=== PATIENT | female | born 1965 | race Caucasian/White ===

== ENCOUNTER → 2019-06-28 | Outpatient (CLI) | payer OTHER ==
--- NOTE | 2019-06-30 08:22 | CT ---
EXAMINATION TYPE: CT chest w con DATE OF EXAM: 06/28/2019 COMPARISON: NONE HISTORY: Cough. Neoplasm of unspecified behavior. CT DLP: 403 mGycm. Automated Exposure Control for Dose Reduction was Utilized. TECHNIQUE: CT scan of the thorax is performed following with IV Contrast, patient injected with 100m l mL of Isovue 300. FINDINGS: LUNGS: There is moderate centrilobular and paraseptal emphysema. There is a spiculated left upper lob e nodule measuring 1.3 x 1.0 cm. This radiates to the pleural surface and is laterally positioned. Th ere is a cavitary lesion within the right lower lobe measuring 1.5 x 2.7 cm. This also has a spiculat ed appearance. There is a probable high density, appearing calcified, granuloma in the right lateral upper lobe measuring 3 mm that is subpleural location on series 4 image 19. Bandlike pleural parenchy mal scarring on image 27 of the medial left upper lobe and mediastinum. MEDIASTINUM: There are no greater than 1 cm hilar or mediastinal lymph nodes. No pericardial effus ion is seen. OTHER: Mild degree hepatic steatosis is seen, limiting evaluation for hepatic masses. Liver is not en tirely visualized on the CT thorax. There is a left adrenal gland mass measuring 2.6 x 1.9 cm that do es not fit criteria for a benign adenoma. Mild multilevel degenerative disc disease of the thoracic s pine. IMPRESSION: 1. Spiculated left upper lobe nodule and cavitary spiculated right lower lobe nodule that should both be considered neoplasm until proven otherwise. PET/CT could assess for staging if not previously per formed. 2. Left adrenal gland mass, suspicious for metastasis. 2.
== END | disposition home or self-care (01) ==
LOC: RADCTMAIN 16:20
PROVIDERS: ATTEND Family Medicine
DX: R91.1 Solitary pulmonary nodule (principal); D49.1 Neoplasm of unspecified behavior of respiratory system
CPT/HCPCS: 71260; Q9967

== ENCOUNTER → 2019-09-16 | Outpatient (CLI) | payer OTHER ==
--- NOTE | 2019-09-17 11:21 | MM ---
Reason for exam: screening (asymptomatic). Last mammogram was performed 13 years and 6 months ago. History: Patient is postmenopausal and history of other cancer. Family history of breast cancer in aunt. Physical Findings: A clinical breast exam by your physician is recommended on an annual basis and results should be correlated with mammographic findings. MG Screening Mammo w CAD Bilateral CC and MLO view(s) were taken. No prior studies available for comparison. There are scattered fibroglandular densities. There is no discrete abnormality. ASSESSMENT: Negative, BI-RAD 1 RECOMMENDATION: Routine screening mammogram of both breasts in 1 year.
== END ==
LOC: RADMAMWWP 13:34
PROVIDERS: ATTEND Family Medicine
DX: Z12.39 Encounter for other screening for malignant neoplasm of breast (principal)
CPT/HCPCS: 77067

== ENCOUNTER 2019-09-18 10:25 | Day surgery (SDC) | payer OTHER ==
[2019-09-17 09:25] VITALS: BMI 26.6
[~2019-09-18 10:25] MED LIST: ALBUTEROL NEB (CONC) 2.5 MG/0.5 ML INHALATION ONE; ATROPINE SULFATE 0.4 MG/ML 1 ML VIAL IM ONE; LIDOCAINE 1% 20 ML VIAL (10MG/ML) FOR IV START INTRADERMA PRN; LIDOCAINE 2% (PF) 20 MG/ML 5 ML VIAL INHALATION ONE; LIDOCAINE VISCOUS 300 MG/15 ML CUP MUCOUS MEM ONE; SODIUM CHLORIDE 0.9% 1,000 ML IV SCH
[2019-09-18] MEDS: LACTATED RINGERS 1,000 ML IV SCH ×2 (11:20→12:44)
--- NOTE | 2019-09-18 11:55 | CT ---
EXAMINATION TYPE: CT Chest abiola Moeller Protocol DATE OF EXAM: 09/18/2019 COMPARISON: Chest CT June 28, 2019 HISTORY: bronchoscopy navigation guidance, abnormal CT. CT DLP: 581 mGycm Automated exposure control for dose reduction was used. FINDINGS: Exam is for microscopy planning and not for diagnostic purposes. There is background chronic emphysem atous change redemonstrated. There is persistent irregular scarlike lesion superior left lower lobe a butting the fissure with areas of lucency and spiculated soft tissue density consistent with cavitary lesion redemonstrated. There is more suspicious spiculated 1.3 x 1.0 cm nodule lateral left upper lo be redemonstrated. No significant change from prior study. IMPRESSION:
[2019-09-18] MEDS ORDERED: GLYCOPYRROLATE 0.2 MG/ML 2 ML VIAL ONE (12:46)
[2019-09-18] MEDS ORDERED: PROPOFOL 10 MG/ML 20 ML VIAL IV ONE (12:46)
[2019-09-18] MEDS ORDERED: MIDAZOLAM 2 MG/2 ML VIAL ONE (12:46)
[2019-09-18] MEDS ORDERED: NEOSTIGMINE 1 MG/ML 10 ML VIAL ONE (12:46)
[2019-09-18] MEDS ORDERED: LIDOCAINE 1% INJ 10MG/ML (20 ML MDV) ONE (12:46)
[2019-09-18] MEDS ORDERED: SUCCINYLCHOLINE CHLORIDE 100 MG/5 ML SYR IV ONE (12:46)
[2019-09-18] MEDS ORDERED: fentaNYL (PF) 50 MCG/ML 2 ML AMP ONE (12:46)
[2019-09-18] MEDS ORDERED: ROCURONIUM BROMIDE 10 MG/ML 10 ML VIAL IV ONE (12:46)
[2019-09-18] MEDS ORDERED: LACTATED RINGERS 1,000 ML IV ONE (13:49)
[2019-09-18 14:17] VITALS: TEMP 97.2
[2019-09-18 14:42] VITALS: RESP 16
--- NOTE | 2019-09-18 14:55 | XR ---
EXAMINATION TYPE: XR chest 1V portable DATE OF EXAM: 09/18/2019 COMPARISON: CT chest dated 09/18/2019 HISTORY: Status post bronchoscopy. Left upper lobe biopsy TECHNIQUE: Single frontal view of the chest is obtained. FINDINGS: No postprocedural pneumothorax is seen. Peripheral left upper lobe opacity relates to the known pulmonary nodule. No focal consolidation, pleural effusion or pneumothorax. Cardia mediastinal silhouette is within normal limits. IMPRESSION: No pneumothorax status post bronchoscopy and left upper lobe biopsy.
[2019-09-18 15:51] VITALS: BP 118/76; PULSE 84
--- NOTE | 2019-09-18 20:26 | PCN ---
PROCEDURE NOTE PROCEDURE: Navigational bronchoscopy. PREOPERATIVE DIAGNOSES: 1. Solitary pulmonary nodule, left upper lobe. 2. Solitary pulmonary nodule, right lower lobe. 3. Rule out cancer. POSTOPERATIVE DIAGNOSES: 1. Solitary pulmonary nodule, left upper lobe. 2. Solitary pulmonary nodule, right lower lobe. 3. Rule out cancer. PROCEDURES: Bronchoscopy, bronchoalveolar lavage, multiple transbronchial needle aspirations, brushes, transbronchial biopsies, all of the left upper lobe. OPERATORS: 1. Dr. Harrison Adams. 2. Dr. Trish Livingston. 3. Hi Gomes. DESCRIPTION OF PROCEDURE: The patient's procedure was done in the operating room. It was done under general anesthesia. The CARD CLEANER and anesthesiologist provided general anesthesia. There was informed consent and universal timeout. The patient's procedure was done in room #2 in the operating room. After the patient was adequately sedated and anesthetized and on the ventilator, the bronchoscope was inserted through the bronchoscope adapter connected to the endotracheal tube. There were two lesions to look at. There was one in the right lower lobe, which we could not get to. The other lesion was in the periphery of the left upper lobe. Under electromagnetic guidance, we did multiple transbronchial biopsies to the left upper lobe lesion. We also did transbronchial needle aspirations to the left upper lobe lesion. We brushed the left upper lobe lesion and we washed the left upper lobe lesion. There were no immediate complications. There was no significant bleeding. The patient tolerated the procedure well and was stable throughout the procedure. A chest x-ray will be done to rule out pneumothorax. The specimens will be sent to the laboratory for analysis. MMODL / IJN: [id number] /
== END 2019-09-18 16:03 | disposition home or self-care (01) ==
LOC: ORWHC2ENDO 10:25
PROVIDERS: ATTEND Internal Medicine Critical Care Medicine
DX: R91.1 Solitary pulmonary nodule (principal); Z88.2 Allergy status to sulfonamides; Z79.899 Other long term (current) drug therapy; Z72.0 Tobacco use; J44.9 Chronic obstructive pulmonary disease, unspecified; K21.9 Gastro-esophageal reflux disease without esophagitis; R06.00 Dyspnea, unspecified; Z87.01 Personal history of pneumonia (recurrent); Z83.3 Family history of diabetes mellitus; Z80.49 Family history of malignant neoplasm of other genital organs; F17.200 Nicotine dependence, unspecified, uncomplicated; N83.209 Unspecified ovarian cyst, unspecified side; Z79.82 Long term (current) use of aspirin
CPT/HCPCS: 88104; 88108; 88305; 88173; 71045; 71250; 31628; 31623; 31624; 31627; J2250; J2710; J2001; J3010; J0330; J2704; 31625; 31633

== ENCOUNTER → 2020-06-19 | Outpatient (CLI) | payer OTHER ==
--- NOTE | 2020-06-19 16:14 | MR ---
EXAMINATION TYPE: MR brain wo/w con DATE OF EXAM: 06/19/2020 1:29 PM COMPARISON: NONE HISTORY: Malignant neoplasm of lower lobe rt lung, dizzziness CONTRAST: Patient received 7.5 mL intravenous Gadavist gadolinium contrast. Multiplanar and multispin-echo imaging of the brain was performed . Pre and post contrast enhanced i mages are obtained. The ventricles, basal cisterns and sulci overlying the cerebral convexities are minimally enlarged. There is evidence of mild periventricular white matter ischemic demyelination. Remote deep white matter insults are also noted. No acute edema is seen on diffusion weighted imaging. There is no evidence for midline shift or mass effect. Acute intracranial hemorrhage or extra-axial collection is not evident. No enhancing lesions are seen. The paranasal sinuses and mastoid air cells are well-aerated. IMPRESSION: Age-related atrophic and chronic small vessel ischemic change. No acute intracranial process at this time. No enhancing lesions are seen.
== END | disposition home or self-care (01) ==
LOC: RADMRIMAIN 12:27
PROVIDERS: ATTEND Internal Medicine Hematology & Oncology
DX: C34.31 Malignant neoplasm of lower lobe, right bronchus or lung (principal); C34.12 Malignant neoplasm of upper lobe, left bronchus or lung; G31.1 Senile degeneration of brain, not elsewhere classified; I67.82 Cerebral ischemia
CPT/HCPCS: 70553; A9585

== ENCOUNTER → 2020-07-13 | Outpatient (CLI) | payer OTHER ==
[2020-07-13 10:15] LABS: African American GFR (CKD) >90 (>60 ml/min/1.73 sqM); Blood Urea Nitrogen 11 mg/dL (7-17); Non-African American GFR(CKD) >90 (>60 ml/min/1.73 sqM)
--- NOTE | 2020-07-13 10:56 | CT ---
EXAMINATION TYPE: CT angio chest DATE OF EXAM: 07/13/2020 COMPARISON: June 28, 2019 HISTORY: SOB, PE, lung CA CT DLP: 285.6 mGycm CONTRAST: CT chest with contrast and 3D reconstruction with MIP imaging is performed with IV Contrast, patient injected with 46 mL of Isovue 370. Contrast-enhanced CT of the chest was performed through the course of the pulmonary arteries with patricia g and mediastinal window settings submitted. 3D reconstruction with MIP imaging was also performed. PULMONARY ARTERIES: The pulmonary arteries and their major tributaries are patent. I do not see kevin dence for sizable filling defect to suggest pulmonary embolic process. LUNGS: There are new irregular areas of soft tissue density within the right upper lobe with internal areas of increased attenuation which may reflect calcification and/or suture material. Measurement i s difficult however the largest area measures 3.5 x 2.5 cm. Focal pleural thickening right lower lobe . Small right-sided pleural effusion. Correlate patient's surgical history. Recurrent neoplasm is not excluded. Infiltrates of other etiology are also not excluded. Similar-appearing but smaller area of density left upper lobe measures 1.3 x 2.7 cm. MEDIASTINUM: Thoracic aorta is of normal caliber,however, evaluation is limited given timing of the contrast bolus. If there is concern for thoracic aortic pathology consider DILIA. Correlate clinicall y . The heart is not enlarged. No evidence for mediastinal mass. No mediastinal lymph nodes greater than 1cm. HILAR STRUCTURES: No evidence for mass. No hilar lymph nodes greater than 1 cm. UPPER ABDOMEN: Left adrenal lesion is unchanged at 2.5 cm. Adenoma versus metastatic disease. Hiatal hernia seen small size. IMPRESSION: 1. There are new irregular areas of soft tissue density within the bilateral upper lobes which may b e postprocedural in nature. Recurrent neoplasm and/or infiltrates difficult to exclude. Correlate cli nically and consider PET/CT correlation. 2. No evidence for pulmonary embolism.
== END | disposition home or self-care (01) ==
LOC: RADCTMAIN 09:31
PROVIDERS: ATTEND Internal Medicine Hematology & Oncology
DX: J98.4 Other disorders of lung (principal); C34.31 Malignant neoplasm of lower lobe, right bronchus or lung
CPT/HCPCS: 82565; 84520; 71275; Q9967

== ENCOUNTER → 2020-07-15 | Outpatient (CLI) | payer OTHER ==
[2020-07-15 18:48] LABS: African American GFR (CKD) 82.3 (60.0-200.0); Albumin 4.5 g/dL (3.80-4.90); Albumin/Globulin Ratio 1.8 (1.60-3.17); Anion Gap 12.3 mmol/L (4.00-12.00); BUN/Creat Ratio 14.44 Ratio (12.00-20.00); Calcium 9.1 mg/dL (8.7-10.3); Carbon Dioxide 24.7 mmol/L (21.6-31.8); Globulin 2.5 g/dL (1.6-3.3); Potassium 4.2 mmol/L (3.5-5.5); Total Bilirubin 0.2 mg/dL (0.3-1.2)
== END | disposition home or self-care (01) ==
LOC: LABWHC1 09:36
PROVIDERS: ATTEND Internal Medicine Interventional Cardiology
DX: R06.02 Shortness of breath (principal)
CPT/HCPCS: 36415; 80053; 83880

== ENCOUNTER → 2021-01-08 | Outpatient (CLI) | payer OTHER ==
--- NOTE | 2021-01-08 15:40 | CT ---
EXAMINATION TYPE: CT chest w con DATE OF EXAM: 01/08/2021 COMPARISON: Prior chest CT July 23, 2020 and older studies. HISTORY: Bilateral lung cancer CT DLP: 411.8 mGycm. Automated Exposure Control for Dose Reduction was Utilized. TECHNIQUE: CT scan of the thorax is performed following with IV Contrast, patient injected with 100 mL of Isovue 300. FINDINGS: LUNGS: Postsurgical change to the left lung apex and upper lobe redemonstrated with linear scarring a nd slightly more thickened tissue and calcification extending towards the left suprahilar region. No significant change from most recent CT. Left apical volume loss with superior hilar retraction redemo nstrated. Also persistent superior medial right lower lobe surgical change with sutures and soft tissue density posterior to the trachea just above the mariano extending inferiorly and laterally. This is grossly u nchanged from recent CT. Scattered additional areas of mild scarring and/or atelectasis. No new or enlarging masses or nodules . MEDIASTINUM: There are no new greater than 1 cm hilar or mediastinal lymph nodes. Stable prominent bu t subcentimeter subcarinal lymph node on image 26 unchanged from June 28, 2019 CT. No cardiomegaly or pericardial effusion is seen. OTHER: Small size hiatal hernia redemonstrated. Persistent left greater than right bilateral adrenal masses unchanged from last few CT studies. IMPRESSION: Overall stable findings consistent with posttreatment change of bilateral lungs. No new o r enlarging mass or adenopathy identified to suggest active neoplastic recurrence.
== END | disposition home or self-care (01) ==
LOC: RADCTMAIN 14:46
PROVIDERS: ATTEND Internal Medicine Hematology & Oncology
DX: C34.31 Malignant neoplasm of lower lobe, right bronchus or lung (principal); C34.12 Malignant neoplasm of upper lobe, left bronchus or lung
CPT/HCPCS: 71260; Q9967

== ENCOUNTER → 2021-07-07 | Outpatient (CLI) | payer OTHER ==
--- NOTE | 2021-07-07 15:01 | CT ---
EXAMINATION TYPE: CT chest w con DATE OF EXAM: 07/07/2021 COMPARISON: 01/08/2021 HISTORY: Lung CA CT DLP: 615 mGycm, Automated exposure control for dose reduction was used. CONTRAST: Performed injected with 100 mL of Isovue 300. TECHNIQUE: Axial images were obtained at 5 mm thick sections. Reconstructed images are reviewed on [employer] computer in the coronal plane. FINDINGS: Portion of the thyroid visualized is normal. There is thickening through the posterior medial right suprahilar region. Some surgical suture extend s towards the pleural margin. This region appears stable. No enlarged mediastinal or hilar adenopathy is evident. The ascending aorta diameter at the level o f the main pulmonary artery is 2.9 cm. The main pulmonary artery diameter at the bifurcation is 2.[address] sections are obtained through the upper abdomen. There is thickening of the left adrenal g land measuring 1.6 cm. This was present previously. Milder thickening appears stable within the right adrenal gland. IMPRESSIONS: 1. Stable appearance to the CT chest. Postsurgical changes increased density remain within the carbonation tester ior medial right upper lobe. 2. Stable appearance of the thickened left adrenal gland
== END | disposition home or self-care (01) ==
LOC: RADCTMAIN 09:32
PROVIDERS: ATTEND Internal Medicine Hematology & Oncology
DX: C34.81 Malignant neoplasm of overlapping sites of right bronchus and lung (principal)
CPT/HCPCS: 71260

== ENCOUNTER → 2022-01-05 | Outpatient (CLI) | payer OTHER ==
--- NOTE | 2022-01-05 14:37 | CT ---
EXAMINATION TYPE: CT chest w con DATE OF EXAM: 01/05/2022 COMPARISON: CT dated 07/07/2021 HISTORY: f/u lung ca CT DLP: 725 mGycm Automated exposure control for dose reduction was used. TECHNIQUE: CT scan of the chest is performed with IV Contrast, patient injected with 100 mL of Isovue 300. FINDINGS: LUNGS: Apparently slightly larger irregular soft tissue lesion at the medial posterior aspect of the right upper lung zone adjacent to the surgical suture measuring 3 cm compared to 2.4 cm previously. M ore soft tissue thickening is also seen inferiorly along the surgical suture with loss of volume. The right posterior lung bases spiculated lesion is slightly more prominent today measuring 2.8 cm yanick red to 2.1 cm previously. The adjacent more medial pleural-based nodule is also more prominent measur ing 5 mm compared to 1.5 mm previously. This is concerning for progressive recurrent/metastatic disea se. Slightly larger minimal right pleural fluid. No left-sided pleural fluid. Stable postsurgical glenroy nges in the left upper lung zone. Patent trachea and main bronchi. MEDIASTINUM: No gross cardiomegaly. The pulmonary trunk measures 3.1 cm which may suggest pulmonary h ypertension. Slightly more prominent subcarinal lymph node measuring 12 mm compared to 10 mm previous ly. Few subcentimeter anterior mediastinal lymph nodes, not well appreciated previously. OTHER: Suspected hepatic steatosis. Stable left adrenal lesion measuring up to 2.5 cm as well as the right adrenal lesion measuring up to 18 mm. No aggressive bone lesion. IMPRESSION: Slightly larger right upper lung zone lesion as well as the spiculated lesion at the posterior aspect of the right lung base and the adjacent pleural-based nodule with more prominent mediastinal lymph n odes as detailed above. This is concerning for recurrent or progressive metastatic disease. Further P ET scan assessment can be considered.
== END | disposition home or self-care (01) ==
LOC: RADCTMAIN 11:59
PROVIDERS: ATTEND Internal Medicine Hematology & Oncology
DX: C34.31 Malignant neoplasm of lower lobe, right bronchus or lung (principal)
CPT/HCPCS: 71260; Q9967

== ENCOUNTER → 2022-01-21 | Outpatient (CLI) | payer OTHER ==
--- NOTE | 2022-01-24 09:57 | PE ---
EXAMINATION TYPE: PET CT fusion skull to thigh DATE OF EXAM: 01/21/2022 COMPARISON: Most recent chest CT January 15, 2022 and older CTs HISTORY: Lung cancer originally diagnosed in 2019 involving both lungs completed chemotherapy Septemb er 2020. The current lung nodules. TECHNIQUE: Following the intravenous administration of 12.55 mCi of F-18 FDG, whole body images are performed from the skull base to the midthigh. Images are reviewed on the computer in the coronal, a xial, and sagittal planes. Reconstructed rotating images are created on independent workstation and reviewed on the computer. A localization and attenuation correction CT is performed in conjunction with the PET scan. Blood glucose level equals 87 SCAN: Subsequent Scan FINDINGS: SKULL BASE AND NECK: No areas of abnormal hypermetabolic uptake. CHEST, MEDIASTINUM, AND HILAR REGION: Posttreatment changes to the left lung apex and right lung base redemonstrated. Persistent mild to moderate parenchymal scarring in the bases right greater than lef t with right basilar volume loss. Areas of slightly more nodular soft tissue fullness or nodularity s how mild hypermetabolic uptake, max SUV is 3.22 corresponding to area of surgical suture and slight s oft tissue thickening axial image 90. ABDOMEN AND PELVIS: No adrenal masses. Normal excretion. Nonspecific prominent bowel uptake right col on near cecum axial image 168 could reflect colonic polyp. The max SUV is 10.6 at this level. Correla tion with colonoscopy is advised if has not been performed recently. OSSEOUS STRUCTURES: No suspicious hypermetabolic uptake. OTHER CT: Normal-appearing appendix. Anteverted uterus. Occasional scattered pelvic phleboliths. Dive rticula in the left and sigmoid colon. IMPRESSION: Posttreatment changes to bilateral lungs most prominent in the right lung base. No convin cing evidence for active local or metastatic malignant recurrence. Organizing scar tissue right lung base favored. Continued CT and/or PET/CT monitoring advised. Possible right colon or cecal large poly p. Correlate clinically.
== END | disposition home or self-care (01) ==
LOC: RADPETMAIN 16:22
PROVIDERS: ATTEND Internal Medicine Hematology & Oncology
DX: C34.31 Malignant neoplasm of lower lobe, right bronchus or lung (principal)
CPT/HCPCS: 78815; A9552

== ENCOUNTER → 2022-08-16 | Outpatient (CLI) | payer OTHER ==
--- NOTE | 2022-08-17 08:46 | CT ---
EXAMINATION TYPE: CT angio chest DATE OF EXAM: 08/17/2022 COMPARISON: 06/21/2022 HISTORY: 57-year-old female I26.99, other pulmonary embolism without acute cor pulmonale. TECHNIQUE: Contiguous axial scanning of the chest performed with IV Contrast, patient injected with 5 3 mL of Isovue 370. Coronal/sagittal MIP reconstructions performed. CT DLP: 461.7 mGycm Automated exposure control for dose reduction was used. FINDINGS: Heart upper limits of normal in size. Trace pericardial fluid Aorta normal caliber conventional arch was a branching anatomy. Satisfactory opacification of the pulmonary system but with mild breathing motion artifact. No defini te pulmonary embolus seen with particular attention to the area in the left lower lobe. No increasing thoracic lymphadenopathy. However, there are scattered areas of increasing pleural based soft tissue thickening, for example, l ateral right upper lung and 1.6 cm versus 7 mm, previously. Anteromedial right lung measuring up to 7 mm. Posterolateral right lower lobe at 1.1 cm versus 7 mm, previously. Posteromedial subpleural thickening measures up to 2.8 x 1.8 cm versus 3.3 x 1.7 cm, previously, not significantly changed. However, new from 01/21/2022. Areas of chronic consolidation and volume loss at the right perihilar region extending to the anterio r right base2 and left midlung remain unchanged from 06/21/2022. Background moderate centrilobular emp hysema. Scattered areas of subpleural reticular opacity, probably scarring. Similar to 06/21/2022. Small hiatal hernia. Visualized upper abdomen suggests underlying hepatic steatosis. Unchanged low density nodularity of both adrenal glands measuring up to 2.9 x 1.5 cm on the left and 2.0 x 1.4 cm on the right. Bones: No osseous destructive process. IMPRESSION: 1. NO EVIDENCE FOR PULMONARY EMBOLUS WITH PARTICULAR ATTENTION TO THE PREVIOUSLY MENTIONED AREA IN TH E LEFT LOWER LOBE. 2. EXTENSIVE BILATERAL POSTTREATMENT CHANGES, RIGHT GREATER THAN LEFT. AREAS OF SUBPLEURAL THICKENING THROUGHOUT THE RIGHT HEMITHORAX ARE EITHER SIMILAR OR INCREASING COMPARED TO 06/21/2022 AND MOST OF T HE CHANGES ARE ENTIRELY NEW FROM 01/21/2022. FINDINGS MAY REFLECT EXTENSIVE SCARRING AND PROGRESSIVE P OSTTREATMENT CHANGE. ONGOING CLOSE SURVEILLANCE RECOMMENDED. IF CLINICAL CONCERN FOR RECURRENT DISEAS E, PET/CT CAN BE CONSIDERED. 3. SMALL HIATAL HERNIA AND BILATERAL LIPID RICH ADRENAL ADENOMAS REDEMONSTRATED.
== END | disposition home or self-care (01) ==
LOC: RADCTMAIN 13:26
PROVIDERS: ATTEND Internal Medicine Critical Care Medicine
DX: I26.99 Other pulmonary embolism without acute cor pulmonale (principal); K44.9 Diaphragmatic hernia without obstruction or gangrene; D35.00 Benign neoplasm of unspecified adrenal gland
CPT/HCPCS: 71275; Q9967

== ENCOUNTER → 2022-09-02 | Outpatient (CLI) | payer OTHER ==
--- NOTE | 2022-09-03 11:51 | PE ---
EXAMINATION TYPE: PET CT fusion skull to thigh DATE OF EXAM: 09/02/2022 CLINICAL INDICATION:Female, 57 years old with history of [id number]; TECHNIQUE: Following the intravenous administration of 9.7 mCi of F-18 FDG, whole body images are performed from the skull base to the midthigh. Images are reviewed on the computer in the coronal, a xial, and sagittal planes. Reconstructed rotating images are created on independent workstation and reviewed on the computer. A non-contrast CT is performed in conjunction with the PET scan. Glucose level 88 mg/dL COMPARISON: CT 06/21/2022. PET/CT 01/21/2022, FINDINGS: Mediastinal SUV mean is 1.3. Hepatic parenchyma SUV mean is 1.9. SKULL BASE AND NECK: No suspicious FDG activity. CHEST, MEDIASTINUM, AND HILAR REGION: Somewhat curvilinear uptake is seen within the right lower lung max SUV 5.2 previously 3.2. Some of the uptake is along the medial pleura No focus of uptake definit ively visualized. There is somewhat loculated pleural effusion present on the right. There is postsur gical change the bilateral lungs. ABDOMEN AND PELVIS: No suspicious FDG activity. OSSEOUS STRUCTURES: No suspicious FDG activity. OTHER CT: Adenomatous hypertrophy changes of the adrenal glands bilaterally left greater than right. Scattered clonic diverticulosis. Appendix is normal. Left posterior lower neck muscle strain with mil d FDG activity. IMPRESSION: No convincing evidence for recurrence, streaky curvilinear uptake within the right lung base with mil dly elevated FDG activity. Findings likely represent atelectasis/infectious/inflammatory process. Att ention on follow-up imaging.
== END | disposition home or self-care (01) ==
LOC: RADPETMAIN 06:55
PROVIDERS: ATTEND Internal Medicine Hematology & Oncology
DX: C34.31 Malignant neoplasm of lower lobe, right bronchus or lung (principal); C34.12 Malignant neoplasm of upper lobe, left bronchus or lung
CPT/HCPCS: 78815; A9552

== ENCOUNTER → 2022-09-12 | Outpatient (CLI) | payer OTHER ==
--- NOTE | 2022-09-12 14:25 | US ---
EXAMINATION TYPE: US venous doppler duplex LE BI DATE OF EXAM: 09/12/2022 2:11 PM COMPARISON: NONE CLINICAL HISTORY: M79.661 pain right leg M79.662 pain left leg. History of lung cancer. SIDE PERFORMED: Bilateral TECHNIQUE: The lower extremity deep venous system is examined utilizing real time linear array sonog piper with graded compression, doppler sonography and color-flow sonography. VESSELS IMAGED: Common Femoral Vein Deep Femoral Vein Greater Saphenous Vein * Femoral Vein Popliteal Vein Small Saphenous Vein * Proximal Calf Veins (* superficial vessels) Right Leg: Negative for DVT Left Leg: Negative for DVT Grayscale, color doppler, spectral doppler imaging performed of the deep veins of the bilateral lower extremities. There is normal flow, compressibility, vascular waveforms. IMPRESSION: No ultrasound evidence for acute DVT in either lower extremity.
== END | disposition home or self-care (01) ==
LOC: RADUSWWP 13:35
PROVIDERS: ATTEND Internal Medicine Critical Care Medicine
DX: M79.661 Pain in right lower leg (principal); M79.662 Pain in left lower leg
CPT/HCPCS: 93970

== ENCOUNTER → 2023-01-25 | Outpatient (CLI) | payer OTHER ==
--- NOTE | 2023-01-25 14:15 | P.PAINPG ---
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 Pt states pain level is at 7/10 in intensity, constant, localized in the R mid back, sharp, stabbing in character w shooting pain towards the R side of chest and R mid back. Pain is provoked by bending. Pain is alleviated slightly by medications ([place], Neurontin), injections in the past, repositioning and rest. PMH: Lung CA (2019) PSH: Tonsillectomy, CHIO [place] Resection, RLL Resection, R Chest Tube SH: Hx of 15 pack/ yr tobacco use, Rare ETOH use, No illicit drug use FH: Fa- CA. Mo- CA, DVT, PE. All: See list Meds: See list REVIEW OF ORGAN SYSTEMS: CONSTITUTIONAL: No fevers or chills. No recent weight loss. NEUROLOGICAL: + numbness and tingling along the distal extremities. No seizure disorders or headaches. MUSCULOSKELETAL: + pain PSYCHIATRIC: Denies current depression or suicidal thoughts. Physical Examinations : Constitutional : Cooperative , not in acute distress . Neurologic : Cranial nerve II to XII intact. No focal neurological deficits. Psychiatric : alert & oriented x 3. Matching mood & appropriate affect. Judgment & insight intact. Musculoskeletal : Cervical Spine Motor strength in the deltoid and biceps: Normal right side. Normal Left side Motor strength biceps and the wrist extensors: Normal right side . Normal left side Motor strength in the triceps muscle: Normal right side. Normal left side Deep tendon reflexes: Normal at the biceps. Normal at Brachioradialis. Normal at triceps Vertebral body tenderness to deep palpation over Cervical facet loading test: positive bilaterally Spurling test: positive bilaterally Neck distraction test: positive bilaterally Stefania sign: positive bilaterally Thoracic spine TTP over T7, T8, T9. Incisional Scar pre sent. Lumbar spine Motor strength lower extremities ,thigh and legs 5/5 Right side , 5/5 Left side Deep tendon reflexes : Normal Knee Jerk. Normal Ankle Jerk Vertebral body tenderness over Lumbar facet Loading Test: positive Right / positive Left Range of motion of the lumbar spine Flexion 30 degrees, extension 10 degrees Straight Leg Raise test: Left/ Right positive at degree German test: positive right / positive left. Severe tenderness over the Sacroiliac joint on the Right / Left sides Gaenslen test: positive bilaterally Seated flexion test: positive bilaterally. Sacral spine : Severe tenderness over the Sacroiliac joint: right side / left side Range of motion: Flexion of the lumbar spine <60 degrees Range of motion: Extension of the lumba r spine <20 degrees Gaenslen's Test positive Marlon's Test positive German test: positive right side / left side Thigh Thrust Test Sacral Thrust Test Imaging: CT scan chest from 01/05/23 reviewed Assessment/ Plan : Intercostal Neuralgia Recommendation of R Intercostal NB T7, T8, T9. May need a series of injectins for optimal pain relief. May need RF for senior living pain relief. Risks, benefits of procedure discussed and patient verbalized understanding. Admits to aspirin or anti- coagulant use or medical history of diabetes. Protocol for discontinuation/ continuation of medications francecsa procedure discussed. All questions answered. I have spent greater than 30 minutes on patient care today. Dr Gamez was available by phone for the evaluation of this patient. The time was used to re view the medical records including relevant urine studies and Prescription history (MAPs), review of the available imaging, evaluation and examination of the patient, coordination of care with the medical staff and if applicable referring physicians, as well as creation of the medical record PQRS Narrative: Smoking Status Current every day smoker Home Medications: Ambulatory Orders Albuterol Inhaler [Ventolin Hfa Inhaler] 1 - 2 puff INHALATION RT-Q6H PRN 09/17/19 Cetirizine HCl [Zyrtec] 10 mg PO DAILY 06/21/22 Gabapentin [Neurontin] 100 mg PO BID 06/21/22 Ibuprofen [Motrin Ib] 600 mg PO Q5H PRN 06/21/22 Omeprazole Magnesium [PriLOSEC OTC] 20 mg PO BID 06/21/22 Apixaban [Eliquis] 5 mg PO BID 30 Days #60 tab 06/24/22 Apixaban [Eliquis] 10 mg PO BID 10 Days #20 tab 06/24/22 Fluticasone/Vilanterol [Breo Ellipta 200-25 Mcg Inhaler] 1 puff INHALATION RT- DAILY 30 Days #1 each 06/24/22 Ipratropium-Albuterol Nebulize [Duoneb 0.5 mg-3 mg/3 ml Soln] 3 ml INHALATION RT-QID 30 Days #300 ml 06/24/22 methylPREDNISolone Dose Pack [Medrol Dose Pack] 4 mg PO DIRECTED #1 packet 06/24/22 Controlled Substance Measures - Controlled Substance Measures Is patient prescribed a controlled substance at discharge?: No
[2023-01-25 15:06] VITALS: BP 136/80; PULSE 120; RESP 18; TEMP 98.4
== END ==
LOC: PNWHC3 10:58
PROVIDERS: ATTEND Specialist
DX: C34.90 Malignant neoplasm of unspecified part of unspecified bronchus or lung (principal); F17.200 Nicotine dependence, unspecified, uncomplicated; G58.0 Intercostal neuropathy; Z88.2 Allergy status to sulfonamides
CPT/HCPCS: 99211

== ENCOUNTER 2023-03-02 07:16 | Day surgery (SDC) | payer OTHER ==
[2023-02-28 14:01] VITALS: BMI 32.1
[~2023-03-02 07:16] MED LIST changes: -ALBUTEROL NEB (CONC) 2.5 MG/0.5 ML INHALATION ONE; -ATROPINE SULFATE 0.4 MG/ML 1 ML VIAL IM ONE; +LACTATED RINGERS 1,000 ML IV SCH; -LIDOCAINE 1% 20 ML VIAL (10MG/ML) FOR IV START INTRADERMA PRN; -LIDOCAINE 2% (PF) 20 MG/ML 5 ML VIAL INHALATION ONE; -LIDOCAINE VISCOUS 300 MG/15 ML CUP MUCOUS MEM ONE; -SODIUM CHLORIDE 0.9% 1,000 ML IV SCH
[2023-03-02 07:56] VITALS: TEMP 98.8
[2023-03-02] MEDS ORDERED: MIDAZOLAM 2 MG/2 ML VIAL ONE (08:06)
[2023-03-02] MEDS ORDERED: ROPIVACAINE 5 MG/ML 20 ML AMPULE ONE (08:06)
[2023-03-02] MEDS ORDERED: methylPREDNISolone ACETATE 40 MG/ML 1 ML VIAL ONE (08:06)
[2023-03-02] MEDS ORDERED: fentaNYL (PF) 50 MCG/ML 2 ML AMP ONE (08:06)
[2023-03-02 08:40] VITALS: RESP 20
[2023-03-02] MEDS ORDERED: IV FLUID CONTINUATION 850 ML IV ONE (08:43)
[2023-03-02 08:55] VITALS: BP 119/72; PULSE 105
--- NOTE | 2023-03-02 08:55 | FL ---
EXAMINATION TYPE: FL guided pain mgmt statistic DATE OF EXAM: 03/02/2023 CLINICAL HISTORY: Mid back pain. TECHNIQUE: Fluoroscopy. COMPARISON: None. FINDINGS: Fluoroscopic guidance was provided during pain relief procedure performed by Dr. Andino. A total of 13 seconds of fluoroscopic time was utilized during the procedure and 1 spot images are a cquired. Single image acquired shows needle localization at several levels in the posterior ribs adj acent to the thoracic spine. IMPRESSION: As Above.
--- NOTE | 2023-03-02 10:48 | P.PCN ---
Date of Procedure: 03/02/23 Description of Procedure: Preop diagnosis, and postop diagnosis : Postthoracotomy pain syndrome, and intercostal neuralgia, history of lung cancer Procedure : Right side T7, T8, and T9 intercostal nerve block under fluoroscopic guidance Surgeon : Edgar Andino Anesthesia : 1% lidocaine, and Versed 2 mg, and fentanyl 50 g Sedation supervision times : 809 - 08 Estimated blood loss: None Complications: None Specimen removed: None Fluoroscopic images : Saved to electronic medical records Indication for procedure: Patient had chronic history of right side T7, T8, and T9 intercostal neuralgia after thoracotomy. She tried conservative therapy. PROCEDURE DESCRIPTION: The patient was seen and identified in the preoperative area. After discussing the risks, benefits, possible complications, and alternatives with the patient, the patient signed informed consent. Peripheral IV line was placed. Vital sings were taken and stable throughout the procedure. PROCEDURE DESCRIPTION: The patient was placed in prone position on the procedure table. Critical pause was taken. Right thoracic area was prepped with ChloraPrep and draped in the usual sterile fashion. The fluoroscopic camera was then placed over the thoracic spine to identify the T7, T8, and T9 rib just s everal centimeters lateral from the corresponding vertebral bodies. The skin overlying the target areas was superficially localized with 0.5 ml-1% lidocaine using 27-gauge 1.5-inch needle. Then a 22-gauge 3-1/2-inch needle was guided by fluoroscopy on to the T 7, T8, and T9 rib. Then the needle was walked off under fluoroscopic guidance just inferior to the corresponding ribs. After negative a spiration for CSF, blood, air, and other bodily contents and with no paresthesias. Then, again after negative aspiration for CSF, blood, air, and other bodily contents and with no paresthesias, the area was infiltrated with 3 mL of a block solution. The block solution contained 8 mL of 0.5% preservative- free ropivacaine mixed with 40 mg of Depo-Medrol. All injections, except for local skin anesthetic, were performed using extension tubing. The needle was removed. Band-Aid was applied. The patient tolerated the procedure well. Disposition : The patient tolerated the procedure very well. The patient was given detailed discharge instructions for infection, bleeding, and increased pain at the injection site, and was advised to seek immediate medical attention should significant side effects develop. Patient was given discharge instructions regarding for pneumothorax.. Patient clearly understood and if noticed any shortness of breath commanded to call 911 or come to the [facility] emergency department immediately. The patient scheduled to follow up with pain clinic in 4 week duration.
== END 2023-03-02 09:00 | disposition home or self-care (01) ==
LOC: ORPAIN 07:16
DX: G89.12 Acute post-thoracotomy pain (principal); M79.2 Neuralgia and neuritis, unspecified; Z88.2 Allergy status to sulfonamides; K21.9 Gastro-esophageal reflux disease without esophagitis; J44.9 Chronic obstructive pulmonary disease, unspecified; Z90.89 Acquired absence of other organs; Z98.890 Other specified postprocedural states; Z79.899 Other long term (current) drug therapy
CPT/HCPCS: 64420; 64421; 99152; J2250; J1030; J3010; J2795

== ENCOUNTER → 2023-03-17 | Outpatient (CLI) | payer OTHER ==
--- NOTE | 2023-03-18 09:30 | PE ---
EXAMINATION TYPE: PET CT fusion skull to thigh DATE OF EXAM: 03/17/2023 CLINICAL INDICATION:Female, 58 years old with history of C34.31; TECHNIQUE: Following the intravenous administration of 12.0 mCi of F-18 FDG, whole body images are performed from the skull base to the midthigh. Images are reviewed on the computer in the coronal, a xial, and sagittal planes. Reconstructed rotating images are created on independent workstation and reviewed on the computer. A non-contrast CT is performed in conjunction with the PET scan. Glucose level 91 mg/dL COMPARISON: CT 08/17/2022, PET/CT most recent 03/17/2023 and prior 01/24/2022. FINDINGS: Mediastinal SUV mean is 1.6. Hepatic parenchyma SUV mean is 2.4. SKULL BASE AND NECK: FDG activity at the level of the larynx somewhat circumferential max SUV 6.0, previously 2.2. CHEST, MEDIASTINUM, AND HILAR REGION: The right lung demonstrates scattered areas of pleural thickening some of which does not demonstrate increased FDG activity including an area near the right apex laterally measuring up to 17 mm in thick ness and max SUV 1.3. Other areas along the pleura are redemonstrated along the medial pleura max SUV 6.9 on today's exam, previously 4.3. And more anteriorly max SUV 4.8, previously 2.9 and more latera lly within an area in calcification max SUV 7.1. Overall the soft tissue thickening along the medial pleura is not significantly changed when comparing to prior. ABDOMEN AND PELVIS: No suspicious FDG activity. OSSEOUS STRUCTURES: No suspicious FDG activity. OTHER CT: Adenomatous hypertrophy changes of the adrenal glands bilaterally left greater than right. Scattered clonic diverticulosis. Appendix is normal. Left posterior lower neck muscle strain with mil d FDG activity. Posterior neck/left shoulder muscle strain IMPRESSION: 1. Interval increase in FDG activity along the right pleura with relatively stable appearance of the volume of nodular thickening. Given the interval increase in FDG activity this raises possibility of recurrent disease with background of post treatment change. No lymphadenopathy identified. 2. FDG activity at the level of vocal cords somewhat diffusely favored to be physiologic. Attention on follow-up imaging and clinical correlation advised.
== END | disposition home or self-care (01) ==
LOC: RADPETMAIN 07:26
PROVIDERS: ATTEND Internal Medicine Hematology & Oncology
DX: C34.31 Malignant neoplasm of lower lobe, right bronchus or lung (principal); R91.1 Solitary pulmonary nodule
CPT/HCPCS: 78815; A9552

== ENCOUNTER → 2023-03-22 | Outpatient (CLI) | payer OTHER ==
[2023-03-22 12:11] VITALS: BP 142/87; PULSE 111; RESP 18
--- NOTE | 2023-03-22 13:48 | P.PAINPG ---
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 Pt states she experienced 80 % pain relief x 3 wks s/p procedure. Pain level is provoked at 8/10 in intensity, constant, localized in the mid thoracic spine, sharp in character w shooting towards the R flank. Pain is provoked by over activity. Pain is alleviated with sitting while veered towards the L, medications, injections, repositioning and rest. Interventional pain procedures completed include R MBB T7-9 x1 Patient is currently on [place], Neurontin, Tyl, Aleve Patient denies any side effects of the medication(s), denies excessive drowsiness or sleepiness, denies suicidal ideation and reports that the current pain medication is helping to control the pain and improve activities of daily living. Patient denies any motor or sensory deficits. Patient denies any fever or night sweats, denies any change in the bowel movements or urination. Physical Examination: -Constitutional: Cooperative. Not in acute distress . - Neurologic: Cranial nerve II to XII intact. No focal neurological deficits. - Psychatric: Alert & oriented x 3. Matching mood & appropriate affect. Judgment and insight intact. - Musculoskeletal: Cervical spine: Muscle bulk/ tone/ strength in the bilateral upper extremities normal Vertebral body tenderness to palpation over Spurling test positive Distraction test positive Facet loading test positive TTP Thoracic spine Muscle bulk / tone/ strength in the bilateral paraspinal muscles normal Vertebral body tender to palpation over Facet loading test positive TTP over R T7-8, T8-9 Lumbar spine: Motor bulk/ tone/ strength lower extremities , thigh and legs : 5/5 Deep tendon reflexes : Normal Knee Jerk. Normal Ankle Jerk . Vertebral body tenderness to palpation over Lumbar Facet Loading Test positive Straight Leg Raise: positive at 30 degrees right side/ left side Gaenslen's Test positive Sacral spine : Severe tenderness over the Sacroiliac joint: right side / left side Range of motion: Flexion of the lumbar spine <60 degrees Range of motion: Extension of the lumbar spine <20 degrees Gaenslen's Test positive right side / left side German test: positive right side / left side Thigh Thrust Test positive right side / left side Sacral Thrust Test positive right side / left side Assessment and plan: Chronic mid back pain secondary to thoracic DDD, spondylosis with facet arthropathy without myelopathy Recommendation of R MBB T7-8, T8-9 #2. May need a series of injections, up until RFA, for optimal pain relief. Risks, benefits of procedure discussed and pt verbalized understanding. Admits to anticoagulant use or medical history of diabetes. Protocol for discontinuation/ continuation of medications francesca procedure discussed. Minimal anesthesia provided, if clinically indicated, consisting of Versed and Fentanyl. All questions answered. I have spent less than 30 minutes on patient care today. Dr Gamez was available by phone for the evaluation of this patient. The time was used to review the medical records including relevant urine studies and Prescription history (MAPs), review of the available imaging, evaluation and examination of the patient, coordination of care with the medical staff and if applicable referring physicians, as well as creation of the medical record PQRS Narrative: Smoking Status Current every day smoker Hx Alcohol Use (MH) No Home Medications: Ambulatory Orders Albuterol Inhaler [Ventolin Hfa Inhaler] 1 - 2 puff INHALATION RT-Q6H PRN 09/17/19 Cetirizine HCl [Zyrtec] 10 mg PO DAILY 06/21/22 Ibuprofen [Motrin Ib] 600 mg PO Q5H PRN 06/21/22 Omeprazole Magnesium [PriLOSEC OTC] 20 mg PO BID 06/21/22 Apixaban [Eliquis] 5 mg PO BID 30 Days #60 tab 06/24/22 Ipratropium-Albuterol Nebulize [Duoneb 0.5 mg-3 mg/3 ml Soln] 3 ml INHALATION RT-QID 30 Days #300 ml 06/24/22 Acetaminophen [Tylenol Extra Strength] 1,000 mg PO Q4H PRN 02/28/23 Budesonide-Formot 160-4.5 Mcg [Symbicort 160-4.5 Mcg Inhaler] 2 puff INHALATION BID 02/28/23 Diclofenac Sodium [Aspercreme Arthritis Pain] 1 applic TOPICAL DAILY 02/28/23 Gabapentin [Neurontin] 300 mg PO TID 02/28/23 HYDROcodone/APAP 5-325MG [[place] 5-325] 1 tab PO Q4HR PRN 02/28/23 Sennosides/Docusate Sodium [Senna Plus 8.6-50 mg Softgel] 1 each PO BID PRN 02/28/23 Controlled Substance Measures - Controlled Substance Measures Is patient prescribed a controlled substance at discharge?: No
== END ==
LOC: PNWHC3 10:58
PROVIDERS: ATTEND Specialist
DX: M51.34 Other intervertebral disc degeneration, thoracic region (principal); M47.814 Spondylosis without myelopathy or radiculopathy, thoracic region; G89.29 Other chronic pain; F17.200 Nicotine dependence, unspecified, uncomplicated; Z88.2 Allergy status to sulfonamides
CPT/HCPCS: 99211

== ENCOUNTER → 2023-06-27 | Outpatient (CLI) | payer OTHER ==
--- NOTE | 2023-06-27 18:46 | CT ---
EXAMINATION TYPE: CT chest w con DATE OF EXAM: 06/27/2023 COMPARISON: 08/16/2022 and PET/CT 03/17/2023 HISTORY: Back pain, lung Ca. CT DLP: 340.8 mGycm Automated exposure control for dose reduction was used. CONTRAST: CT scan of the chest is performed with IV Contrast, patient injected with 100 cc mL of Isovue 300. FINDINGS: LUNGS: Again noted is circumferential pleural thickening throughout the right hemithorax with associa ni volume loss. When compared to the prior study pleural thickening is increased to 13 mm right uppe r lobe medially versus 8 mm previously. Also pleural-based mass measuring 2.1 cm x 1.9 cm versus 2.4 x 1.8 cm previously this below the level of the mariano medially. There is increased parenchymal opaci ty right perihilar region as well as the right lower lobe internal foci of calcification. There is po stoperative changes left apical region with focal density seen in internal increased density. There i s hyperinflation of the left lung. MEDIASTINUM: Subcarinal adenopathy measures 1.6 cm versus 1.1 cm previously. No additional adenopathy greater than 1 cm seen at this time. Thoracic aorta is of normal caliber. The heart is not enlarged. No evidence of pulmonary embolism. UPPER ABDOMEN: Stable left adrenal adenoma. OTHER: No evidence for bony destructive lesion within the [id number]. IMPRESSION: 1. There is increased circumferential pleural thickening throughout the right hemithorax with increa sing pleural-parenchymal infiltrate or opacity right perihilar and right lower lobe regions could ref lect underlying pneumonic infiltrate and/or posttreatment change. Pleural thickening may reflect recu rrent or residual disease as was suggested on recent PET/CT. 2. No evidence for bony lesion significant degenerative change. 3. Posttreatment changes left apical region as well.
== END | disposition home or self-care (01) ==
LOC: RADCTMAIN 17:55
PROVIDERS: ATTEND Internal Medicine Hematology & Oncology
DX: C34.31 Malignant neoplasm of lower lobe, right bronchus or lung (principal)
CPT/HCPCS: 71260; Q9967

== ENCOUNTER → 2023-06-28 | Outpatient (CLI) | payer OTHER ==
--- NOTE | 2023-06-28 10:22 | MR ---
EXAMINATION TYPE: MR thoracic spine wo/w con DATE OF EXAM: 06/28/2023 9:24 AM COMPARISON: CT 829.3, PET/CT 03/27/2023 INDICATION: Patient age:Female; 58 years old; Reason for study: C34.31 LUNG CANCER. Mid back pain TECHNIQUE: Multi planar, multi sequence imaging was performed utilizing: T1-weighted, short-tau inver jake recovery and T2-weighted of the thoracic spine. The patient was not given Gadolinium. IV Contrast: 7.5 cc Gadavist FINDINGS: Alignment: There is mild scoliosis changes with the spinal cord shifted to the right aspect of the sp inal column. Vertebral bodies have preserved heights. Spinal cord: Spinal cord is within normal limits for signal. Discs: Intervertebral disc signal is maintained. No evidence of significant spinal canal or neural fo raminal stenosis. There is no evidence of extradural defects or central spinal canal narrowing at any thoracic vertebral body level Osseous structures: No abnormal bony edema on inversion recovery sequences. Multilevel osteophyte for mation and facet joint arthropathy. Scattered disc space narrowing. There is a high T2 cyst near the medial aspect of the right lung near the base measuring 2.0 x 1.3 cm . This corresponds with prior CT. And likely represents a loculated pleural effusion. There is postco ntrast enhancement around the pleural space on the right. IMPRESSION: 1. No evidence for significant spinal canal or neural foraminal stenosis. Cord signal is maintained. 2. Enhancing pleural space fluid collection as seen on prior CT suggestive of superimposed infection possibly empyema. No evidence for osteolytic myelitis or discitis.
== END | disposition home or self-care (01) ==
LOC: RADMRIMAIN 08:15
PROVIDERS: ATTEND Internal Medicine Hematology & Oncology
DX: C34.31 Malignant neoplasm of lower lobe, right bronchus or lung (principal)
CPT/HCPCS: 72157; A9585

== ENCOUNTER 2023-08-17 06:10 | Day surgery (SDC) | payer OTHER ==
[~2023-08-17 06:10] MED LIST changes: +DEXAMETHASONE SOD PHOSPHATE 4 MG/ML 1 ML VIAL IV ONE; +LIDOCAINE 1% (10MG/ML) FOR IV START INTRADERMA PRN; +ONDANSETRON 4 MG/2 ML VIAL IVP ONE
[2023-08-17] MEDS ORDERED: fentaNYL (PF) 50 MCG/ML 2 ML AMP IV PRN (07:00)
[2023-08-17] MEDS ORDERED: MIDAZOLAM 2 MG/2 ML VIAL IV PRN (07:00)
[2023-08-17] MEDS ORDERED: fentaNYL (PF) 50 MCG/ML 2 ML AMP IVP ONE (07:15)
[2023-08-17] MEDS ORDERED: ROPIVACAINE 5 MG/ML 30 ML VIAL ONE (07:39)
[2023-08-17] MEDS ORDERED: SODIUM CHLORIDE 0.9% (PF) 10 ML VIAL ONE (07:39)
[2023-08-17] MEDS ORDERED: DEXAMETHASONE SOD PHOSPHATE 4 MG/ML 1 ML VIAL ONE (07:39)
[2023-08-17] MEDS ORDERED: GLYCOPYRROLATE 0.2 MG/ML 2 ML VIAL ONE (07:39)
[2023-08-17] MEDS ORDERED: ROCURONIUM 10 MG/ML (5 ML VIAL) IV ONE (07:39)
[2023-08-17] MEDS ORDERED: PHENYLEPHRINE-0.9% NACL SYG 1,000 MCG/10 ML SYRINGE ONE (07:39)
[2023-08-17] MEDS ORDERED: PROPOFOL 10 MG/ML 20 ML VIAL IV ONE (07:39)
[2023-08-17] MEDS ORDERED: MIDAZOLAM 2 MG/2 ML VIAL ONE (07:39)
[2023-08-17] MEDS ORDERED: fentaNYL (PF) 50 MCG/ML 2 ML AMP ONE (07:39)
[2023-08-17] MEDS ORDERED: NEOSTIGMINE 1 MG/ML 10 ML VIAL ONE (07:39)
[2023-08-17] MEDS ORDERED: SUCCINYLCHOLINE CHLORIDE 200 MG/10 ML VIAL IV ONE (07:39)
[2023-08-17] MEDS ORDERED: LIDOCAINE 1% INJ 10MG/ML (20 ML MDV) ONE (07:39)
--- NOTE | 2023-08-17 08:15 | P.ANPRN ---
Procedure Note - Anesthesia - Nerve Block Performed Right Erector Spinae Single Date of Procedure: 08/17/23 Procedure Start Time: 07:14 Procedure Stop Time: :22 Location of Patient: PreOp Indication: Acute Post-Operative Pain, Requested by Surgeon (Dr Asher Em) Sedation Type: Sedate with meaningful contact maintained Preparation: Sterile Prep Position: Prone Catheter: None Needle Types: Pajunk Needle Gauge: 20 Ultrasound used to visualize needle placement: Yes Ultrasound used to observe medication spread: Yes Injectate: 0.5% Ropivacaine (see comment for volume) (20 mL plus Decadron 4 mg)
[2023-08-17] MEDS ORDERED: LACTATED RINGERS 1,000 ML IV ONE (08:34)
[2023-08-17] MEDS ORDERED: BUPIVACAINE (PF) 0.5% 30 ML VIAL SQ ONE ×2 (08:47)
--- NOTE | 2023-08-17 09:31 | P.OP ---
Date of Procedure: 08/17/23 Preoperative Diagnosis: Hx of bilateral adenocarcinoma Postoperative Diagnosis: Same Procedure(s) Performed: 1. Right mini thoracotomy with pleural biopsy 2. Intercostal nerve block - 1 level Surgeon: Asher Em Manager [employer] Systems #1: Cricket Briceño Estimated Blood Loss (ml): 25 Pathology: other (right pleura) Condition: stable Disposition: PACU Indications for Procedure: This patient is a 58 year-old female with a history of bilateral adenocarcinoma resection back in 2019. She had a routine screening PET/CT back in February of this year that revealed right sided pleural thickening with FDG avidity. A repeat CT scan in may confirmed these findings. The patient now requires right sided pleural biopsy to rule out recurrent metastatic disease. Operative Findings: Parietal pleura biopsied. Entry into the chest cavity with visualization with a thorascope revealed no evidence of overt metastatic disease but view was limited. Description of Procedure: The patient underwent erector spinae block in the pre-operative suite. She was brought back to the operating room and placed in the supine position. She was intubated with a single lumen tube and general anesthesia was induced. She was positioned in the left lateral decubitus position and her right chest was prepped and draped in the usual sterile fashion. I made a 2inch incision in the 5th intercostal space anterior axillary line and carried it down using electrocaurtery. The intercostal pleura was entered using a 15 blade and multiple biopsies were taken. I was able to visualize the lung and insert a 10mm thorascope. There was no overt sign of metastatic disease on the lung and visceral pleura appeared normal. Additional biopsies were taken and 1% marcaine was injected into the intercostal space. A 19F wild was placed in the right chest cavity and the incision was closed in layers. The patient was extubated at the end of the procedure.
[2023-08-17] MEDS: HYDROmorphone 0.5 MG/0.5 ML SYRINGE IVP PRN ×2 (09:50→10:02)
[2023-08-17] MEDS ORDERED: METOCLOPRAMIDE 5 MG/ML 2 ML VIAL IVP PRN (10:42)
[2023-08-17] MEDS ORDERED: bisacodyL 10 MG SUPP RECTAL PRN (10:42)
[2023-08-17] MEDS ORDERED: IPRATROPIUM-ALBUTEROL 3 ML NEB IH PRN (10:42)
[2023-08-17] MEDS ORDERED: SENNOSIDES-DOCUSATE SODIUM 1 EACH TAB PO PRN (10:42)
[2023-08-17] MEDS ORDERED: ONDANSETRON 4 MG/2 ML VIAL IVP PRN (10:42)
--- NOTE | 2023-08-17 10:52 | XR ---
EXAMINATION TYPE: XR chest 1V portable DATE OF EXAM: 08/17/2023 10:00 AM CLINICAL INDICATION:Female, 58 years old with history of Status post right pleural biopsy; [facility] COMPARISON: Chest radiographs from the left lung is relatively clear. 06/21/2022 TECHNIQUE: XR chest 1V portable Frontal view of the chest. FINDINGS/IMPRESSION: Interval increase in right pleural effusion with associated atelectasis. Superimposed airspace diseas e not entirely excluded. No evidence of pneumothorax.
[2023-08-17] MEDS: IBUPROFEN 600 MG TAB PO PRN ×2 (11:15→17:24)
[2023-08-17] MEDS: DEXTROSE 5%-0.45% NACL 1,000 ML IV SCH (11:21)
[2023-08-17] MEDS: HYDROcodone/APAP 7.5-325MG 1 EACH TAB PO SCH ×3 (12:38→23:57)
[2023-08-17] MEDS: IPRATROPIUM-ALBUTEROL 3 ML NEB IH SCH ×3 (15:21→21:18)
[2023-08-17] MEDS: GABAPENTIN 300 MG CAP PO SCH ×2 (17:24→21:52)
[2023-08-17] MEDS: HEPARIN SODIUM,PORCINE 5,000 UNIT/ML 1 ML VIAL SQ SCH ×2 (17:25→23:57)
[2023-08-17] MEDS: SYMBICORT 160-4.5 MCG INHALER INHALATION SCH (21:18)
[2023-08-17] MEDS: PANTOPRAZOLE 40 MG TABLET PO SCH (21:59)
[2023-08-17] MEDS: ACETAMINOPHEN TAB 500 MG TAB PO PRN (22:00)
[2023-08-18] MEDS: IBUPROFEN 600 MG TAB PO PRN ×2 (03:39→09:44)
[2023-08-18 03:52] VITALS: TEMP 98.2
[2023-08-18] MEDS: HYDROcodone/APAP 7.5-325MG 1 EACH TAB PO SCH ×2 (06:25→11:29)
[2023-08-18] MEDS: PANTOPRAZOLE 40 MG TABLET PO SCH (06:26)
[2023-08-18] MEDS: ACETAMINOPHEN TAB 500 MG TAB PO PRN (08:43)
[2023-08-18] MEDS: GABAPENTIN 300 MG CAP PO SCH (08:43)
--- NOTE | 2023-08-18 08:46 | XR ---
EXAMINATION TYPE: XR chest 1V DATE OF EXAM: 08/18/2023 HISTORY: Shortness of breath. COMPARISON: 08/17/2023 TECHNIQUE: Single view of the chest is submitted. FINDINGS: Demonstrated are scattered senescent parenchymal change. Stable appearance of the chest with right-sided pleural effusion as well as patchy right perihilar an d right basilar infiltrate and/or atelectasis. Right basilar chest tube noted. The left lung is clear . The heart is stable. Hilar and mediastinal structures are within normal limits. Degenerative changes are seen of the dorsal spine. IMPRESSION: 1. Stable chest
[2023-08-18 08:49] VITALS: BP 108/56; RESP 16
[2023-08-18] MEDS ORDERED: APIXABAN 5 MG TAB PO SCH (09:00)
[2023-08-18] MEDS ORDERED: LORATADINE 10 MG TAB PO SCH (09:00)
[2023-08-18 09:18] LABS: Basophils % (A) 0 %; Eosinophils % (A) 0 %; HCT 40.6 % (34.0-46.0); HGB 12.7 gm/dL (11.4-16.0); Lymphocytes % (A) 22 %; MCH 30.2 pg (25.0-35.0); MCHC 31.2 g/dL (31.0-37.0); MCV 96.6 fL (80.0-100.0); Mean Platelet Volume 8.6; Monocytes # (A) 0.8 k/uL (0-1.0); Monocytes % (A) 6 %; Neutrophils # (A) 9.7 k/uL (1.3-7.7); Neutrophils % (A) 71 %; Platelet Count 291 k/uL (150-450); RBC 4.21 m/uL (3.80-5.40); RDW 13.1 % (11.5-15.5); WBC 13.8 k/uL (3.8-10.6)
[2023-08-18 09:20] LABS: African American GFR (CKD) >90 (>60 ml/min/1.73 sqM); Anion Gap 8 mmol/L; Blood Urea Nitrogen 18 mg/dL (7-17); Calcium 9.1 mg/dL (8.4-10.2); Carbon Dioxide 28 mmol/L (22-30); Chloride 101 mmol/L (98-107); Glucose 163 mg/dL (74-99); Non-African American GFR(CKD) >90 (>60 ml/min/1.73 sqM); Potassium 4.1 mmol/L (3.5-5.1); Sodium 137 mmol/L (137-145)
[2023-08-18] MEDS: IPRATROPIUM-ALBUTEROL 3 ML NEB IH SCH (09:47)
[2023-08-18] MEDS: SYMBICORT 160-4.5 MCG INHALER INHALATION SCH (09:47)
[2023-08-18 10:19] VITALS: PULSE 84
--- NOTE | 2023-08-18 11:16 | P.DS ---
Providers Expected date of discharge: 08/18/23 Attending physician: Asher Em MD Consults: 08/17/23 10:42 Consult Physician Routine Consulting Provider: Harrison Adams Consult Reason/Comments: Pulmonary management Do you want consulting provider notified?: Yes Primary care physician: [facility] Course: FINAL DIAGNOSIS: History of bilateral lung adenocarcinoma History of pulmonary embolus, on Eliquis for anticoagulation on an outpatient basis Chronic pain to her right chest and back Stage III/stage IV COPD Gastroesophageal reflux disease Remote history of tobacco dependence, quit smoking in 2018 PRINCIPAL PROCEDURE: 1. Right mini thoracotomy with pleural biopsy 2. Intercostal nerve block 1 level HISTORY OF PRESENT ILLNESS: This is a 58-year-old female patient who follows on an outpatient basis with Dr. Harrison Adams for her pulmonary care. In July 2019, the patient has had a sinus infection, a chest x-ray was ordered by her primary care physician which revealed a lung nodule. The patient underwent further workup which revealed bilateral lung nodules and she underwent robotic- assisted left upper lobe wedge resection of one nodule in October 2019. She was diagnosed with lung cancer at that time with the lymph nodes showing to be negative. Subsequently she underwent a robotically assisted right-sided wedge resection with lymph node dissection with the lymph nodes being negative at that time in February 2021. She is also status post chemotherapy with cisplatin and alimta, and immunotherapy with Ketruda. Since her lung surgeries the patient has been undergoing surveillance PET/CTs scans, and in February 2023 her PET/computed tomography scan revealed an increased FDG activity especially along the right pleura compared to her PET/CT scan 6 months prior. For further evaluation she underwent a computed tomography scan of her chest with contrast on 06/27/2023 which showed an increased in circumferential pleural thickening throughout the right hemithorax with increasing pleural parenchymal infiltrate or capacity right perihilar and right lower lobe regions which could reflect underlying pneumonic infiltrate and/or posttreatment change, pleural thickening may reflect recurrent residual disease as was suggested on her recent PET/CT, no evidence of bony lesion significant degenerative change, posttreatment changes left apical region. It also demonstrated enlarged station 7 lymph node. The patient has also had complaints of chronic pain related to her right-sided surgery. She states that at first the right chest was numb, but after 3 or 4 months the numbing wore off and she had constant pain in her back and right side. Subsequently, due to the findings on the above-mentioned studies and the patient's symptoms she was referred to Dr. Em from cardiothoracic surgery for further evaluation and treatment recommendations. Dr. Em met with the patient, treatment options were discussed including right pleural biopsy, risks and benefits of the procedure were discussed and knowing and understanding the risks the patient wished to proceed with the surgical option. HOSPITAL COURSE: On 08/17/2023 the patient was brought to the hospital, and after obtaining consent was taken to the preoperative area with the patient was prepared in the usual fashion and subsequently taken to the operating room where Dr. Asher Em performed a right mini thoracotomy with pleural biopsy and intercostal nerve block 1 level. Upon completion of the surgery the patient was extubated and taken to the recovery room for further monitoring. She was eventually admitted to the third floor cardiac stepdown unit for further recovery and hemodynamic monitoring. Her right pleural chest tube was removed on postoperative day #1, her oxygen was titrated off, she was tolerating an oral diet, her pain was well-controlled and she was ready to be discharged home on postoperative day #1. She has received written and verbal instructions reg arding her medications, activity restrictions, signs and symptoms requiring physician notification and her follow-up appointment. Plan - Discharge Summary Discharge Rx Participant: No New Discharge Prescriptions: Continue Albuterol Inhaler [Ventolin Hfa Inhaler] 1 - 2 puff INHALATION Q4H PRN PRN Reason: Shortness Of Breath Omeprazole Magnesium [PriLOSEC OTC] 20 mg PO BID Cetirizine HCl [Zyrtec] 10 mg PO DAILY Ipratropium-Albuterol Nebulize [Duoneb 0.5 mg-3 mg/3 ml Soln] 3 ml INHALATION RT-QID 30 Days #300 ml Apixaban [Eliquis] 5 mg PO BID 30 Days #60 tab Budesonide-Formot 160-4.5 Mcg [Symbicort 160-4.5 Mcg Inhaler] 2 puff INHALATION BID fentaNYL 25MCG/HR PATCH [Duragesic 25MCG/HR] 25 mcg TRANSDERM Q72H Ibuprofen [Motrin Ib] 600 mg PO Q5H PRN PRN Reason: Pain Gabapentin [Neurontin] 300 mg PO TID Sennosides/Docusate Sodium [Senna Plus 8.6-50 mg Softgel] 1 each PO BID PRN PRN Reason: Constipation Acetaminophen [Tylenol Extra Strength] 1,000 mg PO Q4H PRN PRN Reason: Pain Lidocaine 5% Patch [Lidoderm 5% Patch] 1 patch MISCELLANE DAILY PRN PRN Reason: Pain HYDROcodone/APAP 7.5-325MG [[place] 7.5-325] 1 tab PO Q6H Discharge Medication List Albuterol Inhaler [Ventolin Hfa Inhaler] 1 - 2 puff INHALATION Q4H PRN 09/17/19 [History] Cetirizine HCl [Zyrtec] 10 mg PO DAILY 06/21/22 [History] Ibuprofen [Motrin Ib] 600 mg PO Q5H PRN 06/21/22 [History] Omeprazole Magnesium [PriLOSEC OTC] 20 mg PO BID 06/21/22 [History] Apixaban [Eliquis] 5 mg PO BID 30 Days #60 tab 06/24/22 [Rx] Ipratropium-Albuterol Nebulize [Duoneb 0.5 mg-3 mg/3 ml Soln] 3 ml INHALATION RT-QID 30 Days #300 ml 06/24/22 [Rx] Acetaminophen [Tylenol Extra Strength] 1,000 mg PO Q4H PRN 02/28/23 [History] Budesonide-Formot 160-4.5 Mcg [Symbicort 160-4.5 Mcg Inhaler] 2 puff INHALATION BID 02/28/23 [History] Gabapentin [Neurontin] 300 mg PO TID 02/28/23 [History] Sennosides/Docusate Sodium [Senna Plus 8.6-50 mg Softgel] 1 each PO BID PRN 02/28/23 [History] HYDROcodone/APAP 7.5-325MG [[place] 7.5-325] 1 tab PO Q6H 08/15/23 [History] Lidocaine 5% Patch [Lidoderm 5% Patch] 1 patch MISCELLANE DAILY PRN 08/15/23 [History] fentaNYL 25MCG/HR PATCH [Duragesic 25MCG/HR] 25 mcg TRANSDERM Q72H 08/15/23 [History] Follow up Appointment(s)/Referral(s): Rao Foster MD [Primary Care Provider] - As Needed Prince Castillo MD [STAFF PHYSICIAN] - As Needed Asher Em MD [STAFF PHYSICIAN] - 08/23/23 9:15 am Harrison Adams DO [Doctor of Osteopathic Medicine] - 08/23/23 8:30 am Activity/Diet/Wound Care/Special Instructions: DISCHARGE INSTRUCTIONS: 1. No driving for 2 weeks, or until physician gives their ok. 2. No lifting, pushing, or pulling more than 10 pounds for 2 weeks. The physician will advise of any restriction changes. 3. Continue pain control per as needed orders. Alternate acetaminophen (Tylenol) and ibuprofen (Motrin/Advil) for pain. 4. Continue with incentive spirometry and splinting until otherwise directed by the physician. 5. Leave chest tube dressing for 48 hours. After that, remove all dressings and shower daily. 6. Routine incision care. No powders, lotions, ointments on incisions. 7. Please call surgeon/CAFE OPERATOR for temp greater than 101 F or purulent drainage from incisions. 8. Smoking cessation counseling and program information provided. Quitting smoking is the most important step you can take to improve your health. For additional information and assistance to quit smoking, please call the [place] tobacco quit line (9-276-BAYL-NOW/ ) or online: [email or web address] Discharge Disposition: HOME SELF-CARE
[2023-08-18] MEDS: DEXTROSE 5%-0.45% NACL 1,000 ML IV SCH (11:21)
== END 2023-08-18 11:51 | disposition home or self-care (01) ==
LOC: OR 06:10 → EDSTATUS 07:30 → 3SCARD 09:04 → OR 08-18 11:51
PROVIDERS: ATTEND Thoracic Surgery (Cardiothoracic Vascular Surgery)
DX: C34.91 Malignant neoplasm of unspecified part of right bronchus or lung (principal); J90 Pleural effusion, not elsewhere classified; G89.29 Other chronic pain; J44.9 Chronic obstructive pulmonary disease, unspecified; K21.9 Gastro-esophageal reflux disease without esophagitis; Z79.01 Long term (current) use of anticoagulants; Z86.711 Personal history of pulmonary embolism; Z87.891 Personal history of nicotine dependence
CPT/HCPCS: 94640 ×4; 94760; 64999; 88305; 80048; 85025; 88342; 88341; 71045 ×2; 32098; C1729; C1763; J2250; J0330; J1644; J1100; J2710; J2405; J2001; J3010; J2795; J2704; J1170; J2371; J0665

== ENCOUNTER → 2023-09-07 | Outpatient (CLI) | payer OTHER ==
--- NOTE | 2023-09-08 07:41 | PE ---
EXAMINATION TYPE: PET CT fusion skull to thigh DATE OF EXAM: 09/07/2023 CLINICAL INDICATION:Female, 58 years old with history of C34.31 Lung CA; TECHNIQUE: Following the intravenous administration of 11.5 mCi of F-18 FDG, whole body images are performed from the skull base to the midthigh. Images are reviewed on the computer in the coronal, a xial, and sagittal planes. Reconstructed rotating images are created on independent workstation and reviewed on the computer. A non-contrast CT is performed in conjunction with the PET scan. Glucose level 95 mg/dL CT DLP: 442 mGycm, Automated exposure control for dose reduction was used. COMPARISON: CT 06/27/2023, PET/CT 03/17/2027, FINDINGS: Mediastinal SUV mean is 2.5. Hepatic parenchyma SUV mean is 2.9. SKULL BASE AND NECK: FDG activity at the level of the larynx is no longer visualized and felt to be physiologic on prior e xam. CHEST, MEDIASTINUM, AND HILAR REGION: There is progression of disease with increasing scattered foci (greater than 15) of abnormal FDG acti vity along the pleura with thickening, which is confluent and some areas and has increased compared t o prior example includes: * New area near the fissure max SUV 12.1 * The medial right upper lung max SUV 10.1, previously 3.1 anterior right lower lung max SUV 7, prev iously 5.0. * Subcarinal lymph node max SUV 9.9, previously 2.0. Abnormal FDG activity tracts along the subcutaneous tissues extending towards the skin near the left chest wall max SUV 7.6, previously not visualized. Somewhat linear in morphology and may have represe nted prior tract of surgery axis. ABDOMEN AND PELVIS: No suspicious FDG activity. OSSEOUS STRUCTURES: Abnormal FDG uptake within osseous structures. Examples include: * Right rib 10 and max SUV 5.3. * Right rib [address]: Adenomatous hypertrophy changes of the adrenal glands bilaterally left greater than right. Scattered clonic diverticulosis. Appendix is normal. Left posterior lower neck muscle strain with mil d FDG activity. Posterior neck/left shoulder muscle strain IMPRESSION: 1. Progression of disease throughout the pleural space on the right with a few scattered osseous met astatic foci also present. Additionally there is new FDG avid subcarinal lymph node and FDG activity tracking along a linear tract towards the skin surface which could represent surgical access tract. 2. FDG activity at the level of vocal cords has resolved and was physiologic on prior
== END | disposition home or self-care (01) ==
LOC: RADPETMAIN 09:45
PROVIDERS: ATTEND Internal Medicine Hematology & Oncology
DX: C34.31 Malignant neoplasm of lower lobe, right bronchus or lung (principal); C79.51 Secondary malignant neoplasm of bone
CPT/HCPCS: 78815; A9552

== ENCOUNTER 2024-01-05 10:47 | Inpatient (IN) | payer OTHER ==
--- NOTE | 2024-01-05 11:26 | ED ---
General Adult HPI - General Chief complaint: Shortness of Breath Stated complaint: SOB Time Seen by Provider: 01/05/24 11:01 Source: patient, EMS, RN notes reviewed Mode of arrival: EMS Limitations: no limitations - History of Present Illness Initial comments: Patient is a pleasant 58-year-old female presenting to the emergency department with difficulty breathing. Onset of symptoms was around a month ago. Symptoms worsened last night. No fever. Patient does have cough with productive green sputum. Patient does have history of lung cancer. Patient recently finished chemotherapy and had a PET scan done. Patient unclear of the next step with treatment. No calf pain or swelling. - Related Data Home Medications Medication Instructions Recorded Confirmed Albuterol Inhaler [Ventolin Hfa 1 - 2 puff INHALATION Q4H PRN 09/17/19 08/17/23 Inhaler] Cetirizine HCl [Zyrtec] 10 mg PO DAILY 06/21/22 08/17/23 Ibuprofen [Motrin Ib] 600 mg PO Q5H PRN 06/21/22 08/17/23 Omeprazole Magnesium [PriLOSEC OTC] 20 mg PO BID 06/21/22 08/17/23 Acetaminophen [Tylenol Extra 1,000 mg PO Q4H PRN 02/28/23 08/17/23 Strength] Budesonide-Formot 160-4.5 Mcg 2 puff INHALATION BID 02/28/23 08/17/23 [Symbicort 160-4.5 Mcg Inhaler] Gabapentin [Neurontin] 300 mg PO TID 02/28/23 08/17/23 Sennosides/Docusate Sodium [Senna 1 each PO BID PRN 02/28/23 08/17/23 Plus 8.6-50 mg Softgel] HYDROcodone/APAP 7.5-325MG [[place] 1 tab PO Q6H 08/15/23 08/17/23 7.5-325] Lidocaine 5% Patch [Lidoderm 5% 1 patch MISCELLANE DAILY PRN 08/15/23 08/17/23 Patch] fentaNYL 25MCG/HR PATCH [Duragesic 25 mcg TRANSDERM Q72H 08/15/23 08/17/23 25MCG/HR] Previous Rx's Medication Instructions Recorded Apixaban [Eliquis] 5 mg PO BID 30 Days #60 tab 06/24/22 Ipratropium-Albuterol Nebulize 3 ml INHALATION RT-QID 30 Days 06/24/22 [Duoneb 0.5 mg-3 mg/3 ml Soln] #300 ml Allergies Allergy/AdvReac Type Severity Reaction Status Date / Time sulfamethoxazole Allergy Rash/Hives Verified 08/17/23 06:21 [From Bactrim] trimethoprim [From Bactrim] Allergy Rash/Hives Verified 08/17/23 06:21 Review of Systems ROS Statement: Those systems with pertinent positive or pertinent negative responses have been documented in the HPI. ROS Other: All systems not noted in ROS Statement are negative. Constitutional: Denies: fever, chills Eyes: Denies: eye pain ENT: Denies: ear pain Respiratory: Reports: as per HPI, cough Endocrine: Reports: fatigue Past Medical History Past Medical History: Cancer, COPD, GERD/Reflux, Pulmonary Embolus (PE) Additional Past Medical History / Comment(s): ovarian cyst, lung CA 2019 w/redge resect Upper Left lobe; pe 06/21/22 History of Any Multi-Drug Resistant Organisms: None Reported Past Surgical History: Orthopedic Surgery, Tonsillectomy Additional Past Surgical History / Comment(s): RT hand surgery. ectopic SX Past Anesthesia/Blood Transfusion Reactions: Motion Sickness Past Psychological History: No Psychological Hx Reported Smoking Status: Former smoker Past Alcohol Use History: None Reported Past Drug Use History: None Reported - Past Family History Father Family Medical History: Cancer Mother Family Medical History: Cancer, Deep Vein Thrombosis (DVT), Pulmonary Embolus General Exam Limitations: no limitations General appearance: alert, in no apparent distress Head exam: Present: normocephalic Eye exam: Present: normal appearance Neck exam: Present: normal inspection Respiratory exam: Present: wheezes, decreased breath sounds Cardiovascular Exam: Present: regular rate, normal rhythm GI/Abdominal exam: Present: soft. Absent: tenderness Extremities exam: Present: normal inspection. Absent: pedal edema, calf tenderness Neurological exam: Present: alert Psychiatric exam: Present: normal affect, normal mood Skin exam: Present: normal color Course Vital Signs 01/05/24 01/05/24 01/05/24 10:58 11:29 11:38 Temperature 98.2 F Pulse Rate 118 H 110 H 112 H Respiratory 18 Rate Blood Pressure 118/78 O2 Sat by Pulse 92 L Oximetry EKG Findings - EKG Results: EKG: interpreted by ERMD (Right axis.), sinus rhythm, normal QRS, normal ST/T EKG shows: tachycardia Medical Decision Making - Medical Decision Making Was pt. sent in by a medical professional or institution (MARY Cardoza, COLLECTION TEAM LEAD, urgent care, hospital, or jail...) When possible be specific @ -No Did you speak to anyone other than the patient for history (EMS, parent, family, police, friend...)? What history was obtained from this source @ -No Did you review nursing and triage notes (agree or disagree)? Why? @ -I reviewed and agree with nursing and triage notes Were old charts reviewed (outside hosp., previous admission, EMS record, old EKG, old radiological studies, urgent care reports/EKG's, jail records)? Report findings @ -Previous chest x-ray reviewed Differential Diagnosis (chest pain, altered mental status, abdominal pain women, abdominal pain men, vaginal bleeding, weakness, fever, dyspnea, syncope, hea dache, dizziness, GI bleed, back pain, seizure, CVA, palpatations, mental health, musculoskeletal)? @ -Differential Dyspnea: Coronary syndrome, arrhythmia, tamponade, asthma, COPD, pulmonary embolism, pneumonia, pneumothorax, pulmonary effusion, anaphylaxis, diabetic ketoacidosis, flailed chest, pulmonary contusion, diaphragmatic rupture, anemia, neuromuscular, this is not meant to be an all-inclusive list. EKG interpreted by me (3pts min.). @ -As above X-rays interpreted by me (1pt min.). @ -Chest x-ray shows persistent opacity throughout the right lung thickening or pleural effusion. Mild increased patchy density left midlung base CT interpreted by me (1pt min.). @ -None done U/S interpreted by me (1pt. min.). @ -None done What testing was considered but not performed or refused? (CT, X-rays, U/S, labs)? Why? @ -None What meds were considered but not given or refused? Why? @ -None Did you discuss the management of the patient with other professionals (professionals i.e. MARY Cardoza, COLLECTION TEAM LEAD, lab, RT, psych nurse, foster care social worker, director business development, teacher, sustainability officer, counter caser)? Give summary @ -Sound physician, Dr. Mobley who will admit covering Dr. Gonzalez Was smoking cessation discussed for >3mins.? @ -No Was critical care preformed (if so, how long)? @ -31 min Were there social determinants of health that impacted care today? How? (Homelessness, low income, unemployed, alcoholism, drug addiction, transportation, low edu. Level, literacy, decrease access to med. care, group home, rehab)? @ -No Was there de-escalation of care discussed even if they declined (Discuss DNR or withdrawal of care, Hospice)? DNR status @ -No What co-morbidities impacted this encounter? (DM, HTN, Smoking, COPD, CAD, Cancer, CVA, ARF, Chemo, Hep., AIDS, mental health diagnosis, sleep apnea, morb id obesity)? @ -Underlying lung cancer Was patient admitted / discharged? Hospital course, mention meds given and route, prescriptions, significant lab abnormalities, going to OR and other pertinent info. @ -Patient reevaluated. Patient remains hypoxic on nasal cannula 89% as well as tachycardic with a rate of 112. Patient will be admitted. Questionable pneumonia. Blood culture lactic acid and IV antibiotics will all be ordered. There is concern for possible sepsis diagnosed at 12:39 PM. Pulmonary consult will be placed. Admission orders written for Undiagnosed new problem with uncertain prognosis? @ -No Drug Therapy requiring intensive monitoring for toxicity (Heparin, Nitro, Insu richie, Cardizem)? @ -No Were any procedures done? @ -No Diagnosis/symptom? @ -Pneumonia, sepsis Acute, or Chronic, or Acute on Chronic? @ -Acute, acute Uncomplicated (without systemic symptoms) or Complicated (systemic symptoms)? @ -Default Side effects of treatment? @ -No Exacerbation, Progression, or Severe Exacerbation? @ -No Poses a threat to life or bodily function? How? (Chest pain, [place], [place], pneumonia, PE, COPD, DKA, ARF, appy, cholecystitis, CVA, Diverticulitis, Homicidal, Suicidal, threat to staff... and all critical care pts) @ -No - Lab Data Result diagrams: 01/05/24 11:23 01/05/24 11:23 Lab Results 01/05/24 01/05/24 01/05/24 Range/Units 11:23 11:23 11:23 WBC 9.1 (3.8-10.6) k/uL RBC 4.39 (3.80-5.40) m/uL Hgb 13.3 (11.4-16.0) gm/dL Hct 41.9 (34.0-46.0) % MCV 95.4 (80.0-100.0) fL MCH 30.2 (25.0-35.0) pg MCHC 31.6 (31.0-37.0) g/dL RDW 15.1 (11.5-15.5) % Plt Count 250 (150-450) k/uL MPV 8.7 Neutrophils % 75 % Lymphocytes % 13 % Monocytes % 7 % Eosinophils % 2 % Basophils % 1 % Neutrophils # 6.9 (1.3-7.7) k/uL Lymphocytes # 1.2 (1.0-4.8) k/uL Monocytes # 0.7 (0-1.0) k/uL Eosinophils # 0.1 (0-0.7) k/uL Basophils # 0.1 (0-0.2) k/uL Hypochromasia Slight PT 10.9 (10.0-12.5) sec INR 1.0 (<1.2) APTT 28.4 (22.0-30.0) sec Sodium 138 (137-145) mmol/L Potassium 4.1 (3.5-5.1) mmol/L Chloride 105 (98-107) mmol/L Carbon Dioxide 25 (22-30) mmol/L Anion Gap 8 mmol/L BUN 17 (7-17) mg/dL Creatinine 0.62 (0.52-1.04) mg/dL Est GFR (CKD-EPI)AfAm >90 (>60 ml/min/1.73 sqM) Est GFR (CKD-EPI)NonAf >90 (>60 ml/min/1.73 sqM) Glucose 107 H (74-99) mg/dL Plasma Lactic Acid [place] (0.7-2.0) mmol/L Calcium 9.4 (8.4-10.2) mg/dL Magnesium 2.0 (1.6-2.3) mg/dL Total Bilirubin 0.8 (0.2-1.3) mg/dL AST 39 H (14-36) U/L ALT 21 (4-34) U/L Alkaline Phosphatase 172 H (38-126) U/L Total Protein 7.3 (6.3-8.2) g/dL Albumin 4.0 (3.5-5.0) g/dL Influenza Type A (PCR) (Not Detectd) Influenza Type B (PCR) (Not Detectd) RSV (PCR) (Not Detectd) SARS-CoV-2 (PCR) (Not Detectd) 01/05/24 01/05/24 Range/Units 11:23 11:36 WBC (3.8-10.6) k/uL RBC (3.80-5.40) m/uL Hgb (11.4-16.0) gm/dL Hct (34.0-46.0) % MCV (80.0-100.0) fL MCH (25.0-35.0) pg MCHC (31.0-37.0) g/dL RDW (11.5-15.5) % Plt Count (150-450) k/uL MPV Neutrophils % % Lymphocytes % % Monocytes % % Eosinophils % % Basophils % % Neutrophils # (1.3-7.7) k/uL Lymphocytes # (1.0-4.8) k/uL Monocytes # (0-1.0) k/uL Eosinophils # (0-0.7) k/uL Basophils # (0-0.2) k/uL Hypochromasia PT (10.0-12.5) sec INR (<1.2) APTT (22.0-30.0) sec Sodium (137-145) mmol/L Potassium (3.5-5.1) mmol/L Chloride (98-107) mmol/L Carbon Dioxide (22-30) mmol/L Anion Gap mmol/L BUN (7-17) mg/dL Creatinine (0.52-1.04) mg/dL Est GFR (CKD-EPI)AfAm (>60 ml/min/1.73 sqM) Est GFR (CKD-EPI)NonAf (>60 ml/min/1.73 sqM) Glucose (74-99) mg/dL Plasma Lactic Acid [place] 1.3 (0.7-2.0) mmol/L Calcium (8.4-10.2) mg/dL Magnesium (1.6-2.3) mg/dL Total Bilirubin (0.2-1.3) mg/dL AST (14-36) U/L ALT (4-34) U/L Alkaline Phosphatase (38-126) U/L Total Protein (6.3-8.2) g/dL Albumin (3.5-5.0) g/dL Influenza Type A (PCR) Not Detected (Not Detectd) Influenza Type B (PCR) Not Detected (Not Detectd) RSV (PCR) Not Detected (Not Detectd) SARS-CoV-2 (PCR) Not Detected (Not Detectd) Critical Care Time Critical Care Time: Yes Total Critical Care Time: 31 Disposition Clinical Impression: History of lung cancer, Acute exacerbation of chronic obstructive pulmonary disease, Pneumonia, Sepsis Disposition: ADMITTED IP TO THIS HOSP Is patient prescribed a controlled substance at d/c from ED?: No Time of Disposition: 12:41
[2024-01-05] MEDS: IPRATROPIUM-ALBUTEROL 3 ML NEB INHALATION STA (11:29)
[2024-01-05] MEDS: methylPREDNISolone SOD SUCCI 125 MG/2 ML VIAL IV STA (11:30)
[2024-01-05 11:48] LABS: Basophils # (A) 0.1 k/uL (0-0.2); Basophils % (A) 1 %; Eosinophils # (A) 0.1 k/uL (0-0.7); Eosinophils % (A) 2 %; HCT 41.9 % (34.0-46.0); HGB 13.3 gm/dL (11.4-16.0); Hypochromasia Slight; Lymphocytes # (A) 1.2 k/uL (1.0-4.8); Lymphocytes % (A) 13 %; MCH 30.2 pg (25.0-35.0); MCHC 31.6 g/dL (31.0-37.0); MCV 95.4 fL (80.0-100.0); Mean Platelet Volume 8.7; Monocytes # (A) 0.7 k/uL (0-1.0); Monocytes % (A) 7 %; Neutrophils # (A) 6.9 k/uL (1.3-7.7); Neutrophils % (A) 75 %; Platelet Count 250 k/uL (150-450); RBC 4.39 m/uL (3.80-5.40); RDW 15.1 % (11.5-15.5); WBC 9.1 k/uL (3.8-10.6)
[2024-01-05 11:57] LABS: ALT 21 U/L (4-34); AST 39 U/L (14-36); African American GFR (CKD) >90 (>60 ml/min/1.73 sqM); Alkaline Phosphatase 172 U/L (38-126); Anion Gap 8 mmol/L; Blood Urea Nitrogen 17 mg/dL (7-17); Calcium 9.4 mg/dL (8.4-10.2); Carbon Dioxide 25 mmol/L (22-30); Chloride 105 mmol/L (98-107); Glucose 107 mg/dL (74-99); Non-African American GFR(CKD) >90 (>60 ml/min/1.73 sqM); Potassium 4.1 mmol/L (3.5-5.1); Sodium 138 mmol/L (137-145); Total Bilirubin 0.8 mg/dL (0.2-1.3); Total Protein 7.3 g/dL (6.3-8.2)
--- NOTE | 2024-01-05 12:11 | XR ---
EXAMINATION TYPE: XR chest 2V DATE OF EXAM: 01/05/2024 COMPARISON: 08/18/2023 HISTORY: Shortness of breath TECHNIQUE: Frontal and lateral views of the chest are obtained. FINDINGS: Scattered senescent parenchymal changes noted. Hyperinflation compatible with COPD. Persistent pleural-parenchymal opacity throughout the right lung pleural thickening and/or pleural ef fusion. Mild increased patchy density left medial lung base. Heart size is stable. Mediastinal structures are stable and grossly unremarkable. No evidence for hilar prominence. Degenerative changes dorsal spine. IMPRESSION: 1. Persistent pleural-parenchymal opacity throughout the right lung pleural thickening and/or pleural effusion. Mild increased patchy density left medial lung base.
[2024-01-05 12:26] LABS: Partial Thromboplastin Time 28.4 sec (22.0-30.0); Prothrombin Time 10.9 sec (10.0-12.5)
[2024-01-05] MEDS ORDERED: IPRATROPIUM-ALBUTEROL 3 ML NEB INHALATION PRN (12:41)
[2024-01-05] MEDS ORDERED: PNEUMONIA PROTOCOL UTILIZED 1 EACH MISC PO PRN (12:41)
[2024-01-05] MEDS: HYDROcodone/APAP 10-325MG 1 EACH TAB PO PRN ×2 (13:11→19:41)
[2024-01-05] MEDS: AZITHROMYCIN 500 MG in SODIUM CHLORIDE 0.9% 250 ML IVPB STA (13:47)
--- NOTE | 2024-01-05 15:17 | P.CNPUL ---
History of Present Illness Consult date: 01/05/24 Requesting physician: Tonia Tatum Reason for consult: dyspnea Chief complaint: Shortness of breath, cough, congestion History of present illness: This is a very pleasant 58-year-old female patient with a known history of chronic obstructive pulmonary disease with FEV1 value 32% of predicted, 78-goby-pekw smoking history, pulmonary embolism anticoagulated with Eliquis. She also has a known history of lung cancer diagnosed in 2018 with wedge resection of the left upper lobe October 2019. In February 2021 she had a right lung resection as well. 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 She has been undergoing chemotherapy and her third treatment was November 28, 2023 however she was unable to tolerate that dose and it has been on hold since. A recent PET scan from December 28, 2023 revealed positive response to therapy with decreased in metabolic activity throughout the pleura and near the right seventh and 10th rib. She is scheduled to see Dr. Castillo on 01/09/2024 for follow-up. She presented here today with complaints of increasing shortness of breath, cough and congestion. She was having chest tightness. Palpitations. Her O2 saturation was 84% on room air. She has been having some green productive cough as well. Chest x-ray revealed persistent pleural-parenchymal opacity throughout the right lung pleural thickening and/or pleural effusion. Mild increased patchy density in the left medial lung base. White count 9.1. Hemoglobin 13.3. Sodium 138. Potassium 4.1. Bicarb 25. BUN 17. Creatinine 0.62. Glucose 107. Viral screen is negative. Seen today in the emergency department. She is currently sitting up on the stretcher. Awake and alert in no acute distress. She is dyspneic with conversation. Dyspneic with minimal exertion. She is maintaining O2 saturation in the 90s on 2 L/min per nasal cannula. Afebrile. Tachycardic in the 110s. Review of Systems REVIEW OF SYSTEMS: CONSTITUTIONAL: Denies any recent significant weight loss or weight gain. EYES: Denies change in vision. EARS, NOSE, MOUTH, THROAT: Denies headaches, denies sore throat. CARDIOVASCULAR: Positive for palpitations, no syncopal episodes. RESPIRATORY: Positive for shortness of breath, cough, congestion no hemoptysis. GASTROINTESTINAL: Denies change in appetite, denies abdominal pain GENITOURINARY: Denies hematuria, denies infections. MUSKULOSKELETAL: Denies pain, denies swelling. INTEGUMENTARY: Denies rash, denies eczema. NEUROLOGICAL: Denies recent memory loss, no recent seizure activity. PSYCHIATRIC: Denies anxiety, denies depression. HEMATOLOGIC/LYMPHATIC: Denies anemia, denies enlarged lymph nodes. Past Medical History Past Medical History: Cancer, COPD, GERD/Reflux, Pulmonary Embolus (PE) Additional Past Medical History / Comment(s): ovarian cyst, lung CA 2019 w/redge resect Upper Left lobe; pe 06/21/22 History of Any Multi-Drug Resistant Organisms: None Reported Past Surgical History: Orthopedic Surgery, Tonsillectomy Additional Past Surgical History / Comment(s): RT hand surgery. ectopic SX Past Anesthesia/Blood Transfusion Reactions: Motion Sickness Past Psychological History: No Psychological Hx Reported Smoking Status: Former smoker Past Alcohol Use History: None Reported Past Drug Use History: None Reported - Past Family History Father Family Medical History: Cancer Mother Family Medical History: Cancer, Deep Vein Thrombosis (DVT), Pulmonary Embolus Medications and Allergies Home Medications Medication Instructions Recorded Confirmed Type Albuterol Inhaler [Ventolin Hfa 2 puff INHALATION RT-Q6H PRN 09/17/19 01/05/24 History Inhaler] Cetirizine HCl [Zyrtec] 10 mg PO DAILY 06/21/22 01/05/24 History Ibuprofen [Motrin Ib] 600 mg PO Q5H PRN 06/21/22 01/05/24 History Omeprazole Magnesium [PriLOSEC OTC] 20 mg PO DAILY 06/21/22 01/05/24 History Apixaban [Eliquis] 5 mg PO BID 30 Days #60 tab 06/24/22 01/05/24 Rx Ipratropium-Albuterol Nebulize 3 ml INHALATION RT-QID 30 Days 06/24/22 01/05/24 Rx [Duoneb 0.5 mg-3 mg/3 ml Soln] #300 ml Budesonide-Formot 160-4.5 Mcg 2 puff INHALATION RT-BID 02/28/23 01/05/24 History [Symbicort 160-4.5 Mcg Inhaler] Gabapentin [Neurontin] 300 mg PO TID 02/28/23 01/05/24 History Sennosides/Docusate Sodium [Senna 1 cap PO BID PRN 02/28/23 01/05/24 History Plus 8.6-50 mg Softgel] fentaNYL 25MCG/HR PATCH [Duragesic 1 patch TRANSDERM Q72H 08/15/23 01/05/24 History 25MCG/HR] Acetaminophen [Tylenol 8 Hour] 1,300 mg PO Q5H PRN 01/05/24 01/05/24 History Folic Acid 1 mg PO DAILY 01/05/24 01/05/24 History HYDROcodone/APAP 10-325MG [[place] 1 tab PO Q6HR PRN 01/05/24 01/05/24 History 10-325] Lidocaine/Menthol [Asperflex Max 1 patch TRANSDERM DAILY 01/05/24 01/05/24 History 4%-1% Patch] Linaclotide [Linzess] 145 mcg PO DAILY PRN 01/05/24 01/05/24 History Ondansetron Odt [Zofran Odt] 8 mg PO Q6H PRN 01/05/24 01/05/24 History Allergies Allergy/AdvReac Type Severity Reaction Status Date / Time sulfamethoxazole Allergy Rash/Hives Verified 01/05/24 12:54 [From Bactrim] trimethoprim [From Bactrim] Allergy Rash/Hives Verified 01/05/24 12:54 Physical Exam Vitals: Vital Signs Temp Pulse Resp BP Pulse Ox 01/05/24 14:09 94 L 01/05/24 14:08 94 L 01/05/24 14:04 107 H 20 120/79 94 L 01/05/24 11:38 112 H 01/05/24 11:29 110 H 01/05/24 10:58 98.2 F 118 H 18 118/78 92 L Intake and Output 01/04/24 01/05/24 01/05/24 22:59 06:59 14:59 Other: Weight 67.132 kg GENERAL EXAM: Alert, very pleasant 58-year-old female on 2 L nasal cannula, fairly comfortable in no apparent distress. HEAD: Normocephalic. EYES: Normal reaction of pupils, equal size. NOSE: Clear with pink turbinates. THROAT: No erythema or exudates. NECK: No masses, no JVD. CHEST: No chest wall deformity. LUNGS: Equal air entry with bilateral scattered rhonchi more so on the right. CVS: S1 and S2 normal with no audible murmur, regular rhythm. Tachycardic. ABDOMEN: No hepatosplenomegaly, normal bowel sounds, no guarding or rigidity. SPINE: No scoliosis or deformity SKIN: No rashes CENTRAL NERVOUS SYSTEM: No focal deficits, tone is normal in all 4 extremities. EXTREMITIES: There is no peripheral edema. No clubbing, no cyanosis. Peripheral pulses are intact. Results - Laboratory Findings CBC and BMP: 01/05/24 11:23 01/05/24 11:23 PT/INR, D-dimer PT 10.9 sec (10.0-12.5) 01/05/24 11:23 INR 1.0 (<1.2) 01/05/24 11:23 Abnormal lab findings: Abnormal Labs 01/05/24 11:23 Glucose 107 H AST 39 H Alkaline Phosphatase 172 H - Diagnostic Findings Chest x-ray: image reviewed Assessment and Plan Assessment: Acute hypoxemic respiratory failure secondary to suspected postobstructive pneumonia, possible pleural effusion History of recurrent lung cancer, mini right thoracotomy with biopsy in July 2023 revealing invasive poorly differentiated non-small cell carcinoma con sistent with pulmonary adenocarcinoma. Last chemotherapy in October 2023, her third cycle however intolerant, currently on pause Lung cancer initially diagnosed in 2018 with a left upper lobe resection in 2019, right sided wedge resection in 2020 Former smoker, quit in 2019 Chronic obstructive pulmonary disease History of pulmonary embolism, anticoagulated with Eliquis Plan: The patient was seen and evaluated Chest x-ray, labs and medications reviewed Continue ceftriaxone and azithromycin Add DuoNeb inhalations, Symbicort, Solu-Medrol Titrate the FiO2 as tolerated Obtain a ultrasound of the right chest We will continue to follow and make further recommendations based on her clinical status I have personally seen and examined the patient, performed the documentation and the assessment and plan as written. Number of minutes spent on the visit: 20.
[2024-01-05] MEDS: IPRATROPIUM-ALBUTEROL 3 ML NEB INHALATION SCH ×2 (15:46→18:24)
[2024-01-05] MEDS ORDERED: ACETAMINOPHEN TAB 500 MG TAB PO PRN (16:17)
[2024-01-05] MEDS ORDERED: Linaclotide [Linzess] 145 MCG Capsule PO PRN (16:18)
[2024-01-05] MEDS ORDERED: bisacodyL 5 MG TABLET.DR PO PRN (16:18)
[2024-01-05] MEDS ORDERED: MELATONIN 5 MG TABLET PO PRN (16:18)
[2024-01-05] MEDS ORDERED: ACETAMINOPHEN TAB 325 MG TAB PO PRN (16:18)
[2024-01-05] MEDS ORDERED: ALBUTEROL NEBULIZED 2.5 MG/3 ML INHALATION PRN (16:18)
[2024-01-05] MEDS ORDERED: ONDANSETRON 4 MG/2 ML VIAL IVP PRN (16:18)
[2024-01-05] MEDS ORDERED: HYDROmorphone 0.5 MG/0.5 ML SYRINGE IVP PRN (16:19)
--- NOTE | 2024-01-05 16:33 | P.HPIM ---
History of Present Illness H&P Date: 01/05/24 Patient is a 58-year-old female COPD, lung cancer, GERD, pulmonary embolism who presented to the emergency department with complaints of shortness of breath. On arrival to the ER she underwent an extensive evaluation. Vitals were remarkable for tachycardia with a pulse of 118. Laboratory analysis consisted of CBC, coags, CMP all of which were unremarkable. Influenza A/B/RSV/COVID-19 t esting was negative. Chest x-ray was consistent with persistent pulmonary parenchymal opacity throughout the right lung. Patient seen and examined at bedside. She reports that last 5 days that she has had a cough productive of greenish sputum along with shortness of breath. Is slowly been getting worse. She has been compliant with her inhalers and nebulizer regimens. She also reports palpitations and chest tightness. Overnight last night she checked her O2 sat which was 84% on room air. She does not wear oxygen at baseline. She reports that she has been having issues with persistent tachycardia for the last several weeks and was scheduled to see cardiology next week. She reports that her shortness of breath is worse with activity. She typically has to sleep in a recliner at home due to shortness of breath. For her adenocarcinoma of the lung she is following with Dr. Castillo. Her last treatment was at the end of October and she was receiving both immuno and chemotherapy. She had an adverse reaction during her last treatment session resulting in flushing and tachycardia and was treated at [facility]. She states she also had an echocardiogram done recently at [facility] which per patient was normal. Chronic constipation which is unchanged. She denies any fevers at home. No other complaints currently. On record review patient had PET CT scan performed on 12/28/2023 which demonstrated positive response to therapy with decreased metabolic activity t hroughout the pleura near the right seventh and 10th rib. Vital signs reviewed General: nontoxic, no distress, appears at stated age Derm: warm, dry Eyes: EOMI, no lid lag, anicteric sclera, pupils equal round reactive to light ENT: Nose and ears atraumatic Cardiovascular: S1S2 reg, no murmur, no edema Lungs: Lungs bilaterally, 3 word conversational dyspnea, sternal Abdominal: soft, nontender to palpation, no guarding Ext: no gross muscle atrophy, no contractures Neuro: CN II-XII grossly intact, No focal neuro deficits Psych: Alert, oriented, appropriate affect Assessment/Plan: Acute hypoxic respiratory failure Acute exacerbation of COPD Purulent tracheobronchitis, possible postobstructive pneumonia 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 Pulmonary note reviewed patient undergo CT chest to assess for pleural effusion. -Fentanyl 25 mcg patch every 72 hours, gabapentin 300 mg 3 times daily, [place] 10 mg 1 tablet every 6 hours as needed for pain, Dilaudid 1.5 mg every 3 hours as needed for breakthrough pain -Zithromax 500 mg IV day #1, Rocephin 2 g IV piggyback day #1 Telemetry -Telemetry -Obtain recent echocardiogram done at [facility] Imaging: As per HPI Data Review: As per HPI The patient is admitted with an anticipated greater than 2 midnight stay for evaluation Acute exacerbation of COPD. DVT prophylaxis: Eliquis Anticipated discharge date: Pending Clinical Course Anticipated discharge place: Pending Clinical Course This dictation was prepared using [employer] voice recognition software. Though every attempt is made to correct errors during dictation some may still exist. Past Medical History Past Medical History: Cancer, COPD, GERD/Reflux, Pulmonary Embolus (PE) Additional Past Medical History / Comment(s): ovarian cyst, lung CA 2019 w/redge resect Upper Left lobe; pe 06/21/22 History of Any Multi-Drug Resistant Organisms: None Reported Past Surgical History: Orthopedic Surgery, Tonsillectomy Additional Past Surgical History / Comment(s): RT hand surgery. ectopic SX. Lung ressection of Right lower lobe and left upper lobe Past Anesthesia/Blood Transfusion Reactions: Motion Sickness Smoking Status: Former smoker - Past Family History Father Family Medical History: Cancer Mother Family Medical History: Cancer, Deep Vein Thrombosis (DVT), Pulmonary Embolus Medications and Allergies Home Medications Medication Instructions Recorded Confirmed Type Albuterol Inhaler [Ventolin Hfa 2 puff INHALATION RT-Q6H PRN 09/17/19 01/05/24 History Inhaler] Cetirizine HCl [Zyrtec] 10 mg PO DAILY 06/21/22 01/05/24 History Ibuprofen [Motrin Ib] 600 mg PO Q5H PRN 06/21/22 01/05/24 History Omeprazole Magnesium [PriLOSEC OTC] 20 mg PO DAILY 06/21/22 01/05/24 History Apixaban [Eliquis] 5 mg PO BID 30 Days #60 tab 06/24/22 01/05/24 Rx Ipratropium-Albuterol Nebulize 3 ml INHALATION RT-QID 30 Days 06/24/22 01/05/24 Rx [Duoneb 0.5 mg-3 mg/3 ml Soln] #300 ml Budesonide-Formot 160-4.5 Mcg 2 puff INHALATION RT-BID 02/28/23 01/05/24 History [Symbicort 160-4.5 Mcg Inhaler] Gabapentin [Neurontin] 300 mg PO TID 02/28/23 01/05/24 History Sennosides/Docusate Sodium [Senna 1 cap PO BID PRN 02/28/23 01/05/24 History Plus 8.6-50 mg Softgel] fentaNYL 25MCG/HR PATCH [Duragesic 1 patch TRANSDERM Q72H 08/15/23 01/05/24 History 25MCG/HR] Acetaminophen [Tylenol 8 Hour] 1,300 mg PO Q5H PRN 01/05/24 01/05/24 History Folic Acid 1 mg PO DAILY 01/05/24 01/05/24 History HYDROcodone/APAP 10-325MG [[place] 1 tab PO Q6HR PRN 01/05/24 01/05/24 History 10-325] Lidocaine/Menthol [Asperflex Max 1 patch TRANSDERM DAILY 01/05/24 01/05/24 History 4%-1% Patch] Linaclotide [Linzess] 145 mcg PO DAILY PRN 01/05/24 01/05/24 History Ondansetron Odt [Zofran Odt] 8 mg PO Q6H PRN 01/05/24 01/05/24 History Allergies Allergy/AdvReac Type Severity Reaction Status Date / Time sulfamethoxazole Allergy Rash/Hives Verified 01/05/24 12:54 [From Bactrim] trimethoprim [From Bactrim] Allergy Rash/Hives Verified 01/05/24 12:54 Physical Exam Osteopathic Statement: *. No significant issues noted on an osteopathic structural exam other than those noted in the History and Physical/Consult. Vitals: Vital Signs Temp Pulse Pulse Resp BP BP Pulse Ox 01/05/24 15:58 116 H 01/05/24 15:49 96 01/05/24 15:46 113 H 01/05/24 14:09 94 L 01/05/24 14:08 94 L 01/05/24 14:04 107 H 20 120/79 94 L 01/05/24 14:00 97.7 F 115 H 19 137/74 96 01/05/24 11:38 112 H 01/05/24 11:29 110 H 01/05/24 10:58 98.2 F 118 H 18 118/78 92 L Intake and Output 01/05/24 01/05/24 01/05/24 06:59 14:59 22:59 Other: Weight 67.132 kg 67.132 kg Results CBC & Chem 7: 01/05/24 11:23 01/05/24 11:23 Labs: Abnormal Lab Results - Last 24 Hours (Table) 01/05/24 Range/Units 11:23 Glucose 107 H (74-99) mg/dL AST 39 H (14-36) U/L Alkaline Phosphatase 172 H (38-126) U/L
[2024-01-05] MEDS: GABAPENTIN 300 MG CAP PO SCH (16:59)
[2024-01-05] MEDS: IBUPROFEN 600 MG TAB PO PRN (17:06)
--- NOTE | 2024-01-05 17:24 | US ---
EXAMINATION TYPE: US chest DATE OF EXAM: 01/05/2024 COMPARISON: Radiograph same day CLINICAL INDICATION: Female, 58 years old with history of Markings for thoracentesis by pulmonary sta ff; SOB TECHNIQUE: Targeted ultrasound of the posterior lower bilateral hemithoraces EXAM MEASUREMENTS: Right Pleural Effusion pocket size: no significant fluid pocket visualized at this time. Trace fluid noted. Left Pleural Effusion pocket size: no significant fluid pocket visualized at this time Right side NOT marked for possible thoracentesis outside the dept. Left side NOT marked for possible thoracentesis outside the dept. Pulmonologists are able to review the images in the patient?s EMR. IMPRESSIONS: Only trace fluid on the right seen while scanning the posterior lower hemithoraces.
[2024-01-05] MEDS: methylPREDNISolone SOD SUCCI 125 MG/2 ML VIAL IV SCH (17:41)
[2024-01-05] MEDS: SYMBICORT 160-4.5 MCG INHALER INHALATION SCH (18:23)
[2024-01-05] MEDS: guaiFENesin 600 MG TABLET.ER PO SCH (21:01)
[2024-01-05] MEDS: APIXABAN 5 MG TAB PO SCH (21:01)
[2024-01-06] MEDS: FOLIC ACID 1 MG TAB PO SCH (07:30)
[2024-01-06] MEDS: PANTOPRAZOLE 40 MG TABLET PO SCH (07:30)
[2024-01-06] MEDS: LORATADINE 10 MG TAB PO SCH (07:30)
--- NOTE | 2024-01-06 07:39 | XR ---
EXAMINATION TYPE: XR chest 2V DATE OF EXAM: 01/06/2024 COMPARISON: 01/05/2024 HISTORY: 58-year-old female pneumonia TECHNIQUE: Frontal and lateral views FINDINGS: Extensive pleural parenchymal opacities throughout the right hemithorax. Mild hazy density left lower lung also persists. Right heart margin obscured by adjacent pleural parenchymal opacity. Surgical ma terial at the right suprahilar region an right midlung. Surgical material also at the left apex. IMPRESSION: 1. Ongoing extensive pleural-parenchymal opacities within the right hemithorax. 2. Hazy density in the left lower lung is also similar. 3. Postsurgical change right suprahilar region, right midlung, and left apex.
[2024-01-06] MEDS ORDERED: LIDOCAINE TRANSDERM SCH (09:00)
[2024-01-06] MEDS ORDERED: MENTHOL TRANSDERM SCH (09:00)
[2024-01-06 09:39] LABS: HCT 38.7 % (37.2-46.3); HGB 12.3 g/dL (12.0-15.0); MCH 30.4 pg (27.0-32.0); MCHC 31.8 g/dL (32.0-37.0); MCV 95.6 FL (80.0-97.0); Mean Platelet Volume 11.3 FL (9.5-12.2); NRBC Per 100 WBC 0 X 10*3/uL (0.00-0.01); Platelet Count 274 X 10*3/uL (140-440); RBC 4.05 X 10*6/uL (4.10-5.20); RDW 15.3 % (11.5-14.5); WBC 6.18 X 10*3/uL (4.50-10.00)
[2024-01-06 11:49] LABS: BUN/Creat Ratio 32.67 Ratio (12.00-20.00); Blood Urea Nitrogen 19.6 mg/dL (9.0-27.0); Calcium 9.7 mg/dL (8.7-10.3); Carbon Dioxide 22.9 mmol/L (21.6-31.8); Chloride 103 mmol/L (96-109); Glucose 150 mg/dL (70-110); Potassium 4.3 mmol/L (3.5-5.5); Sodium 142 mmol/L (135-145)
[2024-01-06] MEDS: HYDROcodone/APAP 10-325MG 1 EACH TAB PO SCH (11:57)
[2024-01-06] MEDS: AZITHROMYCIN 500 MG TAB PO SCH (11:57)
--- NOTE | 2024-01-06 12:23 | P.PN ---
Subjective Progress Note Date: 01/06/24 This is a very pleasant 58-year-old female patient with a known history of chronic obstructive pulmonary disease with FEV1 value 32% of predicted, 12-venx-evop smoking history, pulmonary embolism anticoagulated with Eliquis. She also has a known history of lung cancer diagnosed in 2018 with wedge resecti on of the left upper lobe October 2019. In February 2021 she had a right lung resection as well. 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 She has been undergoing chemotherapy and her third treatment was November 28, 2023 however she was unable to tolerate that dose and it has been on hold since. A recent PET scan from December 28, 2023 revealed positive response to therapy with decreased in metabolic activity throughout the pleura and near the right seventh and 10th rib. She is scheduled to see Dr. Castillo on 01/09/2024 for follow-up. She presented here today with complaints of increasing shortness of breath, cough and congestion. She was having chest tightness. Palpitations. Her O2 saturation was 84% on room air. She has been having some green productive cough as well. Chest x-ray revealed persistent pleural-parenchymal opacity throughout the right lung pleural thickening and/or pleural effusion. Mild increased patchy density in the left medial lung base. White count 9.1. Hemoglobin 13.3. Sodium 138. Potassium 4.1. Bicarb 25. BUN 17. Creatinine 0.62. Glucose 107. Viral screen is negative. Seen today in the emergency department. She is currently sitting up on the stretcher. Awake and alert in no acute distress. She is dyspneic with conversation. Dyspneic with minimal exertion. She is maintaining O2 saturation in the 90s on 2 L/min per nasal cannula. Afebrile. Tachycardic in the 110s. The patient is seen today January 06, 2024 in follow-up on the regular medical floor. She is resting comfortably in bed. Awake and alert in no acute distress. Maintaining O2 saturations in the mid 90s on 2 L/min per nasal cannula. She has been afebrile. Hemodynamically stable. Ultrasound of the bilateral chest revealed no significant fluid pockets. Follow-up chest x-ray reveals ongoing extensive pleuralparenchymal opacities within the right hemithorax. Hazy density in the left lower lung. Postsurgical changes in the right suprahilar region, right midlung and left apex. White count 6.1. Hemoglobin 12.3. Platelets 274. Sodium 142. Potassium 4.3. Bicarb 23. BUN 20. Creatinine 0.6. Glucose 150. She remains on ceftriaxone and azithromycin. Continued on bronchodilators. Continued on steroids. Anticoagulated with Eliquis. Objective - Vital Signs Vital signs: Vital Signs Temp 98.1 F 01/06/24 07:32 Pulse 105 H 01/06/24 11:54 Resp 16 01/06/24 07:32 BP 117/79 01/06/24 07:32 Pulse Ox 96 01/06/24 08:05 FiO2 Intake & Output 01/05/24 01/06/24 01/06/24 18:59 06:59 18:59 Output Total 200 Balance -200 Weight 67.132 kg Output: Urine 200 Other: Voiding Method Toilet # Voids 1 1 # Bowel Movements 1 - Exam GENERAL EXAM: Alert, 58-year-old female, on 2 L nasal cannula, comfortable in no apparent distress. HEAD: Normocephalic. EYES: Normal reaction of pupils, equal size. NOSE: Clear with pink turbinates. THROAT: No erythema or exudates. NECK: No masses, no JVD. CHEST: No chest wall deformity. LUNGS: Equal air entry with bilateral scattered rhonchi more so on the right. CVS: S1 and S2 normal with no audible murmur, regular rhythm. Tachycardic. ABDOMEN: No hepatosplenomegaly, normal bowel sounds, no guarding or rigidity. SPINE: No scoliosis or deformity SKIN: No rashes CENTRAL NERVOUS SYSTEM: No focal deficits, tone is normal in all 4 extremities. EXTREMITIES: There is no peripheral edema. No clubbing, no cyanosis. Per ipheral pulses are intact. 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 Last chemotherapy in October 2023, her third cycle however intolerant, currently on pause Lung cancer initially diagnosed in 2018 with a left upper lobe resection in 2019, right sided wedge resection in 2020 Former smoker, quit in 2018 Chronic obstructive pulmonary disease History of pulmonary embolism, anticoagulated with Eliquis Plan: The patient was seen and evaluated Labs and medications reviewed Chest x-ray and ultrasound reviewed No significant pleural effusions Continue ceftriaxone and azithromycin Continue DuoNeb inhalations, Symbicort, Solu-Medrol Titrate the FiO2 as tolerated We will continue to follow I have personally seen and examined the patient, performed the documentation and the assessment and plan as written. Number of minutes spent on the visit: 10.
--- NOTE | 2024-01-06 13:51 | P.PN ---
Subjective Progress Note Date: 01/06/24 (delayed charting seen at 0830) Patient is a 58-year-old female COPD, lung cancer, GERD, pulmonary embolism who presented to the emergency department with complaints of shortness of breath. On arrival to the ER she underwent an extensive evaluation. Vitals were remarkable for tachycardia with a pulse of 118. Laboratory analysis consisted of CBC, coags, CMP all of which were unremarkable. Influenza A/B/RSV/COVID-19 testing was negative. Chest x-ray was consistent with persistent pulmonary parenchymal opacity throughout the right lung. Patient was admitted and was started on bronchodilators, steroids, and antibiotics. Pulmonary was consulted. Patient seen and examined at bedside. She is still significantly short of breath. Her chronic pain is out of control as we have not been keeping with her same home pain medication regiment. She denies any nausea, vomiting, diarrhea. She does not feel as though she is ready to go breathing esteban. She continues to struggle with high heart rates. Vital signs reviewed General: Nontoxic, no distress, appears at stated age Cardiovascular: S1S2 reg, no murmur Lungs: Ronchi b/l, no accessory muscle use Abdominal: Soft, nontender to palpation, no guarding Ext: No gross muscle atrophy, no edema b/l lower extremities, no contractures Neuro: CN II-XI grossly intact, no focal neuro deficits Psych: Alert, oriented, appropriate affect Assessment/Plan: Acute hypoxic respiratory failure Acute exacerbation of COPD Purulent tracheobronchitis, possible postobstructive pneumonia Metastatic adenocarcinoma of the lung with mets to the bone Intractable pain of malignancy -Solu-Medrol 60 mg IV 8 hours, DuoNebs 4 times daily and every 4 hours as needed, 160-4.52 inhalations twice daily -Sputum culture if able, legionella urine antigen -Pulmonary recs reviewed: conitnue current care -Fentanyl 25 mcg patch every 72 hours, gabapentin 300 mg 3 times daily, [place] 10 mg 1 tablet every 6 hours as needed for pain, Dilaudid 1.5 mg every 3 hours as needed for breakthrough pain -Zithromax 500 mg IV day #2, Rocephin 2 g IV piggyback day #2 Sinus Tachycardia -Telemetry -Obtain recent echocardiogram done at [facility] - Consult cardio to see if CCB would be of benefit for patient was would avoid BB due to respiratory symptoms. Imaging: Chest ultrasound: Only trace fluid on the right. Data Review: Labs reviewed from today include CBC which is unremarkable and basic metabolic profile. DVT prophylaxis: Eliquis Anticipated discharge date: Pending Clinical Course Anticipated discharge place: Pending Clinical Course This dictation was prepared using [employer] voice recognition software. Though every attempt is made to correct errors during dictation some may still exist. Objective - Vital Signs Vital signs: Vital Signs Temp 98.1 F 01/06/24 07:32 Pulse 103 H 01/06/24 12:11 Resp 16 01/06/24 07:32 BP 117/79 01/06/24 07:32 Pulse Ox 96 01/06/24 08:05 FiO2 Intake & Output 01/05/24 01/06/24 01/06/24 18:59 06:59 18:59 Output Total 200 Balance -200 Weight 67.132 kg Output: Urine 200 Other: Voiding Method Toilet # Voids 1 1 # Bowel Movements 1 - Labs CBC & Chem 7: 01/06/24 05:28 01/06/24 05:28 Labs: Abnormal Lab Results - Last 24 Hours (Table) 01/06/24 01/06/24 Range/Units 05:28 05:28 RBC 4.05 L (4.10-5.20) X 10*6/uL MCHC 31.8 L (32.0-37.0) g/dL RDW 15.3 H (11.5-14.5) % Anion Gap 16.10 H (4.00-12.00) mmol/L BUN/Creatinine Ratio 32.67 H (12.00-20.00) Ratio Glucose 150 H (70-110) mg/dL
--- NOTE | 2024-01-07 12:05 | P.PN ---
Subjective Progress Note Date: 01/07/24 This is a very pleasant 58-year-old female patient with a known history of chronic obstructive pulmonary disease with FEV1 value 32% of predicted, [id number] smoking history, pulmonary embolism anticoagulated with Eliquis. She also has a known history of lung cancer diagnosed in 2018 with wedge resecti on of the left upper lobe October 2019. In February 2021 she had a right lung resection as well. 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 She has been undergoing chemotherapy and her third treatment was November 28, 2023 however she was unable to tolerate that dose and it has been on hold since. A recent PET scan from December 28, 2023 revealed positive response to therapy with decreased in metabolic activity throughout the pleura and near the right seventh and 10th rib. She is scheduled to see Dr. Castillo on 01/09/2024 for follow-up. She presented here today with complaints of increasing shortness of breath, cough and congestion. She was having chest tightness. Palpitations. Her O2 saturation was 84% on room air. She has been having some green productive cough as well. Chest x-ray revealed persistent pleural-parenchymal opacity throughout the right lung pleural thickening and/or pleural effusion. Mild increased patchy density in the left medial lung base. White count 9.1. Hemoglobin 13.3. Sodium 138. Potassium 4.1. Bicarb 25. BUN 17. Creatinine 0.62. Glucose 107. Viral screen is negative. Seen today in the emergency department. She is currently sitting up on the stretcher. Awake and alert in no acute distress. She is dyspneic with conversation. Dyspneic with minimal exertion. She is maintaining O2 saturation in the 90s on 2 L/min per nasal cannula. Afebrile. Tachycardic in the 110s. The patient is seen today January 06, 2024 in follow-up on the regular medical floor. She is resting comfortably in bed. Awake and alert in no acute distress. Maintaining O2 saturations in the mid 90s on 2 L/min per nasal cannula. She has been afebrile. Hemodynamically stable. Ultrasound of the bilateral chest revealed no significant fluid pockets. Follow-up chest x-ray reveals ongoing extensive pleuralparenchymal opacities within the right hemithorax. Hazy density in the left lower lung. Postsurgical changes in the right suprahilar region, right midlung and left apex. White count 6.1. Hemoglobin 12.3. Platelets 274. Sodium 142. Potassium 4.3. Bicarb 23. BUN 20. Creatinine 0.6. Glucose 150. She remains on ceftriaxone and azithromycin. Continued on bronchodilators. Continued on steroids. Anticoagulated with Eliquis. The patient is seen today January 07, 2024 in follow-up on the regular medical floor. She is awake and alert in no acute distress. Resting comfortably in bed. Maintaining O2 saturations in the 90s on 2 L/min per nasal cannula. Breathing is easier today compared to yesterday. She is continued on DuoNeb inhalations, Symbicort, Solu-Medrol. She remains on ceftriaxone. Anticoagulate d with Eliquis. Objective - Vital Signs Vital signs: Vital Signs Temp 97.9 F 01/07/24 07:19 Pulse 103 H 01/07/24 11:24 Resp 16 01/07/24 07:19 BP 114/71 01/07/24 07:19 Pulse Ox 96 01/07/24 11:15 FiO2 Intake & Output 01/06/24 01/07/24 01/07/24 17:59 06:59 18:59 Intake Total Balance Intake: Intake, IV Titration Amount cefTRIAXone 2 gm In Sodium Chloride 0.9% 50 ml @ 100 mls/hr IVPB Q24HR [facility] Rx#:[id number] Other: Voiding Method # Voids - Exam GENERAL EXAM: Alert, 58-year-old female, on 2 L nasal cannula, resting comfortably in bed, in no apparent distress. HEAD: Normocephalic. EYES: Normal reaction of pupils, equal size. NOSE: Clear with pink turbinates. THROAT: No erythema or exudates. NECK: No masses, no JVD. CHEST: No chest wall deformity. LUNGS: Equal air entry with bilateral scattered rhonchi more so on the right. CVS: S1 and S2 normal with no audible murmur, regular rhythm. Tachycardic. ABDOMEN: No hepatosplenomegaly, normal bowel sounds, no guarding or rigidity. SPINE: No scoliosis or deformity SKIN: No rashes CENTRAL NERVOUS SYSTEM: No focal deficits, tone is normal in all 4 extremities. EXTREMITIES: There is no peripheral edema. No clubbing, no cyanosis. Peripheral pulses are intact. - Labs CBC & Chem 7: 01/06/24 05:28 01/06/24 05:28 Labs: Abnormal Lab Results - Last 24 Hours (Table) 01/06/24 Range/Units 05:28 Anion Gap 16.10 H (4.00-12.00) mmol/L BUN/Creatinine Ratio 32.67 H (12.00-20.00) Ratio Glucose 150 H (70-110) mg/dL Microbiology - Last 24 Hours (Table) 01/05/24 11:23 Blood Culture - Preliminary Blood 01/05/24 11:23 Blood Culture - Preliminary Blood Assessment and Plan Assessment: Acute hypoxemic respiratory failure secondary to suspected postobstructive pn eumonia, no significant pleural effusions History of recurrent lung cancer, mini right thoracotomy with biopsy in July 2023 revealing invasive poorly differentiated non-small cell carcinoma consis tent with pulmonary adenocarcinoma. Last chemotherapy in October 2023, her third cycle, however intolerant, currently on pause Lung cancer initially diagnosed in 2018 with a left upper lobe resection in 2019, right sided wedge resection in 2020 Former smoker, quit in 2018 Chronic obstructive pulmonary disease History of pulmonary embolism, anticoagulated with Eliquis Plan: The patient was seen and evaluated Medications reviewed Continue the current medications Titrate the FiO2 as tolerated Home possibly later today or in the a.m. I have personally seen and examined the patient, performed the documentation and the assessment and plan as written. Number of minutes spent on the visit: 10.
--- NOTE | 2024-01-07 13:07 | P.CRDCN ---
History of Present Illness Consult date: 01/07/24 History of present illness: HISTORY OF PRESENTING ILLNESS 58-year-old female with past medical history of COPD, metastatic adenocarcinoma of the lung with mets to bone, intractable pain of malignancy, purulent tracheobronchitis. She got admitted to the hospital because of worsening shortness of breath. On admission she was tachycardic. Her ECG showed sinus tachycardia. Her telemetry was reviewed which showed sinus tachycardia with no concerns of any atrial or ventricular arrhythmias. REVIEW OF SYSTEMS 14 point review of system is negative except what is mentioned above in HPI. PHYSICAL EXAMINATION Vital signs reviewed. Neck: Brisk carotid upstroke, no jugular venous distention. Lungs: Diminished breath sounds, mild rhonchi audible Heart: Regular rate and rhythm, S1-S2, no S3, no murmur or rub. Abdomen: Soft nontender, positive bowel sounds. Extremities: No edema, intact distal pulses. Neuro: Alert, oritented, no focal deficits. Detailed neuro exam was not performed. ASSESSMENT Physiological sinus tachycardia due to below mentioned reasons Metastatic lung adenocarcinoma with bone mets. Bone scan showed increased metabolic activities Bone pain and intractable pain Purulent tracheobronchitis Pneumonia Last echo from October 2023 at [facility] showed EF of 55 to 60%, RVSP 30, normal RV size and LV size. No significant valvular dysfunction. PLAN Patient sinus tachycardia appears to be physiological in setting of patient's purulent tracheobronchitis and pneumonia in setting of malignancy. Would recommend not to blunt this physiological response with AV florence blocking agent. Continue telemetry monitoring for next 24 hours. If no concerns of atrial tachycardias or any other arrhythmias, no need of discharging on beta-blockers. Supportive care. Other comorbidities management as per primary team Hussein Rose MD, FACC, RPVI Thank you for allowing [facility] to participate in this patient's care. Feel free to reach out in case of any followup questions. Past Medical History Past Medical History: Cancer, COPD, GERD/Reflux, Pulmonary Embolus (PE) Additional Past Medical History / Comment(s): ovarian cyst, lung CA dx 2019 w /wedge resection left upper lobe 2019 at [facility] in [place]; PE 06/21/22, right lower lung resection for lung CA done in February of 2020- did 4 rounds of chemo after that and was cancer free until February of 2023. She started immunotherapy and chemotherapy and was in her third treatment and had a reaction at the infusion where she felt like there was a weight on her chest and she couldn't breathe. Then chemo was put on hold. History of Any Multi-Drug Resistant Organisms: None Reported Past Surgical History: Orthopedic Surgery, Tonsillectomy Additional Past Surgical History / Comment(s): right hand surgery, ectopic surgery, Lung resection of Right lower lobe and left upper lobe, 1994 had lymph nodes removed from right armpit Past Anesthesia/Blood Transfusion Reactions: Motion Sickness Additional Past Anesthesia/Blood Transfusion Reaction / Comment(s): motion sickness in the car Past Psychological History: No Psychological Hx Reported Smoking Status: Former smoker Past Alcohol Use History: None Reported Additional Past Alcohol Use History / Comment(s): QUIT 10/16/2019 Past Drug Use History: None Reported - Past Family History Father Family Medical History: Cancer Mother Family Medical History: Cancer, Deep Vein Thrombosis (DVT), Pulmonary Embolus Medications and Allergies Home Medications Medication Instructions Recorded Confirmed Type Albuterol Inhaler [Ventolin Hfa 2 puff INHALATION RT-Q6H PRN 09/17/19 01/05/24 History Inhaler] Cetirizine HCl [Zyrtec] 10 mg PO DAILY 06/21/22 01/05/24 History Ibuprofen [Motrin Ib] 600 mg PO Q5H PRN 06/21/22 01/05/24 History Omeprazole Magnesium [PriLOSEC OTC] 20 mg PO DAILY 06/21/22 01/05/24 History Apixaban [Eliquis] 5 mg PO BID 30 Days #60 tab 06/24/22 01/05/24 Rx Ipratropium-Albuterol Nebulize 3 ml INHALATION RT-QID 30 Days 06/24/22 01/05/24 Rx [Duoneb 0.5 mg-3 mg/3 ml Soln] #300 ml Budesonide-Formot 160-4.5 Mcg 2 puff INHALATION RT-BID 02/28/23 01/05/24 History [Symbicort 160-4.5 Mcg Inhaler] Gabapentin [Neurontin] 300 mg PO TID 02/28/23 01/05/24 History Sennosides/Docusate Sodium [Senna 1 cap PO BID PRN 02/28/23 01/05/24 History Plus 8.6-50 mg Softgel] fentaNYL 25MCG/HR PATCH [Duragesic 1 patch TRANSDERM Q72H 08/15/23 01/05/24 History 25MCG/HR] Acetaminophen [Tylenol 8 Hour] 1,300 mg PO Q5H PRN 01/05/24 01/05/24 History Folic Acid 1 mg PO DAILY 01/05/24 01/05/24 History HYDROcodone/APAP 10-325MG [[place] 1 tab PO Q6HR PRN 01/05/24 01/05/24 History 10-325] Lidocaine/Menthol [Asperflex Max 1 patch TRANSDERM DAILY 01/05/24 01/05/24 History 4%-1% Patch] Linaclotide [Linzess] 145 mcg PO DAILY PRN 01/05/24 01/05/24 History Ondansetron Odt [Zofran Odt] 8 mg PO Q6H PRN 01/05/24 01/05/24 History Allergies Allergy/AdvReac Type Severity Reaction Status Date / Time sulfamethoxazole Allergy Rash/Hives Verified 01/05/24 12:54 [From Bactrim] trimethoprim [From Bactrim] Allergy Rash/Hives Verified 01/05/24 12:54 Physical Exam Vitals: Vital Signs Temp Pulse Pulse Resp BP Pulse Ox 01/07/24 11:24 103 H 01/07/24 11:15 96 01/07/24 11:12 98 01/07/24 07:19 97.9 F 106 H 16 114/71 98 01/07/24 01:47 98.0 F 98 16 114/72 97 01/06/24 19:35 118 H 01/06/24 19:25 120 H 01/06/24 19:04 98.2 F 112 H 18 101/56 97 01/06/24 18:21 113 H 01/06/24 15:57 124 H 01/06/24 15:46 121 H 01/06/24 13:43 98.0 F 112 H 18 103/65 96 01/06/24 12:11 103 H Intake and Output 01/06/24 01/07/24 01/07/24 21:59 06:59 14:59 Intake Total Balance Intake: Intake, IV Titration Amount cefTRIAXone 2 gm In Sodium Chloride 0.9% 50 ml @ 100 mls/hr IVPB Q24HR [facility] Rx#:[id number] Other: Voiding Method # Voids Results 01/06/24 05:28 01/06/24 05:28 Current Medications Generic Name Dose Route Start Last Admin Trade Name Freq PRN Reason Stop Dose Admin Acetaminophen 1,000 mg 01/05/24 16:17 Acetaminophen Tab 500 Mg Tab PO Q6H PRN Pain Acetaminophen 650 mg 01/05/24 16:18 Acetaminophen Tab 325 Mg Tab PO Q6HR PRN Fever and/ or Pain Hydrocodone Bitart/Acetaminophen 1 each 01/06/24 11:30 01/07/24 11:30 Hydrocodone/Apap 10-325mg 1 Each Tab PO 1 each 0530,1130,1730,2330 TIM Administration Albuterol Sulfate 2.5 mg 01/05/24 16:18 Albuterol Nebulized 2.5 Mg/3 Ml INHALATION RT-QID PRN Shortness Of Breath Or Wheezing Albuterol/Ipratropium 3 ml 01/05/24 12:41 Ipratropium-Albuterol 3 Ml Neb INHALATION RT-Q4H PRN shortness of breath Albuterol/Ipratropium 3 ml 01/05/24 20:00 01/07/24 11:12 Ipratropium-Albuterol 3 Ml Neb INHALATION 3 ml RT-QID TIM Administration Apixaban 5 mg 01/05/24 21:00 01/07/24 08:00 Apixaban 5 Mg Tab PO 5 mg BID TIM Administration Protocol Bisacodyl 5 mg 01/05/24 16:18 Bisacodyl 5 Mg Tablet.Dr PO DAILY PRN Constipation Budesonide/Formoterol Fumarate 2 puff 01/05/24 20:00 01/07/24 11:12 Symbicort 160-4.5 Mcg Inhaler INHALATION 2 puff RT-BID TIM Administration Fentanyl 1 patch 01/05/24 17:00 01/05/24 17:00 Fentanyl 25mcg/Hr Patch TRANSDERM 1 patch Q72H TIM Administration Protocol Folic Acid 1 mg 01/06/24 09:00 01/07/24 08:00 Folic Acid 1 Mg Tab PO 1 mg DAILY TIM Administration Gabapentin 300 mg 01/05/24 16:30 01/07/24 06:19 Gabapentin 300 Mg Cap PO 300 mg TID TIM Administration Guaifenesin 600 mg 01/05/24 21:00 01/07/24 08:00 Guaifenesin 600 Mg Tablet.Er PO 600 mg Q12HR TIM Administration Hydromorphone HCl 0.5 mg 01/05/24 16:19 Hydromorphone 0.5 Mg/0.5 Ml Syringe IVP Q3HR PRN Pain Ceftriaxone Sodium 2 gm/ 50 mls @ 100 mls/hr 01/06/24 09:00 01/07/24 08:01 Sodium Chloride IVPB 01/09/24 09:29 100 mls/hr Q24HR TIM Administration Protocol Ibuprofen 600 mg 01/05/24 16:18 01/07/24 03:25 Ibuprofen 600 Mg Tab PO 600 mg Q5H PRN Administration Pain Loratadine 10 mg 01/06/24 09:00 01/07/24 08:00 Loratadine 10 Mg Tab PO 10 mg DAILY TIM Administration Melatonin 5 mg 01/05/24 16:18 Melatonin 5 Mg Tablet PO HS PRN Insomnia Methylprednisolone Sodium Succinate 60 mg 01/05/24 18:00 01/07/24 12:47 Methylprednisolone Sod Succi 125 Mg/2 Ml Vial IV 60 mg Q6HR TIM Administration Miscellaneous Information 1 each 01/05/24 12:41 Pneumonia Protocol Utilized 1 Each Misc PO ONCE PRN Per Protocol Linaclotide [Linzess 145 mcg 01/05/24 16:18 ] 145 Mcg Capsule PO DAILY PRN IBS Ondansetron HCl 4 mg 01/05/24 16:18 Ondansetron 4 Mg/2 Ml Vial IVP Q6H PRN Nausea Pantoprazole Sodium 40 mg 01/06/24 07:30 01/07/24 08:00 Pantoprazole 40 Mg Tablet PO 40 mg DAILY@0730 TIM Administration Intake and Output 01/06/24 01/07/24 01/07/24 21:59 06:59 14:59 Intake Total Balance Intake: Intake, IV Titration Amount cefTRIAXone 2 gm In Sodium Chloride 0.9% 50 ml @ 100 mls/hr IVPB Q24HR [facility] Rx#:[id number] Other: Voiding Method # Voids 01/06/24 05:28 01/06/24 05:28
--- NOTE | 2024-01-07 14:00 | P.PN ---
Subjective Progress Note Date: 01/07/24 (delayed charting seen at 1030) Patient is a 58-year-old female COPD, lung cancer, GERD, pulmonary embolism who presented to the emergency department with complaints of shortness of breath. On arrival to the ER she underwent an extensive evaluation. Vitals were remarkable for tachycardia with a pulse of 118. Laboratory analysis consisted of CBC, coags, CMP all of which were unremarkable. Influenza A/B/RSV/COVID-19 testing was negative. Chest x-ray was consistent with persistent pulmonary parenchymal opacity throughout the right lung. Patient was admitted and was started on bronchodilators, steroids, and antibiotics. Pulmonary was consulted. Patient seen and examined at bedside. She reports that her breathing is better today. She continues to have some tachycardia. She is having a significant amount of pain when up and walking around. She attributes that to being in the bed as she typically sleeps in a recliner at home. Overall feeling better but still not back to her normal self. Patient reports that Dr. Ball stated it would be a good idea for her to stay hospitalized today to see Dr. Adams tomorrow. Vital signs reviewed General: Nontoxic, no distress, appears at stated age Cardiovascular: S1S2 reg, no murmur Lungs: Ronchi b/l, no accessory muscle use Abdominal: Soft, nontender to palpation, no guarding Ext: No gross muscle atrophy, no edema b/l lower extremities, no contractures Neuro: CN II-XI grossly intact, no focal neuro deficits Psych: Alert, oriented, appropriate affect Assessment/Plan: Acute hypoxic respiratory failure Acute exacerbation of COPD Purulent tracheobronchitis, possible postobstructive pneumonia Metastatic adenocarcinoma of the lung with mets to the bone Intractable pain of malignancy -Pulmonary note reviewed from today: Possibly home later today or in the a.m. -Solu-Medrol 60 mg IV 8 hours, DuoNebs 4 times daily and every 4 hours as needed, 160-4.52 inhalations twice daily -Sputum culture if able, legionella urine antigen negative -Fentanyl 25 mcg patch every 72 hours, gabapentin 300 mg 3 times daily, [place] 10 mg 1 tablet every 6 hours as needed for pain, Dilaudid 1.5 mg every 3 hours as needed for breakthrough pain -Zithromax 500 mg IV day #3, Rocephin 2 g IV piggyback day #3 Sinus Tachycardia -Telemetry -Cardiology note reviewed: Sinus tachycardia appears to be physiologic in the setting of the patient's tracheobronchitis and pneumonia with malignancy. No AV florence blocking agents recommended at this time. Imaging: None new Data Review: Labs reviewed from today include CBC which is unremarkable and basic metabolic profile. DVT prophylaxis: Eliquis Anticipated discharge date: in AM Anticipated discharge place: Home This dictation was prepared using [employer] voice recognition software. Though every attempt is made to correct errors during dictation some may still exist. Objective - Vital Signs Vital signs: Vital Signs Temp 97.9 F 01/07/24 07:19 Pulse 103 H 01/07/24 11:24 Resp 16 01/07/24 07:19 BP 114/71 01/07/24 07:19 Pulse Ox 96 01/07/24 11:15 FiO2 Intake & Output 01/06/24 01/07/24 01/07/24 17:59 06:59 18:59 Intake Total Balance Intake: Intake, IV Titration Amount cefTRIAXone 2 gm In Sodium Chloride 0.9% 50 ml @ 100 mls/hr IVPB Q24HR [facility] Rx#:[id number] Other: Voiding Method # Voids - Labs CBC & Chem 7: 01/06/24 05:28 01/06/24 05:28 Labs: Microbiology - Last 24 Hours (Table) 01/05/24 11:23 Blood Culture - Preliminary Blood 01/05/24 11:23 Blood Culture - Preliminary Blood
[2024-01-08 08:49] VITALS: BP 134/81; RESP 16; TEMP 97.6
[2024-01-08] MEDS: predniSONE 20 MG TAB PO SCH (09:53)
[2024-01-08] MEDS: CEFDINIR 300 MG CAP PO SCH (09:53)
--- NOTE | 2024-01-08 11:11 | P.DS ---
Providers Date of admission: 01/05/24 12:42 Expected date of discharge: 01/08/24 Attending physician: Tonia Tatum MD Consults: 01/05/24 12:41 Consult Physician Routine Consulting Provider: Jose Underwood Consult Reason/Comments: dyspnea Do you want consulting provider notified?: Yes 01/06/24 13:46 Consult Physician Routine Consulting Provider: Hussein Rose Consult Reason/Comments: tachycardia Do you want consulting provider notified?: Yes [facility] Course: Discharge Diagnosis: Acute hypoxic respiratory failure Acute exacerbation of COPD Purulent tracheobronchitis, possible postobstructive pneumonia Metastatic adenocarcinoma of the lung with mets to the bone Intractable pain of malignancy Sinus Tachycardia Hospital Course: Patient is a 58-year-old female COPD, lung cancer, GERD, pulmonary embolism who presented to the emergency department with complaints of shortness of breath. On arrival to the ER she underwent an extensive evaluation. Vitals were remarkable for tachycardia with a pulse of 118. Laboratory analysis consisted of CBC, coags, CMP all of which were unremarkable. Influenza A/B/RSV/COVID-19 testing was negative. Chest x-ray was consistent with persistent pulmonary parenchymal opacity throughout the right lung. Patient was admitted and was started on bronchodilators, steroids, and antibiotics. Pulmonary was consulted. On room air at the time of discharge. Sinus tachycardia likely physiologic in the setting of patient's tracheobronchitis and pneumonia with malignancy. Cardiology recommending against AV florence blocking agents. Follow-up outpatient with pulmonology and cardiology. Patient seen and examined at bedside. Vital signs reviewed and stable. General: Nontoxic, no distress, appears at stated age Derm: Warm, dry Head: Atraumatic, normocephalic, symmetric Eyes: EOMI, no lid lag, anicteric sclera Mouth: No lip lesion, mucus membranes moist Cardiovascular: S1S2 reg, no murmur Lungs: CTA bilateral, no rhonchi, no rales, no accessory muscle use Abdominal: Soft, nontender to palpation, no guarding, no appreciable organomegaly Ext: No gross muscle atrophy, no edema, no contractures Neuro: CN II-XI grossly intact, no focal neuro deficits Psych: Alert, oriented, appropriate affect A total of 33 minutes of time were spent preparing this complex discharge summary. Patient was discharged on 01/08/2024 at 1019. Patient Condition at Discharge: Stable Plan - Discharge Summary Discharge Rx Participant: Yes New Discharge Prescriptions: New Cefdinir [Omnicef] 300 mg PO BID #1 cap predniSONE [Deltasone] 40 mg PO DAILY #25 tab guaiFENesin [Mucinex] 600 mg PO Q12HR PRN #30 tab PRN Reason: Cough Continue Albuterol Inhaler [Ventolin Hfa Inhaler] 2 puff INHALATION RT-Q6H PRN PRN Reason: Shortness Of Breath Omeprazole Magnesium [PriLOSEC OTC] 20 mg PO DAILY Cetirizine HCl [Zyrtec] 10 mg PO DAILY Ipratropium-Albuterol Nebulize [Duoneb 0.5 mg-3 mg/3 ml Soln] 3 ml INHALATION RT-QID 30 Days #300 ml Apixaban [Eliquis] 5 mg PO BID 30 Days #60 tab Budesonide-Formot 160-4.5 Mcg [Symbicort 160-4.5 Mcg Inhaler] 2 puff INHALATION RT-BID fentaNYL 25MCG/HR PATCH [Duragesic 25MCG/HR] 1 patch TRANSDERM Q72H Lidocaine/Menthol [Asperflex Max 4%-1% Patch] 1 patch TRANSDERM DAILY HYDROcodone/APAP 10-325MG [[place] 10-325] 1 tab PO Q6HR PRN PRN Reason: Pain Ibuprofen [Motrin Ib] 600 mg PO Q5H PRN PRN Reason: Pain Gabapentin [Neurontin] 300 mg PO TID Sennosides/Docusate Sodium [Senna Plus 8.6-50 mg Softgel] 1 cap PO BID PRN PRN Reason: Constipation Ondansetron Odt [Zofran ODT] 8 mg PO Q6H PRN PRN Reason: Nausea Folic Acid 1 mg PO DAILY Linaclotide [Linzess] 145 mcg PO DAILY PRN PRN Reason: IBS Changed Acetaminophen [Tylenol 8 Hour] 650 mg PO Q6HR PRN #0 PRN Reason: Pain Discharge Medication List Albuterol Inhaler [Ventolin Hfa Inhaler] 2 puff INHALATION RT-Q6H PRN 09/17/19 [History] Cetirizine HCl [Zyrtec] 10 mg PO DAILY 06/21/22 [History] Ibuprofen [Motrin Ib] 600 mg PO Q5H PRN 06/21/22 [History] Omeprazole Magnesium [PriLOSEC OTC] 20 mg PO DAILY 06/21/22 [History] Apixaban [Eliquis] 5 mg PO BID 30 Days #60 tab 06/24/22 [Rx] Ipratropium-Albuterol Nebulize [Duoneb 0.5 mg-3 mg/3 ml Soln] 3 ml INHALATION RT-QID 30 Days #300 ml 06/24/22 [Rx] Budesonide-Formot 160-4.5 Mcg [Symbicort 160-4.5 Mcg Inhaler] 2 puff INHALATION RT-BID 02/28/23 [History] Gabapentin [Neurontin] 300 mg PO TID 02/28/23 [History] Sennosides/Docusate Sodium [Senna Plus 8.6-50 mg Softgel] 1 cap PO BID PRN 02/28/23 [History] fentaNYL 25MCG/HR PATCH [Duragesic 25MCG/HR] 1 patch TRANSDERM Q72H 08/15/23 [History] Folic Acid 1 mg PO DAILY 01/05/24 [History] HYDROcodone/APAP 10-325MG [[place] 10-325] 1 tab PO Q6HR PRN 01/05/24 [History] Lidocaine/Menthol [Asperflex Max 4%-1% Patch] 1 patch TRANSDERM DAILY 01/05/24 [History] Linaclotide [Linzess] 145 mcg PO DAILY PRN 01/05/24 [History] Ondansetron Odt [Zofran ODT] 8 mg PO Q6H PRN 01/05/24 [History] Acetaminophen [Tylenol 8 Hour] 650 mg PO Q6HR PRN #0 01/08/24 [Rx] Cefdinir [Omnicef] 300 mg PO BID #1 cap 01/08/24 [Rx] guaiFENesin [Mucinex] 600 mg PO Q12HR PRN #30 tab 01/08/24 [Rx] predniSONE [Deltasone] 40 mg PO DAILY #25 tab 01/08/24 [Rx] Follow up Appointment(s)/Referral(s): Rao Foster MD [Primary Care Provider] - 01/18/24 9:00 am Harrison Adams DO [Doctor of Osteopathic Medicine] - 01/22/24 9:15 am Patient Instructions/Handouts: Acute Bronchitis (GEN), COPD (Chronic Obstructive Pulmonary Disease) (DC) Activity/Diet/Wound Care/Special Instructions: Please see PCP and pulmonology. Discharge Disposition: HOME SELF-CARE
[2024-01-08 12:20] VITALS: PULSE 101
--- NOTE | 2024-01-08 13:02 | P.PN ---
Subjective Progress Note Date: 01/08/24 This is a very pleasant 58-year-old female patient with a known history of chronic obstructive pulmonary disease with FEV1 value 32% of predicted, [id number] smoking history, pulmonary embolism anticoagulated with Eliquis. She also has a known history of lung cancer diagnosed in 2018 with wedge resecti on of the left upper lobe October 2019. In February 2021 she had a right lung resection as well. 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 She has been undergoing chemotherapy and her third treatment was November 28, 2023 however she was unable to tolerate that dose and it has been on hold since. A recent PET scan from December 28, 2023 revealed positive response to therapy with decreased in metabolic activity throughout the pleura and near the right seventh and 10th rib. She is scheduled to see Dr. Castillo on 01/09/2024 for follow-up. She presented here today with complaints of increasing shortness of breath, cough and congestion. She was having chest tightness. Palpitations. Her O2 saturation was 84% on room air. She has been having some green productive cough as well. Chest x-ray revealed persistent pleural-parenchymal opacity throughout the right lung pleural thickening and/or pleural effusion. Mild increased patchy density in the left medial lung base. White count 9.1. Hemoglobin 13.3. Sodium 138. Potassium 4.1. Bicarb 25. BUN 17. Creatinine 0.62. Glucose 107. Viral screen is negative. Seen today in the emergency department. She is currently sitting up on the stretcher. Awake and alert in no acute distress. She is dyspneic with conversation. Dyspneic with minimal exertion. She is maintaining O2 saturation in the 90s on 2 L/min per nasal cannula. Afebrile. Tachycardic in the 110s. The patient is seen today January 06, 2024 in follow-up on the regular medical floor. She is resting comfortably in bed. Awake and alert in no acute distress. Maintaining O2 saturations in the mid 90s on 2 L/min per nasal cannula. She has been afebrile. Hemodynamically stable. Ultrasound of the bilateral chest revealed no significant fluid pockets. Follow-up chest x-ray reveals ongoing extensive pleuralparenchymal opacities within the right hemithorax. Hazy density in the left lower lung. Postsurgical changes in the right suprahilar region, right midlung and left apex. White count 6.1. Hemoglobin 12.3. Platelets 274. Sodium 142. Potassium 4.3. Bicarb 23. BUN 20. Creatinine 0.6. Glucose 150. She remains on ceftriaxone and azithromycin. Continued on bronchodilators. Continued on steroids. Anticoagulated with Eliquis. The patient is seen today January 07, 2024 in follow-up on the regular medical floor. She is awake and alert in no acute distress. Resting comfortably in bed. Maintaining O2 saturations in the 90s on 2 L/min per nasal cannula. Breathing is easier today compared to yesterday. She is continued on DuoNeb inhalations, Symbicort, Solu-Medrol. She remains on ceftriaxone. Anticoagulate d with Eliquis. The patient is seen today January 08, 2020 for follow-up on the regular medical floor. She is sitting up in bed. Awake and alert in no acute distress. Feeling back to her baseline. No worsening shortness of breath, cough or congestion. No fever or chills. She is maintaining O2 saturations in the mid 90s on 2 L/min per nasal cannula. Remains on Symbicort, Solu-Medrol, DuoNeb v entilations. Anticoagulated with Eliquis. Remains on antibiotics in the form of ceftriaxone. Objective - Vital Signs Vital signs: Vital Signs Temp 97.6 F 01/08/24 07:47 Pulse 101 H 01/08/24 12:00 Resp 16 01/08/24 07:47 BP 134/81 01/08/24 07:47 Pulse Ox 91 L 01/08/24 10:28 FiO2 Intake & Output 01/07/24 01/08/24 01/08/24 18:59 06:59 18:59 Intake Total 600 Balance 600 Intake: Oral 600 Other: Voiding Method Toilet # Voids 2 2 # Bowel Movements 1 - Exam GENERAL EXAM: Alert, pleasant 58-year-old female, on 2 L nasal cannula, in no apparent distress. HEAD: Normocephalic. EYES: Normal reaction of pupils, equal size. NOSE: Clear with pink turbinates. THROAT: No erythema or exudates. NECK: No masses, no JVD. CHEST: No chest wall deformity. LUNGS: Equal air entry with bilateral scattered rhonchi more so on the right. CVS: S1 and S2 normal with no audible murmur, regular rhythm. Tachycardic. ABDOMEN: No hepatosplenomegaly, normal bowel sounds, no guarding or rigidity. SPINE: No scoliosis or deformity SKIN: No rashes CENTRAL NERVOUS SYSTEM: No focal deficits, tone is normal in all 4 extremities. EXTREMITIES: There is no peripheral edema. No clubbing, no cyanosis. Peripheral pulses are intact. - Labs CBC & Chem 7: 01/06/24 05:28 01/06/24 05:28 Labs: Microbiology - Last 24 Hours (Table) 01/05/24 11:23 Blood Culture - Preliminary Blood 01/05/24 11:23 Blood Culture - Preliminary Blood Assessment and Plan Assessment: Acute hypoxemic respiratory failure secondary to suspected postobstructive pneumonia, no significant pleural effusions History of recurrent lung cancer, mini right thoracotomy with biopsy in July 2023 revealing invasive poorly differentiated non-small cell carcinoma consistent with pulmonary adenocarcinoma. Last chemotherapy in October 2023, her third cycle, however intolerant, currently on pause Lung cancer initially diagnosed in 2018 with a left upper lobe resection in 2019, right sided wedge resection in 2020 Former smoker, quit in 2018 Chronic obstructive pulmonary disease History of pulmonary embolism, anticoagulated with Eliquis Plan: The patient was seen and evaluated Medications reviewed Transitioned to oral steroids Transitioned to oral antibiotics Cleared for discharge from the pulmonary standpoint Evaluate for possible home oxygen Follow-up in our office in 1 week I have personally seen and examined the patient, performed the documentation and the assessment and plan as written. Number of minutes spent on the visit: 10.
== END 2024-01-08 14:42 | disposition home or self-care (01) | DRG 193 ==
LOC: EC 10:47 → 5NMEDONC 12:42
PROVIDERS: ADMIT Internal Medicine; ATTEND Internal Medicine
DX: J18.8 Other pneumonia, unspecified organism (principal); J96.01 Acute respiratory failure with hypoxia; C34.90 Malignant neoplasm of unspecified part of unspecified bronchus or lung; C79.51 Secondary malignant neoplasm of bone; J44.0 Chronic obstructive pulmonary disease with (acute) lower respiratory infection; J44.1 Chronic obstructive pulmonary disease with (acute) exacerbation; K21.9 Gastro-esophageal reflux disease without esophagitis; K59.09 Other constipation; J40 Bronchitis, not specified as acute or chronic; Z28.311 Partially vaccinated for COVID-19; Z28.21 Immunization not carried out because of patient refusal; Z88.2 Allergy status to sulfonamides; G89.3 Neoplasm related pain (acute) (chronic); Z92.21 Personal history of antineoplastic chemotherapy; Z11.52 Encounter for screening for COVID-19; Z86.711 Personal history of pulmonary embolism; Z79.01 Long term (current) use of anticoagulants; Z79.51 Long term (current) use of inhaled steroids; Z79.899 Other long term (current) drug therapy; Z90.2 Acquired absence of lung [part of]; Z87.891 Personal history of nicotine dependence
CPT/HCPCS: 36415; 71046; 76604; 80048; 80053; 83605; 83735; 85025; 85027; 85610; 85730; 87040; 87449; 87636; 93005; 94640; 94760; 96365; 96367; 96375; 99291

== ENCOUNTER → 2024-03-29 | Outpatient (CLI) | payer OTHER ==
--- NOTE | 2024-03-29 13:17 | US ---
EXAMINATION TYPE: US chest DATE OF EXAM: 03/29/2024 COMPARISON: XR 03/28/2024 CLINICAL INDICATION: Female, 59 years old with history of J90 PLEURAL EFFUSION, NOT ELSEWHERE CLASSIF IED; Lung Cancer; DANIEL TECHNIQUE: Targeted ultrasound of the posterior lower bilateral hemithoraces EXAM MEASUREMENTS: Right Pleural Effusion pocket size: 0.7 cm Right skin surface to fluid distance: NA cm Left Pleural Effusion pocket size: 0 cm Left skin surface to fluid distance: 0 cm No markings left due to pocket size Pulmonologists are able to review the images in the patient?s EMR. IMPRESSIONS: 1. Minimal right pleural effusion
== END | disposition home or self-care (01) ==
LOC: RADUSWWP 13:00
PROVIDERS: ATTEND Internal Medicine Critical Care Medicine
DX: J90 Pleural effusion, not elsewhere classified (principal); C34.90 Malignant neoplasm of unspecified part of unspecified bronchus or lung
CPT/HCPCS: 76604

== ENCOUNTER → 2024-04-25 | Outpatient (CLI) | payer OTHER ==
--- NOTE | 2024-04-27 12:12 | PE ---
EXAMINATION TYPE: PET CT fusion skull to thigh DATE OF EXAM: 04/25/2024 CLINICAL INDICATION:Female, 59 years old with history of Lung Ca C34.31; TECHNIQUE: Following the intravenous administration of 13.43 mCi of F-18 FDG, whole body images are performed from the skull base to the midthigh. Images are reviewed on the computer in the coronal, axial, and sagittal planes. Reconstructed rotating images are created on independent workstation and reviewed on the computer. A non-contrast CT is performed in conjunction with the PET scan. Glucose level 105 mg/dL CT DLP: 392.92 mGycm, Automated exposure control for dose reduction was used. COMPARISON: CT None, PET/CT 12/28/2023, MRI: None FINDINGS: Mediastinal SUV mean is 1.8. Hepatic parenchyma SUV mean is 2.5. SKULL BASE AND NECK: FDG activity at the level of the larynx is no longer visualized and felt to be physiologic on prior e xam. CHEST, MEDIASTINUM, AND HILAR REGION: There is positive response to therapy with decreasing FDG avid lesions along the pleura with associat ed pleural thickening. Examples include : * Medial right upper lobe max SUV 5.8, 5.8, previously 7.8 * right suprahilar region max SUV 5.9, 8.4, previously 10.5 * Right pulmonary hilum max SUV 7.9 previously 8.3. * Posterior costophrenic angle max SUV 9.2, previously 7.9. * Medial right lower lobe max SUV 4.3 previously 7.4. * Anterior costophrenic angle max SUV 8 point to previously 10.6. Abnormal FDG tracking along the subcutaneous tissues is no longer visualized the right chest wall.. Physiologic lymph nodes bilaterally in the axillas. ABDOMEN AND PELVIS: No suspicious FDG activity. Uptake along the anterior liver felt to be within pos sibly pleural reflection. OSSEOUS STRUCTURES: Abnormal FDG uptake within osseous structures. Examples include: * Right rib 10 and max SUV 2.8, previously 2.2, 5.3. * Right rib 7 Max SUV 4.0, previously 7.1, 10.0. OTHER CT: Adenomatous hypertrophy changes of the adrenal glands bilaterally left greater than right. Scattered clonic diverticulosis. Appendix is normal. Left posterior lower neck muscle strain with mil d FDG activity has resolved. Posterior neck/left shoulder muscle uptake remains present.. IMPRESSION: Mixed response response to therapy with decreasing areas of increasing metabolic activity as above. M ild increase in rib 10 and decrease in rib 7 metabolic activity.
== END | disposition home or self-care (01) ==
LOC: RADPETMAIN 09:08
PROVIDERS: ATTEND Internal Medicine Hematology & Oncology
DX: C34.31 Malignant neoplasm of lower lobe, right bronchus or lung (principal)
CPT/HCPCS: 78815; A9552

== ENCOUNTER → 2024-07-25 | Outpatient (CLI) | payer OTHER ==
--- NOTE | 2024-07-27 00:52 | PE ---
EXAMINATION TYPE: PET CT fusion skull to thigh DATE OF EXAM: 07/25/2024 CLINICAL INDICATION:Female, 59 years old with history of C34.31 Lung Ca; TECHNIQUE: Following the intravenous administration of 13.08 mCi of F-18 FDG, whole body images are performed from the skull base to the midthigh. Images are reviewed on the computer in the coronal, axial, and sagittal planes. Reconstructed rotating images are created on independent workstation and reviewed on the computer. A non-contrast CT is performed in conjunction with the PET scan. Glucose level 92 mg/dL CT DLP: 313.79 mGycm, Automated exposure control for dose reduction was used. COMPARISON: CT 06/27/2023, 08/16/2022, 06/21/2022, PET/CT 04/25/2024, 12/28/2023, 09/07/2023, 03/17/2023, M RI: None FINDINGS: Mediastinal SUV mean is 2.0. Hepatic parenchyma SUV mean is 2.5. SKULL BASE AND NECK: No suspicious radiotracer uptake. Physiologic activity within the vocal cords. CHEST, MEDIASTINUM, AND HILAR REGION: Redemonstration of FDG avid lesions along the pleura with associated pleural thickening. Postsurgical changes identified within the right upper lung with suture material identified. Examples include : * Medial right upper lobe max SUV 6.2, previously 5.8, 5.8, 7.8 . * right suprahilar region max SUV 8.8, previously 5.9, 8.4, 10.5. * Right pulmonary hilum max SUV 9.1, previously 7.9, 8.3. * Posterior costophrenic angle max SUV 8.0, previously 9.2, 7.9. * Medial right lower lobe max SUV 9.2, previously 4.3, 7.4. * Anterior costophrenic angle max SUV 9.2, previously, 8.2, 10.6. ABDOMEN AND PELVIS: No suspicious FDG activity. Radiotracer uptake identified throughout the ascending colon is likely physiologic. Nonspecific new stranding identified within the anterior left upper abdomen with a maximum SUV of 4.1 . OSSEOUS STRUCTURES: Abnormal FDG uptake within osseous structures. Examples include: * Right rib 10 and max SUV 2.2, previously 2.8, 2.2, 5.3. * Right rib 7 Max SUV 6.0, previously 4.0, 7.1, 10.0. * No new focal suspicious osseous radiotracer uptake. * Scattered physiologic uptake identified within the muscles. OTHER CT: Centrilobular emphysematous changes. Right lung volume loss. Slightly increased consolidati ve opacities within the right lower lung. Adenomatous hypertrophy changes of the adrenal glands redem onstrated bilaterally with left greater than right. Scattered clonic diverticulosis. Mildly prominent gallbladder. Moderate colonic stool burden. Pelvic phleboliths. Appendix is normal. Trace free fluid in the pelvis. Mild atherosclerotic calcification of the aorta and its branches. Scoliotic curvature of the visualized spine. IMPRESSION: 1. Overall mixed response to therapy with slightly increased radiotracer activity throughout the rig ht pleura and anterior right seventh rib with mild decrease in radiotracer activity within the right 10th rib and posterior costophrenic pleural region. 2. Development of nonspecific left anterior peritoneal stranding changes with mild FDG uptake. Could represent early peritoneal metastasis versus other etiologies such as an infectious/inflammatory glenroy nges. Consider follow-up CT abdomen and pelvis and 3 months. [facility], , 07/27/2024 12:49 AM
== END | disposition home or self-care (01) ==
LOC: RADPETMAIN 12:19
PROVIDERS: ATTEND Internal Medicine Hematology & Oncology
DX: C34.11 Malignant neoplasm of upper lobe, right bronchus or lung
CPT/HCPCS: 78815

== ENCOUNTER 2024-08-19 12:53 | Day surgery (SDC) | payer OTHER ==
[2024-08-16 10:08] VITALS: BMI 22.1
[~2024-08-19 12:53] MED LIST changes: -DEXAMETHASONE SOD PHOSPHATE 4 MG/ML 1 ML VIAL IV ONE; -LACTATED RINGERS 1,000 ML IV SCH; -LIDOCAINE 1% (10MG/ML) FOR IV START INTRADERMA PRN; +Pre Op ABX Message 1 EACH MISC MISCELLANE ONE
[2024-08-19] MEDS: LACTATED RINGERS 1,000 ML IV SCH (13:41)
[2024-08-19] MEDS: LIDOCAINE 1% (10MG/ML) FOR IV START INTRADERMA PRN (13:42)
[2024-08-19] MEDS: IV FLUID CONTINUATION 1,000 ML IV ONE ×2 (13:43→14:21)
[2024-08-19 13:45] VITALS: TEMP 98.1
[2024-08-19] MEDS: DEXAMETHASONE SOD PHOSPHATE 4 MG/ML 1 ML VIAL IVP STA (13:52)
[2024-08-19] MEDS: FAMOTIDINE 20 MG/2 ML VIAL IV STA (13:53)
[2024-08-19] MEDS ORDERED: MIDAZOLAM 2 MG/2 ML VIAL ONE (14:31)
[2024-08-19] MEDS ORDERED: LIDOCAINE 1% INJ 10MG/ML (20 ML MDV) ONE (14:31)
[2024-08-19] MEDS ORDERED: PROPOFOL 10 MG/ML 20 ML VIAL IV ONE (14:31)
[2024-08-19] MEDS ORDERED: fentaNYL (PF) 50 MCG/ML 2 ML AMP ONE (14:31)
[2024-08-19] MEDS: SODIUM CHLORIDE 0.9% 50 ML with ceFAZolin 2 GM IV ONE (14:39)
[2024-08-19] MEDS: HEPARIN SODIUM,PORCINE 100 UNIT/ML 5 ML VIAL IV ONE (14:52)
[2024-08-19] MEDS: BUPIVACAINE (PF) 0.25% 30 ML VIAL SQ ONE ×2 (14:53→15:28)
--- NOTE | 2024-08-19 15:44 | P.PCN ---
Date of Procedure: 08/19/24 Preoperative Diagnosis: Lung cancer Postoperative Diagnosis: Lung cancer Procedure(s) Performed: Mediport placement Anesthesia: AUGUSTO Surgeon: Chay Phillips Pathology: none sent Condition: stable Disposition: same day Indications for Procedure: 59-year-old female with history of bilateral lung cancer with history of immunotherapy presents today for Mediport placement secondary to reinduction of immunotherapy. Patient is planning on this with her oncologist. Risks, benefits and alternatives were provided to the patient. All questions answered prior to attending the operating suite. Operative Findings: Appropriate flush and withdrawal from Mediport site Description of Procedure: The patient was brought to the operating suite and placed in supine position on the operating table. Sedation was provided by anesthesia and the patient underwent LMA placement. Local anesthetic was administered and subclavian vein was accessed on first attempt. Dark nonpulsatile blood was withdrawn. Guidewire was placed and confirmed under fluoroscopy. Pocket was then created and hemostasis was noted to be maintained. Then under fluoroscopy the dilator sheath was placed over the guidewire and catheter was placed. Catheter was attached to the port and placed in the pocket and noted to fit appropriately. Appropriate flush and withdrawal was noted while using normal saline flush. The port was then secured to the prepectoralis fascia using 2-0 Prolene suture. Heparin lock was administered and appropriate flush and withdrawal was noted. The wound was then closed with 3 oh then 4-0 Monocryl suture. Final image was taken and noted to be in appropriate position without any kinking of the catheter. Patient was brought to the postanesthesia care unit in stable condition with pending chest x-ray.
[2024-08-19] MEDS: HYDROmorphone 0.5 MG/0.5 ML SYRINGE IVP PRN (16:14)
--- NOTE | 2024-08-19 16:42 | XR ---
EXAMINATION TYPE: XR chest 1V portable DATE OF EXAM: 08/19/2024 COMPARISON: 03/28/2024 HISTORY: Mediport catheter placement TECHNIQUE: Single frontal view of the chest is obtained. FINDINGS: There is been interval placement of a Mediport catheter tip of which is in the SVC/RA junc tion. There is marked volume loss in the right lung with shift of the midline structures to the right. The pleura is markedly thickened consistent with pleural mass or loculated pleural effusion. The left lung is clear. The pulmonary vasculature is not congested within the left lung. IMPRESSION: 1. Mediport catheter tip in the SVC/RA junction. 2. Marked cardiopulmonary disease in the right hemithorax as described above. [facility], Workstation: MARIA L, 08/19/2024 4:40 PM
[2024-08-19 17:16] VITALS: RESP 16
[2024-08-19 17:35] VITALS: BP 169/89; PULSE 107
--- NOTE | 2024-08-19 22:21 | FL ---
EXAMINATION TYPE: FL guided central line placement DATE OF EXAM: 08/19/2024 FLUOROSCOPY Mediport insertion for lung cancer. FL time 18.2 seconds. DAP [id number]. [id number] image sent into PACS. Dr Phillips. [facility], , 08/19/2024 10:19 PM
== END 2024-08-19 18:00 | disposition home or self-care (01) ==
LOC: OR 12:53
PROVIDERS: ATTEND Surgery
CPT/HCPCS: 71045; 77001

== ENCOUNTER 2024-10-17 19:19 | Observation (INO) | payer OTHER ==
[2024-10-17 20:22] LABS: Anisocytosis Slight; Basophils % (A) 1 %; Eosinophils # (A) 0.2 k/uL (0-0.7); Eosinophils % (A) 2 %; HCT 31.7 % (34.0-46.0); HGB 10.1 gm/dL (11.4-16.0); Hypochromasia Marked; Lymphocytes # (A) 1.6 k/uL (1.0-4.8); Lymphocytes % (A) 19 %; MCH 28.2 pg (25.0-35.0); MCHC 31.8 g/dL (31.0-37.0); MCV 88.9 fL (80.0-100.0); Mean Platelet Volume 7.5; Monocytes # (A) 0.5 k/uL (0-1.0); Monocytes % (A) 5 %; Neutrophils # (A) 6.1 k/uL (1.3-7.7); Neutrophils % (A) 71 %; Platelet Count 355 k/uL (150-450); RBC 3.56 m/uL (3.80-5.40); RDW 16.4 % (11.5-15.5); WBC 8.5 k/uL (3.8-10.6)
[2024-10-17 20:35] LABS: ALT 12 U/L (4-34); AST 22 U/L (14-36); African American GFR (CKD) >90 (>60 ml/min/1.73 sqM); Albumin 3.3 g/dL (3.5-5.0); Alkaline Phosphatase 96 U/L (38-126); Anion Gap 6 mmol/L; Blood Urea Nitrogen 15 mg/dL (7-17); Calcium 8.8 mg/dL (8.4-10.2); Carbon Dioxide 31 mmol/L (22-30); Chloride 98 mmol/L (98-107); Glucose 96 mg/dL (74-99); Non-African American GFR(CKD) >90 (>60 ml/min/1.73 sqM); Potassium 3.8 mmol/L (3.5-5.1); Sodium 135 mmol/L (137-145); Total Bilirubin 0.3 mg/dL (0.2-1.3); Total Protein 5.9 g/dL (6.3-8.2)
[2024-10-17 20:37] LABS: INR 1.1 (<1.2); Partial Thromboplastin Time 22.4 sec (22.0-30.0); Prothrombin Time 11.7 sec (10.0-12.5)
--- NOTE | 2024-10-17 20:38 | ED ---
General Adult HPI - General Chief complaint: Shortness of Breath Stated complaint: DANIEL Time Seen by Provider: 10/17/24 20:00 Source: patient Mode of arrival: wheelchair Limitations: no limitations - History of Present Illness Initial comments: Pleasant 59-year-old female with a history of metastatic lung cancer who presents the ER today with complaint of worsening shortness of breath. Patient reports she just feels like she cannot catch her breath she has pressure in her chest. Patient denies any fever or productive cough. No known sick contacts. No nausea or vomiting. Patient has supplemental oxygen she can use as needed at home but states that over the past 2 days if she is not wearing her oxygen she feels very short of breath. - Related Data Home Medications Medication Instructions Recorded Confirmed Albuterol Inhaler [Ventolin Hfa 2 puff INHALATION RT-Q6H PRN 09/17/19 08/19/24 Inhaler] Cetirizine HCl [Zyrtec] 10 mg PO DAILY 06/21/22 08/19/24 Omeprazole Magnesium [PriLOSEC OTC] 20 mg PO DAILY 06/21/22 08/19/24 Budesonide-Formot 160-4.5 Mcg 2 puff INHALATION RT-BID 02/28/23 08/19/24 [Symbicort 160-4.5 Mcg Inhaler] Gabapentin [Neurontin] 300 mg PO TID 02/28/23 08/19/24 Sennosides/Docusate Sodium [Senna 1 cap PO BID PRN 02/28/23 08/19/24 Plus 8.6-50 mg Softgel] fentaNYL 25MCG/HR PATCH [Duragesic 1 patch TRANSDERM Q72H 08/15/23 08/19/24 25MCG/HR] Folic Acid 1 mg PO DAILY 01/05/24 08/19/24 HYDROcodone/APAP 10-325MG [[place] 1 tab PO Q6HR PRN 01/05/24 08/19/24 10-325] Lidocaine/Menthol [Asperflex Max 1 patch TRANSDERM DAILY PRN 01/05/24 08/19/24 4%-1% Patch] Linaclotide [Linzess] 145 mcg PO DAILY PRN 01/05/24 08/19/24 Ondansetron Odt [Zofran ODT] 8 mg PO Q6H PRN 01/05/24 08/19/24 Previous Rx's Medication Instructions Recorded Apixaban [Eliquis] 5 mg PO BID 30 Days #60 tab 06/24/22 Ipratropium-Albuterol Nebulize 3 ml INHALATION RT-QID 30 Days 06/24/22 [Duoneb 0.5 mg-3 mg/3 ml Soln] #300 ml guaiFENesin [Mucinex] 600 mg PO Q12HR PRN #30 tab 01/08/24 HYDROcodone/APAP 5-325MG [[place] 1 tab PO Q6HR PRN 3 Days #10 tab 08/19/24 5-325] Allergies Allergy/AdvReac Type Severity Reaction Status Date / Time sulfamethoxazole Allergy Rash/Hives Verified 10/17/24 19:45 [From Bactrim] trimethoprim [From Bactrim] Allergy Rash/Hives Verified 10/17/24 19:45 Review of Systems ROS Statement: Those systems with pertinent positive or pertinent negative responses have been documented in the HPI. ROS Other: All systems not noted in ROS Statement are negative. Past Medical History Past Medical History: Cancer, COPD, GERD/Reflux, Hyperlipidemia, Pulmonary Embolus (PE) Additional Past Medical History / Comment(s): Current back and rib cancer. Ovarian cyst. Hx lung cancer 2018 w/wedge resection left upper lobe Oct 2019, hx PE 06/21/22, right lower lobe resection for lung cancer February 2020, had 4 rounds of chemo after that and was cancer free until February 2023. Started immunotherapy and chemotherapy and was in her third treatment and had a reaction at the infusion where she felt like there was a weight on her chest and she couldn't breathe, then chemo was put on hold. History of Any Multi-Drug Resistant Organisms: None Reported Past Surgical History: Orthopedic Surgery, Tonsillectomy Additional Past Surgical History / Comment(s): Right hand surgery, ectopic surgery, lung resection of left upper lobe and right lower lobe, 1994 had lymph nodes removed from right armpit. Past Anesthesia/Blood Transfusion Reactions: Motion Sickness Additional Past Anesthesia/Blood Transfusion Reaction / Comment(s): motion sickness in the car Past Psychological History: No Psychological Hx Reported Smoking Status: Former smoker - Past Family History Father Family Medical History: Cancer Mother Family Medical History: Cancer, Deep Vein Thrombosis (DVT), Pulmonary Embolus General Exam - General Exam Comments Initial Comments: Physical Exam GENERAL: Chronically ill-appearing HENT: Normocephalic, Atraumatic. EYES: PERRL, EOMI PULMONARY: Clear breath sounds on the left No breath sounds on the right CARDIOVASCULAR: There is a regular rate and rhythm without any murmurs gallops or rubs. ABDOMEN: Soft and nontender with normal bowel sounds. SKIN: Pale, sallow : Deferred NEUROLOGIC: Patient is alert and oriented x3. Moving all extremities spontaneously MUSCULOSKELETAL: 1+ lower extremity edema right slightly worse than left PSYCHIATRIC: Normal psychiatric evaluation. Limitations: no limitations Course Vital Signs 10/17/24 10/18/24 19:40 00:44 Temperature 98.4 F Pulse Rate 114 H 106 H Respiratory 18 18 Rate Blood Pressure 143/83 150/88 O2 Sat by Pulse 93 L 100 Oximetry EKG Findings - EKG Comments: EKG Findings:: EKG interpreted by me, EKG obtained due to complaint of shortness of breath and tachycardia EKG obtained at 1956 rate is 111 rhythm is sinus tach, FL 160 QRS 83 QTc [address] elevations or depressions no evidence of acute ischemia, infarction or pathologic arrhythmia. Medical Decision Making - Medical Decision Making Was pt. sent in by a medical professional or institution (, PA, EXPORT ADMINISTRATOR, urgent care, hospital, or [facility]...) When possible be specific @ -No Did you speak to anyone other than the patient for history (EMS, parent, family, police, friend...)? What history was obtained from this source @ -Yes, family Did you review nursing and triage notes (agree or disagree)? Why? @ -I reviewed and agree with nursing and triage notes Were old charts reviewed (outside hosp., previous admission, EMS record, old EKG, old radiological studies, urgent care reports/EKG's, [facility] records)? Report findings @ -Yes, previous chest x-rays were reviewed Differential Diagnosis (chest pain, altered mental status, abdominal pain women, abdominal pain men, vaginal bleeding, weakness, fever, dyspnea, syncope, headache, dizziness, GI bleed, back pain, seizure, CVA, palpatations, mental health)? @ -Differential Dyspnea: Coronary syndrome, arrhythmia, tamponade, asthma, COPD, pulmonary embolism, pneumonia, pneumothorax, pulmonary effusion, anaphylaxis, diabetic ketoacidosis, flailed chest, pulmonary contusion, diaphragmatic rupture, anemia, neuromuscular, this is not meant to be an all-inclusive list. EKG interpreted by me (3pts min.). @ -As above X-rays interpreted by me (1pt min.). @ -Large mass and effusion on the right, clear lungs on the left CT interpreted by me (1pt min.). @ -None done U/S interpreted by me (1pt. min.). @ -None done What testing was considered but not performed or refused? (CT, X-rays, U/S, labs)? Why? @ -CT was discussed but considering there is no change from previous chest x-ray was not ordered in the ER What meds were considered but not given or refused? Why? @ -None Did you discuss the management of the patient with other professionals (professionals i.e. , PA, EXPORT ADMINISTRATOR, lab, RT, psych nurse, social insurance adviser, road inspector, teacher, fare enforcement officer, case worker)? Give summary @ -No Was smoking cessation discussed for >3mins.? @ -No Was critical care preformed (if so, how long)? @ -No Were there social determinants of health that impacted care today? How? (Homelessness, low income, unemployed, alcoholism, drug addiction, transportation, low edu. Level, literacy, decrease access to med. care, longterm, rehab)? @ -No Was there de-escalation of care discussed even if they declined (Discuss DNR or withdrawal of care, Hospice)? DNR status @ -No What co-morbidities impacted this encounter? (DM, HTN, Smoking, COPD, CAD, Cancer, CVA, ARF, Chemo, Hep., AIDS, mental health diagnosis, sleep apnea, morbid obesity)? @ -Lung cancer Was patient admitted / discharged? Hospital course, mention meds given and route, prescriptions, significant lab abnormalities, going to OR and other pertinent info. @ -Admit The patient was seen and evaluated, patient with known lung cancer presenting with worsening shortness of breath. Patient is on Eliquis. Labs and chest x- ray were obtained, labs at baseline, chest x-ray unchanged from previous. Patient was treated with Dilaudid here in the ER for her chronic chest and back pain from her lung cancer. Patient complaining of worsening shortness of breath would like to be hospitalized for further evaluation possibly meeting with pulmo loclogy. Patient is requiring 3 L of oxygen. Patient care discussed with Dr. Lama who agrees with plan for admission. Undiagnosed new problem with uncertain prognosis? @ -No Drug Therapy requiring intensive monitoring for toxicity (Heparin, Nitro, Insulin, Cardizem)? @ -No Were any procedures done? @ -No Diagnosis/symptom? @ -Cancer pain, dyspnea, metastatic lung cancer Acute, or Chronic, or Acute on Chronic? @ -Default Uncomplicated (without systemic symptoms) or Complicated (systemic symptoms)? @ -Default Side effects of treatment? @ -No Exacerbation, Progression, or Severe Exacerbation? @ -No Poses a threat to life or bodily function? How? (Chest pain, [place], ME, pneumonia, PE, COPD, DKA, ARF, appy, cholecystitis, CVA, Diverticulitis, Homicidal, Suicidal, threat to staff... and all critical care pts) @ -Potentially yes - Lab Data Result diagrams: 10/17/24 20:12 10/17/24 20:12 Lab Results 10/17/24 10/17/24 10/17/24 Range/Units 20:01 20:12 20:12 WBC 8.5 (3.8-10.6) k/uL RBC 3.56 L (3.80-5.40) m/uL Hgb 10.1 L (11.4-16.0) gm/dL Hct 31.7 L (34.0-46.0) % MCV 88.9 (80.0-100.0) fL MCH 28.2 (25.0-35.0) pg MCHC 31.8 (31.0-37.0) g/dL RDW 16.4 H (11.5-15.5) % Plt Count 355 (150-450) k/uL MPV 7.5 Neutrophils % 71 % Lymphocytes % 19 % Monocytes % 5 % Eosinophils % 2 % Basophils % 1 % Neutrophils # 6.1 (1.3-7.7) k/uL Lymphocytes # 1.6 (1.0-4.8) k/uL Monocytes # 0.5 (0-1.0) k/uL Eosinophils # 0.2 (0-0.7) k/uL Basophils # 0.0 (0-0.2) k/uL Hypochromasia Marked Anisocytosis Slight PT 11.7 (10.0-12.5) sec INR 1.1 (<1.2) APTT 22.4 (22.0-30.0) sec Sodium (137-145) mmol/L Potassium (3.5-5.1) mmol/L Chloride (98-107) mmol/L Carbon Dioxide (22-30) mmol/L Anion Gap mmol/L BUN (7-17) mg/dL Creatinine (0.52-1.04) mg/dL Est GFR (CKD-EPI)AfAm (>60 ml/min/1.73 sqM) Est GFR (CKD-EPI)NonAf (>60 ml/min/1.73 sqM) Glucose (74-99) mg/dL Plasma Lactic Acid [place]win (0.7-2.0) mmol/L Calcium (8.4-10.2) mg/dL Total Bilirubin (0.2-1.3) mg/dL AST (14-36) U/L ALT (4-34) U/L Alkaline Phosphatase (38-126) U/L Troponin I (0.000-0.034) ng/mL NT-Pro-B Natriuret Pep pg/mL Total Protein (6.3-8.2) g/dL Albumin (3.5-5.0) g/dL Influenza Type A (PCR) Not Detected (Not Detectd) Influenza Type B (PCR) Not Detected (Not Detectd) RSV (PCR) Not Detected (Not Detectd) SARS-CoV-2 (PCR) Not Detected (Not Detectd) 10/17/24 10/17/24 10/17/24 Range/Units 20:12 20:12 20:12 WBC (3.8-10.6) k/uL RBC (3.80-5.40) m/uL Hgb (11.4-16.0) gm/dL Hct (34.0-46.0) % MCV (80.0-100.0) fL MCH (25.0-35.0) pg MCHC (31.0-37.0) g/dL RDW (11.5-15.5) % Plt Count (150-450) k/uL MPV Neutrophils % % Lymphocytes % % Monocytes % % Eosinophils % % Basophils % % Neutrophils # (1.3-7.7) k/uL Lymphocytes # (1.0-4.8) k/uL Monocytes # (0-1.0) k/uL Eosinophils # (0-0.7) k/uL Basophils # (0-0.2) k/uL Hypochromasia Anisocytosis PT (10.0-12.5) sec INR (<1.2) APTT (22.0-30.0) sec Sodium 135 L (137-145) mmol/L Potassium 3.8 (3.5-5.1) mmol/L Chloride 98 (98-107) mmol/L Carbon Dioxide 31 H (22-30) mmol/L Anion Gap 6 mmol/L BUN 15 (7-17) mg/dL Creatinine 0.71 (0.52-1.04) mg/dL Est GFR (CKD-EPI)AfAm >90 (>60 ml/min/1.73 sqM) Est GFR (CKD-EPI)NonAf >90 (>60 ml/min/1.73 sqM) Glucose 96 (74-99) mg/dL Plasma Lactic Acid [place] 0.8 (0.7-2.0) mmol/L Calcium 8.8 (8.4-10.2) mg/dL Total Bilirubin 0.3 (0.2-1.3) mg/dL AST 22 (14-36) U/L ALT 12 (4-34) U/L Alkaline Phosphatase 96 (38-126) U/L Troponin I <0.012 (0.000-0.034) ng/mL NT-Pro-B Natriuret Pep 157 pg/mL Total Protein 5.9 L (6.3-8.2) g/dL Albumin 3.3 L (3.5-5.0) g/dL Influenza Type A (PCR) (Not Detectd) Influenza Type B (PCR) (Not Detectd) RSV (PCR) (Not Detectd) SARS-CoV-2 (PCR) (Not Detectd) Disposition Clinical Impression: Right lower lobe lung mass, Dyspnea, Pleural effusion Disposition: ADMITTED IP TO [facility] Condition: Stable Is patient prescribed a controlled substance at d/c from ED?: No
[2024-10-17 20:44] LABS: NT-Pro-B-Type Natriuretic Pept 157 pg/mL
--- NOTE | 2024-10-17 22:34 | US ---
EXAMINATION TYPE: US venous doppler duplex LE RT DATE OF EXAM: 10/17/2024 10:17 PM COMPARISON: XR today, BLE ultrasound 09/12/22 CLINICAL INDICATION: Female, 59 years old with history of edema, cancer hx of clots; Patient states h x DVT. On eliquis. Cancer, Pain TECHNIQUE: The lower extremity deep venous system is examined utilizing real time linear array sonog piper with graded compression, color doppler sonography, and spectral doppler. SIDE PERFORMED: Right FINDINGS: VESSELS IMAGED: Common Femoral Vein Deep Femoral Vein Greater Saphenous Vein * Femoral Vein Popliteal Vein Small Saphenous Vein * Proximal Calf Veins (* superficial vessels) Right Leg: Negative for DVT, Color Doppler imaging shows patency of the vessels. Spectral waveforms are within normal limits. IMPRESSION: 1. No evidence of deep vein thrombosis of the right lower extremity. [facility], , 10/17/2024 10:31 PM
--- NOTE | 2024-10-17 23:55 | XR ---
EXAMINATION TYPE: XR chest 2V DATE OF EXAM: 10/17/2024 9:30 PM CLINICAL INDICATION:Female, 59 years old with history of difficulty breathing; H COMPARISON: Chest radiographs from 08/19/2024. TECHNIQUE: XR chest 2V Frontal view of the chest. FINDINGS: Patient is significantly rotated on exam. There is similar notable volume loss involving the right lung with similar midline shift of structure s to the right. The pleura demonstrates is similar thickened appearance with only minimal aeration of the upper right lung zone appreciated. The left lung is essentially clear with surgical suture/scarr ing appreciated in the left upper lobe. The cardiac silhouette is partially obscured. No acute osseou s abnormalities appreciated. Lines/Tubes: [id number] projecting over the right hemithorax with distal tip at the cavoatrial junction. IMPRESSION: Essentially stable appearance of volume loss involving the right lung and midline shift towards the r ight secondary to underlying known disease and postsurgical changes. There is minimal aeration involv ing the right lung. The left lung is overall clear. Right sided Wdralw-l-Fadv catheter is seen in sta ble position. [facility], , 10/17/2024 11:52 PM
[2024-10-18] MEDS: HYDROmorphone 0.5 MG/0.5 ML SYRINGE IVP STA (00:49)
[2024-10-18] MEDS: ONDANSETRON 4 MG/2 ML VIAL IVP STA (00:49)
[2024-10-18] MEDS ORDERED: NALOXONE 0.4 MG/ML 1 ML VIAL IV PRN (00:50)
[2024-10-18] MEDS: HYDROmorphone 0.5 MG/0.5 ML SYRINGE IVP PRN (04:04)
--- NOTE | 2024-10-18 04:33 | P.HPIM ---
History of Present Illness H&P Date: 10/18/24 Chief Complaint: Shortness of breath Patient is a 59-year-old female with past medical history of COPD with occasional use of oxygen at home on 2 L/min, GERD, hyperlipidemia, history of pulmonary embolism, history of lung cancer with metastasis to her back and right ribs currently on immunotherapy Opdivo presented to the emergency room with shortness of breath. Patient reports that shortness of breath started on Monday while the patient was resting. Patient has been compliant with inhaler treatment at home including Symbicort, DuoNeb, albuterol as needed. Patient reports feeling short winded after getting up and walking for a short distance. She currently endorses feeling shortness of breath while resting in hospital bed. Patient also felt a chest tightness sensation earlier last night. However she reports that this does not feel like a typical MS. She does use oxygen at home intermittently with a setting of 2 L/min. Patient denies any recent sick contacts. Patient's last echo was from October 2023 at [facility] which showed ejection fraction of 55 to 60%, normal right ventricle and left ventricle size. Patient currently endorses shortness of breath, nausea, chest tightness sensation, constipation, and right lower extremity swelling. Denies chest pain, vomiting, belly pain, fever, chills, dysuria, numbness or tingling sensation in upper or lower extremities. ED documentation reviewed. In the ED patient was treated with Dilaudid 0.5 mg IV x 1, Zofran 4 mg IV x 1. Vitals on admission temperature 98.4, heart rate 106, blood pressure 150/88, respiratory rate 18, saturating at 100% on nasal cannula 2 L/min EKG independently interpreted as sinus tachycardia with ventricular rate of 111 bpm, QTc interval of 375 ms, possible left atrial enlargement, possible right ventricular conduction delay CXR shows essentially stable appearance of volume loss involving the right lung and midline shift towards the right secondary to underlying known disease and postsurgical changes. There is minimal aeration involving the right lung. The left lung is overall clear. Right-sided infuse a port catheter is seen in stable position. Venous Doppler ultrasound of right lower extremity shows no evidence of DVT Labs on admission show WBC 8.5, hemoglobin 10.1, hematocrit 31.7, platelets 355, PT 11.7, PTT 22.4, INR 1.1, sodium 135, potassium 3.8, chloride 98, carbon dioxide 31, BUN 15, creatinine 0.71, glucose 96, lactic acid 0.8, troponin less than 0.012, BNP 157 Review of systems: Pertinent positives and negatives as discussed in HPI, a complete review of systems was performed and all other systems are negative. PMH: COPD, GERD, hyperlipidemia, history of pulmonary embolism, history of lung cancer with metastasis to her back and right ribs presented to the emergency room with shortness of breath. PSH: Orthopedic surgery, tonsillectomy, right hand surgery, ectopic s urgery, lung resection of left upper lobe and right lower lobe, 1993 had lymph nodes removed from right armpit FMH: Mother has a history of DVT and pulmonary embolus, both mother and father have history of cancer Allergies: Sulfamethoxazole, trimethoprim Social history: Tobacco: Former smoker Alcohol: No alcohol use Recreational drugs: No drug use Travel: No recent travel history Sick contacts: No sick contacts Physical examination: Vital signs reviewed General: nontoxic, no distress, appears at stated age, well-appearing Derm: warm, dry, intact Head: atraumatic, normocephalic, symmetric Eyes: EOMI, anicteric sclera Mouth: no lip lesion, mucus membranes moist Cardiovascular: S1 S2 reg, no murmur, R sided chest chemo-port noted without surrounding abnormalities Lungs: CTA bilateral, no rhonchi, no rales, no accessory muscle use Abdominal: soft, non-tender to palpation Extremities: No cyanosis, clubbing, trace edema noted in the right lower extremity with no erythema, nontender to palpation Neuro: Alert, Oriented to time, person, place, Gross neurological examination did not reveal any focal deficits. Cranial nerves II to XII grossly intact. Bilateral upper and lower extremity muscle strength intact 5 out of 5. Bilateral upper and lower extremity sensation intact. Psych: appropriate affect Assessment/Plan: 59-year-old female with past medical history of COPD, GERD, hyperlipidemia, history of pulmonary embolism, history of lung cancer with metastasis to her back right ribs who presented to the emergency room with shortness of breath. Patient will be admitted to inpatient medicine service. Active: #. Acute hypoxic respiratory failure secondary to COPD exacerbation, in setting of lung malignancy with metastasis Supplemental oxygen DuoNeb qid RTC and prn Solu-Medrol 500 mg IV every 8 hours Cardiac monitoring Fall precautions Obtain D-dimer to rule out PE as patient did have tachycardia and low O2 saturation and chest tightness sensation in the beginning Consult pulmonary medicine and oncology #. Mild hyponatremia Sodium 135 Continue normal saline at 75 cc an hour Morning CMP #. Normocytic anemia Hemoglobin 10.1, MCV 88.9 Monitor morning CBC #. Right lower extremity swelling Obtain D-dimer Venous Doppler ultrasound of right lower extremity Chronic: #. GERD Restart omeprazole 20 mg daily F: No restrictions E: Replete as needed N: Regular diet A: In wheelchair DVT prophylaxis: Lovenox 40 mg subcu daily The patient is admitted with an anticipated more than 2 midnight stay for evaluation of acute COPD exacerbation CODE STATUS: Full code Discussed with: Patient Anticipated discharge place: Home Past Medical History Past Medical History: Cancer, COPD, GERD/Reflux, Hyperlipidemia, Pulmonary Embolus (PE) Additional Past Medical History / Comment(s): Current back and rib cancer. Ovarian cyst. Hx lung cancer 2018 w/wedge resection left upper lobe Oct 2019, hx PE 06/21/22, right lower lobe resection for lung cancer February 2020, had 4 rounds of chemo after that and was cancer free until February 2023. Started immunotherapy and chemotherapy and was in her third treatment and had a reaction at the infusion where she felt like there was a weight on her chest and she couldn't breathe, then chemo was put on hold. History of Any Multi-Drug Resistant Organisms: None Reported Past Surgical History: Orthopedic Surgery, Tonsillectomy Additional Past Surgical History / Comment(s): Right hand surgery, ectopic surgery, lung resection of left upper lobe and right lower lobe, 1994 had lymph nodes removed from right armpit. Past Anesthesia/Blood Transfusion Reactions: Motion Sickness Additional Past Anesthesia/Blood Transfusion Reaction / Comment(s): motion sickness in the car Past Psychological History: No Psychological Hx Reported Smoking Status: Former smoker - Past Family History Father Family Medical History: Cancer Mother Family Medical History: Cancer, Deep Vein Thrombosis (DVT), Pulmonary Embolus Medications and Allergies Home Medications Medication Instructions Recorded Confirmed Type Albuterol Inhaler [Ventolin Hfa 2 puff INHALATION RT-Q6H PRN 09/17/19 08/19/24 History Inhaler] Cetirizine HCl [Zyrtec] 10 mg PO DAILY 06/21/22 08/19/24 History Omeprazole Magnesium [PriLOSEC OTC] 20 mg PO DAILY 06/21/22 08/19/24 History Apixaban [Eliquis] 5 mg PO BID 30 Days #60 tab 06/24/22 08/19/24 Rx Ipratropium-Albuterol Nebulize 3 ml INHALATION RT-QID 30 Days 06/24/22 08/19/24 Rx [Duoneb 0.5 mg-3 mg/3 ml Soln] #300 ml Budesonide-Formot 160-4.5 Mcg 2 puff INHALATION RT-BID 02/28/23 08/19/24 History [Symbicort 160-4.5 Mcg Inhaler] Gabapentin [Neurontin] 300 mg PO TID 02/28/23 08/19/24 History Sennosides/Docusate Sodium [Senna 1 cap PO BID PRN 02/28/23 08/19/24 History Plus 8.6-50 mg Softgel] fentaNYL 25MCG/HR PATCH [Duragesic 1 patch TRANSDERM Q72H 08/15/23 08/19/24 History 25MCG/HR] Folic Acid 1 mg PO DAILY 01/05/24 08/19/24 History HYDROcodone/APAP 10-325MG [[place] 1 tab PO Q6HR PRN 01/05/24 08/19/24 History 10-325] Lidocaine/Menthol [Asperflex Max 1 patch TRANSDERM DAILY PRN 01/05/24 08/19/24 History 4%-1% Patch] Linaclotide [Linzess] 145 mcg PO DAILY PRN 01/05/24 08/19/24 History Ondansetron Odt [Zofran ODT] 8 mg PO Q6H PRN 01/05/24 08/19/24 History guaiFENesin [Mucinex] 600 mg PO Q12HR PRN #30 tab 01/08/24 08/19/24 Rx HYDROcodone/APAP 5-325MG [[place] 1 tab PO Q6HR PRN 3 Days #10 tab 08/19/24 Rx 5-325] Allergies Allergy/AdvReac Type Severity Reaction Status Date / Time sulfamethoxazole Allergy Rash/Hives Verified 10/17/24 19:45 [From Bactrim] trimethoprim [From Bactrim] Allergy Rash/Hives Verified 10/17/24 19:45 Physical Exam Vitals: Vital Signs Temp Pulse Resp BP Pulse Ox 10/18/24 00:44 106 H 18 150/88 100 10/17/24 19:40 98.4 F 114 H 18 143/83 93 L Intake and Output 10/17/24 10/17/24 10/18/24 14:59 22:59 06:59 Other: Weight 51.256 kg Results CBC & Chem 7: 10/17/24 20:12 10/17/24 20:12 Labs: Abnormal Lab Results - Last 24 Hours (Table) 10/17/24 10/17/24 Range/Units 20:12 20:12 RBC 3.56 L (3.80-5.40) m/uL Hgb 10.1 L (11.4-16.0) gm/dL Hct 31.7 L (34.0-46.0) % RDW 16.4 H (11.5-15.5) % Sodium 135 L (137-145) mmol/L Carbon Dioxide 31 H (22-30) mmol/L Total Protein 5.9 L (6.3-8.2) g/dL Albumin 3.3 L (3.5-5.0) g/dL
[2024-10-18] MEDS ORDERED: IPRATROPIUM-ALBUTEROL 3 ML NEB INHALATION PRN (05:03)
[2024-10-18] MEDS: methylPREDNISolone SOD SUCCI 125 MG/2 ML VIAL IV SCH (06:16)
[2024-10-18] MEDS: HYDROcodone/APAP 10-325MG 1 EACH TAB PO PRN (06:16)
[2024-10-18] MEDS: SODIUM CHLORIDE 0.9% 1,000 ML IV SCH (06:17)
--- NOTE | 2024-10-18 06:47 | P.CNPUL ---
History of Present Illness Consult date: 10/18/24 Requesting physician: Samir Hurst Chief complaint: Shortness of breath, pain History of present illness: 58-year-old female patient with a known history of chronic obstructive pulmonary disease with FEV1 value 32% of predicted, [id number] smoking history, pulmonary embolism anticoagulated with Eliquis. She does follow in the pulmonary office with Dr. Adams. She has a known history of lung cancer originally diagnosed with wedge resection of the left upper lobe October 2019, as well as, a right lung resection in February 2021. A follow-up PET scan in February 2023 indicating possible disease recurrence. 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 Her established oncologist is Dr. Castlilo. Previously maintained on chemotherapy with Alimta and cisplatin. Most recent available PET scan taken on 07/25/2024 showing overall mixed response to therapy with slightly increased radiotracer activity throughout the right pleural and anterior right seventh rib with mild decrease in radiotracer activity within the right 10th rib and posterior costophrenic pleural region. Development of nonspecific left anterior peritoneal stranding changes with mild FDG uptake, could represent early peritoneal metastasis versus other etiologies such as infectious/inflammatory nature. Currently on Opdivo tr eatments, she has had 2 infusions so far. Presented to emergency department last night complaining of progressively worsening shortness of breath over the last couple days. Denies sick contacts. Denies any infectious-like symptoms such as fevers, chills, cough, sputum production, hemoptysis, chest pain. 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 She has supplemental oxygen that she occasionally uses as needed, and she has required this over the last 2 days. Also noted some right unilateral right leg swelling. Venous Doppler was negative for DVT. She does have history of pulmonary embolism that is chronically anticoagulated on Eliquis. CBC: WBC count 8.5, hemoglobin 10.1, hematocrit 31.7, platelets 355. CMP: Sodium 135, potassium 3.8, chloride 98, serum bicarb 31, BUN 15, creatinine 0.71, glucose 96. Lactic 0.8. Troponin less than 0.012. NT proBNP 157. Normal saline infusing at 75 mL/h. Chest x-ray: Essentially stable appearance of volume loss involving the right lung and midline shift towards the right secondary to under lying known malignancy. Minimal aeration of the right upper lung. Left lung is overall clear. Negative for influenza, RSV, COVID. Is currently being evaluated the emergency department. She is not in any respiratory distress. Nontachypneic. Her main complaint at this time is pain mostly involving her right lateral chest and lumbar spine. She has known osseous mets. Current vitals: Temperature 98.4 F, heart rate 106 bpm, blood pressure 150/88 mmHg, SpO2 100%, on 2 L/min nasal cannula. Review of Systems Constitutional: Reports fatigue, Reports poor appetite, Reports weight loss, Denies chills, Denies fever, Denies weight gain Ears, nose, mouth and throat: Denies headache, Denies nasal congestion, Denies nasal discharge, Denies post-nasal drip, Denies sinus pain, Denies sinus pressure, Denies sore throat Cardiovascular: Reports leg edema, Denies chest pain, Denies irregular heart beat, Denies orthopnea, Denies palpitations, Denies paroxysmal nocturnal dyspnea, Denies syncope Respiratory: Reports dyspnea, Reports home oxygen, Denies congestion, Denies cough, Denies cough with sputum, Denies hemoptysis, Denies wheezing Gastrointestinal: Reports constipation, Denies abdominal pain, Denies diarrhea, Denies hematemesis, Denies hematochezia, Denies melena, Denies nausea, Denies vomiting Genitourinary: Denies dysuria Musculoskeletal: Denies limitation of motion Integumentary: Denies rash, Denies sores Neurological: Denies seizures, Denies syncope Psychiatric: Denies anxiety, Denies depression Past Medical History Past Medical History: Cancer, COPD, GERD/Reflux, Hyperlipidemia, Pulmonary Embolus (PE) Additional Past Medical History / Comment(s): Current back and rib cancer. Ovarian cyst. Hx lung cancer 2018 w/wedge resection left upper lobe Oct 2019, hx PE 06/21/22, right lower lobe resection for lung cancer February 2020, had 4 rounds of chemo after that and was cancer free until February 2023. Started immunotherapy and chemotherapy and was in her third treatment and had a reaction at the infusion where she felt like there was a weight on her chest and she couldn't breathe, then chemo was put on hold. History of Any Multi-Drug Resistant Organisms: None Reported Past Surgical History: Orthopedic Surgery, Tonsillectomy Additional Past Surgical History / Comment(s): Right hand surgery, ectopic surgery, lung resection of left upper lobe and right lower lobe, 1994 had lymph nodes removed from right armpit. Past Anesthesia/Blood Transfusion Reactions: Motion Sickness Additional Past Anesthesia/Blood Transfusion Reaction / Comment(s): motion sickness in the car Past Psychological History: No Psychological Hx Reported Smoking Status: Former smoker - Past Family History Father Family Medical History: Cancer Mother Family Medical History: Cancer, Deep Vein Thrombosis (DVT), Pulmonary Embolus Medications and Allergies Home Medications Medication Instructions Recorded Confirmed Type Albuterol Inhaler [Ventolin Hfa 2 puff INHALATION RT-Q6H PRN 09/17/19 08/19/24 History Inhaler] Cetirizine HCl [Zyrtec] 10 mg PO DAILY 06/21/22 08/19/24 History Omeprazole Magnesium [PriLOSEC OTC] 20 mg PO DAILY 06/21/22 08/19/24 History Apixaban [Eliquis] 5 mg PO BID 30 Days #60 tab 06/24/22 08/19/24 Rx Ipratropium-Albuterol Nebulize 3 ml INHALATION RT-QID 30 Days 06/24/22 08/19/24 Rx [Duoneb 0.5 mg-3 mg/3 ml Soln] #300 ml Budesonide-Formot 160-4.5 Mcg 2 puff INHALATION RT-BID 02/28/23 08/19/24 History [Symbicort 160-4.5 Mcg Inhaler] Gabapentin [Neurontin] 300 mg PO TID 02/28/23 08/19/24 History Sennosides/Docusate Sodium [Senna 1 cap PO BID PRN 02/28/23 08/19/24 History Plus 8.6-50 mg Softgel] fentaNYL 25MCG/HR PATCH [Duragesic 1 patch TRANSDERM Q72H 08/15/23 08/19/24 History 25MCG/HR] Folic Acid 1 mg PO DAILY 01/05/24 08/19/24 History HYDROcodone/APAP 10-325MG [Anthon 1 tab PO Q6HR PRN 01/05/24 08/19/24 History 10-325] Lidocaine/Menthol [Asperflex Max 1 patch TRANSDERM DAILY PRN 01/05/24 08/19/24 History 4%-1% Patch] Linaclotide [Linzess] 145 mcg PO DAILY PRN 01/05/24 08/19/24 History Ondansetron Odt [Zofran ODT] 8 mg PO Q6H PRN 01/05/24 08/19/24 History guaiFENesin [Mucinex] 600 mg PO Q12HR PRN #30 tab 01/08/24 08/19/24 Rx HYDROcodone/APAP 5-325MG [Anthon 1 tab PO Q6HR PRN 3 Days #10 tab 08/19/24 Rx 5-325] Allergies Allergy/AdvReac Type Severity Reaction Status Date / Time sulfamethoxazole Allergy Rash/Hives Verified 10/17/24 19:45 [From Bactrim] trimethoprim [From Bactrim] Allergy Rash/Hives Verified 10/17/24 19:45 Physical Exam Vitals: Vital Signs Temp Pulse Resp BP Pulse Ox 10/18/24 03:49 101 H 18 158/87 100 10/18/24 00:44 106 H 18 150/88 100 10/17/24 19:40 98.4 F 114 H 18 143/83 93 L Intake and Output 10/17/24 10/17/24 10/18/24 14:59 22:59 06:59 Other: Weight 51.256 kg GENERAL EXAM: Alert, 59-year-old white female, no signs of CO2 narcosis, fairly comfortable in no apparent distress. HEAD: Normocephalic and atraumatic EYES: Normal reaction of pupils, equal size. NOSE: Clear with pink turbinates. THROAT: No erythema or exudates. NECK: No masses, no JVD. CHEST: No chest wall deformity. Right chest Mediport LUNGS: Equal air entry with markedly diminished right lung sounds, right posterior upper lobe has inspiratory crackles. Left lung is clear to auscult ation. On 2 L/min nasal cannula. SpO2 100%. No conversational dyspnea or accessory muscle use.. CVS: S1 and S2 normal with no audible murmur, regular rhythm. No extra heart sounds ABDOMEN: No hepatosplenomegaly, active bowel sounds, no guarding or rigidity. SPINE: No scoliosis or deformity SKIN: No rashes CENTRAL NERVOUS SYSTEM: No focal deficits, tone is normal in all 4 extremities. EXTREMITIES: Bilateral lower extremity edema, right greater than left. No clubbing, or cyanosis. Peripheral pulses are intact. 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 Previously maintained on chemotherapy with Alimta and carboplatin, could not tolerate side effects. PET scan taken on 07/25/2024 showing overall mixed response to therapy with slightly increased radiotracer activity throughout the right pleural and anterior right seventh rib with mild decrease in radiotracer activity within the right 10th rib and posterior costophrenic pleural region. Development of nonspecific left anterior peritoneal stranding changes with mild FDG uptake, could represent early peritoneal metastasis versus other etiologies such as infectious/inflammatory nature. Currently on Opdivo, has received 2 infusions so far. Acute COPD exacerbation, Chest x-ray: Essentially stable appearance of volume loss involving the right lung and midline shift towards the right secondary to underlying known malignancy. Minimal aeration of the right upper lung. Left lung is overall clear. Negative for influenza, RSV, COVID. Acute dyspnea secondary to combination of above Acute on chronic hypoxemic respiratory failure,, currently on 2 L/min nasal cannula Chronic pain secondary to malignancy Severe chronic obstructive pulmonary disease, with an FEV1 31% of predicted Chronic hypoxemic respiratory failure, uses 2 L/min nasal cannula as needed at home Former tobacco smoker History of pulmonary embolism, chronically anticoagulated on Eliquis Normocytic, normochromic anemia, no acute blood loss noted Plan: Patient's medications, labs, imaging reviewed Continue supplemental oxygen to maintain oxygen saturation of 92% or greater Optimize lung function with combination of DuoNebs, Symbicort inhaler, and IV Solu-Medrol Resume analgesics for cancer pain Add stool softener Resume Eliquis GI prophylaxis: Protonix Oncology is consulted We will also continue to follow I have personally seen and examined the patient, performed the documentation and the assessment and plan as written. Number of minutes spent on the visit:20 This is a joint evaluation that was done along with the nurse practitioner. This evaluation was done more than 30 minutes. The patient was hospitalized for an acuity of exacerbation. She has a known history of non-small cell lung cancer/pulm adenocarcinoma involving the right lung and the patient is currently on Opdivo. Most recent PET/CT done on 07/25/2024 showed mixed response with some residual uptake along the right seventh and 10th rib and along the pleural surface. The patient has previous history of pulm embolism. The patient has been maintained on long-term anticoagulation with Eliquis. No significant sputum production. No significant chest pain. She is currently on a combination of Symbicort, DuoNeb updrafts and IV Solu-Medrol. Anticoagulation has been resumed. She is currently on 2 L of oxygen by nasal cannula. She will be admitted to the hospital for COPD exacerbation. She was started on IV Solu- Medrol 60 mg every 6 hours. She is also on IV fluids at normal saline at rate of 75 cc an hour. Home medications to be resumed. Time with Patient: Greater than 30
[2024-10-18] MEDS ORDERED: methylPREDNISolone SOD SUCCIN 500 MG in SODIUM CHLORIDE 0.9% 100 ML IVPB SCH (08:00)
[2024-10-18] MEDS: APIXABAN 5 MG TAB PO SCH (08:02)
[2024-10-18] MEDS: GABAPENTIN 300 MG CAP PO SCH (08:02)
[2024-10-18] MEDS: SENNOSIDES-DOCUSATE SODIUM 1 EACH TAB PO SCH (08:02)
[2024-10-18] MEDS: PANTOPRAZOLE 40 MG TABLET PO SCH (08:03)
[2024-10-18] MEDS: IPRATROPIUM-ALBUTEROL 3 ML NEB INHALATION SCH ×2 (08:59→16:05)
[2024-10-18] MEDS ORDERED: ENOXAPARIN 40 MG/0.4 ML SYRINGE SQ SCH (09:00)
[2024-10-18] MEDS: SYMBICORT 160-4.5 MCG INHALER INHALATION SCH (09:00)
[2024-10-18 10:35] LABS: Basophils # (A) 0.04 X 10*3/uL (0.00-0.10); Basophils % (A) 0.4 %; Eosinophils # (A) 0.19 X 10*3/uL (0.04-0.35); HCT 32.7 % (37.2-46.3); HGB 9.7 g/dL (12.0-15.0); Lymphocytes # (A) 1.91 X 10*3/uL (0.90-5.00); Lymphocytes % (A) 20.1 %; MCHC 29.7 g/dL (32.0-37.0); MCV 91.1 FL (80.0-97.0); Mean Platelet Volume 10.6 FL (9.5-12.2); Monocytes # (A) 0.83 X 10*3/uL (0.20-1.00); Monocytes % (A) 8.8 %; NRBC Per 100 WBC 0 X 10*3/uL (0.00-0.01); Neutrophils # (A) 6.48 X 10*3/uL (1.80-7.70); Neutrophils % (A) 68.4 %; Platelet Count 368 X 10*3/uL (140-440); RBC 3.59 X 10*6/uL (4.10-5.20); RDW 16.5 % (11.5-14.5); WBC 9.48 X 10*3/uL (4.50-10.00)
[2024-10-18 10:46] LABS: ALT 12 U/L (8-44); AST 21 U/L (13-35); Albumin 3.3 g/dL (3.8-4.9); Albumin/Globulin Ratio 1.43 Ratio (1.60-3.17); Alkaline Phosphatase 90 U/L (41-126); BUN/Creat Ratio 19.33 Ratio (12.00-20.00); Blood Urea Nitrogen 11.6 mg/dL (9.0-27.0); Calcium 8.7 mg/dL (8.7-10.3); Carbon Dioxide 30.8 mmol/L (21.6-31.8); Chloride 100 mmol/L (96-109); Globulin 2.3 g/dL (1.6-3.3); Glucose 96 mg/dL (70-110); Potassium 4.3 mmol/L (3.5-5.5); Sodium 140 mmol/L (135-145); Total Bilirubin <0.2 mg/dL (0.3-1.2); Total Protein 5.6 g/dL (6.2-8.2)
[2024-10-18] MEDS: LORazepam 2 MG/ML INJ IV STA (11:11)
[2024-10-18] MEDS ORDERED: ALBUTEROL NEBULIZED 2.5 MG/3 ML INHALATION PRN (14:29)
--- NOTE | 2024-10-18 14:52 | P.PN ---
Subjective Progress Note Date: 10/18/24 Hospital course: Patient is a very pleasant 79-year-old female with a past medical history of COPD and home oxygen dependence on 2 L as needed, history of previous pulmonary emboli, hyperlipidemia, GERD, and lung cancer with metastasis currently on immunotherapy. She presented to the emergency department with a chief complaint of worsening shortness of breath. Upon arrival to our facility, patient underwent evaluation in the emergency department. Vital signs upon arrival show blood pressure 143/83, heart rate 114, respiratory rate 18, temp 98.4 F, and S pO2 of 93% on room air. EKG showing sinus tachycardia at 111 bpm with no significant T wave or ST abnormality showing no signs of acute ischemia upon personal review and interpretation. Chest x-ray completed showing essentially stable appearance of volume loss involving right lung and midline shift towards the second to underlying known disease and postsurgical changes with minimal aeration involving the right lung, left lung is reported to be overall clear. Right lower extremity Doppler completed negative for DVT. Labs completed and reviewed. CBC showing normocytic anemia with hemoglobin of 9.7. BMP unremarkable. Liver profile showing hypoalbuminemia with albumin of 3.3. Influenza A, influenza B, RSV, and COVID PCR negative. D-dimer is elevated at 2.11. Physical exam: Vital signs reviewed and stable. General: Nontoxic, no distress and appears stated age. Chronically ill- appearing. Thin, frail Derm: Skin warm and dry, normal coloration for ethnicity. Head: Atraumatic, normocephalic and symmetric. Eyes: EOM's intact, no lid lag, and anicteric sclera Mouth: no lip lesions, mucus membranes moist Cardiovascular: regular rate and rhythm with normal S1S2, no murmur, positive posterior tibial pulses bilaterally, and cap refill < 2 seconds. MediPort right chest. Lungs: Respirations even, regular, and unlabored on 2 L O2 via nasal cannula r. Lungs significantly diminished throughout entire right lung, left side clear to auscultation with the exception of soft expiratory wheeze in upper lobe.. Abdominal: soft, nontender to palpation, no guarding, no appreciable organomegaly Ext: ROM intact. No gross muscle atrophy, BLE edema, no contractures Neuro: Speech clear, face symmetrical and CN II-XII grossly intact with no noted focal neuro deficits Psych: Alert and oriented to person, place, time, and situation. Appropriate and pleasant affect. Assessment and Plan of Care: Acute on chronic respiratory failure secondary to COPD exacerbation and underlying lung cancer COPD with acute exacerbation Elevated D-dimer Sinus tachycardia Lung cancer History of pulmonary emboli -Pulmonology following, reviewed documentation in chart. -Oxygenation to be administered and titrated as needed to maintain SPO2 equal to or greater than 92% -Telemetry monitoring. -Monitor pulse-oximetry -Duonebs scheduled 4 times daily and as needed for SOB and/or wheezing. Continue Symbicort 160-4.5 mcg inhaler 2 puffs twice daily. -Incentive Spirometry -Steroids: Solu-Medrol 60 mg IVP every 6 hours. -Order placed for CTA chest secondary to elevated D-dimer along with patient's history of previous PE, lung cancer, tachycardia, and hypoxia. -At this time patient to continue Eliquis 5 mg twice daily. Normocytic anemia -Hemoglobin stable at 9.7. No signs of bleeding, will continue to monitor with repeat a.m. labs. Data and imaging reviewed: EKG showing sinus tachycardia at 111 bpm with no significant T wave or ST abnormality showing no signs of acute ischemia upon personal review and interpretation. Chest x-ray completed showing essentially stable appearance of volume loss involving right lung and midline shift towards the second to underlying known disease and postsurgical changes with minimal aeration involving the right lung, left lung is reported to be overall clear. Right lower extremity Doppler completed negative for DVT. Labs completed and reviewed. CBC showing normocytic anemia with hemoglobin of 9.7. BMP unremarkable. Liver profile showing hypoalbuminemia with albumin of 3.3. Influenza A, influenza B, RSV, and COVID PCR negative. D-dimer is elevated at 2.11. Vital signs reviewed. Blood pressure 159/83, heart rate 96, respiratory rate 16, temp 97.9 F, and SpO2 of 99% on 2 L. CODE STATUS: Full code DVT prophylaxis: Eliquis Anticipated discharge date: Pending clinical course Anticipated discharge place: Pending clinical course Patient was seen independently by Nurse Pracitioner. This document was prepared using [employer] dictation software. Please allow for errors in export coordinator, while rare they do occur. Charlie Hylton NP rendered care for this patient independently, reviewed the findings and plan as documented in the note above and agree with plan. I did not physically speak with or examine the patient on this date. Objective - Vital Signs Vital signs: Vital Signs Temp 97.9 F 10/18/24 08:00 Pulse 108 H 10/18/24 09:14 Resp 16 10/18/24 08:00 BP 159/83 10/18/24 08:00 Pulse Ox 99 10/18/24 08:00 FiO2 Intake & Output 10/17/24 10/18/24 10/18/24 18:59 06:59 18:59 Weight 51.256 kg - Labs CBC & Chem 7: 10/18/24 06:44 10/18/24 06:44 Labs: Abnormal Lab Results - Last 24 Hours (Table) 10/17/24 10/17/24 10/18/24 Range/Units 20:12 20:12 06:44 RBC 3.56 L (3.80-5.40) m/uL Hgb 10.1 L (11.4-16.0) gm/dL Hct 31.7 L (34.0-46.0) % RDW 16.4 H (11.5-15.5) % D-Dimer 2.11 H (<0.60) mg/L FEU Sodium 135 L (137-145) mmol/L Carbon Dioxide 31 H (22-30) mmol/L Total Protein 5.9 L (6.3-8.2) g/dL Albumin 3.3 L (3.5-5.0) g/dL
[2024-10-18] MEDS: CALCIUM CARBONATE 500 MG CHEWABLE PO PRN (16:51)
[2024-10-18] MEDS ORDERED: SYMBICORT 160-4.5 MCG INHALER INHALATION SCH (20:00)
--- NOTE | 2024-10-18 23:00 | P.CONS ---
History of Present Illness - Reason for Consult Consult date: 10/18/24 hx lung cancer Requesting physician: Samir Hurst - Chief Complaint SOB, chest tightness - History of Present Illness Cat is a 59 year old female with a significant history of nicotine dependance, COPD, and NSCLC. She follows with Dr. Shanelle Castillo. She initially presented with cough & SOB, CXR on 07/23/20 at [facility] revealed suspicious RLL & CHIO findings confirmed on PET Scan to be suspicious for neoplastic process. The patient was referred to [facility] where she was evaluated by Dr Tapia, had Robotic assisted wedge resection of CHIO lesion in Oct 2019 revealing T1 Adenocarcinoma with negative florence metastasis. She was scheduled for R sided surgery in November but delayed due to COVID infection. She eventually had Wedge resection of RLL on 03/13/20 at [facility] revealing 4.9 cm Adenocarcinoma, all margins negative, all LN negative. A wedge resection of RUL lesion revealed 2 mm Sharla nocarcinoma. She completed 4 cycles of adjuvant Carboplatinum+Alimta Chemotherapy. Has been on multiple treatment regimens due to recurrence/ progression. Currently on Opdivo, completing cycle 2, approx 3 weeks ago. Patient presented to the emergency room with complaints of chest tightness and progressing shortness of breath over the last couple days. Patient also reports small amount of sputum production. Denies fever and chills. Upon admit chest x-ray showing stable appearance of volume loss involving the right lung and midline shift towards the right secondary to underlying known disease and postsurgical changes. Minimal aeration involving the right lung. Left lung is overall clear. Right lower extremity Doppler negative for DVT labs reviewed, WBC 9.4, hemoglobin 9.7, platelets 368,000. Troponin negative. BNP 157, viral panel negative. D-dimer elevated at 2.11. CTA chest has been ordered and is pending. Patient is afebrile. Patient was started on steroids and bronchodil ators. Of note patient is anticoagulated for previous history of PE. Patient reporting she is currently taking Eliquis 2.5 mg twice daily however upon review of hospital and clinic EMR, it appears patient is prescribed Eliquis 5 mg twice daily. Review of Systems 10 point ROS is negative except as stated in the HPI Past Medical History Past Medical History: Cancer, COPD, GERD/Reflux, Hyperlipidemia, Pulmonary Embolus (PE) Additional Past Medical History / Comment(s): Current back and rib cancer. Ov carolyn cyst. Hx lung cancer 2018 w/wedge resection left upper lobe Oct 2019, hx PE 06/21/22, right lower lobe resection for lung cancer February 2020, had 4 rounds of chemo after that and was cancer free until February 2023. Started immunotherapy and chemotherapy and was in her third treatment and had a reaction at the infusion where she felt like there was a weight on her chest and she couldn't breathe, then chemo was put on hold. History of Any Multi-Drug Resistant Organisms: None Reported Past Surgical History: Orthopedic Surgery, Tonsillectomy Additional Past Surgical History / Comment(s): Right hand surgery, ectopic surgery, lung resection of left upper lobe and right lower lobe, 1994 had lymph nodes removed from right armpit. Past Anesthesia/Blood Transfusion Reactions: Motion Sickness Additional Past Anesthesia/Blood Transfusion Reaction / Comm: motion sickness in the car Past Psychological History: No Psychological Hx Reported Smoking Status: Former smoker - Past Family History Father Family Medical History: Cancer Mother Family Medical History: Cancer, Deep Vein Thrombosis (DVT), Pulmonary Embolus Medications and Allergies Home Medications Medication Instructions Recorded Confirmed Type Albuterol Inhaler [Ventolin Hfa 2 puff INHALATION RT-Q6H PRN 09/17/19 10/18/24 History Inhaler] Cetirizine HCl [Zyrtec] 10 mg PO DAILY 06/21/22 10/18/24 History Omeprazole Magnesium [PriLOSEC OTC] 20 mg PO DAILY 06/21/22 10/18/24 History Apixaban [Eliquis] 5 mg PO BID 30 Days #60 tab 06/24/22 10/18/24 Rx Ipratropium-Albuterol Nebulize 3 ml INHALATION RT-QID 30 Days 06/24/22 10/18/24 Rx [Duoneb 0.5 mg-3 mg/3 ml Soln] #300 ml Budesonide-Formot 160-4.5 Mcg 2 puff INHALATION RT-BID 02/28/23 10/18/24 History [Symbicort 160-4.5 Mcg Inhaler] Gabapentin [Neurontin] 300 mg PO TID 02/28/23 10/18/24 History Sennosides/Docusate Sodium [Senna 1 cap PO BID PRN 02/28/23 10/18/24 History Plus 8.6-50 mg Softgel] fentaNYL 25MCG/HR PATCH [Duragesic 1 patch TRANSDERM Q72H 08/15/23 10/18/24 History 25MCG/HR] Folic Acid 1 mg PO DAILY 01/05/24 10/18/24 History HYDROcodone/APAP 10-325MG [[place] 1 tab PO Q6HR PRN 01/05/24 10/18/24 History 10-325] Lidocaine/Menthol [Asperflex Max 1 patch TRANSDERM DAILY PRN 01/05/24 10/18/24 History 4%-1% Patch] Linaclotide [Linzess] 145 mcg PO DAILY PRN 01/05/24 10/18/24 History Ondansetron Odt [Zofran ODT] 8 mg PO Q6H PRN 01/05/24 10/18/24 History guaiFENesin [Mucinex] 600 mg PO Q12HR PRN #30 tab 01/08/24 10/18/24 Rx Allergies Allergy/AdvReac Type Severity Reaction Status Date / Time sulfamethoxazole Allergy Rash/Hives Verified 10/18/24 16:22 [From Bactrim] trimethoprim [From Bactrim] Allergy Rash/Hives Verified 10/18/24 16:22 Physical Exam Vitals: Vital Signs Temp Pulse Resp BP Pulse Ox 10/18/24 16:52 98.1 F 130 H 19 138/86 98 10/18/24 16:19 128 H 10/18/24 16:05 120 H 10/18/24 12:22 112 H 10/18/24 12:10 114 H 10/18/24 12:00 120 H 20 148/90 98 10/18/24 11:00 120 H 20 140/90 96 10/18/24 09:14 108 H 10/18/24 09:01 98 10/18/24 08:00 97.9 F 96 16 159/83 99 10/18/24 06:30 105 H 18 158/56 99 10/18/24 03:49 101 H 18 158/87 100 10/18/24 00:44 106 H 18 150/88 100 10/17/24 19:40 98.4 F 114 H 18 143/83 93 L - Constitutional General appearance: average body habitus, no acute distress - EENT Eyes: anicteric sclerae, EOMI ENT: hearing grossly normal - Respiratory Respiratory: bilateral: diminished - Cardiovascular tachycardic - Gastrointestinal General gastrointestinal: soft, no tenderness - Integumentary Integumentary: no cyanotic, no jaundiced - Psychiatric Psychiatric: A&O x's 3 Results CBC & Chem 7: 10/18/24 06:44 10/18/24 06:44 Labs: Abnormal Lab Results - Last 24 Hours (Table) 10/17/24 10/17/24 10/18/24 Range/Units 20:12 20:12 06:44 RBC 3.56 L (3.80-5.40) m/uL Hgb 10.1 L (11.4-16.0) gm/dL Hct 31.7 L (34.0-46.0) % MCHC (32.0-37.0) g/dL RDW 16.4 H (11.5-15.5) % D-Dimer 2.11 H (<0.60) mg/L FEU Sodium 135 L (137-145) mmol/L Carbon Dioxide 31 H (22-30) mmol/L Total Bilirubin (0.3-1.2) mg/dL Total Protein 5.9 L (6.3-8.2) g/dL Albumin 3.3 L (3.5-5.0) g/dL Albumin/Globulin Ratio (1.60-3.17) Ratio 10/18/24 10/18/24 Range/Units 06:44 06:44 RBC 3.59 L (3.80-5.40) m/uL Hgb 9.7 L (11.4-16.0) gm/dL Hct 32.7 L (34.0-46.0) % MCHC 29.7 L (32.0-37.0) g/dL RDW 16.5 H (11.5-15.5) % D-Dimer (<0.60) mg/L FEU Sodium (137-145) mmol/L Carbon Dioxide (22-30) mmol/L Total Bilirubin <0.2 L (0.3-1.2) mg/dL Total Protein 5.6 L (6.3-8.2) g/dL Albumin 3.3 L (3.5-5.0) g/dL Albumin/Globulin Ratio 1.43 L (1.60-3.17) Ratio Chest x-ray: report reviewed Venous US: report reviewed Assessment and Plan (1) Adenocarcinoma of lung Current Visit: Yes Status: Acute Priority: High Code(s): C34.90 - MALIGNANT NEOPLASM OF UNSP PART OF UNSP BRONCHUS OR LUNG SNOMED Code(s): 479744054 (2) Dyspnea Current Visit: Yes Status: Acute Priority: High Code(s): R06.00 - DYSPNEA, UNSPECIFIED SNOMED Code(s): 321312469 (3) Acute exacerbation of chronic obstructive pulmonary disease Current Visit: Yes Status: Acute Code(s): J44.1 - CHRONIC OBSTRUCTIVE PULMONARY DISEASE W (ACUTE) EXACERBATION SNOMED Code(s): 877236450 Plan: SOB, COPD exacerbation: Presented to the emergency room with complaints of chest tightness and progressing shortness of breath over the last couple days. Patient also reports small amount of sputum production. Denies fever and chills. -Upon admit chest x-ray showing stable appearance of volume loss involving the r ight lung and midline shift towards the right secondary to underlying known disease and postsurgical changes. Minimal aeration involving the right lung. Left lung is overall clear. Right lower extremity Doppler negative for DVT labs reviewed -Troponin negative. BNP 157, viral panel negative. D-dimer elevated at 2.11. -CTA chest has been ordered and is pending. Await CT results to evaluate for infectious/inflammatory process vs disease progression or possible IO induced pneumonitis -Patient has been started on steroids and bronchodilators. Pulmonology following -Of note, patient is anticoagulated for previous history of PE. Patient reporting she is currently taking Eliquis 2.5 mg twice daily, however upon review of hospital and clinic EMR, it appears patient is prescribed Eliquis 5 mg twice daily. Eliquis 5mg BID has been started on admit. If acute PE noted on CTA, will need to further clarify what dose of Eliquis patient has been taking. If she was on 2.5mg BID, then can continue patient on 5mg BID. However, if patient has been taking Eliquis at 5mg BID without recent missed doses, would have to consider this Eliquis failure and would need to consider alternative AC. If acute PE is found on CTA chest, would recommend heparin drip for now so we can further determine appropriate AC treatment Metastatic NSCLC: -Oncology history as dictated in the HPI -Currently on treatment with Opdivo, last treatment 3 weeks ago. Has been tolerating treatment well -Treatment on hold until acute symptoms resolved and IO induced pneumonitis is ruled out -Clinic f/u on 11/13 Doctor attests: I performed a history and physical examination of this patient, developed impression and plan of care. Discussed with dictator. I agree with dictators note, documented as a scribe.
[2024-10-19] MEDS: CALCIUM CARBONATE 500 MG CHEWABLE PO PRN (03:38)
[2024-10-19] MEDS: IBUPROFEN 600 MG TAB PO PRN (12:11)
[2024-10-19 12:48] LABS: HCT 33.3 % (37.2-46.3); MCH 26.7 pg (27.0-32.0); Mean Platelet Volume 10.3 FL (9.5-12.2); NRBC Per 100 WBC 0 X 10*3/uL (0.00-0.01); Platelet Count 429 X 10*3/uL (140-440); RBC 3.74 X 10*6/uL (4.10-5.20); RDW 16.4 % (11.5-14.5); WBC 11.04 X 10*3/uL (4.50-10.00)
[2024-10-19 12:59] LABS: ALT 12 U/L (8-44); AST 17 U/L (13-35); Albumin 3.7 g/dL (3.8-4.9); Albumin/Globulin Ratio 1.42 Ratio (1.60-3.17); Alkaline Phosphatase 89 U/L (41-126); Blood Urea Nitrogen 15.2 mg/dL (9.0-27.0); Calcium 10.1 mg/dL (8.7-10.3); Carbon Dioxide 29.1 mmol/L (21.6-31.8); Chloride 95 mmol/L (96-109); Globulin 2.6 g/dL (1.6-3.3); Glucose 133 mg/dL (70-110); Magnesium 1.8 mg/dL (1.5-2.4); Potassium 4.8 mmol/L (3.5-5.5); Sodium 135 mmol/L (135-145); Total Bilirubin <0.2 mg/dL (0.3-1.2); Total Protein 6.3 g/dL (6.2-8.2)
--- NOTE | 2024-10-19 14:07 | CT ---
EXAMINATION TYPE: CT chest angio for PE DATE OF EXAM: 10/19/2024 1:51 PM COMPARISON: PET 07/25/2024. CLINICAL INDICATION: Female, 59 years old with history of Elevated d-dimer, hypoxia, cancer; Elevate d d-dimer, hypoxia, cancer TECHNIQUE/CONTRAST: CTA scan of the thorax is performed with IV Contrast, patient injected with 100 mL of Isovue 300, MIP images are created and reviewed these are created on a separate workstation.. CT DLP: 272.5 mGycm, Automated exposure control for dose reduction was used. FINDINGS: Lungs/Pleura: Elevated right diaphragm with small pleural effusion and associated atelectasis. Airspa ce opacity seen throughout the right lung. Rightward deviation of the medial sternum. Small left pleu ral effusion. Known right perihilar and right-sided malignancy is obscured by consolidation. Airway: Large airways are patent. Heart: Heart is within normal limits for size. Vasculature: There is no evidence for a filling defect within the pulmonary vasculature to suggest ac [place] pulmonary embolism. The pulmonary artery is of normal size. Mediastinum: No gross evidence of adenopathy. Musculoskeletal: No acute osseous abnormalities Soft Tissues/lymph nodes: Unremarkable. Lower neck: No significant findings. Upper Abdomen: No significant findings. IMPRESSION: 1. No evidence of pulmonary embolism. 2. Rightward shift of the mediastinum with small right pleural effusion and airspace consolidation co rrelate for superimposed infection. 3. Trace left pleural effusion. [facility], , 10/19/2024 2:04 PM
--- NOTE | 2024-10-19 14:42 | P.PN ---
Subjective Progress Note Date: 10/19/24 58-year-old female patient with a known history of chronic obstructive pulmonary disease with FEV1 value 32% of predicted, [id number] smoking history, pulmonary embolism anticoagulated with Eliquis. She does follow in the pulmonary office with Dr. Adams. She has a known history of lung cancer original ly diagnosed with wedge resection of the left upper lobe October 2019, as well as, a right lung resection in February 2021. A follow-up PET scan in February 2023 indicating possible disease recurrence. 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 Her established oncologist is Dr. Castillo. Previously maintained on chemotherapy with Alimta and cisplatin. Most recent available PET scan taken on 07/25/2024 showing overall mixed response to therapy with slightly increased radiotracer activity throughout the right pleural and anterior right seventh rib with mild decrease i n radiotracer activity within the right 10th rib and posterior costophrenic pleural region. Development of nonspecific left anterior peritoneal stranding changes with mild FDG uptake, could represent early peritoneal metastasis versus other etiologies such as infectious/inflammatory nature. Currently on Opdivo treatments, she has had 2 infusions so far. Presented to emergency department last night complaining of progressively worsening shortness of breath over the last couple days. Denies sick contacts. Denies any infectious-like symptoms such as fevers, chills, cough, sputum production, hemoptysis, chest pain. 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 She has supplemental oxygen that she occasionally uses as needed, and she has required this over the last 2 days. Also noted some right unilateral right leg swelling. Venous Doppler was negative for DVT. She does have history of pulmonary embolism that is chronically anticoagulated on Eliquis. CBC: WBC count 8.5, hemoglobin 10.1, hematocrit 31.7, platelets 355. CMP: Sodium 135, potassium 3.8, chloride 98, serum bicarb 31, BUN 15, creatinine 0.71, glucose 96. Lactic 0.8. Troponin less than 0.012. NT proBNP 157. Normal saline infusing at 75 mL/h. Chest x-ray: Essentially stable appearance of volume loss involving the right lung and midline shift towards the right secondary to underlying known malignancy. Minimal aeration of the right upper lung. Left lung is overall clear. Negative for influenza, RSV, COVID. Is currently being evaluated the emergency department. She is not in any respiratory distress. Nontachypneic. Her main complaint at this time is pain mostly involving her right lateral chest and lumbar spine. She has known osseous mets. Current vitals: Temperature 98.4 F, heart rate 106 bpm, blood pressure 150/88 mmHg, SpO2 100%, on 2 L/min nasal cannula. On 10/19/2024, the patient is being seen for a follow-up. Respiratory status stable and somewhat improved compared to yesterday. Less bronchospastic and wheezy compared to yesterday. She has chronic issues with pain. Remains on Symbicort. Remains on IV Solu-Medrol 60 mg every 6 hours. Remains on DuoNeb updrafts. White cell count 11 hemoglobin of 10 platelet count of 429. Kimberley ctrolytes are all within normal limits. Troponin was negative. proBNP level was not elevated. D-dimer was at 2.11 and the patient is on long-term anticoagulation with Eliquis. No other significant events otherwise for now. Objective - Vital Signs Vital signs: Vital Signs Temp 98.2 F 10/19/24 07:21 Pulse 122 H 10/19/24 08:06 Resp 16 10/19/24 07:21 BP 132/80 10/19/24 07:21 Pulse Ox 98 10/19/24 07:21 FiO2 Intake & Output 10/18/24 10/19/24 10/19/24 18:59 06:59 18:59 Intake Total 480 Balance 480 Weight 51.256 kg Intake: Oral 480 Other: # Voids 1 - Exam GENERAL EXAM: Alert, 59-year-old white female, no signs of CO2 narcosis, fairly comfortable in no apparent distress. HEAD: Normocephalic and atraumatic EYES: Normal reaction of pupils, equal size. NOSE: Clear with pink turbinates. THROAT: No erythema or exudates. NECK: No masses, no JVD. CHEST: No chest wall deformity. Right chest Mediport LUNGS: Equal air entry with markedly diminished right lung sounds, right posterior upper lobe has inspiratory crackles. Left lung is clear to auscultation. On 2 L/min nasal cannula. SpO2 100%. No conversational dyspnea or accessory muscle use.. CVS: S1 and S2 normal with no audible murmur, regular rhythm. No extra heart sounds ABDOMEN: No hepatosplenomegaly, active bowel sounds, no guarding or rigidity. SPINE: No scoliosis or deformity SKIN: No rashes CENTRAL NERVOUS SYSTEM: No focal deficits, tone is normal in all 4 extremities. EXTREMITIES: Bilateral lower extremity edema, right greater than left. No clubbing, or cyanosis. Peripheral pulses are intact. - Labs CBC & Chem 7: 10/19/24 08:58 10/19/24 08:58 Assessment and Plan Assessment: Recurrent metastatic non-small cell lung cancer, patient had mini right thoracotomy with biopsy on July, revealing invasive poorly differentiated non-small cell carcinoma consistent with pulmonary adenocarcinoma type. Previously maintained on chemotherapy with Alimta and carboplatin, could not tolerate side effects. PET scan taken on 07/25/2024 showing overall mixed response to therapy with slightly increased radiotracer activity throughout the right pleural and anterior right seventh rib with mild decrease in radiotracer activity within the right 10th rib and posterior costophrenic pleural region. Development of nonspecific left anterior peritoneal stranding changes with mild FDG uptake, could represent early peritoneal metastasis versus other etiologies such as infectious/inflammatory nature. Currently on Opdivo, has received 2 infusions so far. Acute COPD exacerbation, Chest x-ray: Essentially stable appearance of volume loss involving the right lung and midline shift towards the right secondary to underlying known malignancy. Minimal aeration of the right upper lung. Left lung is overall clear. Negative for influenza, RSV, COVID. Acute dyspnea secondary to combination of above Acute on chronic hypoxemic respiratory failure,, currently on 2 L/min nasal cannula Chronic pain secondary to malignancy Severe chronic obstructive pulmonary disease, with an FEV1 31% of predicted Chronic hypoxemic respiratory failure, uses 2 L/min nasal cannula as needed at home Former tobacco smoker History of pulmonary embolism, chronically anticoagulated on Eliquis Normocytic, normochromic anemia, no acute blood loss noted Plan: Stable on 2 L of oxygen by nasal cannula Optimize lung function with combination of DuoNebs Continue Symbicort inhaler Continue IV Solu-Medrol Resume analgesics for cancer pain Continue Eliquis IV fluids to KVO Home medication resumed No clear indication for immunotherapy induced pneumonitis
--- NOTE | 2024-10-19 14:43 | P.PN ---
Subjective Progress Note Date: 10/19/24 Hospital course: Patient is a very pleasant 79-year-old female with a past medical history of COPD and home oxygen dependence on 2 L as needed, history of previous pulmonary emboli, hyperlipidemia, GERD, and lung cancer with metastasis currently on immunotherapy. She presented to the emergency department with a chief complaint of worsening shortness of breath. Upon arrival to our facility, patient underwent evaluation in the emergency department. Vital signs upon arrival show blood pressure 143/83, heart rate 114, respiratory rate 18, temp 98.4 F, and S pO2 of 93% on room air. EKG showing sinus tachycardia at 111 bpm with no significant T wave or ST abnormality showing no signs of acute ischemia upon personal review and interpretation. Chest x-ray completed showing essentially stable appearance of volume loss involving right lung and midline shift towards the second to underlying known disease and postsurgical changes with minimal aeration involving the right lung, left lung is reported to be overall clear. Right lower extremity Doppler completed negative for DVT. Labs completed and reviewed. CBC showing normocytic anemia with hemoglobin of 9.7. BMP unremarkable. Liver profile showing hypoalbuminemia with albumin of 3.3. Influenza A, influenza B, RSV, and COVID PCR negative. D-dimer is elevated at 2.11. Order was placed for CTA chest on 10/18/2024, however upon investigation for unreported reasons this was rescheduled by radiology for today. Physical exam: Patient seen and fully evaluated at bedside, she reports continued shortness of breath worse with any exertion as well as uncontrolled cancer pain. Medication changes were made to current pain medication regimen at this time. Patient was started on Motrin 600 mg every 4 hours in addition to fentanyl 25 mcg every 72 hours, Dilaudid 0.5 mg every 3 hours, and Neurontin 300 mg 3 times daily. Vital signs reviewed and stable. General: Nontoxic, no distress and appears stated age. Chronically ill- appearing. Thin, frail Derm: Skin warm and dry, normal coloration for ethnicity. Head: Atraumatic, normocephalic and symmetric. Eyes: EOM's intact, no lid lag, and anicteric sclera Mouth: no lip lesions, mucus membranes moist Cardiovascular: regular rate and rhythm with normal S1S2, no murmur, positive posterior tibial pulses bilaterally, and cap refill < 2 seconds. MediPort right chest. Lungs: Respirations even, regular, and unlabored on 2 L O2 via nasal cannula. Lungs significantly diminished throughout entire right lung, left side clear to auscultation with the exception of soft expiratory wheeze in upper lobe.. Abdominal: soft, nontender to palpation, no guarding, no appreciable organomegaly Ext: ROM intact. No gross muscle atrophy, BLE edema, no contractures Neuro: Speech clear, face symmetrical and CN II-XII grossly intact with no noted focal neuro deficits Psych: Alert and oriented to person, place, time, and situation. Appropriate and pleasant affect. Assessment and Plan of Care: Acute on chronic respiratory failure secondary to COPD exacerbation and underlying lung cancer COPD with acute exacerbation Elevated D-dimer Sinus tachycardia Lung cancer History of pulmonary emboli -Pulmonology following, reviewed documentation in chart. -Oxygenation to be administered and titrated as needed to maintain SPO2 equal to or greater than 92% -Telemetry monitoring. -Monitor pulse-oximetry -Duonebs scheduled 4 times daily and as needed for SOB and/or wheezing. Continue Symbicort 160-4.5 mcg inhaler 2 puffs twice daily. -Incentive Spirometry -Steroids: Solu-Medrol 60 mg IVP every 6 hours. -Awaiting completion of CTA secondary to elevated D-dimer along with patient's history of previous PE, lung cancer, tachycardia, and hypoxia. -Continue Eliquis 5 mg twice daily, pt previously on 2.5 mg BID which is not therapeutic dosing. Will be discharging pt home on therapeutic dose of 5 mg BID. Uncontrolled Cancer Pain -Medication changes were made to current pain medication regimen at this time. Patient was started on Motrin 600 mg every 4 hours in addition to fentanyl 25 mcg every 72 hours, Dilaudid 0.5 mg every 3 hours, and Neurontin 300 mg 3 times daily. Normocytic anemia -Hemoglobin stable at 9.7. No signs of bleeding, will continue to monitor with repeat a.m. labs. Data and imaging reviewed: Awaiting CTA chest to be completed, was ordered on 10/18/2024 at 10:50 AM however for unreported reasons this was canceled by radiology and reordered for today. Labs completed and reviewed. CBC showing leukocytosis at WBC count of 11.4 and stable hemoglobin of 10.0. BMP showing mild hypochloremia with chloride of 95 otherwise normal findings. Blood glucose 133. Magnesium 1.8. Liver profile showing hypoalbuminemia with albumin of 3.7. Vital signs reviewed. Blood pressure 132/80, heart rate 107, respiratory rate 16, temp 98.2 F, and SpO2 of 98% on 2 L. CODE STATUS: Full code DVT prophylaxis: Reannaquis Anticipated discharge date: Pending clinical course Anticipated discharge place: Pending clinical course Patient was seen independently by Nurse Pracitioner. This document was prepared using [employer] dictation software. Please allow for errors in snow maker, while rare they do occur. Charlie Hylton NP rendered care for this patient independently, reviewed the findings and plan as documented in the note above and agree with plan. I did not physically speak with or examine the patient on this date. . Objective - Vital Signs Vital signs: Vital Signs Temp 98.2 F 10/19/24 07:21 Pulse 122 H 10/19/24 08:06 Resp 16 10/19/24 07:21 BP 132/80 10/19/24 07:21 Pulse Ox 98 10/19/24 07:21 FiO2 Intake & Output 10/18/24 10/19/24 10/19/24 18:59 06:59 18:59 Weight 51.256 kg Other: # Voids 1 - Labs CBC & Chem 7: 10/19/24 08:58 10/19/24 08:58 Labs: Abnormal Lab Results - Last 24 Hours (Table) 10/18/24 10/18/24 Range/Units 06:44 06:44 RBC 3.59 L (4.10-5.20) X 10*6/uL Hgb 9.7 L (12.0-15.0) g/dL Hct 32.7 L (37.2-46.3) % MCHC 29.7 L (32.0-37.0) g/dL RDW 16.5 H (11.5-14.5) % Total Bilirubin <0.2 L (0.3-1.2) mg/dL Total Protein 5.6 L (6.2-8.2) g/dL Albumin 3.3 L (3.8-4.9) g/dL Albumin/Globulin Ratio 1.43 L (1.60-3.17) Ratio
[2024-10-19] MEDS: LORazepam 2 MG/ML INJ IV STA ×2 (14:49)
[2024-10-19] MEDS: HYDROcodone/APAP 10-325MG 1 EACH TAB PO PRN (17:32)
[2024-10-20 08:03] VITALS: RESP 16; TEMP 98.2
[2024-10-20 12:02] VITALS: BP 132/66; PULSE 107
--- NOTE | 2024-10-20 12:59 | P.DS ---
Providers Date of admission: 10/18/24 00:50 Expected date of discharge: 10/20/24 Attending physician: Clinton Lama MD Consults: 10/18/24 05:22 Consult Physician Urgent Consulting Provider: Harrison Adams Consult Reason/Comments: Acute hypoxic respiratory failure secondary to COPD exacerbation Do you want consulting provider notified?: Yes 10/18/24 05:23 Consult Physician Urgent Consulting Provider: Josh Hargrove Consult Reason/Comments: History of lung malignancy with metastasis Do you want consulting provider notified?: Yes [facility] Course: Discharge Diagnosis: Acute on chronic respiratory failure secondary to COPD exacerbation and underlying lung cancer. COPD with acute exacerbation. Elevated D-dimer CTA negative for PE. Sinus tachycardia, secondary to above. Lung cancer. History of pulmonary emboli Uncontrolled Cancer Pain -Medication changes were made to current pain medication regimen during admission. Patient being discharged home on fentanyl patch 50 mcg/h and to continue with Neurontin 300 mg 3 times daily and [place] 10/325 mg every 6 hours as needed for breakthrough pain. Normocytic anemia Hemoglobin stable at 10.0 on discharge.. Hospital course: Patient is a very pleasant 59-year-old female with a past medical history of COPD and home oxygen dependence on 2 L as needed, history of previous pulmonary emboli, hyperlipidemia, GERD, and lung cancer with metastasis currently on immunotherapy. She presented to the emergency department with a chief complaint of worsening shortness of breath. Upon arrival to our facility, patient underwent evaluation in the emergency department. Vital signs upon arrival show blood pressure 143/83, heart rate 114, respiratory rate 18, temp 98.4 F, and SpO2 of 93% on room air. EKG showing sinus tachycardia at 111 bpm with no significant T wave or ST abnormality showing no signs of acute ischemia upon personal review and interpretation. Chest x-ray completed showing essentially stable appearance of volume loss involving right lung and midline shift towards the second to underlying known disease and postsurgical changes with minimal aeration involving the right lung, left lung is reported to be overall clear. Right lower extremity Doppler completed negative for DVT. Labs completed and reviewed. CBC showing normocytic anemia with hemoglobin of 9.7. BMP un remarkable. Liver profile showing hypoalbuminemia with albumin of 3.3. Influenza A, influenza B, RSV, and COVID PCR negative. D-dimer is elevated at 2.11. CTA chest was negative for acute pulmonary emboli showing rightward shift of the mediastinum with small right pleural effusion and airspace consolidation with trace left pleural effusion. Patient was followed closely by our hospitalist team, pulmonology, and oncology. Patient received IV steroids and adjustments to pain medication regimen were completed. Patient's condition improving and she has been cleared by oncology and pulmonary for discharge. Medically, patient is optimized for discharge at this time. Patient was informed that oncology team will send prescription for fentanyl patch tomorrow morning from office and that current patch is good for another 48 hours. Patient to follow-up outpatient with PCP this week, oncology in 1 week, and pulmonology in 2 weeks. Patient discharged home on prednisone taper and as stated above changes made to fentanyl patch. Vital signs stable with blood pressure 150/82, heart rate 91, respiratory rate 16, temp 98.2 F, and SpO2 of 99% on 2 L. Physical exam: Vital signs reviewed and stable. General: Nontoxic, no distress and appears stated age. Chronically ill- appearing. Thin, frail Derm: Skin warm and dry, normal coloration for ethnicity. Head: Atraumatic, normocephalic and symmetric. Eyes: EOM's intact, no lid lag, and anicteric sclera Mouth: no lip lesions, mucus membranes moist Cardiovascular: regular rate and rhythm with normal S1S2, no murmur, positive posterior tibial pulses bilaterally, and cap refill < 2 seconds. MediPort right chest. Lungs: Respirations even, regular, and unlabored on 2 L O2 via nasal cannula. L ungs significantly diminished throughout entire right lung, left side clear to auscultation with the exception of soft expiratory wheeze in upper lobe.. Abdominal: soft, nontender to palpation, no guarding, no appreciable organomegaly Ext: ROM intact. No gross muscle atrophy, BLE edema, no contractures Neuro: Speech clear, face symmetrical and CN II-XII grossly intact with no noted focal neuro deficits Psych: Alert and oriented to person, place, time, and situation. Appropriate and pleasant affect. A total of 36 minutes of time were spent preparing this complex discharge summary. Pt was discharged on 10/20/2024 at 12:55 PM. Patient was seen independently by Nurse Practitioner. This document was prepared using [employer] dictation software. Please allow for errors in reiki practitioner while rare they do occur. Charlie Hylton NP rendered care for this patient independently, reviewed the findings and plan as documented in the note above. I did not physically speak with or examine the patient on this date. Patient Condition at Discharge: Stable Plan - Discharge Summary Discharge Rx Participant: No New Discharge Prescriptions: New predniSONE See Taper PO DIRECTED 12 Days #30 tab fentaNYL 50MCG/HR PATCH [Duragesic 50MCG/HR] 1 patch TRANSDERM Q72H patch Continue Albuterol Inhaler [Ventolin Hfa Inhaler] 2 puff INHALATION RT-Q6H PRN PRN Reason: Shortness Of Breath Omeprazole Magnesium [PriLOSEC OTC] 20 mg PO DAILY Cetirizine HCl [Zyrtec] 10 mg PO DAILY Ipratropium-Albuterol Nebulize [Duoneb 0.5 mg-3 mg/3 ml Soln] 3 ml INHALATION RT-QID 30 Days #300 ml Apixaban [Eliquis] 5 mg PO BID 30 Days #60 tab Budesonide-Formot 160-4.5 Mcg [Symbicort 160-4.5 Mcg Inhaler] 2 puff INHALATION RT-BID Lidocaine/Menthol [Asperflex Max 4%-1% Patch] 1 patch TRANSDERM DAILY PRN PRN Reason: Pain HYDROcodone/APAP 10-325MG [[place] 10-325] 1 tab PO Q6HR PRN PRN Reason: Pain Gabapentin [Neurontin] 300 mg PO TID Sennosides/Docusate Sodium [Senna Plus 8.6-50 mg Softgel] 1 cap PO BID PRN PRN Reason: Constipation Ondansetron Odt [Zofran ODT] 8 mg PO Q6H PRN PRN Reason: Nausea Folic Acid 1 mg PO DAILY Linaclotide [Linzess] 145 mcg PO DAILY PRN PRN Reason: IBS guaiFENesin [Mucinex] 600 mg PO Q12HR PRN #30 tab PRN Reason: Cough Discontinued fentaNYL 25MCG/HR PATCH [Duragesic 25MCG/HR] 1 patch TRANSDERM Q72H Discharge Medication List Albuterol Inhaler [Ventolin Hfa Inhaler] 2 puff INHALATION RT-Q6H PRN 09/17/19 [History] Cetirizine HCl [Zyrtec] 10 mg PO DAILY 06/21/22 [History] Omeprazole Magnesium [PriLOSEC OTC] 20 mg PO DAILY 06/21/22 [History] Apixaban [Eliquis] 5 mg PO BID 30 Days #60 tab 06/24/22 [Rx] Ipratropium-Albuterol Nebulize [Duoneb 0.5 mg-3 mg/3 ml Soln] 3 ml INHALATION RT-QID 30 Days #300 ml 06/24/22 [Rx] Budesonide-Formot 160-4.5 Mcg [Symbicort 160-4.5 Mcg Inhaler] 2 puff INHALATION RT-BID 02/28/23 [History] Gabapentin [Neurontin] 300 mg PO TID 02/28/23 [History] Sennosides/Docusate Sodium [Senna Plus 8.6-50 mg Softgel] 1 cap PO BID PRN 02/28/23 [History] Folic Acid 1 mg PO DAILY 01/05/24 [History] HYDROcodone/APAP 10-325MG [[place] 10-325] 1 tab PO Q6HR PRN 01/05/24 [History] Lidocaine/Menthol [Asperflex Max 4%-1% Patch] 1 patch TRANSDERM DAILY PRN 01/05/24 [History] Linaclotide [Linzess] 145 mcg PO DAILY PRN 01/05/24 [History] Ondansetron Odt [Zofran ODT] 8 mg PO Q6H PRN 01/05/24 [History] guaiFENesin [Mucinex] 600 mg PO Q12HR PRN #30 tab 01/08/24 [Rx] fentaNYL 50MCG/HR PATCH [Duragesic 50MCG/HR] 1 patch TRANSDERM Q72H patch 10/20/24 [Rx] predniSONE See Taper PO DIRECTED 12 Days #30 tab 10/20/24 [Rx] Follow up Appointment(s)/Referral(s): Rao Foster MD [Primary Care Provider] - 1-2 days (Please call and schedule follow-up appointment) Brandee Castillo MD [STAFF PHYSICIAN] - 1 Week (Please call and schedule follow-up appointment) Lesvia Holt MD [STAFF PHYSICIAN] - 2 Weeks (Please call and schedule follow-up appointment) Patient Instructions/Handouts: Lung Cancer (DC), COPD (Chronic Obstructive Pulmonary Disease) (DC) Activity/Diet/Wound Care/Special Instructions: Activity: As tolerated. Take breaks as needed. Diet: Heart healthy and carb consistent diet. Avoid salts, or foods with hidden salts such as canned or boxed foods and frozen dinners. Extra salt makes your heart work harder and traps the fluid in your body for longer. Special Instructions: Take all of your medications as directed and remember to keep all of your doctor's appointments and follow-up as needed. Discussed with oncology team, your increased dose of fentanyl patch will be sent to pharmacy by oncology office tomorrow morning. The patch you are currently wearing is good for an additional 48 hours. Thank you for allowing us to participate in your care, it was truly a pleasure having you for our patient!!! Discharge Disposition: HOME WITH HOME HEALTH SERVICES
--- NOTE | 2024-10-20 13:08 | P.PN ---
Subjective Progress Note Date: 10/20/24 58-year-old female patient with a known history of chronic obstructive pulmonary disease with FEV1 value 32% of predicted, [id number] smoking history, pulmonary embolism anticoagulated with Eliquis. She does follow in the pulmonary office with Dr. Adams. She has a known history of lung cancer original ly diagnosed with wedge resection of the left upper lobe October 2019, as well as, a right lung resection in February 2021. A follow-up PET scan in February 2023 indicating possible disease recurrence. 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 Her established oncologist is Dr. Castillo. Previously maintained on chemotherapy with Alimta and cisplatin. Most recent available PET scan taken on 07/25/2024 showing overall mixed response to therapy with slightly increased radiotracer activity throughout the right pleural and anterior right seventh rib with mild decrease i n radiotracer activity within the right 10th rib and posterior costophrenic pleural region. Development of nonspecific left anterior peritoneal stranding changes with mild FDG uptake, could represent early peritoneal metastasis versus other etiologies such as infectious/inflammatory nature. Currently on Opdivo treatments, she has had 2 infusions so far. Presented to emergency department last night complaining of progressively worsening shortness of breath over the last couple days. Denies sick contacts. Denies any infectious-like symptoms such as fevers, chills, cough, sputum production, hemoptysis, chest pain. 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 She has supplemental oxygen that she occasionally uses as needed, and she has required this over the last 2 days. Also noted some right unilateral right leg swelling. Venous Doppler was negative for DVT. She does have history of pulmonary embolism that is chronically anticoagulated on Eliquis. CBC: WBC count 8.5, hemoglobin 10.1, hematocrit 31.7, platelets 355. CMP: Sodium 135, potassium 3.8, chloride 98, serum bicarb 31, BUN 15, creatinine 0.71, glucose 96. Lactic 0.8. Troponin less than 0.012. NT proBNP 157. Normal saline infusing at 75 mL/h. Chest x-ray: Essentially stable appearance of volume loss involving the right lung and midline shift towards the right secondary to underlying known malignancy. Minimal aeration of the right upper lung. Left lung is overall clear. Negative for influenza, RSV, COVID. Is currently being evaluated the emergency department. She is not in any respiratory distress. Nontachypneic. Her main complaint at this time is pain mostly involving her right lateral chest and lumbar spine. She has known osseous mets. Current vitals: Temperature 98.4 F, heart rate 106 bpm, blood pressure 150/88 mmHg, SpO2 100%, on 2 L/min nasal cannula. On 10/19/2024, the patient is being seen for a follow-up. Respiratory status stable and somewhat improved compared to yesterday. Less bronchospastic and wheezy compared to yesterday. She has chronic issues with pain. Remains on Symbicort. Remains on IV Solu-Medrol 60 mg every 6 hours. Remains on DuoNeb updrafts. White cell count 11 hemoglobin of 10 platelet count of 429. Kimberley ctrolytes are all within normal limits. Troponin was negative. proBNP level was not elevated. D-dimer was at 2.11 and the patient is on long-term anticoagulation with Eliquis. No other significant events otherwise for now. On 10/20/2024, the patient is feeling weak. Pain is under better control. No new complaints. No significant shortness of breath at rest and the patient remains on oxygen 2 L/min nasal cannula with a pulse ox of 99%. No labs from today. Most recent labs are from yesterday. Viral screen was negative. proBNP level is not elevated and the troponins are also negative. The patient has no other new complaints for now. Remains on bronchodilators. She remains on ster oids. Objective - Vital Signs Vital signs: Vital Signs Temp 98.2 F 10/20/24 08:00 Pulse 119 H 10/20/24 08:02 Resp 16 10/20/24 08:00 BP 150/82 10/20/24 08:00 Pulse Ox 99 10/20/24 08:00 FiO2 Intake & Output 10/19/24 10/20/24 10/20/24 18:59 06:59 18:59 Intake Total 2040 825 480 Balance 0 825 480 Intake: Intake, IV Titration 825 Amount Sodium Chloride 0.9% 1, 825 000 ml @ 75 mls/hr IV . [id number] [facility] Rx#:[id number] Oral 2040 480 Other: Voiding Method Bedside Commode # Voids 5 1 # Bowel Movements 1 - Exam GENERAL EXAM: Alert, 59-year-old white female, no signs of CO2 narcosis, fairly comfortable in no apparent distress. HEAD: Normocephalic and atraumatic EYES: Normal reaction of pupils, equal size. NOSE: Clear with pink turbinates. THROAT: No erythema or exudates. NECK: No masses, no JVD. CHEST: No chest wall deformity. Right chest Mediport LUNGS: Equal air entry with markedly diminished right lung sounds, right posterior upper lobe has inspiratory crackles. Left lung is clear to auscultation. On 2 L/min nasal cannula. SpO2 100%. No conversational dyspnea or accessory muscle use.. CVS: S1 and S2 normal with no audible murmur, regular rhythm. No extra heart sounds ABDOMEN: No hepatosplenomegaly, active bowel sounds, no guarding or rigidity. SPINE: No scoliosis or deformity SKIN: No rashes CENTRAL NERVOUS SYSTEM: No focal deficits, tone is normal in all 4 extremities. EXTREMITIES: Bilateral lower extremity edema, right greater than left. No clubbing, or cyanosis. Peripheral pulses are intact. - Labs CBC & Chem 7: 10/19/24 08:58 10/19/24 08:58 Labs: Abnormal Lab Results - Last 24 Hours (Table) 10/19/24 10/19/24 Range/Units 08:58 08:58 WBC 11.04 H (4.50-10.00) X 10*3/uL RBC 3.74 L (4.10-5.20) X 10*6/uL Hgb 10.0 L (12.0-15.0) g/dL Hct 33.3 L (37.2-46.3) % MCH 26.7 L (27.0-32.0) pg MCHC 30.0 L (32.0-37.0) g/dL RDW 16.4 H (11.5-14.5) % Chloride 95 L (96-109) mmol/L Creatinine 0.5 L (0.6-1.5) mg/dL BUN/Creatinine Ratio 30.40 H (12.00-20.00) Ratio Glucose 133 H (70-110) mg/dL Total Bilirubin <0.2 L (0.3-1.2) mg/dL Albumin 3.7 L (3.8-4.9) g/dL Albumin/Globulin Ratio 1.42 L (1.60-3.17) Ratio Assessment and Plan Assessment: Recurrent metastatic non-small cell lung cancer, patient had mini right thoracotomy with biopsy on July, revealing invasive poorly differentiated non-small cell carcinoma consistent with pulmonary adenocarcinoma type. Previously maintained on chemotherapy with Alimta and carboplatin, could not tolerate side effects. PET scan taken on 07/25/2024 showing overall mixed response to therapy with slightly increased radiotracer activity throughout the right pleural and anterior right seventh rib with mild decrease in radiotracer activity within the right 10th rib and posterior costophrenic pleural region. Development of nonspecific left anterior peritoneal stranding changes with mild FDG uptake, could represent early peritoneal metastasis versus other etiologies such as infectious/inflammatory nature. Currently on Opdivo, has received 2 infusions so far. Acute COPD exacerbation, Chest x-ray: Essentially stable appearance of volume loss involving the right lung and midline shift towards the right secondary to underlying known malignancy. Minimal aeration of the right upper lung. Left lung is overall clear. Negative for influenza, RSV, COVID. Acute dyspnea secondary to combination of above Acute on chronic hypoxemic respiratory failure,, currently on 2 L/min nasal cannula Chronic pain secondary to malignancy Severe chronic obstructive pulmonary disease, with an FEV1 31% of predicted Chronic hypoxemic respiratory failure, uses 2 L/min nasal cannula as needed at home Former tobacco smoker History of pulmonary embolism, chronically anticoagulated on Eliquis Normocytic, normochromic anemia, no acute blood loss noted Plan: Clinically stable and the patient has improved Stable on 2 L of oxygen by nasal cannula Continue Continue Symbicort inhaler Continue IV Solu-Medrol and switch the patient to a prednisone burst taper at time of discharge Resume analgesics for cancer pain Continue Eliquis IV fluids to KVO Home medication resumed No clear indication for immunotherapy induced pneumonitis Should be able to go home as long as she is able to get up and walk and perform routine day-to-day activities. This will be evaluated by the medical team.
== END 2024-10-20 14:00 | disposition home health service (06) ==
LOC: EC 19:19 → 5NMEDONC 10-18 00:50
PROVIDERS: ADMIT Internal Medicine; ATTEND Internal Medicine
DX: C34.90 Malignant neoplasm of unspecified part of unspecified bronchus or lung (principal); C79.51 Secondary malignant neoplasm of bone; J96.21 Acute and chronic respiratory failure with hypoxia; J44.1 Chronic obstructive pulmonary disease with (acute) exacerbation; G89.3 Neoplasm related pain (acute) (chronic); E78.5 Hyperlipidemia, unspecified; K21.9 Gastro-esophageal reflux disease without esophagitis; D64.9 Anemia, unspecified; E87.1 Hypo-osmolality and hyponatremia; R22.41 Localized swelling, mass and lump, right lower limb; R00.0 Tachycardia, unspecified; R79.89 Other specified abnormal findings of blood chemistry; E88.09 Other disorders of plasma-protein metabolism, not elsewhere classified; Z86.16 Personal history of COVID-19; Z86.711 Personal history of pulmonary embolism; Z87.891 Personal history of nicotine dependence; Z99.81 Dependence on supplemental oxygen; Z79.51 Long term (current) use of inhaled steroids; Z79.01 Long term (current) use of anticoagulants; Z79.899 Other long term (current) drug therapy; Z88.2 Allergy status to sulfonamides
CPT/HCPCS: 96376 ×4; 96374; 96375; 99285; 36415; 94640 ×4; 93005; 85379; 83880; 80053 ×3; 83605; 83735; 84484; 85025 ×2; 85027; 85610; 85730; 87636; 71046; 93971; 71275; G0378 ×3; J2060; J2405; J1171 ×2; Q9967; J2919 ×3

== ENCOUNTER 2024-11-02 17:22 | Emergency (ER) | payer OTHER ==
--- NOTE | 2024-11-02 17:39 | ED ---
General Adult HPI - General Chief complaint: Shortness of Breath Stated complaint: STG 4 LG Cncr/Coughing blood clots Time Seen by Provider: 11/02/24 17:36 Source: patient, family, RN notes reviewed Mode of arrival: wheelchair Limitations: no limitations - History of Present Illness Initial comments: This is a 59-year-old female with a history of stage IV metastatic lung cancer, COPD, and PE on Eliquis, presenting to the emergency department for hemoptysis. Patient states on Monday this week she had an episode of hemoptysis that was roughly the size of a dime. Approximately 1 hour prior to arrival she had an episode of hemoptysis that was larger in size about the size of a quarter prompting her to report to the emergency department. Patient does have baseline dyspnea however denies worsening symptoms. She denies chest pain, orthopnea, exertional dyspnea, peripheral edema, dizziness, lightheadedness. She denies hematochezia, melena, epistaxis, rhinorrhea, congestion, headaches. Patient has chronic chest and back pain due to cancer diagnosis and takes gabapentin and Crete for pain. Patient is scheduled to see her hand packager, Dr. Adams, on Monday in addition to see being immunotherapy infusion for lung cancer treatment. - Related Data Home Medications Medication Instructions Recorded Confirmed Albuterol Inhaler [Ventolin Hfa 2 puff INHALATION RT-Q6H PRN 09/17/19 10/18/24 Inhaler] Cetirizine HCl [Zyrtec] 10 mg PO DAILY 06/21/22 10/18/24 Omeprazole Magnesium [PriLOSEC OTC] 20 mg PO DAILY 06/21/22 10/18/24 Budesonide-Formot 160-4.5 Mcg 2 puff INHALATION RT-BID 02/28/23 10/18/24 [Symbicort 160-4.5 Mcg Inhaler] Gabapentin [Neurontin] 300 mg PO TID 02/28/23 10/18/24 Sennosides/Docusate Sodium [Senna 1 cap PO BID PRN 02/28/23 10/18/24 Plus 8.6-50 mg Softgel] Folic Acid 1 mg PO DAILY 01/05/24 10/18/24 HYDROcodone/APAP 10-325MG [Crete 1 tab PO Q6HR PRN 01/05/24 10/18/24 10-325] Lidocaine/Menthol [Asperflex Max 1 patch TRANSDERM DAILY PRN 01/05/24 10/18/24 4%-1% Patch] Linaclotide [Linzess] 145 mcg PO DAILY PRN 01/05/24 10/18/24 Ondansetron Odt [Zofran ODT] 8 mg PO Q6H PRN 01/05/24 10/18/24 Previous Rx's Medication Instructions Recorded Apixaban [Eliquis] 5 mg PO BID 30 Days #60 tab 06/24/22 Ipratropium-Albuterol Nebulize 3 ml INHALATION RT-QID 30 Days 06/24/22 [Duoneb 0.5 mg-3 mg/3 ml Soln] #300 ml guaiFENesin [Mucinex] 600 mg PO Q12HR PRN #30 tab 01/08/24 fentaNYL 50MCG/HR PATCH [Duragesic 1 patch TRANSDERM Q72H patch 10/20/24 50MCG/HR] predniSONE See Taper PO DIRECTED 12 Days 10/20/24 #30 tab Allergies Allergy/AdvReac Type Severity Reaction Status Date / Time sulfamethoxazole Allergy Rash/Hives Verified 11/02/24 17:29 [From Bactrim] trimethoprim [From Bactrim] Allergy Rash/Hives Verified 11/02/24 17:29 Review of Systems ROS Statement: Those systems with pertinent positive or pertinent negative responses have been documented in the HPI. ROS Other: All systems not noted in ROS Statement are negative. Past Medical History Past Medical History: Cancer, COPD, GERD/Reflux, Hyperlipidemia, Pulmonary Embolus (PE) Additional Past Medical History / Comment(s): Current back and rib cancer. Ovarian cyst. Hx lung cancer 2018 w/wedge resection left upper lobe Oct 2019, hx PE 06/21/22, right lower lobe resection for lung cancer February 2020, had 4 rounds of chemo after that and was cancer free until February 2023. Started immunotherapy every 4 weeks. Last chemotherapy was April 2024. History of Any Multi-Drug Resistant Organisms: None Reported Past Surgical History: Orthopedic Surgery, Tonsillectomy Additional Past Surgical History / Comment(s): Right hand surgery, ectopic surgery, lung resection of left upper lobe and right lower lobe, 1994 had lymph nodes removed from right armpit. Past Anesthesia/Blood Transfusion Reactions: Motion Sickness Additional Past Anesthesia/Blood Transfusion Reaction / Comment(s): motion sickness in the car Past Psychological History: No Psychological Hx Reported Smoking Status: Former smoker Past Alcohol Use History: None Reported Past Drug Use History: None Reported - Past Family History Father Family Medical History: Cancer Mother Family Medical History: Cancer, Deep Vein Thrombosis (DVT), Pulmonary Embolus General Exam Limitations: no limitations Eye exam: Present: normal appearance, PERRL, EOMI. Absent: scleral icterus, conjunctival injection, periorbital swelling Neck exam: Present: normal inspection. Absent: tenderness, meningismus, lymphadenopathy Respiratory exam: Present: normal lung sounds bilaterally, wheezes, decreased breath sounds (right lower lung field). Absent: respiratory distress, rales, rhonchi, stridor Cardiovascular Exam: Present: normal rhythm, tachycardia, normal heart sounds. Absent: systolic murmur, diastolic murmur, rubs, gallop, clicks GI/Abdominal exam: Present: soft, normal bowel sounds. Absent: distended, tenderness, guarding, rebound, rigid Extremities exam: Present: normal inspection, full ROM, normal capillary refill. Absent: tenderness, pedal edema, joint swelling, calf tenderness Course Vital Signs 11/02/24 11/02/24 11/02/24 17:29 17:38 20:09 Temperature 98.2 F 98 F Pulse Rate 119 H 99 Respiratory 20 20 18 Rate Blood Pressure 132/63 126/75 O2 Sat by Pulse 98 95 Oximetry Medical Decision Making - Medical Decision Making Was pt. sent in by a medical professional or institution (, PA, ALARM INSTALLER, urgent care, hospital, or penitentiary...) When possible be specific @ -No Did you speak to anyone other than the patient for history (EMS, parent, family, police, friend...)? What history was obtained from this source @ -No Did you review nursing and triage notes (agree or disagree)? Why? @ -I reviewed and agree with nursing and triage notes Were old charts reviewed (outside hosp., previous admission, EMS record, old EKG, old radiological studies, urgent care reports/EKG's, penitentiary records)? Report findings @ -CTA of the chest was completed on 10/19/2024 with no evidence of pulmonary embolism with a bright red sift in the mediastinum and small right pleural effusion with trace left pleural effusion Differential Diagnosis (chest pain, altered mental status, abdominal pain women, abdominal pain men, vaginal bleeding, weakness, fever, dyspnea, syncope, headache, dizziness, GI bleed, back pain, seizure, CVA, palpatations, mental health, musculoskeletal)? @ -Differential Dyspnea: Coronary syndrome, arrhythmia, tamponade, asthma, COPD, pulmonary embolism, pneumonia, pneumothorax, pulmonary effusion, anaphylaxis, diabetic ketoacidosis, flailed chest, pulmonary contusion, diaphragmatic rupture, anemia, neuromuscular, this is not meant to be an all-inclusive list. EKG interpreted by me (3pts min.). @ -Completed at 1810 sinus tachycardia with a ventricular rate of 104, SD interval 135, QRS 79, QTc 379. X-rays interpreted by me (1pt min.). @ -Chest x-ray reveals a near complete opacification of the right hemithorax that is overall not significantly changed from study of 10/17/2024. CT interpreted by me (1pt min.). @ -None done U/S interpreted by me (1pt. min.). @ -None done What testing was considered but not performed or refused? (CT, X-rays, U/S, labs)? Why? @ -None What meds were considered but not given or refused? Why? @ -None Did you discuss the management of the patient with other professionals (professionals i.e. , PA, ALARM INSTALLER, lab, RT, psych nurse, home health care social worker, front end architect, teacher, founder chairman and chief creative officer, showcase maker)? Give summary @ -No Was smoking cessation discussed for >3mins.? @ -No Was critical care preformed (if so, how long)? @ -No Were there social determinants of health that impacted care today? How? (Homelessness, low income, unemployed, alcoholism, drug addiction, t ransportation, low edu. Level, literacy, decrease access to med. care, senior care, rehab)? @ -No Was there de-escalation of care discussed even if they declined (Discuss DNR or withdrawal of care, Hospice)? DNR status @ -No What co-morbidities impacted this encounter? (DM, HTN, Smoking, COPD, CAD, Cancer, CVA, ARF, Chemo, Hep., AIDS, mental health diagnosis, sleep apnea, morbid obesity)? @ -None Was patient admitted / discharged? Hospital course, mention meds given and route, prescriptions, significant lab abnormalities, going to OR and other pertinent info. @ -Discharge. 59-year-old female presenting with hemoptysis. Patient noted be tachycardic on arrival with heart rate of 119 over patient states that this is baseline for her as she has baseline tachycardia. Patient denies chest pain, worsening dyspnea,, heart palpitations, dizziness lightheadedness. Patient will undergo cardiac evaluation including chest x-ray, EKG and laboratory studies. EKG is in sinus rhythm. D-dimer is separate this time this patient and is not exhibiting signs of worsening shortness of breath in addition CTA of the chest was completed on 10/19/2024 with no acute findings. Laboratory studies renuka rkable for leukocytosis of 15.6, anemia with hemoglobin 10.1 hematocrit 32.6 that appears baseline. Hyponatremia of 131. Troponin nonelevated. Chest x-ray unremarkable compared to previous studies. Patient's vitals have been stable on duration emergency department visit and patient has not had an episode of mopped assist. Additionally, oxygen saturation stable. Patient is stable for discharg e at this time and recommend that she follows closely outpatient with hand packager and oncologist as scheduled return back to the emergency department for any new or worsening symptoms. Case discussed with Dr. Brink Undiagnosed new problem with uncertain prognosis? @ -No Drug Therapy requiring intensive monitoring for toxicity (Heparin, Nitro, Insulin, Cardizem)? @ -No Were any procedures done? @ -No Diagnosis/symptom? @ -hemoptysis, metastatic lung cancer Acute, or Chronic, or Acute on Chronic? @ -Acute Uncomplicated (without systemic symptoms) or Complicated (systemic symptoms)? @ -Uncomplicated Side effects of treatment? @ -No Exacerbation, Progression, or Severe Exacerbation? @ -No Poses a threat to life or bodily function? How? (Chest pain, USA, OR, pneumonia, PE, COPD, DKA, ARF, appy, cholecystitis, CVA, Diverticulitis, Homicidal, Suicidal, threat to staff... and all critical care pts) @ -No - Lab Data Result diagrams: 11/02/24 18:23 11/02/24 18:23 Lab Results 11/02/24 11/02/24 11/02/24 Range/Units 18:23 18:23 18:23 WBC 15.6 H (3.8-10.6) k/uL RBC 3.67 L (3.80-5.40) m/uL Hgb 10.1 L (11.4-16.0) gm/dL Hct 32.6 L (34.0-46.0) % MCV 89.0 (80.0-100.0) fL MCH 27.4 (25.0-35.0) pg MCHC 30.8 L (31.0-37.0) g/dL RDW 17.6 H (11.5-15.5) % Plt Count 408 (150-450) k/uL MPV 7.2 Neutrophils % 71 % Lymphocytes % 21 % Monocytes % 5 % Eosinophils % 1 % Basophils % 0 % Neutrophils # 11.1 H (1.3-7.7) k/uL Lymphocytes # 3.3 (1.0-4.8) k/uL Monocytes # 0.8 (0-1.0) k/uL Eosinophils # 0.1 (0-0.7) k/uL Basophils # 0.0 (0-0.2) k/uL Hypochromasia Marked Anisocytosis Slight PT 11.6 (10.0-12.5) sec INR 1.1 (<1.2) APTT 20.9 L (22.0-30.0) sec Sodium 131 L (137-145) mmol/L Potassium 4.4 (3.5-5.1) mmol/L Chloride 96 L (98-107) mmol/L Carbon Dioxide 29 (22-30) mmol/L Anion Gap 6 mmol/L BUN 21 H (7-17) mg/dL Creatinine 0.69 (0.52-1.04) mg/dL Est GFR (CKD-EPI)AfAm >90 (>60 ml/min/1.73 sqM) Est GFR (CKD-EPI)NonAf >90 (>60 ml/min/1.73 sqM) Glucose 78 (74-99) mg/dL Calcium 8.8 (8.4-10.2) mg/dL Magnesium 2.1 (1.6-2.3) mg/dL Total Bilirubin 0.7 (0.2-1.3) mg/dL AST 29 (14-36) U/L ALT 15 (4-34) U/L Alkaline Phosphatase 77 (38-126) U/L Troponin I (0.000-0.034) ng/mL Total Protein 5.9 L (6.3-8.2) g/dL Albumin 3.5 (3.5-5.0) g/dL 11/02/24 Range/Units 18:23 WBC (3.8-10.6) k/uL RBC (3.80-5.40) m/uL Hgb (11.4-16.0) gm/dL Hct (34.0-46.0) % MCV (80.0-100.0) fL MCH (25.0-35.0) pg MCHC (31.0-37.0) g/dL RDW (11.5-15.5) % Plt Count (150-450) k/uL MPV Neutrophils % % Lymphocytes % % Monocytes % % Eosinophils % % Basophils % % Neutrophils # (1.3-7.7) k/uL Lymphocytes # (1.0-4.8) k/uL Monocytes # (0-1.0) k/uL Eosinophils # (0-0.7) k/uL Basophils # (0-0.2) k/uL Hypochromasia Anisocytosis PT (10.0-12.5) sec INR (<1.2) APTT (22.0-30.0) sec Sodium (137-145) mmol/L Potassium (3.5-5.1) mmol/L Chloride (98-107) mmol/L Carbon Dioxide (22-30) mmol/L Anion Gap mmol/L BUN (7-17) mg/dL Creatinine (0.52-1.04) mg/dL Est GFR (CKD-EPI)AfAm (>60 ml/min/1.73 sqM) Est GFR (CKD-EPI)NonAf (>60 ml/min/1.73 sqM) Glucose (74-99) mg/dL Calcium (8.4-10.2) mg/dL Magnesium (1.6-2.3) mg/dL Total Bilirubin (0.2-1.3) mg/dL AST (14-36) U/L ALT (4-34) U/L Alkaline Phosphatase (38-126) U/L Troponin I <0.012 (0.000-0.034) ng/mL Total Protein (6.3-8.2) g/dL Albumin (3.5-5.0) g/dL Disposition Clinical Impression: Hemoptysis Disposition: HOME SELF-CARE Condition: Good Instructions (If sedation given, give patient instructions): Coughing Up Blood (Hemoptysis) (ED) Additional Instructions: Please return to the Emergency Department if symptoms worsen or any other concerns. Is patient prescribed a controlled substance at d/c from ED?: No Referrals: Rao Foster MD [Primary Care Provider] - 1-2 days Time of Disposition: 19:55
[2024-11-02 18:51] LABS: Anisocytosis Slight; Basophils % (A) 0 %; Eosinophils # (A) 0.1 k/uL (0-0.7); Eosinophils % (A) 1 %; HCT 32.6 % (34.0-46.0); HGB 10.1 gm/dL (11.4-16.0); Hypochromasia Marked; Lymphocytes # (A) 3.3 k/uL (1.0-4.8); Lymphocytes % (A) 21 %; MCH 27.4 pg (25.0-35.0); MCHC 30.8 g/dL (31.0-37.0); Mean Platelet Volume 7.2; Monocytes # (A) 0.8 k/uL (0-1.0); Monocytes % (A) 5 %; Neutrophils # (A) 11.1 k/uL (1.3-7.7); Neutrophils % (A) 71 %; Platelet Count 408 k/uL (150-450); RBC 3.67 m/uL (3.80-5.40); RDW 17.6 % (11.5-15.5); WBC 15.6 k/uL (3.8-10.6)
--- NOTE | 2024-11-02 18:51 | XR ---
EXAMINATION TYPE: XR chest 2V DATE OF EXAM: 11/02/2024 6:45 PM COMPARISON: Multiple prior chest x-rays, most recently dated 10/17/2004. CLINICAL INDICATION: Female, 59 years old with history of hemoptysis, hx stage IV lung CA; [facility] TECHNIQUE: XR chest 2V Frontal and lateral views of the chest. FINDINGS: Cardiac silhouette partially obscured. Right lung volume loss and rightward mediastinal shift. Near-complete opacification of the right hemithorax, not significantly changed from prior study 10/17. Possible trace left-sided pleural effusion. Right chest wall port catheter with distal catheter tip in stable positioning. IMPRESSION: Near complete opacification of the right hemithorax, overall, not significantly changed from most rec ent prior study 10/17/2024. [facility], , 11/02/2024 6:49 PM
[2024-11-02 19:11] LABS: INR 1.1 (<1.2); Prothrombin Time 11.6 sec (10.0-12.5)
[2024-11-02 19:13] LABS: ALT 15 U/L (4-34); African American GFR (CKD) >90 (>60 ml/min/1.73 sqM); Albumin 3.5 g/dL (3.5-5.0); Anion Gap 6 mmol/L; Blood Urea Nitrogen 21 mg/dL (7-17); Calcium 8.8 mg/dL (8.4-10.2); Carbon Dioxide 29 mmol/L (22-30); Chloride 96 mmol/L (98-107); Glucose 78 mg/dL (74-99); Non-African American GFR(CKD) >90 (>60 ml/min/1.73 sqM); Sodium 131 mmol/L (137-145); Total Bilirubin 0.7 mg/dL (0.2-1.3); Total Protein 5.9 g/dL (6.3-8.2)
[2024-11-02 19:17] LABS: Partial Thromboplastin Time 20.9 sec (22.0-30.0)
[2024-11-02 19:27] LABS: AST 29 U/L (14-36); Alkaline Phosphatase 77 U/L (38-126); Magnesium 2.1 mg/dL (1.6-2.3); Potassium 4.4 mmol/L (3.5-5.1)
[2024-11-02 20:12] VITALS: BP 126/75; PULSE 99; RESP 18; TEMP 98
== END 2024-11-02 20:17 | disposition home or self-care (01) ==
LOC: EC 17:22
DX: R04.2 Hemoptysis (principal); Z87.891 Personal history of nicotine dependence; Z88.1 Allergy status to other antibiotic agents; Z88.2 Allergy status to sulfonamides
CPT/HCPCS: 36415; 71046; 80053; 83735; 84484; 85025; 85610; 85730; 93005; 99285

== ENCOUNTER → 2024-11-07 | Outpatient (CLI) | payer OTHER ==
--- NOTE | 2024-11-07 09:30 | CT ---
EXAMINATION TYPE: CT chest w con DATE OF EXAM: 11/07/2024 COMPARISON: 06/27/2023 and 10/19/2024 HISTORY: 59-year-old female C3 4.31, history of lung cancer . TECHNIQUE: Contiguous axial scanning of the chest after the administration of 100 mL of Isovue 300. Coronal/sagittal reconstructions performed. CT DLP: 205.8mGycm. Automatic exposure control utilized for a dose reduction. FINDINGS: Mild generalized anasarca unchanged. There is similar volume loss right hemithorax. Heart normal size with trace basilar pericardial fluid which is unchanged. Aorta normal caliber with conventional arch vessel branching anatomy. Trace bilateral pleural effusions are present. Chronic diffusion weighted areas of loculation suggest s at the posteromedial right hemithorax measuring 2.2 x 1.5 cm and anteromedial mid lung measuring up to 1.2 cm thick relatively similar. Pleural rind throughout the right hemithorax measuring up to 1.9 cm thick at the apex is similar thou gh increased now at the lower lung measuring up to 2.3 cm. Also increased is additional patchy and confluent opacity throughout the left lower lung. Low right paratracheal soft tissue nodularity at 1.6 cm is unchanged. Moderate emphysematous change with similar strandy scarring and atelectasis on the left. A couple pulmonary nodules measuring 7 mm left lower lobe and 4 mm left upper lobe appear to be new a nd should be reassessed at follow-up. A few additional 3 mm and smaller nodules on the left remain un changed. There is new complex ascites fluid now present throughout the visualized upper abdomen surrounding an d scalloping the left liver lobe and various bowel loops. Right anterior chest wall injection port with catheter tip at the lower SVC. No osseous destructive process seen. IMPRESSION: 1. New complex ascites fluid partially visualized in the upper abdomen scalloping the left liver lobe and surrounding some upper abdominal bowel loops. Recommend further clinical workup as to etiology i ncluding the possibility of disease progression. 2. A couple pulmonary nodules on the left measuring up to 7 mm are new from 2022 but similar from the recent 10/19/2024 exam. Appropriate follow-up to exclude metastatic disease. 3. Ongoing volume loss and extensive pleural-parenchymal opacities throughout the right hemithorax. P leural rind at the lower lung has increased compared to 202. Confluent lower lung opacities have als o increased compared to 202 but show some improvement from the recent 10/19/2024 prior. Ongoing foll ow-up to exclude residual/recurrent disease with possible superimposed improving infiltrates. [facility], , 11/07/2024 9:28 AM
== END | disposition home or self-care (01) ==
LOC: RADCTMAIN 07:57
PROVIDERS: ATTEND Internal Medicine Hematology & Oncology
DX: C34.31 Malignant neoplasm of lower lobe, right bronchus or lung (principal); R18.8 Other ascites; R91.8 Other nonspecific abnormal finding of lung field
CPT/HCPCS: 71260; Q9967

== ENCOUNTER 2024-11-11 16:40 | Inpatient (IN) | payer OTHER ==
--- NOTE | 2024-11-11 17:09 | ED ---
SOB HPI - General Source: patient, RN notes reviewed Mode of arrival: wheelchair Limitations: no limitations <Latanya Pérez - Last Filed: 11/11/24 17:08> <Harrison Brink - Last Filed: 11/11/24 20:04> - General Stated Complaint: Sob, coughing up blood Time Seen by Provider: 11/11/24 17:08 - History of Present Illness Initial Comments: Quick note: 59-year-old female presented to the ER for evaluation of shortness of breath and hemoptysis. Patient is following up with Dr. Castillo for lung cancer. She is not currently on any chemotherapy or radiation but is scheduled for immunotherapy. Patient states in the past 2 weeks she has been experiencing hemoptysis and heartburn. Patient is on blood thinners. Patient underwent chest CT on Monday of last week. Patient also admits to nausea, vomiting and abdominal pain. No known fevers. (Latanya Pérez) - Related Data Home Medications Medication Instructions Recorded Confirmed Albuterol Inhaler [Ventolin Hfa 2 puff INHALATION RT-Q6H PRN 09/17/19 10/18/24 Inhaler] Cetirizine HCl [Zyrtec] 10 mg PO DAILY 06/21/22 10/18/24 Omeprazole Magnesium [PriLOSEC OTC] 20 mg PO DAILY 06/21/22 10/18/24 Budesonide-Formot 160-4.5 Mcg 2 puff INHALATION RT-BID 02/28/23 10/18/24 [Symbicort 160-4.5 Mcg Inhaler] Gabapentin [Neurontin] 300 mg PO TID 02/28/23 10/18/24 Sennosides/Docusate Sodium [Senna 1 cap PO BID PRN 02/28/23 10/18/24 Plus 8.6-50 mg Softgel] Folic Acid 1 mg PO DAILY 01/05/24 10/18/24 HYDROcodone/APAP 10-325MG [[place] 1 tab PO Q6HR PRN 01/05/24 10/18/24 10-325] Lidocaine/Menthol [Asperflex Max 1 patch TRANSDERM DAILY PRN 01/05/24 10/18/24 4%-1% Patch] Linaclotide [Linzess] 145 mcg PO DAILY PRN 01/05/24 10/18/24 Ondansetron Odt [Zofran ODT] 8 mg PO Q6H PRN 01/05/24 10/18/24 Previous Rx's Medication Instructions Recorded Apixaban [Eliquis] 5 mg PO BID 30 Days #60 tab 06/24/22 Ipratropium-Albuterol Nebulize 3 ml INHALATION RT-QID 30 Days 06/24/22 [Duoneb 0.5 mg-3 mg/3 ml Soln] #300 ml guaiFENesin [Mucinex] 600 mg PO Q12HR PRN #30 tab 01/08/24 fentaNYL 50MCG/HR PATCH [Duragesic 1 patch TRANSDERM Q72H patch 10/20/24 50MCG/HR] predniSONE See Taper PO DIRECTED 12 Days 10/20/24 #30 tab Allergies Allergy/AdvReac Type Severity Reaction Status Date / Time sulfamethoxazole Allergy Rash/Hives Verified 11/11/24 17:03 [From Bactrim] trimethoprim [From Bactrim] Allergy Rash/Hives Verified 11/11/24 17:03 Review of Systems ROS Other: All systems not noted in ROS Statement are negative. <Latanya Pérez - Last Filed: 11/11/24 17:08> ROS Other: All systems not noted in ROS Statement are negative. <Harrison Brink - Last Filed: 11/11/24 20:04> ROS Statement: Those systems with pertinent positive or pertinent negative responses have been documented in the HPI. Past Medical History Past Medical History: Cancer, COPD, GERD/Reflux, Hyperlipidemia, Pulmonary Embolus (PE) Additional Past Medical History / Comment(s): Current back and rib cancer. Ovarian cyst. Hx lung cancer 2018 w/wedge resection left upper lobe Oct 2019, hx PE 06/21/22, right lower lobe resection for lung cancer February 2020, had 4 rounds of chemo after that and was cancer free until February 2023. Started immunotherapy every 4 weeks. Last chemotherapy was April 2024. History of Any Multi-Drug Resistant Organisms: None Reported Past Surgical History: Orthopedic Surgery, Tonsillectomy Additional Past Surgical History / Comment(s): Right hand surgery, ectopic surgery, lung resection of left upper lobe and right lower lobe, 1994 had lymph nodes removed from right armpit. Past Anesthesia/Blood Transfusion Reactions: Motion Sickness Additional Past Anesthesia/Blood Transfusion Reaction / Comment(s): motion sickness in the car Past Psychological History: No Psychological Hx Reported Smoking Status: Former smoker Past Alcohol Use History: None Reported Past Drug Use History: None Reported - Past Family History Father Family Medical History: Cancer Mother Family Medical History: Cancer, Deep Vein Thrombosis (DVT), Pulmonary Embolus <Latanya Pérez - Last Filed: 11/11/24 17:08> General Exam Limitations: no limitations <Latanya Pérez - Last Filed: 11/11/24 17:08> General appearance: alert, in no apparent distress Head exam: Present: atraumatic, normocephalic Eye exam: Present: normal appearance, PERRL ENT exam: Present: mucous membranes dry Neck exam: Present: normal inspection. Absent: tenderness Respiratory exam: Present: respiratory distress, decreased breath sounds (On the right) Cardiovascular Exam: Present: normal rhythm, tachycardia GI/Abdominal exam: Present: soft. Absent: distended, tenderness, guarding Neurological exam: Present: alert, oriented X3, CN II-XII intact. Absent: motor sensory deficit Skin exam: Present: warm, dry, intact <Harrison Brink - Last Filed: 11/11/24 20:04> - General Exam Comments Initial Comments: Visual Physical Exam Vital signs reviewed General: Well-appearing, nontoxic, no acute distress. Head: Normocephalic, atraumatic Eyes: PERRLA, EOMI ENT: Airway patent Chest: Nonlabored breathing Skin: No visual rash, normal skin tone Neuro: Alert and oriented 3 Musculoskeletal: No gross abnormalities (Latanya Pérez) Course Vital Signs 11/11/24 11/11/24 17:03 17:45 Temperature 97.9 F Pulse Rate 123 H Respiratory 18 16 Rate Blood Pressure 120/73 O2 Sat by Pulse 96 Oximetry Medical Decision Making <Latanya Pérez - Last Filed: 11/11/24 17:08> - Lab Data Result diagrams: 11/11/24 17:45 11/11/24 17:45 <Harrison Brink - Last Filed: 11/11/24 20:04> - Medical Decision Making I performed the quick note portion of this chart. Electronically signed by Latanya Pérez PA-C (Latanya Pérez) Was pt. sent in by a medical professional or institution ([facility] Cardoza, TELEVISION ANALYZER, urgent ca re, hospital, or custodial...) When possible be specific @ -No Did you speak to anyone other than the patient for history (EMS, parent, family, police, friend...)? What history was obtained from this source @ -No Did you review nursing and triage notes (agree or disagree)? Why? @ -I reviewed and agree with nursing and triage notes Were old charts reviewed (outside hosp., previous admission, EMS record, old EKG, old radiological studies, urgent care reports/EKG's, custodial records)? Report findings @ -No old charts were reviewed Differential Dyspnea: Coronary syndrome, arrhythmia, tamponade, asthma, COPD, pulmonary embolism, pneumonia, pneumothorax, pulmonary effusion, anaphylaxis, diabetic ketoacidosis, flailed chest, pulmonary contusion, diaphragmatic rupture, anemia, neuro muscular, this is not meant to be an all-inclusive list. EKG interpreted by me (3pts min.). @ -Sinus tachycardia rate of 116, RI interval 124, QRS duration 84, QTc [address] segment elevation. X-rays interpreted by me (1pt min.). @Chest x-ray shows large right pleural effusion, KUB showing moderate stool burden CT interpreted by me (1pt min.). @ -None done U/S interpreted by me (1pt. min.). @ -None done What testing was considered but not performed or refused? (CT, X-rays, U/S, labs)? Why? @ -None What meds were considered but not given or refused? Why? @ -None Did you discuss the management of the patient with other professionals (professionals i.e. MARY Cardoza, TELEVISION ANALYZER, lab, RT, psych nurse, social services manager, commercial account manager, teacher, community service officer, home health care case manager)? Give summary @ -[Case discussed with Dr. Tatum who will admit Was smoking cessation discussed for >3mins.? @ -No Was critical care preformed (if so, how long)? @ -No Were there social determinants of health that impacted care today? How? (Homelessness, low income, unemployed, alcoholism, drug addiction, transportation, low edu. Level, literacy, decrease access to med. care, senior living, rehab)? @ -No Was there de-escalation of care discussed even if they declined (Discuss DNR or withdrawal of care, Hospice)? DNR status @ -No What co-morbidities impacted this encounter? (DM, HTN, Smoking, COPD, CAD, Cancer, CVA, ARF, Chemo, Hep., AIDS, mental health diagnosis, sleep apnea, morbid obesity)? @Active lung cancer Was patient admitted / discharged? Hospital course, mention meds given and route, prescriptions, significant lab abnormalities, going to OR and other pertinent info. @ -59-year-old female with lung CA undergoing treatment presenting with dyspnea, hemoptysis which has been an ongoing issue for several weeks. Patient is presenting with dehydration, nausea vomiting, generalized weakness. Chest x- ray does reveal large right pleural effusion. X-ray of the abdomen shows moderate stool burden consistent with constipation. Patient has not been able to eat or drink and is experiencing pain. She will be admitted for symptom control. Consultation with oncology and pulmonology. Undiagnosed new problem with uncertain prognosis? @ -No Drug Therapy requiring intensive monitoring for toxicity (Heparin, Nitro, Insul in, Cardizem)? @ -No Were any procedures done? @ -No Diagnosis/symptom? @ -Lung cancer, nausea vomiting, dehydration Acute, or Chronic, or Acute on Chronic? @ -[Acute on chronic Uncomplicated (without systemic symptoms) or Complicated (systemic symptoms)? @ -Default Side effects of treatment? @ -No Exacerbation, Progression, or Severe Exacerbation? @ -No Poses a threat to life or bodily function? How? (Chest pain, [place], [place], pneumonia, PE, COPD, DKA, ARF, appy, cholecystitis, CVA, Diverticulitis, Homicidal, Suicidal, threat to staff... and all critical care pts) @ -[Yes, progressive lung CA with metastasis (Harrison Brink) - Lab Data Lab Results 11/11/24 11/11/24 11/11/24 Range/Units 17:45 17:45 17:45 WBC 11.6 H (3.8-10.6) k/uL RBC 3.76 L (3.80-5.40) m/uL Hgb 10.1 L (11.4-16.0) gm/dL Hct 33.0 L (34.0-46.0) % MCV 87.8 (80.0-100.0) fL MCH 27.0 (25.0-35.0) pg MCHC 30.7 L (31.0-37.0) g/dL RDW 17.5 H (11.5-15.5) % Plt Count 453 H (150-450) k/uL MPV 8.0 Neutrophils % 80 % Lymphocytes % 12 % Monocytes % 6 % Eosinophils % 0 % Basophils % 0 % Neutrophils # 9.3 H (1.3-7.7) k/uL Lymphocytes # 1.4 (1.0-4.8) k/uL Monocytes # 0.6 (0-1.0) k/uL Eosinophils # 0.0 (0-0.7) k/uL Basophils # 0.0 (0-0.2) k/uL Hypochromasia Marked Anisocytosis Slight PT 11.1 (10.0-12.5) sec INR 1.0 (<1.2) APTT 21.6 L (22.0-30.0) sec Sodium 131 L (137-145) mmol/L Potassium 4.1 (3.5-5.1) mmol/L Chloride 91 L (98-107) mmol/L Carbon Dioxide 27 (22-30) mmol/L Anion Gap 13 mmol/L BUN 22 H (7-17) mg/dL Creatinine 0.80 (0.52-1.04) mg/dL Est GFR (CKD-EPI)AfAm >90 (>60 ml/min/1.73 sqM) Est GFR (CKD-EPI)NonAf 80 (>60 ml/min/1.73 sqM) Glucose 79 (74-99) mg/dL Calcium 9.3 (8.4-10.2) mg/dL Magnesium 1.9 (1.6-2.3) mg/dL Total Bilirubin 0.4 (0.2-1.3) mg/dL AST 30 (14-36) U/L ALT 17 (4-34) U/L Alkaline Phosphatase 107 (38-126) U/L Troponin I (0.000-0.034) ng/mL Total Protein 5.7 L (6.3-8.2) g/dL Albumin 3.3 L (3.5-5.0) g/dL Influenza Type A (PCR) (Not Detectd) Influenza Type B (PCR) (Not Detectd) RSV (PCR) (Not Detectd) SARS-CoV-2 (PCR) (Not Detectd) 11/11/24 11/11/24 Range/Units 17:45 17:45 WBC (3.8-10.6) k/uL RBC (3.80-5.40) m/uL Hgb (11.4-16.0) gm/dL Hct (34.0-46.0) % MCV (80.0-100.0) fL MCH (25.0-35.0) pg MCHC (31.0-37.0) g/dL RDW (11.5-15.5) % Plt Count (150-450) k/uL MPV Neutrophils % % Lymphocytes % % Monocytes % % Eosinophils % % Basophils % % Neutrophils # (1.3-7.7) k/uL Lymphocytes # (1.0-4.8) k/uL Monocytes # (0-1.0) k/uL Eosinophils # (0-0.7) k/uL Basophils # (0-0.2) k/uL Hypochromasia Anisocytosis PT (10.0-12.5) sec INR (<1.2) APTT (22.0-30.0) sec Sodium (137-145) mmol/L Potassium (3.5-5.1) mmol/L Chloride (98-107) mmol/L Carbon Dioxide (22-30) mmol/L Anion Gap mmol/L BUN (7-17) mg/dL Creatinine (0.52-1.04) mg/dL Est GFR (CKD-EPI)AfAm (>60 ml/min/1.73 sqM) Est GFR (CKD-EPI)NonAf (>60 ml/min/1.73 sqM) Glucose (74-99) mg/dL Calcium (8.4-10.2) mg/dL Magnesium (1.6-2.3) mg/dL Total Bilirubin (0.2-1.3) mg/dL AST (14-36) U/L ALT (4-34) U/L Alkaline Phosphatase (38-126) U/L Troponin I 0.019 (0.000-0.034) ng/mL Total Protein (6.3-8.2) g/dL Albumin (3.5-5.0) g/dL Influenza Type A (PCR) Not Detected (Not Detectd) Influenza Type B (PCR) Not Detected (Not Detectd) RSV (PCR) Not Detected (Not Detectd) SARS-CoV-2 (PCR) Not Detected (Not Detectd) Disposition <Latanya Pérez - Last Filed: 11/11/24 17:08> Is patient prescribed a controlled substance at d/c from ED?: No Time of Disposition: 20:04 <Harrison Brink - Last Filed: 11/11/24 20:04> Clinical Impression: Pleural effusion, Adenocarcinoma of lung, Hemoptysis, Dehydration Disposition: ADMITTED IP TO THIS HOSP Condition: Stable Referrals: Rao Foster MD [Primary Care Provider] - 1-2 days
[2024-11-11] MEDS: HYDROmorphone 0.5 MG/0.5 ML SYRINGE IVP STA ×2 (17:36→19:20)
[2024-11-11] MEDS: PANTOPRAZOLE 40 MG/10 ML VIAL IVP STA (17:36)
[2024-11-11] MEDS: SODIUM CHLORIDE 0.9% 1,000 ML IV ONE (17:36)
[2024-11-11] MEDS: ONDANSETRON 4 MG/2 ML VIAL IVP STA ×2 (17:36→23:52)
[2024-11-11 17:58] LABS: Anisocytosis Slight; Basophils % (A) 0 %; Eosinophils % (A) 0 %; HGB 10.1 gm/dL (11.4-16.0); Hypochromasia Marked; Lymphocytes # (A) 1.4 k/uL (1.0-4.8); Lymphocytes % (A) 12 %; MCHC 30.7 g/dL (31.0-37.0); MCV 87.8 fL (80.0-100.0); Monocytes # (A) 0.6 k/uL (0-1.0); Monocytes % (A) 6 %; Neutrophils # (A) 9.3 k/uL (1.3-7.7); Neutrophils % (A) 80 %; Platelet Count 453 k/uL (150-450); RBC 3.76 m/uL (3.80-5.40); RDW 17.5 % (11.5-15.5); WBC 11.6 k/uL (3.8-10.6)
[2024-11-11 18:15] LABS: ALT 17 U/L (4-34); AST 30 U/L (14-36); African American GFR (CKD) >90 (>60 ml/min/1.73 sqM); Albumin 3.3 g/dL (3.5-5.0); Alkaline Phosphatase 107 U/L (38-126); Anion Gap 13 mmol/L; Blood Urea Nitrogen 22 mg/dL (7-17); Calcium 9.3 mg/dL (8.4-10.2); Carbon Dioxide 27 mmol/L (22-30); Chloride 91 mmol/L (98-107); Glucose 79 mg/dL (74-99); Magnesium 1.9 mg/dL (1.6-2.3); Non-African American GFR(CKD) 80 (>60 ml/min/1.73 sqM); Potassium 4.1 mmol/L (3.5-5.1); Sodium 131 mmol/L (137-145); Total Bilirubin 0.4 mg/dL (0.2-1.3); Total Protein 5.7 g/dL (6.3-8.2)
[2024-11-11 18:16] LABS: Prothrombin Time 11.1 sec (10.0-12.5)
[2024-11-11 18:18] LABS: Partial Thromboplastin Time 21.6 sec (22.0-30.0)
--- NOTE | 2024-11-11 18:23 | XR ---
EXAMINATION TYPE: XR KUB DATE OF EXAM: 11/11/2024 6:08 PM COMPARISON: 03/04/2014 CLINICAL INDICATION: Female, 59 years old with history of Abdominal pain; TECHNIQUE: One radiographic view of the abdomen was obtained. FINDINGS: There is a large stool burden, otherwise, the bowel gas pattern is nonspecific without dila ni loops of small or large bowel. . Fecal material and gas are demonstrated throughout the colon and rectum. There is no evidence for organomegaly or pneumoperitoneum. No acute osseous process. No ab normal calcifications are present. IMPRESSION: Large stool burden otherwise, Nonspecific bowel gas pattern without radiographic evidence for acute p rocess. [facility], , 11/11/2024 6:20 PM
--- NOTE | 2024-11-11 18:24 | XR ---
EXAMINATION TYPE: XR chest 2V DATE OF EXAM: 11/11/2024 6:08 PM COMPARISON: Chest radiographs from 11/02/2024. CLINICAL INDICATION: Female, 59 years old with history of difficulty breathing; [facility] TECHNIQUE: XR chest 2V Frontal and lateral views of the chest. FINDINGS: Lungs/Pleura: Near complete opacification of the right lung with similar right pleural effusion assoc iated atelectasis. There is no evidence of left pleural effusion, left focal consolidation, or pneumo thorax. Pulmonary vascularity: Unremarkable. Heart/mediastinum: Cardiomediastinal silhouette is unremarkable. Musculoskeletal: No acute osseous pathology. Other findings: None Lines/Tubes: [id number] projecting over the right hemithorax with distal tip at the cavoatrial junction. IMPRESSION: Similar right pleural effusion with associated atelectasis and hazy appearance of the right upper patricia g which is aerated and similar 11/02/2024 [facility], , 11/11/2024 6:21 PM
[2024-11-11 18:39] LABS: Influenza A Not Detected (Not Detectd); Influenza B Not Detected (Not Detectd); RSV Not Detected (Not Detectd)
[2024-11-11] MEDS: MAG HYDROX/AL HYDROX/SIMETH 30 ML CUP PO STA (19:20)
[2024-11-11] MEDS: SODIUM CHLORIDE 0.9% 1,000 ML IV SCH ×2 (19:20→20:08)
[2024-11-11] MEDS ORDERED: NALOXONE 0.4 MG/ML 1 ML VIAL IV PRN (19:59)
[2024-11-11] MEDS ORDERED: ACETAMINOPHEN TAB 325 MG TAB PO PRN (19:59)
[2024-11-11] MEDS: DOCUSATE 100 MG CAP PO SCH (20:58)
--- NOTE | 2024-11-11 21:28 | P.HPIM ---
History of Present Illness H&P Date: 11/11/24 Patient is a 59-year-old female with PMH of stage IV lung cancer managed by Dr. Camacho, COPD, GERD, hyperlipidemia, pulmonary embolism on Eliquis presents to the ER with a complaint of shortness of breath and hemoptysis that started 2 days ago. Patient describes she has been numerous episodes of hemoptysis for last 2 days associated with passing of small blood clots. Patient is also endorsing diffuse abdominal pain which states is 7 out of 10 but exacerbated with palpitation. Denies any blood in stool. She has also been endorsing nausea which has resulted in a poor appetite and has not been able to tolerate solid food for the last couple of days. Patient states that she is on Eliquis for 3 years after the episodes of pulmonary embolism. Patient denies any similar episodes of hemoptysis in the past. Patient states that she is currently being managed by Dr. Castilol at [facility]. She is due to start immunotherapy. Patient has had recurrent pleural effusions and has lost ~25 pounds over the last 3 months and has been feeling fatigue. Denies any dysphagia. Family history significant for lung cancer cancer in his 60s. At the time of interview, patient states that she is feeling much better and her nausea and vomiting are controlled. ROS: Patient is also complaining of constipation last 2 days. Patient is also endorsing heartburn and epigastric region. Patient denies any chest pain, fever, chills, weakness and numbness in upper and lower extremities. Laboratory data: WBC 11.6, hemoglobin 10.1, hematocrit 32.0, platelet count 453, PT 12.1, INR 1.0, APTT 21.6, sodium 131, potassium 4.1, chloride 91, bicarb 27, BUN 22, creatinine 0.8, magnesium 1.9, calcium 9.3, AST 30, ALT 17, troponin one 0.019, viral serologies negative. Images: Chest x-ray independently interpreted shows small right pleural effusion associated with atelectasis and some hazy appearance in the right upper lung KUB interpreted independently shows large stool burden otherwise there is no evidence for acute process. EKG interpreted independently shows sinus tachycardia. QRS duration is normal 84 ms. OR interval is normal 124 ms. Poor R wave progression noted. Vitals: Tmax 97.9 F, pulse rate 123, respiration 18, blood pressure 120/73, oxygen saturation 96.0 room air. Review of systems: Pertinent positives and negatives as discussed in HPI, a complete review of systems was performed and all other systems are negative. Social history: Tobacco: Quit 19 years ago, previously 1/2 pack x 40 years Alcohol: Occasionally Recreational drugs: None Travel: No recent travel Family History: As edema Physical examination: Vital signs reviewed General: non toxic, no distress, appears at stated age, appears frail Derm: no unusual rashes/lesions, warm Head: atraumatic, normocephalic, symmetric Eyes: EOMI, no lid lag, anicteric sclera, pupils equal round reactive to light ENT: Nose and ears atraumatic Neck: No cervical lymphadenopathy, trachea midline, supple Mouth: no lip lesion, mucus membranes moist Cardiovascular: S1S2 reg, no murmur, positive dorsalis pedis pulse bilateral, no edema Lungs: CTA bilateral, no rhonchi, no rales, no accessory muscle use Abdominal: Diffuse abdominal tenderness to palpation with no guarding, Lazar sign negative, no fluid shift Ext: muscle strength 5 out of 5 in all 4 extremities grossly, no gross muscle atrophy, no contractures Neuro: CN II-XI grossly intact, no gross focal neuro deficits Psych: Alert, oriented, appropriate affect Assessment/Plan: This is a 59-year-old female with PMH of stage IV lung cancer metastatic is currently being hospitalized for intractable nausea and vomiting the last couple of days associated with hemoptysis and overall generalized weakness.. Case was discussed with the Emergency Room provider and decision was made to admit the patient for above-mentioned reasons Active problem: #Intractable nausea and vomiting in the setting of constipation and Stage 4 lung cancer History of stage IV lung cancer KUB shows large stool burden Colace 100 mg p.o. twice daily MiraLAX 30 mg p.o. once stat given in the ER Continue with Zofran 4 mg IVP every 4 hours as needed Obtain CT abd/pelvis Encouraged high-fiber diet #GERD Protonix 40 mg IV daily, clear liquid diet for now; switch Protonix to oral once tolerated #Leukocytosis likely secondary reactive WBC 11.6 Continue to monitor CBC Hemoglobin is at baseline #Normocytic anemia, at baseline Monitor for now #Hypovolemic hyponatremia In the setting of nausea vomiting C/w IVF NS 75 ml/hr Continue monitor BMP tomorrow a.m. #Stage IV lung cancer, follows w/ Dr Castillo Consult hematology oncology DVT prophylaxis: Eliquis GI prophylaxis: Protonix 40 mg IV F: IV normal saline at 75 cc/h E: As needed N: Regular diet A: Patient is ambulatory at baseline at home The patient is admitted with an anticipated more than 2 midnight stay for evaluation of intractable nausea and vomiting and hematemesis CODE STATUS: Full code Discussed with: Patient Anticipated discharge place: Pending clinical course Dictation was produced using [employer] dictation software. Please excuse any grammatical, word or spelling errors. Past Medical History Past Medical History: Cancer, COPD, GERD/Reflux, Hyperlipidemia, Pulmonary Embolus (PE) Additional Past Medical History / Comment(s): Current back and rib cancer. Ovarian cyst. Hx lung cancer 2018 w/wedge resection left upper lobe Oct 2019, hx PE 06/21/22, right lower lobe resection for lung cancer February 2020, had 4 rounds of chemo after that and was cancer free until February 2023. Started immunotherapy every 4 weeks. Last chemotherapy was April 2024. History of Any Multi-Drug Resistant Organisms: None Reported Past Surgical History: Orthopedic Surgery, Tonsillectomy Additional Past Surgical History / Comment(s): Right hand surgery, ectopic surgery, lung resection of left upper lobe and right lower lobe, 1994 had lymph nodes removed from right armpit. Past Anesthesia/Blood Transfusion Reactions: Motion Sickness Additional Past Anesthesia/Blood Transfusion Reaction / Comment(s): motion sickness in the car Past Psychological History: No Psychological Hx Reported Smoking Status: Former smoker Past Alcohol Use History: None Reported Past Drug Use History: None Reported - Past Family History Father Family Medical History: Cancer Mother Family Medical History: Cancer, Deep Vein Thrombosis (DVT), Pulmonary Embolus Medications and Allergies Home Medications Medication Instructions Recorded Confirmed Type Albuterol Inhaler [Ventolin Hfa 2 puff INHALATION RT-Q6H PRN 09/17/19 11/11/24 History Inhaler] Cetirizine HCl [Zyrtec] 10 mg PO DAILY 06/21/22 11/11/24 History Omeprazole Magnesium [PriLOSEC OTC] 20 mg PO BID 06/21/22 11/11/24 History Apixaban [Eliquis] 5 mg PO BID 30 Days #60 tab 06/24/22 11/11/24 Rx Ipratropium-Albuterol Nebulize 3 ml INHALATION RT-QID 30 Days 06/24/22 11/11/24 Rx [Duoneb 0.5 mg-3 mg/3 ml Soln] #300 ml Budesonide-Formot 160-4.5 Mcg 2 puff INHALATION RT-BID 02/28/23 11/11/24 History [Symbicort 160-4.5 Mcg Inhaler] Gabapentin [Neurontin] 300 mg PO TID 02/28/23 11/11/24 History Sennosides/Docusate Sodium [Senna 1 cap PO BID PRN 02/28/23 11/11/24 History Plus 8.6-50 mg Softgel] HYDROcodone/APAP 10-325MG [[place] 1 tab PO Q6HR PRN 01/05/24 11/11/24 History 10-325] Lidocaine/Menthol [Asperflex Max 1 patch TRANSDERM DAILY PRN 01/05/24 11/11/24 History 4%-1% Patch] Linaclotide [Linzess] 145 mcg PO DAILY PRN 01/05/24 11/11/24 History Ondansetron Odt [Zofran ODT] 8 mg PO Q6H PRN 01/05/24 11/11/24 History guaiFENesin [Mucinex] 600 mg PO Q12HR PRN #30 tab 01/08/24 11/11/24 Rx fentaNYL 50MCG/HR PATCH [Duragesic 1 patch TRANSDERM Q72H patch 10/20/24 11/11/24 Rx 50MCG/HR] Allergies Allergy/AdvReac Type Severity Reaction Status Date / Time sulfamethoxazole Allergy Rash/Hives Verified 11/11/24 20:50 [From Bactrim] trimethoprim [From Bactrim] Allergy Rash/Hives Verified 11/11/24 20:50 Physical Exam Vitals: Vital Signs Temp Pulse Resp BP Pulse Ox 11/11/24 20:58 109 H 18 131/81 95 11/11/24 17:45 16 11/11/24 17:03 97.9 F 123 H 18 120/73 96 Intake and Output 11/11/24 11/11/24 11/11/24 06:59 14:59 22:59 Other: Weight 51.256 kg Results CBC & Chem 7: 11/11/24 17:45 11/11/24 17:45 Labs: Abnormal Lab Results - Last 24 Hours (Table) 11/11/24 11/11/24 11/11/24 Range/Units 17:45 17:45 17:45 WBC 11.6 H (3.8-10.6) k/uL RBC 3.76 L (3.80-5.40) m/uL Hgb 10.1 L (11.4-16.0) gm/dL Hct 33.0 L (34.0-46.0) % MCHC 30.7 L (31.0-37.0) g/dL RDW 17.5 H (11.5-15.5) % Plt Count 453 H (150-450) k/uL Neutrophils # 9.3 H (1.3-7.7) k/uL APTT 21.6 L (22.0-30.0) sec Sodium 131 L (137-145) mmol/L Chloride 91 L (98-107) mmol/L BUN 22 H (7-17) mg/dL Total Protein 5.7 L (6.3-8.2) g/dL Albumin 3.3 L (3.5-5.0) g/dL
[2024-11-11] MEDS: traMADol 50 MG TAB PO STA (23:00)
[2024-11-11] MEDS: ONDANSETRON 4 MG/2 ML VIAL IVP PRN (23:00)
[2024-11-11] MEDS: HYDROmorphone 0.5 MG/0.5 ML SYRINGE IVP PRN (23:01)
[2024-11-12] MEDS ORDERED: IPRATROPIUM-ALBUTEROL 3 ML NEB INHALATION PRN (00:19)
[2024-11-12] MEDS: PROCHLORPERAZINE INJ 10 MG/2 ML VIAL IVP STA (00:29)
--- NOTE | 2024-11-12 01:37 | CT ---
EXAM: CT Abdomen and Pelvis With Intravenous Contrast CLINICAL HISTORY: ITS.REASON CT Reason: nausea/vomiting/abd pain TECHNIQUE: Axial computed tomography images of the abdomen and pelvis with intravenous contrast. CTDI is 15.2 mGy and DLP is 724 mGy-cm. This CT exam was performed using one or more of the following dose reduction techniques: automated exposure control, adjustment of the mA and/or kV according to patient size, and/or use of iterative reconstruction technique. COMPARISON: No relevant prior studies available. FINDINGS: Lung bases: Airspace consolidation of the RIGHT lung base, concerning for pneumonia. ABDOMEN: Liver: Unremarkable. No mass. Gallbladder and bile ducts: Unremarkable. No calcified stones. No ductal dilation. Pancreas: Unremarkable. No mass. No ductal dilation. Spleen: Unremarkable. No splenomegaly. Adrenals: Unremarkable. No mass. Kidneys and ureters: Unremarkable. No solid mass. No hydronephrosis. Stomach and bowel: Moderate fecal retention, correlate for constipation. PELVIS: Appendix: No findings to suggest acute appendicitis. Bladder: Unremarkable. No mass. Reproductive: Unremarkable as visualized. ABDOMEN and PELVIS: Intraperitoneal space: Abdominal ascites. Mild wall thickening of small bowel in the pelvis, correlate for enteritis. No free air. Bones/joints: Degenerative changes of the spine. No acute fracture. No dislocation. Soft tissues: Anasarca. Vasculature: Atherosclerotic changes of the aorta. No abdominal aortic aneurysm. Lymph nodes: Unremarkable. No enlarged lymph nodes. IMPRESSION: 1. Airspace consolidation of the RIGHT lung base, concerning for pneumonia. 2. Abdominal ascites. Mild wall thickening of small bowel in the pelvis, correlate for enteritis. 3. Moderate fecal retention, correlate for constipation.
[2024-11-12] MEDS ORDERED: NON FORMULARY DRUG (Linaclotide [Linzess] 145 MCG Capsule) PO PRN (01:54)
[2024-11-12] MEDS ORDERED: ALBUTEROL HFA INHALER INHALATION PRN (01:54)
[2024-11-12] MEDS ORDERED: guaiFENesin 600 MG TABLET.ER PO PRN (01:54)
--- NOTE | 2024-11-12 02:38 | P.CNPUL ---
History of Present Illness Consult date: 11/12/24 Requesting physician: Harrison Brink Reason for consult: other (Hemoptysis, lung cancer) Chief complaint: Hemoptysis History of present illness: Patient is a 59-year-old female with past medical history significant for metastatic non-small cell lung cancer, COPD, and PE anticoagulated on Eliquis. Her primary care provider is Dr. Foster. Her pet groomer is Dr. Adams. Non- small cell lung cancer originally diagnosed back in 2019. she has had bilateral lung wedge resections; of the left upper lobe in October 2019, as well as, right lower lung resection in Feb, 2021. A follow-up PET scan in February 2023 indicating possible disease recurrence. 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 Her established oncologist is Dr. Castillo. Previously maintained on chemotherapy with Alimta and cisplatin. Most recent available PET scan taken on 07/25/2024 showing overall mixed response to therapy with slightly increased radiotracer activity throughout the right pleural and anterior right seventh rib with mild decrease in radiotracer activity within the right 10th rib and posterior costophrenic pleural region. Development of nonspecific left anterior peritoneal stranding changes with mild FDG uptake, could represent early peritoneal metastasis versus other etiologies such as infectious/inflammatory nature. She was then started on Opdivo treatments, which are currently on hold. Believes her last treatment was in September,. Patient presented to emergency department yesterday evening with a chief complaint of hemoptysis. She is being evaluated in the ED, room 23. She has been coughing up small dime size to quarter size clots. She states this is an been ongoing over the weekend. Estimates total amount in 24 hours less than a medicine cup. She takes Eliquis for previous history PE. She has not missed any doses. She denies any chest pain, lightheadedness, syncopal events. Denies any infectious-like symptoms such as fever, chills, apparent sputum production. She is on room air oxygen with an SpO2 of 96% on bedside monitor. No respiratory distress. Chest x-ray is relatively unchanged with near complete opacification of the right lung and volume loss. Recent CT of the chest with contrast done 11/07/2024 demonstrates ongoing volume loss and extensive pleural/parenchymal opacities throughout the right hemithorax. Pleural rind at the lower lung increased compared to 2023. Confluent lower lung opacities have also increased compared to 202, but show improvement from recent 10/19/2024 study. Few subcentimeter pulmonary nodules on the left, concerning for metastatic disease. Complex ascites fluid partially visualized in the upper abdomen scalloping the left liver lobe and surrounding some upper abdominal bowel loops. Concerning for disease progression. She has also been complaining of intractable nausea and vomiting. Reports yellow to brown emesis. Which started approximately 2 days ago. Denies any hematemesis. Denies any hematochezia or melena. Her last normal bowel movement was 3 days ago. She cannot keep any food or water down. Some associated non- localized abdominal pain. She feels constipated, and frequently takes narcotics on an outpatient basis. Abdomen is distended and generally tender to palpation. Pain rated 8 on a 10 point numerical scale. Normal sinus infusing at 75 mL/h. CBC: WBC count 11.6, hemoglobin 10.1, platelets 453. CMP: Sodium 131, potassium 4.1, chloride 91, serum bicarb 27, BUN 22, creatinine 0.8, glucose 79. LFTs unremarkable. Total bilirubin 0.4. Troponin 0.019. EKG: Sinus tachycardia, rate 116 bpm, right axis deviation, no obvious acute ischemic changes. Viral screen negative for influenza, RSV, COVID. Current most recent vitals: afebrile, heart rate 109 bpm, blood pressure 131/81 mmHg, nontachypneic, SpO2 is 95% on room air oxygen. Review of Systems Constitutional: Reports fatigue, Reports poor appetite, Denies chills, Denies fever, Denies weight gain, Denies weight loss Ears, nose, mouth and throat: Denies dysphagia, Denies epistaxis, Denies hoarseness, Denies mouth pain, Denies nasal congestion, Denies nasal discharge, Denies odynophagia, Denies post-nasal drip, Denies sinus pain, Denies sinus pressure, Denies sore throat Cardiovascular: Denies chest pain, Denies dyspnea on exertion, Denies leg edema, Denies lightheadedness, Denies orthopnea, Denies palpitations, Denies paroxysmal nocturnal dyspnea, Denies syncope Respiratory: Reports cough, Reports hemoptysis, Reports home oxygen, Denies congestion, Denies dyspnea, Denies excessive sputum, Denies respiratory infections, Denies wheezing Gastrointestinal: Reports abdominal pain, Reports constipation, Reports heartburn, Reports indigestion, Reports loss of appetite, Reports nausea, Reports vomiting, Denies coffee ground emesis, Denies diarrhea, Denies hematemesis, Denies hematochezia, Denies melena Genitourinary: Denies dysuria Musculoskeletal: Denies limitation of motion Integumentary: Denies rash Neurological: Denies seizures, Denies syncope Psychiatric: Denies anxiety, Denies depression Past Medical History Past Medical History: Cancer, COPD, GERD/Reflux, Hyperlipidemia, Pulmonary Embolus (PE) Additional Past Medical History / Comment(s): Current back and rib cancer. Ovarian cyst. Hx lung cancer 2018 w/wedge resection left upper lobe Oct 2019, hx PE 06/21/22, right lower lobe resection for lung cancer February 2020, had 4 rounds of chemo after that and was cancer free until February 2023. Started immunotherapy every 4 weeks. Last chemotherapy was April 2024. History of Any Multi-Drug Resistant Organisms: None Reported Past Surgical History: Orthopedic Surgery, Tonsillectomy Additional Past Surgical History / Comment(s): Right hand surgery, ectopic surgery, lung resection of left upper lobe and right lower lobe, 1994 had lymph nodes removed from right armpit. Past Anesthesia/Blood Transfusion Reactions: Motion Sickness Additional Past Anesthesia/Blood Transfusion Reaction / Comment(s): motion sickness in the car Past Psychological History: No Psychological Hx Reported Smoking Status: Former smoker Past Alcohol Use History: None Reported Past Drug Use History: None Reported - Past Family History Father Family Medical History: Cancer Mother Family Medical History: Cancer, Deep Vein Thrombosis (DVT), Pulmonary Embolus Medications and Allergies Home Medications Medication Instructions Recorded Confirmed Type Albuterol Inhaler [Ventolin Hfa 2 puff INHALATION RT-Q6H PRN 09/17/19 11/11/24 History Inhaler] Cetirizine HCl [Zyrtec] 10 mg PO DAILY 06/21/22 11/11/24 History Omeprazole Magnesium [PriLOSEC OTC] 20 mg PO BID 06/21/22 11/11/24 History Apixaban [Eliquis] 5 mg PO BID 30 Days #60 tab 06/24/22 11/11/24 Rx Ipratropium-Albuterol Nebulize 3 ml INHALATION RT-QID 30 Days 06/24/22 11/11/24 Rx [Duoneb 0.5 mg-3 mg/3 ml Soln] #300 ml Budesonide-Formot 160-4.5 Mcg 2 puff INHALATION RT-BID 02/28/23 11/11/24 History [Symbicort 160-4.5 Mcg Inhaler] Gabapentin [Neurontin] 300 mg PO TID 02/28/23 11/11/24 History Sennosides/Docusate Sodium [Senna 1 cap PO BID PRN 02/28/23 11/11/24 History Plus 8.6-50 mg Softgel] HYDROcodone/APAP 10-325MG [Garland 1 tab PO Q6HR PRN 01/05/24 11/11/24 History 10-325] Lidocaine/Menthol [Asperflex Max 1 patch TRANSDERM DAILY PRN 01/05/24 11/11/24 History 4%-1% Patch] Linaclotide [Linzess] 145 mcg PO DAILY PRN 01/05/24 11/11/24 History Ondansetron Odt [Zofran ODT] 8 mg PO Q6H PRN 01/05/24 11/11/24 History guaiFENesin [Mucinex] 600 mg PO Q12HR PRN #30 tab 01/08/24 11/11/24 Rx fentaNYL 50MCG/HR PATCH [Duragesic 1 patch TRANSDERM Q72H patch 10/20/24 11/11/24 Rx 50MCG/HR] Allergies Allergy/AdvReac Type Severity Reaction Status Date / Time sulfamethoxazole Allergy Rash/Hives Verified 11/11/24 20:50 [From Bactrim] trimethoprim [From Bactrim] Allergy Rash/Hives Verified 11/11/24 20:50 Physical Exam Vitals: Vital Signs Temp Pulse Resp BP Pulse Ox 11/11/24 20:58 109 H 18 131/81 95 11/11/24 17:45 16 11/11/24 17:03 97.9 F 123 H 18 120/73 96 Intake and Output 11/11/24 11/11/24 11/12/24 14:59 22:59 06:59 Other: Weight 51.256 kg GENERAL EXAM: Alert, 59-year-old female sitting at the edge of the bed, actively vomiting into bedside basin with yellow-brown emesis. HEAD: Normocephalic and atraumatic EYES: Normal reaction of pupils, equal size. NOSE: Clear with pink turbinates. THROAT: No erythema or exudates. NECK: No masses, no JVD. CHEST: No chest wall deformity. Right chest Mediport present. LUNGS: Equal air entry with diminished right lung sounds, left lung without adventitious lung sounds. On room air. SpO2 96%. No conversational dyspnea or accessory muscle use.. CVS: S1 and S2 normal with no audible murmur, regular rhythm. No extra heart sounds ABDOMEN: Abdomen is distended, active bowel sounds, generally tender to palpation, no hepatosplenomegaly. SPINE: No scoliosis or deformity SKIN: No rashes CENTRAL NERVOUS SYSTEM: No focal deficits, tone is normal in all 4 extremities. EXTREMITIES: There is no peripheral edema, clubbing, or cyanosis. Peripheral pulses are intact. Results - Laboratory Findings CBC and BMP: 11/11/24 17:45 11/11/24 17:45 PT/INR, D-dimer PT 11.1 sec (10.0-12.5) 11/11/24 17:45 INR 1.0 (<1.2) 11/11/24 17:45 Abnormal lab findings: Abnormal Labs 11/11/24 11/11/24 11/11/24 17:45 17:45 17:45 WBC 11.6 H RBC 3.76 L Hgb 10.1 L Hct 33.0 L MCHC 30.7 L RDW 17.5 H Plt Count 453 H Neutrophils # 9.3 H APTT 21.6 L Sodium 131 L Chloride 91 L BUN 22 H Total Protein 5.7 L Albumin 3.3 L - Diagnostic Findings Chest x-ray: image reviewed Assessment and Plan Assessment: Small hemoptysis, estimated at less than 30 mL in 24-hour timeframe, continues to have intermittent episodes with clots. Eliquis is on hold. Recurrent metastatic non-small cell lung cancer Severe chronic obstructive pulmonary disease, FEV1 is 31% of predicted, stable Chronic pain, secondary to complications of malignancy Chronic hypoxemic respiratory failure, uses 2 L/min nasal cannula as needed at home Former tobacco smoker History of pulmonary embolism, chronically anticoagulated on Eliquis outpatient basis Chronic anemia, hemoglobin stable at 10.1 g/dL Hypovolemic hyponatremia, secondary nausea, vomiting and reduced oral intake Intractable nausea vomiting and abdominal pain. CT of the abdomen and pelvis shows abdominal ascites, mild wall thickening of small bowel in the pelvis correlate for enteritis, and moderate fecal retention concerning for constipation. Right lower lobe pleural thickening, volume loss, and likely atelectasis. Being addressed by admitting physician. Plan: Consult placed for hemoptysis Patient's medications, labs, chest x-ray reviewed Admission chest x-ray is relatively unchanged with near complete opacification of the right lung and volume loss consistent with patient's known malignancy. Currently on room air oxygen, in no respiratory distress Continue to hold Eliquis Most recent CT of the chest with contrast from 11/07/2024 reviewed, concerning for possible disease progression Patient just recently had IV contrast, will hold off on repeat CT of the chest at this time. If hemoptysis continues or worsens, patient may require bronchoscopy with airway examination. Case will be discussed with Dr. Underwood. Medical oncology also consulted We will continue to follow, additional recommendations to follow I have personally seen and examined the patient, performed the documentation and the assessment and plan as written. Number of minutes spent on the visit:20 = Time with Patient: Greater than 30
[2024-11-12] MEDS: HYDROcodone/APAP 10-325MG 1 EACH TAB PO PRN (03:11)
[2024-11-12] MEDS: bisacodyL 10 MG SUPP RECTAL STA (03:17)
[2024-11-12 07:43] LABS: Anisocytosis Slight; Basophils % (A) 0 %; Eosinophils % (A) 0 %; HCT 30.2 % (34.0-46.0); HGB 9.1 gm/dL (11.4-16.0); Hypochromasia Marked; Lymphocytes # (A) 1.1 k/uL (1.0-4.8); Lymphocytes % (A) 10 %; MCH 26.9 pg (25.0-35.0); MCV 89.6 fL (80.0-100.0); Mean Platelet Volume 7.7; Monocytes # (A) 0.6 k/uL (0-1.0); Monocytes % (A) 6 %; Neutrophils # (A) 8.4 k/uL (1.3-7.7); Neutrophils % (A) 82 %; Platelet Count 439 k/uL (150-450); RBC 3.37 m/uL (3.80-5.40); RDW 17.5 % (11.5-15.5); WBC 10.3 k/uL (3.8-10.6)
[2024-11-12 07:54] LABS: African American GFR (CKD) >90 (>60 ml/min/1.73 sqM); Anion Gap 10 mmol/L; Blood Urea Nitrogen 17 mg/dL (7-17); Calcium 8.8 mg/dL (8.4-10.2); Carbon Dioxide 28 mmol/L (22-30); Chloride 95 mmol/L (98-107); Glucose 70 mg/dL (74-99); Magnesium 1.8 mg/dL (1.6-2.3); Non-African American GFR(CKD) 86 (>60 ml/min/1.73 sqM); Potassium 3.7 mmol/L (3.5-5.1); Sodium 133 mmol/L (137-145)
[2024-11-12] MEDS: SYMBICORT 160-4.5 MCG INHALER INHALATION SCH (07:56)
[2024-11-12] MEDS: IPRATROPIUM-ALBUTEROL 3 ML NEB INHALATION SCH (07:56)
[2024-11-12] MEDS ORDERED: SYMBICORT 160-4.5 MCG INHALER INHALATION SCH (08:00)
[2024-11-12] MEDS ORDERED: IPRATROPIUM-ALBUTEROL 3 ML NEB INHALATION SCH (08:00)
[2024-11-12] MEDS: PANTOPRAZOLE 40 MG/10 ML VIAL IV SCH (08:08)
[2024-11-12] MEDS: AMOXIC-POT CLAV 875-125MG 1 EACH TAB PO SCH (08:10)
[2024-11-12] MEDS: GABAPENTIN 300 MG CAP PO SCH (08:11)
[2024-11-12] MEDS: LORATADINE 10 MG TAB PO SCH (08:11)
[2024-11-12] MEDS: LACTULOSE 20 GM/30 ML CUP PO SCH (08:13)
[2024-11-12] MEDS ORDERED: APIXABAN 5 MG TAB PO SCH (09:00)
[2024-11-12] MEDS: ONDANSETRON 4 MG/2 ML VIAL IVP PRN (09:29)
--- NOTE | 2024-11-12 15:44 | P.PN ---
Subjective Progress Note Date: 11/12/24 Hospital course: Patient is a 59-year-old female with PMH of stage IV lung cancer managed by Dr. Camacho, COPD, GERD, hyperlipidemia, pulmonary embolism on Eliquis presents to the ER with a complaint of shortness of breath and hemoptysis that started 2 days ago. Patient describes she has been numerous episodes of hemoptysis for last 2 days associated with passing of small blood clots. Patient is also endorsing diffuse abdominal pain which states is 7 out of 10 but exacerbated with palpitation. Denies any blood in stool. She has also been endorsing nausea which has resulted in a poor appetite and has not been able to tolerate solid food for the last couple of days. Patient states that she is on Eliquis for 3 years after the episodes of pulmonary embolism. Patient denies any similar episodes of hemoptysis in the past. Patient states that she is currently being managed by Dr. Castillo at [facility]. She is due to start immunotherapy. Patient has had recurrent pleural effusions and has lost ~25 pounds over the last 3 months and has been feeling fatigue. Denies any dysphagia. Family history significant for lung cancer cancer in his 60s. At the time of interview, patient states that she is feeling much better and her nausea and vomiting are controlled. ROS: Patient is also complaining of constipation last 2 days. Patient is also endorsing heartburn and epigastric region. Patient denies any chest pain, fever, chills, weakness and numbness in upper and lower extremities. Laboratory data: WBC 11.6, hemoglobin 10.1, hematocrit 32.0, platelet count 453, PT 12.1, INR 1.0, APTT 21.6, sodium 131, potassium 4.1, chloride 91, bicarb 27, BUN 22, creatinine 0.8, magnesium 1.9, calcium 9.3, AST 30, ALT 17, troponin one 0.019, viral serologies negative. Images: Chest x-ray independently interpreted shows small right pleural effusion associated with atelectasis and some hazy appearance in the right upper lung KUB interpreted independently shows large stool burden otherwise there is no evidence for acute process. EKG interpreted independently shows sinus tachycardia. QRS duration is normal 84 ms. MO interval is normal 124 ms. Poor R wave progression noted. Vitals: Tmax 97.9 F, pulse rate 123, respiration 18, blood pressure 120/73, oxygen saturation 96.0 room air. Subjective: 11/12/2024: Patient seen and evaluated bedside. Patient reports vomiting last night, multiple episodes. She denies any blood in her vomit. Still coughing up blood, clot like quarter size. Has not had a bowel movement this morning. Pertinent positives and negatives as discussed above, a complete review of systems was performed and all other systems are negative. Vitals: Signs Reviewed Physical Exam: General: nontoxic, no distress, appears at stated age Derm: warm, dry, intact Head: atraumatic, normocephalic, symmetric Eyes: EOMI, anicteric sclera Mouth: no lip lesion, mucus membranes moist Cardiovascular: S1 S2 reg, no murmur, rubs, or gallops Lungs: CTA bilateral, no rhonchi, no rales, no accessory muscle use Abdominal: soft, non-tender to palpataion, no appreciable organomegaly Extremities: no gross muscle atrophy, no edema, no contractures Neuro: Alert, Oriented, CNII-XII grossly intact, gait normal Psych: well appearing, appropriate affect Data Received Today: Pertinent Labs: WBC 10.3, Hgb 9.1, MCV 89.6, D-dimer 0.82, sodium 133, lactic acid 0.8, glucose 70 Imaging: Abdominal/pelvis CT with contrast display air space consolidation in the right lung base concerning for pneumonia, abdominal ascites. Mild wall thickening of small bowel and pelvis. Moderate fecal retention. Assessment and Plan: This is a 59-year-old female with PMH of stage IV lung cancer metastatic is currently being hospitalized for intractable nausea and vomiting the last couple of days associated with hemoptysis and overall generalized weakness. Active: #Intractable nausea and vomiting in the setting of constipation and Stage 4 lung cancer History of stage IV lung cancer KUB shows large stool burden Colace 100 mg p.o. twice daily MiraLAX 30 mg p.o. once stat given in the ER Continue with Zofran 4 mg IVP every 4 hours as needed Encouraged high-fiber diet Senokot 8.6 mg p.o. twice daily Placed back on home fentanyl patch #. Hemoptysis #Non-small cell lung cancer #Normocytic anemia, at baseline Hold Eliquis -Hemoglobin stable, continue to monitor Pulmonology following, note read. If hemoptysis continues to worsen, patient may require bronchoscopy with airway examination -Oncology also consulted #. Hypoglycemia Glucose 70 Patient asymptomatic, no history of diabetes Accu-Cheks Hypoglycemic precaution, continue to monitor Follow-up BMP #GERD Protonix 40 mg IV daily, clear liquid diet for now; switch Protonix to oral once tolerated #Leukocytosis likely secondary reactive, resolved #Hypovolemic hyponatremia In the setting of nausea vomiting C/w IVF NS 75 ml/hr Continue monitor BMP tomorrow a.m. #. Sinus tachycardia Likely in the setting of intractable vomiting and hypovolemia Chronic: # COPD, not in exacerbation Continue with home breathing treatment O2 saturation 95% on room air F: Normal saline at 75 cc/HR E: Replete as needed N: NPO DVT ppx: SCDs Code status: Full code Anticipated discharge place: Pending clinical course Anticipated discharge time: Pending clinical Josh Amin MD PGY-1 IM Dictation was produced using [employer] dictation software. please excuse any grammatical, word or spelling errors. I have seen and evaluated the patient today. Discussed with the resident and agree with the residents finding and plan as documented in the resident's note. Changes highlighted in blue font. Objective - Vital Signs Vital signs: Vital Signs Temp 97.9 F 11/11/24 17:03 Pulse 117 H 11/12/24 06:44 Resp 18 11/12/24 06:44 BP 142/85 11/12/24 06:44 Pulse Ox 95 11/12/24 06:44 FiO2 Intake & Output 11/11/24 11/11/24 11/12/24 06:59 18:59 06:59 Weight 51.256 kg - Labs CBC & Chem 7: 11/12/24 07:12 11/12/24 07:12 Labs: Abnormal Lab Results - Last 24 Hours (Table) 11/11/24 11/11/24 11/11/24 Range/Units 17:45 17:45 17:45 WBC 11.6 H (3.8-10.6) k/uL RBC 3.76 L (3.80-5.40) m/uL Hgb 10.1 L (11.4-16.0) gm/dL Hct 33.0 L (34.0-46.0) % MCHC 30.7 L (31.0-37.0) g/dL RDW 17.5 H (11.5-15.5) % Plt Count 453 H (150-450) k/uL Neutrophils # 9.3 H (1.3-7.7) k/uL APTT 21.6 L (22.0-30.0) sec Sodium 131 L (137-145) mmol/L Chloride 91 L (98-107) mmol/L BUN 22 H (7-17) mg/dL Total Protein 5.7 L (6.3-8.2) g/dL Albumin 3.3 L (3.5-5.0) g/dL
[2024-11-12 17:36] LABS: Glucose,Whole Blood 81 mg/dL (70-110)
--- NOTE | 2024-11-12 17:58 | P.CONS ---
History of Present Illness - Reason for Consult Consult date: 11/12/24 NSCLC, metastatic Requesting physician: Harrison Brink - Chief Complaint abd pain, distension - History of Present Illness Ms. Rodriguez is a 59-year-old female patient of Dr. Prince Alonzo with a history of lung adenocarcinoma. She presented June 2020 with complaints of cough, shortness of breath. Chest x-ray showed suspicious right upper lobe and left upper lobe findings. PET confirms suspicious for neoplasm. Referred to [facility], evaluated by Dr. Tapia. Robotic assisted wedge resection of left upper lobe October 2019 revealed a T1 adenocarcinoma with negative florence metastases. She was scheduled for right side surgery in November, delayed due to COVID. Wedge resection of right lower lobe 03/13/2020 revealed a 4.9 cm adenocarcinoma, negative margins all lymph nodes negative. Wedge resection of right upper lobe lesion revealed a 2 mm adenocarcinoma. She was started on adjuvant carboplatin and Alimta x 4 cycles, completed in June 2020 Patient did well and continued on follow-up. December 2021 a RUL mass was increasing in size. This was monitored and in Aug 2023 biopsy proven recurrent adenocarcinoma. She was started on carboplatin/Alimta/Keytruda, she had a reaction to the carboplatin during the third cycle. She continued then on Alimta Keytruda for 3 more cycles. She was started on Opdivo July 2023, last cycle was a few weeks ago. Patient called the office yesterday reporting that she felt "horrible". Reported vomiting, significant heartburn, some hemoptysis. She denied any fevers or chills, she has had occasional nausea and vomiting for few weeks. She reports the hemoptysis started about 2 weeks ago, noting more after updrafts, her abdomen is distended, tender. She does not recall her last bowel movement. No fevers, chills, pain with swallowing, dysuria, no other bleeding, no swelling in the legs. She has generalized weakness, moderate fatigue, appetite is poor. Hemoglobin 9.1, WBCs 10.3. KUB x-ray showing a large stool burden. Chest x-ray showing a small right pleural effusion. CT abdomen and pelvis reporting ascites, some thickening of the small bowel, questioning some enteritis, fecal retention. Patient has been seen by pulmonary, Eliquis has been held. Review of Systems 14 point ROS is neg except as stated in HPI Past Medical History Past Medical History: Cancer, COPD, GERD/Reflux, Hyperlipidemia, Pulmonary Embo shreya (PE) Additional Past Medical History / Comment(s): Current back and rib cancer. Ovarian cyst. Hx lung cancer 2018 w/wedge resection left upper lobe Oct 2019, hx PE 06/21/22, right lower lobe resection for lung cancer February 2020, had 4 rounds of chemo after that and was cancer free until February 2023. Started immunotherapy every 4 weeks. Last chemotherapy was April 2024. History of Any Multi-Drug Resistant Organisms: None Reported Past Surgical History: Orthopedic Surgery, Tonsillectomy Additional Past Surgical History / Comment(s): Right hand surgery, ectopic surgery, lung resection of left upper lobe and right lower lobe, 1994 had lymph nodes removed from right armpit. Past Anesthesia/Blood Transfusion Reactions: Motion Sickness Additional Past Anesthesia/Blood Transfusion Reaction / Comm: motion sickness in the car Past Psychological History: No Psychological Hx Reported Smoking Status: Former smoker Past Alcohol Use History: None Reported Past Drug Use History: None Reported - Past Family History Father Family Medical History: Cancer Mother Family Medical History: Cancer, Deep Vein Thrombosis (DVT), Pulmonary Embolus Medications and Allergies Home Medications Medication Instructions Recorded Confirmed Type Albuterol Inhaler [Ventolin Hfa 2 puff INHALATION RT-Q6H PRN 09/17/19 11/11/24 History Inhaler] Cetirizine HCl [Zyrtec] 10 mg PO DAILY 06/21/22 11/11/24 History Omeprazole Magnesium [PriLOSEC OTC] 20 mg PO BID 06/21/22 11/11/24 History Apixaban [Eliquis] 5 mg PO BID 30 Days #60 tab 06/24/22 11/11/24 Rx Ipratropium-Albuterol Nebulize 3 ml INHALATION RT-QID 30 Days 06/24/22 11/11/24 Rx [Duoneb 0.5 mg-3 mg/3 ml Soln] #300 ml Budesonide-Formot 160-4.5 Mcg 2 puff INHALATION RT-BID 02/28/23 11/11/24 History [Symbicort 160-4.5 Mcg Inhaler] Gabapentin [Neurontin] 300 mg PO TID 02/28/23 11/11/24 History Sennosides/Docusate Sodium [Senna 1 cap PO BID PRN 02/28/23 11/11/24 History Plus 8.6-50 mg Softgel] HYDROcodone/APAP 10-325MG [[place] 1 tab PO Q6HR PRN 01/05/24 11/11/24 History 10-325] Lidocaine/Menthol [Asperflex Max 1 patch TRANSDERM DAILY PRN 01/05/24 11/11/24 History 4%-1% Patch] Linaclotide [Linzess] 145 mcg PO DAILY PRN 01/05/24 11/11/24 History Ondansetron Odt [Zofran ODT] 8 mg PO Q6H PRN 01/05/24 11/11/24 History guaiFENesin [Mucinex] 600 mg PO Q12HR PRN #30 tab 01/08/24 11/11/24 Rx fentaNYL 50MCG/HR PATCH [Duragesic 1 patch TRANSDERM Q72H patch 10/20/24 11/11/24 Rx 50MCG/HR] Allergies Allergy/AdvReac Type Severity Reaction Status Date / Time sulfamethoxazole Allergy Rash/Hives Verified 11/11/24 20:50 [From Bactrim] trimethoprim [From Bactrim] Allergy Rash/Hives Verified 11/11/24 20:50 Physical Exam Vitals: Vital Signs Temp Pulse Pulse Resp BP BP Pulse Ox 11/12/24 08:05 111 H 18 11/12/24 07:58 118 H 18 98 11/12/24 07:39 97.7 F 120 H 17 117/77 97 11/12/24 07:28 114 H 18 138/80 11/12/24 06:44 117 H 18 142/85 95 11/12/24 03:00 117 H 18 142/82 95 11/11/24 20:58 109 H 18 131/81 95 11/11/24 17:45 16 11/11/24 17:03 97.9 F 123 H 18 120/73 96 Intake and Output 11/11/24 11/12/24 11/12/24 22:59 06:59 14:59 Other: Weight 51.256 kg - Constitutional General appearance: cooperative, mild distress, thin - EENT Eyes: anicteric sclerae, EOMI ENT: hearing grossly normal, normal oropharynx - Neck Neck: no lymphadenopathy - Respiratory Respiratory: bilateral: CTA - Cardiovascular Rhythm: regular Heart sounds: normal: S1, S2 Abnormal Heart Sounds: no systolic murmur, no diastolic murmur, no rub, no S3 Gallop, no S4 Gallop, no click, no other leg Peripheral Edema: bilateral: None - Gastrointestinal firm, guarding General gastrointestinal: decreased bowel sounds, distended, tenderness - Integumentary Integumentary: normal - Neurologic Neurologic: CNII-XII intact - Musculoskeletal Musculoskeletal: generalized weakness, strength equal bilaterally - Psychiatric Psychiatric: A&O x's 3, appropriate affect, intact judgment & insight Results CBC & Chem 7: 11/12/24 07:12 11/12/24 07:12 Labs: Abnormal Lab Results - Last 24 Hours (Table) 11/11/24 11/11/24 11/11/24 Range/Units 17:45 17:45 17:45 WBC 11.6 H (3.8-10.6) k/uL RBC 3.76 L (3.80-5.40) m/uL Hgb 10.1 L (11.4-16.0) gm/dL Hct 33.0 L (34.0-46.0) % MCHC 30.7 L (31.0-37.0) g/dL RDW 17.5 H (11.5-15.5) % Plt Count 453 H (150-450) k/uL Neutrophils # 9.3 H (1.3-7.7) k/uL APTT 21.6 L (22.0-30.0) sec D-Dimer (<0.60) mg/L FEU Sodium 131 L (137-145) mmol/L Chloride 91 L (98-107) mmol/L BUN 22 H (7-17) mg/dL Glucose (74-99) mg/dL Total Protein 5.7 L (6.3-8.2) g/dL Albumin 3.3 L (3.5-5.0) g/dL 11/12/24 11/12/24 11/12/24 Range/Units 07:12 07:12 08:02 WBC (3.8-10.6) k/uL RBC 3.37 L (3.80-5.40) m/uL Hgb 9.1 L (11.4-16.0) gm/dL Hct 30.2 L (34.0-46.0) % MCHC 30.0 L (31.0-37.0) g/dL RDW 17.5 H (11.5-15.5) % Plt Count (150-450) k/uL Neutrophils # 8.4 H (1.3-7.7) k/uL APTT (22.0-30.0) sec D-Dimer 0.82 H (<0.60) mg/L FEU Sodium 133 L (137-145) mmol/L Chloride 95 L (98-107) mmol/L BUN (7-17) mg/dL Glucose 70 L (74-99) mg/dL Total Protein (6.3-8.2) g/dL Albumin (3.5-5.0) g/dL Chest x-ray: report reviewed Abdominal x-ray: report reviewed CT scan - abdomen: report reviewed CT scan - pelvis: report reviewed Assessment and Plan (1) Abdominal pain Current Visit: Yes Status: Acute Priority: High Code(s): R10.9 - UNSPECIFIED ABDOMINAL PAIN SNOMED Code(s): 20395855 (2) Hemoptysis Current Visit: Yes Status: Acute Priority: High Code(s): R04.2 - HEMOPTYSIS SNOMED Code(s): 02600173 (3) Adenocarcinoma of lung Current Visit: Yes Status: Acute Priority: High Code(s): C34.90 - MALIGNANT NEOPLASM OF UNSP PART OF UNSP BRONCHUS OR LUNG SNOMED Code(s): 589390096 Plan: Abdominal pain -Patient has been complaining of persistent and progressive abdominal pain for the last several weeks. CT of the abdomen is showing ascites, thickening of the small bowel, questioning enteritis, pretty significant fecal retention. KUB showing a large stool burden. -Patient has received lactulose, this has been ordered twice a day, enema recommended as needed suppository was used. Pending bowel movement to see if this relieves patient's complaints. -May consider US abd, paracentesis if abd distension is persistent Hemoptysis -Hemoptysis started about 2 weeks ago, she notes more after updrafts next. -Pulmonary following. Pending Pulmonary assessment and recommendations. Agree with holding eliquis Metastatic non-small cell lung cancer -Diagnosis and treatment as stated in HPI. -Recent concerns for disease progression. There were orders for scans. -Will go over with primary Oncologist, get recommendations and plan of care. Will keep pt updated on changes and recommendations Doctor attests: I performed a history and physical examination of this patient, developed impression and plan of care. Discussed with dictator. I agree with dictators note, documented as a scribe.
[2024-11-12 20:17] LABS: Glucose,Whole Blood 78 mg/dL (70-110)
[2024-11-12] MEDS: SENNOSIDES 8.6 MG TAB PO SCH (20:34)
[2024-11-13 07:33] LABS: Glucose,Whole Blood 78 mg/dL (70-110)
[2024-11-13 07:47] LABS: Anisocytosis Slight; Basophils % (A) 0 %; Eosinophils % (A) 0 %; HCT 30.8 % (34.0-46.0); HGB 9.1 gm/dL (11.4-16.0); Hypochromasia Marked; Lymphocytes # (A) 1.2 k/uL (1.0-4.8); Lymphocytes % (A) 13 %; MCHC 29.7 g/dL (31.0-37.0); MCV 90.8 fL (80.0-100.0); Mean Platelet Volume 7.6; Monocytes # (A) 0.4 k/uL (0-1.0); Monocytes % (A) 5 %; Neutrophils # (A) 7.1 k/uL (1.3-7.7); Neutrophils % (A) 79 %; Platelet Count 500 k/uL (150-450); RBC 3.39 m/uL (3.80-5.40); RDW 17.9 % (11.5-15.5); WBC 8.9 k/uL (3.8-10.6)
[2024-11-13 08:05] LABS: African American GFR (CKD) >90 (>60 ml/min/1.73 sqM); Anion Gap 12 mmol/L; Blood Urea Nitrogen 15 mg/dL (7-17); Calcium 8.9 mg/dL (8.4-10.2); Carbon Dioxide 24 mmol/L (22-30); Chloride 101 mmol/L (98-107); Glucose 82 mg/dL (74-99); Non-African American GFR(CKD) >90 (>60 ml/min/1.73 sqM); Sodium 137 mmol/L (137-145)
[2024-11-13 08:32] LABS: Potassium 3.8 mmol/L (3.5-5.1)
[2024-11-13 12:16] LABS: Glucose,Whole Blood 108 mg/dL (70-110)
[2024-11-13] MEDS: bisacodyL 10 MG SUPP RECTAL STA (12:16)
--- NOTE | 2024-11-13 12:38 | P.GSCN ---
History of Present Illness Consult date: 11/13/24 History of present illness: CHIEF COMPLAINT: Abdominal pain, shortness of breath and hemoptysis HISTORY OF PRESENT ILLNESS: This is a 59-year-old female with a known history of lung cancer with metastatic disease to the back and ribs. Patient presents the hospital with complaints of abdominal pain with abdominal distention. She also has reported shortness of breath and hemoptysis. They have held her Eliquis. Patient reports she has been constipated with no bowel movement over the last 3 to 4 days. We did give her lactulose and a suppository yesterday and she did have a small bowel movement. However, patient continues to have abdominal pain and abdominal distention. Abdomen is firm. She is also complaining of vomiting. Surgical service consulted in regards to abdominal pain. PAST MEDICAL HISTORY: See below PAST SURGICAL HISTORY: See below MEDICATIONS: See below ALLERGIES: See below SOCIAL HISTORY: No illicit drug use. REVIEW OF SYSTEMS: CONSTITUTIONAL: Denies fever or chills. HEENT: Denies blurred vision, vision changes, or eye pain. Denies hemoptysis CARDIOVASCULAR: Denies chest pain or pressure. RESPIRATORY: No shortness of breath. GASTROINTESTINAL: See HPI for pertinent findings HEMATOLOGIC: Denies bleeding disorders. GENITOURINARY: Denies any blood in urine or increased urinary frequency. SKIN: Denies pruitis. Denies rash. PHYSICAL EXAM: VITAL SIGNS: Reviewed GENERAL: Well-developed in no acute distress. HEENT: No sclera icterus. Extraocular movements grossly intact. Moist buccal mucosa. Head is atraumatic, normocephalic. No nasal drainage. ABDOMEN: Abdomen is distended and firm. Stomach is palpable. No rebound or guarding noted. NEUROLOGIC: Alert and oriented. Cranial nerves II through XII grossly intact. LABORATORY DATA: WBC 8.9 Hgb 9.1 platelets 500 Sodium is 137 potassium 3.8 creatinine 0.64 IMAGING: CT scan abdomen pelvis concerning for pneumonia. Abdominal ascites. Mild wall thickening of the small bowel in the pelvis correlate for enteritis. Moderate fecal retention correlate for constipation ASSESSMENT: 1. Abdominal pain with abdominal distention and evidence of constipation and mild wall thickening of the small bowel in the pelvis noted on CAT scan 2. History of metastatic non-small cell lung cancer PLAN: -NG tube placed for decompression -Downgrade diet to n.p.o. -Once abdomen is decompressed can continue with lactulose down the NG tube -Agree with Dulcolax suppository -Continue to monitor Physician Coremaking Machine Setter note has been reviewed by physician. Signing provider agrees with the documented findings, assessment, and plan of care. Attestation Patient seen and examined at bedside on 11/14/2024. Presented with chief complaint of abdominal pain, shortness of breath. She does have history of metastatic non-small cell lung cancer. CT of the abdomen pelvis performed and was reviewed with finding of moderate fecal retention. Patient was started on a bowel regimen and did have multiple loose bowel movements. She states that lactulose has made her abdominal pain worse with abdominal cramping. She also did have enema placed with some liquid stool output. At this point, nasogastric tube appears removable so we will be able to remove this tube for her. We will continue her on a bowel regimen. No plan for acute surgical intervention. Chay Phillips, Past Medical History Past Medical History: Cancer, COPD, GERD/Reflux, Hyperlipidemia, Pulmonary Embolus (PE) Additional Past Medical History / Comment(s): Current back and rib cancer. Ovarian cyst. Hx lung cancer 2018 w/wedge resection left upper lobe Oct 2019, hx PE 06/21/22, right lower lobe resection for lung cancer February 2020, had 4 rounds of chemo after that and was cancer free until February 2023. Started immunotherapy every 4 weeks. Last chemotherapy was April 2024. History of Any Multi-Drug Resistant Organisms: None Reported Past Surgical History: Orthopedic Surgery, Tonsillectomy Additional Past Surgical History / Comment(s): Right hand surgery, ectopic surgery, lung resection of left upper lobe and right lower lobe, 1994 had lymph nodes removed from right armpit. Past Anesthesia/Blood Transfusion Reactions: Motion Sickness Additional Past Anesthesia/Blood Transfusion Reaction / Comm: motion sickness in the car Past Psychological History: No Psychological Hx Reported Smoking Status: Former smoker Past Alcohol Use History: None Reported Past Drug Use History: None Reported - Past Family History Father Family Medical History: Cancer Mother Family Medical History: Cancer, Deep Vein Thrombosis (DVT), Pulmonary Embolus Medications and Allergies Home Medications Medication Instructions Recorded Confirmed Type Albuterol Inhaler [Ventolin Hfa 2 puff INHALATION RT-Q6H PRN 09/17/19 11/11/24 History Inhaler] Cetirizine HCl [Zyrtec] 10 mg PO DAILY 06/21/22 11/11/24 History Omeprazole Magnesium [PriLOSEC OTC] 20 mg PO BID 06/21/22 11/11/24 History Apixaban [Eliquis] 5 mg PO BID 30 Days #60 tab 06/24/22 11/11/24 Rx Ipratropium-Albuterol Nebulize 3 ml INHALATION RT-QID 30 Days 06/24/22 11/11/24 Rx [Duoneb 0.5 mg-3 mg/3 ml Soln] #300 ml Budesonide-Formot 160-4.5 Mcg 2 puff INHALATION RT-BID 02/28/23 11/11/24 History [Symbicort 160-4.5 Mcg Inhaler] Gabapentin [Neurontin] 300 mg PO TID 02/28/23 11/11/24 History Sennosides/Docusate Sodium [Senna 1 cap PO BID PRN 02/28/23 11/11/24 History Plus 8.6-50 mg Softgel] HYDROcodone/APAP 10-325MG [[place] 1 tab PO Q6HR PRN 01/05/24 11/11/24 History 10-325] Lidocaine/Menthol [Asperflex Max 1 patch TRANSDERM DAILY PRN 01/05/24 11/11/24 History 4%-1% Patch] Linaclotide [Linzess] 145 mcg PO DAILY PRN 01/05/24 11/11/24 History Ondansetron Odt [Zofran ODT] 8 mg PO Q6H PRN 01/05/24 11/11/24 History guaiFENesin [Mucinex] 600 mg PO Q12HR PRN #30 tab 01/08/24 11/11/24 Rx fentaNYL 50MCG/HR PATCH [Duragesic 1 patch TRANSDERM Q72H patch 10/20/24 11/11/24 Rx 50MCG/HR] Allergies Allergy/AdvReac Type Severity Reaction Status Date / Time sulfamethoxazole Allergy Rash/Hives Verified 11/11/24 20:50 [From Bactrim] trimethoprim [From Bactrim] Allergy Rash/Hives Verified 11/11/24 20:50 Surgical - Exam Osteopathic Statement: *. No significant issues noted on an osteopathic structural exam other than those noted in the History and Physical/Consult. Vital Signs Temp Pulse Resp BP Pulse Ox 97.9 F 123 H 18 120/73 96 11/11/24 17:03 11/11/24 17:03 11/11/24 17:03 11/11/24 17:03 11/11/24 17:03 Results - Labs 11/14/24 06:36 11/14/24 06:36 Abnormal Lab Results - Last 24 Hours (Table) 11/13/24 Range/Units 07:31 RBC 3.39 L (3.80-5.40) m/uL Hgb 9.1 L (11.4-16.0) gm/dL Hct 30.8 L (34.0-46.0) % MCHC 29.7 L (31.0-37.0) g/dL RDW 17.9 H (11.5-15.5) % Plt Count 500 H (150-450) k/uL Diabetes panel 11/13/24 Range/Units 07:31 Sodium 137 (137-145) mmol/L Potassium 3.8 (3.5-5.1) mmol/L Chloride 101 (98-107) mmol/L Carbon Dioxide 24 (22-30) mmol/L BUN 15 (7-17) mg/dL Creatinine 0.64 (0.52-1.04) mg/dL Glucose 82 (74-99) mg/dL Calcium 8.9 (8.4-10.2) mg/dL Calcium panel 11/13/24 Range/Units 07:31 Calcium 8.9 (8.4-10.2) mg/dL Pituitary panel 11/13/24 Range/Units 07:31 Sodium 137 (137-145) mmol/L Potassium 3.8 (3.5-5.1) mmol/L Chloride 101 (98-107) mmol/L Carbon Dioxide 24 (22-30) mmol/L BUN 15 (7-17) mg/dL Creatinine 0.64 (0.52-1.04) mg/dL Glucose 82 (74-99) mg/dL Calcium 8.9 (8.4-10.2) mg/dL Adrenal panel 11/13/24 Range/Units 07:31 Sodium 137 (137-145) mmol/L Potassium 3.8 (3.5-5.1) mmol/L Chloride 101 (98-107) mmol/L Carbon Dioxide 24 (22-30) mmol/L BUN 15 (7-17) mg/dL Creatinine 0.64 (0.52-1.04) mg/dL Glucose 82 (74-99) mg/dL Calcium 8.9 (8.4-10.2) mg/dL
[2024-11-13] MEDS ORDERED: PROCHLORPERAZINE INJ 10 MG/2 ML VIAL IVP PRN (13:59)
--- NOTE | 2024-11-13 14:25 | XR ---
EXAMINATION TYPE: XR chest 1V DATE OF EXAM: 11/13/2024 2:15 PM COMPARISON: None. CLINICAL INDICATION: Female, 59 years old with history of check NG tube placement, TECHNIQUE: XR chest 1V view(s) obtained. FINDINGS: The heart size is normal. 11/11/2024 The pulmonary vasculature is normal. There is a moderate right pleural effusion. Minimal left costophrenic angle pleural effusion is prese nt. Port is present on the right with tip in superior vena cava region. Nasogastric tube is in place with tip in left upper quadrant of the abdomen. IMPRESSION: 1. Moderate right pleural effusion. 2. Minimal left costophrenic angle pleural effusion. 3. Nasogastric tube tip within the left upper quadrant of the abdomen. [facility], , 11/13/2024 2:22 PM
--- NOTE | 2024-11-13 14:53 | P.PN ---
Subjective Progress Note Date: 11/13/24 Patient is a 59-year-old female with past medical history significant for metastatic non-small cell lung cancer, COPD, and PE anticoagulated on Eliquis. Her primary care provider is Dr. Foster. Her counter control operator is Dr. Adams. Non- small cell lung cancer originally diagnosed back in 2019. she has had bilateral lung wedge resections; of the left upper lobe in October 2019, as well as, right lower lung resection in Feb, 2021. A follow-up PET scan in February 2023 indicating possible disease recurrence. 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 Her established oncologist is Dr. Castillo. Previously maintained on chemotherapy with Alimta and cisplatin. Most recent available PET scan taken on 07/25/2024 showing overall mixed response to therapy with slightly increased radiotracer activity throughout the right pleural and anterior right seventh rib with mild decrease in radiotracer activity within the right 10th rib and posterior costophrenic pleural region. Development of nonspecific left anterior peritoneal stranding changes with mild FDG uptake, could represent early peritoneal metastasis versus other etiologies such as infectious/inflammatory nature. She was then started on Opdivo treatments, which are currently on hold. Believes her last treatment w as in September,. Patient presented to emergency department yesterday evening with a chief comp laint of hemoptysis. She is being evaluated in the ED, room 23. She has been coughing up small dime size to quarter size clots. She states this is an been ongoing over the weekend. Estimates total amount in 24 hours less than a medicine cup. She takes Eliquis for previous history PE. She has not missed any doses. She denies any chest pain, lightheadedness, syncopal events. Denies any infectious-like symptoms such as fever, chills, apparent sputum production. She is on room air oxygen with an SpO2 of 96% on bedside monitor. No respiratory distress. Chest x-ray is relatively unchanged with near complete opacification of the right lung and volume loss. Recent CT of the chest with contrast done 11/07/2024 demonstrates ongoing volume loss and extensive pleural/parenchymal opacities throughout the right hemithorax. Pleural rind at the lower lung increased compared to 202. Confluent lower lung opacities have also increased compared to 2023, but show improvement from recent 10/19/2024 study. Few subcentimeter pulmonary nodules on the left, concerning for metastatic disease. Complex ascites fluid partially visualized in the upper abdomen scalloping the left liver lobe and surrounding some upper abdominal bowel loops. Concerning for disease progression. She has also been complaining of intractable nausea and vomiting. Reports yellow to brown emesis. Which started approximately 2 days ago. Denies any hematemesis. Denies any hematochezia or melena. Her last normal bowel movement was 3 days ago. She cannot keep any food or water down. Some associated non- localized abdominal pain. She feels constipated, and frequently takes narcotics on an outpatient basis. Abdomen is distended and generally tender to palpation. Pain rated 8 on a 10 point numerical scale. Normal sinus infusing at 75 mL/h. CBC: WBC count 11.6, hemoglobin 10.1, platelets 453. CMP: Sodium 131, potassium 4.1, chloride 91, serum bicarb 27, BUN 22, creatinine 0.8, glucose 79. LFTs unremarkable. Total bilirubin 0.4. Troponin 0.019. EKG: Sinus tachycardia, rate 116 bpm, right axis deviation, no obvious acute ischemic changes. Viral screen negative for influenza, RSV, COVID. Current most recent vitals: afebrile, heart rate 109 bpm, blood pressure 131/81 mmHg, nontachypneic, SpO2 is 95% on room air oxygen. The patient is seen today November 13, 2024 in follow-up on the regular medical floor. She is currently sitting up in bed. Awake and alert in no acute distress. Denies any worsening shortness of breath, cough or congestion. She has just had very scant amount of blood-tinged sputum in the past 24 hours. She is maintaining O2 saturation in the 90s on room air. Her Eliquis remains on hold. Her abdominal discomfort is subsiding. She did receive laxatives with some improvement in bowel function. Chest x-ray shows moderate right pleural effusion. Minimal left costophrenic angle pleural effusion. Unchanged. White count 8.9. Hemoglobin 9.1. Platelets 500,000. Sodium 137. Potassium 3.8. Bicarb 24. BUN 15. Creatinine 0.64. Glucose 82. She is continued on May mentin. Remains on DuoNeb inhalations, Symbicort. Pain control with [place]. She is on Senokot, lactulose, Colace, Dulcolax suppository. 0.9 normal saline at 75 mL/h. Nasogastric tube in place. Nothing by mouth. Objective - Vital Signs Vital signs: Vital Signs Temp 97.8 F 11/13/24 12:17 Pulse 118 H 11/13/24 12:17 Resp 17 11/13/24 12:17 BP 138/64 11/13/24 12:17 Pulse Ox 97 11/13/24 12:17 FiO2 Intake & Output 11/12/24 11/13/24 11/13/24 18:59 06:59 18:59 Intake Total 825 Balance 825 Weight 51.256 kg Intake: Intake, IV Titration 825 Amount Sodium Chloride 0.9% 1, 825 000 ml @ 75 mls/hr IV . [id number] [facility] Rx#:[id number] Other: # Voids 1 1 # Bowel Movements 1 1 1 - Exam GENERAL EXAM: Alert, cachectic 59-year-old female, on room air, fairly comfortable in no apparent distress. HEAD: Normocephalic. EYES: Normal reaction of pupils, equal size. NOSE: Nasogastric tube in place. Clear with pink turbinates. THROAT: No erythema or exudates. NECK: No masses, no JVD. CHEST: No chest wall deformity. LUNGS: Equal air entry with crackles, breath sounds over the right lung. CVS: S1 and S2 normal with no audible murmur, regular rhythm. ABDOMEN: No hepatosplenomegaly, normal bowel sounds, no guarding or rigidity. SPINE: No scoliosis or deformity SKIN: No rashes CENTRAL NERVOUS SYSTEM: No focal deficits, tone is normal in all 4 extremities. EXTREMITIES: There is no peripheral edema. No clubbing, no cyanosis. Peripheral pulses are intact. - Labs CBC & Chem 7: 11/13/24 07:31 11/13/24 07:31 Labs: Abnormal Lab Results - Last 24 Hours (Table) 11/13/24 Range/Units 07:31 RBC 3.39 L (3.80-5.40) m/uL Hgb 9.1 L (11.4-16.0) gm/dL Hct 30.8 L (34.0-46.0) % MCHC 29.7 L (31.0-37.0) g/dL RDW 17.9 H (11.5-15.5) % Plt Count 500 H (150-450) k/uL Assessment and Plan Assessment: Small hemoptysis, estimated at less than 30 mL in 24-hour timeframe, continues to have intermittent episodes with clots. Eliquis is on hold. Intractable nausea vomiting and abdominal pain. CT of the abdomen and pelvis shows abdominal ascites, mild wall thickening of small bowel in the pelvis correlate for enteritis, and moderate fecal retention concerning for const ipation. Right lower lobe pleural thickening, volume loss, and likely atelectasis. Being addressed by surgery, nasogastric tube placed Hypovolemic hyponatremia, secondary nausea, vomiting and reduced oral intake Recurrent metastatic non-small cell lung cancer Severe chronic obstructive pulmonary disease, FEV1 is 31% of predicted, stable Chronic pain, secondary to complications of malignancy Chronic hypoxemic respiratory failure, uses 2 L/min nasal cannula as needed at home Former tobacco smoker History of pulmonary embolism, chronically anticoagulated on Eliquis outpatient basis Chronic anemia, hemoglobin stable at 9.1 g/dL Plan: The patient was seen and evaluated Imaging, labs and medications reviewed No further hemoptysis Stable and on room air Surgery consulted for abdominal pain Nasogastric tube in place Receiving laxatives Continue bronchodilators Continue Augmentin Increase activity as tolerated We will continue to follow I have personally seen and examined the patient, performed the documentation and the assessment and plan as written. Number of minutes spent on the visit: 10 Dictation was produced using [employer] dictation software. Please excuse any grammatical, word or spelling errors.
--- NOTE | 2024-11-13 15:08 | P.PN ---
Subjective Progress Note Date: 11/13/24 Hospital course: Patient is a 59-year-old female with PMH of stage IV lung cancer managed by Dr. Camacho, COPD, GERD, hyperlipidemia, pulmonary embolism on Eliquis presents to the ER with a complaint of shortness of breath and hemoptysis that started 2 days ago. Patient describes she has been numerous episodes of hemoptysis for last 2 days associated with passing of small blood clots. Patient is also endorsing diffuse abdominal pain which states is 7 out of 10 but exacerbated with palpitation. Denies any blood in stool. She has also been endorsing nausea which has resulted in a poor appetite and has not been able to tolerate solid food for the last couple of days. Patient states that she is on Eliquis for 3 years after the episodes of pulmonary embolism. Patient denies any similar episodes of hemoptysis in the past. Patient states that she is currently being managed by Dr. Castillo at [facility]. She is due to start immunotherapy. Patient has had recurrent pleural effusions and has lost ~25 pounds over the last 3 months and has been feeling fatigue. Denies any dysphagia. Family history significant for lung cancer cancer in his 60s. At the time of interview, patient states that she is feeling much better and her nausea and vomiting are controlled. ROS: Patient is also complaining of constipation last 2 days. Patient is also endorsing heartburn and epigastric region. Patient denies any chest pain, fever, chills, weakness and numbness in upper and lower extremities. Laboratory data: WBC 11.6, hemoglobin 10.1, hematocrit 32.0, platelet count 453, PT 12.1, INR 1.0, APTT 21.6, sodium 131, potassium 4.1, chloride 91, bicarb 27, BUN 22, creatinine 0.8, magnesium 1.9, calcium 9.3, AST 30, ALT 17, troponin one 0.019, viral serologies negative. Images: Chest x-ray independently interpreted shows small right pleural effusion associated with atelectasis and some hazy appearance in the right upper lung KUB interpreted independently shows large stool burden otherwise there is no evidence for acute process. EKG interpreted independently shows sinus tachycardia. QRS duration is normal 84 ms. AR interval is normal 124 ms. Poor R wave progression noted. Vitals: Tmax 97.9 F, pulse rate 123, respiration 18, blood pressure 120/73, oxygen saturation 96.0 room air. Pertinent positives and negatives as discussed above, a complete review of systems was performed and all other systems are negative. Subjective: 11/12/2024: Patient seen and evaluated bedside. Patient reports vomiting last night, multiple episodes. She denies any blood in her vomit. Still coughing up blood, clot like quarter size. Has not had a bowel movement this morning. 11/13/2024: Patient seen evaluated bedside. Patient reports stool yesterday a fter suppository, but has not had a stool since. Still complaining of abdominal pain. Reports that hemoptysis has decreased. Patient denies vomiting. Vitals: Signs Reviewed Physical Exam: General: nontoxic, no distress, appears at stated age Derm: warm, dry, intact Head: atraumatic, normocephalic, symmetric Eyes: EOMI, anicteric sclera Mouth: no lip lesion, mucus membranes moist Cardiovascular: S1 S2 reg, no murmur, rubs, or gallops Lungs: CTA bilateral, no rhonchi, no rales, no accessory muscle use Abdominal: soft, non-tender to palpataion, no appreciable organomegaly Extremities: no gross muscle atrophy, no edema, no contractures Neuro: Alert, Oriented, CNII-XII grossly intact, gait normal Psych: well appearing, appropriate affect Data Received Today: Pertinent Labs: WBC 8.9, Hgb 9.1, MCV 90.8, platelet 500, glucose 108 Imaging: CXR independently interpreted displaying right moderate pleural effusion, NG tube tip within LUQ Assessment and Plan: This is a 59-year-old female with PMH of stage IV lung cancer metastatic is currently being hospitalized for intractable nausea and vomiting the last couple of days associated with hemoptysis and overall generalized weakness. Active: #Intractable nausea and vomiting in the setting of constipation and Stage 4 lung cancer History of stage IV lung cancer KUB shows large stool burden Colace 100 mg p.o. twice daily MiraLAX 30 mg p.o. once stat given in the ER Continue with Zofran 4 mg IVP every 4 hours as needed Senokot 8.6 mg p.o. twice daily Continue on home fentanyl patch next Bisacodyl 10 mg suppository General Surgery consulted note read. NG tube placed for decompression, downgraded to NPO, lactulose down NG tube once abdomen is decompressed #Hemoptysis #Possible postobstructive pneumonia #Non-small cell lung cancer #Normocytic anemia, at baseline Hold Eliquis, per pulmonology Chest x-ray displayed moderate right pleural effusion - Hemoglobin stable, continue to monitor Pulmonology following, continue Augmentin 875-125 mg PO q12hr Oncology following #GERD Protonix 40 mg IV daily, clear liquid diet for now; switch Protonix to oral once tolerated #. Sinus tachycardia Likely in the setting of intractable vomiting hypovolemia and pain Chronic: # COPD, not in exacerbation Continue with home breathing treatment O2 saturation 95% on room air Resolved: Leukocytosis Hypovolemic hyponatremia Hypoglycemia F: Normal saline at 75 cc/HR E: Replete as needed N: NPO A: Ambulates independently DVT ppx: SCDs Code status: Full code Anticipated discharge place: Pending clinical course Anticipated discharge time: Pending clinical Josh Amin MD PGY-1 IM Dictation was produced using [employer] dictation software. please excuse any grammatical, word or spelling errors. I have seen and evaluated the patient today. Discussed with the resident and agree with the residents finding and plan as documented in the resident's note. Changes highlighted in blue font. Objective - Vital Signs Vital signs: Vital Signs Temp 97.7 F 11/13/24 07:16 Pulse 110 H 11/13/24 08:02 Resp 18 11/13/24 08:02 BP 136/64 11/13/24 07:16 Pulse Ox 98 11/13/24 08:02 FiO2 Intake & Output 11/12/24 11/13/24 11/13/24 18:59 06:59 18:59 Intake Total 825 Balance 825 Weight 51.256 kg Intake: Intake, IV Titration 825 Amount Sodium Chloride 0.9% 1, 825 000 ml @ 75 mls/hr IV . [id number] [facility] Rx#:[id number] Other: # Voids 1 1 # Bowel Movements 1 1 - Labs CBC & Chem 7: 11/13/24 07:31 11/13/24 07:31 Labs: Abnormal Lab Results - Last 24 Hours (Table) 11/12/24 11/13/24 Range/Units 08:02 07:31 RBC 3.39 L (3.80-5.40) m/uL Hgb 9.1 L (11.4-16.0) gm/dL Hct 30.8 L (34.0-46.0) % MCHC 29.7 L (31.0-37.0) g/dL RDW 17.9 H (11.5-15.5) % Plt Count 500 H (150-450) k/uL D-Dimer 0.82 H (<0.60) mg/L FEU
[2024-11-13] MEDS: BENZOCAINE SPRAY 1 CAN MUCOUS MEM PRN (15:58)
[2024-11-13 17:35] LABS: Glucose,Whole Blood 90 mg/dL (70-110)
--- NOTE | 2024-11-13 19:44 | P.PN ---
Subjective Progress Note Date: 11/13/24 Principal diagnosis: NSCLC, severe constipation In f/u today pt has NG tube in place, she vomited several times during placement, abd is still very tender, she is very uncomfortable, pain is abd and back persists. Denies F or new cough, denies hemoptysis today Objective - Vital Signs Vital signs: Vital Signs Temp 97.8 F 11/13/24 12:17 Pulse 118 H 11/13/24 12:17 Resp 17 11/13/24 12:17 BP 138/64 11/13/24 12:17 Pulse Ox 97 11/13/24 12:17 FiO2 Intake & Output 11/12/24 11/13/24 11/13/24 18:59 06:59 18:59 Intake Total 825 Balance 825 Weight 51.256 kg Intake: Intake, IV Titration 825 Amount Sodium Chloride 0.9% 1, 825 000 ml @ 75 mls/hr IV . [id number] [facility] Rx#:[id number] Other: # Voids 1 1 # Bowel Movements 1 1 1 - Constitutional General appearance: Present: cooperative, mild distress, thin - EENT Eyes: Present: anicteric sclerae, EOMI ENT: Present: hearing grossly normal - Respiratory Respiratory: bilateral: diminished - Cardiovascular Rhythm: regular - Gastrointestinal General gastrointestinal: Present: decreased bowel sounds, distended, tenderness - Neurologic Neurologic: Present: CNII-XII intact - Musculoskeletal Musculoskeletal: Present: generalized weakness - Psychiatric Psychiatric: Present: A&O x's 3, appropriate affect, intact judgment & insight - Labs CBC & Chem 7: 11/13/24 07:31 11/13/24 07:31 Labs: Abnormal Lab Results - Last 24 Hours (Table) 11/13/24 Range/Units 07:31 RBC 3.39 L (3.80-5.40) m/uL Hgb 9.1 L (11.4-16.0) gm/dL Hct 30.8 L (34.0-46.0) % MCHC 29.7 L (31.0-37.0) g/dL RDW 17.9 H (11.5-15.5) % Plt Count 500 H (150-450) k/uL - Imaging and Cardiology Chest x-ray: report reviewed Assessment and Plan (1) Abdominal pain Current Visit: Yes Status: Acute Priority: High Code(s): R10.9 - UNSPECIFIED ABDOMINAL PAIN SNOMED Code(s): 82438539 (2) Hemoptysis Current Visit: Yes Status: Acute Priority: High Code(s): R04.2 - HEMOPTYSIS SNOMED Code(s): 00826543 (3) Adenocarcinoma of lung Current Visit: Yes Status: Acute Priority: High Code(s): C34.90 - MALIGNANT NEOPLASM OF UNSP PART OF UNSP BRONCHUS OR LUNG SNOMED Code(s): 860964918 Plan: Abdominal pain -Patient has been complaining of persistent and progressive abdominal pain for the last several weeks. CT of the abdomen is showing ascites, thickening of the small bowel, questioning enteritis, pretty significant fecal retention. KUB showing a large stool burden. -Patient has received multiple cathartics, those are to continue. Surgery has seen pt. NG tube placed for decompression -No ascites on US abd Hemoptysis -Hemoptysis started about 2 weeks ago, she notes more after updrafts next. -Pulmonary following. Pending Pulmonary assessment and recommendations. Agree with holding eliquis Metastatic non-small cell lung cancer -Diagnosis and treatment as stated in consult. -Recent concerns for disease progression. There were orders for scans. Will wait until acute condition managed. Pain, abd and back -Cont fentanyl. May have to consider dose increase -norco freq adjusted -Numerous meds for constipation ordered
[2024-11-13 20:24] LABS: Glucose,Whole Blood 82 mg/dL (70-110)
[2024-11-13] MEDS: HYDROcodone/APAP 10-325MG 1 EACH TAB PO PRN (21:10)
[2024-11-14 06:50] LABS: Anisocytosis Slight; Basophils % (A) 0 %; Eosinophils % (A) 1 %; HCT 26.6 % (34.0-46.0); HGB 8.2 gm/dL (11.4-16.0); Hypochromasia Marked; Lymphocytes # (A) 1.3 k/uL (1.0-4.8); Lymphocytes % (A) 18 %; MCH 27.4 pg (25.0-35.0); MCHC 30.7 g/dL (31.0-37.0); MCV 89.2 fL (80.0-100.0); Mean Platelet Volume 7.6; Monocytes # (A) 0.4 k/uL (0-1.0); Monocytes % (A) 6 %; Neutrophils # (A) 5.2 k/uL (1.3-7.7); Neutrophils % (A) 74 %; Platelet Count 428 k/uL (150-450); RBC 2.98 m/uL (3.80-5.40); RDW 17.5 % (11.5-15.5); WBC 7.1 k/uL (3.8-10.6)
[2024-11-14 07:02] LABS: African American GFR (CKD) >90 (>60 ml/min/1.73 sqM); Anion Gap 2 mmol/L; Blood Urea Nitrogen 11 mg/dL (7-17); Calcium 8.5 mg/dL (8.4-10.2); Carbon Dioxide 32 mmol/L (22-30); Chloride 104 mmol/L (98-107); Glucose 74 mg/dL (74-99); Magnesium 1.9 mg/dL (1.6-2.3); Non-African American GFR(CKD) >90 (>60 ml/min/1.73 sqM); Potassium 3.3 mmol/L (3.5-5.1); Sodium 138 mmol/L (137-145)
[2024-11-14] MEDS: POTASSIUM CHLORIDE ER 20 MEQ TAB.ER PO STA (08:29)
--- NOTE | 2024-11-14 12:42 | P.PN ---
Subjective Progress Note Date: 11/14/24 Patient is a 59-year-old female with past medical history significant for metastatic non-small cell lung cancer, COPD, and PE anticoagulated on Eliquis. Her primary care provider is Dr. Foster. Her mental health worker is Dr. Adams. Non- small cell lung cancer originally diagnosed back in 2019. she has had bilateral lung wedge resections; of the left upper lobe in October 2019, as well as, right lower lung resection in Feb, 2021. A follow-up PET scan in February 2023 indicating possible disease recurrence. 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 Her established oncologist is Dr. Castillo. Previously maintained on chemotherapy with Alimta and cisplatin. Most recent available PET scan taken on 07/25/2024 showing overall mixed response to therapy with slightly increased radiotracer activity throughout the right pleural and anterior right seventh rib with mild decrease in radiotracer activity within the right 10th rib and posterior costophrenic pleural region. Development of nonspecific left anterior peritoneal stranding changes with mild FDG uptake, could represent early peritoneal metastasis versus other etiologies such as infectious/inflammatory nature. She was then started on Opdivo treatments, which are currently on hold. Believes her last treatment w as in September,. Patient presented to emergency department yesterday evening with a chief comp laint of hemoptysis. She is being evaluated in the ED, room 23. She has been coughing up small dime size to quarter size clots. She states this is an been ongoing over the weekend. Estimates total amount in 24 hours less than a medicine cup. She takes Eliquis for previous history PE. She has not missed any doses. She denies any chest pain, lightheadedness, syncopal events. Denies any infectious-like symptoms such as fever, chills, apparent sputum production. She is on room air oxygen with an SpO2 of 96% on bedside monitor. No respiratory distress. Chest x-ray is relatively unchanged with near complete opacification of the right lung and volume loss. Recent CT of the chest with contrast done 11/07/2024 demonstrates ongoing volume loss and extensive pleural/parenchymal opacities throughout the right hemithorax. Pleural rind at the lower lung increased compared to 202. Confluent lower lung opacities have also increased compared to 2023, but show improvement from recent 10/19/2024 study. Few subcentimeter pulmonary nodules on the left, concerning for metastatic disease. Complex ascites fluid partially visualized in the upper abdomen scalloping the left liver lobe and surrounding some upper abdominal bowel loops. Concerning for disease progression. She has also been complaining of intractable nausea and vomiting. Reports yellow to brown emesis. Which started approximately 2 days ago. Denies any hematemesis. Denies any hematochezia or melena. Her last normal bowel movement was 3 days ago. She cannot keep any food or water down. Some associated non- localized abdominal pain. She feels constipated, and frequently takes narcotics on an outpatient basis. Abdomen is distended and generally tender to palpation. Pain rated 8 on a 10 point numerical scale. Normal sinus infusing at 75 mL/h. CBC: WBC count 11.6, hemoglobin 10.1, platelets 453. CMP: Sodium 131, potassium 4.1, chloride 91, serum bicarb 27, BUN 22, creatinine 0.8, glucose 79. LFTs unremarkable. Total bilirubin 0.4. Troponin 0.019. EKG: Sinus tachycardia, rate 116 bpm, right axis deviation, no obvious acute ischemic changes. Viral screen negative for influenza, RSV, COVID. Current most recent vitals: afebrile, heart rate 109 bpm, blood pressure 131/81 mmHg, nontachypneic, SpO2 is 95% on room air oxygen. The patient is seen today November 13, 2024 in follow-up on the regular medical floor. She is currently sitting up in bed. Awake and alert in no acute distress. Denies any worsening shortness of breath, cough or congestion. She has just had very scant amount of blood-tinged sputum in the past 24 hours. She is maintaining O2 saturation in the 90s on room air. Her Eliquis remains on hold. Her abdominal discomfort is subsiding. She did receive laxatives with some improvement in bowel function. Chest x-ray shows moderate right pleural effusion. Minimal left costophrenic angle pleural effusion. Unchanged. White count 8.9. Hemoglobin 9.1. Platelets 500,000. Sodium 137. Potassium 3.8. Bicarb 24. BUN 15. Creatinine 0.64. Glucose 82. She is continued on May mentin. Remains on DuoNeb inhalations, Symbicort. Pain control with [place]. She is on Senokot, lactulose, Colace, Dulcolax suppository. 0.9 normal saline at 75 mL/h. Nasogastric tube in place. Nothing by mouth. The patient is seen today November 14, 2024 in follow-up on the regular medical floor. She is awake and alert in no acute distress. Maintaining O2 saturations in the mid 90s on room air. Afebrile. Hemodynamically stable. No further episodes of hemoptysis.. Eliquis remains on hold. She was having continued issues with constipation and abdominal distention. A nasogastric tube was placed surgical recommendations. Moderate right pleural effusion. Minimal left costophrenic angle pleural effusion. Nasogastric tube within the left upper quadrant of the abdomen. White count 7.1. Hemoglobin 8.2. Platelets 428. Sodium 138. Potassium 3.3. Bicarb 32. BUN 11. Creatinine 0.54. Glucose 74. Continued on bronchodilators. Receiving laxatives. Having bowel movements. Objective - Vital Signs Vital signs: Vital Signs Temp 97.5 F L 11/14/24 08:40 Pulse 116 H 11/14/24 08:40 Resp 17 11/14/24 08:40 BP 136/80 11/14/24 08:40 Pulse Ox 96 11/14/24 08:40 FiO2 Intake & Output 11/13/24 11/14/24 11/14/24 18:59 06:59 18:59 Intake Total 1800 1190 Output Total 500 500 Balance 1300 690 Intake: Intake, IV Titration 1800 750 Amount Sodium Chloride 0.9% 1, 1800 750 000 ml @ 75 mls/hr IV . [id number] [facility] Rx#:[id number] Oral 440 Output: Gastric Drainage 500 500 Other: # Voids 1 # Bowel Movements 1 2 - Exam GENERAL EXAM: Alert, 59-year-old female, on room air, comfortable in no apparent distress. HEAD: Normocephalic. EYES: Normal reaction of pupils, equal size. NOSE: Nasogastric tube in place. Clear with pink turbinates. THROAT: No erythema or exudates. NECK: No masses, no JVD. CHEST: No chest wall deformity. LUNGS: Equal air entry with crackles, breath sounds over the right lung. CVS: S1 and S2 normal with no audible murmur, regular rhythm. ABDOMEN: No hepatosplenomegaly, normal bowel sounds, no guarding or rigidity. SPINE: No scoliosis or deformity SKIN: No rashes CENTRAL NERVOUS SYSTEM: No focal deficits, tone is normal in all 4 extremities. EXTREMITIES: There is no peripheral edema. No clubbing, no cyanosis. Peripheral pulses are intact. - Labs CBC & Chem 7: 11/14/24 06:36 11/14/24 06:36 Labs: Abnormal Lab Results - Last 24 Hours (Table) 11/14/24 11/14/24 Range/Units 06:36 06:36 RBC 2.98 L (3.80-5.40) m/uL Hgb 8.2 L (11.4-16.0) gm/dL Hct 26.6 L (34.0-46.0) % MCHC 30.7 L (31.0-37.0) g/dL RDW 17.5 H (11.5-15.5) % Potassium 3.3 L (3.5-5.1) mmol/L Carbon Dioxide 32 H (22-30) mmol/L Assessment and Plan Assessment: Small hemoptysis, estimated at less than 30 mL in 24-hour timeframe, continues to have intermittent episodes with clots. No further hemoptysis in the past 24 hours from November 13 through . Eliquis is on hold. Intractable nausea vomiting and abdominal pain. CT of the abdomen and pelvis shows abdominal ascites, mild wall thickening of small bowel in the pelvis correlate for enteritis, and moderate fecal retention concerning for constipation. Right lower lobe pleural thickening, volume loss, and likely atelectasis. Being addressed by surgery, nasogastric tube placed Hypovolemic hyponatremia, secondary nausea, vomiting and reduced oral intake Recurrent metastatic non-small cell lung cancer Severe chronic obstructive pulmonary disease, FEV1 is 31% of predicted, stable Chronic pain, secondary to complications of malignancy Chronic hypoxemic respiratory failure, uses 2 L/min nasal cannula as needed at home Former tobacco smoker History of pulmonary embolism, chronically anticoagulated on Eliquis outpatient basis Chronic anemia, hemoglobin stable at 9.1 g/dL Plan: The patient was seen and evaluated Labs and medications reviewed No further hemoptysis Stable and on room air No plans for bronchoscopy Nasogastric tube in place Increase activity as tolerated We will continue to follow I have personally seen and examined the patient, performed the documentation and the assessment and plan as written. Number of minutes spent on the visit: 10 Dictation was produced using [employer] software. Please excuse any grammatical, word or spelling errors.
--- NOTE | 2024-11-14 13:58 | CDI ---
Documentation Clarification Form Date: 11/14/2024 01:36:17 PM From: Bella Alegria RN CCDS Phone: [phone] Admit Date: 11/11/2024 08:01:00 PM Patient Name: Cat Rodriguez Visit Number: [id number] Discharge Date: ATTENTION: The Clinical Documentation Specialists (CDI) and [facility] Coding Staff appreciate your assistance in clarifying documentation. Please respond to the clarification below the line at the bottom and electronically sign. The CDI & [facility] Coding staff will review the response and follow-up if needed. Please note: Queries are made part of the Legal Health Record. If you have any questions, please contact the author of this message via ITS. Dr: Ruben oSriano There is documentation of constipation is documented in the HP 11/11 and subsequent medicine notes 11/12 and 11/13. Additional clarification is requested. History/Risk Factors: 59 year old female presents to the ED for evaluation of shortness of breath, hemoptysis also nausea and vomiting with abdominal pain. Medical history: HLD, COPD, GERD and Stage IV lung cancer. 11/11, HP. Clinical Indicators: 11/11, KUB: Large stool burden otherwise, 11/12, CT Abd with contrast: 1.Airspace consolidation of the RIGHT lung base, concerning for Pneumonia. 2. Abdominal ascites. Mild wall thickening of small bowel in the pelvis, correlate for enteritis. 3. Moderate fecal retention, correlate for constipation. 11/12 Pulmonary Consult: She feels constipated, and frequently takes narcotics on an outpatient basis. Treatment: 11/11 Miralax 30mg po x 1; 11/11 0.9NS 1L IVFL, 11/11 0.9NS IV 75c/hr; 11/12 Dulcolax 10mg rectal x 1; 11/12 Lactulose 30mg po bid vinay, 11/13 Dulcolax 10mg Rectal x 1; Can you please clarify constipation? [ x ] Constipation due to narcotics [ ] Constipation due to (specify) [ ] Other, please specify [ ] Unable to determine (Template Last Revised: December 2020) MTDD
--- NOTE | 2024-11-14 16:20 | P.PN ---
Subjective Progress Note Date: 11/14/24 SURGICAL PROGRESS NOTE CHIEF COMPLAINT: Abdominal pain, shortness of breath and hemoptysis HISTORY OF PRESENT ILLNESS: Patient had NG tube placed yesterday. NG tube with 500 out yesterday and 500 out this morning. She did report some bowel movements. She is having flatus. She does continue to complain of abdominal pain. Pain is more crampy. Abdomen is softer. She is mildly tachycardic. Afebrile. WBC 7.1 Hgb 8.2 and potassium is 3.3. PHYSICAL EXAM: VITAL SIGNS: Reviewed. GENERAL: Well-developed in no acute distress. ABDOMEN: Distended. Little softer today. Diffuse tenderness with palpation NEUROLOGIC: Alert and oriented. Cranial nerves II through XII grossly intact. ASSESSMENT: 1. Abdominal pain with abdominal distention and evidence of constipation and mild wall thickening of the small bowel in the pelvis noted on CAT scan 2. History of metastatic non-small cell lung cancer PLAN: -Continue NG tube for decompression -Keep patient n.p.o. -At this time we will discontinue the lactulose. This may be contributing to patient's abdominal cramping -Soap celia enema ordered -Continue to monitor Physician Color Blender note has been reviewed by physician. Signing provider agrees with the documented findings, assessment, and plan of care. Attestation Patient seen and examined at bedside on 11/14/2024. Presented with chief complaint of abdominal pain, shortness of breath. She does have history of metastatic non-small cell lung cancer. Patient was started on a bowel regimen and did have multiple loose bowel movements. She states that lactulose has made her abdominal pain worse with abdominal cramping. She also did have enema placed with some liquid stool output. At this point, nasogastric tube appears removable so we will be able to remove this tube for her. We will continue her on a bowel regimen. No plan for acute surgical intervention. Chay Phillips DO Objective - Vital Signs Vital signs: Vital Signs Temp 98.2 F 11/14/24 13:19 Pulse 113 H 11/14/24 13:19 Resp 16 11/14/24 13:19 BP 135/84 11/14/24 13:19 Pulse Ox 95 11/14/24 13:19 FiO2 Intake & Output 11/13/24 11/14/24 11/14/24 18:59 06:59 18:59 Intake Total 1800 1190 Output Total 500 500 Balance 1300 690 Intake: Intake, IV Titration 1800 750 Amount Sodium Chloride 0.9% 1, 1800 750 000 ml @ 75 mls/hr IV . [id number] [facility] Rx#:[id number] Oral 440 Output: Gastric Drainage 500 500 Other: # Voids 1 # Bowel Movements 1 2 - Labs CBC & Chem 7: 11/14/24 06:36 11/14/24 06:36 Labs: Abnormal Lab Results - Last 24 Hours (Table) 11/14/24 11/14/24 Range/Units 06:36 06:36 RBC 2.98 L (3.80-5.40) m/uL Hgb 8.2 L (11.4-16.0) gm/dL Hct 26.6 L (34.0-46.0) % MCHC 30.7 L (31.0-37.0) g/dL RDW 17.5 H (11.5-15.5) % Potassium 3.3 L (3.5-5.1) mmol/L Carbon Dioxide 32 H (22-30) mmol/L
--- NOTE | 2024-11-14 17:39 | P.PN ---
Subjective Progress Note Date: 11/14/24 Principal diagnosis: NSCLC, severe constipation In f/u today pt cont to have NG tube in place, she looks better today, just tired. She has been having a lot of sm liquid stools all day. 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 [id number] [facility] Rx#:[id number] Oral 440 Output: Gastric Drainage 500 500 Other: # Voids 1 # Bowel Movements 1 2 - Constitutional General appearance: Present: cooperative, no acute distress, thin - EENT Eyes: Present: anicteric sclerae, EOMI ENT: Present: hearing grossly normal - Respiratory Respiratory: bilateral: diminished - Cardiovascular Details: Skin warm, well-perfused - Peripheral edema foot Peripheral Edema: bilateral: Trace - Gastrointestinal General gastrointestinal: Present: tenderness - Integumentary Integumentary: Present: pale - Neurologic Neurologic: Present: CNII-XII intact - Musculoskeletal Musculoskeletal: Present: generalized weakness - Psychiatric Psychiatric: Present: A&O x's 3, appropriate affect, intact judgment & insight - Labs CBC & Chem 7: 11/14/24 06:36 11/14/24 06:36 Labs: Abnormal Lab Results - Last 24 Hours (Table) 11/14/24 11/14/24 Range/Units 06:36 06:36 RBC 2.98 L (3.80-5.40) m/uL Hgb 8.2 L (11.4-16.0) gm/dL Hct 26.6 L (34.0-46.0) % MCHC 30.7 L (31.0-37.0) g/dL RDW 17.5 H (11.5-15.5) % Potassium 3.3 L (3.5-5.1) mmol/L Carbon Dioxide 32 H (22-30) mmol/L Assessment and Plan (1) Abdominal pain Current Visit: Yes Status: Acute Priority: High Code(s): R10.9 - UNSPECIFIED ABDOMINAL PAIN SNOMED Code(s): 20998809 (2) Hemoptysis Current Visit: Yes Status: Acute Priority: High Code(s): R04.2 - HEMOPTYSIS SNOMED Code(s): 50680653 (3) Adenocarcinoma of lung Current Visit: Yes Status: Acute Priority: High Code(s): C34.90 - MALIGNANT NEOPLASM OF UNSP PART OF UNSP BRONCHUS OR LUNG SNOMED Code(s): 748433889 Plan: Abdominal pain -Patient has been complaining of persistent and progressive abdominal pain for the last several weeks. CT of the abdomen is showing ascites, thickening of the small bowel, questioning enteritis, pretty significant fecal retention. KUB showing a large stool burden. -Patient has received multiple cathartics, those are to continue. Surgery has seen pt. NG tube placed for decompression -No ascites on US abd Hemoptysis -Hemoptysis started about 2 weeks ago, she notes more after updrafts next. -Pulmonary following. Pending Pulmonary assessment and recommendations. Agree with holding eliquis Metastatic non-small cell lung cancer -Diagnosis and treatment as stated in consult. -Recent concerns for disease progression. There were orders for scans. Will wait until acute condition managed. Pain, abd and back -Cont fentanyl. -norco freq adjusted, pt seems to be doing ok on the same -Numerous meds for constipation ordered
--- NOTE | 2024-11-14 18:35 | P.PN ---
Subjective Progress Note Date: 11/14/24 Hospital course: Patient is a 59-year-old female with PMH of stage IV lung cancer managed by Dr. Camacho, COPD, GERD, hyperlipidemia, pulmonary embolism on Eliquis presents to the ER with a complaint of shortness of breath and hemoptysis that started 2 days ago. Patient describes she has been numerous episodes of hemoptysis for last 2 days associated with passing of small blood clots. Patient is also endorsing diffuse abdominal pain which states is 7 out of 10 but exacerbated with palpitation. Denies any blood in stool. She has also been endorsing nausea which has resulted in a poor appetite and has not been able to tolerate solid food for the last couple of days. Patient states that she is on Eliquis for 3 years after the episodes of pulmonary embolism. Patient denies any similar episodes of hemoptysis in the past. Patient states that she is currently being managed by Dr. Castillo at [facility]. She is due to start immunotherapy. Patient has had recurrent pleural effusions and has lost ~25 pounds over the last 3 months and has been feeling fatigue. Denies any dysphagia. Family history significant for lung cancer cancer in his 60s. At the time of interview, patient states that she is feeling much better and her nausea and vomiting are controlled. ROS: Patient is also complaining of constipation last 2 days. Patient is also endorsing heartburn and epigastric region. Patient denies any chest pain, fever, chills, weakness and numbness in upper and lower extremities. Laboratory data: WBC 11.6, hemoglobin 10.1, hematocrit 32.0, platelet count 453, PT 12.1, INR 1.0, APTT 21.6, sodium 131, potassium 4.1, chloride 91, bicarb 27, BUN 22, creatinine 0.8, magnesium 1.9, calcium 9.3, AST 30, ALT 17, troponin one 0.019, viral serologies negative. Images: Chest x-ray independently interpreted shows small right pleural effusion associated with atelectasis and some hazy appearance in the right upper lung KUB interpreted independently shows large stool burden otherwise there is no evidence for acute process. EKG interpreted independently shows sinus tachycardia. QRS duration is normal 84 ms. FL interval is normal 124 ms. Poor R wave progression noted. Vitals: Tmax 97.9 F, pulse rate 123, respiration 18, blood pressure 120/73, oxygen saturation 96.0 room air. Pertinent positives and negatives as discussed above, a complete review of systems was performed and all other systems are negative. Subjective: 11/12/2024: Patient seen and evaluated bedside. Patient reports vomiting last night, multiple episodes. She denies any blood in her vomit. Still coughing up blood, clot like quarter size. Has not had a bowel movement this morning. 11/13/2024: Patient seen evaluated bedside. Patient reports stool yesterday a fter suppository, but has not had a stool since. Still complaining of abdominal pain. Reports that hemoptysis has decreased. Patient denies vomiting. 11/14/2024: Patient seen evaluated. Reports of multiple loose bowel movements. Complaining of abdominal cramping and shortness of breath. Vitals: Signs Reviewed Physical Exam: General: nontoxic, no distress, appears at stated age Derm: warm, dry, intact Head: atraumatic, normocephalic, symmetric Eyes: EOMI, anicteric sclera Mouth: no lip lesion, mucus membranes moist Cardiovascular: S1 S2 reg, no murmur, rubs, or gallops Lungs: CTA bilateral, no rhonchi, no rales, no accessory muscle use Abdominal: soft, tender to palpataion, no appreciable organomegaly Extremities: no gross muscle atrophy, no edema, no contractures Neuro: Alert, Oriented, CNII-XII grossly intact, gait normal Psych: well appearing, appropriate affect Data Received Today: Pertinent Labs: Hgb 8.2, potassium 3.3, CO2 32 Imaging: CXR independently interpreted displaying right moderate pleural effusion, NG tube tip within LUQ Assessment and Plan: This is a 59-year-old female with PMH of stage IV lung cancer metastatic is currently being hospitalized for intractable nausea and vomiting the last couple of days associated with hemoptysis and overall generalized weakness. Active: #Intractable nausea and vomiting in the setting of constipation and Stage 4 lung cancer History of stage IV lung cancer KUB shows large stool burden Colace 100 mg p.o. twice daily MiraLAX 30 mg p.o. once stat given in the ER Continue with Zofran 4 mg IVP every 4 hours as needed Senokot 8.6 mg p.o. twice daily Continue on home fentanyl patch next General Surgery consulted note read. Continue NG tube for decompression, keep patient NPO, discontinue lactulose #Hemoptysis, resolved #Possible postobstructive pneumonia #Non-small cell lung cancer #Normocytic anemia, at baseline Hold Eliquis, per pulmonology Chest x-ray displayed moderate right pleural effusion - Hemoglobin stable, continue to monitor Pulmonology following, no plans for bronchoscopy Continue Augmentin 875-125 mg PO q12hr per pulmonology Oncology following # Bilateral lower extremity swelling More pronounced on left lower left extremity Bilateral venous Doppler duplex ordered # Hypokalemia Potassium chloride 40 mEq p.o. once #GERD Protonix 40 mg IV daily, clear liquid diet for now; switch Protonix to oral once tolerated #. Sinus tachycardia Likely in the setting of intractable vomiting hypovolemia and pain Chronic: # COPD, not in exacerbation Continue with home breathing treatment O2 saturation 95% on room air Resolved: Leukocytosis Hypovolemic hyponatremia Hypoglycemia F: Normal saline at 75 cc/HR E: Replete as needed N: NPO A: Ambulates independently DVT ppx: SCDs Code status: Full code Anticipated discharge place: Pending clinical course Anticipated discharge time: Pending clinical Josh Amin MD PGY-1 IM Dictation was produced using [employer] dictation software. please excuse any grammatical, word or spelling errors. I saw and evaluated the patient during the jimenez and critical portions of this encounter, and discussed the case in detail with the resident author of this note, I agree with the Assessment and Plan, and my changes, if any, are hi ghlighted in blue. Objective - Vital Signs Vital signs: Vital Signs Temp 97.4 F L 11/14/24 01:17 Pulse 115 H 11/14/24 01:17 Resp 16 11/14/24 01:17 BP 130/76 11/14/24 01:17 Pulse Ox 96 11/14/24 01:17 FiO2 Intake & Output 11/13/24 11/14/24 11/14/24 18:59 06:59 18:59 Intake Total 1800 1190 Output Total 500 500 Balance 1300 690 Intake: Intake, IV Titration 1800 750 Amount Sodium Chloride 0.9% 1, 1800 750 000 ml @ 75 mls/hr IV . [id number] [facility] Rx#:[id number] Oral 440 Output: Gastric Drainage 500 500 Other: # Voids 1 # Bowel Movements 1 2 - Labs CBC & Chem 7: 11/14/24 06:36 11/14/24 06:36 Labs: Abnormal Lab Results - Last 24 Hours (Table) 11/14/24 11/14/24 Range/Units 06:36 06:36 RBC 2.98 L (3.80-5.40) m/uL Hgb 8.2 L (11.4-16.0) gm/dL Hct 26.6 L (34.0-46.0) % MCHC 30.7 L (31.0-37.0) g/dL RDW 17.5 H (11.5-15.5) % Potassium 3.3 L (3.5-5.1) mmol/L Carbon Dioxide 32 H (22-30) mmol/L
[2024-11-14] MEDS: LIDOCAINE 4% PATCH TOPICAL PRN (20:06)
--- NOTE | 2024-11-14 21:08 | US ---
EXAMINATION TYPE: US venous doppler duplex LE BI DATE OF EXAM: 11/14/2024 3:58 PM Exam done portable COMPARISON: US 2021 CLINICAL INDICATION: Female, 59 years old with history of swelling; , Pain TECHNIQUE: The lower extremity deep venous system is examined utilizing real time linear array sonog piper with graded compression, color doppler sonography, and spectral doppler. SIDE PERFORMED: Bilateral FINDINGS: VESSELS IMAGED: Common Femoral Vein Deep Femoral Vein Greater Saphenous Vein * Femoral Vein Popliteal Vein Small Saphenous Vein * Proximal Calf Veins (* superficial vessels) Right Leg: Appears negative for DVT Left Leg: Appears negative for DVT IMPRESSION: 1. Bilateral lower extremity ultrasound negative for deep venous thrombosis. [facility], , 11/14/2024 9:06 PM
[2024-11-15 09:28] LABS: Anisocytosis Slight; Basophils % (A) 0 %; Eosinophils # (A) 0.1 k/uL (0-0.7); Eosinophils % (A) 1 %; HCT 32.5 % (34.0-46.0); HGB 9.1 gm/dL (11.4-16.0); Hypochromasia Marked; Lymphocytes # (A) 1.7 k/uL (1.0-4.8); Lymphocytes % (A) 21 %; MCH 25.8 pg (25.0-35.0); MCHC 28.1 g/dL (31.0-37.0); MCV 91.8 fL (80.0-100.0); Mean Platelet Volume 7.9; Monocytes # (A) 0.4 k/uL (0-1.0); Monocytes % (A) 5 %; Neutrophils % (A) 73 %; Platelet Count 556 k/uL (150-450); RBC 3.53 m/uL (3.80-5.40); RDW 17.5 % (11.5-15.5); WBC 8.3 k/uL (3.8-10.6)
[2024-11-15 09:44] LABS: African American GFR (CKD) >90 (>60 ml/min/1.73 sqM); Anion Gap 11 mmol/L; Blood Urea Nitrogen 8 mg/dL (7-17); Carbon Dioxide 25 mmol/L (22-30); Chloride 103 mmol/L (98-107); Glucose 60 mg/dL (74-99); Magnesium 1.8 mg/dL (1.6-2.3); Non-African American GFR(CKD) >90 (>60 ml/min/1.73 sqM); Potassium 3.1 mmol/L (3.5-5.1); Sodium 139 mmol/L (137-145)
[2024-11-15] MEDS: POTASSIUM CHLORIDE ER 20 MEQ TAB.ER PO STA (10:47)
--- NOTE | 2024-11-15 12:53 | P.PN ---
Subjective Progress Note Date: 11/15/24 Hospital course: Patient is a 59-year-old female with PMH of stage IV lung cancer managed by Dr. Camacho, COPD, GERD, hyperlipidemia, pulmonary embolism on Eliquis presents to the ER with a complaint of shortness of breath and hemoptysis that started 2 days ago. Patient describes she has been numerous episodes of hemoptysis for last 2 days associated with passing of small blood clots. Patient is also endorsing diffuse abdominal pain which states is 7 out of 10 but exacerbated with palpitation. Denies any blood in stool. She has also been endorsing nausea which has resulted in a poor appetite and has not been able to tolerate solid food for the last couple of days. Patient states that she is on Eliquis for 3 years after the episodes of pulmonary embolism. Patient denies any similar episodes of hemoptysis in the past. Patient states that she is currently being managed by Dr. Castillo at [facility]. She is due to start immunotherapy. Patient has had recurrent pleural effusions and has lost ~25 pounds over the last 3 months and has been feeling fatigue. Denies any dysphagia. Family history significant for lung cancer cancer in his 60s. At the time of interview, patient states that she is feeling much better and her nausea and vomiting are controlled. ROS: Patient is also complaining of constipation last 2 days. Patient is also endorsing heartburn and epigastric region. Patient denies any chest pain, fever, chills, weakness and numbness in upper and lower extremities. Laboratory data: WBC 11.6, hemoglobin 10.1, hematocrit 32.0, platelet count 453, PT 12.1, INR 1.0, APTT 21.6, sodium 131, potassium 4.1, chloride 91, bicarb 27, BUN 22, creatinine 0.8, magnesium 1.9, calcium 9.3, AST 30, ALT 17, troponin one 0.019, viral serologies negative. Images: Chest x-ray independently interpreted shows small right pleural effusion associated with atelectasis and some hazy appearance in the right upper lung KUB interpreted independently shows large stool burden otherwise there is no evidence for acute process. EKG interpreted independently shows sinus tachycardia. QRS duration is normal 84 ms. [place] interval is normal 124 ms. Poor R wave progression noted. Vitals: Tmax 97.9 F, pulse rate 123, respiration 18, blood pressure 120/73, oxygen saturation 96.0 room air. Pertinent positives and negatives as discussed above, a complete review of systems was performed and all other systems are negative. Subjective: 11/12/2024: Patient seen and evaluated bedside. Patient reports vomiting last night, multiple episodes. She denies any blood in her vomit. Still coughing up blood, clot like quarter size. Has not had a bowel movement this morning. 11/13/2024: Patient seen evaluated bedside. Patient reports stool yesterday after suppository, but has not had a stool since. Still complaining of abdominal pain. Reports that hemoptysis has decreased. Patient denies vomiting. 11/14/2024: Patient seen evaluated. Reports of multiple loose bowel movements. Complaining of abdominal cramping and shortness of breath. 11/15/2024: Patient seen and evaluated. Report of multiple loose bowel movements this morning. States she feels better after being off the lactulose. Denies hemoptysis. Vitals: Signs Reviewed Physical Exam: General: nontoxic, no distress, appears at stated age Derm: warm, dry, intact Head: atraumatic, normocephalic, symmetric Eyes: EOMI, anicteric sclera Mouth: no lip lesion, mucus membranes moist Cardiovascular: S1 S2 reg, no murmur, rubs, or gallops Lungs: CTA bilateral, no rhonchi, no rales, no accessory muscle use Abdominal: soft, tender to palpataion, no appreciable organomegaly Extremities: no gross muscle atrophy, no edema, no contractures Neuro: Alert, Oriented, CNII-XII grossly intact, gait normal Psych: well appearing, appropriate affect Data Received Today: Pertinent Labs: Hgb 9.1, platelet 556, potassium 3.1, glucose 60 Imaging: N/A Assessment and Plan: This is a 59-year-old female with PMH of stage IV lung cancer metastatic is currently being hospitalized for intractable nausea and vomiting the last couple of days associated with hemoptysis and overall generalized weakness. Active: #Intractable nausea and vomiting in the setting of constipation and Stage 4 lung cancer History of stage IV lung cancer KUB shows large stool burden Constipation and mild wall thickening of small bowel in the pelvis noted on CT scan MiraLAX 30 mg p.o. once stat given in the ER Continue with Zofran 4 mg IVP every 4 hours as needed Senokot 8.6 mg p.o. twice daily changed to once a day Colace 100 mg p.o. discontinued Continue on home fentanyl patch NG tube removed Advance diet to clear liquid and monitor tolerance General Surgery following #Possible postobstructive pneumonia #Non-small cell lung cancer #Normocytic anemia, at baseline Chest x-ray displayed moderate right pleural effusion - Hemoglobin stable, continue to monitor Pulmonology following, no plans for bronchoscopy Continue Augmentin 875-125 mg PO q12hr per pulmonology Patient reports no hemoptysis, can resume Eliquis 5 mg p.o. twice daily Oncology following # Bilateral lower extremity swelling More pronounced on left lower left extremity Bilateral venous Doppler duplex ordered Bilateral lower extremity venous Doppler displaying no signs of Eliquis 5 mg p.o. twice daily resumed # Hypokalemia Potassium 3.1 Potassium chloride 40 mEq p.o. once #GERD Protonix 40 mg IV daily, clear liquid diet for now; switch Protonix to oral once tolerated #. Sinus tachycardia Likely in the setting of intractable vomiting hypovolemia and pain #. Hypoglycemia Glucose 60 Advancing her diet to clear liquid Hypoglycemic precautions Chronic: # COPD, not in exacerbation Continue with home breathing treatment O2 saturation 95% on room air Resolved: Leukocytosis Hypovolemic hyponatremia Hemoptysis F: Normal saline at 75 cc/HR E: Replete as needed N: NPO A: Ambulates independently DVT ppx: SCDs Code status: Full code Anticipated discharge place: Pending clinical course Anticipated discharge time: Pending clinical Josh Amin MD PGY-1 IM I have seen and evaluated the patient today. Discussed with the resident and agree with the residents finding and plan as documented in the resident's note. Changes highlighted in blue font. Objective - Vital Signs Vital signs: Vital Signs Temp 98.0 F 11/15/24 06:55 Pulse 109 H 11/15/24 07:33 Resp 18 11/15/24 06:55 BP 118/64 11/15/24 06:55 Pulse Ox 95 11/15/24 07:33 FiO2 Intake & Output 11/14/24 11/15/24 11/15/24 18:59 06:59 18:59 Intake Total 900 825 Output Total 600 Balance 900 225 Intake: Intake, IV Titration 900 825 Amount Sodium Chloride 0.9% 1, 900 825 000 ml @ 75 mls/hr IV . [id number] Rx#:[id number] Output: Gastric Drainage 600 Other: Voiding Method Bedside Commode # Voids 2 3 # Bowel Movements 5 1 - Labs CBC & Chem 7: 11/15/24 08:50 11/15/24 08:50
--- NOTE | 2024-11-15 13:54 | P.PN ---
Subjective Progress Note Date: 11/15/24 Patient is a 59-year-old female with past medical history significant for metastatic non-small cell lung cancer, COPD, and PE anticoagulated on Eliquis. Her primary care provider is Dr. Foster. Her crop scout is Dr. Adams. Non- small cell lung cancer originally diagnosed back in 2019. she has had bilateral lung wedge resections; of the left upper lobe in October 2019, as well as, right lower lung resection in Feb, 2021. A follow-up PET scan in February 2023 indicating possible disease recurrence. 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 Her established oncologist is Dr. Castillo. Previously maintained on chemotherapy with Alimta and cisplatin. Most recent available PET scan taken on 07/25/2024 showing overall mixed response to therapy with slightly increased radiotracer activity throughout the right pleural and anterior right seventh rib with mild decrease in radiotracer activity within the right 10th rib and posterior costophrenic pleural region. Development of nonspecific left anterior peritoneal stranding changes with mild FDG uptake, could represent early peritoneal metastasis versus other etiologies such as infectious/inflammatory nature. She was then started on Opdivo treatments, which are currently on hold. Believes her last treatment w as in September,. Patient presented to emergency department yesterday evening with a chief comp laint of hemoptysis. She is being evaluated in the ED, room 23. She has been coughing up small dime size to quarter size clots. She states this is an been ongoing over the weekend. Estimates total amount in 24 hours less than a medicine cup. She takes Eliquis for previous history PE. She has not missed any doses. She denies any chest pain, lightheadedness, syncopal events. Denies any infectious-like symptoms such as fever, chills, apparent sputum production. She is on room air oxygen with an SpO2 of 96% on bedside monitor. No respiratory distress. Chest x-ray is relatively unchanged with near complete opacification of the right lung and volume loss. Recent CT of the chest with contrast done 11/07/2024 demonstrates ongoing volume loss and extensive pleural/parenchymal opacities throughout the right hemithorax. Pleural rind at the lower lung increased compared to 202. Confluent lower lung opacities have also increased compared to 2023, but show improvement from recent 10/19/2024 study. Few subcentimeter pulmonary nodules on the left, concerning for metastatic disease. Complex ascites fluid partially visualized in the upper abdomen scalloping the left liver lobe and surrounding some upper abdominal bowel loops. Concerning for disease progression. She has also been complaining of intractable nausea and vomiting. Reports yellow to brown emesis. Which started approximately 2 days ago. Denies any hematemesis. Denies any hematochezia or melena. Her last normal bowel movement was 3 days ago. She cannot keep any food or water down. Some associated non- localized abdominal pain. She feels constipated, and frequently takes narcotics on an outpatient basis. Abdomen is distended and generally tender to palpation. Pain rated 8 on a 10 point numerical scale. Normal sinus infusing at 75 mL/h. CBC: WBC count 11.6, hemoglobin 10.1, platelets 453. CMP: Sodium 131, potassium 4.1, chloride 91, serum bicarb 27, BUN 22, creatinine 0.8, glucose 79. LFTs unremarkable. Total bilirubin 0.4. Troponin 0.019. EKG: Sinus tachycardia, rate 116 bpm, right axis deviation, no obvious acute ischemic changes. Viral screen negative for influenza, RSV, COVID. Current most recent vitals: afebrile, heart rate 109 bpm, blood pressure 131/81 mmHg, nontachypneic, SpO2 is 95% on room air oxygen. The patient is seen today November 13, 2024 in follow-up on the regular medical floor. She is currently sitting up in bed. Awake and alert in no acute distress. Denies any worsening shortness of breath, cough or congestion. She has just had very scant amount of blood-tinged sputum in the past 24 hours. She is maintaining O2 saturation in the 90s on room air. Her Eliquis remains on hold. Her abdominal discomfort is subsiding. She did receive laxatives with some improvement in bowel function. Chest x-ray shows moderate right pleural effusion. Minimal left costophrenic angle pleural effusion. Unchanged. White count 8.9. Hemoglobin 9.1. Platelets 500,000. Sodium 137. Potassium 3.8. Bicarb 24. BUN 15. Creatinine 0.64. Glucose 82. She is continued on May mentin. Remains on DuoNeb inhalations, Symbicort. Pain control with [place]. She is on Senokot, lactulose, Colace, Dulcolax suppository. 0.9 normal saline at 75 mL/h. Nasogastric tube in place. Nothing by mouth. The patient is seen today November 14, 2024 in follow-up on the regular medical floor. She is awake and alert in no acute distress. Maintaining O2 saturations in the mid 90s on room air. Afebrile. Hemodynamically stable. No further episodes of hemoptysis.. Eliquis remains on hold. She was having continued issues with constipation and abdominal distention. A nasogastric tube was placed surgical recommendations. Moderate right pleural effusion. Minimal left costophrenic angle pleural effusion. Nasogastric tube within the left upper quadrant of the abdomen. White count 7.1. Hemoglobin 8.2. Platelets 428. Sodium 138. Potassium 3.3. Bicarb 32. BUN 11. Creatinine 0.54. Glucose 74. Continued on bronchodilators. Receiving laxatives. Having bowel movements. The patient is seen today November 15, 2024 in follow-up on the regular medical floor. She is currently resting fairly comfortably in bed. Awake and alert in no acute distress. Maintaining O2 saturations in the 90s on room air. She is having bowel movements. Her abdominal pain is diminished. Her nasogastric tube has been removed. Dopplers of the lower extremities revealed no evidence of DVT. White count 8.3. Hemoglobin 9.1. Platelets 556. Sodium 139. Potassium 3.1. Bicarb 25. BUN 8. Creatinine 0.52. She remains on DuoNeb inhalations, Symbicort. Antibiotics in the form of Augmentin. Anticoagulated with Eliquis. Pain is adequately controlled. Objective - Vital Signs Vital signs: Vital Signs Temp 98.6 F 11/15/24 12:32 Pulse 123 H 11/15/24 12:32 Resp 22 11/15/24 12:32 BP 128/81 11/15/24 12:32 Pulse Ox 90 L 11/15/24 12:32 FiO2 Intake & Output 11/14/24 11/15/24 11/15/24 18:59 06:59 18:59 Intake Total 900 825 Output Total 600 Balance 900 225 Intake: Intake, IV Titration 900 825 Amount Sodium Chloride 0.9% 1, 900 825 000 ml @ 75 mls/hr IV . [id number] [facility] Rx#:[id number] Output: Gastric Drainage 600 Other: Voiding Method Bedside Commode Bedside Commode # Voids 2 3 # Bowel Movements 5 1 - Exam GENERAL EXAM: Alert, 59-year-old female, on room air, resting comfortably in bed, in no apparent distress. HEAD: Normocephalic. EYES: Normal reaction of pupils, equal size. NOSE: Clear with pink turbinates. THROAT: No erythema or exudates. NECK: No masses, no JVD. CHEST: No chest wall deformity. LUNGS: Equal air entry with crackles, breath sounds over the right lung. CVS: S1 and S2 normal with no audible murmur, regular rhythm. ABDOMEN: No hepatosplenomegaly, normal bowel sounds, no guarding or rigidity. SPINE: No scoliosis or deformity SKIN: No rashes CENTRAL NERVOUS SYSTEM: No focal deficits, tone is normal in all 4 extremities. EXTREMITIES: There is no peripheral edema. No clubbing, no cyanosis. Peripheral pulses are intact. - Labs CBC & Chem 7: 11/15/24 08:50 11/15/24 08:50 Labs: Abnormal Lab Results - Last 24 Hours (Table) 11/15/24 11/15/24 Range/Units 08:50 08:50 RBC 3.53 L (3.80-5.40) m/uL Hgb 9.1 L (11.4-16.0) gm/dL Hct 32.5 L (34.0-46.0) % MCHC 28.1 L (31.0-37.0) g/dL RDW 17.5 H (11.5-15.5) % Plt Count 556 H (150-450) k/uL Potassium 3.1 L (3.5-5.1) mmol/L Glucose 60 L (74-99) mg/dL Assessment and Plan Assessment: Small hemoptysis, estimated at less than 30 mL in 24-hour timeframe, continues to have intermittent episodes with clots. No further hemoptysis in the past 48 hours. Eliquis resumed Intractable nausea vomiting and abdominal pain. CT of the abdomen and pelvis shows abdominal ascites, mild wall thickening of small bowel in the pelvis correlate for enteritis, and moderate fecal retention concerning for constipation. Right lower lobe pleural thickening, volume loss, and likely atelectasis. Being addressed by surgery, nasogastric tube placed. Improved and subsequently removed Hypovolemic hyponatremia, secondary nausea, vomiting and reduced oral intake Recurrent metastatic non-small cell lung cancer Severe chronic obstructive pulmonary disease, FEV1 is 31% of predicted, stable Chronic pain, secondary to complications of malignancy Chronic hypoxemic respiratory failure, uses 2 L/min nasal cannula as needed at home Former tobacco smoker History of pulmonary embolism, chronically anticoagulated on Eliquis outpatient basis Chronic anemia, hemoglobin stable at 9.1 g/dL Plan: The patient was seen and evaluated Labs and medications reviewed No further hemoptysis Stable and on room air Eliquis resumed Nasogastric tube removed Increase activity as tolerated We will continue to follow I have personally seen and examined the patient, performed the documentation and the assessment and plan as written. Number of minutes spent on the visit: 10 Dictation was produced using [employer] dictation software. Please excuse any grammatical, word or spelling errors.
[2024-11-15 14:02] VITALS: BMI 20.6
--- NOTE | 2024-11-15 18:29 | P.PN ---
Subjective Progress Note Date: 11/15/24 At todays visit, pt reporting improvement in pain. Has had multiple BMs. Hemoptysis has resolved. Counts stable Objective - Vital Signs Vital signs: Vital Signs Temp 98.6 F 11/15/24 12:32 Pulse 123 H 11/15/24 12:32 Resp 22 11/15/24 12:32 BP 128/81 11/15/24 12:32 Pulse Ox 90 L 11/15/24 12:32 FiO2 Intake & Output 11/14/24 11/15/24 11/15/24 18:59 06:59 18:59 Intake Total 900 825 Output Total 600 Balance 900 225 Intake: Intake, IV Titration 900 825 Amount Sodium Chloride 0.9% 1, 900 825 000 ml @ 75 mls/hr IV . [id number] [facility] Rx#:[id number] Output: Gastric Drainage 600 Other: Voiding Method Bedside Commode Bedside Commode # Voids 2 3 # Bowel Movements 5 1 - Constitutional General appearance: Present: average body habitus, no acute distress - EENT Eyes: Present: anicteric sclerae, EOMI ENT: Present: hearing grossly normal - Respiratory Details: breathing is even and unlabored - Cardiovascular Details: skin warm and dry - Gastrointestinal General gastrointestinal: Absent: tenderness - Integumentary Integumentary: Absent: cyanotic, jaundiced - Psychiatric Psychiatric: Present: A&O x's 3 - Labs CBC & Chem 7: 11/15/24 08:50 11/15/24 08:50 Labs: Abnormal Lab Results - Last 24 Hours (Table) 11/15/24 11/15/24 Range/Units 08:50 08:50 RBC 3.53 L (3.80-5.40) m/uL Hgb 9.1 L (11.4-16.0) gm/dL Hct 32.5 L (34.0-46.0) % MCHC 28.1 L (31.0-37.0) g/dL RDW 17.5 H (11.5-15.5) % Plt Count 556 H (150-450) k/uL Potassium 3.1 L (3.5-5.1) mmol/L Glucose 60 L (74-99) mg/dL - Imaging and Cardiology CT scan - abdomen: report reviewed CT scan - chest: report reviewed CT scan - pelvis: report reviewed Assessment and Plan (1) Abdominal pain Current Visit: Yes Status: Acute Priority: High Code(s): R10.9 - UNSPECIFIED ABDOMINAL PAIN SNOMED Code(s): 10657107 (2) Adenocarcinoma of lung Current Visit: Yes Status: Acute Priority: High Code(s): C34.90 - MALIGNANT NEOPLASM OF UNSP PART OF UNSP BRONCHUS OR LUNG SNOMED Code(s): 850808678 (3) Hemoptysis Current Visit: Yes Status: Acute Priority: High Code(s): R04.2 - HEMOPTYSIS SNOMED Code(s): 72302489 Plan: Abdominal pain -Patient has been complaining of persistent and progressive abdominal pain for the last several weeks. CT of the abdomen is showing ascites, thickening of the small bowel, questioning enteritis, pretty significant fecal retention. KUB showing a large stool burden. -Patient has received multiple cathartics. Has since had multiple BMs, reporting improvement in abd pain. NG tube removed -Surgery following Hemoptysis -Hemoptysis started about 2 weeks ago, she notes more after updrafts. -Pulmonary following. No plan for bronch at this time. -Hemoptysis has resolved. Eliquis has been restarted Metastatic non-small cell lung cancer -Diagnosis and treatment as stated in consult. -Recent concerns for disease progression. -Clinic f/u upon discharge to further discuss goals of cares and treatment recommendations Pain, abd and back -Cont fentanyl. -norco freq adjusted, pt having good pain control on current regimen -Bowel regimen in place Doctor attests: I performed a history and physical examination of this patient, developed impression and plan of care. Discussed with dictator. I agree with dictators note, documented as a scribe.
--- NOTE | 2024-11-15 18:56 | P.PN ---
Progress Note - Text Progress Note Date: 11/15/24 CHIEF COMPLAINT: Abdominal pain, shortness of breath and hemoptysis HISTORY OF PRESENT ILLNESS: No acute events overnight. Abdominal pain and distention improved. Patient is having bowel movements. PHYSICAL EXAM: VITAL SIGNS: Reviewed. GENERAL: Well-developed in no acute distress. ABDOMEN: Distended. Little softer today. Diffuse tenderness with palpation NEUROLOGIC: Alert and oriented. Cranial nerves II through XII grossly intact. ASSESSMENT: 1. Abdominal pain with abdominal distention and evidence of constipation and mild wall thickening of the small bowel in the pelvis noted on CAT scan 2. History of metastatic non-small cell lung cancer PLAN: -Advance to Regular Diet -AM labs -Continue to monitor bowel function Josue Garcia DO [facility] [phone]
[2024-11-15 20:14] LABS: Glucose,Whole Blood 142 mg/dL (70-110)
[2024-11-15] MEDS: APIXABAN 5 MG TAB PO SCH (21:20)
[2024-11-16 04:11] LABS: Anisocytosis Slight; Basophils % (A) 0 %; Eosinophils # (A) 0.1 k/uL (0-0.7); Eosinophils % (A) 1 %; HCT 29.6 % (34.0-46.0); HGB 8.6 gm/dL (11.4-16.0); Hypochromasia Marked; Lymphocytes # (A) 1.7 k/uL (1.0-4.8); Lymphocytes % (A) 22 %; MCH 26.2 pg (25.0-35.0); MCV 90.4 fL (80.0-100.0); Mean Platelet Volume 7.1; Monocytes # (A) 0.5 k/uL (0-1.0); Monocytes % (A) 6 %; Neutrophils # (A) 5.5 k/uL (1.3-7.7); Neutrophils % (A) 69 %; Platelet Count 476 k/uL (150-450); RBC 3.28 m/uL (3.80-5.40); RDW 17.5 % (11.5-15.5)
[2024-11-16 04:33] LABS: African American GFR (CKD) >90 (>60 ml/min/1.73 sqM); Anion Gap 3 mmol/L; Blood Urea Nitrogen 7 mg/dL (7-17); Calcium 8.4 mg/dL (8.4-10.2); Carbon Dioxide 29 mmol/L (22-30); Chloride 103 mmol/L (98-107); Glucose 85 mg/dL (74-99); Magnesium 1.7 mg/dL (1.6-2.3); Non-African American GFR(CKD) >90 (>60 ml/min/1.73 sqM); Potassium 3.2 mmol/L (3.5-5.1); Sodium 135 mmol/L (137-145)
[2024-11-16] MEDS: SIMETHICONE 80 MG CHEWABLE PO STA ×2 (05:11→12:18)
[2024-11-16] MEDS: SENNOSIDES 8.6 MG TAB PO SCH ×2 (08:56→20:53)
[2024-11-16] MEDS: POTASSIUM CHLORIDE ER 20 MEQ TAB.ER PO STA (08:56)
--- NOTE | 2024-11-16 11:41 | P.PN ---
Subjective Progress Note Date: 11/16/24 Patient is a 59-year-old female with past medical history significant for metastatic non-small cell lung cancer, COPD, and PE anticoagulated on Eliquis. Her primary care provider is Dr. Foster. Her retail special event associate is Dr. Adams. Non- small cell lung cancer originally diagnosed back in 2019. she has had bilateral lung wedge resections; of the left upper lobe in October 2019, as well as, right lower lung resection in Feb, 2021. A follow-up PET scan in February 2023 indicating possible disease recurrence. 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 Her established oncologist is Dr. Castillo. Previously maintained on chemotherapy with Alimta and cisplatin. Most recent available PET scan taken on 07/25/2024 showing overall mixed response to therapy with slightly increased radiotracer activity throughout the right pleural and anterior right seventh rib with mild decrease in radiotracer activity within the right 10th rib and posterior costophrenic pleural region. Development of nonspecific left anterior peritoneal stranding changes with mild FDG uptake, could represent early peritoneal metastasis versus other etiologies such as infectious/inflammatory nature. She was then started on Opdivo treatments, which are currently on hold. Believes her last treatment w as in September,. Patient presented to emergency department yesterday evening with a chief comp laint of hemoptysis. She is being evaluated in the ED, room 23. She has been coughing up small dime size to quarter size clots. She states this is an been ongoing over the weekend. Estimates total amount in 24 hours less than a medicine cup. She takes Eliquis for previous history PE. She has not missed any doses. She denies any chest pain, lightheadedness, syncopal events. Denies any infectious-like symptoms such as fever, chills, apparent sputum production. She is on room air oxygen with an SpO2 of 96% on bedside monitor. No respiratory distress. Chest x-ray is relatively unchanged with near complete opacification of the right lung and volume loss. Recent CT of the chest with contrast done 11/07/2024 demonstrates ongoing volume loss and extensive pleural/parenchymal opacities throughout the right hemithorax. Pleural rind at the lower lung increased compared to 202. Confluent lower lung opacities have also increased compared to 2023, but show improvement from recent 10/19/2024 study. Few subcentimeter pulmonary nodules on the left, concerning for metastatic disease. Complex ascites fluid partially visualized in the upper abdomen scalloping the left liver lobe and surrounding some upper abdominal bowel loops. Concerning for disease progression. She has also been complaining of intractable nausea and vomiting. Reports yellow to brown emesis. Which started approximately 2 days ago. Denies any hematemesis. Denies any hematochezia or melena. Her last normal bowel movement was 3 days ago. She cannot keep any food or water down. Some associated non- localized abdominal pain. She feels constipated, and frequently takes narcotics on an outpatient basis. Abdomen is distended and generally tender to palpation. Pain rated 8 on a 10 point numerical scale. Normal sinus infusing at 75 mL/h. CBC: WBC count 11.6, hemoglobin 10.1, platelets 453. CMP: Sodium 131, potassium 4.1, chloride 91, serum bicarb 27, BUN 22, creatinine 0.8, glucose 79. LFTs unremarkable. Total bilirubin 0.4. Troponin 0.019. EKG: Sinus tachycardia, rate 116 bpm, right axis deviation, no obvious acute ischemic changes. Viral screen negative for influenza, RSV, COVID. Current most recent vitals: afebrile, heart rate 109 bpm, blood pressure 131/81 mmHg, nontachypneic, SpO2 is 95% on room air oxygen. The patient is seen today November 13, 2024 in follow-up on the regular medical floor. She is currently sitting up in bed. Awake and alert in no acute distress. Denies any worsening shortness of breath, cough or congestion. She has just had very scant amount of blood-tinged sputum in the past 24 hours. She is maintaining O2 saturation in the 90s on room air. Her Eliquis remains on hold. Her abdominal discomfort is subsiding. She did receive laxatives with some improvement in bowel function. Chest x-ray shows moderate right pleural effusion. Minimal left costophrenic angle pleural effusion. Unchanged. White count 8.9. Hemoglobin 9.1. Platelets 500,000. Sodium 137. Potassium 3.8. Bicarb 24. BUN 15. Creatinine 0.64. Glucose 82. She is continued on May mentin. Remains on DuoNeb inhalations, Symbicort. Pain control with Freedom. She is on Senokot, lactulose, Colace, Dulcolax suppository. 0.9 normal saline at 75 mL/h. Nasogastric tube in place. Nothing by mouth. The patient is seen today November 14, 2024 in follow-up on the regular medical floor. She is awake and alert in no acute distress. Maintaining O2 saturations in the mid 90s on room air. Afebrile. Hemodynamically stable. No further episodes of hemoptysis.. Eliquis remains on hold. She was having continued issues with constipation and abdominal distention. A nasogastric tube was placed surgical recommendations. Moderate right pleural effusion. Minimal left costophrenic angle pleural effusion. Nasogastric tube within the left upper quadrant of the abdomen. White count 7.1. Hemoglobin 8.2. Platelets 428. Sodium 138. Potassium 3.3. Bicarb 32. BUN 11. Creatinine 0.54. Glucose 74. Continued on bronchodilators. Receiving laxatives. Having bowel movements. The patient is seen today November 15, 2024 in follow-up on the regular medical floor. She is currently resting fairly comfortably in bed. Awake and alert in no acute distress. Maintaining O2 saturations in the 90s on room air. She is having bowel movements. Her abdominal pain is diminished. Her nasogastric tube has been removed. Dopplers of the lower extremities revealed no evidence of DVT. White count 8.3. Hemoglobin 9.1. Platelets 556. Sodium 139. Potassium 3.1. Bicarb 25. BUN 8. Creatinine 0.52. She remains on DuoNeb inhalations, Symbicort. Antibiotics in the form of Augmentin. Anticoagulated with Eliquis. Pain is adequately controlled. The patient is seen today November 16, 2024 in follow-up on the regular medical floor. She is currently resting in bed. Awake and alert in no acute distress. Continues to maintain good O2 saturations in the 90s on room air. She is having some complaints of abdominal and gas pain today. She is having bowel movements. Her NG tube had been removed. She is continued on Augmentin. Continued on DuoNeb and elations, Symbicort, Mucinex. Her pain is being managed with Freedom. Fentanyl patch in place. Lidocaine patch in place. Normal saline at 75 mL/h. Anticoagulated with Eliquis. Objective - Vital Signs Vital signs: Vital Signs Temp 98.2 F 11/16/24 07:30 Pulse 112 H 11/16/24 11:13 Resp 16 11/16/24 07:30 BP 136/82 11/16/24 07:30 Pulse Ox 93 L 11/16/24 07:30 FiO2 Intake & Output 11/15/24 11/16/24 11/16/24 18:59 06:59 18:59 Intake Total 1260 Balance 1260 Weight 51.256 kg Intake: Intake, IV Titration 900 Amount Sodium Chloride 0.9% 1, 900 000 ml @ 75 mls/hr IV . [id number] [facility] Rx#:[id number] Oral 360 Other: Voiding Method Bedside Commode Bedside Commode Bedside Commode # Voids 4 1 - Exam GENERAL EXAM: Alert, 59-year-old female, on room air, in no apparent distress. HEAD: Normocephalic. EYES: Normal reaction of pupils, equal size. NOSE: Clear with pink turbinates. THROAT: No erythema or exudates. NECK: No masses, no JVD. CHEST: No chest wall deformity. LUNGS: Equal air entry with crackles, breath sounds over the right lung. CVS: S1 and S2 normal with no audible murmur, regular rhythm. ABDOMEN: No hepatosplenomegaly, normal bowel sounds, no guarding or rigidity. SPINE: No scoliosis or deformity SKIN: No rashes CENTRAL NERVOUS SYSTEM: No focal deficits, tone is normal in all 4 extremities. EXTREMITIES: There is no peripheral edema. No clubbing, no cyanosis. Peripheral pulses are intact. - Labs CBC & Chem 7: 11/16/24 03:59 11/16/24 03:59 Labs: Abnormal Lab Results - Last 24 Hours (Table) 11/15/24 11/16/24 11/16/24 Range/Units 20:12 03:59 03:59 RBC 3.28 L (3.80-5.40) m/uL Hgb 8.6 L (11.4-16.0) gm/dL Hct 29.6 L (34.0-46.0) % MCHC 29.0 L (31.0-37.0) g/dL RDW 17.5 H (11.5-15.5) % Plt Count 476 H (150-450) k/uL Sodium 135 L (137-145) mmol/L Potassium 3.2 L (3.5-5.1) mmol/L Creatinine 0.48 L (0.52-1.04) mg/dL POC Glucose (mg/dL) 142 H (70-110) mg/dL Assessment and Plan Assessment: Small hemoptysis, estimated at less than 30 mL in 24-hour timeframe, continues to have intermittent episodes with clots. No further hemoptysis in the past 48 hours. Eliquis resumed Intractable nausea vomiting and abdominal pain. CT of the abdomen and pelvis shows abdominal ascites, mild wall thickening of small bowel in the pelvis correlate for enteritis, and moderate fecal retention concerning for constipation. Right lower lobe pleural thickening, volume loss, and likely atelectasis. Being addressed by surgery, nasogastric tube placed. Improved and subsequently removed Hypovolemic hyponatremia, secondary nausea, vomiting and reduced oral intake Recurrent metastatic non-small cell lung cancer Severe chronic obstructive pulmonary disease, FEV1 is 31% of predicted, stable Chronic pain, secondary to complications of malignancy Chronic hypoxemic respiratory failure, uses 2 L/min nasal cannula as needed at home Former tobacco smoker History of pulmonary embolism, chronically anticoagulated on Eliquis outpatient basis Chronic anemia, hemoglobin stable at 9.1 g/dL Plan: The patient was seen and evaluated Labs and medications reviewed No further hemoptysis Stable and on room air Eliquis resumed Increase activity as tolerated We will continue to follow I have personally seen and examined the patient, performed the documentation and the assessment and plan as written. Number of minutes spent on the visit: 10 Dictation was produced using [employer] dictation software. Please excuse any gra mmatical, word or spelling errors.
--- NOTE | 2024-11-16 12:25 | P.PN ---
Subjective Progress Note Date: 11/16/24 Hospital course: Patient is a 59-year-old female with PMH of stage IV lung cancer managed by Dr. Camacho, COPD, GERD, hyperlipidemia, pulmonary embolism on Eliquis presents to the ER with a complaint of shortness of breath and hemoptysis that started 2 days ago. Patient describes she has been numerous episodes of hemoptysis for last 2 days associated with passing of small blood clots. Patient is also endorsing diffuse abdominal pain which states is 7 out of 10 but exacerbated with palpitation. Denies any blood in stool. She has also been endorsing nausea which has resulted in a poor appetite and has not been able to tolerate solid food for the last couple of days. Patient states that she is on Eliquis for 3 years after the episodes of pulmonary embolism. Patient denies any similar episodes of hemoptysis in the past. Patient states that she is currently being managed by Dr. Castillo at [facility]. She is due to start immunotherapy. Patient has had recurrent pleural effusions and has lost ~25 pounds over the last 3 months and has been feeling fatigue. Denies any dysphagia. Family history significant for lung cancer cancer in his 60s. At the time of interview, patient states that she is feeling much better and her nausea and vomiting are controlled. ROS: Patient is also complaining of constipation last 2 days. Patient is also endorsing heartburn and epigastric region. Patient denies any chest pain, fever, chills, weakness and numbness in upper and lower extremities. Laboratory data: WBC 11.6, hemoglobin 10.1, hematocrit 32.0, platelet count 453, PT 12.1, INR 1.0, APTT 21.6, sodium 131, potassium 4.1, chloride 91, bicarb 27, BUN 22, creatinine 0.8, magnesium 1.9, calcium 9.3, AST 30, ALT 17, troponin one 0.019, viral serologies negative. Images: Chest x-ray independently interpreted shows small right pleural effusion associated with atelectasis and some hazy appearance in the right upper lung KUB interpreted independently shows large stool burden otherwise there is no evidence for acute process. EKG interpreted independently shows sinus tachycardia. QRS duration is normal 84 ms. SD interval is normal 124 ms. Poor R wave progression noted. Vitals: Tmax 97.9 F, pulse rate 123, respiration 18, blood pressure 120/73, oxygen saturation 96.0 room air. Pertinent positives and negatives as discussed above, a complete review of systems was performed and all other systems are negative. Subjective: 11/12/2024: Patient seen and evaluated bedside. Patient reports vomiting last night, multiple episodes. She denies any blood in her vomit. Still coughing up blood, clot like quarter size. Has not had a bowel movement this morning. 11/13/2024: Patient seen evaluated bedside. Patient reports stool yesterday after suppository, but has not had a stool since. Still complaining of abdominal pain. Reports that hemoptysis has decreased. Patient denies vomiting. 11/14/2024: Patient seen evaluated. Reports of multiple loose bowel movements. Complaining of abdominal cramping and shortness of breath. 11/15/2024: Patient seen and evaluated. Report of multiple loose bowel movements this morning. States she feels better after being off the lactulose. Denies hemoptysis. 11/16/2024: Patient seen and evaluated bedside. She is currently on a regular diet and states pain and not being able to have a bowel movement after having dinner breakfast. Denies any vomiting, hemoptysis. Vitals: Signs Reviewed Physical Exam: General: nontoxic, no distress, appears at stated age Derm: warm, dry, intact Head: atraumatic, normocephalic, symmetric Eyes: EOMI, anicteric sclera Mouth: no lip lesion, mucus membranes moist Cardiovascular: S1 S2 reg, no murmur, rubs, or gallops Lungs: CTA bilateral, no rhonchi, no rales, no accessory muscle use Abdominal: soft, tender to palpataion, no appreciable organomegaly Extremities: no gross muscle atrophy, no edema, no contractures Neuro: Alert, Oriented, CNII-XII grossly intact, gait normal Psych: well appearing, appropriate affect Data Received Today: Pertinent Labs: Hgb 8.6, sodium 135, potassium 3.2, glucose 85 Imaging: N/A Assessment and Plan: This is a 59-year-old female with PMH of stage IV lung cancer metastatic is currently being hospitalized for intractable nausea and vomiting the last couple of days associated with hemoptysis and overall generalized weakness. Active: #Intractable nausea and vomiting in the setting of constipation and Stage 4 lung cancer History of stage IV lung cancer KUB shows large stool burden Constipation and mild wall thickening of small bowel in the pelvis noted on CT scan MiraLAX 30 mg p.o. once stat given in the ER Continue with Zofran 4 mg IVP every 4 hours as needed Simethicone to 120 mg PO once today Continue on home fentanyl patch NG tube removed Diet advanced to regular diet by surgery General Surgery following Senna increased to twice daily #Possible postobstructive pneumonia #Non-small cell lung cancer #Normocytic anemia, at baseline Chest x-ray displayed moderate right pleural effusion - Hemoglobin stable, continue to monitor Pulmonology following, no plans for bronchoscopy Continue Augmentin 875-125 mg PO q12hr per pulmonology hemoptysis resolved, can resume Eliquis 5 mg p.o. twice daily Oncology following # Bilateral lower extremity swelling More pronounced on left lower left extremity Bilateral venous Doppler duplex ordered Bilateral lower extremity venous Doppler displaying no signs of Continue Eliquis 5 mg PO twice daily #. Mild hyponatremia Sodium 135 Patient asymptomatic Continue with fluid management # Hypokalemia Potassium 3.2 Potassium chloride 40 mEq p.o. once #GERD switching IV Protonix to oral Protonix 40 mg PO daily #. Sinus tachycardia Likely in the setting of intractable vomiting hypovolemia and pain Chronic: # COPD, not in exacerbation Continue with home breathing treatment O2 saturation 95% on room air Resolved: Leukocytosis Hypovolemic hyponatremia Hemoptysis Hypoglycemia: Maintain hypoglycemic precaution, encourage oral feeding F: Normal saline at 75 cc/HR E: Replete as needed N: Regular diet A: Ambulates independently DVT ppx: Eliquis 5 mg PO twice daily Code status: Full code Anticipated discharge place: Pending clinical course Anticipated discharge time: Pending clinical Josh Amin MD PGY-1 IM I have seen and evaluated the patient today. Discussed with the resident and agree with the residents finding and plan as documented in the resident's note. Changes highlighted in blue font. Objective - Vital Signs Vital signs: Vital Signs Temp 98.2 F 11/16/24 00:47 Pulse 107 H 11/16/24 00:47 Resp 16 11/16/24 00:47 BP 139/86 11/16/24 00:47 Pulse Ox 94 L 11/16/24 00:47 FiO2 Intake & Output 11/15/24 11/16/24 11/16/24 18:59 06:59 18:59 Intake Total 1260 Balance 1260 Weight 51.256 kg Intake: Intake, IV Titration 900 Amount Sodium Chloride 0.9% 1, 900 000 ml @ 75 mls/hr IV . [id number] [facility] Rx#:[id number] Oral 360 Other: Voiding Method Bedside Commode Bedside Commode # Voids 4 1 - Labs CBC & Chem 7: 11/16/24 03:59 11/16/24 03:59 Labs: Abnormal Lab Results - Last 24 Hours (Table) 11/15/24 11/15/24 11/15/24 Range/Units 08:50 08:50 20:12 RBC 3.53 L (3.80-5.40) m/uL Hgb 9.1 L (11.4-16.0) gm/dL Hct 32.5 L (34.0-46.0) % MCHC 28.1 L (31.0-37.0) g/dL RDW 17.5 H (11.5-15.5) % Plt Count 556 H (150-450) k/uL Sodium (137-145) mmol/L Potassium 3.1 L (3.5-5.1) mmol/L Creatinine (0.52-1.04) mg/dL Glucose 60 L (74-99) mg/dL POC Glucose (mg/dL) 142 H (70-110) mg/dL 11/16/24 11/16/24 Range/Units 03:59 03:59 RBC 3.28 L (3.80-5.40) m/uL Hgb 8.6 L (11.4-16.0) gm/dL Hct 29.6 L (34.0-46.0) % MCHC 29.0 L (31.0-37.0) g/dL RDW 17.5 H (11.5-15.5) % Plt Count 476 H (150-450) k/uL Sodium 135 L (137-145) mmol/L Potassium 3.2 L (3.5-5.1) mmol/L Creatinine 0.48 L (0.52-1.04) mg/dL Glucose (74-99) mg/dL POC Glucose (mg/dL) (70-110) mg/dL
--- NOTE | 2024-11-16 13:43 | P.PN ---
Progress Note - Text Progress Note Date: 11/16/24 CHIEF COMPLAINT: Abdominal pain, shortness of breath and hemoptysis HISTORY OF PRESENT ILLNESS: No acute events overnight. Patient having some abdominal pain and cramping. Having bowel movements. PHYSICAL EXAM: VITAL SIGNS: Reviewed. GENERAL: Well-developed in no acute distress. ABDOMEN: Distended. Little softer today. Diffuse tenderness with palpation NEUROLOGIC: Alert and oriented. Cranial nerves II through XII grossly intact. ASSESSMENT: 1. Abdominal pain with abdominal distention and evidence of constipation and mild wall thickening of the small bowel in the pelvis noted on CAT scan 2. History of metastatic non-small cell lung cancer PLAN: -Regular Diet -AM labs -Continue to monitor bowel function Josue Garcia DO [facility] [phone]
[2024-11-16] MEDS: PANTOPRAZOLE 40 MG TABLET PO SCH (17:54)
[2024-11-16] MEDS: SIMETHICONE 80 MG CHEWABLE PO PRN (20:48)
--- NOTE | 2024-11-16 23:04 | XR ---
EXAM: XR Chest, 1 View CLINICAL HISTORY: SOB TECHNIQUE: Frontal view of the chest. COMPARISON: 11/13/2024. FINDINGS: Patient is rotated to the right. NG tube has been removed. Right central line tip is in the SVC. Heart is enlarged. Unchanged right pleural effusion and atelectasis versus infiltrate throughout the right lung. Increased left basilar atelectasis versus infiltrate. No pneumothorax. Bones are unchanged. IMPRESSION: Increased left basilar atelectasis versus infiltrate. Status post removal of NG tube. Otherwise no change.
[2024-11-17] MEDS: FUROSEMIDE 10 MG/ML 10 ML VIAL IV STA (02:23)
[2024-11-17 03:38] LABS: African American GFR (CKD) >90 (>60 ml/min/1.73 sqM); Anion Gap 5 mmol/L; Blood Urea Nitrogen 7 mg/dL (7-17); Calcium 8.4 mg/dL (8.4-10.2); Carbon Dioxide 30 mmol/L (22-30); Chloride 99 mmol/L (98-107); Glucose 105 mg/dL (74-99); Magnesium 1.7 mg/dL (1.6-2.3); Non-African American GFR(CKD) >90 (>60 ml/min/1.73 sqM); Potassium 3.4 mmol/L (3.5-5.1); Sodium 134 mmol/L (137-145)
[2024-11-17 03:49] LABS: Anisocytosis Slight; Basophils % (A) 0 %; Eosinophils % (A) 0 %; HCT 31.9 % (34.0-46.0); HGB 9.1 gm/dL (11.4-16.0); Hypochromasia Marked; Lymphocytes # (A) 1.5 k/uL (1.0-4.8); Lymphocytes % (A) 14 %; MCH 25.5 pg (25.0-35.0); MCHC 28.5 g/dL (31.0-37.0); MCV 89.7 fL (80.0-100.0); Mean Platelet Volume 7.4; Monocytes # (A) 0.6 k/uL (0-1.0); Monocytes % (A) 5 %; Neutrophils # (A) 8.3 k/uL (1.3-7.7); Neutrophils % (A) 79 %; Platelet Count 510 k/uL (150-450); RBC 3.55 m/uL (3.80-5.40); RDW 17.4 % (11.5-15.5); WBC 10.6 k/uL (3.8-10.6)
[2024-11-17 07:57] VITALS: BP 132/85; RESP 16; TEMP 97.7
[2024-11-17] MEDS: POTASSIUM CHLORIDE ER 20 MEQ TAB.ER PO STA (09:15)
--- NOTE | 2024-11-17 10:50 | P.DS ---
Providers Date of admission: 11/11/24 20:01 Expected date of discharge: 11/17/24 Attending physician: Tonia Tatum MD Consults: 11/11/24 19:59 Consult Physician Routine Consulting Provider: Prince Castillo Consult Reason/Comments: Lung CA Do you want consulting provider notified?: Yes Consult Physician Routine Consulting Provider: Harrison Adams Consult Reason/Comments: lung CA, hemoptysis Do you want consulting provider notified?: Yes 11/13/24 08:35 Consult Physician Routine Consulting Provider: Chay Phillips Consult Reason/Comments: Abdominal pain Do you want consulting provider notified?: Yes Primary care physician: [facility] Course: Discharge Diagnosis: Severe opioid induced constipation Non-small cell lung cancer Intractable nausea vomiting Severe abdominal pain Normocytic anemia Mild hyponatremia Hypokalemia GERD COPD, not in exacerbation Chronic hypoxic respiratory failure Leukocytosis Hemoptysis Hospital Course: 59-year-old female with PMH of stage IV lung cancer managed by Dr. Camacho, COPD, GERD, hyperlipidemia, pulmonary embolism on Eliquis presents to the ER with a complaint of shortness of breath and hemoptysis that started 2 days ago. Patient describes she has been numerous episodes of hemoptysis for last 2 days associated with passing of small blood clots. Patient is also endorsing diffuse abdominal pain which states is 7 out of 10 but exacerbated with palpitation. WBC 11.6, hemoglobin 10.1, hematocrit 32.0, platelet count 453, PT 12.1, INR 1.0, APTT 21.6, sodium 131, potassium 4.1, chloride 91, bicarb 27, BUN 22, creatinine 0.8, magnesium 1.9, calcium 9.3, AST 30, ALT 17, troponin one 0.019, viral serologies negative. Chest x-ray shows small right pleural effusion associated with atelectasis and some hazy appearance in the right upper lung. KUB shows large stool burden otherwise there is no evidence for acute process. EKG shows sinus tachycardia. QRS duration is normal 84 ms. PA interval is normal 124 ms. Poor R wave progression noted. Vitals on arrival: Tmax 97.9 F, pulse rate 123, respiration 18, blood pressure 120/73, oxygen saturation 96.[address] abdomen pelvis showed constipation and mild bowel wall thickening at the small bowel level. Pulmonology, oncology, general surgery consulted. Hemoptysis resolved, Eliquis was resumed. No active bleeding. Patient started on bowel regimen, now having bowel movements. Follow-up outpatient with PCP, oncology, pulmonology and general surgery. Patient seen and examined at bedside. Vital signs reviewed and stable. General: Nontoxic, no distress, appears at stated age, chronically ill-appearing Derm: Warm, dry Head: Atraumatic, normocephalic, symmetric Eyes: EOMI, no lid lag, anicteric sclera Mouth: No lip lesion, mucus membranes moist Cardiovascular: S1S2 reg, no murmur Lungs: CTA bilateral, no rhonchi, no rales, no accessory muscle use, supplemental oxygen Abdominal: Soft, nontender to palpation, no guarding, no appreciable organomegaly Ext: No gross muscle atrophy, no edema, no contractures Neuro: CN II-XI grossly intact, no focal neuro deficits Psych: Alert, oriented, appropriate affect A total of 38 minutes of time were spent preparing this complex discharge summary. Patient was discharged on 11/17/2024 at 958. Patient Condition at Discharge: Stable Plan - Discharge Summary Discharge Rx Participant: Yes New Discharge Prescriptions: New Simethicone Chew [Mylicon Chew] 80 mg PO QID PRN #90 tab PRN Reason: Gi Upset Sennosides [Senokot] 8.6 mg PO BID #90 tab Continue Albuterol Inhaler [Ventolin Hfa Inhaler] 2 puff INHALATION RT-Q6H PRN PRN Reason: Shortness Of Breath Omeprazole Magnesium [PriLOSEC OTC] 20 mg PO BID Cetirizine HCl [Zyrtec] 10 mg PO DAILY Ipratropium-Albuterol Nebulize [Duoneb 0.5 mg-3 mg/3 ml Soln] 3 ml INHALATION RT-QID 30 Days #300 ml Apixaban [Eliquis] 5 mg PO BID 30 Days #60 tab Budesonide-Formot 160-4.5 Mcg [Symbicort 160-4.5 Mcg Inhaler] 2 puff INHALATION RT-BID Lidocaine/Menthol [Asperflex Max 4%-1% Patch] 1 patch TRANSDERM DAILY PRN PRN Reason: Pain HYDROcodone/APAP 10-325MG [[place] 10-325] 1 tab PO Q6HR PRN PRN Reason: Pain Gabapentin [Neurontin] 300 mg PO TID Ondansetron Odt [Zofran ODT] 8 mg PO Q6H PRN PRN Reason: Nausea Linaclotide [Linzess] 145 mcg PO DAILY PRN PRN Reason: IBS guaiFENesin [Mucinex] 600 mg PO Q12HR PRN #30 tab PRN Reason: Cough fentaNYL 50MCG/HR PATCH [Duragesic 50MCG/HR] 1 patch TRANSDERM Q72H patch Discontinued Sennosides/Docusate Sodium [Senna Plus 8.6-50 mg Softgel] 1 cap PO BID PRN PRN Reason: Constipation Discharge Medication List Albuterol Inhaler [Ventolin Hfa Inhaler] 2 puff INHALATION RT-Q6H PRN 09/17/19 [History] Cetirizine HCl [Zyrtec] 10 mg PO DAILY 06/21/22 [History] Omeprazole Magnesium [PriLOSEC OTC] 20 mg PO BID 06/21/22 [History] Apixaban [Eliquis] 5 mg PO BID 30 Days #60 tab 06/24/22 [Rx] Ipratropium-Albuterol Nebulize [Duoneb 0.5 mg-3 mg/3 ml Soln] 3 ml INHALATION RT-QID 30 Days #300 ml 06/24/22 [Rx] Budesonide-Formot 160-4.5 Mcg [Symbicort 160-4.5 Mcg Inhaler] 2 puff INHALATION RT-BID 02/28/23 [History] Gabapentin [Neurontin] 300 mg PO TID 02/28/23 [History] HYDROcodone/APAP 10-325MG [[place] 10-325] 1 tab PO Q6HR PRN 01/05/24 [History] Lidocaine/Menthol [Asperflex Max 4%-1% Patch] 1 patch TRANSDERM DAILY PRN 01/05/24 [History] Linaclotide [Linzess] 145 mcg PO DAILY PRN 01/05/24 [History] Ondansetron Odt [Zofran ODT] 8 mg PO Q6H PRN 01/05/24 [History] guaiFENesin [Mucinex] 600 mg PO Q12HR PRN #30 tab 01/08/24 [Rx] fentaNYL 50MCG/HR PATCH [Duragesic 50MCG/HR] 1 patch TRANSDERM Q72H patch 10/20/24 [Rx] Sennosides [Senokot] 8.6 mg PO BID #90 tab 11/17/24 [Rx] Simethicone Chew [Mylicon Chew] 80 mg PO QID PRN #90 tab 11/17/24 [Rx] Follow up Appointment(s)/Referral(s): Josh Hargrove [STAFF PHYSICIAN] - 1 Week Rao Foster MD [Primary Care Provider] - 1-2 days Harrison Adams DO [Doctor of Osteopathic Medicine] - 1 Week Josue Garcia DO [Medical Doctor] - 1 Week Patient Instructions/Handouts: Constipation (DC) Activity/Diet/Wound Care/Special Instructions: Please see your oncologist, sales program coordinator, surgery and PCP. Discharge Disposition: HOME SELF-CARE
[2024-11-17 11:22] VITALS: PULSE 100
--- NOTE | 2024-11-17 11:56 | P.PN ---
Subjective Progress Note Date: 11/17/24 Patient is a 59-year-old female with past medical history significant for metastatic non-small cell lung cancer, COPD, and PE anticoagulated on Eliquis. Her primary care provider is Dr. Foster. Her affiliate marketing manager is Dr. Adams. Non- small cell lung cancer originally diagnosed back in 2019. she has had bilateral lung wedge resections; of the left upper lobe in October 2019, as well as, right lower lung resection in Feb, 2021. A follow-up PET scan in February 2023 indicating possible disease recurrence. 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 Her established oncologist is Dr. Castillo. Previously maintained on chemotherapy with Alimta and cisplatin. Most recent available PET scan taken on 07/25/2024 showing overall mixed response to therapy with slightly increased radiotracer activity throughout the right pleural and anterior right seventh rib with mild decrease in radiotracer activity within the right 10th rib and posterior costophrenic pleural region. Development of nonspecific left anterior peritoneal stranding changes with mild FDG uptake, could represent early peritoneal metastasis versus other etiologies such as infectious/inflammatory nature. She was then started on Opdivo treatments, which are currently on hold. Believes her last treatment w as in September,. Patient presented to emergency department yesterday evening with a chief comp laint of hemoptysis. She is being evaluated in the ED, room 23. She has been coughing up small dime size to quarter size clots. She states this is an been ongoing over the weekend. Estimates total amount in 24 hours less than a medicine cup. She takes Eliquis for previous history PE. She has not missed any doses. She denies any chest pain, lightheadedness, syncopal events. Denies any infectious-like symptoms such as fever, chills, apparent sputum production. She is on room air oxygen with an SpO2 of 96% on bedside monitor. No respiratory distress. Chest x-ray is relatively unchanged with near complete opacification of the right lung and volume loss. Recent CT of the chest with contrast done 11/07/2024 demonstrates ongoing volume loss and extensive pleural/parenchymal opacities throughout the right hemithorax. Pleural rind at the lower lung increased compared to 202. Confluent lower lung opacities have also increased compared to 2023, but show improvement from recent 10/19/2024 study. Few subcentimeter pulmonary nodules on the left, concerning for metastatic disease. Complex ascites fluid partially visualized in the upper abdomen scalloping the left liver lobe and surrounding some upper abdominal bowel loops. Concerning for disease progression. She has also been complaining of intractable nausea and vomiting. Reports yellow to brown emesis. Which started approximately 2 days ago. Denies any hematemesis. Denies any hematochezia or melena. Her last normal bowel movement was 3 days ago. She cannot keep any food or water down. Some associated non- localized abdominal pain. She feels constipated, and frequently takes narcotics on an outpatient basis. Abdomen is distended and generally tender to palpation. Pain rated 8 on a 10 point numerical scale. Normal sinus infusing at 75 mL/h. CBC: WBC count 11.6, hemoglobin 10.1, platelets 453. CMP: Sodium 131, potassium 4.1, chloride 91, serum bicarb 27, BUN 22, creatinine 0.8, glucose 79. LFTs unremarkable. Total bilirubin 0.4. Troponin 0.019. EKG: Sinus tachycardia, rate 116 bpm, right axis deviation, no obvious acute ischemic changes. Viral screen negative for influenza, RSV, COVID. Current most recent vitals: afebrile, heart rate 109 bpm, blood pressure 131/81 mmHg, nontachypneic, SpO2 is 95% on room air oxygen. The patient is seen today November 13, 2024 in follow-up on the regular medical floor. She is currently sitting up in bed. Awake and alert in no acute distress. Denies any worsening shortness of breath, cough or congestion. She has just had very scant amount of blood-tinged sputum in the past 24 hours. She is maintaining O2 saturation in the 90s on room air. Her Eliquis remains on hold. Her abdominal discomfort is subsiding. She did receive laxatives with some improvement in bowel function. Chest x-ray shows moderate right pleural effusion. Minimal left costophrenic angle pleural effusion. Unchanged. White count 8.9. Hemoglobin 9.1. Platelets 500,000. Sodium 137. Potassium 3.8. Bicarb 24. BUN 15. Creatinine 0.64. Glucose 82. She is continued on May mentin. Remains on DuoNeb inhalations, Symbicort. Pain control with [place]. She is on Senokot, lactulose, Colace, Dulcolax suppository. 0.9 normal saline at 75 mL/h. Nasogastric tube in place. Nothing by mouth. The patient is seen today November 14, 2024 in follow-up on the regular medical floor. She is awake and alert in no acute distress. Maintaining O2 saturations in the mid 90s on room air. Afebrile. Hemodynamically stable. No further episodes of hemoptysis.. Eliquis remains on hold. She was having continued issues with constipation and abdominal distention. A nasogastric tube was placed surgical recommendations. Moderate right pleural effusion. Minimal left costophrenic angle pleural effusion. Nasogastric tube within the left upper quadrant of the abdomen. White count 7.1. Hemoglobin 8.2. Platelets 428. Sodium 138. Potassium 3.3. Bicarb 32. BUN 11. Creatinine 0.54. Glucose 74. Continued on bronchodilators. Receiving laxatives. Having bowel movements. The patient is seen today November 15, 2024 in follow-up on the regular medical floor. She is currently resting fairly comfortably in bed. Awake and alert in no acute distress. Maintaining O2 saturations in the 90s on room air. She is having bowel movements. Her abdominal pain is diminished. Her nasogastric tube has been removed. Dopplers of the lower extremities revealed no evidence of DVT. White count 8.3. Hemoglobin 9.1. Platelets 556. Sodium 139. Potassium 3.1. Bicarb 25. BUN 8. Creatinine 0.52. She remains on DuoNeb inhalations, Symbicort. Antibiotics in the form of Augmentin. Anticoagulated with Eliquis. Pain is adequately controlled. The patient is seen today November 16, 2024 in follow-up on the regular medical floor. She is currently resting in bed. Awake and alert in no acute distress. Continues to maintain good O2 saturations in the 90s on room air. She is having some complaints of abdominal and gas pain today. She is having bowel movements. Her NG tube had been removed. She is continued on Augmentin. Continued on DuoNeb and elations, Symbicort, Mucinex. Her pain is being managed with [place]. Fentanyl patch in place. Lidocaine patch in place. Normal saline at 75 mL/h. Anticoagulated with Eliquis. The patient is seen today November 17, 2024 in follow-up on the regular medical floor. She is awake and alert in no acute distress. No shortness of breath, cough or congestion. She is having bowel movements. Abdomen is less distended. Less uncomfortable. He is maintaining O2 saturations up to 99% on 2 L/min per nasal cannula. She has been afebrile. Hemodynamically stable. Chest x-ray reveals chronic changes on the right lung. Count 10.6. Hemoglobin 9.1. Platelets 510. Sodium 134. Potassium 3.4. Bicarb 30. BUN 7. Creatinine 0.61. Glucose 105. Procalcitonin negative at 0.11. Júnior on DuoNeb and elations, Symbicort. Anticoagulated with Eliquis. No further hemoptysis this admission. Objective - Vital Signs Vital signs: Vital Signs Temp 97.7 F 11/17/24 07:26 Pulse 100 11/17/24 11:28 Resp 16 11/17/24 07:26 BP 132/85 11/17/24 07:26 Pulse Ox 99 11/17/24 07:26 FiO2 Intake & Output 11/16/24 11/17/24 11/17/24 18:59 06:59 18:59 Intake Total 1140 240 Balance 1140 240 Intake: Intake, IV Titration 900 Amount Sodium Chloride 0.9% 1, 900 000 ml @ 20 mls/hr IV . Q24H [facility] Rx#:[id number] Oral 240 240 Other: Voiding Method Bedside Commode Bedside Commode Bedside Commode # Voids 3 3 1 # Bowel Movements 1 - Exam GENERAL EXAM: Alert, 59-year-old female, resting comfortably in bed, on room air, in no apparent distress. HEAD: Normocephalic. EYES: Normal reaction of pupils, equal size. NOSE: Clear with pink turbinates. THROAT: No erythema or exudates. NECK: No masses, no JVD. CHEST: No chest wall deformity. LUNGS: Equal air entry with crackles, breath sounds over the right lung. CVS: S1 and S2 normal with no audible murmur, regular rhythm. ABDOMEN: No hepatosplenomegaly, normal bowel sounds, no guarding or rigidity. SPINE: No scoliosis or deformity SKIN: No rashes CENTRAL NERVOUS SYSTEM: No focal deficits, tone is normal in all 4 extremities. EXTREMITIES: There is no peripheral edema. No clubbing, no cyanosis. Peripheral pulses are intact. - Labs CBC & Chem 7: 11/17/24 02:41 11/17/24 02:41 Labs: Abnormal Lab Results - Last 24 Hours (Table) 11/17/24 11/17/24 Range/Units 02:41 02:41 RBC 3.55 L (3.80-5.40) m/uL Hgb 9.1 L (11.4-16.0) gm/dL Hct 31.9 L (34.0-46.0) % MCHC 28.5 L (31.0-37.0) g/dL RDW 17.4 H (11.5-15.5) % Plt Count 510 H (150-450) k/uL Neutrophils # 8.3 H (1.3-7.7) k/uL Sodium 134 L (137-145) mmol/L Potassium 3.4 L (3.5-5.1) mmol/L Glucose 105 H (74-99) mg/dL Assessment and Plan Assessment: Small hemoptysis, estimated at less than 30 mL in 24-hour timeframe, continues to have intermittent episodes with clots. No further hemoptysis in the past 48 hours. Eliquis resumed Intractable nausea vomiting and abdominal pain. CT of the abdomen and pelvis shows abdominal ascites, mild wall thickening of small bowel in the pelvis correlate for enteritis, and moderate fecal retention concerning for consti pation. Right lower lobe pleural thickening, volume loss, and likely atelectasis. Being addressed by surgery, nasogastric tube placed. Improved and subsequently removed Hypovolemic hyponatremia, secondary nausea, vomiting and reduced oral intake Recurrent metastatic non-small cell lung cancer Severe chronic obstructive pulmonary disease, FEV1 is 31% of predicted, stable Chronic pain, secondary to complications of malignancy Chronic hypoxemic respiratory failure, uses 2 L/min nasal cannula as needed at home Former tobacco smoker History of pulmonary embolism, chronically anticoagulated on Eliquis outpatient basis Chronic anemia, hemoglobin stable at 9.1 g/dL Plan: The patient was seen and evaluated Labs and medications reviewed No further hemoptysis Stable and on room air Eliquis resumed Stable for discharge from the pulmonary standpoint I have personally seen and examined the patient, performed the documentation and the assessment and plan as written. Number of minutes spent on the visit: 10 Dictation was produced using [email or web address] software. Please excuse any g rammatical, word or spelling errors.
== END 2024-11-17 12:03 | disposition home or self-care (01) | DRG 391 ==
LOC: EC 16:40 → 5NMEDONC 20:01
PROVIDERS: ADMIT Internal Medicine; ATTEND Internal Medicine
PROC: 0D9670Z Drainage of Stomach with Drainage Device, Via Natural or Artificial Opening (ICD-10-PCS; principal; 2024-11-13)
DX: K59.03 Drug induced constipation (principal); J18.8 Other pneumonia, unspecified organism; C34.90 Malignant neoplasm of unspecified part of unspecified bronchus or lung; E87.1 Hypo-osmolality and hyponatremia; J96.11 Chronic respiratory failure with hypoxia; R04.2 Hemoptysis; J90 Pleural effusion, not elsewhere classified; R18.8 Other ascites; J98.11 Atelectasis; J44.0 Chronic obstructive pulmonary disease with (acute) lower respiratory infection; T40.2X5A Adverse effect of other opioids, initial encounter; R11.2 Nausea with vomiting, unspecified; E87.6 Hypokalemia; K21.9 Gastro-esophageal reflux disease without esophagitis; D72.829 Elevated white blood cell count, unspecified; E78.5 Hyperlipidemia, unspecified; E86.0 Dehydration; G89.29 Other chronic pain; E16.2 Hypoglycemia, unspecified; E86.1 Hypovolemia; D63.0 Anemia in neoplastic disease; R00.0 Tachycardia, unspecified; M79.89 Other specified soft tissue disorders; Z86.711 Personal history of pulmonary embolism; Z79.899 Other long term (current) drug therapy; Z88.2 Allergy status to sulfonamides; Z88.8 Allergy status to other drugs, medicaments and biological substances; Z87.891 Personal history of nicotine dependence; Z79.01 Long term (current) use of anticoagulants; Z79.51 Long term (current) use of inhaled steroids
CPT/HCPCS: 36415; 71045; 71046; 74018; 74177; 80048; 80053; 83605; 83735; 84145; 84484; 85025; 85379; 85610; 85730; 87636; 93005; 93970; 94640; 94760; 96361; 96374; 96375; 96376; 99285

== ENCOUNTER 2024-11-22 15:04 | Inpatient (IN) | payer OTHER ==
[2024-11-22] MEDS: ONDANSETRON 4 MG/2 ML VIAL IVP STA (16:27)
[2024-11-22] MEDS: HYDROmorphone 1 MG/ML 1 ML SYRINGE IVP STA (16:27)
[2024-11-22] MEDS: PROCHLORPERAZINE INJ 10 MG/2 ML VIAL IVP STA (16:42)
[2024-11-22 16:44] LABS: ALT 23 U/L (4-34); AST 32 U/L (14-36); African American GFR (CKD) >90 (>60 ml/min/1.73 sqM); Albumin 3.3 g/dL (3.5-5.0); Alkaline Phosphatase 129 U/L (38-126); Anion Gap 14 mmol/L; Blood Urea Nitrogen 14 mg/dL (7-17); Carbon Dioxide 26 mmol/L (22-30); Chloride 91 mmol/L (98-107); Glucose 68 mg/dL (74-99); Magnesium 1.7 mg/dL (1.6-2.3); Non-African American GFR(CKD) >90 (>60 ml/min/1.73 sqM); Potassium 3.9 mmol/L (3.5-5.1); Sodium 131 mmol/L (137-145); Total Bilirubin 0.7 mg/dL (0.2-1.3); Total Protein 5.7 g/dL (6.3-8.2)
[2024-11-22 16:48] LABS: Anisocytosis Slight; Basophils % (A) 0 %; Eosinophils % (A) 0 %; HCT 33.9 % (34.0-46.0); HGB 10.2 gm/dL (11.4-16.0); Hypochromasia Marked; Lymphocytes # (A) 1.5 k/uL (1.0-4.8); Lymphocytes % (A) 12 %; MCH 25.8 pg (25.0-35.0); MCHC 30.2 g/dL (31.0-37.0); MCV 85.5 fL (80.0-100.0); Mean Platelet Volume 8.1; Monocytes # (A) 0.9 k/uL (0-1.0); Monocytes % (A) 7 %; Neutrophils # (A) 9.9 k/uL (1.3-7.7); Neutrophils % (A) 79 %; Platelet Count 650 k/uL (150-450); RBC 3.97 m/uL (3.80-5.40); RDW 17.3 % (11.5-15.5); WBC 12.4 k/uL (3.8-10.6)
--- NOTE | 2024-11-22 16:52 | ED ---
Weakness HPI - General Chief complaint: Weakness Stated complaint: vomiting,pain,leg swelling Time Seen by Provider: 11/22/24 15:57 Source: patient, family, RN notes reviewed Mode of arrival: wheelchair Limitations: no limitations - History of Present Illness Initial comments: This is a 59-year-old female who presents to the emergency department for gene ralized weakness. Patient was discharged from the hospital 5 days ago after being admitted for multiple problems including severe abdominal pain related to opioid-induced constipation, nausea and vomiting, and shortness of breath. She has non-small cell lung cancer but is not currently undergoing any treatment at this time. Since being discharged she has not felt any better and states that she feels like she is starting to get worse. She has absolutely no energy and is having increasing abdominal pain. She is having bowel movements, but states that they are not very large. She also continues to have nausea and vomiting despite taking the Zofran. Additionally, she is concerned about the swelling in her legs and is unsure what is causing it. Denies a known history of CHF. She was put on Lasix but states that this has not been helping. MD Complaint: generalized weakness - Related Data Home Medications Medication Instructions Recorded Confirmed Albuterol Inhaler [Ventolin Hfa 2 puff INHALATION RT-Q6H PRN 09/17/19 11/22/24 Inhaler] Cetirizine HCl [Zyrtec] 10 mg PO DAILY 06/21/22 11/22/24 Omeprazole Magnesium [PriLOSEC OTC] 20 mg PO BID 06/21/22 11/22/24 Budesonide-Formot 160-4.5 Mcg 2 puff INHALATION RT-BID 02/28/23 11/22/24 [Symbicort 160-4.5 Mcg Inhaler] HYDROcodone/APAP 10-325MG [[place] 1 tab PO Q6HR PRN 01/05/24 11/22/24 10-325] Lidocaine/Menthol [Asperflex Max 1 patch TRANSDERM DAILY PRN 01/05/24 11/22/24 4%-1% Patch] Linaclotide [Linzess] 145 mcg PO DAILY PRN 01/05/24 11/22/24 Ondansetron Odt [Zofran ODT] 8 mg PO Q6H PRN 03/08/24 01/24/25 Previous Rx's Medication Instructions Recorded Apixaban [Eliquis] 5 mg PO BID 30 Days #60 tab 06/24/22 Ipratropium-Albuterol Nebulize 3 ml INHALATION RT-QID 30 Days 06/24/22 [Duoneb 0.5 mg-3 mg/3 ml Soln] #300 ml guaiFENesin [Mucinex] 600 mg PO Q12HR PRN #30 tab 01/08/24 fentaNYL 50MCG/HR PATCH [Duragesic 1 patch TRANSDERM Q72H patch 10/20/24 50MCG/HR] Gabapentin [Neurontin] 300 mg PO TID #90 cap 11/17/24 Sennosides [Senokot] 8.6 mg PO BID #90 tab 11/17/24 Simethicone Chew [Mylicon Chew] 80 mg PO QID PRN #90 tab 11/17/24 Allergies Allergy/AdvReac Type Severity Reaction Status Date / Time sulfamethoxazole Allergy Rash/Hives Verified 11/22/24 19:23 [From Bactrim] trimethoprim [From Bactrim] Allergy Rash/Hives Verified 11/22/24 19:23 Review of Systems ROS Statement: Those systems with pertinent positive or pertinent negative responses have been documented in the HPI. ROS Other: All systems not noted in ROS Statement are negative. Past Medical History Past Medical History: Cancer, COPD, GERD/Reflux, Hyperlipidemia, Pulmonary Embolus (PE) Additional Past Medical History / Comment(s): Current back and rib cancer. Ovarian cyst. Hx lung cancer 2018 w/wedge resection left upper lobe Oct 2019, hx PE 06/21/22, right lower lobe resection for lung cancer February 2020, had 4 rounds of chemo after that and was cancer free until February 2023. Started immunotherapy every 4 weeks. Last chemotherapy was April 2024. History of Any Multi-Drug Resistant Organisms: None Reported Past Surgical History: Orthopedic Surgery, Tonsillectomy Additional Past Surgical History / Comment(s): Right hand surgery, ectopic surgery, lung resection of left upper lobe and right lower lobe, 1994 had lymph nodes removed from right armpit. Past Anesthesia/Blood Transfusion Reactions: Motion Sickness Additional Past Anesthesia/Blood Transfusion Reaction / Comment(s): motion sickness in the car Past Psychological History: No Psychological Hx Reported Smoking Status: Former smoker Past Alcohol Use History: None Reported Past Drug Use History: None Reported - Past Family History Father Family Medical History: Cancer Mother Family Medical History: Cancer, Deep Vein Thrombosis (DVT), Pulmonary Embolus General Exam Limitations: no limitations General appearance: alert, in no apparent distress Head exam: Present: atraumatic, normocephalic, normal inspection Respiratory exam: Present: decreased breath sounds, prolonged expiratory Cardiovascular Exam: Present: normal rhythm, tachycardia GI/Abdominal exam: Present: distended, tenderness (diffuse) Extremities exam: Present: pedal edema Neurological exam: Present: alert, oriented X3, CN II-XII intact Psychiatric exam: Present: normal affect, normal mood Skin exam: Present: warm, dry, intact, normal color. Absent: rash Course Vital Signs 11/22/24 11/22/24 11/22/24 15:32 17:07 21:00 Temperature 98.1 F Pulse Rate 130 H 129 H 120 H Respiratory 20 18 18 Rate Blood Pressure 118/74 131/80 108/74 O2 Sat by Pulse 96 98 Oximetry Medical Decision Making - Medical Decision Making This is a 59-year-old female who presents to the emergency department for weakne ss, shortness of breath, and abdominal pain. Was pt. sent in by a medical professional or institution? @ -No Did you speak to anyone other than the patient for history? @ -No Did you review nursing and triage notes? @ -Yes, and I agree, it is accurate with regards to the patient's symptoms. Were old charts reviewed? @ -No Differential Diagnosis? @ -Differential Weakness: Hypoglycemia, shock, sepsis, hyponatremia, anemia, infection, VT, ETOH, adverse medicine reaction, overdose, stroke, this is not meant to be an all-inclusive list. EKG interpreted by me (3pts min.)? @ -EKG interpreted by me demonstrating the following: Sinus tachycardia. Ventricular rate 123 bpm, MD interval 154 ms, QRS duration 85 ms, QTc 382 ms. X-rays interpreted by me (1pt min.)? @ -Chest x-ray obtained. My interpretation identifies bilateral pleural effusions. CT interpreted by me (1pt min.)? @ -CTA of the chest obtained. My interpretation identifies no evidence of a pulmonary embolus. CT scan of the abdomen and pelvis obtained. My interpretation identifies proximal dilated small bowel loops. U/S interpreted by me (1pt. min.)? @ -Not obtained What testing was considered but not performed? (CT, X-rays, U/S, labs)? Why? @ -None What meds were considered but not given? Why? @ -None Did you discuss the management of the patient with other professionals? @ -Yes, Dr. Rojas, who accepts the patient for admission. Did you reconcile home meds? @ -Yes Was smoking cessation discussed for >3mins.? @ -No Was critical care preformed (if so, how long)? @ -No Were there social determinants of health that impacted care today? How? (Homelessness, low income, unemployed, alcoholism, drug addiction, tra nsportation, low edu. Level, literacy, decrease access to med. care, intermediate, rehab)? @ -No Was there de-escalation of care discussed even if they declined? (Discuss DNR or withdrawal of care, Hospice)? @ -No What co-morbidities impacted this encounter? (DM, HTN, Smoking, COPD, CAD, Cancer, CVA, Hep., AIDS, mental health diagnosis, sleep apnea, morbid obesity)? @ -Lung cancer, COPD Was patient admitted / discharged? @ -Admitted. Lab work demonstrates leukocytosis with a white blood cell count of 12.4. D-dimer elevated at 1.64, which is expected given her cancer history. Urinalysis negative for signs of infection. COVID, influenza, and RSV testing negative. Chest x-ray reveals moderate right and minimal posterior left pleural effusions. CTA of the chest reveals no evidence of a pulmonary embolus. She has a stable appearance of the right lung cancer as well as a new left pleural effusion. CT scan of the abdomen and pelvis obtained as well and she has what appears to be an obstruction at the third portion of the duodenum with significant dilation of the duodenum. She also has a large fluid-filled loculated collection within the anterior abdomen. Patient's vomiting also appeared to be feculent. Orders placed for NG tube. She was also started on Zosyn for any potential infectious component. Patient admitted to medicine for the small bowel obstruction and bilateral pleural effusions. Consult placed for general surgery and pulmonology. Will keep patient n.p.o. pending surgical christelle luation. Case discussed with ED attending Dr. Brink. Undiagnosed new problem with uncertain prognosis? @ -None Drug Therapy requiring intensive monitoring for toxicity (Heparin, Nitro, Insulin, Cardizem)? @ -None Were any procedures done? @ -None Diagnosis/symptom? @ -Small bowel obstruction, bilateral pleural effusions Acute, or Chronic, or Acute on Chronic? @ -Acute Uncomplicated (without systemic symptoms) or Complicated (systemic symptoms)? @ -Complicated Side effects of treatment? @ -None Exacerbation, Progression, or Severe Exacerbation] @ -Not applicable Poses a threat to life or bodily function? @ -Yes, can lead to bowel perforation and . - Lab Data Result diagrams: 11/22/24 16:17 11/22/24 16:17 Lab Results 11/22/24 11/22/24 11/22/24 Range/Units 16:17 16:17 16:17 WBC 12.4 H (3.8-10.6) k/uL RBC 3.97 (3.80-5.40) m/uL Hgb 10.2 L (11.4-16.0) gm/dL Hct 33.9 L (34.0-46.0) % MCV 85.5 (80.0-100.0) fL MCH 25.8 (25.0-35.0) pg MCHC 30.2 L (31.0-37.0) g/dL RDW 17.3 H (11.5-15.5) % Plt Count 650 H (150-450) k/uL MPV 8.1 Neutrophils % 79 % Lymphocytes % 12 % Monocytes % 7 % Eosinophils % 0 % Basophils % 0 % Neutrophils # 9.9 H (1.3-7.7) k/uL Lymphocytes # 1.5 (1.0-4.8) k/uL Monocytes # 0.9 (0-1.0) k/uL Eosinophils # 0.0 (0-0.7) k/uL Basophils # 0.0 (0-0.2) k/uL Hypochromasia Marked Anisocytosis Slight PT 12.4 (10.0-12.5) sec INR 1.2 H (<1.2) APTT 22.0 (22.0-30.0) sec D-Dimer 1.64 H (<0.60) mg/L FEU Sodium (137-145) mmol/L Potassium (3.5-5.1) mmol/L Chloride (98-107) mmol/L Carbon Dioxide (22-30) mmol/L Anion Gap mmol/L BUN (7-17) mg/dL Creatinine (0.52-1.04) mg/dL Est GFR (CKD-EPI)AfAm (>60 ml/min/1.73 sqM) Est GFR (CKD-EPI)NonAf (>60 ml/min/1.73 sqM) Glucose (74-99) mg/dL Plasma Lactic Acid Erwin (0.7-2.0) mmol/L Calcium (8.4-10.2) mg/dL Magnesium (1.6-2.3) mg/dL Total Bilirubin (0.2-1.3) mg/dL AST (14-36) U/L ALT (4-34) U/L Alkaline Phosphatase (38-126) U/L Troponin I (0.000-0.034) ng/mL NT-Pro-B Natriuret Pep pg/mL Total Protein (6.3-8.2) g/dL Albumin (3.5-5.0) g/dL Urine Color Yellow Urine Appearance Clear (Clear) Urine pH 6.0 (5.0-8.0) Ur Specific [place] 1.026 (1.001-1.035) Urine Protein 1+ H (Negative) Urine Glucose (UA) Negative (Negative) Urine Ketones 4+ H (Negative) Urine Blood Negative (Negative) Urine Nitrite Negative (Negative) Urine Bilirubin 1+ H (Negative) Urine Urobilinogen 3.0 (<2.0) mg/dL Ur Leukocyte Esterase Negative (Negative) Urine RBC <1 (0-5) /hpf Urine WBC 3 (0-5) /hpf Ur Squamous Epith Cells 4 (0-4) /hpf Urine Mucus Rare H (None) /hpf Influenza Type A (PCR) (Not Detectd) Influenza Type B (PCR) (Not Detectd) RSV (PCR) (Not Detectd) SARS-CoV-2 (PCR) (Not Detectd) 11/22/24 11/22/24 11/22/24 Range/Units 16:17 16:17 16:17 WBC (3.8-10.6) k/uL RBC (3.80-5.40) m/uL Hgb (11.4-16.0) gm/dL Hct (34.0-46.0) % MCV (80.0-100.0) fL MCH (25.0-35.0) pg MCHC (31.0-37.0) g/dL RDW (11.5-15.5) % Plt Count (150-450) k/uL MPV Neutrophils % % Lymphocytes % % Monocytes % % Eosinophils % % Basophils % % Neutrophils # (1.3-7.7) k/uL Lymphocytes # (1.0-4.8) k/uL Monocytes # (0-1.0) k/uL Eosinophils # (0-0.7) k/uL Basophils # (0-0.2) k/uL Hypochromasia Anisocytosis PT (10.0-12.5) sec INR (<1.2) APTT (22.0-30.0) sec D-Dimer (<0.60) mg/L FEU Sodium 131 L (137-145) mmol/L Potassium 3.9 (3.5-5.1) mmol/L Chloride 91 L (98-107) mmol/L Carbon Dioxide 26 (22-30) mmol/L Anion Gap 14 mmol/L BUN 14 (7-17) mg/dL Creatinine 0.59 (0.52-1.04) mg/dL Est GFR (CKD-EPI)AfAm >90 (>60 ml/min/1.73 sqM) Est GFR (CKD-EPI)NonAf >90 (>60 ml/min/1.73 sqM) Glucose 68 L (74-99) mg/dL Plasma Lactic Acid Erwin 1.1 (0.7-2.0) mmol/L Calcium 9.0 (8.4-10.2) mg/dL Magnesium 1.7 (1.6-2.3) mg/dL Total Bilirubin 0.7 (0.2-1.3) mg/dL AST 32 (14-36) U/L ALT 23 (4-34) U/L Alkaline Phosphatase 129 H (38-126) U/L Troponin I <0.012 (0.000-0.034) ng/mL NT-Pro-B Natriuret Pep 215 pg/mL Total Protein 5.7 L (6.3-8.2) g/dL Albumin 3.3 L (3.5-5.0) g/dL Urine Color Urine Appearance (Clear) Urine pH (5.0-8.0) Ur Specific [place] (1.001-1.035) Urine Protein (Negative) Urine Glucose (UA) (Negative) Urine Ketones (Negative) Urine Blood (Negative) Urine Nitrite (Negative) Urine Bilirubin (Negative) Urine Urobilinogen (<2.0) mg/dL Ur Leukocyte Esterase (Negative) Urine RBC (0-5) /hpf Urine WBC (0-5) /hpf Ur Squamous Epith Cells (0-4) /hpf Urine Mucus (None) /hpf Influenza Type A (PCR) (Not Detectd) Influenza Type B (PCR) (Not Detectd) RSV (PCR) (Not Detectd) SARS-CoV-2 (PCR) (Not Detectd) 11/22/24 Range/Units 16:21 WBC (3.8-10.6) k/uL RBC (3.80-5.40) m/uL Hgb (11.4-16.0) gm/dL Hct (34.0-46.0) % MCV (80.0-100.0) fL MCH (25.0-35.0) pg MCHC (31.0-37.0) g/dL RDW (11.5-15.5) % Plt Count (150-450) k/uL MPV Neutrophils % % Lymphocytes % % Monocytes % % Eosinophils % % Basophils % % Neutrophils # (1.3-7.7) k/uL Lymphocytes # (1.0-4.8) k/uL Monocytes # (0-1.0) k/uL Eosinophils # (0-0.7) k/uL Basophils # (0-0.2) k/uL Hypochromasia Anisocytosis PT (10.0-12.5) sec INR (<1.2) APTT (22.0-30.0) sec D-Dimer (<0.60) mg/L FEU Sodium (137-145) mmol/L Potassium (3.5-5.1) mmol/L Chloride (98-107) mmol/L Carbon Dioxide (22-30) mmol/L Anion Gap mmol/L BUN (7-17) mg/dL Creatinine (0.52-1.04) mg/dL Est GFR (CKD-EPI)AfAm (>60 ml/min/1.73 sqM) Est GFR (CKD-EPI)NonAf (>60 ml/min/1.73 sqM) Glucose (74-99) mg/dL Plasma Lactic Acid Erwin (0.7-2.0) mmol/L Calcium (8.4-10.2) mg/dL Magnesium (1.6-2.3) mg/dL Total Bilirubin (0.2-1.3) mg/dL AST (14-36) U/L ALT (4-34) U/L Alkaline Phosphatase (38-126) U/L Troponin I (0.000-0.034) ng/mL NT-Pro-B Natriuret Pep pg/mL Total Protein (6.3-8.2) g/dL Albumin (3.5-5.0) g/dL Urine Color Urine Appearance (Clear) Urine pH (5.0-8.0) Ur Specific [place] (1.001-1.035) Urine Protein (Negative) Urine Glucose (UA) (Negative) Urine Ketones (Negative) Urine Blood (Negative) Urine Nitrite (Negative) Urine Bilirubin (Negative) Urine Urobilinogen (<2.0) mg/dL Ur Leukocyte Esterase (Negative) Urine RBC (0-5) /hpf Urine WBC (0-5) /hpf Ur Squamous Epith Cells (0-4) /hpf Urine Mucus (None) /hpf Influenza Type A (PCR) Not Detected (Not Detectd) Influenza Type B (PCR) Not Detected (Not Detectd) RSV (PCR) Not Detected (Not Detectd) SARS-CoV-2 (PCR) Not Detected (Not Detectd) - Radiology Data Radiology results: report reviewed, image reviewed Disposition Clinical Impression: Small bowel obstruction, Bilateral pleural effusion Disposition: ADMITTED IP TO THIS HOSP
[2024-11-22 16:53] LABS: NT-Pro-B-Type Natriuretic Pept 215 pg/mL
[2024-11-22 16:56] LABS: INR 1.2 (<1.2); Prothrombin Time 12.4 sec (10.0-12.5)
[2024-11-22 17:03] LABS: Appearance,Urine Clear (Clear); Bilirubin,Urine 1+ (Negative); Blood,Urine Negative (Negative); Color,Urine Yellow; Glucose,Urine (UA) Negative (Negative); Ketones,Urine 4+ (Negative); Leukocyte Esterase,Urine Negative (Negative); Mucus,Urine Rare /hpf; Nitrite,Urine Negative (Negative); Protein,Urine 1+ (Negative); RBC,Urine <1 /hpf (0-5); Specific Gravity,Urine 1.026 (1.001-1.035); Squamous Epithelial Cell,Urine 4 /hpf (0-4); WBC,Urine 3 /hpf (0-5)
[2024-11-22 17:05] LABS: Influenza A Not Detected (Not Detectd); Influenza B Not Detected (Not Detectd); RSV Not Detected (Not Detectd)
[2024-11-22] MEDS: DEXTROSE 50% SYRINGE 50 ML IVP STA (17:56)
[2024-11-22] MEDS: SODIUM CHLORIDE 0.9% 500 ML 500 ML IV STA (18:03)
[2024-11-22] MEDS: SODIUM CHLORIDE 0.9% 1,000 ML IV STA (18:03)
--- NOTE | 2024-11-22 18:54 | CT ---
EXAMINATION TYPE: CT abdomen pelvis w con DATE OF EXAM: 11/22/2024 5:57 PM COMPARISON: None. CLINICAL INDICATION: Female, 59 years old with history of Abdominal pain, distention, nausea/vomiting , met. Ca. TECHNIQUE: Axial images were obtained from above the diaphragm to the pubic rami in the axial plane a t 5 mm thick sections. Reconstructed images are reviewed on the computer in the coronal plane. CONTRAST: 100 mL of Isovue 370. Study performed without Oral Contrast DLP: 845.4 mGycm, Automated exposure control for dose reduction was used. FINDINGS: Limited CT sections are obtained the lung bases. Small left pleural effusion is present.. CT ABDOMEN: Liver: Normal Spleen: Normal Pancreas: Normal Adrenal glands: Left adrenal gland is thickened at 1.9 cm. Right adrenal gland and minimal thickening . Gallbladder: Normal Kidneys: No masses are evident. No hydronephrosis is present. No cysts are present. Aorta: Vascular calcification is within the aorta. Inferior vena cava: Normal. CT PELVIS: Proximal bowel loops which are dilated. There is also large loculated fluid collections displacing no rmal-appearing small bowel loops and colon. Zone of transition appears to be within the proximal jeju num. This study is without oral contrast limiting bowel evaluation. Separation of loculated abdominal fluid from dilated small bowel loops is difficult limiting identification of the zone of transition. However this appears to be at the third portion of the duodenum just anterior to the aorta. Example series 601 image 26. Appendix: Not identified. No dilated tubular structures evident. Urinary bladder: Decompressed and cannot be evaluated . Genitourinary structures: What appears to be the uterus is normal. Adnexal regions are nonspecific. T he loculated very large fluid collection along the anterior abdomen appears to arise within the pelvi s extending superiorly from the adnexal regions. Osseous structures: No suspicious lytic or sclerotic lesions. IMPRESSION: 1. Appears to be obstruction likely at the third portion of the duodenum with significant dilatation of the duodenum. 2. Large fluid-filled loculated collection within the anterior abdomen. 3. Small left pleural effusion. 4. Thickened left adrenal gland [facility], Workstation: [facility], 11/22/2024 6:52 PM
--- NOTE | 2024-11-22 18:57 | XR ---
EXAMINATION TYPE: XR chest 2V DATE OF EXAM: 11/22/2024 5:44 PM COMPARISON: 11/16/2024 CLINICAL INDICATION: Female, 59 years old with history of Weakness, TECHNIQUE: XR chest 2V view(s) obtained. Patient is rotated to the right FINDINGS: The heart size is normal. The pulmonary vasculature is normal. There may be a small left pleural effusion in the lateral projection. There is a moderate right pleu ral effusion. This tracks along the lateral right chest to the apex. Right sided port is present with the tip in the superior vena cava region.. Findings are similar to comparison IMPRESSION: 1. Moderate right and minimal posterior left pleural effusions [facility], Workstation: [facility], 11/22/2024 6:55 PM
[2024-11-22] MEDS: HYDROmorphone 0.5 MG/0.5 ML SYRINGE IVP STA (19:02)
--- NOTE | 2024-11-22 19:06 | CT ---
EXAMINATION TYPE: CT chest angio for PE DATE OF EXAM: 11/22/2024 5:57 PM COMPARISON: 11/07/2024 CLINICAL INDICATION: Female, 59 years old with history of DANIEL, tachycardia, DANIEL, tachycardia. Positiv e dimer. TECHNIQUE: CT of the chest is performed on a spiral scan at 2 mm thick sections. Study is performed with intravenous contrast timed for evaluation for pulmonary embolism. This will limit additional po rtions of the evaluation. 3-D MIP images reconstructed by the technologist are reviewed on the compu ter in the coronal and sagittal planes. Contrast used:100 mL of Isovue 370 with IV Contrast, (none if empty) Oral contrast used: (none if empty) CT DLP: 845.4 mGycm, Automated exposure control for dose reduction was used. FINDINGS: Portions of the thyroid visualized is unremarkable. There may be a large subcarinal lymph node. Hilar adenopathy would be difficult to exclude. There is a thick pleural thickening through the right lung to the right apex. Some consolidation is a t the right lung base. Loculated low density collection along the medial posterior right paraspinal border remains present. The ascending aorta diameter at the level of the main pulmonary artery is 3.1 cm. The main pulmonary artery diameter at the bifurcation is 3.[address] sections were through the upper abdomen. Upper abdomen appears unremarkable. IMPRESSION: 1. Stable appearance of the patient's right lung cancer. 2. New left pleural effusion. 3. Subcarinal lymph node [facility], Workstation: [facility], 11/22/2024 7:04 PM
[2024-11-22] MEDS ORDERED: NALOXONE 0.4 MG/ML 1 ML VIAL IV PRN (19:29)
[2024-11-22] MEDS: HYDROcodone/APAP 10-325MG 1 EACH TAB PO ONE (19:40)
[2024-11-22] MEDS: HYDROmorphone 1 MG/ML 1 ML SYRINGE IVP PRN (20:58)
[2024-11-22] MEDS: PIPERACILLIN-TAZOBACTAM 3.375 GM in SODIUM CHLORIDE 0.9% 100 ML IVPB SCH (20:58)
[2024-11-22] MEDS: METOCLOPRAMIDE 5 MG/ML 2 ML VIAL IVP STA (20:59)
[2024-11-22] MEDS: HYDROmorphone 0.5 MG/0.5 ML SYRINGE IVP PRN (23:24)
[2024-11-23] MEDS ORDERED: NON FORMULARY DRUG (Linaclotide [Linzess] 145 MCG Capsule) PO PRN (00:24)
[2024-11-23] MEDS ORDERED: ONDANSETRON ODT 4 MG TAB PO PRN (00:24)
[2024-11-23] MEDS ORDERED: LIDOCAINE 4% PATCH TOPICAL PRN (00:24)
--- NOTE | 2024-11-23 00:57 | P.HPIM ---
History of Present Illness H&P Date: 11/22/24 Chief Complaint: Nausea, vomiting, abdominal pain Patient is a 59-year-old female with PMH of stage IV lung cancer managed by Dr. Janice carrasco, COPD(not requiring home oxygen), GERD, hyperlipidemia, history of pulmonary embolism on Eliquis presents to the ER with nausea, vomiting and abdominal pain. Patient describes the abdominal pain as bandlike and states it was a 9 out of 10 prior to coming to the ER, currently a 6 out of 10. Patient reports having bowel movements but has difficulty passing gas. Patient also reports being weak and states she has had lower extremity swelling which started after she was discharged and has been getting worse. She states the lower extremity edema has impeded her from her ADLs. Patient denies any calf tenderness or recent travel. She denies fevers, chills, chest pain, shortness of breath. It is of note that patient had recent admission for shortness of breath and hemoptysis. CTA was negative for PE. CT abdomen pelvis showed constipation and mild bowel wall thickening. Pulmonology, oncology, and general surgery follow-up with the patient. Hemoptysis resolved, Eliquis was resumed. Patient was started on bowel regimen and began having bowel movements. Patient was instructed to follow-up outpatient with PCP, oncology, pulmonology, and general surgery. Labs on admission show WBCs 12.4 with left shift, hemoglobin 10.2, MCV 85.5, platelets 650. PT 12.4, INR 1.2, PT 22, D-dimer 1.64. Sodium 131, potassium 3.9, chloride 91, bicarb 26, BUN 14, creatinine 0.59, glucose 68. Urinalysis 4+ for ketones. Cepheid was negative. Review of systems: Pertinent positives and negatives as discussed in HPI, a complete review of systems was performed and all other systems are negative. Allergies: Bactrim PCP: Dr. Foster Social history: Tobacco: Former smoker of 1 and half packs a day for more than 20 years quit in August 2019 Alcohol: None Recreational drugs: None Travel: None Sick contacts: None Physical examination: Vitals on admission temperature 97.9, heart rate 123 bpm, respiratory rate 18, blood pressure 120/73, O2 saturation 96% on room air General: nontoxic, mild distress, appears at stated age, appears frail Derm: warm, dry, intact Head: atraumatic, normocephalic, symmetric Eyes: anicteric sclera Mouth: no lip lesion, mucus membranes moist Cardiovascular: S1 S2 reg, no murmur Lungs: Diminished breath sounds bilaterally, no wheezing, rales, rhonchi Abdominal: mild distended, diffuse abdominal tenderness to palpation, no guarding, no fluid wave Extremities: 2+ pitting edema bilateral lower extremities up to the knee, no warmth or erythema noted Neuro: Alert, Oriented to person, time and place, Gross neurological examination did not reveal any focal deficits. Cranial nerves II to XII grossly intact. Bilateral upper and lower extremity muscle strength intact and sensation intact. Psych: well appearing, appropriate affect Assessment/Plan: Patient is a 59-year-old female with stage IV lung cancer, COPD, chronic constipation secondary to opioid use who presented to the ED with chief complaint of nausea, vomiting, abdominal pain. Case was discussed with ER doctor and patient will be admitted to internal medicine service for further management of small bowel obstruction. CTA shows stable appearance of patient's right lung, new left pleural effusion, subcarinal lymph node, no PE noted Labs on admission show WBCs 12.4 with left shift, hemoglobin 10.2, MCV 85.5, platelets 650. PT 12.4, INR 1.2, PT 22, D-dimer 1.64. Sodium 131, potassium 3.9, chloride 91, bicarb 26, BUN 14, creatinine 0.59, glucose 68. Urinalysis 4+ for ketones. Cepheid was negative. Active: Intractable nausea and vomiting in the setting of constipation and stage IV lung cancer Small bowel obstruction with suspected intra-abdominal abscess CT abdomen pelvis showed obstruction likely at third portion of duodenum with significant dilatation of duodenum, large fluid-filled loculated collection within the anterior abdomen NG tube to low intermittent suction Patient will remain NPO LR bolus total 1.5 L , then continue 100 cc per hour Continue Zofran 4 mg every 8 hours as needed Continue Dilaudid every 3 hours as needed Continue Zosyn 3.375 g IV every 8 hours General Surgery consult patient refused NG tube, Protonix 80 mg IVP once , continue with Protonix 40 mg ivp BID Recurrent bilateral pleural effusions CXR shows moderate right and minimal posterior left pleural effusions Consult pulmonology Elevated D-dimer at 1.64, history of PE Patient does not report chest pain or shortness of breath CTA shows stable appearance of patient's right lung, new left pleural effusion, subcarinal lymph node, no PE noted Hypovolemic hyponatremia, likely secondary to vomiting Continue with IV fluids 100 mL/h Continue to monitor with BMP Leukocytosis, thrombocytosis likely reactive WBCs 12.4 with left shift, platelets 650 Continue to monitor CBC Normocytic anemia, at baseline Hemoglobin 10.2, MCV 85.5 Continue to monitor suspected GI bleed monitor CBC q 6hr Sinus tachycardia, likely due to intractable vomiting, hypovolemia, and pain EKG independently interpreted as sinus tachycardia with ventricular rate of 123 bpm and QTc of 382 ms, poor R wave progression, with no acute ST-T wave changes suggestive of ischemia Cardiac monitoring Chronic: GERD Continue Protonix 40 mg IV BID Stage IV lung cancer Consult heme-onc F: LR at 100 mL/h E: Replete as needed N: NPO A: As tolerated DVT prophylaxis: SCD due to suspected GI bleed The patient is admitted with an anticipated more than 2 midnight stay for evaluation of small bowel obstruction CODE STATUS: Full code Discussed with: Patient Anticipated discharge place: Pending clinical course I have seen and evaluated the patient today. I Discussed the case with the resident and agree with the resident's findings I edited the assessment and plan as necessary as documented in the resident's note. Past Medical History Past Medical History: Cancer, COPD, GERD/Reflux, Hyperlipidemia, Pulmonary Embolus (PE) History of Any Multi-Drug Resistant Organisms: None Reported Past Surgical History: Orthopedic Surgery, Tonsillectomy Additional Past Surgical History / Comment(s): Right hand surgery, ectopic surgery, lung resection of left upper lobe and right lower lobe, 1994 had lymph nodes removed from right armpit. Past Anesthesia/Blood Transfusion Reactions: Motion Sickness Additional Past Anesthesia/Blood Transfusion Reaction / Comment(s): motion s ickness in the car Past Psychological History: No Psychological Hx Reported Smoking Status: Former smoker Past Alcohol Use History: None Reported Past Drug Use History: None Reported - Past Family History Father Family Medical History: Cancer Mother Family Medical History: Cancer, Deep Vein Thrombosis (DVT), Pulmonary Embolus Medications and Allergies Home Medications Medication Instructions Recorded Confirmed Type Albuterol Inhaler [Ventolin Hfa 2 puff INHALATION RT-Q6H PRN 09/17/19 11/22/24 History Inhaler] Cetirizine HCl [Zyrtec] 10 mg PO DAILY 06/21/22 11/22/24 History Omeprazole Magnesium [PriLOSEC OTC] 20 mg PO BID 06/21/22 11/22/24 History Apixaban [Eliquis] 5 mg PO BID 30 Days #60 tab 06/24/22 11/22/24 Rx Ipratropium-Albuterol Nebulize 3 ml INHALATION RT-QID 30 Days 06/24/22 11/22/24 Rx [Duoneb 0.5 mg-3 mg/3 ml Soln] #300 ml Budesonide-Formot 160-4.5 Mcg 2 puff INHALATION RT-BID 02/28/23 11/22/24 History [Symbicort 160-4.5 Mcg Inhaler] HYDROcodone/APAP 10-325MG [Odin 1 tab PO Q6HR PRN 01/05/24 11/22/24 History 10-325] Lidocaine/Menthol [Asperflex Max 1 patch TRANSDERM DAILY PRN 01/05/24 11/22/24 History 4%-1% Patch] Linaclotide [Linzess] 145 mcg PO DAILY PRN 01/05/24 11/22/24 History Ondansetron Odt [Zofran ODT] 8 mg PO Q6H PRN 01/05/24 11/22/24 History guaiFENesin [Mucinex] 600 mg PO Q12HR PRN #30 tab 01/08/24 11/22/24 Rx fentaNYL 50MCG/HR PATCH [Duragesic 1 patch TRANSDERM Q72H patch 10/20/24 11/22/24 Rx 50MCG/HR] Gabapentin [Neurontin] 300 mg PO TID #90 cap 11/17/24 11/22/24 Rx Sennosides [Senokot] 8.6 mg PO BID #90 tab 11/17/24 11/22/24 Rx Simethicone Chew [Mylicon Chew] 80 mg PO QID PRN #90 tab 11/17/24 11/22/24 Rx Allergies Allergy/AdvReac Type Severity Reaction Status Date / Time sulfamethoxazole Allergy Rash/Hives Verified 11/22/24 19:23 [From Bactrim] trimethoprim [From Bactrim] Allergy Rash/Hives Verified 11/22/24 19:23 Physical Exam Vitals: Vital Signs Temp Pulse Resp BP Pulse Ox 11/22/24 17:07 129 H 18 131/80 98 11/22/24 15:32 98.1 F 130 H 20 118/74 96 Intake and Output 11/22/24 11/22/24 11/22/24 06:59 14:59 22:59 Other: Weight 49.895 kg Results CBC & Chem 7: 11/22/24 16:17 11/22/24 16:17 Labs: Abnormal Lab Results - Last 24 Hours (Table) 11/22/24 11/22/24 11/22/24 Range/Units 16:17 16:17 16:17 WBC 12.4 H (3.8-10.6) k/uL Hgb 10.2 L (11.4-16.0) gm/dL Hct 33.9 L (34.0-46.0) % MCHC 30.2 L (31.0-37.0) g/dL RDW 17.3 H (11.5-15.5) % Plt Count 650 H (150-450) k/uL Neutrophils # 9.9 H (1.3-7.7) k/uL INR 1.2 H (<1.2) D-Dimer 1.64 H (<0.60) mg/L FEU Sodium (137-145) mmol/L Chloride (98-107) mmol/L Glucose (74-99) mg/dL Alkaline Phosphatase (38-126) U/L Total Protein (6.3-8.2) g/dL Albumin (3.5-5.0) g/dL Urine Protein 1+ H (Negative) Urine Ketones 4+ H (Negative) Urine Bilirubin 1+ H (Negative) Urine Mucus Rare H (None) /hpf 11/22/24 Range/Units 16:17 WBC (3.8-10.6) k/uL Hgb (11.4-16.0) gm/dL Hct (34.0-46.0) % MCHC (31.0-37.0) g/dL RDW (11.5-15.5) % Plt Count (150-450) k/uL Neutrophils # (1.3-7.7) k/uL INR (<1.2) D-Dimer (<0.60) mg/L FEU Sodium 131 L (137-145) mmol/L Chloride 91 L (98-107) mmol/L Glucose 68 L (74-99) mg/dL Alkaline Phosphatase 129 H (38-126) U/L Total Protein 5.7 L (6.3-8.2) g/dL Albumin 3.3 L (3.5-5.0) g/dL Urine Protein (Negative) Urine Ketones (Negative) Urine Bilirubin (Negative) Urine Mucus (None) /hpf
[2024-11-23] MEDS: PANTOPRAZOLE 40 MG/10 ML VIAL IVP ONE (01:08)
[2024-11-23] MEDS: LACTATED RINGERS 500 ML IV ONE (01:20)
[2024-11-23] MEDS: LACTATED RINGERS 1,000 ML IV SCH (01:20)
[2024-11-23 03:17] LABS: Anisocytosis Slight; Basophils % (A) 0 %; Eosinophils % (A) 0 %; HCT 30.5 % (34.0-46.0); HGB 9.1 gm/dL (11.4-16.0); Hypochromasia Marked; Lymphocytes # (A) 1.6 k/uL (1.0-4.8); Lymphocytes % (A) 10 %; MCH 25.8 pg (25.0-35.0); MCHC 29.7 g/dL (31.0-37.0); MCV 87.1 fL (80.0-100.0); Mean Platelet Volume 8.3; Monocytes # (A) 1.3 k/uL (0-1.0); Monocytes % (A) 9 %; Neutrophils # (A) 12.4 k/uL (1.3-7.7); Neutrophils % (A) 80 %; Platelet Count 608 k/uL (150-450); Poikilocytosis Slight; RBC 3.51 m/uL (3.80-5.40); RDW 17.4 % (11.5-15.5); WBC 15.6 k/uL (3.8-10.6)
[2024-11-23] MEDS: PANTOPRAZOLE 40 MG/10 ML VIAL IVP SCH (04:19)
[2024-11-23] MEDS ORDERED: PANTOPRAZOLE 40 MG TABLET PO SCH ×2 (07:30)
[2024-11-23] MEDS: SYMBICORT 160-4.5 MCG INHALER INHALATION SCH (08:16)
[2024-11-23] MEDS: IPRATROPIUM-ALBUTEROL 3 ML NEB INHALATION SCH (08:16)
[2024-11-23] MEDS ORDERED: PANTOPRAZOLE 40 MG/10 ML VIAL IV SCH (09:00)
--- NOTE | 2024-11-23 09:06 | P.CON ---
Consult Note - . Consult date: 11/23/24 Assessment/Plan:: This is a 59-year-old female who presents to the emergency department for generalized weakness. Patient was discharged from the hospital 5 days ago after being admitted for multiple problems including severe abdominal pain related to opioid-induced constipation, nausea and vomiting, and shortness of breath. She has non-small cell lung cancer but is not currently undergoing any treatment at this time. Since being discharged she has not felt any better and states that she feels like she is starting to get worse. She has absolutely no energy and is having increasing abdominal pain. She is having bowel movements. She is not passing any gas. She had a CT-AP which showed a bowel obstruction in the area of the duodenum and a complex fluid collection in her anterior abdomen. Review of Systems ROS Statement: Those systems with pertinent positive or pertinent negative responses have been documented in the HPI. ROS Other: All systems not noted in ROS Statement are negative. Past Medical History Past Medical History: Cancer, COPD, GERD/Reflux, Hyperlipidemia, Pulmonary Embolus (PE) Additional Past Medical History / Comment(s): Current back and rib cancer. Ovarian cyst. Hx lung cancer 2018 w/wedge resection left upper lobe Oct 2019, hx PE 06/21/22, right lower lobe resection for lung cancer February 2020, had 4 rounds of chemo after that and was cancer free until February 2023. Started immunotherapy every 4 weeks. Last chemotherapy was April 2024. History of Any Multi-Drug Resistant Organisms: None Reported Past Surgical History: Orthopedic Surgery, Tonsillectomy Additional Past Surgical History / Comment(s): Right hand surgery, ectopic surgery, lung resection of left upper lobe and right lower lobe, 1994 had lymph nodes removed from right armpit. Past Anesthesia/Blood Transfusion Reactions: Motion Sickness Additional Past Anesthesia/Blood Transfusion Reaction / Comment(s): motion sickness in the car Past Psychological History: No Psychological Hx Reported Smoking Status: Former smoker Past Alcohol Use History: None Reported Past Drug Use History: None Reported - Past Family History Father Family Medical History: Cancer Mother Family Medical History: Cancer, Deep Vein Thrombosis (DVT), Pulmonary Embolus General Exam Limitations: no limitations General appearance: alert, in no apparent distress Head exam: Present: atraumatic, normocephalic, normal inspection Respiratory exam: Present: decreased breath sounds, prolonged expiratory Cardiovascular Exam: Present: normal rhythm, tachycardia GI/Abdominal exam: Present: distended, tenderness (diffuse) Extremities exam: Present: pedal edema Neurological exam: Present: alert, oriented X3, CN II-XII intact Psychiatric exam: Present: normal affect, normal mood Skin exam: Present: warm, dry, intact, normal color. Absent: rash 59 year old female with Stage IV Lung Cancer presents with Small Bowel Obstruction and Complex Fluid Collection in the Anterior Abdomen -NPO -Patient refused Nasogastric Tube. However, after some discussion patient has now agreed to Nasogastric Tube -IV fluids -Zosyn -IR consult for drainage of abdominal fluid collection -If patients symptoms do not improve in the next 24-48 hours, will obtain a Small Bowel [phone]
[2024-11-23 09:40] LABS: Basophils # (A) 0.04 X 10*3/uL (0.00-0.10); Basophils % (A) 0.3 %; Eosinophils # (A) 0 X 10*3/uL (0.04-0.35); Eosinophils % (A) 0 %; HCT 30.5 % (37.2-46.3); HGB 8.9 g/dL (12.0-15.0); Lymphocytes # (A) 1.41 X 10*3/uL (0.90-5.00); MCHC 29.2 g/dL (32.0-37.0); MCV 85.7 FL (80.0-97.0); Monocytes # (A) 1.42 X 10*3/uL (0.20-1.00); Monocytes % (A) 10.1 %; NRBC Per 100 WBC 0 X 10*3/uL (0.00-0.01); Neutrophils % (A) 78.9 %; Platelet Count 600 X 10*3/uL (140-440); RBC 3.56 X 10*6/uL (4.10-5.20); RDW 18.1 % (11.5-14.5); WBC 14.07 X 10*3/uL (4.50-10.00)
[2024-11-23 09:49] LABS: Anisocytosis Slight; Basophils % (A) 0 %; Eosinophils % (A) 0 %; HCT 32.8 % (34.0-46.0); HGB 9.6 gm/dL (11.4-16.0); Hypochromasia Marked; Lymphocytes # (A) 1.3 k/uL (1.0-4.8); Lymphocytes % (A) 10 %; MCH 25.6 pg (25.0-35.0); MCHC 29.2 g/dL (31.0-37.0); MCV 87.6 fL (80.0-100.0); Mean Platelet Volume 7.1; Monocytes # (A) 0.9 k/uL (0-1.0); Monocytes % (A) 6 %; Neutrophils # (A) 11.4 k/uL (1.3-7.7); Neutrophils % (A) 83 %; Platelet Count 547 k/uL (150-450); RBC 3.74 m/uL (3.80-5.40); RDW 17.4 % (11.5-15.5); WBC 13.8 k/uL (3.8-10.6)
[2024-11-23 10:08] LABS: African American GFR (CKD) >90 (>60 ml/min/1.73 sqM); Anion Gap 12 mmol/L; Blood Urea Nitrogen 13 mg/dL (7-17); Calcium 8.7 mg/dL (8.4-10.2); Carbon Dioxide 25 mmol/L (22-30); Chloride 95 mmol/L (98-107); Glucose 92 mg/dL (74-99); Non-African American GFR(CKD) >90 (>60 ml/min/1.73 sqM); Potassium 3.8 mmol/L (3.5-5.1); Sodium 132 mmol/L (137-145)
--- NOTE | 2024-11-23 10:15 | XR ---
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 Findings: There is an NG tube within the stomach. There is a right lower lobe infiltrate and small effusion. The left lung base is clear. The bowel gas pattern is nonspecific. IMPRESSION: 1. NG tube within the stomach. 2. Infiltrate and effusion in the right lung base. [facility], Workstation: MARIA L, 11/23/2024 10:13 AM
[2024-11-23 10:25] LABS: Blood Urea Nitrogen 11.4 mg/dL (9.0-27.0); Calcium 8.6 mg/dL (8.7-10.3); Carbon Dioxide 26.3 mmol/L (21.6-31.8); Chloride 98 mmol/L (96-109); Glucose 84 mg/dL (70-110); Potassium 4.8 mmol/L (3.5-5.5); Sodium 138 mmol/L (135-145)
[2024-11-23] MEDS: GABAPENTIN 300 MG CAP PO SCH (11:05)
[2024-11-23] MEDS: SENNOSIDES 8.6 MG TAB PO SCH (11:23)
[2024-11-23] MEDS: LORATADINE 10 MG TAB PO SCH (11:23)
--- NOTE | 2024-11-23 11:46 | P.CNPUL ---
History of Present Illness Consult date: 11/23/24 Requesting physician: Meredith Rojas Reason for consult: other Chief complaint: Abdominal pain. History of present illness: Pulmonary consult dated November 23, 2024. 59-year-old female well-known to me. She presents to the emergency department, on November 22, at about 3 PM, complaining of generalized weakness, and abdominal pain. She apparently was in the hospital recently, for multiple problems including severe abdominal pain, related to opioid induced constipation, nausea, and vomiting. The patient also has a history of COPD, and has a history of non- small cell lung cancer, involving both lungs, with previous resections, done at [facility]. She unfortunately has recurrent lung cancer. She is not undergoing any treatment at this time. The patient is seen today in room 367. Her chest x-ray shows a right-sided pleural effusion, and a small left-sided pleural effusion. Her CT of the chest, shows no progression of her lung cancer. She is currently on 2 L. She is thought to have a possible bowel obstruction, and an NG tube will be placed. She is getting lactated Ringer's at 100 cc an hour. She is getting nasal O2 at 2 L. Current labs include white count 13.8, hemoglobin 9.6, hematocrit 32.8, and a platelet count of 547,000. Sodium 132, potassium 3.8, chloride 95, CO2 25, BUN 13, creatinine 0.55. Glucose was 92. Calcium is 8.7. Procalcitonin level was normal at 0.19. Viral screen was negative. CT scan of the abdomen and pelvis appears to show an obstruction, at the third portion of the duodenum, and significant dilatation of the duodenum, with a large fluid-filled loculated collection within the anterior abdomen. There is a small left pleural effusion. Review of Systems REVIEW OF SYSTEMS: CONSTITUTIONAL: Weakness. NEUROLOGIC: [ Negative.] HEENT: [ Negative.] CARDIAC: [Negative.] PULMONARY: Chronic dyspnea. GI: Abdominal pain. : [Negative.] RHEUMATOLOGIC: [ Negative.] IMMUNOLOGIC: [ Negative.] ENDOCRINE: [Negative. ] DERMATOLOGIC: [Negative.] Past Medical History Past Medical History: Cancer, COPD, GERD/Reflux, Hyperlipidemia, Pulmonary Embolus (PE) Additional Past Medical History / Comment(s): Current back and rib cancer. Ovari an cyst. Hx lung cancer 2019 w/wedge resection left upper lobe Oct 2019, hx PE 06/21/22, right lower lobe resection for lung cancer February 2020, had 4 rounds of chemo after that and was cancer free until February 2023. Started immunotherapy every 4 weeks. Last chemotherapy was April 2024. History of Any Multi-Drug Resistant Organisms: None Reported Past Surgical History: Orthopedic Surgery, Tonsillectomy Additional Past Surgical History / Comment(s): Right hand surgery, ectopic surgery, lung resection of left upper lobe and right lower lobe, 1994 had lymph nodes removed from right armpit. Past Anesthesia/Blood Transfusion Reactions: Motion Sickness Additional Past Anesthesia/Blood Transfusion Reaction / Comment(s): motion sickness in the car Past Psychological History: No Psychological Hx Reported Smoking Status: Former smoker Past Alcohol Use History: None Reported Past Drug Use History: None Reported - Past Family History Father Family Medical History: Cancer Mother Family Medical History: Cancer, Deep Vein Thrombosis (DVT), Pulmonary Embolus Medications and Allergies Home Medications Medication Instructions Recorded Confirmed Type Albuterol Inhaler [Ventolin Hfa 2 puff INHALATION RT-Q6H PRN 09/17/19 11/22/24 History Inhaler] Cetirizine HCl [Zyrtec] 10 mg PO DAILY 06/21/22 11/22/24 History Omeprazole Magnesium [PriLOSEC OTC] 20 mg PO BID 06/21/22 11/22/24 History Apixaban [Eliquis] 5 mg PO BID 30 Days #60 tab 06/24/22 11/22/24 Rx Ipratropium-Albuterol Nebulize 3 ml INHALATION RT-QID 30 Days 06/24/22 11/22/24 Rx [Duoneb 0.5 mg-3 mg/3 ml Soln] #300 ml Budesonide-Formot 160-4.5 Mcg 2 puff INHALATION RT-BID 02/28/23 11/22/24 History [Symbicort 160-4.5 Mcg Inhaler] HYDROcodone/APAP 10-325MG [Redkey 1 tab PO Q6HR PRN 01/05/24 11/22/24 History 10-325] Lidocaine/Menthol [Asperflex Max 1 patch TRANSDERM DAILY PRN 01/05/24 11/22/24 History 4%-1% Patch] Linaclotide [Linzess] 145 mcg PO DAILY PRN 01/05/24 11/22/24 History Ondansetron Odt [Zofran ODT] 8 mg PO Q6H PRN 01/05/24 11/22/24 History guaiFENesin [Mucinex] 600 mg PO Q12HR PRN #30 tab 01/08/24 11/22/24 Rx fentaNYL 50MCG/HR PATCH [Duragesic 1 patch TRANSDERM Q72H patch 10/20/24 11/22/24 Rx 50MCG/HR] Gabapentin [Neurontin] 300 mg PO TID #90 cap 11/17/24 11/22/24 Rx Sennosides [Senokot] 8.6 mg PO BID #90 tab 11/17/24 11/22/24 Rx Simethicone Chew [Mylicon Chew] 80 mg PO QID PRN #90 tab 11/17/24 11/22/24 Rx Allergies Allergy/AdvReac Type Severity Reaction Status Date / Time sulfamethoxazole Allergy Rash/Hives Verified 11/22/24 19:23 [From Bactrim] trimethoprim [From Bactrim] Allergy Rash/Hives Verified 11/22/24 19:23 Physical Exam Osteopathic Statement: *. No significant issues noted on an osteopathic st ructural exam other than those noted in the History and Physical/Consult. Vitals: Vital Signs Temp Pulse Pulse Resp BP BP Pulse Ox 11/23/24 11:24 118 H 11/23/24 09:17 97.6 F 121 H 16 130/88 100 11/23/24 06:58 122 H 18 121/80 99 11/23/24 06:29 115 H 18 134/96 100 11/23/24 03:20 131 H 18 125/89 93 L 11/23/24 00:36 129 H 18 124/88 94 L 11/22/24 21:00 120 H 18 108/74 11/22/24 17:07 129 H 18 131/80 98 11/22/24 15:32 98.1 F 130 H 20 118/74 96 Intake and Output 11/22/24 11/23/24 11/23/24 22:59 06:59 14:59 Other: Weight 49.895 kg No acute distress, oriented 3. Currently on 2 L. HEENT examination is grossly unremarkable. Mucous membranes are moist. No oral lesions. Neck supple. Full range of motion. No adenopathy thyromegaly or neck vein distention. Cardiovascular examination reveals regular rhythm rate. S1-S2 normal. No S3 or S4. No discernible murmur noted. Lungs reveal diminished breath sounds on the right with rhonchi. The left lung is essentially clear. Abdomen mildly distended, without bowel sounds. Tender on palpation. Extremities are intact. No cyanosis clubbing or edema. Skin is without rash or lesion. Neurologic examination is brief but nonfocal. Results - Laboratory Findings CBC and BMP: 11/23/24 09:35 11/23/24 09:35 PT/INR, D-dimer PT 12.4 sec (10.0-12.5) 11/22/24 16:17 INR 1.2 (<1.2) H 11/22/24 16:17 D-Dimer 1.64 mg/L FEU (<0.60) H 11/22/24 16:17 Abnormal lab findings: Abnormal Labs 11/22/24 11/22/24 11/22/24 16:17 16:17 16:17 WBC 12.4 H RBC Hgb 10.2 L Hct 33.9 L MCH MCHC 30.2 L RDW 17.3 H Plt Count 650 H Immature Gran # Neutrophils # 9.9 H Monocytes # Eosinophils # INR 1.2 H D-Dimer 1.64 H Sodium Chloride Anion Gap Glucose Calcium Alkaline Phosphatase Total Protein Albumin Urine Protein 1+ H Urine Ketones 4+ H Urine Bilirubin 1+ H Urine Mucus Rare H 11/22/24 11/23/24 11/23/24 16:17 02:36 02:36 WBC 15.6 H RBC 3.51 L Hgb 9.1 L Hct 30.5 L MCH MCHC 29.7 L RDW 17.4 H Plt Count 608 H Immature Gran # Neutrophils # 12.4 H Monocytes # 1.3 H Eosinophils # INR D-Dimer Sodium 131 L Chloride 91 L Anion Gap 13.70 H Glucose 68 L Calcium 8.6 L Alkaline Phosphatase 129 H Total Protein 5.7 L Albumin 3.3 L Urine Protein Urine Ketones Urine Bilirubin Urine Mucus 11/23/24 11/23/24 11/23/24 06:11 09:35 09:35 WBC 14.07 H 13.8 H RBC 3.56 L 3.74 L Hgb 8.9 L 9.6 L Hct 30.5 L 32.8 L MCH 25.0 L MCHC 29.2 L 29.2 L RDW 18.1 H 17.4 H Plt Count 600 H 547 H Immature Gran # 0.10 H Neutrophils # 11.10 H 11.4 H Monocytes # 1.42 H Eosinophils # 0 L INR D-Dimer Sodium 132 L Chloride 95 L Anion Gap Glucose Calcium Alkaline Phosphatase Total Protein Albumin Urine Protein Urine Ketones Urine Bilirubin Urine Mucus - Diagnostic Findings Chest x-ray: image reviewed CT scan - chest: image reviewed Assessment and Plan Assessment: Abdominal pain, rule out bowel obstruction. Recent hospitalization, secondary to opioid-induced constipation. History of COPD. History of lung cancer, with wedge resection left upper lobe 2018, wedge resection, right lower lobe, 2019. History of recurrent lung cancer with right-sided pleural effusion. History of pulmonary embolism. History of hyperlipidemia. History of gastroesophageal reflux disease. History of tobacco use. Plan: Plan dated November 23, 2024. The patient is stable from the pulmonary standpoint. She is on 2 L of oxygen. She is not having any respiratory difficulty or distress. She has a chronic right-sided pleural effusion. No need for thoracentesis. The patient has not had previous ultrasound of the right chest in the past, showing minimal fluid. We will continue to follow. Overall prognosis remains poor. The patient does have a history of recurrent non-small cell lung cancer. Currently, admitted with abdominal pain, and possible bowel obstruction. Time with Patient: Greater than 30
[2024-11-23] MEDS: BENZOCAINE SPRAY 1 CAN MUCOUS MEM PRN (13:28)
--- NOTE | 2024-11-23 13:37 | P.PN ---
Subjective Progress Note Date: 11/23/24 Hospital Course: A 59-year-old female with past medical history of stage IV lung cancer, COPD not on oxygen, GERD, hyperlipidemia, history of pulmonary embolism recently finished Eliquis, who presented to the ER with nausea, vomiting, abdominal pain. Patient has been having bowel movements but did report difficulties passing gas. She noted significant lower extremity edema started after she was discharged, affecting her ADLs. No fevers, chills, chest pain, shortness of breath. patient had recent admission for shortness of breath and hemoptysis. CTA was negative for PE. CT abdomen pelvis showed constipation and mild bowel wall thickening. Pulmonology, oncology, and general surgery follow-up with the patient. Hemoptysis resolved, Eliquis was resumed. Patient was started on bowel regimen and began having bowel movements. Patient was instructed to follow-up outpatient with PCP, oncology, pulmonology, and general surgery. Labs on admission show WBCs 12.4 with left shift, hemoglobin 10.2, MCV 85.5, platelets 650. PT 12.4, INR 1.2, PT 22, D-dimer 1.64. Sodium 131, potassium 3 .9, chloride 91, bicarb 26, BUN 14, creatinine 0.59, glucose 68. Urinalysis 4+ for ketones. Cepheid was negative. CT abdominal pelvis showed obstruction likely at the third portion of the duodenum with significant dilation of the duodenum, large fluid-filled loculated collection within the anterior abdomen, small left pleural effusion, thickened left adrenal gland. CTA chest showed stable appearance of the patient's right lung cancer, new left pleural effusion, subcarinal lymph node. Pulmonology consulted, no additional recommendations. Patient does have known history of right-sided pleural effusion, no plans for thoracentesis. Surgery consulted, patient is n.p.o., initially refused invasive gastric tube however later agreed, continue IV fluids, continue Zosyn, IR consult for drainage of abdominal fluid collection. Subjective: Patient was seen and examined at bedside, complains of fatigue, lower extremity edema, abdominal pain, difficulties passing gas Pertinent positives and negatives as discussed above, a complete review of systems was performed and all other systems are negative. Vitals Signs Reviewed. General: [nontoxic], [no distress], [appears at stated age], chronically ill- appearing Derm: [warm], [dry] Head: [atraumatic], [normocephalic], [symmetric] Eyes: [EOMI], [no lid lag], [anicteric sclera] Mouth: [no lip lesion], [mucus membranes moist] Cardiovascular: [S1S2 reg], [no murmur] Lungs: [CTA bilateral], [no rhonchi, no rales] , [no accessory muscle use] Abdominal: Generalized tenderness, no guarding, bowel sounds present Ext: [no gross muscle atrophy], [bilateral lower extremity edema], [no contractures] Neuro: [ CN II-XI grossly intact], [no focal neuro deficits] Psych: [Alert], [oriented], [appropriate affect] Data Reviewed Today: Pertinent Labs: Leukocytosis stable 13.8, hemoglobin stable 9.6, platelet count elevated 547, sodium 132, creatinine stable Assessment and Plan: Intractable nausea, vomiting obstruction likely at the third portion of the duodenum with significant dilation of the duodenum large fluid-filled loculated collection within the anterior abdomen -General Surgery following, appreciate recommendations -Continue IV Zosyn, continue IV fluids -Continue NG tube -Continue PPIs -N.p.o. -IR consulted for drainage Recurrent pleural effusions Chronic small right pleural effusion -Pulmonology consulted, no plans for thoracentesis Elevated D-dimer at 1.64, history of PE Patient does not report chest pain or shortness of breath CTA shows stable appearance of patient's right lung, new left pleural effusion, subcarinal lymph node, no PE noted Hypovolemic hyponatremia, likely secondary to vomiting Continue with IV fluids 100 mL/h Continue to monitor with BMP Leukocytosis, thrombocytosis likely reactive WBCs 12.4 with left shift, platelets 650 Continue to monitor CBC Normocytic anemia, at baseline Thrombocytosis Continue to monitor Sinus tachycardia, likely due to intractable vomiting, hypovolemia, and pain EKG independently interpreted as sinus tachycardia with ventricular rate of 123 bpm and QTc of 382 ms, poor R wave progression, with no acute ST-T wave changes suggestive of ischemia Cardiac monitoring Chronic: GERD Continue Protonix 40 mg IV BID Stage IV lung cancer Consult heme-onc DVT ppx: SCD Code status: Full code, patient wants to think about her CODE STATUS Anticipated discharge place: [facility] Anticipated discharge time: Pending clinical course Objective - Vital Signs Vital signs: Vital Signs Temp 97.6 F 11/23/24 12:07 Pulse 128 H 11/23/24 12:07 Resp 14 11/23/24 12:07 BP 119/81 11/23/24 12:07 Pulse Ox 94 L 11/23/24 12:07 FiO2 Intake & Output 11/22/24 11/23/24 11/23/24 18:59 06:59 18:59 Weight 49.895 kg Other: Voiding Method Bedside Commode - Labs CBC & Chem 7: 11/23/24 09:35 11/23/24 09:35 Labs: Abnormal Lab Results - Last 24 Hours (Table) 11/22/24 11/22/24 11/22/24 Range/Units 16:17 16:17 16:17 WBC 12.4 H (3.8-10.6) k/uL RBC (3.80-5.40) m/uL Hgb 10.2 L (11.4-16.0) gm/dL Hct 33.9 L (34.0-46.0) % MCH (27.0-32.0) pg MCHC 30.2 L (31.0-37.0) g/dL RDW 17.3 H (11.5-15.5) % Plt Count 650 H (150-450) k/uL Immature Gran # (0.00-0.04) X 10*3/uL Neutrophils # 9.9 H (1.3-7.7) k/uL Monocytes # (0-1.0) k/uL Eosinophils # (0.04-0.35) X 10*3/uL INR 1.2 H (<1.2) D-Dimer 1.64 H (<0.60) mg/L FEU Sodium (137-145) mmol/L Chloride (98-107) mmol/L Anion Gap (4.00-12.00) mmol/L Glucose (74-99) mg/dL Calcium (8.7-10.3) mg/dL Alkaline Phosphatase (38-126) U/L Total Protein (6.3-8.2) g/dL Albumin (3.5-5.0) g/dL Urine Protein 1+ H (Negative) Urine Ketones 4+ H (Negative) Urine Bilirubin 1+ H (Negative) Urine Mucus Rare H (None) /hpf 0111/23/24 11/23/24 Range/Units 16:17 02:36 02:36 WBC 15.6 H (3.8-10.6) k/uL RBC 3.51 L (3.80-5.40) m/uL Hgb 9.1 L (11.4-16.0) gm/dL Hct 30.5 L (34.0-46.0) % MCH (27.0-32.0) pg MCHC 29.7 L (31.0-37.0) g/dL RDW 17.4 H (11.5-15.5) % Plt Count 608 H (150-450) k/uL Immature Gran # (0.00-0.04) X 10*3/uL Neutrophils # 12.4 H (1.3-7.7) k/uL Monocytes # 1.3 H (0-1.0) k/uL Eosinophils # (0.04-0.35) X 10*3/uL INR (<1.2) D-Dimer (<0.60) mg/L FEU Sodium 131 L (137-145) mmol/L Chloride 91 L (98-107) mmol/L Anion Gap 13.70 H (4.00-12.00) mmol/L Glucose 68 L (74-99) mg/dL Calcium 8.6 L (8.7-10.3) mg/dL Alkaline Phosphatase 129 H (38-126) U/L Total Protein 5.7 L (6.3-8.2) g/dL Albumin 3.3 L (3.5-5.0) g/dL Urine Protein (Negative) Urine Ketones (Negative) Urine Bilirubin (Negative) Urine Mucus (None) /hpf 11/23/24 11/23/24 11/23/24 Range/Units 06:11 09:35 09:35 WBC 14.07 H 13.8 H (3.8-10.6) k/uL RBC 3.56 L 3.74 L (3.80-5.40) m/uL Hgb 8.9 L 9.6 L (11.4-16.0) gm/dL Hct 30.5 L 32.8 L (34.0-46.0) % MCH 25.0 L (27.0-32.0) pg MCHC 29.2 L 29.2 L (31.0-37.0) g/dL RDW 18.1 H 17.4 H (11.5-15.5) % Plt Count 600 H 547 H (150-450) k/uL Immature Gran # 0.10 H (0.00-0.04) X 10*3/uL Neutrophils # 11.10 H 11.4 H (1.3-7.7) k/uL Monocytes # 1.42 H (0-1.0) k/uL Eosinophils # 0 L (0.04-0.35) X 10*3/uL INR (<1.2) D-Dimer (<0.60) mg/L FEU Sodium 132 L (137-145) mmol/L Chloride 95 L (98-107) mmol/L Anion Gap (4.00-12.00) mmol/L Glucose (74-99) mg/dL Calcium (8.7-10.3) mg/dL Alkaline Phosphatase (38-126) U/L Total Protein (6.3-8.2) g/dL Albumin (3.5-5.0) g/dL Urine Protein (Negative) Urine Ketones (Negative) Urine Bilirubin (Negative) Urine Mucus (None) /hpf
[2024-11-23] MEDS: HYDROcodone/APAP 10-325MG 1 EACH TAB PO PRN (20:17)
[2024-11-24 07:35] LABS: Anisocytosis Slight; Basophils % (A) 0 %; Eosinophils % (A) 0 %; HCT 29.8 % (34.0-46.0); HGB 8.9 gm/dL (11.4-16.0); Hypochromasia Marked; Lymphocytes # (A) 1.2 k/uL (1.0-4.8); Lymphocytes % (A) 11 %; MCH 25.9 pg (25.0-35.0); MCHC 29.7 g/dL (31.0-37.0); Mean Platelet Volume 7.9; Monocytes # (A) 0.7 k/uL (0-1.0); Monocytes % (A) 7 %; Neutrophils # (A) 8.9 k/uL (1.3-7.7); Neutrophils % (A) 81 %; Platelet Count 534 k/uL (150-450); RBC 3.43 m/uL (3.80-5.40); RDW 17.4 % (11.5-15.5)
[2024-11-24 08:01] LABS: African American GFR (CKD) >90 (>60 ml/min/1.73 sqM); Anion Gap 10 mmol/L; Blood Urea Nitrogen 13 mg/dL (7-17); Calcium 8.8 mg/dL (8.4-10.2); Carbon Dioxide 29 mmol/L (22-30); Chloride 94 mmol/L (98-107); Glucose 78 mg/dL (74-99); Non-African American GFR(CKD) >90 (>60 ml/min/1.73 sqM); Potassium 3.8 mmol/L (3.5-5.1); Sodium 133 mmol/L (137-145)
[2024-11-24] MEDS: SIMETHICONE 80 MG CHEWABLE PO PRN (08:53)
--- NOTE | 2024-11-24 10:21 | P.PN ---
Progress Note - Text Progress Note Date: 11/24/24 No acute events overnight. Patient said she passed a small amount of gas. General appearance: alert, in no apparent distress Head exam: Present: atraumatic, normocephalic, normal inspection Respiratory exam: Present: decreased breath sounds, prolonged expiratory Cardiovascular Exam: Present: normal rhythm, tachycardia GI/Abdominal exam: Present: distended, tenderness (diffuse) Extremities exam: Present: pedal edema Neurological exam: Present: alert, oriented X3, CN II-XII intact Psychiatric exam: Present: normal affect, normal mood Skin exam: Present: warm, dry, intact, normal color. Absent: rash 59 year old female with Stage IV Lung Cancer presents with Small Bowel Obstruction and Complex Fluid Collection in the Anterior Abdomen -NPO -NGT-LIS -IV fluids -Zosyn -IR consult for drainage of abdominal fluid collection -If patients symptoms do not improve in the next 24-48 hours, will obtain a Small Bowel Follow Through Josue Garcia DO [facility] [phone]
--- NOTE | 2024-11-24 12:20 | P.PN ---
Subjective Progress Note Date: 11/24/24 Principal diagnosis: Abdominal pain. Pulmonary consult dated November 23, 2024. 59-year-old female well-known to me. She presents to the emergency department, on November 22, at about 3 PM, complaining of generalized weakness, and abdominal pain. She apparently was in the hospital recently, for multiple problems including severe abdominal pain, related to opioid induced constipation, nausea, and vomiting. The patient also has a history of COPD, and has a history of non-small cell lung cancer, involving both lungs, with previous resections, done at [facility]. She unfortunately has recurrent lung cancer. She is not undergoing any treatment at this time. The patient is seen today in room 367. Her chest x-ray shows a right-sided pleural effusion, and a small left- sided pleural effusion. Her CT of the chest, shows no progression of her lung cancer. She is currently on 2 L. She is thought to have a possible bowel obstruction, and an NG tube will be placed. She is getting lactated Ringer's at 100 cc an hour. She is getting nasal O2 at 2 L. Current labs include white count 13.8, hemoglobin 9.6, hematocrit 32.8, and a platelet count of 547,000. Sodium 132, potassium 3.8, chloride 95, CO2 25, BUN 13, creatinine 0.55. Glucose was 92. Calcium is 8.7. Procalcitonin level was normal at 0.19. Viral screen was negative. CT scan of the abdomen and pelvis appears to show an obstruction, at the third portion of the duodenum, and significant dilatation of the duodenum, with a large fluid-filled loculated collection within the anterior abdomen. There is a small left pleural effusion. Progress note dated November 24, 2024. 59-year-old female seen today in room 367. She was admitted with abdominal discomfort. She is currently resting comfortably in bed. No acute distress. She is getting adequate pain control. She is currently on room air. An NG tube was noted. She is getting saline at 10 cc an hour, and lactated Ringer's at 75 cc an hour. Procalcitonin level is 0.19. She continues on Zosyn. Current labs include a white count of 11, hemoglobin 8.9, hematocrit 29.8, platelet count of 534,000. Sodium 133, potassium 3.8, chlorides 94, CO2 29, BUN 13, creatinine 0.63. Blood cultures are negative. Chest x-ray is essentially unchanged. Objective - Vital Signs Vital signs: Vital Signs Temp 97.6 F 11/24/24 11:44 Pulse 123 H 11/24/24 11:44 Resp 14 11/24/24 11:44 BP 133/70 11/24/24 11:44 Pulse Ox 96 11/24/24 11:44 FiO2 Intake & Output 11/23/24 11/24/24 11/24/24 18:59 06:59 18:59 Intake Total 240 Output Total 500 400 Balance -500 240 -400 Weight 49.895 kg Intake: Oral 240 Output: Gastric Drainage 500 400 Other: Voiding Method Bedside Commode Bedside Commode Bedside Commode # Voids 2 - Exam No acute distress, oriented 3. Currently on room air. HEENT examination is grossly unremarkable. Mucous membranes are moist. No oral lesions. NG tube is noted. Neck supple. Full range of motion. No adenopathy thyromegaly or neck vein distention. Cardiovascular examination reveals regular rhythm rate. S1-S2 normal. No S3 or S4. No discernible murmur noted. Lungs reveal diminished breath sounds on the right with rhonchi. The left lung is essentially clear. Abdomen mildly distended, without bowel sounds. Tender on palpation. Extremities are intact. No cyanosis clubbing or edema. Skin is without rash or lesion. Neurologic examination is brief but nonfocal. - Labs CBC & Chem 7: 11/24/24 07:22 11/24/24 07:22 Labs: Abnormal Lab Results - Last 24 Hours (Table) 11/24/24 11/24/24 Range/Units 07:22 07:22 WBC 11.0 H (3.8-10.6) k/uL RBC 3.43 L (3.80-5.40) m/uL Hgb 8.9 L (11.4-16.0) gm/dL Hct 29.8 L (34.0-46.0) % MCHC 29.7 L (31.0-37.0) g/dL RDW 17.4 H (11.5-15.5) % Plt Count 534 H (150-450) k/uL Neutrophils # 8.9 H (1.3-7.7) k/uL Sodium 133 L (137-145) mmol/L Chloride 94 L (98-107) mmol/L Microbiology - Last 24 Hours (Table) 11/22/24 19:08 Blood Culture - Preliminary Blood Assessment and Plan Assessment: Abdominal pain, rule out bowel obstruction. Recent hospitalization, secondary to opioid-induced constipation. History of COPD. History of lung cancer, with wedge resection left upper lobe 2018, wedge resection, right lower lobe, 2019. History of recurrent lung cancer with right-sided pleural effusion. History of pulmonary embolism. History of hyperlipidemia. History of gastroesophageal reflux disease. History of tobacco use. Plan: Plan dated November 23, 2024. The patient is stable from the pulmonary standpoint. She is on 2 L of oxygen. She is not having any respiratory difficulty or distress. She has a chronic right-sided pleural effusion. No need for thoracentesis. The patient has not had previous ultrasound of the right chest in the past, showing minimal fluid. We will continue to follow. Overall prognosis remains poor. The patient does have a history of recurrent non-small cell lung cancer. Currently, admitted with abdominal pain, and possible bowel obstruction. Plan dated November 24, 2024. The patient is seen today in room 367. The patient is stable from the pulmonary standpoint. She is on room air. The patient is resting comfortably in bed. An NG tube has been placed. She is getting lactated Ringer's at 75 cc an hour, saline at 10 cc an hour. Labs, x-rays, medications are reviewed. The patient does have a history of recurrent lung cancer. Prognosis is guarded. We will continue to follow. Time with Patient: Less than 30
[2024-11-24] MEDS ORDERED: DEXTROSE 50% SYRINGE 50 ML IVP PRN (12:22)
--- NOTE | 2024-11-24 12:24 | P.PN ---
Subjective Progress Note Date: 11/24/24 Hospital Course: A 59-year-old female with past medical history of stage IV lung cancer, COPD not on oxygen, GERD, hyperlipidemia, history of pulmonary embolism recently finished Eliquis, who presented to the ER with nausea, vomiting, abdominal pain. Patient has been having bowel movements but did report difficulties passing gas. She noted significant lower extremity edema started after she was discharged, affecting her ADLs. No fevers, chills, chest pain, shortness of breath. patient had recent admission for shortness of breath and hemoptysis. CTA was negative for PE. CT abdomen pelvis showed constipation and mild bowel wall thickening. Pulmonology, oncology, and general surgery follow-up with the patient. Hemoptysis resolved, Eliquis was resumed. Patient was started on bowel regimen and began having bowel movements. Patient was instructed to follow-up outpatient with PCP, oncology, pulmonology, and general surgery. Labs on admission show WBCs 12.4 with left shift, hemoglobin 10.2, MCV 85.5, platelets 650. PT 12.4, INR 1.2, PT 22, D-dimer 1.64. Sodium 131, potassium 3 .9, chloride 91, bicarb 26, BUN 14, creatinine 0.59, glucose 68. Urinalysis 4+ for ketones. Cepheid was negative. CT abdominal pelvis showed obstruction likely at the third portion of the duodenum with significant dilation of the duodenum, large fluid-filled loculated collection within the anterior abdomen, small left pleural effusion, thickened left adrenal gland. CTA chest showed stable appearance of the patient's right lung cancer, new left pleural effusion, subcarinal lymph node. Pulmonology consulted, no additional recommendations. Patient does have known history of right-sided pleural effusion, no plans for thoracentesis. Surgery consulted, patient is n.p.o., initially refused invasive gastric tube however later agreed, continue IV fluids, continue Zosyn, IR consult for drainage of abdominal fluid collection. 11/24, started passing gas, nausea and vomiting improved. Continue IV fluids, antibiotics, plan for IR Pertinent Imaging: Imaging Subjective: Seen and examined at bedside, NG tube in place, complains of discomfort from NG tube, started passing gas, nausea and vomiting improved Pertinent positives and negatives as discussed above, a complete review of systems was performed and all other systems are negative. Vitals Signs Reviewed. General: [nontoxic], [no distress], [appears at stated age], chronically ill- appearing Derm: [warm], [dry] Head: [atraumatic], [normocephalic], [symmetric] Eyes: [EOMI], [no lid lag], [anicteric sclera] Mouth: [no lip lesion], [mucus membranes moist], NG in place Cardiovascular: [S1S2 reg], [no murmur] Lungs: [CTA bilateral], [no rhonchi, no rales] , [no accessory muscle use] Abdominal: Generalized tenderness, no guarding, bowel sounds present Ext: [no gross muscle atrophy], [bilateral lower extremity edema], [no con tractures] Neuro: [ CN II-XI grossly intact], [no focal neuro deficits] Psych: [Alert], [oriented], [appropriate affect] Data Reviewed Today: Pertinent Labs: Leukocytosis improving 11.0 today, hemoglobin stable 8.9, platelet count elevated 534, sodium improving 133, normal potassium, normal kidn ey function. Assessment and Plan:Intractable nausea, vomiting obstruction likely at the third portion of the duodenum with significant dilation of the duodenum large fluid-filled loculated collection within the anterior abdomen -General Surgery following, appreciate recommendations -Continue IV Zosyn, continue IV fluids -Continue NG tube -Continue PPIs -N.p.o. -IR consulted for drainage Urinary frequency -Bladder scan shows more than 1000, likely due to abdominal wall edema, straight cath with small amounts of urine Recurrent pleural effusions Chronic small right pleural effusion -Pulmonology consulted, no plans for thoracentesis Elevated D-dimer at 1.64, history of PE Patient does not report chest pain or shortness of breath CTA shows stable appearance of patient's right lung, new left pleural effusion, subcarinal lymph node, no PE noted Hypovolemic hyponatremia, likely secondary to vomiting Continue with IV fluids 100 mL/h Continue to monitor with BMP Leukocytosis, thrombocytosis likely reactive WBCs 12.4 with left shift, platelets 650 Continue to monitor CBC Normocytic anemia, at baseline Thrombocytosis Continue to monitor Sinus tachycardia, likely due to intractable vomiting, hypovolemia, and pain EKG independently interpreted as sinus tachycardia with ventricular rate of 123 bpm and QTc of 382 ms, poor R wave progression, with no acute ST-T wave changes suggestive of ischemia Cardiac monitoring Chronic: GERD Continue Protonix 40 mg IV BID Stage IV lung cancer Consult heme-onc DVT ppx: SCD Code status: Full code, patient wants to think about her CODE STATUS Anticipated discharge place: TBD Anticipated discharge time: Pending clinical course Objective - Vital Signs Vital signs: Vital Signs Temp 97.6 F 11/24/24 11:44 Pulse 123 H 11/24/24 11:44 Resp 14 11/24/24 11:44 BP 133/70 11/24/24 11:44 Pulse Ox 96 11/24/24 11:44 FiO2 Intake & Output 11/23/24 11/24/24 11/24/24 18:59 06:59 18:59 Intake Total 240 Output Total 500 400 Balance -500 240 -400 Weight 49.895 kg Intake: Oral 240 Output: Gastric Drainage 500 400 Other: Voiding Method Bedside Commode Bedside Commode Bedside Commode # Voids 2 - Labs CBC & Chem 7: 11/24/24 07:22 11/24/24 07:22 Labs: Abnormal Lab Results - Last 24 Hours (Table) 11/24/24 11/24/24 Range/Units 07:22 07:22 WBC 11.0 H (3.8-10.6) k/uL RBC 3.43 L (3.80-5.40) m/uL Hgb 8.9 L (11.4-16.0) gm/dL Hct 29.8 L (34.0-46.0) % MCHC 29.7 L (31.0-37.0) g/dL RDW 17.4 H (11.5-15.5) % Plt Count 534 H (150-450) k/uL Neutrophils # 8.9 H (1.3-7.7) k/uL Sodium 133 L (137-145) mmol/L Chloride 94 L (98-107) mmol/L Microbiology - Last 24 Hours (Table) 11/22/24 19:08 Blood Culture - Preliminary Blood
[2024-11-24 20:17] LABS: Glucose,Whole Blood 72 mg/dL (70-110)
[2024-11-24] MEDS ORDERED: NALOXONE 0.4 MG/ML 1 ML VIAL IV PRN (21:23)
[2024-11-24] MEDS: HYDROmorphone PCA 10 MG/50 ML BAG IV PRN (22:56)
[2024-11-24 23:50] LABS: Glucose,Whole Blood 73 mg/dL (70-110)
[2024-11-25 06:00] LABS: Glucose,Whole Blood 62 mg/dL (70-110)
[2024-11-25] MEDS: DEXTROSE 50% SYRINGE 50 ML IVP PRN (06:09)
[2024-11-25 06:28] LABS: Glucose,Whole Blood 128 mg/dL (70-110)
[2024-11-25 06:31] LABS: Anisocytosis Slight; Basophils % (A) 0 %; Eosinophils % (A) 0 %; HCT 28.9 % (34.0-46.0); HGB 8.5 gm/dL (11.4-16.0); Hypochromasia Marked; Lymphocytes # (A) 1.4 k/uL (1.0-4.8); Lymphocytes % (A) 13 %; MCH 25.7 pg (25.0-35.0); MCHC 29.5 g/dL (31.0-37.0); Monocytes # (A) 0.6 k/uL (0-1.0); Monocytes % (A) 6 %; Neutrophils # (A) 8.6 k/uL (1.3-7.7); Neutrophils % (A) 80 %; Platelet Count 562 k/uL (150-450); Poikilocytosis Slight; RBC 3.32 m/uL (3.80-5.40); RDW 17.5 % (11.5-15.5); WBC 10.8 k/uL (3.8-10.6)
[2024-11-25 06:34] LABS: African American GFR (CKD) >90 (>60 ml/min/1.73 sqM); Anion Gap 8 mmol/L; Blood Urea Nitrogen 12 mg/dL (7-17); Carbon Dioxide 31 mmol/L (22-30); Chloride 95 mmol/L (98-107); Glucose 62 mg/dL (74-99); Non-African American GFR(CKD) >90 (>60 ml/min/1.73 sqM); Potassium 3.8 mmol/L (3.5-5.1); Sodium 134 mmol/L (137-145)
[2024-11-25] MEDS: DEXTROSE 5%-0.9% NACL 1,000 ML IV SCH (10:32)
--- NOTE | 2024-11-25 11:43 | P.PN ---
Subjective Progress Note Date: 11/25/24 Hospital Course: A 59-year-old female with past medical history of stage IV lung cancer, COPD not on oxygen, GERD, hyperlipidemia, history of pulmonary embolism recently finished Eliquis, who presented to the ER with nausea, vomiting, abdominal pain. Patient has been having bowel movements but did report difficulties passing gas. She noted significant lower extremity edema started after she was discharged, affecting her ADLs. No fevers, chills, chest pain, shortness of breath. patient had recent admission for shortness of breath and hemoptysis. CTA was negative for PE. CT abdomen pelvis showed constipation and mild bowel wall thickening. Pulmonology, oncology, and general surgery follow-up with the patient. Hemoptysis resolved, Eliquis was resumed. Patient was started on bowel regimen and began having bowel movements. Patient was instructed to follow-up outpatient with PCP, oncology, pulmonology, and general surgery. Labs on admission show WBCs 12.4 with left shift, hemoglobin 10.2, MCV 85.5, platelets 650. PT 12.4, INR 1.2, PT 22, D-dimer 1.64. Sodium 131, potassium 3 .9, chloride 91, bicarb 26, BUN 14, creatinine 0.59, glucose 68. Urinalysis 4+ for ketones. Cepheid was negative. CT abdominal pelvis showed obstruction likely at the third portion of the duodenum with significant dilation of the duodenum, large fluid-filled loculated collection within the anterior abdomen, small left pleural effusion, thickened left adrenal gland. CTA chest showed stable appearance of the patient's right lung cancer, new left pleural effusion, subcarinal lymph node. Pulmonology consulted, no additional recommendations. Patient does have known history of right-sided pleural effusion, no plans for thoracentesis. Surgery consulted, patient is n.p.o., initially refused invasive gastric tube however later agreed, continue IV fluids, continue Zosyn, IR consult for drainage of abdominal fluid collection. 11/24, started passing gas, nausea and vomiting improved. Continue IV fluids, antibiotics, plan for IR 11/25 afternoon. Patient does have significant lower extremity edema, explained that she will be diuresed once her obstruction is resolved and she is back on diet. Pertinent Imaging: No new imaging Subjective: Patient does not feel any improvement, no bowel movements, has not passed gas 11/25, denies nausea or vomiting, shared that she is very tired from being sick all the time Pertinent positives and negatives as discussed above, a complete review of sys tems was performed and all other systems are negative. Vitals Signs Reviewed. General: [nontoxic], [no distress], [appears at stated age], chronically ill- appearing Derm: [warm], [dry] Head: [atraumatic], [normocephalic], [symmetric] Eyes: [EOMI], [no lid lag], [anicteric sclera] Mouth: [no lip lesion], [mucus membranes moist], NG in place, suctioning dark brown/greenish Cardiovascular: [S1S2 reg], [no murmur] Lungs: [CTA bilateral], [no rhonchi, no rales] , [no accessory muscle use], decreased breath sounds bilaterally Abdominal: Generalized tenderness, no guarding, bowel sounds present, significantly diminished Ext: [no gross muscle atrophy], [bilateral lower extremity edema up to thighs], [no contractures] Neuro: [ CN II-XI grossly intact], [no focal neuro deficits] Psych: [Alert], [oriented], [appropriate affect] Data Reviewed Today: Pertinent Labs: Lab work WBC 10.8, hemoglobin 8.5, platelet count 562, sodium to 134, potassium normal, BUN and creatinine normal, glucose was 60 2 in the morning Assessment and Plan: Intractable nausea, vomiting obstruction likely at the third portion of the duodenum with significant dilation of the duodenum large fluid-filled loculated collection within the anterior abdomen -General Surgery following, appreciate recommendations -Continue IV Zosyn, continue IV fluids -Continue NG tube -Continue PPIs -N.p.o. -IR consulted for drainage Urinary frequency -Bladder scan shows more than 1000, likely due to abdominal wall edema, straight cath with small amounts of urine Recurrent pleural effusions Chronic small right pleural effusion -Pulmonology consulted, no plans for thoracentesis Elevated D-dimer at 1.64, history of PE Patient does not report chest pain or shortness of breath CTA shows stable appearance of patient's right lung, new left pleural effusion, subcarinal lymph node, no PE noted Hypovolemic hyponatremia, likely secondary to vomiting Hypoglycemia in the settings of n.p.o. Switch fluid to D5 normal saline due to hypoglycemia, continue Accu-Cheks, hypoglycemia protocol Continue to monitor with BMP Leukocytosis, thrombocytosis likely reactive Improving Continue to monitor CBC Normocytic anemia, at baseline Thrombocytosis Continue to monitor Sinus tachycardia, likely due to intractable vomiting, hypovolemia, and pain EKG independently interpreted as sinus tachycardia with ventricular rate of 123 bpm and QTc of 382 ms, poor R wave progression, with no acute ST-T wave changes suggestive of ischemia Cardiac monitoring Chronic: GERD Continue Protonix 40 mg IV BID Stage IV lung cancer Consult heme-onc DVT ppx: SCD Code status: Full code, patient wants to think about her CODE STATUS Anticipated discharge place: TBD Anticipated discharge time: Pending clinical course Objective - Vital Signs Vital signs: Vital Signs Temp 97.7 F 11/25/24 08:12 Pulse 112 H 11/25/24 08:49 Resp 14 11/25/24 08:12 BP 125/78 11/25/24 08:12 Pulse Ox 94 L 11/25/24 08:12 FiO2 Intake & Output 11/24/24 11/25/24 11/25/24 18:59 06:59 18:59 Output Total 400 450 400 Balance -400 -450 -400 Output: Gastric Drainage 400 450 400 Other: Voiding Method Bedside Commode Diaper # Voids 1 - Labs CBC & Chem 7: 11/25/24 05:29 11/25/24 05:29 Labs: Abnormal Lab Results - Last 24 Hours (Table) 11/25/24 11/25/24 11/25/24 Range/Units 05:29 05:29 05:58 WBC 10.8 H (3.8-10.6) k/uL RBC 3.32 L (3.80-5.40) m/uL Hgb 8.5 L (11.4-16.0) gm/dL Hct 28.9 L (34.0-46.0) % MCHC 29.5 L (31.0-37.0) g/dL RDW 17.5 H (11.5-15.5) % Plt Count 562 H (150-450) k/uL Neutrophils # 8.6 H (1.3-7.7) k/uL Sodium 134 L (137-145) mmol/L Chloride 95 L (98-107) mmol/L Carbon Dioxide 31 H (22-30) mmol/L Glucose 62 L (74-99) mg/dL POC Glucose (mg/dL) 62 L (70-110) mg/dL 11/25/24 Range/Units 06:27 WBC (3.8-10.6) k/uL RBC (3.80-5.40) m/uL Hgb (11.4-16.0) gm/dL Hct (34.0-46.0) % MCHC (31.0-37.0) g/dL RDW (11.5-15.5) % Plt Count (150-450) k/uL Neutrophils # (1.3-7.7) k/uL Sodium (137-145) mmol/L Chloride (98-107) mmol/L Carbon Dioxide (22-30) mmol/L Glucose (74-99) mg/dL POC Glucose (mg/dL) 128 H (70-110) mg/dL Microbiology - Last 24 Hours (Table) 11/22/24 19:08 Blood Culture - Preliminary Blood
--- NOTE | 2024-11-25 12:39 | US ---
EXAMINATION TYPE: US viseral fluid drainage DATE OF EXAM: 11/25/2024 12:22 PM CLINICAL INDICATION:Female, 59 years old with history of abdominal fluid collection. COMPARISON: 11/22/2024 TECHNIQUE: Ultrasound-guided abdominal tube insertion. PROCEDURE: Informed consent was obtained. Safe access in the abdomen was identified via ultrasound. The safest a llowable access to the to the fluid collection was noted in the right lower abdomen. The patient was then prepped and draped in the usual sterile fashion. Local anesthesia was provided. Trocar technique was used with a 8-Guamanian pigtail catheter placed into abdominal fluid collection.. Placement was co nfirmed with ultrasound guidance. Approximately 100 mL was drained and sent to the lab for analysis. A water sealed container was then hooked up. The tubing was affixed to the skin. There was no blood loss and post-procedure hemostasi s was achieved. The patient tolerated the procedure well without complication. Patient was transfer red to the general medical floor in stable condition. IMPRESSION: Successful 8 Guamanian tube placement within the pleural space which was left in place. [facility], , 11/25/2024 12:37 PM
--- NOTE | 2024-11-25 14:15 | P.PN ---
Subjective Progress Note Date: 11/25/24 SURGICAL PROGRESS NOTE CHIEF COMPLAINT: Abdominal pain HISTORY OF PRESENT ILLNESS: Patient sitting at bedside chair. She was having flatus yesterday. NG tube with 400 mL bilious output and 200 mL output this morning. She has fluid collection in the abdomen IR did place a drain in abdomen today with 2.6 L of dark red tea like colored fluid removed. Fluid was sent for cytology. PHYSICAL EXAM: VITAL SIGNS: Reviewed. GENERAL: Well-developed in no acute distress. ABDOMEN: Is less firm. Mildly distended. Diffuse tenderness. NEUROLOGIC: Alert and oriented. Cranial nerves II through XII grossly intact. ASSESSMENT: 1. Small bowel obstruction and complex fluid collection in the anterior abdomen 2. Stage IV lung cancer PLAN: -Status post drain placement by IR service -Fluid sent for cytology -Continue NG tube to low intermittent suction -Keep patient n.p.o. except for ice chips -Continue IV fluids -Continue Zosyn Physician Quality Improvement Consultant note has been reviewed by physician. Signing provider agrees with the documented findings, assessment, and plan of care. Attestation Patient seen and examined at bedside. IR drainage of fluid collection in the abdomen performed today. Drain left in place. Patient denies having bowel function today but did have flatus yesterday. NG tube with decreasing output. Patient can have ice chips. Patient nervous about removing NG tube until more bowel function as she does not want this replaced. Chay Phillips, DO Objective - Vital Signs Vital signs: Vital Signs Temp 97.3 F L 11/25/24 13:42 Pulse 125 H 11/25/24 13:42 Resp 14 11/25/24 13:42 BP 139/85 11/25/24 13:42 Pulse Ox 100 11/25/24 13:42 FiO2 Intake & Output 11/24/24 11/25/24 11/25/24 18:59 06:59 18:59 Output Total 400 450 520 Balance -400 -450 -520 Output: Gastric Drainage 400 450 400 Drainage 120 Abdomen 120 Other: Voiding Method Bedside Commode Diaper # Voids 1 - Labs CBC & Chem 7: 11/25/24 05:29 11/25/24 05:29 Labs: Abnormal Lab Results - Last 24 Hours (Table) 11/25/24 11/25/24 11/25/24 Range/Units 05:29 05:29 05:58 WBC 10.8 H (3.8-10.6) k/uL RBC 3.32 L (3.80-5.40) m/uL Hgb 8.5 L (11.4-16.0) gm/dL Hct 28.9 L (34.0-46.0) % MCHC 29.5 L (31.0-37.0) g/dL RDW 17.5 H (11.5-15.5) % Plt Count 562 H (150-450) k/uL Neutrophils # 8.6 H (1.3-7.7) k/uL Sodium 134 L (137-145) mmol/L Chloride 95 L (98-107) mmol/L Carbon Dioxide 31 H (22-30) mmol/L Glucose 62 L (74-99) mg/dL POC Glucose (mg/dL) 62 L (70-110) mg/dL 11/25/24 Range/Units 06:27 WBC (3.8-10.6) k/uL RBC (3.80-5.40) m/uL Hgb (11.4-16.0) gm/dL Hct (34.0-46.0) % MCHC (31.0-37.0) g/dL RDW (11.5-15.5) % Plt Count (150-450) k/uL Neutrophils # (1.3-7.7) k/uL Sodium (137-145) mmol/L Chloride (98-107) mmol/L Carbon Dioxide (22-30) mmol/L Glucose (74-99) mg/dL POC Glucose (mg/dL) 128 H (70-110) mg/dL Microbiology - Last 24 Hours (Table) 11/22/24 19:08 Blood Culture - Preliminary Blood
--- NOTE | 2024-11-25 14:38 | P.PN ---
Subjective Progress Note Date: 11/25/24 59-year-old female well-known to me. She presents to the emergency department, on November 22, at about 3 PM, complaining of generalized weakness, and abdominal pain. She apparently was in the hospital recently, for multiple problems including severe abdominal pain, related to opioid induced constipation, nausea, and vomiting. The patient also has a history of COPD, and has a history of non- small cell lung cancer, involving both lungs, with previous resections, done at [facility]. She unfortunately has recurrent lung cancer. She is not undergoing any treatment at this time. The patient is seen today in room 367. Her chest x-ray shows a right-sided pleural effusion, and a small left-sided pleural effusion. Her CT of the chest, shows no progression of her lung cancer. She is currently on 2 L. She is thought to have a possible bowel obstruction, and an NG tube will be placed. She is getting lactated Ringer's at 100 cc an hour. She is getting nasal O2 at 2 L. Current labs include white count 13.8, hemoglobin 9.6, hematocrit 32.8, and a platelet count of 547,000. Sodium 132, potassium 3.8, chloride 95, CO2 25, BUN 13, creatinine 0.55. Glucose was 92. Calcium is 8.7. Procalcitonin level was normal at 0.19. Viral screen was negative. CT scan of the abdomen and pelvis appears to show an obstruction, at the third portion of the duodenum, and significant dilatation of the duodenum, with a large fluid-filled loculated collection within the anterior abdomen. There is a small left pleural effusion. Progress note dated November 24, 2024. 59-year-old female seen today in room 367. She was admitted with abdominal discomfort. She is currently resting comfortably in bed. No acute distress. She is getting adequate pain control. She is currently on room air. An NG tube was noted. She is getting saline at 10 cc an hour, and lactated Ringer's at 75 cc an hour. Procalcitonin level is 0.19. She continues on Zosyn. Current labs include a white count of 11, hemoglobin 8.9, hematocrit 29.8, platelet count of 534,000. Sodium 133, potassium 3.8, chlorides 94, CO2 29, BUN 13, creatinine 0.63. Blood cultures are negative. Chest x-ray is essentially unchanged. On 11/25/2024, the patient is being seen for a follow-up. The patient has an NG tube in place for small bowel obstruction the patient has also a complex fluid collection in the anterior abdomen as revealed on the CAT scan of the abdomen pelvis was obtained on 11/22/2024. Specifically, the patient has obstruction likely at the level of the third portion of the duodenum with significant dilata tion of the duodenum. Large fluid filled loculated collection is also present in the anterior abdomen with a small left-sided pleural effusion. The proximal bowel loops are dilated and there is a large loculated fluid collection displacing normal-appearing small bowel loops and colon. The transition point is possibly the proximal jejunum. CT of the chest was also done on 11/22/2024 revealing a small left-sided pleural effusion. No evidence of any pulmonary embolism. There was a subcarinal lymph node in addition to some consolidation involving the right lung base. The patient has an NG tube in place and total amount of output has been 400 cc for yesterday and 200 cc this morning. [facility] of a drain in the abdomen with a total of 2.6 L of dark red tea colored fluid being removed and the fluid was sent for cytology. The patient remains on IV Zosyn. The patient remains on IV fluids. NG tube attached to low intermittent suction.Labs from today showed a white cell count of 10.8 with a hemoglobin 8.5 and a platelet count of 562. The sodium is at 134, potassium is at 3.8, BUN is 12 with a creatinine of 0.6. Objective - Vital Signs Vital signs: Vital Signs Temp 97.7 F 11/25/24 08:12 Pulse 112 H 11/25/24 08:49 Resp 14 11/25/24 08:12 BP 125/78 11/25/24 08:12 Pulse Ox 94 L 11/25/24 08:12 FiO2 Intake & Output 11/24/24 11/25/24 11/25/24 18:59 06:59 18:59 Output Total 400 450 400 Balance -400 -450 -400 Output: Gastric Drainage 400 450 400 Other: Voiding Method Bedside Commode Diaper # Voids 1 - Exam No acute distress, oriented 3. Currently on room air. HEENT examination is grossly unremarkable. Mucous membranes are moist. No oral lesions. NG tube is noted. Neck supple. Full range of motion. No adenopathy thyromegaly or neck vein distention. Cardiovascular examination reveals regular rhythm rate. S1-S2 normal. No S3 or S4. No discernible murmur noted. Lungs reveal diminished breath sounds on the right with rhonchi. The left lung is essentially clear. Abdomen mildly distended, without bowel sounds. Tender on palpation. Extremities are intact. No cyanosis clubbing or edema. Skin is without rash or lesion. Neurologic examination is brief but nonfocal. - Labs CBC & Chem 7: 11/25/24 05:29 11/25/24 05:29 Labs: Abnormal Lab Results - Last 24 Hours (Table) 11/25/24 11/25/24 11/25/24 Range/Units 05:29 05:29 05:58 WBC 10.8 H (3.8-10.6) k/uL RBC 3.32 L (3.80-5.40) m/uL Hgb 8.5 L (11.4-16.0) gm/dL Hct 28.9 L (34.0-46.0) % MCHC 29.5 L (31.0-37.0) g/dL RDW 17.5 H (11.5-15.5) % Plt Count 562 H (150-450) k/uL Neutrophils # 8.6 H (1.3-7.7) k/uL Sodium 134 L (137-145) mmol/L Chloride 95 L (98-107) mmol/L Carbon Dioxide 31 H (22-30) mmol/L Glucose 62 L (74-99) mg/dL POC Glucose (mg/dL) 62 L (70-110) mg/dL 11/25/24 Range/Units 06:27 WBC (3.8-10.6) k/uL RBC (3.80-5.40) m/uL Hgb (11.4-16.0) gm/dL Hct (34.0-46.0) % MCHC (31.0-37.0) g/dL RDW (11.5-15.5) % Plt Count (150-450) k/uL Neutrophils # (1.3-7.7) k/uL Sodium (137-145) mmol/L Chloride (98-107) mmol/L Carbon Dioxide (22-30) mmol/L Glucose (74-99) mg/dL POC Glucose (mg/dL) 128 H (70-110) mg/dL Microbiology - Last 24 Hours (Table) 11/22/24 19:08 Blood Culture - Preliminary Blood Assessment and Plan Plan: Abdominal pain with small bowel obstruction and a large loculated fluid collection displacing the normal appearing small bowel loops and colon with a transition zone appearing to be within the proximal jejunum. Patient has an NG tube for decompression. At the same time, the patient underwent an IR guided placement of a drainage catheter in regards to the abdominal fluid collection. A total of 2.4 L of fluid was immediately drained. Abdominal pain, secondary to small bowel obstruction Stage IV lung cancer. 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 Previously maintained on chemotherapy with Alimta and carboplatin, could not tolerate side effects. PET scan taken on 07/25/2024 showing overall mixed response to therapy with slightly increased radiotracer activity throughout the right pleural and anterior right seventh rib with mild decrease in radiotracer activity within the right 10th rib and posterior costophrenic pleural region. Development of nonspecific left anterior peritoneal stranding changes with mild FDG uptake, could represent early perit leon metastasis versus other etiologies such as infectious/inflammatory nature. Currently on Opdivo, has received 2 infusions so far. She has a known history of lung cancer originally diagnosed with wedge resection of the left upper lobe October 2019, as well as, a right lung resection in February 2021. A follow-up PET scan in February 2023 indicating possible disease recurrence. 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 Her established oncologist is Dr. Castillo. Previous hospitalization, secondary to opioid-induced constipation. Advanced COPD with an FEV1 of 31% of predicted The patient has ongoing volume loss and extensive pleural-parenchymal opacities throughout the right hemithorax and the patient has a pleural rind in the lower lung there is a progressively increasing since 2022. There is also confluent lower lobe opacities that have increased since 2022 and this is consistent with progression of her underlying non-small cell lung cancer Chronic hypoxic respiratory failure maintained on oxygen 2 L/min nasal cannula History of pulmonary embolism, maintained on anticoagulation with Eliquis History of hyperlipidemia. History of gastroesophageal reflux disease. History of tobacco use. Plan: Keep the patient oxygen 2 L/min nasal cannula Keep the NG tube in place for small bowel decompression IR guided drainage catheter was inserted with total of 2.4 L of fluid being evacuated Passing flatus Keep the patient n.p.o. except for ice chips IV fluids IV Zosyn Send the abdominal fluid for cytology and cultures General surgery is on the case Overall prognosis remains poor and will continue to follow
[2024-11-25 16:33] LABS: Glucose,Whole Blood 69 mg/dL (70-110)
[2024-11-25 17:18] LABS: Glucose,Whole Blood 114 mg/dL (70-110)
[2024-11-25 19:38] LABS: Glucose, Body Fluid 21 mg/dL; Total Protein, Body Fluid >3600 mg/dL
[2024-11-25 19:39] LABS: Amylase,Body Fluid 707 U/L
[2024-11-25 20:00] LABS: Glucose,Whole Blood 101 mg/dL (70-110)
[2024-11-25 20:38] LABS: Appearance,BF Bloody (Clear)
[2024-11-25 23:52] LABS: Glucose,Whole Blood 77 mg/dL (70-110)
[2024-11-26 05:57] LABS: Glucose,Whole Blood 77 mg/dL (70-110)
[2024-11-26 08:28] LABS: Anisocytosis Slight; Basophils # (A) 0.1 k/uL (0-0.2); Basophils % (A) 1 %; Eosinophils % (A) 0 %; HCT 29.2 % (34.0-46.0); HGB 8.3 gm/dL (11.4-16.0); Hypochromasia Marked; Lymphocytes # (A) 1.2 k/uL (1.0-4.8); Lymphocytes % (A) 11 %; MCH 24.8 pg (25.0-35.0); MCHC 28.2 g/dL (31.0-37.0); MCV 87.9 fL (80.0-100.0); Monocytes # (A) 0.9 k/uL (0-1.0); Monocytes % (A) 8 %; Neutrophils # (A) 8.8 k/uL (1.3-7.7); Neutrophils % (A) 79 %; Platelet Count 451 k/uL (150-450); RBC 3.33 m/uL (3.80-5.40); RDW 17.3 % (11.5-15.5); WBC 11.1 k/uL (3.8-10.6)
[2024-11-26 08:39] LABS: African American GFR (CKD) >90 (>60 ml/min/1.73 sqM); Anion Gap 3 mmol/L; Blood Urea Nitrogen 8 mg/dL (7-17); Calcium 7.9 mg/dL (8.4-10.2); Carbon Dioxide 34 mmol/L (22-30); Chloride 96 mmol/L (98-107); Glucose 93 mg/dL (74-99); Non-African American GFR(CKD) >90 (>60 ml/min/1.73 sqM); Sodium 133 mmol/L (137-145)
--- NOTE | 2024-11-26 09:34 | P.PN ---
Subjective Progress Note Date: 11/26/24 Principal diagnosis: Hospital Course: A 59-year-old female with past medical history of stage IV lung cancer, COPD not on oxygen, GERD, hyperlipidemia, history of pulmonary embolism recently finished Eliquis, who presented to the ER with nausea, vomiting, abdominal pain. Patient has been having bowel movements but did report difficulties passing gas. She noted significant lower extremity edema started after she was discharged, affecting her ADLs. No fevers, chills, chest pain, shortness of breath. patient had recent admission for shortness of breath and hemoptysis. CTA was negative for PE. CT abdomen pelvis showed constipation and mild bowel wall thickening. Pulmonology, oncology, and general surgery follow-up with the patient. Hemoptysis resolved, Eliquis was resumed. Patient was started on bowel regimen and began having bowel movements. Patient was instructed to follow-up outpatient with PCP, oncology, pulmonology, and general surgery. Labs on admission show WBCs 12.4 with left shift, hemoglobin 10.2, MCV 85.5, platelets 650. PT 12.4, INR 1.2, PT 22, D-dimer 1.64. Sodium 131, potassium 3.9, chloride 91, bicarb 26, BUN 14, creatinine 0.59, glucose 68. Urinalysis 4+ for ketones. Cepheid was negative. CT abdominal pelvis showed obstruction likely at the third portion of the duodenum with significant dilation of the duodenum, large fluid-filled loculated collection within the anterior abdomen, small left pleural effusion, thickened left adrenal gland. CTA chest showed stable appearance of the patient's right lung cancer, new left pleural effusion, subcarinal lymph node. Pulmonology consulted, no additional recommendations. Patient does have known history of right-sided pleural effusion, no plans for thoracentesis. Surgery consulted, patient is n.p.o., initially refused invasive gastric tube however later agreed, continue IV fluids, continue Zosyn, IR consult for drainage of abdominal fluid collection. 11/24, started passing gas, nausea and vomiting improved. S/p IR drainage on 11/25 with drain left in place. Patient seen and examined. Had IR drainage yesterday. She is currently sitting in the chair denies any complaints NG tube is attached to low intermittent suction. Reports that her lower extremity swelling has improved Objective - Vital Signs Vital signs: Vital Signs Temp 97.5 F L 11/26/24 03:16 Pulse 112 H 11/26/24 08:37 Resp 18 11/26/24 08:30 BP 130/83 11/26/24 08:30 Pulse Ox 100 11/26/24 08:30 FiO2 Intake & Output 11/25/24 11/26/24 11/26/24 18:59 06:59 18:59 Output Total 520 350 Balance -520 -350 Weight 58.3 kg Output: Gastric Drainage 400 Drainage 120 Abdomen 120 Urine 350 Other: Voiding Method Diaper Bedside Commode Diaper # Voids 1 1 - Exam General: [nontoxic], [no distress], [appears at stated age], chronically ill- appearing, female Derm: [warm], [dry] Head: [atraumatic], [normocephalic], [symmetric] Eyes: [EOMI], [no lid lag], [anicteric sclera] Mouth: [no lip lesion], [mucus membranes moist], NG in place, suctioning dark brown/greenish Cardiovascular: [S1S2 reg], [no murmur] Lungs: [CTA bilateral], [no rhonchi, no rales] , [no accessory muscle use], decreased breath sounds bilaterally Abdominal: Generalized tenderness, there is a drain on the right side of her abdomen. Ext: [no gross muscle atrophy], 1+ pitting lower extremity edema Neuro: moving extremity spontaneously Psych: [Alert], [oriented], [appropriate affect] - Labs CBC & Chem 7: 11/26/24 07:49 11/26/24 07:49 Labs: Abnormal Lab Results - Last 24 Hours (Table) 11/25/24 11/25/24 11/25/24 Range/Units 12:30 16:31 17:06 WBC (3.8-10.6) k/uL RBC (3.80-5.40) m/uL Hgb (11.4-16.0) gm/dL Hct (34.0-46.0) % MCH (25.0-35.0) pg MCHC (31.0-37.0) g/dL RDW (11.5-15.5) % Plt Count (150-450) k/uL Neutrophils # (1.3-7.7) k/uL Sodium (137-145) mmol/L Potassium (3.5-5.1) mmol/L Chloride (98-107) mmol/L Carbon Dioxide (22-30) mmol/L POC Glucose (mg/dL) 69 L 114 H (70-110) mg/dL Calcium (8.4-10.2) mg/dL Fluid Appearance Bloody A (Clear) 11/26/24 11/26/24 Range/Units 07:49 07:49 WBC 11.1 H (3.8-10.6) k/uL RBC 3.33 L (3.80-5.40) m/uL Hgb 8.3 L (11.4-16.0) gm/dL Hct 29.2 L (34.0-46.0) % MCH 24.8 L (25.0-35.0) pg MCHC 28.2 L (31.0-37.0) g/dL RDW 17.3 H (11.5-15.5) % Plt Count 451 H (150-450) k/uL Neutrophils # 8.8 H (1.3-7.7) k/uL Sodium 133 L (137-145) mmol/L Potassium 3.0 L (3.5-5.1) mmol/L Chloride 96 L (98-107) mmol/L Carbon Dioxide 34 H (22-30) mmol/L POC Glucose (mg/dL) (70-110) mg/dL Calcium 7.9 L (8.4-10.2) mg/dL Fluid Appearance (Clear) Microbiology - Last 24 Hours (Table) 11/25/24 12:30 Gram Stain - Preliminary Peritoneal Fluid Body Fluid Culture - Preliminary 11/22/24 19:08 Blood Culture - Preliminary Blood Assessment and Plan Assessment: #) Partial small bowel obstruction with complex fluid collection in anterior abdomne. COntinue NG to LIS. Serial abdominal exams. Normal fluid results reveal 444 white blood cells with 37,000 RBCs. Glucose is noted to be 21 with protein greater than 3600 LDH is also noted to be 995. We will follow-up on cytology. Continue prn iv antiemetics. Strict NPO. Continue IV zosyn #) Recurrent pleural effusions with chronic small right pleural effusion. continue to monitor #) Hyponatremia stable. monitor for worsening givnen d5w usage #) Leukocytosis likely reactive #) Stage 4 Lung cancer with hx of wdege resction left upper lobe 2018 and wedge resection right lower lobe 2019 #) Hx of tobacco use #) Hx of tobacco use #) Opioid induced constipation Anticipate d/c date: Pending clinical status improvement. Time with Patient: Greater than 30
[2024-11-26] MEDS: POTASSIUM CHLORIDE 10 MEQ in WATER FOR INJECTION 1 100ML.BAG IVPB SCH (10:24)
[2024-11-26] MEDS: HEPARIN SODIUM,PORCINE 5,000 UNIT/ML 1 ML VIAL SQ SCH (10:27)
--- NOTE | 2024-11-26 14:14 | P.PN ---
Subjective Progress Note Date: 11/26/24 59-year-old female well-known to me. She presents to the emergency department, on November 22, at about 3 PM, complaining of generalized weakness, and abdominal pain. She apparently was in the hospital recently, for multiple problems including severe abdominal pain, related to opioid induced constipation, nausea, and vomiting. The patient also has a history of COPD, and has a history of non- small cell lung cancer, involving both lungs, with previous resections, done at [facility]. She unfortunately has recurrent lung cancer. She is not undergoing any treatment at this time. The patient is seen today in room 367. Her chest x-ray shows a right-sided pleural effusion, and a small left-sided pleural effusion. Her CT of the chest, shows no progression of her lung cancer. She is currently on 2 L. She is thought to have a possible bowel obstruction, and an NG tube will be placed. She is getting lactated Ringer's at 100 cc an hour. She is getting nasal O2 at 2 L. Current labs include white count 13.8, hemoglobin 9.6, hematocrit 32.8, and a platelet count of 547,000. Sodium 132, potassium 3.8, chloride 95, CO2 25, BUN 13, creatinine 0.55. Glucose was 92. Calcium is 8.7. Procalcitonin level was normal at 0.19. Viral screen was negative. CT scan of the abdomen and pelvis appears to show an obstruction, at the third portion of the duodenum, and significant dilatation of the duodenum, with a large fluid-filled loculated collection within the anterior abdomen. There is a small left pleural effusion. Progress note dated November 24, 2024. 59-year-old female seen today in room 367. She was admitted with abdominal discomfort. She is currently resting comfortably in bed. No acute distress. She is getting adequate pain control. She is currently on room air. An NG tube was noted. She is getting saline at 10 cc an hour, and lactated Ringer's at 75 cc an hour. Procalcitonin level is 0.19. She continues on Zosyn. Current labs include a white count of 11, hemoglobin 8.9, hematocrit 29.8, platelet count of 534,000. Sodium 133, potassium 3.8, chlorides 94, CO2 29, BUN 13, creatinine 0.63. Blood cultures are negative. Chest x-ray is essentially unchanged. On 11/25/2024, the patient is being seen for a follow-up. The patient has an NG tube in place for small bowel obstruction the patient has also a complex fluid collection in the anterior abdomen as revealed on the CAT scan of the abdomen pelvis was obtained on 11/22/2024. Specifically, the patient has obstruction likely at the level of the third portion of the duodenum with significant dilata tion of the duodenum. Large fluid filled loculated collection is also present in the anterior abdomen with a small left-sided pleural effusion. The proximal bowel loops are dilated and there is a large loculated fluid collection displacing normal-appearing small bowel loops and colon. The transition point is possibly the proximal jejunum. CT of the chest was also done on 11/22/2024 revealing a small left-sided pleural effusion. No evidence of any pulmonary embolism. There was a subcarinal lymph node in addition to some consolidation involving the right lung base. The patient has an NG tube in place and total amount of output has been 400 cc for yesterday and 200 cc this morning. [facility] guided placement of a drain in the abdomen with a total of 2.6 L of dark red tea colored fluid being removed and the fluid was sent for cytology. The patient remains on IV Zosyn. The patient remains on IV fluids. NG tube attached to low intermittent suction.Labs from today showed a white cell count of 10.8 with a hemoglobin 8.5 and a platelet count of 562. The sodium is at 134, potassium is at 3.8, BUN is 12 with a creatinine of 0.6. On 11/26/2024, the patient is being seen for a follow-up. The patient underwent a IR guided drainage of the abdominal fluid and immediately a total of 2.4 L of fluid was aspirated. The drainage is less on today's evaluation. NG tube remains in place for now and the patient has produced approximately 400 cc over the past 8 hours from the NG tube and a total of 120 cc from the abdominal drain. Bowel sounds are hypoactive. She is passing flatus. She remains NPO. No bowel movement activity for now. Respiratory status remains stable and the patient remains on oxygen at 3 L with a pulse ox of 99 to 100%. The patient remains on DuoNeb the regiment [id number] and Symbicort as maintenance regarding COPD. The patient remains on IV Zosyn as an empiric antibiotic coverage. Rest of the medications remain unchanged. General surgery is on the case. The patient remains NPO. The patient may need a small bowel follow- through if there is no improvement over the next 24 to 48 hours. Objective - Vital Signs Vital signs: Vital Signs Temp 97.5 F L 11/26/24 03:16 Pulse 112 H 11/26/24 08:37 Resp 18 11/26/24 08:30 BP 130/83 11/26/24 08:30 Pulse Ox 100 11/26/24 08:30 FiO2 Intake & Output 11/25/24 11/26/24 11/26/24 18:59 06:59 18:59 Output Total 520 350 Balance -520 -350 Weight 58.3 kg Output: Gastric Drainage 400 Drainage 120 Abdomen 120 Urine 350 Other: Voiding Method Diaper Bedside Commode Diaper # Voids 1 1 - Exam No acute distress, oriented 3. Currently on 3 days of oxygen by nasal cannula. Calm and comfortable. NG tube is in place. HEENT examination is grossly unremarkable. Mucous membranes are moist. No oral lesions. NG tube is noted. Neck supple. Full range of motion. No adenopathy thyromegaly or neck vein distention. Cardiovascular examination reveals regular rhythm rate. S1-S2 normal. No S3 or S4. No discernible murmur noted. Lungs reveal diminished breath sounds on the right with rhonchi. The left lung is essentially clear. Abdomen mildly distended, without bowel sounds. Tender on palpation. The patient has an abdominal drain and output has been noted. Extremities are intact. No cyanosis clubbing or edema. Skin is without rash or lesion. Neurologic examination is brief but nonfocal. Profound weakness in all 4 extremities. - Labs CBC & Chem 7: 11/26/24 07:49 11/26/24 07:49 Labs: Abnormal Lab Results - Last 24 Hours (Table) 11/25/24 11/25/24 11/25/24 Range/Units 12:30 16:31 17:06 WBC (3.8-10.6) k/uL RBC (3.80-5.40) m/uL Hgb (11.4-16.0) gm/dL Hct (34.0-46.0) % MCH (25.0-35.0) pg MCHC (31.0-37.0) g/dL RDW (11.5-15.5) % Plt Count (150-450) k/uL Neutrophils # (1.3-7.7) k/uL Sodium (137-145) mmol/L Potassium (3.5-5.1) mmol/L Chloride (98-107) mmol/L Carbon Dioxide (22-30) mmol/L POC Glucose (mg/dL) 69 L 114 H (70-110) mg/dL Calcium (8.4-10.2) mg/dL Fluid Appearance Bloody A (Clear) 11/26/24 11/26/24 Range/Units 07:49 07:49 WBC 11.1 H (3.8-10.6) k/uL RBC 3.33 L (3.80-5.40) m/uL Hgb 8.3 L (11.4-16.0) gm/dL Hct 29.2 L (34.0-46.0) % MCH 24.8 L (25.0-35.0) pg MCHC 28.2 L (31.0-37.0) g/dL RDW 17.3 H (11.5-15.5) % Plt Count 451 H (150-450) k/uL Neutrophils # 8.8 H (1.3-7.7) k/uL Sodium 133 L (137-145) mmol/L Potassium 3.0 L (3.5-5.1) mmol/L Chloride 96 L (98-107) mmol/L Carbon Dioxide 34 H (22-30) mmol/L POC Glucose (mg/dL) (70-110) mg/dL Calcium 7.9 L (8.4-10.2) mg/dL Fluid Appearance (Clear) Microbiology - Last 24 Hours (Table) 11/25/24 12:30 Gram Stain - Preliminary Peritoneal Fluid Body Fluid Culture - Preliminary 11/22/24 19:08 Blood Culture - Preliminary Blood Assessment and Plan Plan: Abdominal pain with small bowel obstruction and a large loculated fluid collection displacing the normal appearing small bowel loops and colon with a transition zone appearing to be within the proximal jejunum. Patient has an NG tube for decompression. At the same time, the patient underwent an IR guided placement of a drainage catheter in regards to the abdominal fluid collection. A total of 2.4 L of fluid was immediately drained. The output has dropped since yesterday from the abdominal drain. NG tube is still in place. General surgery is on the case. The patient remains NPO. Abdominal pain, secondary to small bowel obstruction Stage IV lung cancer. 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 Previously maintained on chemotherapy with Alimta and carboplatin, could not tolerate side effects. PET scan taken on 07/25/2024 showing overall mixed response to therapy with slightly increased radiotracer activity throughout the right pleural and anterior right seventh rib with mild decrease in radiotracer activity within the right 10th rib and posterior costophrenic pleural region. Development of nonspecific left anterior peritoneal stranding changes with mild FDG uptake, could represent early peritoneal metastasis versus other etiologies such as infectious/inflammatory nature. Currently on Opdivo, has received 2 infusions so far. She has a known history of lung cancer originally diagnosed with wedge resection of the left upper lobe October 2019, as well as, a right lung resection in February 2021. A follow-up PET scan in February 2023 indicating possible disease recurrence. 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 Her established oncologist is Dr. Castillo. Previous hospitalization, secondary to opioid-induced constipation. Advanced COPD with an FEV1 of 31% of predicted The patient has ongoing volume loss and extensive pleural-parenchymal opacities throughout the right hemithorax and the patient has a pleural rind in the lower lung there is a progressively increasing since 2022. There is also confluent lower lobe opacities that have increased since 2022 and this is consistent with progression of her underlying non-small cell lung cancer Chronic hypoxic respiratory failure maintained on oxygen 2 L/min nasal cannula History of pulmonary embolism, maintained on anticoagulation with Eliquis History of hyperlipidemia. History of gastroesophageal reflux disease. History of tobacco use. Plan: Keep the patient oxygen 3 L/min nasal cannula Keep the NG tube in place for small bowel decompression IR guided drainage catheter was inserted with total of 2.4 L of fluid being evacuated yesterday and another 120 cc over the past 8 hours Passing flatus, no bowel movement activity yet Keep the patient n.p.o. except for ice chips May need a small bowel follow-through if there is no improvement over the next 24 to 48 hours IV fluids IV Zosyn Send the abdominal fluid for cytology and cultures, results are still pending for now General surgery is on the case Overall prognosis remains poor and will continue to follow
--- NOTE | 2024-11-26 15:04 | P.PN ---
Subjective Progress Note Date: 11/26/24 SURGICAL PROGRESS NOTE CHIEF COMPLAINT: Abdominal pain HISTORY OF PRESENT ILLNESS: Patient sitting at bedside chair. Patient status post drain placement by IR service yesterday. She does report some improvement in her abdominal pain. She has had a small amount of flatus. She denies any bowel movements. Denies any nausea. NG tube with 275 mL output. Afebrile. WBC 11.1 Hgb 8.3 platelets 451 potassium 3.0 PHYSICAL EXAM: VITAL SIGNS: Reviewed. GENERAL: Well-developed in no acute distress. ABDOMEN: Is less firm. Mildly distended. Diffuse tenderness. NEUROLOGIC: Alert and oriented. Cranial nerves II through XII grossly intact. ASSESSMENT: 1. Small bowel obstruction and complex fluid collection in the anterior abdomen status post drain placement 2. Stage IV lung cancer 3. Hypokalemia PLAN: -Small bowel follow-through with Gastrografin ordered for evaluation of small bowel obstruction -Follow-up on fluid results sent for cytology -Continue NG tube to low intermittent suction -Keep patient n.p.o. except for ice chips -Continue IV fluids -Continue Zosyn -Potassium being replaced Physician [place] Supervisor note has been reviewed by physician. Signing provider agrees with the documented findings, assessment, and plan of care. Attestation Patient seen and examined at bedside. Minimal output from nasogastric tube. States she is having a small amount of flatus. Improved abdominal pain. At this point, with concern for bowel obstruction we will obtain a small bowel follow-through. Patient with stage IV lung cancer with recent drainage of ascites. Chay Phillips DO Objective - Vital Signs Vital signs: Vital Signs Temp 97.5 F L 11/26/24 03:16 Pulse 116 H 11/26/24 12:26 Resp 16 11/26/24 11:42 BP 145/82 11/26/24 11:42 Pulse Ox 100 11/26/24 11:42 FiO2 Intake & Output 11/25/24 11/26/24 11/26/24 18:59 06:59 18:59 Output Total 520 350 275 Balance -520 -350 -275 Weight 58.3 kg Output: Gastric Drainage 400 Drainage 120 275 Abdomen 120 275 Urine 350 Other: Voiding Method Diaper Bedside Commode Bedside Commode Diaper Diaper # Voids 1 1 2 - Labs CBC & Chem 7: 11/26/24 07:49 11/26/24 07:49 Labs: Abnormal Lab Results - Last 24 Hours (Table) 11/25/24 11/25/24 11/25/24 Range/Units 12:30 16:31 17:06 WBC (3.8-10.6) k/uL RBC (3.80-5.40) m/uL Hgb (11.4-16.0) gm/dL Hct (34.0-46.0) % MCH (25.0-35.0) pg MCHC (31.0-37.0) g/dL RDW (11.5-15.5) % Plt Count (150-450) k/uL Neutrophils # (1.3-7.7) k/uL Sodium (137-145) mmol/L Potassium (3.5-5.1) mmol/L Chloride (98-107) mmol/L Carbon Dioxide (22-30) mmol/L POC Glucose (mg/dL) 69 L 114 H (70-110) mg/dL Calcium (8.4-10.2) mg/dL Fluid Appearance Bloody A (Clear) 11/26/24 11/26/24 Range/Units 07:49 07:49 WBC 11.1 H (3.8-10.6) k/uL RBC 3.33 L (3.80-5.40) m/uL Hgb 8.3 L (11.4-16.0) gm/dL Hct 29.2 L (34.0-46.0) % MCH 24.8 L (25.0-35.0) pg MCHC 28.2 L (31.0-37.0) g/dL RDW 17.3 H (11.5-15.5) % Plt Count 451 H (150-450) k/uL Neutrophils # 8.8 H (1.3-7.7) k/uL Sodium 133 L (137-145) mmol/L Potassium 3.0 L (3.5-5.1) mmol/L Chloride 96 L (98-107) mmol/L Carbon Dioxide 34 H (22-30) mmol/L POC Glucose (mg/dL) (70-110) mg/dL Calcium 7.9 L (8.4-10.2) mg/dL Fluid Appearance (Clear) Microbiology - Last 24 Hours (Table) 11/25/24 12:30 Gram Stain - Preliminary Peritoneal Fluid Body Fluid Culture - Preliminary 11/22/24 19:08 Blood Culture - Preliminary Blood
[2024-11-26] MEDS: ONDANSETRON 4 MG/2 ML VIAL IVP PRN (16:50)
--- NOTE | 2024-11-26 19:03 | FL ---
EXAMINATION TYPE: FL small bowel follow through DATE OF EXAM: 11/26/2024 6:06 PM COMPARISON: 11/11/2024, CT 11/22/2024 CLINICAL INDICATION: Female, 59 years old with history of abdominal pain, follow up on SBO, pain TECHNIQUE: Frontal and oblique views over the abdomen following contrast administration view(s) obtai mayra. FINDINGS: Hris Analyst view: There is a right side catheter. Right-sided port is present. Nasogastric tube transverses the thorax. Small right pleural effusion may be present. Reflux into the esophagus to the level the clavicles evident during the examination. The first second and third portions of the duodenum prominent. Oblique views were obtained. Narrowing at the distal third portion duodenum is suspected. Proximal jejunum and ileum within the field of vi ew appears normal caliber. Patient vomited and did not was unable to continue the examination. The procedure was terminated. Oral contrast extends to the distal small bowel. Ileal caliber appears normal. Jejunal caliber appear s at the upper limits of normal. Partial obstruction is suspected in the region of the duodenum. IMPRESSION: 1. Findings suggestive of partial obstruction within the region of the third portion of the duodenum . 2. Gastroesophageal reflux and small hiatal hernia. [facility], Workstation: [email or web address], 11/26/2024 7:01 PM
[2024-11-26 20:39] LABS: Glucose,Whole Blood 100 mg/dL (70-110)
[2024-11-27 01:18] LABS: Glucose,Whole Blood 100 mg/dL (70-110)
[2024-11-27 06:26] LABS: Glucose,Whole Blood 70 mg/dL (70-110)
[2024-11-27 07:14] LABS: Glucose,Whole Blood 108 mg/dL (70-110)
[2024-11-27 09:05] LABS: ALT 15 U/L (4-34); AST 25 U/L (14-36); African American GFR (CKD) >90 (>60 ml/min/1.73 sqM); Albumin 2.1 g/dL (3.5-5.0); Alkaline Phosphatase 83 U/L (38-126); Anion Gap 0 mmol/L; Blood Urea Nitrogen 6 mg/dL (7-17); Calcium 8.1 mg/dL (8.4-10.2); Carbon Dioxide 36 mmol/L (22-30); Chloride 99 mmol/L (98-107); Glucose 91 mg/dL (74-99); Non-African American GFR(CKD) >90 (>60 ml/min/1.73 sqM); Potassium 3.6 mmol/L (3.5-5.1); Sodium 135 mmol/L (137-145); Total Bilirubin 0.4 mg/dL (0.2-1.3); Total Protein 4.2 g/dL (6.3-8.2)
[2024-11-27 10:31] LABS: HCT 31.4 % (34.0-46.0); MCH 25.4 pg (25.0-35.0); MCHC 28.8 g/dL (31.0-37.0); MCV 88.2 fL (80.0-100.0); RBC 3.56 m/uL (3.80-5.40); RDW 17.2 % (11.5-15.5)
[2024-11-27 10:32] LABS: Anisocytosis Slight; Basophils % (A) 0 %; Eosinophils # (A) 0.1 k/uL (0-0.7); Eosinophils % (A) 1 %; Hypochromasia Marked; Lymphocytes # (A) 1.3 k/uL (1.0-4.8); Lymphocytes % (A) 10 %; Mean Platelet Volume 7.2; Monocytes # (A) 0.6 k/uL (0-1.0); Monocytes % (A) 5 %; Neutrophils # (A) 9.9 k/uL (1.3-7.7); Neutrophils % (A) 83 %; Platelet Count 428 k/uL (150-450)
--- NOTE | 2024-11-27 11:17 | P.PN ---
Subjective Progress Note Date: 11/27/24 Principal diagnosis: Hospital Course: A 59-year-old female with past medical history of stage IV lung cancer, COPD not on oxygen, GERD, hyperlipidemia, history of pulmonary embolism recently finished Eliquis, who presented to the ER with nausea, vomiting, abdominal pain. Patient has been having bowel movements but did report difficulties passing gas. She noted significant lower extremity edema started after she was discharged, affecting her ADLs. No fevers, chills, chest pain, shortness of breath. patient had recent admission for shortness of breath and hemoptysis. CTA was negative for PE. CT abdomen pelvis showed constipation and mild bowel wall thickening. Pulmonology, oncology, and general surgery follow-up with the patient. Hemoptysis resolved, Eliquis was resumed. Patient was started on bowel regimen and began having bowel movements. Patient was instructed to follow-up outpatient with PCP, oncology, pulmonology, and general surgery. Labs on admission show WBCs 12.4 with left shift, hemoglobin 10.2, MCV 85.5, platelets 650. PT 12.4, INR 1.2, PT 22, D-dimer 1.64. Sodium 131, potassium 3.9, chloride 91, bicarb 26, BUN 14, creatinine 0.59, glucose 68. Urinalysis 4+ for ketones. Cepheid was negative. CT abdominal pelvis showed obstruction likely at the third portion of the duodenum with significant dilation of the duodenum, large fluid-filled loculated collection within the anterior abdomen, small left pleural effusion, thickened left adrenal gland. CTA chest showed stable appearance of the patient's right lung cancer, new left pleural effusion, subcarinal lymph node. Pulmonology consulted, no additional recommendations. Patient does have known history of right-sided pleural effusion, no plans for thoracentesis. Surgery consulted, patient is n.p.o., initially refused invasive gastric tube however later agreed, continue IV fluids, continue Zosyn, IR consult for drainage of abdominal fluid collection. 11/24, started passing gas, nausea and vomiting improved. S/p IR drainage on 11/25 with drain left in place. She had a small bowel follow-through on 11/26 which revealed findings suggestive proximal obstruction within the region of the third portion of the duodenum. Objective - Vital Signs Vital signs: Vital Signs Temp 97.4 F L 11/27/24 07:15 Pulse 108 H 11/27/24 07:15 Resp 16 11/27/24 07:15 BP 132/85 11/27/24 07:15 Pulse Ox 100 11/27/24 07:15 FiO2 Intake & Output 11/26/24 11/27/24 11/27/24 18:59 06:59 18:59 Intake Total 100 Output Total 1275 2150 Balance -1175 -2150 Weight 56.7 kg Intake: Intake, IV Titration 100 Amount Piperacillin-Tazobactam 3 100 .375 gm In Sodium Chloride 0.9% 100 ml @ 25 mls/hr IVPB Q8H [facility] Rx#: [id number] Oral 0 Output: Gastric Drainage 1750 Drainage 1075 250 Abdomen 1075 250 Emesis 200 150 Other: Voiding Method Bedside Commode Bedside Commode Bedside Commode Diaper Diaper Diaper # Voids 2 1 # Bowel Movements 0 - Exam General: [nontoxic], [no distress], [appears at stated age], chronically ill- appearing, female Derm: [warm], [dry] Head: [atraumatic], [normocephalic], [symmetric] Eyes: [EOMI], [no lid lag], [anicteric sclera] Mouth: [no lip lesion], [mucus membranes moist], NG in place, suctioning dark brown/greenish Cardiovascular: [S1S2 reg], [no murmur] Lungs: [CTA bilateral], [no rhonchi, no rales] , [no accessory muscle use], decreased breath sounds bilaterally Abdominal: Generalized tenderness, there is a drain on the right side of her abdomen. Ext: [no gross muscle atrophy], 1+ pitting lower extremity edema Neuro: moving extremity spontaneously Psych: [Alert], [oriented], [appropriate affect] - Labs CBC & Chem 7: 11/27/24 10:21 11/27/24 08:34 Labs: Abnormal Lab Results - Last 24 Hours (Table) 11/27/24 11/27/24 Range/Units 08:34 10:21 WBC 12.0 H (3.8-10.6) k/uL RBC 3.56 L (3.80-5.40) m/uL Hgb 9.0 L (11.4-16.0) gm/dL Hct 31.4 L (34.0-46.0) % MCHC 28.8 L (31.0-37.0) g/dL RDW 17.2 H (11.5-15.5) % Neutrophils # 9.9 H (1.3-7.7) k/uL Sodium 135 L (137-145) mmol/L Carbon Dioxide 36 H (22-30) mmol/L BUN 6 L (7-17) mg/dL Creatinine 0.51 L (0.52-1.04) mg/dL Calcium 8.1 L (8.4-10.2) mg/dL Total Protein 4.2 L (6.3-8.2) g/dL Albumin 2.1 L (3.5-5.0) g/dL Microbiology - Last 24 Hours (Table) 11/25/24 12:30 Gram Stain - Preliminary Peritoneal Fluid Body Fluid Culture - Preliminary 11/25/24 12:30 Acid Fast Bacilli Smear - Preliminary Abdominal Fluid Assessment and Plan Assessment: #) Partial small bowel obstruction with complex fluid collection in anterior abdomne. COntinue NG to LIS. Serial abdominal exams. pertioneal fluid results reveal 444 white blood cells with 37,000 RBCs. Glucose is noted to be 21 with protein greater than 3600 LDH is also noted to be 995. We will follow-up on cytology. Continue prn iv antiemetics. Strict NPO. Continue IV zosyn. Small bowel follow-through still revealing partial small bowel obstruction. Appreciate general surgery recommendations. #) Recurrent pleural effusions with chronic small right pleural effusion. continue to monitor #) Hyponatremia stable. monitor for worsening givnen d5w usage #) Leukocytosis likely reactive #) Stage 4 Lung cancer with hx of wdege resction left upper lobe 2018 and wedge resection right lower lobe 2019 #) Hx of tobacco use #) Hx of tobacco use #) Opioid induced constipation Anticipate d/c date: Pending clinical status improvement.
[2024-11-27 12:09] LABS: Glucose,Whole Blood 78 mg/dL (70-110)
--- NOTE | 2024-11-27 14:02 | P.PN ---
Subjective Progress Note Date: 11/27/24 SURGICAL PROGRESS NOTE CHIEF COMPLAINT: Abdominal pain HISTORY OF PRESENT ILLNESS: Patient sitting at bedside chair. She does report nausea and vomiting The small bowel follow-through test yesterday. She denies any flatus or bowel movement. Still complains of abdominal pain and mostly back pain. Small bowel follow-through completed results reporting findings suggestive of partial obstruction within the region of the third portion of the duodenum. GERD and small internal hernia. NG tube output 1100ml through the night 600ml today. Drain with 150 mL output. Afebrile. WBC 12 Hgb 9 PHYSICAL EXAM: VITAL SIGNS: Reviewed. GENERAL: Well-developed in no acute distress. ABDOMEN: soft, nondistended. Diffuse tenderness. NEUROLOGIC: Alert and oriented. Cranial nerves II through XII grossly intact. ASSESSMENT: 1. Partial small bowel obstruction within the third portion of the duodenum 2. Complex fluid collection in the anterior abdomen status post drain placement. 2. Stage IV lung cancer PLAN: -Patient scheduled for EGD tomorrow with Dr. Phillips -Continue NG tube for decompression -Keep patient n.p.o. -Follow-up on cytology results -Continue antibiotics Physician Blueprint Engineer note has been reviewed by physician. Signing provider agrees with the documented findings, assessment, and plan of care. Attestation Patient seen and examined at bedside. She presented with chief complaint of abdominal pain. Noted to have stage IV lung cancer. Abdominal fluid has been drained. Awaiting cytology results for this. Continue nasogastric tube at this time. Small bowel follow-through was performed with finding of partial small bowel obstruction with possibility of obstructing area within the third portion of the duodenum. Plan is for EGD for further evaluation. Further recommen dations after EGD is performed. Chay Phillips DO Objective - Vital Signs Vital signs: Vital Signs Temp 97.7 F 11/27/24 13:18 Pulse 113 H 11/27/24 13:18 Resp 16 11/27/24 13:18 BP 124/76 11/27/24 13:18 Pulse Ox 100 11/27/24 13:18 FiO2 Intake & Output 11/26/24 11/27/24 11/27/24 18:59 06:59 18:59 Intake Total 100 Output Total 1275 2150 750 Balance -1175 -2150 -750 Weight 56.7 kg Intake: Intake, IV Titration 100 Amount Piperacillin-Tazobactam 3 100 .375 gm In Sodium Chloride 0.9% 100 ml @ 25 mls/hr IVPB Q8H [facility] Rx#: [id number] Oral 0 Output: Gastric Drainage 1750 600 Drainage 1075 250 150 Abdomen 1075 250 150 Emesis 200 150 Other: Voiding Method Bedside Commode Bedside Commode Bedside Commode Diaper Diaper Diaper # Voids 2 1 1 # Bowel Movements 0 0 - Labs CBC & Chem 7: 11/27/24 10:21 11/27/24 08:34 Labs: Abnormal Lab Results - Last 24 Hours (Table) 11/27/24 11/27/24 Range/Units 08:34 10:21 WBC 12.0 H (3.8-10.6) k/uL RBC 3.56 L (3.80-5.40) m/uL Hgb 9.0 L (11.4-16.0) gm/dL Hct 31.4 L (34.0-46.0) % MCHC 28.8 L (31.0-37.0) g/dL RDW 17.2 H (11.5-15.5) % Neutrophils # 9.9 H (1.3-7.7) k/uL Sodium 135 L (137-145) mmol/L Carbon Dioxide 36 H (22-30) mmol/L BUN 6 L (7-17) mg/dL Creatinine 0.51 L (0.52-1.04) mg/dL Calcium 8.1 L (8.4-10.2) mg/dL Total Protein 4.2 L (6.3-8.2) g/dL Albumin 2.1 L (3.5-5.0) g/dL Microbiology - Last 24 Hours (Table) 11/25/24 12:30 Anaerobic Culture - Preliminary Abdominal Fluid 11/25/24 12:30 Gram Stain - Preliminary Peritoneal Fluid Body Fluid Culture - Preliminary 11/25/24 12:30 Acid Fast Bacilli Smear - Preliminary Abdominal Fluid
[2024-11-27 17:50] LABS: Glucose,Whole Blood 75 mg/dL (70-110)
--- NOTE | 2024-11-27 18:25 | P.PN ---
Subjective Progress Note Date: 11/27/24 59-year-old female well-known to me. She presents to the emergency department, on November 22, at about 3 PM, complaining of generalized weakness, and abdominal pain. She apparently was in the hospital recently, for multiple problems including severe abdominal pain, related to opioid induced constipation, nausea, and vomiting. The patient also has a history of COPD, and has a history of non- small cell lung cancer, involving both lungs, with previous resections, done at [facility]. She unfortunately has recurrent lung cancer. She is not undergoing any treatment at this time. The patient is seen today in room 367. Her chest x-ray shows a right-sided pleural effusion, and a small left-sided pleural effusion. Her CT of the chest, shows no progression of her lung cancer. She is currently on 2 L. She is thought to have a possible bowel obstruction, and an NG tube will be placed. She is getting lactated Ringer's at 100 cc an hour. She is getting nasal O2 at 2 L. Current labs include white count 13.8, hemoglobin 9.6, hematocrit 32.8, and a platelet count of 547,000. Sodium 132, potassium 3.8, chloride 95, CO2 25, BUN 13, creatinine 0.55. Glucose was 92. Calcium is 8.7. Procalcitonin level was normal at 0.19. Viral screen was negative. CT scan of the abdomen and pelvis appears to show an obstruction, at the third portion of the duodenum, and significant dilatation of the duodenum, with a large fluid-filled loculated collection within the anterior abdomen. There is a small left pleural effusion. Progress note dated November 24, 2024. 59-year-old female seen today in room 367. She was admitted with abdominal discomfort. She is currently resting comfortably in bed. No acute distress. She is getting adequate pain control. She is currently on room air. An NG tube was noted. She is getting saline at 10 cc an hour, and lactated Ringer's at 75 cc an hour. Procalcitonin level is 0.19. She continues on Zosyn. Current labs include a white count of 11, hemoglobin 8.9, hematocrit 29.8, platelet count of 534,000. Sodium 133, potassium 3.8, chlorides 94, CO2 29, BUN 13, creatinine 0.63. Blood cultures are negative. Chest x-ray is essentially unchanged. On 11/25/2024, the patient is being seen for a follow-up. The patient has an NG tube in place for small bowel obstruction the patient has also a complex fluid collection in the anterior abdomen as revealed on the CAT scan of the abdomen pelvis was obtained on 11/22/2024. Specifically, the patient has obstruction likely at the level of the third portion of the duodenum with significant dilata tion of the duodenum. Large fluid filled loculated collection is also present in the anterior abdomen with a small left-sided pleural effusion. The proximal bowel loops are dilated and there is a large loculated fluid collection displacing normal-appearing small bowel loops and colon. The transition point is possibly the proximal jejunum. CT of the chest was also done on 11/22/2024 revealing a small left-sided pleural effusion. No evidence of any pulmonary embolism. There was a subcarinal lymph node in addition to some consolidation involving the right lung base. The patient has an NG tube in place and total amount of output has been 400 cc for yesterday and 200 cc this morning. [facility] of a drain in the abdomen with a total of 2.6 L of dark red tea colored fluid being removed and the fluid was sent for cytology. The patient remains on IV Zosyn. The patient remains on IV fluids. NG tube attached to low intermittent suction.Labs from today showed a white cell count of 10.8 with a hemoglobin 8.5 and a platelet count of 562. The sodium is at 134, potassium is at 3.8, BUN is 12 with a creatinine of 0.6. On 11/26/2024, the patient is being seen for a follow-up. The patient underwent a IR guided drainage of the abdominal fluid and immediately a total of 2.4 L of fluid was aspirated. The drainage is less on today's evaluation. NG tube remains in place for now and the patient has produced approximately 400 cc over the past 8 hours from the NG tube and a total of 120 cc from the abdominal drain. Bowel sounds are hypoactive. She is passing flatus. She remains NPO. No bowel movement activity for now. Respiratory status remains stable and the patient remains on oxygen at 3 L with a pulse ox of 99 to 100%. The patient remains on DuoNeb the regiment [id number] and Symbicort as maintenance regarding COPD. The patient remains on IV Zosyn as an empiric antibiotic coverage. Rest of the medications remain unchanged. General surgery is on the case. The patient remains NPO. The patient may need a small bowel follow- through if there is no improvement over the next 24 to 48 hours. On 11/27/2024, condition essentially unchanged. The patient remains NPO. NG tube is in place and total amount of output from the NG tube has been 600 cc overnight. The same time, the patient had another 150 cc drainage from the abdominal drain. Abdomen is not distended. Bowel sounds are absent. No bowel movement activity yet. The patient is scheduled to undergo an EGD tomorrow. Awaiting ascitic fluid cytology. White cell count is at 12 with a hemoglobin 9 and a platelet count of 428. BUN is 6 with a creatinine of 0.5 and a sodium levels at 135. Overall respiratory status is stable. No dyspnea at rest and she remains on 3 days of oxygen by nasal cannula with a pulse ox of 99 to 100%. No other significant events overnight. The patient needs to be considered for TPN. Objective - Vital Signs Vital signs: Vital Signs Temp 97.7 F 11/27/24 13:18 Pulse 113 H 11/27/24 13:18 Resp 16 11/27/24 13:18 BP 124/76 11/27/24 13:18 Pulse Ox 100 11/27/24 13:18 FiO2 Intake & Output 11/26/24 11/27/24 11/27/24 18:59 06:59 18:59 Intake Total 100 480 Output Total 1275 2150 900 Balance -1175 -2150 -420 Weight 56.7 kg Intake: Intake, IV Titration 100 Amount Piperacillin-Tazobactam 3 100 .375 gm In Sodium Chloride 0.9% 100 ml @ 25 mls/hr IVPB Q8H [facility] Rx#: [id number] Oral 0 480 Output: Gastric Drainage 1750 650 Drainage 1075 250 250 Abdomen 1075 250 250 Emesis 200 150 Other: Voiding Method Bedside Commode Bedside Commode Bedside Commode Diaper Diaper Diaper # Voids 2 1 2 # Bowel Movements 0 0 - Exam No acute distress, oriented 3. Currently on 3 days of oxygen by nasal cannula. Calm and comfortable. NG tube is in place. HEENT examination is grossly unremarkable. Mucous membranes are moist. No oral lesions. NG tube is noted. Neck supple. Full range of motion. No adenopathy thyromegaly or neck vein distention. Cardiovascular examination reveals regular rhythm rate. S1-S2 normal. No S3 or S4. No discernible murmur noted. Lungs reveal diminished breath sounds on the right with rhonchi. The left lung is essentially clear. Abdomen mildly distended, without bowel sounds. Tender on palpation. The patient has an abdominal drain and output has been noted. Extremities are intact. No cyanosis clubbing or edema. Skin is without rash or lesion. Neurologic examination is brief but nonfocal. Profound weakness in all 4 extremities. - Labs CBC & Chem 7: 11/27/24 10:21 11/27/24 08:34 Labs: Abnormal Lab Results - Last 24 Hours (Table) 11/27/24 11/27/24 Range/Units 08:34 10:21 WBC 12.0 H (3.8-10.6) k/uL RBC 3.56 L (3.80-5.40) m/uL Hgb 9.0 L (11.4-16.0) gm/dL Hct 31.4 L (34.0-46.0) % MCHC 28.8 L (31.0-37.0) g/dL RDW 17.2 H (11.5-15.5) % Neutrophils # 9.9 H (1.3-7.7) k/uL Sodium 135 L (137-145) mmol/L Carbon Dioxide 36 H (22-30) mmol/L BUN 6 L (7-17) mg/dL Creatinine 0.51 L (0.52-1.04) mg/dL Calcium 8.1 L (8.4-10.2) mg/dL Total Protein 4.2 L (6.3-8.2) g/dL Albumin 2.1 L (3.5-5.0) g/dL Microbiology - Last 24 Hours (Table) 11/25/24 12:30 Anaerobic Culture - Preliminary Abdominal Fluid 11/25/24 12:30 Gram Stain - Preliminary Peritoneal Fluid Body Fluid Culture - Preliminary 11/25/24 12:30 Acid Fast Bacilli Smear - Preliminary Abdominal Fluid Assessment and Plan Plan: Abdominal pain with small bowel obstruction and a large loculated fluid collection displacing the normal appearing small bowel loops and colon with a transition zone appearing to be within the proximal jejunum. Patient has an NG tube for decompression. At the same time, the patient underwent an IR guided placement of a drainage catheter in regards to the abdominal fluid collection. Output from the NG tube remains considerably high. The abdominal drain is still in place. The patient continues to have bowel obstruction. She remains NPO. Abdominal pain, secondary to small bowel obstruction Stage IV lung cancer. 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 Previously maintained on chemotherapy with Alimta and carboplatin, could not tolerate side effects. PET scan taken on 07/25/2024 showing overall mixed response to therapy with slightly increased radiotracer activity throughout the right pleural and anterior right seventh rib with mild decrease in radiotracer activity within the right 10th rib and posteri or costophrenic pleural region. Development of nonspecific left anterior peritoneal stranding changes with mild FDG uptake, could represent early peritoneal metastasis versus other etiologies such as infectious/inflammatory nature. Currently on Opdivo, has received 2 infusions so far. She has a known history of lung cancer originally diagnosed with wedge resection of the left upper lobe October 2019, as well as, a right lung resection in February 2021. A follow-up PET scan in February 2023 indicating possible disease recurrence. 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 Her established oncologist is Dr. Castillo. Previous hospitalization, secondary to opioid-induced constipation. Advanced COPD with an FEV1 of 31% of predicted The patient has ongoing volume loss and extensive pleural-parenchymal opacities throughout the right hemithorax and the patient has a pleural rind in the lower lung there is a progressively increasing since 2022. There is also confluent lower lobe opacities that have increased since 2022 and this is consistent with progression of her underlying non-small cell lung cancer Chronic hypoxic respiratory failure maintained on oxygen 2 L/min nasal cannula History of pulmonary embolism, maintained on anticoagulation with Eliquis History of hyperlipidemia. History of gastroesophageal reflux disease. History of tobacco use. Plan: Keep the patient n.p.o. Will discuss the possibility and the need for TPN by general surgery Keep the patient oxygen 3 L/min nasal cannula Keep the NG tube in place for small bowel decompression The patient is scheduled to undergo another EGD in a.m. no bowel movement activity yet Keep the patient n.p.o. except for ice chips May need a small bowel follow-through if there is no improvement over the next 24 to 48 hours IV fluids IV Zosyn Send the abdominal fluid for cytology and cultures, results are still pending for now General surgery is on the case Overall prognosis remains poor and will continue to follow
[2024-11-27 20:29] LABS: Glucose,Whole Blood 67 mg/dL (70-110)
[2024-11-27 23:18] LABS: Glucose,Whole Blood 96 mg/dL (70-110)
[2024-11-28] MEDS: ACETAMINOPHEN TAB 325 MG TAB PO PRN (00:08)
[2024-11-28] MEDS: ALBUTEROL NEBULIZED 2.5 MG/3 ML INHALATION PRN (02:12)
[2024-11-28 06:59] LABS: Glucose,Whole Blood 77 mg/dL (70-110)
[2024-11-28] MEDS ORDERED: PROPOFOL 10 MG/ML 20 ML VIAL IV ONE (09:26)
[2024-11-28] MEDS ORDERED: PHENYLEPHRINE 10 MG/ML VIAL ONE (09:26)
[2024-11-28] MEDS: SODIUM CHLORIDE 0.9% 500 ML 500 ML IV ONE ×2 (09:29→09:52)
[2024-11-28 09:53] LABS: ALT 15 U/L (4-34); AST 26 U/L (14-36); African American GFR (CKD) >90 (>60 ml/min/1.73 sqM); Albumin 2.1 g/dL (3.5-5.0); Alkaline Phosphatase 66 U/L (38-126); Anion Gap 0 mmol/L; Blood Urea Nitrogen 7 mg/dL (7-17); Carbon Dioxide 36 mmol/L (22-30); Chloride 98 mmol/L (98-107); Globulin 2.1 g/dL; Glucose 77 mg/dL (74-99); Non-African American GFR(CKD) >90 (>60 ml/min/1.73 sqM); Potassium 3.3 mmol/L (3.5-5.1); Sodium 134 mmol/L (137-145); Total Bilirubin 0.4 mg/dL (0.2-1.3); Total Protein 4.2 g/dL (6.3-8.2)
--- NOTE | 2024-11-28 10:02 | P.PCN ---
Date of Procedure: 11/28/24 Preoperative Diagnosis: Concern for obstruction in the duodenum Postoperative Diagnosis: Gastritis Procedure(s) Performed: EGD with biopsy Anesthesia: MEGHAN Surgeon: Chay Phillips Pathology: other (Biopsy of gastric body) Condition: stable Disposition: floor Indications for Procedure: 59-year-old female with diagnosis of stage IV lung cancer with concern for partial small bowel obstruction. Recent small bowel follow-through with finding of possibility of partial obstruction in the third portion of the duodenum. This also was confirmed on CT. Plan for scope for further evaluation. Risks, benefits and alternatives were provided to the patient. All questions answered. Operative Findings: No obstructive mass noted Gastritis versus early ulceration noted in the gastric body Description of Procedure: The patient was brought into the endoscopy suite and placed in left lateral decubitus position. Adequate sedation was achieved using conscious sedation. A bite-block was placed and an endoscope was placed in the oropharynx and advanced under endoscopic visualization. The endoscope was advanced through the esophagus into the stomach, through the gastric antrum and in through the pylorus. Most of the third portion of duodenum was visualized with no obvious obstructing mass. Advancement of the scope was tried further without any significant success. There was mild inflammatory changes in the first portion of the duodenum. Biopsies were taken. The antrum was noted to have no significant inflammatory changes. The gastric body distended normally and the gastric folds appeared normal and flattened with insufflation. There is a portion of the gastric body just distal to the GE junction with finding of focal gastritis versus early ulceration. Biopsies were taken. A retroflexed view of the fundus and GE junction revealed mild hiatal hernia. GE junction appeared normal. The esophagus appeared endoscopically normal. Excess air was removed and the scope was withdrawn and the procedure was completed. The patient was sent to PACU in stable condition.
[2024-11-28 10:48] LABS: Basophils # (A) 0.12 X 10*3/uL (0.00-0.10); Basophils % (A) 1.1 %; Eosinophils # (A) 0.06 X 10*3/uL (0.04-0.35); Eosinophils % (A) 0.6 %; HCT 31.9 % (37.2-46.3); HGB 8.9 g/dL (12.0-15.0); Lymphocytes % (A) 14.1 %; MCH 24.6 pg (27.0-32.0); MCHC 27.9 g/dL (32.0-37.0); MCV 88.1 FL (80.0-97.0); Mean Platelet Volume 9.7 FL (9.5-12.2); Monocytes # (A) 0.84 X 10*3/uL (0.20-1.00); Monocytes % (A) 7.9 %; NRBC Per 100 WBC 0 X 10*3/uL (0.00-0.01); Neutrophils # (A) 8.06 X 10*3/uL (1.80-7.70); Neutrophils % (A) 75.8 %; Platelet Count 438 X 10*3/uL (140-440); RBC 3.62 X 10*6/uL (4.10-5.20); RDW 18.1 % (11.5-14.5); WBC 10.63 X 10*3/uL (4.50-10.00)
[2024-11-28 12:20] LABS: Glucose,Whole Blood 81 mg/dL (70-110)
[2024-11-28 14:33] VITALS: BMI 22.8
--- NOTE | 2024-11-28 16:05 | P.PN ---
Subjective Progress Note Date: 11/28/24 Hospital course: Patient is a very pleasant 59-year-old female with a past medical history of COPD with chronic hypoxic respiratory failure home oxygen dependence on 2 L, stage IV lung cancer on Opdivo and has received 2 infusions so far follows outpatient with Dr. Castillo, history of previous pulmonary emboli, hyperlipidemia, opioid-induced constipation, and GERD. Patient presented to the hospital on 11/22/24 with a chief complaint of complaint of generalized weakness, abdominal pain, nausea, and vomiting. Upon arrival to our facility, patient underwent evaluation in the emergency department. Vital signs upon arrival show blood pressure 118/74, heart rate 130, respiratory rate 20, temp 98.1 F, and SpO2 of 96% on room air. EKG completed showing sinus tachycardia at 123 bpm. Labs completed and reviewed. CBC showing leukocytosis with WBC count of 12.4, normocytic anemia with hemoglobin of 10.2, and thrombocytosis with platelet count of 650. Coagulation profile showing elevated INR of 1.2 and elevated D- dimer of 1.64. BMP showing hypochloremic hyponatremia with sodium of 131 and chloride of 91. Blood glucose was low at 68. Lactic acid was normal findings at 1.1. Magnesium 1.7. Liver profile showing elevated alkaline phosphatase of 129 otherwise normal findings. Troponin was negative at less than 0.012. proBNP 215. Albumin slightly low at 3.3. Procalcitonin negative at 0.19. Urinalysis negative for infection. Influenza A, influenza B, RSV, and COVID PCR negative. CT abdomen and pelvis was completed showing possible small bowel obstruction at the third position of the duodenum with significant dilation of the duodenum, large fluid-filled loculated collection within the anterior abdomen, small pleural effusion, and thickened left adrenal gland. Chest x-ray completed showing moderate right and minimal posterior left pleural effusions. CTA chest reporting stable appearance of patient's right lung cancer, new left pleural effusion, and subcarinal lymph node. Patient admitted under our services with consultation to general surgery for small bowel obstruction and mobility architect for bilateral pleural effusions. On 11/25/2026 patient underwent insertion of ultrasound guided abdominal drain placement for visceral fluid drainage. On 11/26/2024 patient underwent small bowel follow-through which revealed findings suggestive of proximal obstruction within the region of the third portion of the duodenum. Patient taken for EGD this morning with Dr. Phillips. Physical exam: Patient seen and fully evaluated in room 520 after returning from EGD. NG tube remains in place to low intermittent suction. Patient reports continued abdominal distention/pain. She denies passing flatus or having any bowel movements. Vital signs reviewed and stable. General: Nontoxic, no distress and appears stated age. Thin and frail, chronically ill-appearing. Derm: Skin warm and dry, normal coloration for ethnicity. Head: Atraumatic, normocephalic and symmetric. Eyes: EOM's intact, no lid lag, and anicteric sclera Mouth: no lip lesions, mucus membranes moist Cardiovascular: regular rate and rhythm with normal S1S2, no murmur, positive posterior tibial pulses bilaterally, and cap refill < 2 seconds. Lungs: Respirations even, regular, and unlabored on room air. Lungs diminished worse on right, no rhonchi, no rales, no wheezing, and no accessory muscle usage. Abdominal: soft distended, diffuse tenderness upon palpation, no guarding, no appreciable organomegaly. Abdominal drain in place. NG tube in place. Ext: ROM intact. No gross muscle atrophy, bilateral lower extremity pedal edema, no contractures Neuro: Speech clear, face symmetrical and CN II-XII grossly intact with no noted focal neuro deficits Psych: Alert and oriented to person, place, time, and situation. Appropriate and pleasant affect. Assessment and Plan of Care: Partial small bowel obstruction with complex fluid collection in anterior abdomen Hypochloremic hyponatremia Opioid-induced constipation -General Surgery following, discussed plan of care with Dr. Phillips. -Patient underwent EGD this morning. -Will start patient on scheduled Reglan and attempts to promote gastric motility. -Continue Linzess 145 mcg daily and Senokot 8.6 mg twice daily. -GI prophylaxis with Protonix. 40 mg IVP twice daily. -Continue NG tube to low intermittent suction. -Close monitoring of I's and O's -Continue D5.9 at 75 cc/h, pending EGD and further recommendations from general surgery patient may need to be started on TPN. Recurrent pleural effusions with chronic small right pleural effusion, recurrent metastatic infusions Stage IV non-small cell lung cancer with history of wedge resection of left upper lobe and wedge resection of right lower lobe COPD with chronic hypoxic respiratory failure -Pulmonology following, reviewed documentation in chart. -Continue supplemental oxygen titrate as needed to maintain SpO2 equal to or greater than 92%. -Continue DuoNebs scheduled 4 times daily and as needed for shortness of breath and/or wheezing. -Continue Symbicort 160-4.5 mcg inhaler 2 puffs twice daily -Encourage incentive spirometry. -Currently on Opdivo, has received 2 infusions so far and follows outpatient with Dr. Castillo. Leukocytosis, likely reactive Thrombocytosis, likely reactive -Procalcitonin negative. Blood culture showing no growth to date. -Follow-up on visceral/peritoneal fluid culture results once available. -Leukocytosis likely reactive. -Continue IV antibiotics with Zosyn 3.375 g every 8 hours pending final culture and sensitivity reports. Data and imaging reviewed: Vital signs reviewed. Blood pressure 137/83, heart rate 108, respiratory 16, temp 98, SpO2 100% on 2 L. Morning labs reviewed. CBC showing leukocytosis with WBC count of 13.8, normocytic anemia with hemoglobin of 9.6, and thrombocytosis with platelet count of 547. BMP showing hypochloremic hyponatremia with sodium of 132 and chloride of 95. CODE STATUS: Full code DVT prophylaxis: Heparin Anticipated discharge date: Pending clinical course Anticipated discharge place: Pending clinical course Patient was seen independently by Nurse Pracitioner. This document was prepared using [employer] dictation software. Please allow for errors in integrated logistics support manager, while rare they do occur. Charlie Hylton NP rendered care for this patient independently, reviewed the findings and plan as documented in the note above and agree with plan. I did not physically speak with or examine the patient on this date. Objective - Vital Signs Vital signs: Vital Signs Temp 97.6 F 11/28/24 08:14 Pulse 90 11/28/24 08:48 Resp 16 11/28/24 08:14 BP 138/83 11/28/24 08:14 Pulse Ox 98 11/28/24 08:37 FiO2 Intake & Output 11/27/24 11/28/24 11/28/24 18:59 06:59 18:59 Intake Total 480 100 Output Total 900 425 200 Balance -420 -325 -200 Intake: Intake, IV Titration 100 Amount Piperacillin-Tazobactam 3 100 .375 gm In Sodium Chloride 0.9% 100 ml @ 25 mls/hr IVPB Q8H [facility] Rx#: [id number] Oral 480 Output: Gastric Drainage 650 100 Drainage 250 325 200 Abdomen 250 325 200 Other: Voiding Method Bedside Commode Bedside Commode Diaper Diaper # Voids 2 3 1 # Bowel Movements 0 - Labs CBC & Chem 7: 11/28/24 08:12 11/28/24 08:12 Labs: Abnormal Lab Results - Last 24 Hours (Table) 11/27/24 11/27/24 Range/Units 10:21 20:27 WBC 12.0 H (3.8-10.6) k/uL RBC 3.56 L (3.80-5.40) m/uL Hgb 9.0 L (11.4-16.0) gm/dL Hct 31.4 L (34.0-46.0) % MCHC 28.8 L (31.0-37.0) g/dL RDW 17.2 H (11.5-15.5) % Neutrophils # 9.9 H (1.3-7.7) k/uL POC Glucose (mg/dL) 67 L (70-110) mg/dL Microbiology - Last 24 Hours (Table) 11/25/24 12:30 Gram Stain - Preliminary Peritoneal Fluid Body Fluid Culture - Preliminary 11/22/24 19:08 Blood Culture - Final Blood 11/25/24 12:30 Anaerobic Culture - Preliminary Abdominal Fluid
[2024-11-28 17:11] LABS: Glucose,Whole Blood 137 mg/dL (70-110)
[2024-11-28] MEDS: METOCLOPRAMIDE 5 MG/ML 2 ML VIAL IVP SCH (17:37)
--- NOTE | 2024-11-28 20:39 | P.PN ---
Subjective Progress Note Date: 11/28/24 59-year-old female well-known to me. She presents to the emergency department, on November 22, at about 3 PM, complaining of generalized weakness, and abdominal pain. She apparently was in the hospital recently, for multiple problems including severe abdominal pain, related to opioid induced constipation, nausea, and vomiting. The patient also has a history of COPD, and has a history of non- small cell lung cancer, involving both lungs, with previous resections, done at [facility]. She unfortunately has recurrent lung cancer. She is not undergoing any treatment at this time. The patient is seen today in room 367. Her chest x-ray shows a right-sided pleural effusion, and a small left-sided pleural effusion. Her CT of the chest, shows no progression of her lung cancer. She is currently on 2 L. She is thought to have a possible bowel obstruction, and an NG tube will be placed. She is getting lactated Ringer's at 100 cc an hour. She is getting nasal O2 at 2 L. Current labs include white count 13.8, hemoglobin 9.6, hematocrit 32.8, and a platelet count of 547,000. Sodium 132, potassium 3.8, chloride 95, CO2 25, BUN 13, creatinine 0.55. Glucose was 92. Calcium is 8.7. Procalcitonin level was normal at 0.19. Viral screen was negative. CT scan of the abdomen and pelvis appears to show an obstruction, at the third portion of the duodenum, and significant dilatation of the duodenum, with a large fluid-filled loculated collection within the anterior abdomen. There is a small left pleural effusion. Progress note dated November 24, 2024. 59-year-old female seen today in room 367. She was admitted with abdominal discomfort. She is currently resting comfortably in bed. No acute distress. She is getting adequate pain control. She is currently on room air. An NG tube was noted. She is getting saline at 10 cc an hour, and lactated Ringer's at 75 cc an hour. Procalcitonin level is 0.19. She continues on Zosyn. Current labs include a white count of 11, hemoglobin 8.9, hematocrit 29.8, platelet count of 534,000. Sodium 133, potassium 3.8, chlorides 94, CO2 29, BUN 13, creatinine 0.63. Blood cultures are negative. Chest x-ray is essentially unchanged. On 11/25/2024, the patient is being seen for a follow-up. The patient has an NG tube in place for small bowel obstruction the patient has also a complex fluid collection in the anterior abdomen as revealed on the CAT scan of the abdomen pelvis was obtained on 11/22/2024. Specifically, the patient has obstruction likely at the level of the third portion of the duodenum with significant dilata tion of the duodenum. Large fluid filled loculated collection is also present in the anterior abdomen with a small left-sided pleural effusion. The proximal bowel loops are dilated and there is a large loculated fluid collection displacing normal-appearing small bowel loops and colon. The transition point is possibly the proximal jejunum. CT of the chest was also done on 11/22/2024 revealing a small left-sided pleural effusion. No evidence of any pulmonary embolism. There was a subcarinal lymph node in addition to some consolidation involving the right lung base. The patient has an NG tube in place and total amount of output has been 400 cc for yesterday and 200 cc this morning. [facility] guided placement of a drain in the abdomen with a total of 2.6 L of dark red tea colored fluid being removed and the fluid was sent for cytology. The patient remains on IV Zosyn. The patient remains on IV fluids. NG tube attached to low intermittent suction.Labs from today showed a white cell count of 10.8 with a hemoglobin 8.5 and a platelet count of 562. The sodium is at 134, potassium is at 3.8, BUN is 12 with a creatinine of 0.6. On 11/26/2024, the patient is being seen for a follow-up. The patient underwent a IR guided drainage of the abdominal fluid and immediately a total of 2.4 L of fluid was aspirated. The drainage is less on today's evaluation. NG tube remains in place for now and the patient has produced approximately 400 cc over the past 8 hours from the NG tube and a total of 120 cc from the abdominal drain. Bowel sounds are hypoactive. She is passing flatus. She remains NPO. No bowel movement activity for now. Respiratory status remains stable and the patient remains on oxygen at 3 L with a pulse ox of 99 to 100%. The patient remains on DuoNeb the regiment [id number] and Symbicort as maintenance regarding COPD. The patient remains on IV Zosyn as an empiric antibiotic coverage. Rest of the medications remain unchanged. General surgery is on the case. The patient remains NPO. The patient may need a small bowel follow- through if there is no improvement over the next 24 to 48 hours. On 11/27/2024, condition essentially unchanged. The patient remains NPO. NG tube is in place and total amount of output from the NG tube has been 600 cc overnight. The same time, the patient had another 150 cc drainage from the abdominal drain. Abdomen is not distended. Bowel sounds are absent. No bowel movement activity yet. The patient is scheduled to undergo an EGD tomorrow. Awaiting ascitic fluid cytology. White cell count is at 12 with a hemoglobin 9 and a platelet count of 428. BUN is 6 with a creatinine of 0.5 and a sodium levels at 135. Overall respiratory status is stable. No dyspnea at rest and she remains on 3 days of oxygen by nasal cannula with a pulse ox of 99 to 100%. No other significant events overnight. The patient needs to be considered for TPN. 1. 11/28/2024, the patient underwent EGD this morning and the patient was found to have no evidence of any duodenal obstruction. NG tube is still in place attached to low intermittent suction. Patient is on D5 normal saline at rate of 75 cc an hour. The patient may need to be started on TPN for nutritional support. Remains on IV Zosyn. Overall respiratory status is unchanged and the patient remains on 2 L of oxygen nasal cannula with a pulse ox of 99%. White cell count is at 10 with a hemoglobin 8.9 and a platelet count of 438. BUN is at 7 with a creatinine of 0.5 and a sodium level is at 134 and a potassium level is at 3.3. The ascitic fluid that was aspirated earlier was malignant and consistent with pulmonary non-small cell lung cancer. The output from the NG tube has been 750 cc over the past 8 hours. The abdominal drain has produced another 500 cc of output. Objective - Vital Signs Vital signs: Vital Signs Temp 97.9 F 11/28/24 19:00 Pulse 117 H 11/28/24 19:00 Resp 16 11/28/24 19:00 BP 125/75 11/28/24 19:00 Pulse Ox 100 11/28/24 19:00 FiO2 Intake & Output 11/28/24 11/28/24 11/29/24 06:59 18:59 06:59 Intake Total 100 860 Output Total 425 1220 Balance -325 -360 Weight 56.7 kg Intake: IV 300 Intake, IV Titration 100 Amount Piperacillin-Tazobactam 3 100 .375 gm In Sodium Chloride 0.9% 100 ml @ 25 mls/hr IVPB Q8H [facility] Rx#: [id number] Oral 560 Output: Gastric Drainage 100 220 Drainage 325 850 Abdomen 325 850 Urine 150 Other: Voiding Method Bedside Commode Bedside Commode Bedside Commode Diaper Diaper Diaper External Catheter # Voids 3 1 - Exam No acute distress, oriented 3. Currently on 3 days of oxygen by nasal cannula. Calm and comfortable. NG tube is in place. HEENT examination is grossly unremarkable. Mucous membranes are moist. No oral lesions. NG tube is noted. Neck supple. Full range of motion. No adenopathy thyromegaly or neck vein distention. Cardiovascular examination reveals regular rhythm rate. S1-S2 normal. No S3 or S4. No discernible murmur noted. Lungs reveal diminished breath sounds on the right with rhonchi. The left lung is essentially clear. Abdomen mildly distended, without bowel sounds. Tender on palpation. The patient has an abdominal drain and output has been noted. Extremities are intact. No cyanosis clubbing or edema. Skin is without rash or lesion. Neurologic examination is brief but nonfocal. Profound weakness in all 4 extremities. - Labs CBC & Chem 7: 11/28/24 08:12 11/28/24 08:12 Labs: Abnormal Lab Results - Last 24 Hours (Table) 11/28/24 11/28/24 11/28/24 Range/Units 08:12 08:12 17:10 WBC 10.63 H (4.50-10.00) X 10*3/uL RBC 3.62 L (4.10-5.20) X 10*6/uL Hgb 8.9 L (12.0-15.0) g/dL Hct 31.9 L (37.2-46.3) % MCH 24.6 L (27.0-32.0) pg MCHC 27.9 L (32.0-37.0) g/dL RDW 18.1 H (11.5-14.5) % Immature Gran # 0.05 H (0.00-0.04) X 10*3/uL Neutrophils # 8.06 H (1.80-7.70) X 10*3/uL Basophils # 0.12 H (0.00-0.10) X 10*3/uL Sodium 134 L (137-145) mmol/L Potassium 3.3 L (3.5-5.1) mmol/L Carbon Dioxide 36 H (22-30) mmol/L Creatinine 0.50 L (0.52-1.04) mg/dL POC Glucose (mg/dL) 137 H (70-110) mg/dL Calcium 8.0 L (8.4-10.2) mg/dL Total Protein 4.2 L (6.3-8.2) g/dL Albumin 2.1 L (3.5-5.0) g/dL Microbiology - Last 24 Hours (Table) 11/25/24 12:30 Gram Stain - Preliminary Peritoneal Fluid Body Fluid Culture - Preliminary 11/22/24 19:08 Blood Culture - Final Blood Assessment and Plan Plan: Abdominal pain with small bowel obstruction and a large loculated fluid collection displacing the normal appearing small bowel loops and colon with a transition zone appearing to be within the proximal jejunum. Patient has an NG tube for decompression. At the same time, the patient underwent an IR guided placement of a drainage catheter in regards to the abdominal fluid collection. Output from the NG tube remains considerably high. The abdominal drain is still in place. The patient continues to have bowel obstruction. She remains NPO. The ascitic fluid aspirated was positive for malignancy consistent with non- small cell lung cancer. Repeat EGD was done on 11/18/2024 showed gastritis without evidence of any duodenal obstruction. Abdominal pain, secondary to small bowel obstruction Stage IV lung cancer. 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 Previously maintained on chemotherapy with Alimta and carboplatin, could not tolerate side effects. PET scan taken on 07/25/2024 showing overall mixed response to therapy with slightly increased radiotracer activity throughout the right pleural and anterior right seventh rib with mild decrease in radiotracer activity within the right 10th rib and posterior costophrenic pleural region. Development of nonspecific left anterior peritoneal stranding changes with mild FDG uptake, could represent early peritoneal metastasis versus other etiologies such as infectious/inflammatory nature. Currently on Opdivo, has received 2 infusions so far. She has a known history of lung cancer originally diagnosed with wedge resection of the left upper lobe October 2019, as well as, a right lung resection in February 2021. A follow-up PET scan in February 2023 indicating possible disease recurrence. In July, she had undergone a right pleural biopsy which was positive for invasive poorly differentiated non-small cell carcinoma consistent with pulm onary adenocarcinoma. Her established oncologist is Dr. Castillo. Previous hospitalization, secondary to opioid-induced constipation. Advanced COPD with an FEV1 of 31% of predicted The patient has ongoing volume loss and extensive pleural-parenchymal opacities throughout the right hemithorax and the patient has a pleural rind in the lower lung there is a progressively increasing since 2022. There is also confluent lower lobe opacities that have increased since 2022 and this is consistent with progression of her underlying non-small cell lung cancer Chronic hypoxic respiratory failure maintained on oxygen 2 L/min nasal cannula History of pulmonary embolism, maintained on anticoagulation with Eliquis History of hyperlipidemia. History of gastroesophageal reflux disease. History of tobacco use. Plan: Keep the patient n.p.o. Will discuss the possibility and the need for TPN by general surgery Keep the patient oxygen 3 L/min nasal cannula Keep the NG tube in place for small bowel decompression The patient had a follow-up EGD stated it showed no evidence of any duodenal obstruction Gastric fluid is malignant IV fluids IV Zosyn General surgery is on the case Overall prognosis remains poor and will continue to follow
[2024-11-29 00:25] LABS: Glucose,Whole Blood 139 mg/dL (70-110)
[2024-11-29 06:05] LABS: Glucose,Whole Blood 111 mg/dL (70-110)
[2024-11-29 08:29] LABS: HCT 31.3 % (37.2-46.3); HGB 8.9 g/dL (12.0-15.0); MCH 25.4 pg (27.0-32.0); MCHC 28.4 g/dL (32.0-37.0); MCV 89.4 FL (80.0-97.0); Mean Platelet Volume 10.3 FL (9.5-12.2); NRBC Per 100 WBC 0 X 10*3/uL (0.00-0.01); Platelet Count 462 X 10*3/uL (140-440); RDW 17.9 % (11.5-14.5); WBC 12.47 X 10*3/uL (4.50-10.00)
[2024-11-29 11:05] LABS: ALT 15 U/L (8-44); AST 16 U/L (13-35); Albumin 2.2 g/dL (3.8-4.9); Albumin/Globulin Ratio 1.38 Ratio (1.60-3.17); Alkaline Phosphatase 70 U/L (41-126); Blood Urea Nitrogen 5.5 mg/dL (9.0-27.0); Calcium 7.6 mg/dL (8.7-10.3); Chloride 102 mmol/L (96-109); Globulin 1.6 g/dL (1.6-3.3); Glucose 109 mg/dL (70-110); Magnesium 1.3 mg/dL (1.5-2.4); Potassium 3.2 mmol/L (3.5-5.5); Sodium 142 mmol/L (135-145); Total Bilirubin <0.2 mg/dL (0.3-1.2); Total Protein 3.8 g/dL (6.2-8.2)
[2024-11-29 12:23] LABS: Glucose,Whole Blood 119 mg/dL (70-110)
--- NOTE | 2024-11-29 14:21 | P.PN ---
Progress Note - Text Progress Note Date: 11/29/24 CHIEF COMPLAINT: Abdominal pain HISTORY OF PRESENT ILLNESS: Patients IR drain noted to be dislodged. She is tolerating CLD. Abdominal pain is controlled. PHYSICAL EXAM: VITAL SIGNS: Reviewed. GENERAL: Well-developed in no acute distress. ABDOMEN: soft, nondistended. Diffuse tenderness. NEUROLOGIC: Alert and oriented. Cranial nerves II through XII grossly intact. ASSESSMENT: 1. Partial small bowel obstruction within the third portion of the duodenum 2. Complex fluid collection in the anterior abdomen status post drain placement. 3. IR drain Dislodged 4. Stage IV lung cancer PLAN: -EGD performed 11/28 showed gastritis with no obstruction -Advanced to Full Liquid Diet -IR reconsulted for new IR drain -Follow-up on cytology results -Continue antibiotics Josue Garcia DO [facility] [phone]
[2024-11-29] MEDS: POTASSIUM CHLORIDE ER 20 MEQ TAB.ER PO STA (15:04)
[2024-11-29] MEDS: IOPAMIDOL CONTRAST (ORAL USE) VIAL PO PRN (16:05)
--- NOTE | 2024-11-29 16:43 | P.PN ---
Subjective Progress Note Date: 11/29/24 Hospital course: Patient is a very pleasant 59-year-old female with a past medical history of COPD with chronic hypoxic respiratory failure home oxygen dependence on 2 L, stage IV lung cancer on Opdivo and has received 2 infusions so far follows outpatient with Dr. Castillo, history of previous pulmonary emboli, hyperlipidemia, opioid-induced constipation, and GERD. Patient presented to the hospital on 11/22/24 with a chief complaint of complaint of generalized weakness, abdominal pain, nausea, and vomiting. Upon arrival to our facility, patient underwent evaluation in the emergency department. Vital signs upon arrival show blood pressure 118/74, heart rate 130, respiratory rate 20, temp 98.1 F, and SpO2 of 96% on room air. EKG completed showing sinus tachycardia at 123 bpm. Labs completed and reviewed. CBC showing leukocytosis with WBC count of 12.4, normocytic anemia with hemoglobin of 10.2, and thrombocytosis with platelet count of 650. Coagulation profile showing elevated INR of 1.2 and elevated D- dimer of 1.64. BMP showing hypochloremic hyponatremia with sodium of 131 and chloride of 91. Blood glucose was low at 68. Lactic acid was normal findings at 1.1. Magnesium 1.7. Liver profile showing elevated alkaline phosphatase of 129 otherwise normal findings. Troponin was negative at less than 0.012. proBNP 215. Albumin slightly low at 3.3. Procalcitonin negative at 0.19. Urinalysis negative for infection. Influenza A, influenza B, RSV, and COVID PCR negative. CT abdomen and pelvis was completed showing possible small bowel obstruction at the third position of the duodenum with significant dilation of the duodenum, large fluid-filled loculated collection within the anterior abdomen, small pleural effusion, and thickened left adrenal gland. Chest x-ray completed showing moderate right and minimal posterior left pleural effusions. CTA chest reporting stable appearance of patient's right lung cancer, new left pleural effusion, and subcarinal lymph node. Patient admitted under our services with consultation to general surgery for small bowel obstruction and manager qa for bilateral pleural effusions. On 11/25/2026 patient underwent insertion of ultrasound guided abdominal drain placement for visceral fluid drainage. On 11/26/2024 patient underwent small bowel follow-through which revealed findings suggestive of proximal obstruction within the region of the third portion of the duodenum. Patient taken for EGD by Dr. Phillips on 11/28/2024. EGD reporting mild inflammatory changes in the first portion of the duodenum, biopsies were obtained and a portion of the gastric body just distal to the GE junction with findings of focal gastritis versus early ulceration and biopsies were obtained from this location as well. Physical exam: Patient seen and fully evaluated at bedside this morning. She is currently tolerating clear liquid diet and denies any episodes of nausea or vomiting. Patient continues to deny passing flatus but does report having a bowel movement last night. Vital signs reviewed and stable. General: Nontoxic, no distress and appears stated age. Thin and frail, chronica lly ill-appearing. Derm: Skin warm and dry, normal coloration for ethnicity. Head: Atraumatic, normocephalic and symmetric. Eyes: EOM's intact, no lid lag, and anicteric sclera Mouth: no lip lesions, mucus membranes moist Cardiovascular: regular rate and rhythm with normal S1S2, no murmur, positive posterior tibial pulses bilaterally, and cap refill < 2 seconds. Lungs: Respirations even, regular, and unlabored on room air. Lungs diminished worse on right, no rhonchi, no rales, no wheezing, and no accessory muscle usage. Abdominal: soft distended, diffuse tenderness upon palpation, no guarding, no appreciable organomegaly. Abdominal drain in place. Ext: ROM intact. No gross muscle atrophy, bilateral lower extremity pedal edema, no contractures Neuro: Speech clear, face symmetrical and CN II-XII grossly intact with no noted focal neuro deficits Psych: Alert and oriented to person, place, time, and situation. Appropriate and pleasant affect. Assessment and Plan of Care: Partial small bowel obstruction with complex fluid collection in anterior abdomen Hypochloremic hyponatremia Opioid-induced constipation -General Surgery following, discussed plan of care with Dr. Phillips. -Patient underwent EGDby Dr. Phillips on 11/28/2024. EGD reporting mild inflammatory changes in the first portion of the duodenum, biopsies were obtained and a portion of the gastric body just distal to the GE junction with findings of focal gastritis versus early ulceration and biopsies were obtained from this location as well. -Continue Reglan milligrams every 6 hours scheduled for continued promotion of gastric motility. -Continue Linzess 145 mcg daily and Senokot 8.6 mg twice daily. -GI prophylaxis with Protonix 40 mg IVP twice daily. -NG tube discontinued on 11/28/2024. -Close monitoring of I's and O's Recurrent pleural effusions with chronic small right pleural effusion, recurrent metastatic infusions Stage IV non-small cell lung cancer with history of wedge resection of left upper lobe and wedge resection of right lower lobe COPD with chronic hypoxic respiratory failure -Pulmonology following, reviewed documentation in chart. -Continue supplemental oxygen titrate as needed to maintain SpO2 equal to or greater than 92%. -Continue DuoNebs scheduled 4 times daily and as needed for shortness of breath and/or wheezing. -Continue Symbicort 160-4.5 mcg inhaler 2 puffs twice daily -Encourage incentive spirometry. -Currently on Opdivo, has received 2 infusions so far and follows outpatient with Dr. Castillo. Hypomagnesemia Magnesium 1.3. Orders placed for mag sulfate 4 g IVPB x 1 dose and we will continue to monitor for resolution of hypomagnesemia with repeat a.m. labs. Hypokalemia Potassium 3.2. Orders placed for K-Dur 40 mill equivalents p.o. x 1 dose and we will continue to monitor for resolution of hypokalemia with repeat a.m. labs Leukocytosis, likely reactive Thrombocytosis, likely reactive -Procalcitonin negative. Blood culture showing no growth to date. Visceral/peritoneal fluid culture negative. -Patient completed 7-day course of IV antibiotics with Zosyn 3.375 g every 8 hours. Will hold off on further antibiotics at this time. Data and imaging reviewed: Vital signs reviewed. Blood pressure 133/84, heart rate 113, respiratory rate 16, temp 97.8 F, and SpO2 100% on 2 L. Morning labs reviewed. CBC showing leukocytosis with WBC count of 12.47, hemoglobin 8.9, and thrombocytosis with platelet count of 462. BMP showing hypokalemia with potassium of 3.2 and hypercarbia with bicarb of 33.0. Blood glucose 109. Calcium 7.6 with corrected calcium of 9.0. Magnesium 1.3 liver profile unremarkable with exception of hypoalbuminemia with albumin of 2.2. CODE STATUS: Full code DVT prophylaxis: Heparin Anticipated discharge date: Pending clinical course Anticipated discharge place: Pending clinical course Patient was seen independently by Nurse Pracitioner. This document was prepared using [employer] dictation software. Please allow for errors in export freight clerk, while rare they do occur. Charlie Hylton NP rendered care for this patient independently, reviewed the findings and plan as documented in the note above and agree with plan. I did not physically speak with or examine the patient on this date. Objective - Vital Signs Vital signs: Vital Signs Temp 97.8 F 11/29/24 08:13 Pulse 113 H 11/29/24 08:13 Resp 16 11/29/24 08:13 BP 133/84 11/29/24 08:13 Pulse Ox 100 11/29/24 08:13 FiO2 Intake & Output 11/28/24 11/29/24 11/29/24 18:59 06:59 18:59 Intake Total 860 237 237 Output Total 1220 Balance -360 237 237 Weight 56.7 kg Intake: IV 300 Oral 560 237 237 Output: Gastric Drainage 220 Drainage 850 Abdomen 850 Urine 150 Other: Voiding Method Bedside Commode Bedside Commode Diaper Diaper External Catheter # Voids 1 2 # Bowel Movements 1 - Labs CBC & Chem 7: 11/29/24 06:31 11/29/24 06:31 Labs: Abnormal Lab Results - Last 24 Hours (Table) 11/28/24 11/28/24 11/28/24 Range/Units 08:12 08:12 17:10 WBC 10.63 H (4.50-10.00) X 10*3/uL RBC 3.62 L (4.10-5.20) X 10*6/uL Hgb 8.9 L (12.0-15.0) g/dL Hct 31.9 L (37.2-46.3) % MCH 24.6 L (27.0-32.0) pg MCHC 27.9 L (32.0-37.0) g/dL RDW 18.1 H (11.5-14.5) % Plt Count (140-440) X 10*3/uL Immature Gran # 0.05 H (0.00-0.04) X 10*3/uL Neutrophils # 8.06 H (1.80-7.70) X 10*3/uL Basophils # 0.12 H (0.00-0.10) X 10*3/uL Sodium 134 L (137-145) mmol/L Potassium 3.3 L (3.5-5.1) mmol/L Carbon Dioxide 36 H (22-30) mmol/L Creatinine 0.50 L (0.52-1.04) mg/dL POC Glucose (mg/dL) 137 H (70-110) mg/dL Calcium 8.0 L (8.4-10.2) mg/dL Total Protein 4.2 L (6.3-8.2) g/dL Albumin 2.1 L (3.5-5.0) g/dL 11/29/24 11/29/24 11/29/24 Range/Units 00:23 06:04 06:31 WBC 12.47 H (4.50-10.00) X 10*3/uL RBC 3.50 L (4.10-5.20) X 10*6/uL Hgb 8.9 L (12.0-15.0) g/dL Hct 31.3 L (37.2-46.3) % MCH 25.4 L (27.0-32.0) pg MCHC 28.4 L (32.0-37.0) g/dL RDW 17.9 H (11.5-14.5) % Plt Count 462 H (140-440) X 10*3/uL Immature Gran # (0.00-0.04) X 10*3/uL Neutrophils # (1.80-7.70) X 10*3/uL Basophils # (0.00-0.10) X 10*3/uL Sodium (137-145) mmol/L Potassium (3.5-5.1) mmol/L Carbon Dioxide (22-30) mmol/L Creatinine (0.52-1.04) mg/dL POC Glucose (mg/dL) 139 H 111 H (70-110) mg/dL Calcium (8.4-10.2) mg/dL Total Protein (6.3-8.2) g/dL Albumin (3.5-5.0) g/dL Microbiology - Last 24 Hours (Table) 11/25/24 12:30 Gram Stain - Preliminary Peritoneal Fluid Body Fluid Culture - Preliminary 11/22/24 19:08 Blood Culture - Final Blood
[2024-11-29 17:08] LABS: Glucose,Whole Blood 136 mg/dL (70-110)
[2024-11-29] MEDS: LORazepam 2 MG/ML INJ IV STA ×2 (17:36→20:54)
--- NOTE | 2024-11-29 19:03 | CT ---
EXAMINATION TYPE: CT abdomen pelvis w con DATE OF EXAM: 11/29/2024 6:56 PM COMPARISON: 11/22/2024 CLINICAL INDICATION: Female, 59 years old with history of abdominal fluid collection; Abdominal fluid collection. TECHNIQUE: Axial CT abdomen pelvis w con;Sagittal and coronal reformats were created on a separate w orkstation. Contrast used:100ml mL of Isovue 300 with IV Contrast, (none if empty) Oral contrast used: with Oral Contrast (none if empty) CT DLP: 617.8 mGycm, Automated exposure control for dose reduction was used. FINDINGS: LOWER CHEST: No pleural effusions left greater than right. ABDOMEN LIVER: Unremarkable GALLBLADDER AND BILE DUCTS: Unremarkable. PANCREAS: Unremarkable. SPLEEN: Unremarkable. ADRENAL GLANDS: Unremarkable. KIDNEYS AND URETERS: No evidence of hydronephrosis or renal calculus. The ureters are unremarkable. Discrete IV contrast in the renal collecting system and layering in the posterior lateral aspect of t he bladder. PELVIS BLADDER: No evidence for wall thickening or mass given limitations of exam. REPRODUCTIVE: Unremarkable. ABDOMEN & PELVIS STOMACH AND BOWEL: No evidence of bowel obstruction. PERITONEUM/RETROPERITONEUM: No evidence of pneumoperitoneum. Decrease in fluid collections of the abd omen. Drainage catheter has been removed.. Mild thickening of the peritoneum correlate for peritoniti s. VASCULATURE: No evidence of aortic aneurysm. MUSCULOSKELETAL: No acute osseous abnormalities LYMPH NODES: No gross evidence for lymphadenopathy. SOFT TISSUE/ABDOMINAL WALL: Diffuse anasarca throughout the soft tissue. IMPRESSION: 1. Decrease in abdominal fluid compared to prior, previously large..Drainage tube has been removed. 2. Bilateral pleural effusions suggested. 3. Increased soft tissue in the omentum suggestive of edema and/or omental caking. Attention on foll ow-up imaging. 4. Diffuse anasarca. 5. Excreted IV contrast in the posterior lateral aspect of the urinary bladder. [facility], , 11/29/2024 7:01 PM
--- NOTE | 2024-11-29 20:18 | P.PN ---
Subjective Progress Note Date: 11/29/24 59-year-old female well-known to me. She presents to the emergency department, on November 22, at about 3 PM, complaining of generalized weakness, and abdominal pain. She apparently was in the hospital recently, for multiple problems including severe abdominal pain, related to opioid induced constipation, nausea, and vomiting. The patient also has a history of COPD, and has a history of non- small cell lung cancer, involving both lungs, with previous resections, done at [facility]. She unfortunately has recurrent lung cancer. She is not undergoing any treatment at this time. The patient is seen today in room 367. Her chest x-ray shows a right-sided pleural effusion, and a small left-sided pleural effusion. Her CT of the chest, shows no progression of her lung cancer. She is currently on 2 L. She is thought to have a possible bowel obstruction, and an NG tube will be placed. She is getting lactated Ringer's at 100 cc an hour. She is getting nasal O2 at 2 L. Current labs include white count 13.8, hemoglobin 9.6, hematocrit 32.8, and a platelet count of 547,000. Sodium 132, potassium 3.8, chloride 95, CO2 25, BUN 13, creatinine 0.55. Glucose was 92. Calcium is 8.7. Procalcitonin level was normal at 0.19. Viral screen was negative. CT scan of the abdomen and pelvis appears to show an obstruction, at the third portion of the duodenum, and significant dilatation of the duodenum, with a large fluid-filled loculated collection within the anterior abdomen. There is a small left pleural effusion. Progress note dated November 24, 2024. 59-year-old female seen today in room 367. She was admitted with abdominal discomfort. She is currently resting comfortably in bed. No acute distress. She is getting adequate pain control. She is currently on room air. An NG tube was noted. She is getting saline at 10 cc an hour, and lactated Ringer's at 75 cc an hour. Procalcitonin level is 0.19. She continues on Zosyn. Current labs include a white count of 11, hemoglobin 8.9, hematocrit 29.8, platelet count of 534,000. Sodium 133, potassium 3.8, chlorides 94, CO2 29, BUN 13, creatinine 0.63. Blood cultures are negative. Chest x-ray is essentially unchanged. On 11/25/2024, the patient is being seen for a follow-up. The patient has an NG tube in place for small bowel obstruction the patient has also a complex fluid collection in the anterior abdomen as revealed on the CAT scan of the abdomen pelvis was obtained on 11/22/2024. Specifically, the patient has obstruction likely at the level of the third portion of the duodenum with significant dilata tion of the duodenum. Large fluid filled loculated collection is also present in the anterior abdomen with a small left-sided pleural effusion. The proximal bowel loops are dilated and there is a large loculated fluid collection displacing normal-appearing small bowel loops and colon. The transition point is possibly the proximal jejunum. CT of the chest was also done on 11/22/2024 revealing a small left-sided pleural effusion. No evidence of any pulmonary embolism. There was a subcarinal lymph node in addition to some consolidation involving the right lung base. The patient has an NG tube in place and total amount of output has been 400 cc for yesterday and 200 cc this morning. [facility] of a drain in the abdomen with a total of 2.6 L of dark red tea colored fluid being removed and the fluid was sent for cytology. The patient remains on IV Zosyn. The patient remains on IV fluids. NG tube attached to low intermittent suction.Labs from today showed a white cell count of 10.8 with a hemoglobin 8.5 and a platelet count of 562. The sodium is at 134, potassium is at 3.8, BUN is 12 with a creatinine of 0.6. On 11/26/2024, the patient is being seen for a follow-up. The patient underwent a IR guided drainage of the abdominal fluid and immediately a total of 2.4 L of fluid was aspirated. The drainage is less on today's evaluation. NG tube remains in place for now and the patient has produced approximately 400 cc over the past 8 hours from the NG tube and a total of 120 cc from the abdominal drain. Bowel sounds are hypoactive. She is passing flatus. She remains NPO. No bowel movement activity for now. Respiratory status remains stable and the patient remains on oxygen at 3 L with a pulse ox of 99 to 100%. The patient remains on DuoNeb the regiment [id number] and Symbicort as maintenance regarding COPD. The patient remains on IV Zosyn as an empiric antibiotic coverage. Rest of the medications remain unchanged. General surgery is on the case. The patient remains NPO. The patient may need a small bowel follow- through if there is no improvement over the next 24 to 48 hours. On 11/27/2024, condition essentially unchanged. The patient remains NPO. NG tube is in place and total amount of output from the NG tube has been 600 cc overnight. The same time, the patient had another 150 cc drainage from the abdominal drain. Abdomen is not distended. Bowel sounds are absent. No bowel movement activity yet. The patient is scheduled to undergo an EGD tomorrow. Awaiting ascitic fluid cytology. White cell count is at 12 with a hemoglobin 9 and a platelet count of 428. BUN is 6 with a creatinine of 0.5 and a sodium levels at 135. Overall respiratory status is stable. No dyspnea at rest and she remains on 3 days of oxygen by nasal cannula with a pulse ox of 99 to 100%. No other significant events overnight. The patient needs to be considered for TPN. 1. 11/28/2024, the patient underwent EGD this morning and the patient was found to have no evidence of any duodenal obstruction. NG tube is still in place attached to low intermittent suction. Patient is on D5 normal saline at rate of 75 cc an hour. The patient may need to be started on TPN for nutritional support. Remains on IV Zosyn. Overall respiratory status is unchanged and the patient remains on 2 L of oxygen nasal cannula with a pulse ox of 99%. White cell count is at 10 with a hemoglobin 8.9 and a platelet count of 438. BUN is at 7 with a creatinine of 0.5 and a sodium level is at 134 and a potassium level is at 3.3. The ascitic fluid that was aspirated earlier was malignant and consistent with pulmonary non-small cell lung cancer. The output from the NG tube has been 750 cc over the past 8 hours. The abdominal drain has produced another 500 cc of output. On 11/29/2024, the patient's abdominal drain has been dislodged and the NG tube has been removed. She is trying to take some clear liquid diet. She had a small bowel movement. Noted ascitic fluid that was drained earlier was consistent with malignancy. A follow-up CAT scan of the abdomen was ordered for today. EGD that was done on 11/28/2024 showed gastritis without any obstruction. Respiratory status remains unchanged. She remains on 3 L with a pulse ox of 99%. She is quite debilitated. Objective - Vital Signs Vital signs: Vital Signs Temp 98.5 F 11/29/24 15:03 Pulse 127 H 11/29/24 19:29 Resp 16 11/29/24 15:03 BP 141/80 11/29/24 19:29 Pulse Ox 99 11/29/24 19:29 FiO2 Intake & Output 11/29/24 11/29/24 11/30/24 06:59 18:59 06:59 Intake Total 237 2591 Output Total 1100 Balance 237 1491 Intake: Oral 237 2591 Output: Urine 1100 Other: Voiding Method Bedside Commode Bedside Commode Diaper Diaper External Catheter External Catheter # Voids 2 # Bowel Movements 1 1 - Exam No acute distress, oriented 3. Currently on 3 days of oxygen by nasal cannula. Calm and comfortable. NG tube removed HEENT examination is grossly unremarkable. Mucous membranes are moist. No oral lesions. NG tube is noted. Neck supple. Full range of motion. No adenopathy thyromegaly or neck vein distention. Cardiovascular examination reveals regular rhythm rate. S1-S2 normal. No S3 or S4. No discernible murmur noted. Lungs reveal diminished breath sounds on the right with rhonchi. The left lung is essentially clear. Abdomen mildly distended, without bowel sounds. Tender on palpation. The abdominal drain removed Extremities are intact. No cyanosis clubbing or edema. Skin is without rash or lesion. Neurologic examination is brief but nonfocal. Profound weakness in all 4 extremities. - Labs CBC & Chem 7: 11/29/24 06:31 11/29/24 06:31 Labs: Abnormal Lab Results - Last 24 Hours (Table) 11/29/24 11/29/24 11/29/24 Range/Units 00:23 06:04 06:31 WBC 12.47 H (4.50-10.00) X 10*3/uL RBC 3.50 L (4.10-5.20) X 10*6/uL Hgb 8.9 L (12.0-15.0) g/dL Hct 31.3 L (37.2-46.3) % MCH 25.4 L (27.0-32.0) pg MCHC 28.4 L (32.0-37.0) g/dL RDW 17.9 H (11.5-14.5) % Plt Count 462 H (140-440) X 10*3/uL Potassium (3.5-5.5) mmol/L Carbon Dioxide (21.6-31.8) mmol/L BUN (9.0-27.0) mg/dL Creatinine (0.6-1.5) mg/dL BUN/Creatinine Ratio (12.00-20.00) Ratio POC Glucose (mg/dL) 139 H 111 H (70-110) mg/dL Calcium (8.7-10.3) mg/dL Magnesium (1.5-2.4) mg/dL Total Bilirubin (0.3-1.2) mg/dL Total Protein (6.2-8.2) g/dL Albumin (3.8-4.9) g/dL Albumin/Globulin Ratio (1.60-3.17) Ratio 11/29/24 11/29/24 11/29/24 Range/Units 06:31 12:22 17:07 WBC (4.50-10.00) X 10*3/uL RBC (4.10-5.20) X 10*6/uL Hgb (12.0-15.0) g/dL Hct (37.2-46.3) % MCH (27.0-32.0) pg MCHC (32.0-37.0) g/dL RDW (11.5-14.5) % Plt Count (140-440) X 10*3/uL Potassium 3.2 L (3.5-5.5) mmol/L Carbon Dioxide 33.0 H (21.6-31.8) mmol/L BUN 5.5 L (9.0-27.0) mg/dL Creatinine 0.5 L (0.6-1.5) mg/dL BUN/Creatinine Ratio 11.00 L (12.00-20.00) Ratio POC Glucose (mg/dL) 119 H 136 H (70-110) mg/dL Calcium 7.6 L (8.7-10.3) mg/dL Magnesium 1.3 L (1.5-2.4) mg/dL Total Bilirubin <0.2 L (0.3-1.2) mg/dL Total Protein 3.8 L (6.2-8.2) g/dL Albumin 2.2 L (3.8-4.9) g/dL Albumin/Globulin Ratio 1.38 L (1.60-3.17) Ratio Microbiology - Last 24 Hours (Table) 11/25/24 12:30 Anaerobic Culture - Final Abdominal Fluid 11/25/24 12:30 Gram Stain - Final Peritoneal Fluid Body Fluid Culture - Final Assessment and Plan Plan: Abdominal pain with small bowel obstruction and a large loculated fluid collection displacing the normal appearing small bowel loops and colon with a transition zone appearing to be within the proximal jejunum. Patient has an NG tube for decompression. At the same time, the patient underwent an IR guided placement of a drainage catheter in regards to the abdominal fluid collection. Output from the NG tube remains considerably high. The abdominal drain is still in place. The patient continues to have bowel obstruction. The ascitic fluid aspirated was positive for malignancy consistent with non-small cell lung cancer. Repeat EGD was done on 11/18/2024 showed gastritis without evidence of any duodenal obstruction. The NG tube and the abdominal drain has been dislodged and the patient was advised to clear liquid diet. Abdominal pain, secondary to small bowel obstruction Stage IV lung cancer. 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 Previously maintained on chemotherapy with Alimta and carboplatin, could not tolerate side effects. PET scan taken on 07/25/2024 showing overall mixed response to therapy with slightly increased radiotracer activity throughout the right pleural and anterior right seventh rib with mild decrease in radiotracer activity within the right 10th rib and posterior costophrenic pleural region. Development of nonspecific left anterior peritoneal stranding changes with mild FDG uptake, could represent early perit leon metastasis versus other etiologies such as infectious/inflammatory nature. Currently on Opdivo, has received 2 infusions so far. She has a known history of lung cancer originally diagnosed with wedge resection of the left upper lobe October 2019, as well as, a right lung resection in February 2021. A follow-up PET scan in February 2023 indicating possible disease recurrence. 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 Her established oncologist is Dr. Castillo. Previous hospitalization, secondary to opioid-induced constipation. Advanced COPD with an FEV1 of 31% of predicted The patient has ongoing volume loss and extensive pleural-parenchymal opacities throughout the right hemithorax and the patient has a pleural rind in the lower lung there is a progressively increasing since 2022. There is also confluent lower lobe opacities that have increased since 2022 and this is consistent with progression of her underlying non-small cell lung cancer Chronic hypoxic respiratory failure maintained on oxygen 2 L/min nasal cannula History of pulmonary embolism, maintained on anticoagulation with Eliquis History of hyperlipidemia. History of gastroesophageal reflux disease. History of tobacco use. Plan: Give the patient a trial of clear liquid diet CAT scan of the abdomen and pelvis with p.o. contrast Will discuss the possibility and the need for TPN by general surgery Keep the patient oxygen 3 L/min nasal cannula The patient had a follow-up EGD stated it showed no evidence of any duodenal obstruction Ascitic fluid is malignant IV fluids IV Zosyn General surgery is on the case Consult medical oncology Overall prognosis remains poor and will continue to follow
--- NOTE | 2024-11-29 22:35 | P.EN ---
Received a message on [employer] around 7:30 PM from RN for 59-year-old female with a history of stage IV lung cancer (currently on immunotherapy with Dr. Castillo), COPD on 2 L at home, history of PE (, hyperlipidemia and GERD with concerns concerns for fall and tachycardia with heart in 130s. According to the RN, patient slid out of her chair while trying to get to her bed. They found her on the floor on her buttocks by the chair. Patient was conscious and denied any head injury or injury else where. The patient vehemently denied head trauma. Patient was seen and examined by me at bedside. EKG was performed which showed patient had sinus tachycardia with a ventricular rate of 128, TX interval 136 ms, QRS duration 84 ms, QTc 449 ms. 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 Patient denies shortness of breath, cough, chest pain, sputum production, urgency, frequency, dysuria, hematuria. Vitals: Temperature 98.5 F, pulse rate 127, respiratory 16, blood pressure 141/80, oxygen saturation 99% on room air at 3 L nasal cannula Labs from 11/29/2024 shows WBC 12.45 hemoglobin 8.9, platelet count 462, sodium 142, potassium 3.2, chloride 102, bicarb 23, BUN 5.5, creatinine 0.5 potassium 7.6, magnesium 1.3, albumin 2.2, General: Nontoxic, no distress, appears older than stated age, malnourished and emaciated Derm: Warm, moist Head: Atraumatic, normocephalic Cardiovascular: S1-S2 regular with no murmur heart with positive peripheral pulses, 3+ bilateral LE edema Lungs: Decreased breath sounds bilaterally Abdominal: Soft, nontender, nondistended, bowel sound positive. No rebound tenderness Ext: Gross muscle atrophy Neuro:. Nerve II to XII grossly intact with no focal neurological deficit noted. Psych: AOx3 Assessment/plan: Received a message on [employer] around 7:30 PM from RN for 59-year-old female with a history of stage IV lung cancer (currently on immunotherapy with Dr. Castillo), COPD on 2 L at home, history of PE, hyperlipidemia and GERD with concerns concerns for fall and tachycardia with heart in 130s Leukocytosis, reactive versus infectious, with differentials including stage IV lung cancer, pneumonia, UTI and other etiologies Sinus tachycardia secondary to above White blood cell count 12.45 increased from 10.63 Sepsis criteria: 2/4 Heart rate in 130s Continue cardiac telemetry Chest x-ray shows concerns for multilobar pneumonia and presence of bilateral pleural effusions. Patient completed IV antibiotic with Zosyn 3.375 g every 8 hours for 7 days on 11/29/2024 Order IV BP Zithromax 500 mg once daily and IVPB ceftriaxone 1 g daily Order procalcitonin Continue with IV D5W with normal saline at 75 cc/h. Order urinalysis to rule out urinary tract infection Order lactic acid Wells criteria for pulmonary embolism: moderate risk Order LE doppler for DVT Patient is status post 0.5 mg Ativan IVP once stat #Hypokalemia Potassium 3.2 patient is status post 40 mg of KCl Order 40 mg of potassium chloride IV once stat BMP in a.m.
[2024-11-29] MEDS: DEXTROSE 5%-0.9% NACL 1,000 ML IV SCH (23:51)
[2024-11-29] MEDS: SCOPOLAMINE 1 MG/72 HR PATCH TRANSDERM STA (23:56)
[2024-11-30] LABS: Glucose,Whole Blood 100 mg/dL (70-110)
--- NOTE | 2024-11-30 01:14 | XR ---
EXAM: XR Chest, 1 View CLINICAL HISTORY: ITS.REASON XR Reason: r/o pneumonia TECHNIQUE: Frontal view of the chest. COMPARISON: No relevant prior studies available. FINDINGS: Lungs: Bilateral airspace consolidations, concerning for multilobar pneumonia. Pleural space: Moderate RIGHT and small LEFT pleural effusions. No pneumothorax. Heart: Cardiomegaly. Mediastinum: Unremarkable. Normal mediastinal contour. Bones/joints: Unremarkable. No acute fracture. Tubes, lines and devices: RIGHT Port-A-Cath terminates the SVC. IMPRESSION: 1. Bilateral airspace consolidations, concerning for multilobar pneumonia. 2. Moderate RIGHT and small LEFT pleural effusions.
[2024-11-30] MEDS: POTASSIUM CHLORIDE ER 20 MEQ TAB.ER PO STA ×2 (03:36→13:57)
[2024-11-30] MEDS: POTASSIUM CHLORIDE 40 MEQ in WATER FOR INJECTION 1 100ML.BAG IVPB STA (03:36)
[2024-11-30] MEDS: POTASSIUM CHLORIDE 10 MEQ in WATER FOR INJECTION 1 100ML.BAG IVPB SCH ×2 (03:37→12:07)
[2024-11-30] MEDS: AZITHROMYCIN 500 MG in SODIUM CHLORIDE 0.9% 250 ML IVPB SCH (04:42)
[2024-11-30 05:54] LABS: Glucose,Whole Blood 103 mg/dL (70-110)
[2024-11-30 07:40] LABS: Glucose,Whole Blood 116 mg/dL (70-110)
[2024-11-30 10:10] LABS: Anisocytosis Slight; HGB 9.5 gm/dL (11.4-16.0); Hypochromasia Marked; MCH 25.3 pg (25.0-35.0); MCHC 27.8 g/dL (31.0-37.0); MCV 90.9 fL (80.0-100.0); Mean Platelet Volume 7.3; Platelet Count 465 k/uL (150-450); RBC 3.74 m/uL (3.80-5.40); RDW 16.8 % (11.5-15.5); WBC 17.1 k/uL (3.8-10.6)
[2024-11-30 10:19] LABS: ALT 14 U/L (4-34); AST 19 U/L (14-36); African American GFR (CKD) >90 (>60 ml/min/1.73 sqM); Albumin 1.9 g/dL (3.5-5.0); Alkaline Phosphatase 78 U/L (38-126); Anion Gap 3 mmol/L; Blood Urea Nitrogen 5 mg/dL (7-17); Calcium 7.4 mg/dL (8.4-10.2); Carbon Dioxide 33 mmol/L (22-30); Chloride 99 mmol/L (98-107); Glucose 158 mg/dL (74-99); Magnesium 1.3 mg/dL (1.6-2.3); Non-African American GFR(CKD) >90 (>60 ml/min/1.73 sqM); Potassium 2.9 mmol/L (3.5-5.1); Sodium 135 mmol/L (137-145); Total Bilirubin 0.2 mg/dL (0.2-1.3); Total Protein 3.9 g/dL (6.3-8.2)
--- NOTE | 2024-11-30 10:48 | US ---
EXAMINATION TYPE: US venous doppler duplex LE BI DATE OF EXAM: 11/30/2024 10:38 AM COMPARISON: 11/14/24 CLINICAL INDICATION: Female, 59 years old with history of r/o dvt; RO DVT, swelling and pain. Pitting edema. Pt on heparin. Hx PE, Pain TECHNIQUE: The lower extremity deep venous system is examined utilizing real time linear array sonog piper with graded compression, color doppler sonography, and spectral doppler. SIDE PERFORMED: Bilateral FINDINGS: VESSELS IMAGED: Common Femoral Vein Deep Femoral Vein Greater Saphenous Vein * Femoral Vein Popliteal Vein Small Saphenous Vein * Proximal Calf Veins (* superficial vessels) Exam done portable with patient in reclining chair Right Leg: Negative for DVT, Color Doppler imaging shows patency of the vessels. Spectral waveforms are within normal limits. Left Leg: Negative for DVT, Color Doppler imaging shows patency of the vessels. Spectral waveforms a re within normal limits. *edema seen bilateral calfs and left thigh IMPRESSION: 1. No ultrasound evidence for deep venous thrombosis. 2. Bilateral lower extremity soft tissue edema. [facility], , 11/30/2024 10:45 AM
[2024-11-30 10:49] LABS: Monocytes # (M) 0.51 k/uL (0-1.0); Neutrophils # (M) 15.39 k/uL (1.3-7.7); Neutrophils % (M) 90 %; Nucleated Red Blood Cells 0 /100 WBC (0-0); Total Cells Counted 100
--- NOTE | 2024-11-30 11:16 | P.PN ---
Subjective Progress Note Date: 11/30/24 Subjective: Patient seen and examined at bedside. Overnight patient was having difficulty breathing, possibly aspirated. Has had couple of bowel movements. Pertinent positives and negatives as discussed above, a complete review of systems was performed and all other systems are negative. Vitals Signs Reviewed. General: Nontoxic, no distress, appears at stated age, chronically ill-appearing Derm: Warm, dry Head: Atraumatic, normocephalic, symmetric Eyes: EOMI, no lid lag, anicteric sclera Mouth: No lip lesion, mucus membranes moist Cardiovascular: S1S2 reg, no murmur Lungs: CTA bilateral, no rhonchi, no rales, no accessory muscle use, supplemental oxygen Abdominal: Soft, nontender to palpation, no guarding, no appreciable organomegaly Ext: No gross muscle atrophy, no edema, no contractures Neuro: CN II-XI grossly intact, no focal neuro deficits Psych: Alert, oriented, appropriate affect Data Reviewed Today: Pertinent Labs: WBC 17.1, hemoglobin 9.5, platelet 465, sodium 135, potassium 2.9, creatinine 0.51, magnesium 1.3 Imaging: Dopplers negative for DVTs. 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 -Continue Linzess 145 mcg daily and Senokot 8.6 mg twice daily. -GI prophylaxis with Protonix 40 mg IVP twice daily. -NG tube discontinued on 11/28/2024 Hypokalemia -60 mill equivalent IV potassium Hypomagnesemia -4 g IV magnesium sulfate Hypovolemic hyponatremia -Continue D5 normal saline at 75 cc an hour Chronic: Neuropathy DVT ppx: Lovenox Code status: Full code Anticipated discharge place: Pending clinical course Anticipated discharge time: Pending clinical course Objective - Vital Signs Vital signs: Vital Signs Temp 98.0 F 11/30/24 07:00 Pulse 126 H 11/30/24 09:10 Resp 20 11/30/24 09:10 BP 103/63 11/30/24 07:00 Pulse Ox 98 11/30/24 09:00 FiO2 Intake & Output 11/29/24 11/30/24 11/30/24 18:59 06:59 18:59 Intake Total 2591 240 Output Total 1100 Balance 1491 240 Intake: Oral 2591 240 Output: Urine 1100 Other: Voiding Method Bedside Commode Bedside Commode Diaper Diaper Diaper External Catheter External Catheter # Voids 1 # Bowel Movements 1 1 - Labs CBC & Chem 7: 11/30/24 09:47 11/30/24 09:47 Labs: Abnormal Lab Results - Last 24 Hours (Table) 11/29/24 11/29/24 11/29/24 Range/Units 12:22 17:07 21:14 WBC (3.8-10.6) k/uL RBC (3.80-5.40) m/uL Hgb (11.4-16.0) gm/dL MCHC (31.0-37.0) g/dL RDW (11.5-15.5) % Plt Count (150-450) k/uL Neutrophils # (Manual) (1.3-7.7) k/uL D-Dimer (<0.60) mg/L FEU Sodium (137-145) mmol/L Potassium (3.5-5.1) mmol/L Carbon Dioxide (22-30) mmol/L BUN (7-17) mg/dL Creatinine (0.52-1.04) mg/dL Glucose (74-99) mg/dL POC Glucose (mg/dL) 119 H 136 H (70-110) mg/dL Plasma Lactic Acid [place] 2.2 H* (0.7-2.0) mmol/L Calcium (8.4-10.2) mg/dL Magnesium (1.6-2.3) mg/dL Total Protein (6.3-8.2) g/dL Albumin (3.5-5.0) g/dL 11/29/24 11/30/24 11/30/24 Range/Units 23:58 07:38 09:47 WBC 17.1 H (3.8-10.6) k/uL RBC 3.74 L (3.80-5.40) m/uL Hgb 9.5 L (11.4-16.0) gm/dL MCHC 27.8 L (31.0-37.0) g/dL RDW 16.8 H (11.5-15.5) % Plt Count 465 H (150-450) k/uL Neutrophils # (Manual) 15.39 H (1.3-7.7) k/uL D-Dimer 1.23 H (<0.60) mg/L FEU Sodium (137-145) mmol/L Potassium (3.5-5.1) mmol/L Carbon Dioxide (22-30) mmol/L BUN (7-17) mg/dL Creatinine (0.52-1.04) mg/dL Glucose (74-99) mg/dL POC Glucose (mg/dL) 116 H (70-110) mg/dL Plasma Lactic Acid [place] (0.7-2.0) mmol/L Calcium (8.4-10.2) mg/dL Magnesium (1.6-2.3) mg/dL Total Protein (6.3-8.2) g/dL Albumin (3.5-5.0) g/dL 11/30/24 Range/Units 09:47 WBC (3.8-10.6) k/uL RBC (3.80-5.40) m/uL Hgb (11.4-16.0) gm/dL MCHC (31.0-37.0) g/dL RDW (11.5-15.5) % Plt Count (150-450) k/uL Neutrophils # (Manual) (1.3-7.7) k/uL D-Dimer (<0.60) mg/L FEU Sodium 135 L (137-145) mmol/L Potassium 2.9 L (3.5-5.1) mmol/L Carbon Dioxide 33 H (22-30) mmol/L BUN 5 L (7-17) mg/dL Creatinine 0.51 L (0.52-1.04) mg/dL Glucose 158 H (74-99) mg/dL POC Glucose (mg/dL) (70-110) mg/dL Plasma Lactic Acid [place] (0.7-2.0) mmol/L Calcium 7.4 L (8.4-10.2) mg/dL Magnesium 1.3 L (1.6-2.3) mg/dL Total Protein 3.9 L (6.3-8.2) g/dL Albumin 1.9 L (3.5-5.0) g/dL Microbiology - Last 24 Hours (Table) 11/25/24 12:30 Anaerobic Culture - Final Abdominal Fluid 11/25/24 12:30 Gram Stain - Final Peritoneal Fluid Body Fluid Culture - Final
[2024-11-30] MEDS: MAGNESIUM SULFATE-D5W PMX 1 GM in DEXTROSE/WATER 1 100ML.BAG IVPB SCH (12:02)
[2024-11-30 12:07] LABS: Glucose,Whole Blood 139 mg/dL (70-110)
--- NOTE | 2024-11-30 14:40 | P.PN ---
Subjective Progress Note Date: 11/30/24 59-year-old female well-known to me. She presents to the emergency department, on November 22, at about 3 PM, complaining of generalized weakness, and abdominal pain. She apparently was in the hospital recently, for multiple problems including severe abdominal pain, related to opioid induced constipation, nausea, and vomiting. The patient also has a history of COPD, and has a history of non- small cell lung cancer, involving both lungs, with previous resections, done at [facility]. She unfortunately has recurrent lung cancer. She is not undergoing any treatment at this time. The patient is seen today in room 367. Her chest x-ray shows a right-sided pleural effusion, and a small left-sided pleural effusion. Her CT of the chest, shows no progression of her lung cancer. She is currently on 2 L. She is thought to have a possible bowel obstruction, and an NG tube will be placed. She is getting lactated Ringer's at 100 cc an hour. She is getting nasal O2 at 2 L. Current labs include white count 13.8, hemoglobin 9.6, hematocrit 32.8, and a platelet count of 547,000. Sodium 132, potassium 3.8, chloride 95, CO2 25, BUN 13, creatinine 0.55. Glucose was 92. Calcium is 8.7. Procalcitonin level was normal at 0.19. Viral screen was negative. CT scan of the abdomen and pelvis appears to show an obstruction, at the third portion of the duodenum, and significant dilatation of the duodenum, with a large fluid-filled loculated collection within the anterior abdomen. There is a small left pleural effusion. Progress note dated November 24, 2024. 59-year-old female seen today in room 367. She was admitted with abdominal discomfort. She is currently resting comfortably in bed. No acute distress. She is getting adequate pain control. She is currently on room air. An NG tube was noted. She is getting saline at 10 cc an hour, and lactated Ringer's at 75 cc an hour. Procalcitonin level is 0.19. She continues on Zosyn. Current labs include a white count of 11, hemoglobin 8.9, hematocrit 29.8, platelet count of 534,000. Sodium 133, potassium 3.8, chlorides 94, CO2 29, BUN 13, creatinine 0.63. Blood cultures are negative. Chest x-ray is essentially unchanged. On 11/25/2024, the patient is being seen for a follow-up. The patient has an NG tube in place for small bowel obstruction the patient has also a complex fluid collection in the anterior abdomen as revealed on the CAT scan of the abdomen pelvis was obtained on 11/22/2024. Specifically, the patient has obstruction likely at the level of the third portion of the duodenum with significant dilata tion of the duodenum. Large fluid filled loculated collection is also present in the anterior abdomen with a small left-sided pleural effusion. The proximal bowel loops are dilated and there is a large loculated fluid collection displacing normal-appearing small bowel loops and colon. The transition point is possibly the proximal jejunum. CT of the chest was also done on 11/22/2024 revealing a small left-sided pleural effusion. No evidence of any pulmonary embolism. There was a subcarinal lymph node in addition to some consolidation involving the right lung base. The patient has an NG tube in place and total amount of output has been 400 cc for yesterday and 200 cc this morning. [facility] of a drain in the abdomen with a total of 2.6 L of dark red tea colored fluid being removed and the fluid was sent for cytology. The patient remains on IV Zosyn. The patient remains on IV fluids. NG tube attached to low intermittent suction.Labs from today showed a white cell count of 10.8 with a hemoglobin 8.5 and a platelet count of 562. The sodium is at 134, potassium is at 3.8, BUN is 12 with a creatinine of 0.6. On 11/26/2024, the patient is being seen for a follow-up. The patient underwent a IR guided drainage of the abdominal fluid and immediately a total of 2.4 L of fluid was aspirated. The drainage is less on today's evaluation. NG tube remains in place for now and the patient has produced approximately 400 cc over the past 8 hours from the NG tube and a total of 120 cc from the abdominal drain. Bowel sounds are hypoactive. She is passing flatus. She remains NPO. No bowel movement activity for now. Respiratory status remains stable and the patient remains on oxygen at 3 L with a pulse ox of 99 to 100%. The patient remains on DuoNeb the regiment [id number] and Symbicort as maintenance regarding COPD. The patient remains on IV Zosyn as an empiric antibiotic coverage. Rest of the medications remain unchanged. General surgery is on the case. The patient remains NPO. The patient may need a small bowel follow- through if there is no improvement over the next 24 to 48 hours. On 11/27/2024, condition essentially unchanged. The patient remains NPO. NG tube is in place and total amount of output from the NG tube has been 600 cc overnight. The same time, the patient had another 150 cc drainage from the abdominal drain. Abdomen is not distended. Bowel sounds are absent. No bowel movement activity yet. The patient is scheduled to undergo an EGD tomorrow. Awaiting ascitic fluid cytology. White cell count is at 12 with a hemoglobin 9 and a platelet count of 428. BUN is 6 with a creatinine of 0.5 and a sodium levels at 135. Overall respiratory status is stable. No dyspnea at rest and she remains on 3 days of oxygen by nasal cannula with a pulse ox of 99 to 100%. No other significant events overnight. The patient needs to be considered for TPN. 1. 11/28/2024, the patient underwent EGD this morning and the patient was found to have no evidence of any duodenal obstruction. NG tube is still in place attached to low intermittent suction. Patient is on D5 normal saline at rate of 75 cc an hour. The patient may need to be started on TPN for nutritional support. Remains on IV Zosyn. Overall respiratory status is unchanged and the patient remains on 2 L of oxygen nasal cannula with a pulse ox of 99%. White cell count is at 10 with a hemoglobin 8.9 and a platelet count of 438. BUN is at 7 with a creatinine of 0.5 and a sodium level is at 134 and a potassium level is at 3.3. The ascitic fluid that was aspirated earlier was malignant and consistent with pulmonary non-small cell lung cancer. The output from the NG tube has been 750 cc over the past 8 hours. The abdominal drain has produced another 500 cc of output. On 11/29/2024, the patient's abdominal drain has been dislodged and the NG tube has been removed. She is trying to take some clear liquid diet. She had a small bowel movement. Noted ascitic fluid that was drained earlier was consistent with malignancy. A follow-up CAT scan of the abdomen was ordered for today. EGD that was done on 11/28/2024 showed gastritis without any obstruction. Respiratory status remains unchanged. She remains on 3 L with a pulse ox of 99%. She is quite debilitated. 11/30/2024, the patient is taking some limited amount of clear liquid diet. She states that she is passing some gas and flatus. CAT scan of the abdomen was repeated on 11/29/2024 and there is decrease in the amount of abdominal ascitic fluid. The drainage tube has been removed. There is bilateral pleural effusion. There is diffuse anasarca. There is also evidence of omental caking as the patient also has malignant ascitic fluid. Doppler lower extremities been negative. Chest x-ray is showing bilateral pleural effusion and consolidation right more than left. She remains on oxygen at 2 L/min nasal cannula with pulse ox of 98%. Continues to have some sinus tachycardia. Oncology has been consulted. Objective - Vital Signs Vital signs: Vital Signs Temp 98.0 F 11/30/24 07:00 Pulse 126 H 11/30/24 09:10 Resp 20 11/30/24 09:10 BP 103/63 11/30/24 07:00 Pulse Ox 98 11/30/24 09:00 FiO2 Intake & Output 11/29/24 11/30/24 11/30/24 18:59 06:59 18:59 Intake Total 2591 240 Output Total 1100 Balance 1491 240 Intake: Oral 2591 240 Output: Urine 1100 Other: Voiding Method Bedside Commode Bedside Commode Diaper Diaper Diaper External Catheter External Catheter # Voids 1 # Bowel Movements 1 1 - Exam No acute distress, oriented 3. Currently on 3 days of oxygen by nasal cannula. Calm and comfortable. NG tube removed HEENT examination is grossly unremarkable. Mucous membranes are moist. No oral lesions. NG tube is noted. Neck supple. Full range of motion. No adenopathy thyromegaly or neck vein distention. Cardiovascular examination reveals regular rhythm rate. S1-S2 normal. No S3 or S4. No discernible murmur noted. Lungs reveal diminished breath sounds on the right with rhonchi. The left lung is essentially clear. Abdomen mildly distended, without bowel sounds. Tender on palpation. The abdominal drain removed Extremities are intact. No cyanosis clubbing or edema. Skin is without rash or lesion. Neurologic examination is brief but nonfocal. Profound weakness in all 4 extremities. - Labs CBC & Chem 7: 11/30/24 09:47 11/30/24 09:47 Labs: Abnormal Lab Results - Last 24 Hours (Table) 11/29/24 11/29/24 11/29/24 Range/Units 12:22 17:07 21:14 WBC (3.8-10.6) k/uL RBC (3.80-5.40) m/uL Hgb (11.4-16.0) gm/dL MCHC (31.0-37.0) g/dL RDW (11.5-15.5) % Plt Count (150-450) k/uL Neutrophils # (Manual) (1.3-7.7) k/uL D-Dimer (<0.60) mg/L FEU Sodium (137-145) mmol/L Potassium (3.5-5.1) mmol/L Carbon Dioxide (22-30) mmol/L BUN (7-17) mg/dL Creatinine (0.52-1.04) mg/dL Glucose (74-99) mg/dL POC Glucose (mg/dL) 119 H 136 H (70-110) mg/dL Plasma Lactic Acid Erwin 2.2 H* (0.7-2.0) mmol/L Calcium (8.4-10.2) mg/dL Magnesium (1.6-2.3) mg/dL Total Protein (6.3-8.2) g/dL Albumin (3.5-5.0) g/dL 11/29/24 11/30/24 11/30/24 Range/Units 23:58 07:38 09:47 WBC 17.1 H (3.8-10.6) k/uL RBC 3.74 L (3.80-5.40) m/uL Hgb 9.5 L (11.4-16.0) gm/dL MCHC 27.8 L (31.0-37.0) g/dL RDW 16.8 H (11.5-15.5) % Plt Count 465 H (150-450) k/uL Neutrophils # (Manual) 15.39 H (1.3-7.7) k/uL D-Dimer 1.23 H (<0.60) mg/L FEU Sodium (137-145) mmol/L Potassium (3.5-5.1) mmol/L Carbon Dioxide (22-30) mmol/L BUN (7-17) mg/dL Creatinine (0.52-1.04) mg/dL Glucose (74-99) mg/dL POC Glucose (mg/dL) 116 H (70-110) mg/dL Plasma Lactic Acid Erwin (0.7-2.0) mmol/L Calcium (8.4-10.2) mg/dL Magnesium (1.6-2.3) mg/dL Total Protein (6.3-8.2) g/dL Albumin (3.5-5.0) g/dL 11/30/24 Range/Units 09:47 WBC (3.8-10.6) k/uL RBC (3.80-5.40) m/uL Hgb (11.4-16.0) gm/dL MCHC (31.0-37.0) g/dL RDW (11.5-15.5) % Plt Count (150-450) k/uL Neutrophils # (Manual) (1.3-7.7) k/uL D-Dimer (<0.60) mg/L FEU Sodium 135 L (137-145) mmol/L Potassium 2.9 L (3.5-5.1) mmol/L Carbon Dioxide 33 H (22-30) mmol/L BUN 5 L (7-17) mg/dL Creatinine 0.51 L (0.52-1.04) mg/dL Glucose 158 H (74-99) mg/dL POC Glucose (mg/dL) (70-110) mg/dL Plasma Lactic Acid Erwin (0.7-2.0) mmol/L Calcium 7.4 L (8.4-10.2) mg/dL Magnesium 1.3 L (1.6-2.3) mg/dL Total Protein 3.9 L (6.3-8.2) g/dL Albumin 1.9 L (3.5-5.0) g/dL Microbiology - Last 24 Hours (Table) 11/25/24 12:30 Anaerobic Culture - Final Abdominal Fluid 11/25/24 12:30 Gram Stain - Final Peritoneal Fluid Body Fluid Culture - Final Assessment and Plan Plan: Abdominal pain with small bowel obstruction and a large loculated fluid collection displacing the normal appearing small bowel loops and colon with a t ransition zone appearing to be within the proximal jejunum. Patient has an NG tube for decompression. At the same time, the patient underwent an IR guided placement of a drainage catheter in regards to the abdominal fluid collection. Output from the NG tube remains considerably high. The abdominal drain is still in place. The patient continues to have bowel obstruction. The ascitic fluid aspirated was positive for malignancy consistent with non-small cell lung cancer. Repeat EGD was done on 11/18/2024 showed gastritis without evidence of any duodenal obstruction. The NG tube and the abdominal drain has been dislodged and the patient was advised to clear liquid diet. Follow-up CAT scan of the abdomen and pelvis on 11/29/2024 shows decrease in the ascitic fluid. There is omental caking. Patient is taking clear liquid diet. Oral intake remains quite diminished. Abdominal pain, secondary to small bowel obstruction Stage IV lung cancer. 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 Previously maintained on chemotherapy with Alimta and carboplatin, could not tolerate side effects. PET scan taken on 07/25/2024 showing overall mixed response to therapy with slightly increased radiotracer activity throughout the right pleural and anterior right seventh rib with mild decrease in radiotracer activity within the right 10th rib and posterior costophrenic pleural region. Development of nonspecific left anterior peritoneal stranding changes with mild FDG uptake, could represent early peritoneal metastasis versus other etiologies such as infectious/inflammatory nature. Currently on Opdivo, has received 2 infusions so far. She has a known history of lung cancer originally diagnosed with wedge resection of the left upper lobe October 2019, as well as, a right lung resection in February 2021. A follow-up PET scan in February 2023 indicating possible disease recurrence. 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 Her established oncologist is Dr. Castillo. Previous hospitalization, secondary to opioid-induced constipation. Advanced COPD with an FEV1 of 31% of predicted The patient has ongoing volume loss and extensive pleural-parenchymal opacities throughout the right hemithorax and the patient has a pleural rind in the lower lung there is a progressively increasing since 2022. There is also confluent lower lobe opacities that have increased since 2022 and this is consistent with progression of her underlying non-small cell lung cancer Chronic hypoxic respiratory failure maintained on oxygen 2 L/min nasal cannula History of pulmonary embolism, maintained on anticoagulation with Eliquis History of hyperlipidemia. History of gastroesophageal reflux disease. History of tobacco use. Plan: Continue clear liquid diet CAT scan of the abdomen and pelvis with p.o. contrast done on 11/29/2024 was noted Keep the patient oxygen 3 L/min nasal cannula The patient had a follow-up EGD stated it showed no evidence of any duodenal obstruction Ascitic fluid is malignant IV fluids IV Zosyn General surgery is on the case Consult medical oncology Overall prognosis remains poor and will continue to follow
[2024-11-30 17:19] LABS: Glucose,Whole Blood 181 mg/dL (70-110)
--- NOTE | 2024-11-30 18:42 | P.CONS ---
History of Present Illness - Reason for Consult Consult date: 11/30/24 lung cancer Requesting physician: Meredith Rojas - Chief Complaint Abdominal pain and weakness - History of Present Illness History of Present Illness The patient is a 59 year old female with non-small cell lung cancer who presents with abdominal pain and bowel obstruction. She is accompanied by her sister and grandson. She has a history of non-small cell lung cancer, status post resection in 2019, followed by adjuvant chemotherapy with carboplatin and Alimta. In late 2022, she experienced persistent right chest pain, which led to the discovery of pleural thickening and recurrent pleural effusion. A biopsy confirmed adenocarcinoma, and she was given carbo/alimta/keytruda. she progressed on this and was then started on Opdivo in late 2023. She has received 2-3 cycles of Opdivo. She is here with abdominal pain. Recently admitted in 10/2024 with abdominal pa in and found to have constipation and ascites, with possible enteritis seen on CT AP. Now her CT AP from 11/22/24 showed SBO that appeared to originate in the third portion of the duodenum, a large fluid filled loculated collection in the anterior abdomen with thickening in the left adrenal gland and small left pleural effusion. CTA of the chest was done which showed stable right lung changes, however new left pleural effusion and enlarged subcarinal LN. She underwent peritoneal drain placement with 2.6L fluid removed. cytology was sent and was positive for metastatic NSCLC. She then underwent EGD which did not reveal any signs of obstructive mass. It showed gastritis vs early gastric u lceration, biopsied, path pending. CXR showed bilateral pleural effusions. Repeat CT was done, which showed omental caking. Her peritoneal drain fell out. Recent blood work shows a WBC of 17, hemoglobin of 9.5, and platelet count of 465, with creatinine at 0.5. We were consulted for underlying lung cancer with current imaging findings. Her course was complicated by a fall yesterday and tachycardia with a heart rate of 130s. A lower extremity Doppler was negative. She is tired. says she has had poor ECOG, 2 for the past 2 months. Oncologic History: Patient follows with Dr. Prince Castillo. Last seen on 10/02/24... Cat presented with cough & SOB, CXR on 07/23/20 at [facility] revealed suspicious RLL & CHIO findings confirmed on PET Scan to be suspicious for neoplastic process. The patient was referred to [facility] where she was evaluated by Dr Tapia, had Robotic assisted wedge resection of CHIO lesion in Oct 2019 revealing T1 Adenocarcinoma with negative florence metstasis. She was secheduled for R sisded surgery in November but delayed due to COVID sitation. She eventually had Wedge resection of RLL on 03/13/20 at [facility] revealing 4.9 cm Adenocarcinoma, all margins negative, all LN negative. A wedge resection of RUL lesion revealed 2 mm Adenocarcinoma. She recovered well, has anticipated R chest wall pain. She smoked 1 PPD for 35 years, quit in oct 2019, denies ETOH use, she is fully active without other significant comorbidities and enjoyes normal performnce status (PS 0) and quality of life. Status post cycle one of Carboplatin and Almta. Fatigue was very limiting, appetite is decreased. No nausea, No diarrhea. Pain is improved. 05/26/20: Feels well, C/O fatigue X 1 week following chemotherapy as only side effects, specifically NO Gi toxicities and no hematologic toxicities so far, she completed 2 cycles of adjuvant Chemotherapy 07/01/20: C/O fatigue, no GI toxicities. She completed 4 cycles of adjuvant Carboplatinum+Alimta Chemotherapy. 07/13/20-She started having bilateral lower extremity swelling about 10 days ago, persistent. Cont to have dizziness that is random. She woke up with it this AM, balance doesn't feel right, lays down and feels like the room is spinning, has had this even before cancer/treatment just more frequent and more noticable. No new numbness or tingling in the extremities, vision changes, difficulty swallowing, LYNCH, chest tightness. Baseline SOB is worse, she will have to catch her breath when talking, no Hx of cardiac work up or heart disease. 11/04/20: Feels well, had recent severe body aches following COVID vaccine, no chest pain or SOB, no anorexia or weight loss. 01/13/21: Feels well, fully active, C/O weight gain 07/14/21: C/O burning & pain in R mid chest wall (Lateral). Has stable exertional dyspnea. 12/1721: CT with increased RUL mass 2.4-3cm. She is symptomatic with increased pain, SOB and mediastinal spasms. 02/08/22: C/O Severe R chest wall burning pain 08/16/22: Had PE May 2022 > On Eliquis, C/O SOB. R chest wall Neuropathic post-thorocotomy pain better with Gabapentin. 01/04/23-Pt here today for acute visit, c/o severe rib/chest nerve pain, R>L, "burning, ripping, like glass being pushed in", interferes with eating, sleeping and breathing. She was on gabapentin 100mg PO BID, this was increased to 200mg BID a few month back and it helped but only briefly. She has tried tylenol, ibuprofen and norco with mild, temoporary relief. No fevers, sweats, new resp symptoms. She is on anticoagulation for PE, no bleeding to report. 02/17/23: C/O severe post-thorocotomy pain, increased dose Gabapentin + [place] pa tially effective. 06/27/23: C/O severe back & chest wall pain, tilted to right side, [place]+Gabapentin pain not as effective. Pain can be pleuretic. 07/04/23: C/O persistent R sided chest pain. 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 08/08/23: C/ persistent R chest pain , did not take Duragesic as prescribed, was seen by T surg (Dr Em) > ? mini thorocotomy soon 09/19/23: Continues to have severe R chest pain, Bx by Dr Em: Adenocarcinoma. [place] 7 minimally effective. 12/08/23: Had Carboplatinum infusion reaction during 3rd cycle of Chemotherapy. Stated pain improved, C/O constipation 01/09/24: Was hospitalized with exacerbation of COPD > improved. PET Scan > improved : Feels better, pain controlled 03/12/24: C/O R chest wall pain. Tolerating Alimta/Keytruda well. C/O cough with green sputom 04/30/24: C/O SOB, fatigue, not eating well 06/26/24: Was hospitalized with weakness & dehydration. Lost 10 LBS last 4 weeks, she is very weak, unable to stand up 08/07/24: not feeling well, C/O SOB & Increasing R sided chest wall pain. PET Scan: Progressed 10/02/24: C/O loosing weight, pain is controlled with Duragesic & [place] 10. Tolerating Opdivo well (Melissa infusion) Past Medical History Past Medical History: Cancer, COPD, GERD/Reflux, Hyperlipidemia, Pulmonary Embolus (PE) Additional Past Medical History / Comment(s): Current back and rib cancer. Ovarian cyst. Hx lung cancer 2018 w/wedge resection left upper lobe Oct 2019, hx PE 06/21/22, right lower lobe resection for lung cancer February 2020, had 4 rounds of chemo after that and was cancer free until February 2023. Started immunotherapy every 4 weeks. Last chemotherapy was April 2024. History of Any Multi-Drug Resistant Organisms: None Reported Past Surgical History: Orthopedic Surgery, Tonsillectomy Additional Past Surgical History / Comment(s): Right hand surgery, ectopic surgery, lung resection of left upper lobe and right lower lobe, 1994 had lymph nodes removed from right armpit. Past Anesthesia/Blood Transfusion Reactions: Motion Sickness Additional Past Anesthesia/Blood Transfusion Reaction / Comm: motion sickness in the car Past Psychological History: No Psychological Hx Reported Smoking Status: Former smoker Past Alcohol Use History: None Reported Past Drug Use History: None Reported - Past Family History Father Family Medical History: Cancer Mother Family Medical History: Cancer, Deep Vein Thrombosis (DVT), Pulmonary Embolus Medications and Allergies Home Medications Medication Instructions Recorded Confirmed Type Albuterol Inhaler [Ventolin Hfa 2 puff INHALATION RT-Q6H PRN 09/17/19 11/22/24 History Inhaler] Cetirizine HCl [Zyrtec] 10 mg PO DAILY 06/21/22 11/22/24 History Omeprazole Magnesium [PriLOSEC OTC] 20 mg PO BID 06/21/22 11/22/24 History Apixaban [Eliquis] 5 mg PO BID 30 Days #60 tab 06/24/22 11/22/24 Rx Ipratropium-Albuterol Nebulize 3 ml INHALATION RT-QID 30 Days 06/24/22 11/22/24 Rx [Duoneb 0.5 mg-3 mg/3 ml Soln] #300 ml Budesonide-Formot 160-4.5 Mcg 2 puff INHALATION RT-BID 02/28/23 11/22/24 History [Symbicort 160-4.5 Mcg Inhaler] HYDROcodone/APAP 10-325MG [[place] 1 tab PO Q6HR PRN 01/05/24 11/22/24 History 10-325] Lidocaine/Menthol [Asperflex Max 1 patch TRANSDERM DAILY PRN 01/05/24 11/22/24 History 4%-1% Patch] Linaclotide [Linzess] 145 mcg PO DAILY PRN 01/05/24 11/22/24 History Ondansetron Odt [Zofran ODT] 8 mg PO Q6H PRN 01/05/24 11/22/24 History guaiFENesin [Mucinex] 600 mg PO Q12HR PRN #30 tab 01/08/24 11/22/24 Rx fentaNYL 50MCG/HR PATCH [Duragesic 1 patch TRANSDERM Q72H patch 10/20/24 11/22/24 Rx 50MCG/HR] Gabapentin [Neurontin] 300 mg PO TID #90 cap 11/17/24 11/22/24 Rx Sennosides [Senokot] 8.6 mg PO BID #90 tab 11/17/24 11/22/24 Rx Simethicone Chew [Mylicon Chew] 80 mg PO QID PRN #90 tab 11/17/24 11/22/24 Rx Allergies Allergy/AdvReac Type Severity Reaction Status Date / Time sulfamethoxazole Allergy Rash/Hives Verified 11/22/24 19:23 [From Bactrim] trimethoprim [From Bactrim] Allergy Rash/Hives Verified 11/22/24 19:23 Physical Exam Vitals: Vital Signs Temp Pulse Pulse Pulse Resp BP Pulse Ox 11/30/24 12:42 98.1 F 121 H 16 124/84 98 11/30/24 12:32 111 H 18 11/30/24 12:23 122 H 22 11/30/24 09:10 126 H 20 11/30/24 09:00 128 H 20 98 11/30/24 08:00 126 H 20 11/30/24 07:00 98.0 F 116 H 16 103/63 94 L 11/30/24 05:52 86 11/30/24 05:44 85 11/30/24 00:23 97.4 F L 125 H 18 120/82 100 11/29/24 20:00 125 H 133 H 11/29/24 19:29 127 H 141/80 99 11/29/24 19:21 133 H 125/81 97 11/29/24 19:04 118 H 16 114/76 98 Intake and Output 11/30/24 11/30/24 11/30/24 06:59 14:59 22:59 Intake Total 2040 Output Total 900 Balance 1140 Intake: Oral 2040 Output: Urine 900 Other: Voiding Method Diaper # Bowel Movements 1 Physical Exam GENERAL: Appears tired but in no acute distress, reclining on the recliner. RESPIRTORY: No respiratory distress. ABDOMEN: Firm and tender to deep palpation. Not distended. NEUROLOGIC: alert and oriented times three. Results CBC & Chem 7: 11/30/24 09:47 11/30/24 09:47 Labs: Abnormal Lab Results - Last 24 Hours (Table) 11/29/24 11/29/24 11/29/24 Range/Units 17:07 21:14 23:58 WBC (3.8-10.6) k/uL RBC (3.80-5.40) m/uL Hgb (11.4-16.0) gm/dL MCHC (31.0-37.0) g/dL RDW (11.5-15.5) % Plt Count (150-450) k/uL Neutrophils # (Manual) (1.3-7.7) k/uL D-Dimer (<0.60) mg/L FEU Sodium (137-145) mmol/L Potassium (3.5-5.1) mmol/L Carbon Dioxide (22-30) mmol/L BUN (7-17) mg/dL Creatinine (0.52-1.04) mg/dL Glucose (74-99) mg/dL POC Glucose (mg/dL) 136 H (70-110) mg/dL Plasma Lactic Acid Erwin 2.2 H* (0.7-2.0) mmol/L Calcium (8.4-10.2) mg/dL Magnesium (1.6-2.3) mg/dL Total Protein (6.3-8.2) g/dL Albumin (3.5-5.0) g/dL Procalcitonin 5.92 H (0.02-0.50) ng/mL 11/29/24 11/30/24 11/30/24 Range/Units 23:58 07:38 09:47 WBC 17.1 H (3.8-10.6) k/uL RBC 3.74 L (3.80-5.40) m/uL Hgb 9.5 L (11.4-16.0) gm/dL MCHC 27.8 L (31.0-37.0) g/dL RDW 16.8 H (11.5-15.5) % Plt Count 465 H (150-450) k/uL Neutrophils # (Manual) 15.39 H (1.3-7.7) k/uL D-Dimer 1.23 H (<0.60) mg/L FEU Sodium (137-145) mmol/L Potassium (3.5-5.1) mmol/L Carbon Dioxide (22-30) mmol/L BUN (7-17) mg/dL Creatinine (0.52-1.04) mg/dL Glucose (74-99) mg/dL POC Glucose (mg/dL) 116 H (70-110) mg/dL Plasma Lactic Acid [place]win (0.7-2.0) mmol/L Calcium (8.4-10.2) mg/dL Magnesium (1.6-2.3) mg/dL Total Protein (6.3-8.2) g/dL Albumin (3.5-5.0) g/dL Procalcitonin (0.02-0.50) ng/mL 11/30/24 11/30/24 Range/Units 09:47 12:06 WBC (3.8-10.6) k/uL RBC (3.80-5.40) m/uL Hgb (11.4-16.0) gm/dL MCHC (31.0-37.0) g/dL RDW (11.5-15.5) % Plt Count (150-450) k/uL Neutrophils # (Manual) (1.3-7.7) k/uL D-Dimer (<0.60) mg/L FEU Sodium 135 L (137-145) mmol/L Potassium 2.9 L (3.5-5.1) mmol/L Carbon Dioxide 33 H (22-30) mmol/L BUN 5 L (7-17) mg/dL Creatinine 0.51 L (0.52-1.04) mg/dL Glucose 158 H (74-99) mg/dL POC Glucose (mg/dL) 139 H (70-110) mg/dL Plasma Lactic Acid Erwin (0.7-2.0) mmol/L Calcium 7.4 L (8.4-10.2) mg/dL Magnesium 1.3 L (1.6-2.3) mg/dL Total Protein 3.9 L (6.3-8.2) g/dL Albumin 1.9 L (3.5-5.0) g/dL Procalcitonin (0.02-0.50) ng/mL Microbiology - Last 24 Hours (Table) 11/25/24 12:30 Anaerobic Culture - Final Abdominal Fluid 11/25/24 12:30 Gram Stain - Final Peritoneal Fluid Body Fluid Culture - Final Chest x-ray: report reviewed CT scan - abdomen: report reviewed CT scan - chest: report reviewed CT scan - pelvis: report reviewed Assessment and Plan Assessment: Metastatic NSCLC Intractable abdominal pain due to cancer SBO Leukocytosis, reactive Anemia due to chronic disease Plan: Assessment and Plan Metastatic Non-Small Cell Lung Cancer Non-small cell lung cancer, status post resection in 2019, followed by adjuvant chemotherapy. In late 2022, pleural thickening and recurrent pleural effusion were noted, and biopsy confirmed adenocarcinoma, failed carbo/alimta/keytruda and more recently started on Opdivo in late 2023, and has received 2-3 doses. Recent imaging shows disease progression with new bowel obstruction and omental carcinomatosis, and ascites. Cytology from peritoneal fluid was positive for metastatic non-small cell carcinoma. Clinically she is also progressing with increased abdominal pain. Doubt changes seen on imaging are due to pseudo- progression. Pain manageable on Dilaudid [employer]ATOR and [place], though [place] pills last about four hours before pain recurs. - Manage pain with Dilaudid [employer]ATOR and [place] as needed - Discussed that her current regimen is not working and discussed option of alternate therapy vs comfort care - At this time, she is interested in continued aggressive therapy and she is not interested in comfort care - Will need to discuss further care with Dr. Castillo, and consider repeat liquid biopsy for possible targetable mutation Small Bowel Obstruction CT of the abdomen and pelvis from 11/22/2024 showed signs of small bowel obstruction originating in the third portion of the duodenum. An NG tube was placed. Started to have bowel movements and vomiting has improved. - Overall improving - Monitor bowel movements and vomiting Pleural Effusion Recent imaging revealed a new left pleural effusion and an enlarged subcarinal lymph node. Chest X-ray showed bilateral pleural effusions. - Monitor pleural effusion - Consider thoracentesis if symptomatic Gastric gastritis vs. Early Ulceration seen on EGD EGD did not reveal any signs of an obstructive mass but noted gastritis versus early ulceration in the stomach body. Pathology is pending. - Await pathology results - PPI therapy, GI managing Tachycardia Experienced tachycardia with a heart rate of 130s overnight. Lower extremity Doppler was negative for DVT. Likely due to malignancy and weakness - Monitor heart rate I discussed with pt and family at bedside and they were agreeable. all questions answered. discussed with daughter Theresa over the phone at [phone]. I talked with her daughter about possible alternate therapy vs comfort measures, however will need to discuss this with Dr. Castillo during the week. She did request that she is called with an update of Dr. Castillo's recommendations.
--- NOTE | 2024-11-30 21:27 | P.PN ---
Subjective Patient seen and evaluated at bedside. Patient feeling better, denies fevers, chills, shortness of breath or cehst pain. Objective - Vital Signs Vital signs: Vital Signs Temp 97.7 F 11/30/24 19:21 Pulse 117 H 11/30/24 20:03 Resp 20 11/30/24 20:03 BP 104/72 11/30/24 19:21 Pulse Ox 100 11/30/24 19:21 FiO2 Intake & Output 11/30/24 11/30/24 12/01/24 06:59 18:59 06:59 Intake Total 2040 240 Output Total 900 550 Balance 1140 -310 Intake: Oral 2040 240 Output: Urine 900 550 Other: Voiding Method Bedside Commode Diaper Diaper External Catheter # Voids 1 # Bowel Movements 1 1 - Exam gen: nad cv; rrr pul: non labored breathing, denies fevers, chills, shortness of breath or chest pain abd: soft, non distended, no tender to palpation, no guarding or rebound tenderness - Labs CBC & Chem 7: 11/30/24 09:47 11/30/24 09:47 Labs: Abnormal Lab Results - Last 24 Hours (Table) 11/29/24 11/29/24 11/29/24 Range/Units 21:14 23:58 23:58 WBC (3.8-10.6) k/uL RBC (3.80-5.40) m/uL Hgb (11.4-16.0) gm/dL MCHC (31.0-37.0) g/dL RDW (11.5-15.5) % Plt Count (150-450) k/uL Neutrophils # (Manual) (1.3-7.7) k/uL D-Dimer 1.23 H (<0.60) mg/L FEU Sodium (137-145) mmol/L Potassium (3.5-5.1) mmol/L Carbon Dioxide (22-30) mmol/L BUN (7-17) mg/dL Creatinine (0.52-1.04) mg/dL Glucose (74-99) mg/dL POC Glucose (mg/dL) (70-110) mg/dL Plasma Lactic Acid Erwin 2.2 H* (0.7-2.0) mmol/L Calcium (8.4-10.2) mg/dL Magnesium (1.6-2.3) mg/dL Total Protein (6.3-8.2) g/dL Albumin (3.5-5.0) g/dL Procalcitonin 5.92 H (0.02-0.50) ng/mL 11/30/24 11/30/24 11/30/24 Range/Units 07:38 09:47 09:47 WBC 17.1 H (3.8-10.6) k/uL RBC 3.74 L (3.80-5.40) m/uL Hgb 9.5 L (11.4-16.0) gm/dL MCHC 27.8 L (31.0-37.0) g/dL RDW 16.8 H (11.5-15.5) % Plt Count 465 H (150-450) k/uL Neutrophils # (Manual) 15.39 H (1.3-7.7) k/uL D-Dimer (<0.60) mg/L FEU Sodium 135 L (137-145) mmol/L Potassium 2.9 L (3.5-5.1) mmol/L Carbon Dioxide 33 H (22-30) mmol/L BUN 5 L (7-17) mg/dL Creatinine 0.51 L (0.52-1.04) mg/dL Glucose 158 H (74-99) mg/dL POC Glucose (mg/dL) 116 H (70-110) mg/dL Plasma Lactic Acid [place] (0.7-2.0) mmol/L Calcium 7.4 L (8.4-10.2) mg/dL Magnesium 1.3 L (1.6-2.3) mg/dL Total Protein 3.9 L (6.3-8.2) g/dL Albumin 1.9 L (3.5-5.0) g/dL Procalcitonin (0.02-0.50) ng/mL 11/30/24 11/30/24 Range/Units 12:06 17:18 WBC (3.8-10.6) k/uL RBC (3.80-5.40) m/uL Hgb (11.4-16.0) gm/dL MCHC (31.0-37.0) g/dL RDW (11.5-15.5) % Plt Count (150-450) k/uL Neutrophils # (Manual) (1.3-7.7) k/uL D-Dimer (<0.60) mg/L FEU Sodium (137-145) mmol/L Potassium (3.5-5.1) mmol/L Carbon Dioxide (22-30) mmol/L BUN (7-17) mg/dL Creatinine (0.52-1.04) mg/dL Glucose (74-99) mg/dL POC Glucose (mg/dL) 139 H 181 H (70-110) mg/dL Plasma Lactic Acid Erwin (0.7-2.0) mmol/L Calcium (8.4-10.2) mg/dL Magnesium (1.6-2.3) mg/dL Total Protein (6.3-8.2) g/dL Albumin (3.5-5.0) g/dL Procalcitonin (0.02-0.50) ng/mL Assessment and Plan Assessment: 1. Partial small bowel obstruction within the third portion of the duodenum 2. Complex fluid collection in the anterior abdomen status post drain placement. 3. IR drain Dislodged 4. Stage IV lung cancer PLAN: -EGD performed 11/28 showed gastritis with no obstruction -Advanced to regular diet -IR reconsulted for new IR drain -Follow-up on cytology results -Continue antibiotics
[2024-12-01 01:09] LABS: Glucose,Whole Blood 127 mg/dL (70-110)
[2024-12-01 05:45] LABS: Glucose,Whole Blood 118 mg/dL (70-110)
[2024-12-01 06:01] LABS: Anisocytosis Slight; HCT 33.2 % (34.0-46.0); HGB 9.3 gm/dL (11.4-16.0); Hypochromasia Marked; MCH 25.2 pg (25.0-35.0); MCHC 27.9 g/dL (31.0-37.0); MCV 90.1 fL (80.0-100.0); Mean Platelet Volume 7.8; Platelet Count 458 k/uL (150-450); RBC 3.68 m/uL (3.80-5.40); RDW 16.9 % (11.5-15.5); WBC 12.7 k/uL (3.8-10.6)
[2024-12-01 06:18] LABS: ALT 15 U/L (4-34); AST 25 U/L (14-36); African American GFR (CKD) >90 (>60 ml/min/1.73 sqM); Albumin 1.9 g/dL (3.5-5.0); Albumin/Globulin Ratio 0.9; Alkaline Phosphatase 87 U/L (38-126); Anion Gap 1 mmol/L; Blood Urea Nitrogen 4 mg/dL (7-17); Calcium 7.5 mg/dL (8.4-10.2); Carbon Dioxide 34 mmol/L (22-30); Chloride 98 mmol/L (98-107); Globulin 2.1 g/dL; Glucose 114 mg/dL (74-99); Magnesium 2.2 mg/dL (1.6-2.3); Non-African American GFR(CKD) >90 (>60 ml/min/1.73 sqM); Potassium 3.3 mmol/L (3.5-5.1); Sodium 133 mmol/L (137-145); Total Bilirubin 0.3 mg/dL (0.2-1.3)
[2024-12-01] MEDS: ENOXAPARIN 40 MG/0.4 ML SYRINGE SQ SCH (08:31)
[2024-12-01] MEDS: POTASSIUM CHLORIDE ER 20 MEQ TAB.ER PO STA (10:35)
--- NOTE | 2024-12-01 11:00 | P.PN ---
Subjective Progress Note Date: 12/01/24 Subjective: Patient seen and examined at bedside. Continues to have bowel movements, complaining of increased abdominal pain today. Drain dislodged. Pertinent positives and negatives as discussed above, a complete review of systems was performed and all other systems are negative. Vitals Signs Reviewed. General: Nontoxic, no distress, appears at stated age, chronically ill-appearing Derm: Warm, dry Head: Atraumatic, normocephalic, symmetric Eyes: EOMI, no lid lag, anicteric sclera Mouth: No lip lesion, mucus membranes moist Cardiovascular: S1S2 reg, no murmur Lungs: CTA bilateral, no rhonchi, no rales, no accessory muscle use, supplemental oxygen Abdominal: Soft, nontender to palpation, no guarding, no appreciable organomegaly Ext: No gross muscle atrophy, trace peripheral edema, no contractures Neuro: CN II-XI grossly intact, no focal neuro deficits Psych: Alert, oriented, appropriate affect Data Reviewed Today: Pertinent Labs: WBC 12.7, hemoglobin 9.3, potassium 3.3, sodium 133, creatinine 0.49, blood sugars range between 1 14-1 27, magnesium 2.2 Imaging: No new imaging Assessment and Plan: Active: Chronic hypoxic respiratory failure Recurrent pleural effusion likely metastatic Stage IV non-small cell lung cancer status post wedge resection Advanced COPD Leukocytosis, likely reactive Aspiration pneumonia unlikely -Patient previously completed 7-day course of IV Zosyn, antibiotics discontinued -Speech therapy consulted -Surgery note reviewed, patient advanced to regular diet -Oncology and pulmonology following -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 -Continue Linzess 145 mcg daily and Senokot 8.6 mg twice daily. -Continue Protonix 40 mg IVP twice daily. -NG tube discontinued on 11/28/2024 Hypokalemia - 20 mill equivalent oral potassium today Hypomagnesemia, resolved Mildly hypervolemic hyponatremia -Discontinue IV fluids Tachycardia, sinus -Likely secondary to deconditioning and malignancy Chronic: Neuropathy DVT ppx: Lovenox Code status: Full code Anticipated discharge place: Pending clinical course Anticipated discharge time: Pending clinical course Objective - Vital Signs Vital signs: Vital Signs Temp 97.9 F 12/01/24 07:00 Pulse 112 H 12/01/24 07:53 Resp 15 12/01/24 07:00 BP 128/78 12/01/24 07:00 Pulse Ox 98 12/01/24 07:40 FiO2 Intake & Output 11/30/24 12/01/24 12/01/24 18:59 06:59 18:59 Intake Total 2040 480 Output Total 900 850 Balance 1140 -370 Intake: Oral 2040 480 Output: Urine 900 850 Other: Voiding Method Diaper # Voids 1 # Bowel Movements 1 - Labs CBC & Chem 7: 12/01/24 05:14 12/01/24 05:14 Labs: Abnormal Lab Results - Last 24 Hours (Table) 11/29/24 11/30/24 11/30/24 Range/Units 23:58 12:06 17:18 WBC (3.8-10.6) k/uL RBC (3.80-5.40) m/uL Hgb (11.4-16.0) gm/dL Hct (34.0-46.0) % MCHC (31.0-37.0) g/dL RDW (11.5-15.5) % Plt Count (150-450) k/uL Sodium (137-145) mmol/L Potassium (3.5-5.1) mmol/L Carbon Dioxide (22-30) mmol/L BUN (7-17) mg/dL Creatinine (0.52-1.04) mg/dL Glucose (74-99) mg/dL POC Glucose (mg/dL) 139 H 181 H (70-110) mg/dL Calcium (8.4-10.2) mg/dL Total Protein (6.3-8.2) g/dL Albumin (3.5-5.0) g/dL Procalcitonin 5.92 H (0.02-0.50) ng/mL 12/01/24 12/01/24 12/01/24 Range/Units 01:03 05:14 05:14 WBC 12.7 H (3.8-10.6) k/uL RBC 3.68 L (3.80-5.40) m/uL Hgb 9.3 L (11.4-16.0) gm/dL Hct 33.2 L (34.0-46.0) % MCHC 27.9 L (31.0-37.0) g/dL RDW 16.9 H (11.5-15.5) % Plt Count 458 H (150-450) k/uL Sodium 133 L (137-145) mmol/L Potassium 3.3 L (3.5-5.1) mmol/L Carbon Dioxide 34 H (22-30) mmol/L BUN 4 L (7-17) mg/dL Creatinine 0.49 L (0.52-1.04) mg/dL Glucose 114 H (74-99) mg/dL POC Glucose (mg/dL) 127 H (70-110) mg/dL Calcium 7.5 L (8.4-10.2) mg/dL Total Protein 4.0 L (6.3-8.2) g/dL Albumin 1.9 L (3.5-5.0) g/dL Procalcitonin (0.02-0.50) ng/mL 12/01/24 Range/Units 05:43 WBC (3.8-10.6) k/uL RBC (3.80-5.40) m/uL Hgb (11.4-16.0) gm/dL Hct (34.0-46.0) % MCHC (31.0-37.0) g/dL RDW (11.5-15.5) % Plt Count (150-450) k/uL Sodium (137-145) mmol/L Potassium (3.5-5.1) mmol/L Carbon Dioxide (22-30) mmol/L BUN (7-17) mg/dL Creatinine (0.52-1.04) mg/dL Glucose (74-99) mg/dL POC Glucose (mg/dL) 118 H (70-110) mg/dL Calcium (8.4-10.2) mg/dL Total Protein (6.3-8.2) g/dL Albumin (3.5-5.0) g/dL Procalcitonin (0.02-0.50) ng/mL
[2024-12-01 12:10] LABS: Lymphocytes # (M) 1.52 k/uL (1.0-4.8); Metamyelocytes # (M) 0.13 k/uL (0); Metamyelocytes % 1 %; Monocytes # (M) 1.14 k/uL (0-1.0); Myelocytes # (M) 0.13 k/uL (0); Myelocytes % 1 %; Neutrophils # (M) 9.91 k/uL (1.3-7.7); Neutrophils % (M) 78 %; Nucleated Red Blood Cells 0 /100 WBC (0-0); Total Cells Counted 200
[2024-12-01 12:34] LABS: Glucose,Whole Blood 122 mg/dL (70-110)
--- NOTE | 2024-12-01 12:46 | P.PN ---
Subjective Patient seen and evaluated at bedside. Patient feeling better, denies fevers, chills, shortness of breath or chest pain. Objective - Vital Signs Vital signs: Vital Signs Temp 97.9 F 12/01/24 07:00 Pulse 108 H 12/01/24 11:23 Resp 18 12/01/24 08:00 BP 128/78 12/01/24 07:00 Pulse Ox 98 12/01/24 07:40 FiO2 Intake & Output 11/30/24 12/01/24 12/01/24 18:59 06:59 18:59 Intake Total 2040 480 Output Total 900 850 Balance 1140 -370 Intake: Oral 0 480 Output: Urine 900 850 Other: Voiding Method Diaper # Voids 1 # Bowel Movements 1 - Exam gen: nad cv; rrr pul: non labored breathing, denies fevers, chills, shortness of breath or chest pain abd: soft, non distended, no tender to palpation, no guarding or rebound tenderness - Labs CBC & Chem 7: 12/01/24 05:14 12/01/24 05:14 Labs: Abnormal Lab Results - Last 24 Hours (Table) 11/29/24 11/30/24 12/01/24 Range/Units 23:58 17:18 01:03 WBC (3.8-10.6) k/uL RBC (3.80-5.40) m/uL Hgb (11.4-16.0) gm/dL Hct (34.0-46.0) % MCHC (31.0-37.0) g/dL RDW (11.5-15.5) % Plt Count (150-450) k/uL Neutrophils # (Manual) (1.3-7.7) k/uL Monocytes # (Manual) (0-1.0) k/uL Metamyelocytes # (Man) (0) k/uL Myelocytes # (Manual) (0) k/uL Sodium (137-145) mmol/L Potassium (3.5-5.1) mmol/L Carbon Dioxide (22-30) mmol/L BUN (7-17) mg/dL Creatinine (0.52-1.04) mg/dL Glucose (74-99) mg/dL POC Glucose (mg/dL) 181 H 127 H (70-110) mg/dL Calcium (8.4-10.2) mg/dL Total Protein (6.3-8.2) g/dL Albumin (3.5-5.0) g/dL Procalcitonin 5.92 H (0.02-0.50) ng/mL 12/01/24 12/01/24 12/01/24 Range/Units 05:14 05:14 05:43 WBC 12.7 H (3.8-10.6) k/uL RBC 3.68 L (3.80-5.40) m/uL Hgb 9.3 L (11.4-16.0) gm/dL Hct 33.2 L (34.0-46.0) % MCHC 27.9 L (31.0-37.0) g/dL RDW 16.9 H (11.5-15.5) % Plt Count 458 H (150-450) k/uL Neutrophils # (Manual) 9.91 H (1.3-7.7) k/uL Monocytes # (Manual) 1.14 H (0-1.0) k/uL Metamyelocytes # (Man) 0.13 H (0) k/uL Myelocytes # (Manual) 0.13 H (0) k/uL Sodium 133 L (137-145) mmol/L Potassium 3.3 L (3.5-5.1) mmol/L Carbon Dioxide 34 H (22-30) mmol/L BUN 4 L (7-17) mg/dL Creatinine 0.49 L (0.52-1.04) mg/dL Glucose 114 H (74-99) mg/dL POC Glucose (mg/dL) 118 H (70-110) mg/dL Calcium 7.5 L (8.4-10.2) mg/dL Total Protein 4.0 L (6.3-8.2) g/dL Albumin 1.9 L (3.5-5.0) g/dL Procalcitonin (0.02-0.50) ng/mL 12/01/24 Range/Units 12:29 WBC (3.8-10.6) k/uL RBC (3.80-5.40) m/uL Hgb (11.4-16.0) gm/dL Hct (34.0-46.0) % MCHC (31.0-37.0) g/dL RDW (11.5-15.5) % Plt Count (150-450) k/uL Neutrophils # (Manual) (1.3-7.7) k/uL Monocytes # (Manual) (0-1.0) k/uL Metamyelocytes # (Man) (0) k/uL Myelocytes # (Manual) (0) k/uL Sodium (137-145) mmol/L Potassium (3.5-5.1) mmol/L Carbon Dioxide (22-30) mmol/L BUN (7-17) mg/dL Creatinine (0.52-1.04) mg/dL Glucose (74-99) mg/dL POC Glucose (mg/dL) 122 H (70-110) mg/dL Calcium (8.4-10.2) mg/dL Total Protein (6.3-8.2) g/dL Albumin (3.5-5.0) g/dL Procalcitonin (0.02-0.50) ng/mL Assessment and Plan Assessment: 1. Partial small bowel obstruction within the third portion of the duodenum 2. Complex fluid collection in the anterior abdomen status post drain placement. 3. IR drain Dislodged 4. Stage IV lung cancer PLAN: -EGD performed 11/28 showed gastritis with no obstruction -Advanced to regular diet -Patient complaining of some abdominal discomfort after breakfast, instructed to go slow, patient continues to pass flatus and have bowel movements -Follow-up on cytology results -Continue antibiotics Time with Patient: Less than 30
--- NOTE | 2024-12-01 14:48 | P.PN ---
Subjective Progress Note Date: 12/01/24 59-year-old female well-known to me. She presents to the emergency department, on November 22, at about 3 PM, complaining of generalized weakness, and abdominal pain. She apparently was in the hospital recently, for multiple problems including severe abdominal pain, related to opioid induced constipation, nausea, and vomiting. The patient also has a history of COPD, and has a history of non- small cell lung cancer, involving both lungs, with previous resections, done at [facility]. She unfortunately has recurrent lung cancer. She is not undergoing any treatment at this time. The patient is seen today in room 367. Her chest x-ray shows a right-sided pleural effusion, and a small left-sided pleural effusion. Her CT of the chest, shows no progression of her lung cancer. She is currently on 2 L. She is thought to have a possible bowel obstruction, and an NG tube will be placed. She is getting lactated Ringer's at 100 cc an hour. She is getting nasal O2 at 2 L. Current labs include white count 13.8, hemoglobin 9.6, hematocrit 32.8, and a platelet count of 547,000. Sodium 132, potassium 3.8, chloride 95, CO2 25, BUN 13, creatinine 0.55. Glucose was 92. Calcium is 8.7. Procalcitonin level was normal at 0.19. Viral screen was negative. CT scan of the abdomen and pelvis appears to show an obstruction, at the third portion of the duodenum, and significant dilatation of the duodenum, with a large fluid-filled loculated collection within the anterior abdomen. There is a small left pleural effusion. Progress note dated November 24, 2024. 59-year-old female seen today in room 367. She was admitted with abdominal discomfort. She is currently resting comfortably in bed. No acute distress. She is getting adequate pain control. She is currently on room air. An NG tube was noted. She is getting saline at 10 cc an hour, and lactated Ringer's at 75 cc an hour. Procalcitonin level is 0.19. She continues on Zosyn. Current labs include a white count of 11, hemoglobin 8.9, hematocrit 29.8, platelet count of 534,000. Sodium 133, potassium 3.8, chlorides 94, CO2 29, BUN 13, creatinine 0.63. Blood cultures are negative. Chest x-ray is essentially unchanged. On 11/25/2024, the patient is being seen for a follow-up. The patient has an NG tube in place for small bowel obstruction the patient has also a complex fluid collection in the anterior abdomen as revealed on the CAT scan of the abdomen pelvis was obtained on 11/22/2024. Specifically, the patient has obstruction likely at the level of the third portion of the duodenum with significant dilata tion of the duodenum. Large fluid filled loculated collection is also present in the anterior abdomen with a small left-sided pleural effusion. The proximal bowel loops are dilated and there is a large loculated fluid collection displacing normal-appearing small bowel loops and colon. The transition point is possibly the proximal jejunum. CT of the chest was also done on 11/22/2024 revealing a small left-sided pleural effusion. No evidence of any pulmonary embolism. There was a subcarinal lymph node in addition to some consolidation involving the right lung base. The patient has an NG tube in place and total amount of output has been 400 cc for yesterday and 200 [facility] this [facility] in the abdomen with a total of 2.6 L of dark red tea colored fluid being removed and the fluid was sent for cytology. The patient remains on IV Zosyn. The patient remains on IV fluids. NG tube attached to low intermittent suction.Labs from today showed a white cell count of 10.8 with a hemoglobin 8.5 and a platelet count of 562. The sodium is at 134, potassium is at 3.8, BUN is 12 with a creatinine of 0.6. On 11/26/2024, the patient is being seen for a follow-up. The patient underwent a IR guided drainage of the abdominal fluid and immediately a total of 2.4 L of fluid was aspirated. The drainage is less on today's evaluation. NG tube remains in place for now and the patient has produced approximately 400 cc over the past 8 hours from the NG tube and a total of 120 cc from the abdominal drain. Bowel sounds are hypoactive. She is passing flatus. She remains NPO. No bowel movement activity for now. Respiratory status remains stable and the patient remains on oxygen at 3 L with a pulse ox of 99 to 100%. The patient remains on DuoNeb the regiment [id number] and Symbicort as maintenance regarding COPD. The patient remains on IV Zosyn as an empiric antibiotic coverage. Rest of the medications remain unchanged. General surgery is on the case. The patient remains NPO. The patient may need a small bowel follow- through if there is no improvement over the next 24 to 48 hours. On 11/27/2024, condition essentially unchanged. The patient remains NPO. NG tube is in place and total amount of output from the NG tube has been 600 cc overnight. The same time, the patient had another 150 cc drainage from the abdominal drain. Abdomen is not distended. Bowel sounds are absent. No bowel movement activity yet. The patient is scheduled to undergo an EGD tomorrow. Awaiting ascitic fluid cytology. White cell count is at 12 with a hemoglobin 9 and a platelet count of 428. BUN is 6 with a creatinine of 0.5 and a sodium levels at 135. Overall respiratory status is stable. No dyspnea at rest and she remains on 3 days of oxygen by nasal cannula with a pulse ox of 99 to 100%. No other significant events overnight. The patient needs to be considered for TPN. 1. 11/28/2024, the patient underwent EGD this morning and the patient was found to have no evidence of any duodenal obstruction. NG tube is still in place attached to low intermittent suction. Patient is on D5 normal saline at rate of 75 cc an hour. The patient may need to be started on TPN for nutritional support. Remains on IV Zosyn. Overall respiratory status is unchanged and the patient remains on 2 L of oxygen nasal cannula with a pulse ox of 99%. White cell count is at 10 with a hemoglobin 8.9 and a platelet count of 438. BUN is at 7 with a creatinine of 0.5 and a sodium level is at 134 and a potassium level is at 3.3. The ascitic fluid that was aspirated earlier was malignant and consistent with pulmonary non-small cell lung cancer. The output from the NG tube has been 750 cc over the past 8 hours. The abdominal drain has produced another 500 cc of output. On 11/29/2024, the patient's abdominal drain has been dislodged and the NG tube has been removed. She is trying to take some clear liquid diet. She had a small bowel movement. Noted ascitic fluid that was drained earlier was consistent with malignancy. A follow-up CAT scan of the abdomen was ordered for today. EGD that was done on 11/28/2024 showed gastritis without any obstruction. Respiratory status remains unchanged. She remains on 3 L with a pulse ox of 99%. She is quite debilitated. 11/30/2024, the patient is taking some limited amount of clear liquid diet. She states that she is passing some gas and flatus. CAT scan of the abdomen was repeated on 11/29/2024 and there is decrease in the amount of abdominal ascitic fluid. The drainage tube has been removed. There is bilateral pleural effusion. There is diffuse anasarca. There is also evidence of omental caking as the patient also has malignant ascitic fluid. Doppler lower extremities been negative. Chest x-ray is showing bilateral pleural effusion and consolidation right more than left. She remains on oxygen at 2 L/min nasal cannula with pulse ox of 98%. Continues to have some sinus tachycardia. Oncology has been consulted. On 12/01/2024, overall condition is stable and unchanged. The patient denies having any significant shortness of breath. Denies having any nausea vomiting or abdominal pain. She has a partial small bowel obstruction with the third portion of the duodenum. She is also status post drainage of the ascitic fluid in the abdomen determined to be malignant. She is passing flatus. She is passing bowel movement. The white cell count of 12.7 with a hemoglobin 8.3 and a platelet count of 458. BUN is at 4 with a creatinine 0.49 and sodium levels at 133 and a potassium level is at 3.3. LFTs are normal. Remains on DuoNeb nebulized treatments [id number]. Remains on Symbicort. Remains on Lovenox DVT prophylaxis. Fentanyl patch for pain control. Oxygen requirements remain unchanged and stable and the patient remains on 3 L with a pulse ox of 97%. Objective - Vital Signs Vital signs: Vital Signs Temp 97.9 F 12/01/24 07:00 Pulse 108 H 12/01/24 11:23 Resp 15 12/01/24 07:00 BP 128/78 12/01/24 07:00 Pulse Ox 98 12/01/24 07:40 FiO2 Intake & Output 11/30/24 12/01/24 12/01/24 18:59 06:59 18:59 Intake Total 2040 480 Output Total 900 850 Balance 1140 -370 Intake: Oral 2040 480 Output: Urine 900 850 Other: Voiding Method Diaper # Voids 1 # Bowel Movements 1 - Exam No acute distress, oriented 3. Currently on 3 days of oxygen by nasal cannula. Calm and comfortable. NG tube removed HEENT examination is grossly unremarkable. Mucous membranes are moist. No oral lesions. NG tube is noted. Neck supple. Full range of motion. No adenopathy thyromegaly or neck vein distention. Cardiovascular examination reveals regular rhythm rate. S1-S2 normal. No S3 or S4. No discernible murmur noted. Lungs reveal diminished breath sounds on the right with rhonchi. The left lung is essentially clear. Abdomen mildly distended, without bowel sounds. Tender on palpation. The abdominal drain removed Extremities are intact. No cyanosis clubbing or edema. Skin is without rash or lesion. Neurologic examination is brief but nonfocal. Profound weakness in all 4 extremities. - Labs CBC & Chem 7: 12/01/24 05:14 12/01/24 05:14 Labs: Abnormal Lab Results - Last 24 Hours (Table) 11/29/24 11/30/24 11/30/24 Range/Units 23:58 12:06 17:18 WBC (3.8-10.6) k/uL RBC (3.80-5.40) m/uL Hgb (11.4-16.0) gm/dL Hct (34.0-46.0) % MCHC (31.0-37.0) g/dL RDW (11.5-15.5) % Plt Count (150-450) k/uL Sodium (137-145) mmol/L Potassium (3.5-5.1) mmol/L Carbon Dioxide (22-30) mmol/L BUN (7-17) mg/dL Creatinine (0.52-1.04) mg/dL Glucose (74-99) mg/dL POC Glucose (mg/dL) 139 H 181 H (70-110) mg/dL Calcium (8.4-10.2) mg/dL Total Protein (6.3-8.2) g/dL Albumin (3.5-5.0) g/dL Procalcitonin 5.92 H (0.02-0.50) ng/mL 12/01/24 12/01/24 12/01/24 Range/Units 01:03 05:14 05:14 WBC 12.7 H (3.8-10.6) k/uL RBC 3.68 L (3.80-5.40) m/uL Hgb 9.3 L (11.4-16.0) gm/dL Hct 33.2 L (34.0-46.0) % MCHC 27.9 L (31.0-37.0) g/dL RDW 16.9 H (11.5-15.5) % Plt Count 458 H (150-450) k/uL Sodium 133 L (137-145) mmol/L Potassium 3.3 L (3.5-5.1) mmol/L Carbon Dioxide 34 H (22-30) mmol/L BUN 4 L (7-17) mg/dL Creatinine 0.49 L (0.52-1.04) mg/dL Glucose 114 H (74-99) mg/dL POC Glucose (mg/dL) 127 H (70-110) mg/dL Calcium 7.5 L (8.4-10.2) mg/dL Total Protein 4.0 L (6.3-8.2) g/dL Albumin 1.9 L (3.5-5.0) g/dL Procalcitonin (0.02-0.50) ng/mL 12/01/24 Range/Units 05:43 WBC (3.8-10.6) k/uL RBC (3.80-5.40) m/uL Hgb (11.4-16.0) gm/dL Hct (34.0-46.0) % MCHC (31.0-37.0) g/dL RDW (11.5-15.5) % Plt Count (150-450) k/uL Sodium (137-145) mmol/L Potassium (3.5-5.1) mmol/L Carbon Dioxide (22-30) mmol/L BUN (7-17) mg/dL Creatinine (0.52-1.04) mg/dL Glucose (74-99) mg/dL POC Glucose (mg/dL) 118 H (70-110) mg/dL Calcium (8.4-10.2) mg/dL Total Protein (6.3-8.2) g/dL Albumin (3.5-5.0) g/dL Procalcitonin (0.02-0.50) ng/mL Assessment and Plan Plan: Abdominal pain with small bowel obstruction and a large loculated fluid collection displacing the normal appearing small bowel loops and colon with a transition zone appearing to be within the proximal jejunum. Patient has an NG tube for decompression. At the same time, the patient underwent an IR guided placement of a drainage catheter in regards to the abdominal fluid collection. Output from the NG tube remains considerably high. The abdominal drain is still in place. The patient continues to have bowel obstruction. The ascitic fluid aspirated was positive for malignancy consistent with non-small cell lung cancer. Repeat EGD was done on 11/18/2024 showed gastritis without evidence of any duodenal obstruction. The NG tube and the abdominal drain has been dislodged and the patient was advised to clear liquid diet. Follow-up CAT scan of the abdomen and pelvis on 11/29/2024 shows decrease in the ascitic fluid. There is omental caking. Patient is taking clear liquid diet. Oral intake remains quite diminished. Passing flatus. Abdominal pain, secondary to small bowel obstruction Stage IV lung cancer. The patient has recurrent metastatic non-small cell lung cancer, patient had mini right thoracotomy with biopsy on July, revealin g invasive poorly differentiated non-small cell carcinoma consistent with pulmonary adenocarcinoma type. Previously maintained on chemotherapy with Alimta and carboplatin, could not tolerate side effects. PET scan taken on 07/25/2024 showing overall mixed response to therapy with slightly increased radiotracer activity throughout the right pleural and anterior right seventh rib with mild decrease in radiotracer activity within the right 10th rib and posterior costophrenic pleural region. Development of nonspecific left anterior peritoneal stranding changes with mild FDG uptake, could represent early peritoneal metastasis versus other etiologies such as infectious/inflammatory nature. Currently on Opdivo, has received 2 infusions so far. She has a known history of lung cancer originally diagnosed with wedge resection of the left upper lobe October 2019, as well as, a right lung resection in February 2021. A follow-up PET scan in February 2023 indicating possible disease recurrence. 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 Her established oncologist is Dr. Castillo. Previous hospitalization, secondary to opioid-induced constipation. Advanced COPD with an FEV1 of 31% of predicted The patient has ongoing volume loss and extensive pleural-parenchymal opacities throughout the right hemithorax and the patient has a pleural rind in the lower lung there is a progressively increasing since 2022. There is also confluent lower lobe opacities that have increased since 2022 and this is consistent with progression of her underlying non-small cell lung cancer Chronic hypoxic respiratory failure maintained on oxygen 2 L/min nasal cannula History of pulmonary embolism, maintained on anticoagulation with Eliquis History of hyperlipidemia. History of gastroesophageal reflux disease. History of tobacco use. Plan: Continue clear liquid diet, advance diet as tolerated. General surgery is on the case CAT scan of the abdomen and pelvis with p.o. contrast done on 11/29/2024 was noted Keep the patient oxygen 3 L/min nasal cannula The patient had a follow-up EGD stated it showed no evidence of any duodenal obstruction Ascitic fluid is malignant General surgery is on the case Consult medical oncology Overall prognosis remains poor and will continue to follow
[2024-12-01 17:28] LABS: Glucose,Whole Blood 106 mg/dL (70-110)
[2024-12-01 19:55] LABS: Glucose,Whole Blood 116 mg/dL (70-110)
[2024-12-02 02:24] LABS: Glucose,Whole Blood 117 mg/dL (70-110)
[2024-12-02 07:47] LABS: Glucose,Whole Blood 93 mg/dL (70-110)
[2024-12-02 08:46] LABS: Basophils # (A) 0.09 X 10*3/uL (0.00-0.10); Basophils % (A) 0.6 %; Eosinophils # (A) 0.04 X 10*3/uL (0.04-0.35); Eosinophils % (A) 0.3 %; HCT 33.4 % (37.2-46.3); MCH 24.5 pg (27.0-32.0); MCHC 26.9 g/dL (32.0-37.0); MCV 90.8 FL (80.0-97.0); Mean Platelet Volume 10.4 FL (9.5-12.2); Monocytes # (A) 1.07 X 10*3/uL (0.20-1.00); Monocytes % (A) 7.4 %; NRBC Per 100 WBC 0 X 10*3/uL (0.00-0.01); Neutrophils # (A) 11.62 X 10*3/uL (1.80-7.70); Neutrophils % (A) 80.1 %; Platelet Count 500 X 10*3/uL (140-440); RBC 3.68 X 10*6/uL (4.10-5.20); RDW 17.7 % (11.5-14.5); WBC 14.51 X 10*3/uL (4.50-10.00)
[2024-12-02 10:23] LABS: INR 1.1 (<1.2); Prothrombin Time 12.1 sec (10.0-12.5)
[2024-12-02 10:32] LABS: ALT 17 U/L (8-44); AST 19 U/L (13-35); Albumin 2.2 g/dL (3.8-4.9); Albumin/Globulin Ratio 1.22 Ratio (1.60-3.17); Alkaline Phosphatase 96 U/L (41-126); Blood Urea Nitrogen 5.1 mg/dL (9.0-27.0); Calcium 7.9 mg/dL (8.7-10.3); Carbon Dioxide 28.1 mmol/L (21.6-31.8); Chloride 101 mmol/L (96-109); Globulin 1.8 g/dL (1.6-3.3); Glucose 95 mg/dL (70-110); Magnesium 1.8 mg/dL (1.5-2.4); Sodium 139 mmol/L (135-145); Total Bilirubin <0.2 mg/dL (0.3-1.2)
[2024-12-02 12:56] LABS: Glucose,Whole Blood 97 mg/dL (70-110)
--- NOTE | 2024-12-02 14:38 | P.PN ---
Subjective Progress Note Date: 12/02/24 59-year-old female well-known to me. She presents to the emergency department, on November 22, at about 3 PM, complaining of generalized weakness, and abdominal pain. She apparently was in the hospital recently, for multiple problems including severe abdominal pain, related to opioid induced constipation, nausea, and vomiting. The patient also has a history of COPD, and has a history of non- small cell lung cancer, involving both lungs, with previous resections, done at [facility]. She unfortunately has recurrent lung cancer. She is not undergoing any treatment at this time. The patient is seen today in room 367. Her chest x-ray shows a right-sided pleural effusion, and a small left-sided pleural effusion. Her CT of the chest, shows no progression of her lung cancer. She is currently on 2 L. She is thought to have a possible bowel obstruction, and an NG tube will be placed. She is getting lactated Ringer's at 100 cc an hour. She is getting nasal O2 at 2 L. Current labs include white count 13.8, hemoglobin 9.6, hematocrit 32.8, and a platelet count of 547,000. Sodium 132, potassium 3.8, chloride 95, CO2 25, BUN 13, creatinine 0.55. Glucose was 92. Calcium is 8.7. Procalcitonin level was normal at 0.19. Viral screen was negative. CT scan of the abdomen and pelvis appears to show an obstruction, at the third portion of the duodenum, and significant dilatation of the duodenum, with a large fluid-filled loculated collection within the anterior abdomen. There is a small left pleural effusion. Progress note dated November 24, 2024. 59-year-old female seen today in room 367. She was admitted with abdominal discomfort. She is currently resting comfortably in bed. No acute distress. She is getting adequate pain control. She is currently on room air. An NG tube was noted. She is getting saline at 10 cc an hour, and lactated Ringer's at 75 cc an hour. Procalcitonin level is 0.19. She continues on Zosyn. Current labs include a white count of 11, hemoglobin 8.9, hematocrit 29.8, platelet count of 534,000. Sodium 133, potassium 3.8, chlorides 94, CO2 29, BUN 13, creatinine 0.63. Blood cultures are negative. Chest x-ray is essentially unchanged. On 11/25/2024, the patient is being seen for a follow-up. The patient has an NG tube in place for small bowel obstruction the patient has also a complex fluid collection in the anterior abdomen as revealed on the CAT scan of the abdomen pelvis was obtained on 11/22/2024. Specifically, the patient has obstruction likely at the level of the third portion of the duodenum with significant dilatation of the duodenum. Large fluid filled loculated collection is also present in the anterior abdomen with a small left-sided pleural effusion. The proximal bowel loops are dilated and there is a large loculated fluid collection displacing normal-appearing small bowel loops and colon. The transition point is possibly the proximal jejunum. CT of the chest was also done on 11/22/2024 revealing a small left-sided pleural effusion. No evidence of any pulmonary embolism. There was a subcarinal lymph node in addition to some consolidation involving the right lung base. The patient has an NG tube in place and total amount of output has been 400 cc for yesterday and 200 cc this morning. The [facility] ient had a IR guided placement of a drain in the abdomen with a total of 2.6 L of dark red tea colored fluid being removed and the fluid was sent for cytology. The patient remains on IV Zosyn. The patient remains on IV fluids. NG tube attached to low intermittent suction.Labs from today showed a white cell count of 10.8 with a hemoglobin 8.5 and a platelet count of 562. The sodium is at 134, potassium is at 3.8, BUN is 12 with a creatinine of 0.6. On 11/26/2024, the patient is being seen for a follow-up. The patient underwent a IR guided drainage of the abdominal fluid and immediately a total of 2.4 L of fluid was aspirated. The drainage is less on today's evaluation. NG tube remains in place for now and the patient has produced approximately 400 cc over the past 8 hours from the NG tube and a total of 120 cc from the abdominal drain. Bowel sounds are hypoactive. She is passing flatus. She remains NPO. No bowel movement activity for now. Respiratory status remains stable and the patient remains on oxygen at 3 L with a pulse ox of 99 to 100%. The patient remains on DuoNeb the regiment [id number] and Symbicort as maintenance regarding COPD. The patient remains on IV Zosyn as an empiric antibiotic coverage. Rest of the medications remain unchanged. General surgery is on the case. The patient remains NPO. The patient may need a small bowel follow- through if there is no improvement over the next 24 to 48 hours. On 11/27/2024, condition essentially unchanged. The patient remains NPO. NG tube is in place and total amount of output from the NG tube has been 600 cc overnight. The same time, the patient had another 150 cc drainage from the abdominal drain. Abdomen is not distended. Bowel sounds are absent. No bowel movement activity yet. The patient is scheduled to undergo an EGD tomorrow. Awaiting ascitic fluid cytology. White cell count is at 12 with a hemoglobin 9 and a platelet count of 428. BUN is 6 with a creatinine of 0.5 and a sodium levels at 135. Overall respiratory status is stable. No dyspnea at rest and she remains on 3 days of oxygen by nasal cannula with a pulse ox of 99 to 100%. No other significant events overnight. The patient needs to be considered for TPN. 1. 11/28/2024, the patient underwent EGD this morning and the patient was found to have no evidence of any duodenal obstruction. NG tube is still in place attached to low intermittent suction. Patient is on D5 normal saline at rate of 75 cc an hour. The patient may need to be started on TPN for nutritional support. Remains on IV Zosyn. Overall respiratory status is unchanged and the patient remains on 2 L of oxygen nasal cannula with a pulse ox of 99%. White cell count is at 10 with a hemoglobin 8.9 and a platelet count of 438. BUN is at 7 with a creatinine of 0.5 and a sodium level is at 134 and a potassium level is at 3.3. The ascitic fluid that was aspirated earlier was malignant and consistent with pulmonary non-small cell lung cancer. The output from the NG tube has been 750 cc over the past 8 hours. The abdominal drain has produced another 500 cc of output. On 11/29/2024, the patient's abdominal drain has been dislodged and the NG tube has been removed. She is trying to take some clear liquid diet. She had a small bowel movement. Noted ascitic fluid that was drained earlier was consistent with malignancy. A follow-up CAT scan of the abdomen was ordered for today. EGD that was done on 11/28/2024 showed gastritis without any obstruction. Respiratory status remains unchanged. She remains on 3 L with a pulse ox of 99 %. She is quite debilitated. 11/30/2024, the patient is taking some limited amount of clear liquid diet. She states that she is passing some gas and flatus. CAT scan of the abdomen was repeated on 11/29/2024 and there is decrease in the amount of abdominal ascitic fluid. The drainage tube has been removed. There is bilateral pleural effusion. There is diffuse anasarca. There is also evidence of omental caking as the patient also has malignant ascitic fluid. Doppler lower extremities been negative. Chest x-ray is showing bilateral pleural effusion and consolidation right more than left. She remains on oxygen at 2 L/min nasal cannula with pulse ox of 98%. Continues to have some sinus tachycardia. Oncology has been consulted. On 12/01/2024, overall condition is stable and unchanged. The patient denies having any significant shortness of breath. Denies having any nausea vomiting o r abdominal pain. She has a partial small bowel obstruction with the third portion of the duodenum. She is also status post drainage of the ascitic fluid in the abdomen determined to be malignant. She is passing flatus. She is passing bowel movement. The white cell count of 12.7 with a hemoglobin 8.3 and a platelet count of 458. BUN is at 4 with a creatinine 0.49 and sodium levels at 133 and a potassium level is at 3.3. LFTs are normal. Remains on DuoNeb nebulized treatments [id number]. Remains on Symbicort. Remains on Lovenox DVT prophylaxis. Fentanyl patch for pain control. Oxygen requirements remain unchanged and stable and the patient remains on 3 L with a pulse ox of 9 7%. The patient is seen today December 02, 2024 in follow-up on the regular medical floor. Awake and alert in no acute distress. Maintaining O2 saturations in the 90s on 3 L/min per nasal cannula. She is currently up with a walker and assistance. She denies any worsening shortness of breath, cough or congestion. She remains quite weak. Abdominal fluid cultures reveal no growth. Gastric biopsy pending. Dopplers of the lower extremities were negative for DVT. White count 14.5. Hemoglobin 9.0. Platelets 500. Sodium 139. Potassium 4.0. Bicarb 28. BUN 5. Creatinine 0.5. Glucose 95. INR 1.1. She remains on DuoNeb and elations, Symbicort. Lovenox for DVT prophylaxis. Her pain is well- managed. Objective - Vital Signs Vital signs: Vital Signs Temp 97.7 F 12/02/24 12:59 Pulse 115 H 12/02/24 12:59 Resp 16 12/02/24 12:59 BP 115/78 12/02/24 12:59 Pulse Ox 95 12/02/24 12:59 FiO2 Intake & Output 12/01/24 12/02/24 12/02/24 18:59 06:59 18:59 Intake Total 240 540 Balance 240 540 Intake: Oral 240 540 Other: Voiding Method Diaper Incontinent External Catheter # Voids 1 2 # Bowel Movements 1 - Exam GENERAL EXAM: Alert, weak, frail, 59-year-old female, on 3 L nasal cannula, fairly comfortable in no apparent distress. HEAD: Normocephalic. EYES: Normal reaction of pupils, equal size. NOSE: Clear with pink turbinates. THROAT: No erythema or exudates. NECK: No masses, no JVD. CHEST: No chest wall deformity. LUNGS: Equal air entry with bilateral scattered rhonchi, crackles in the posterior bases right greater than left. CVS: S1 and S2 normal with no audible murmur, regular rhythm. ABDOMEN: No hepatosplenomegaly, normal bowel sounds, no guarding or rigidity. SPINE: No scoliosis or deformity SKIN: No rashes CENTRAL NERVOUS SYSTEM: No focal deficits, tone is normal in all 4 extremities. EXTREMITIES: There is no peripheral edema. No clubbing, no cyanosis. Peripheral pulses are intact. - Labs CBC & Chem 7: 12/02/24 03:37 12/02/24 03:37 Labs: Abnormal Lab Results - Last 24 Hours (Table) 12/01/24 12/02/24 12/02/24 Range/Units 19:54 02:23 03:37 WBC 14.51 H (4.50-10.00) X 10*3/uL RBC 3.68 L (4.10-5.20) X 10*6/uL Hgb 9.0 L (12.0-15.0) g/dL Hct 33.4 L (37.2-46.3) % MCH 24.5 L (27.0-32.0) pg MCHC 26.9 L (32.0-37.0) g/dL RDW 17.7 H (11.5-14.5) % Plt Count 500 H (140-440) X 10*3/uL Immature Gran # 0.09 H (0.00-0.04) X 10*3/uL Neutrophils # 11.62 H (1.80-7.70) X 10*3/uL Monocytes # 1.07 H (0.20-1.00) X 10*3/uL BUN (9.0-27.0) mg/dL Creatinine (0.6-1.5) mg/dL BUN/Creatinine Ratio (12.00-20.00) Ratio POC Glucose (mg/dL) 116 H 117 H (70-110) mg/dL Calcium (8.7-10.3) mg/dL Total Bilirubin (0.3-1.2) mg/dL Total Protein (6.2-8.2) g/dL Albumin (3.8-4.9) g/dL Albumin/Globulin Ratio (1.60-3.17) Ratio 02/03/25 Range/Units 03:37 WBC (4.50-10.00) X 10*3/uL RBC (4.10-5.20) X 10*6/uL Hgb (12.0-15.0) g/dL Hct (37.2-46.3) % MCH (27.0-32.0) pg MCHC (32.0-37.0) g/dL RDW (11.5-14.5) % Plt Count (140-440) X 10*3/uL Immature Gran # (0.00-0.04) X 10*3/uL Neutrophils # (1.80-7.70) X 10*3/uL Monocytes # (0.20-1.00) X 10*3/uL BUN 5.1 L (9.0-27.0) mg/dL Creatinine 0.5 L (0.6-1.5) mg/dL BUN/Creatinine Ratio 10.20 L (12.00-20.00) Ratio POC Glucose (mg/dL) (70-110) mg/dL Calcium 7.9 L (8.7-10.3) mg/dL Total Bilirubin <0.2 L (0.3-1.2) mg/dL Total Protein 4.0 L (6.2-8.2) g/dL Albumin 2.2 L (3.8-4.9) g/dL Albumin/Globulin Ratio 1.22 L (1.60-3.17) Ratio Assessment and Plan Assessment: Abdominal pain with small bowel obstruction and a large loculated fluid collection displacing the normal appearing small bowel loops and colon with a transition zone appearing to be within the proximal jejunum. Patient has an NG tube for decompression. At the same time, the patient underwent an IR guided placement of a drainage catheter in regards to the abdominal fluid collection. Output from the NG tube remains considerably high. The abdominal drain is still in place. The patient continues to have bowel obstruction. The ascitic fl uid aspirated was positive for malignancy consistent with non-small cell lung cancer. Repeat EGD was done on 11/18/2024 showed gastritis without evidence of any duodenal obstruction. The NG tube and the abdominal drain has been dislodged and the patient was advised to clear liquid diet. Follow-up CAT scan of the abdomen and pelvis on 11/29/2024 shows decrease in the ascitic fluid. There is omental caking. Patient is taking clear liquid diet. Oral intake remains quite diminished. Passing flatus. Stage IV lung cancer. 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 Previously maintained on chemotherapy with Alimta and carboplatin, could not tolerate side effects. PET scan taken on 07/25/2024 showing overall mixed response to therapy with slightly increased radiotracer activity throughout the right pleural and anterior right seventh rib with mild decrease in radiotracer activity within the right 10th rib and posterior costophrenic pleural region. Development of nonspecific left anterior peritoneal stranding changes with mild FDG uptake, could represent early peritoneal metastasis versus other etiologies such as infectious/inflammatory nature. Currently on Opdivo, has received 2 infusions so far. She has a known history of lung cancer originally diagnosed with wedge resection of the left upper lobe October 2019, as well as, a right lung resection in February 2021. A follow-up PET scan in February 2023 indicating possible disease recurrence. 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 Her established oncologist is Dr. Castillo. Previous hospitalization, secondary to opioid-induced constipation. Advanced COPD with an FEV1 of 31% of predicted The patient has ongoing volume loss and extensive pleural-parenchymal opacities throughout the right hemithorax and the patient has a pleural rind in the lower lung there is a progressively increasing since 2022. There is also confluent lower lobe opacities that have increased since 2022 and this is consistent with progression of her underlying non-small cell lung cancer Chronic hypoxic respiratory failure maintained on oxygen 2 L/min nasal cannula History of pulmonary embolism, maintained on anticoagulation with Eliquis History of hyperlipidemia. History of gastroesophageal reflux disease. History of tobacco use. Plan: The patient was seen and evaluated Labs and medications reviewed Continue bronchodilators Titrate the FiO2 as tolerated Lovenox for DVT prophylaxis Assure adequate pain control We will continue to follow I have personally seen and examined the patient, performed the documentation and the assessment and plan as written. Number of minutes spent on the visit: 10 Dictation was produced using [employer] dictation software. Please excuse any grammatical, word or spelling errors.
--- NOTE | 2024-12-02 14:52 | P.PN ---
Subjective Progress Note Date: 12/02/24 Hospital course: Patient is a very pleasant 59-year-old female with a past medical history of COPD with chronic hypoxic respiratory failure home oxygen dependence on 2 L, stage IV lung cancer on Opdivo and has received 2 infusions so far follows outpatient with Dr. Castillo, history of previous pulmonary emboli, hyperlipidemia, opioid-induced constipation, and GERD. Patient presented to the hospital on 11/22/24 with a chief complaint of complaint of generalized weakness, abdominal pain, nausea, and vomiting. Upon arrival to our facility, patient underwent evaluation in the emergency department. Vital signs upon arrival show blood pressure 118/74, heart rate 130, respiratory rate 20, temp 98.1 F, and SpO2 of 96% on room air. EKG completed showing sinus tachycardia at 123 bpm. Labs completed and reviewed. CBC showing leukocytosis with WBC count of 12.4, normocytic anemia with hemoglobin of 10.2, and thrombocytosis with platelet count of 650. Coagulation profile showing elevated INR of 1.2 and elevated D- dimer of 1.64. BMP showing hypochloremic hyponatremia with sodium of 131 and chloride of 91. Blood glucose was low at 68. Lactic acid was normal findings at 1.1. Magnesium 1.7. Liver profile showing elevated alkaline phosphatase of 129 otherwise normal findings. Troponin was negative at less than 0.012. proBNP 215. Albumin slightly low at 3.3. Procalcitonin negative at 0.19. Urinalysis negative for infection. Influenza A, influenza B, RSV, and COVID PCR negative. CT abdomen and pelvis was completed showing possible small bowel obstruction at the third position of the duodenum with significant dilation of the duodenum, large fluid-filled loculated collection within the anterior abdomen, small pleural effusion, and thickened left adrenal gland. Chest x-ray completed showing moderate right and minimal posterior left pleural effusions. CTA chest reporting stable appearance of patient's right lung cancer, new left pleural effusion, and subcarinal lymph node. 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 On 11/25/2026 patient underwent insertion of ultrasound guided abdominal drain placement for visceral fluid drainage. On 11/26/2024 patient underwent small bowel follow-through which revealed findings suggestive of proximal obstruction within the region of the third portion of the duodenum. Patient taken for EGD by Dr. Phillips on 11/28/2024. EGD reporting mild inflammatory changes in the first portion of the duodenum, biopsies were obtained and a portion of the gastric body just distal to the GE junction with findings of focal gastritis versus early ulceration and biopsies were obtained from this location as well. Physical exam: Patient seen and fully evaluated at bedside this morning. She is currently tolerating a full liquid diet and denies any further episodes of nausea or vomiting. She reports last bowel movement was a small bowel movement last night. She reports she continuously feels short of breath and is currently on 3 L O2 via nasal cannula maintaining SpO2 of 98%. She reports pain is "somewhat" better. She remains on Dilaudid TRADEMARK AFFIXER. Vital signs reviewed and stable. General: Nontoxic, no distress and appears stated age. Thin and frail, chronically ill-appearing. Derm: Skin warm and dry, normal coloration for ethnicity. Head: Atraumatic, normocephalic and symmetric. Eyes: EOM's intact, no lid lag, and anicteric sclera Mouth: no lip lesions, mucus membranes moist Cardiovascular: regular rate and rhythm with normal S1S2, no murmur, positive posterior tibial pulses bilaterally, and cap refill < 2 seconds. Lungs: Respirations even, regular, and unlabored on room air. Lungs diminished worse on right, no rhonchi, no rales, no wheezing, and no accessory muscle usage. Abdominal: soft distended, diffuse tenderness upon palpation, no guarding, no appreciable organomegaly. Abdominal drain in place. Ext: ROM intact. No gross muscle atrophy, bilateral lower extremity pedal edema, no contractures Neuro: Speech clear, face symmetrical and CN II-XII grossly intact with no noted focal neuro deficits Psych: Alert and oriented to person, place, time, and situation. Appropriate and pleasant affect. Assessment and Plan of Care: Recurrent pleural effusions with chronic small right pleural effusion, recurrent metastatic infusions Stage IV non-small cell lung cancer with history of wedge resection of left upper lobe and wedge resection of right lower lobe COPD with chronic hypoxic respiratory failure Sinus tachycardia, secondary to above -Pulmonology following, reviewed documentation in chart. -Oncology following, reviewed documentation in chart oncologist discussed with patient current regimen is not working and discussed options of alternative therapy versus comfort care and patient requesting continued aggressive therapy stating she is not interested in comfort care at this time. Awaiting further recommendations. -Patient completed 7-day course of IV antibiotics with Zosyn. -Patient on Dilaudid TRADEMARK AFFIXER and fentanyl patch for pain management with as needed [place] 10/325 mg tablets.. -Continue supplemental oxygen titrate as needed to maintain SpO2 equal to or greater than 92%. -Continue DuoNebs scheduled 4 times daily and as needed for shortness of breath and/or wheezing. -Continue Symbicort 160-4.5 mcg inhaler 2 puffs twice daily -Encourage incentive spirometry. -Currently on Opdivo, has received 2 infusions so far and follows outpatient with Dr. Castillo. -Telemetry monitoring. Partial small bowel obstruction with complex fluid collection in anterior abdomen, small bowel obstruction resolved Hypochloremic hyponatremia Opioid-induced constipation -General Surgery following, reconsulted IR for reinsertion of abdominal/visceral fluid drain placement. -Patient underwent EGDby Dr. Phillips on 11/28/2024. EGD reporting mild inflammatory changes in the first portion of the duodenum, biopsies were obtained and a portion of the gastric body just distal to the GE junction with findings of focal gastritis versus early ulceration and biopsies were obtained from this location as well. -Gastric biopsies pending -Visceral fluid culture revealing no growth. -Continue Reglan milligrams every 6 hours scheduled for continued promotion of gastric motility. -Continue Linzess 145 mcg daily and Senokot 8.6 mg twice daily. -GI prophylaxis with Protonix 40 mg IVP twice daily. -NG tube discontinued on 11/28/2024. -Continued close monitoring of I's and O's Hypomagnesemia Resolved magnesium 1.8. Hypokalemia Resolved potassium 4.0. Leukocytosis, likely reactive Thrombocytosis, likely reactive -Procalcitonin negative. Blood culture showing no growth to date. Visceral/peritoneal fluid culture negative. -Patient completed 7-day course of IV antibiotics with Zosyn 3.375 g every 8 hours. Will hold off on further antibiotics at this time. Data and imaging reviewed: Vital signs reviewed. Blood pressure 116/76, heart rate 119, respiratory rate 15, temp 97.4 F, and SpO2 of 98% on 3 L. Morning labs reviewed. CBC showing leukocytosis with WBC count of 14.51, hemoglobin 9.0, and thrombocytosis with platelet count of 500. BMP unremarkable. Blood glucose 95. Calcium 7.9 with corrected calcium of 9.3. Magnesium 1.8. Liver profile unremarkable with exception of hypoalbuminemia with albumin of 2.2. CODE STATUS: Full code DVT prophylaxis: Heparin Anticipated discharge date: Pending clinical course Anticipated discharge place: Pending clinical course Patient was seen independently by Nurse Pracitioner. This document was prepared using [employer] dictation software. Please allow for errors in electrician front, while rare they do occur. Charlie Hylton NP rendered care for this patient independently, reviewed the findings and plan as documented in the note above and agree with plan. I did not physically speak with or examine the patient on this date. Objective - Vital Signs Vital signs: Vital Signs Temp 97.4 F L 12/02/24 06:56 Pulse 120 H 12/02/24 08:47 Resp 15 12/02/24 06:56 BP 116/76 12/02/24 06:56 Pulse Ox 98 12/02/24 06:56 FiO2 Intake & Output 12/01/24 12/02/24 12/02/24 18:59 06:59 18:59 Intake Total 240 540 Balance 240 540 Intake: Oral 240 540 Other: Voiding Method Diaper Incontinent External Catheter # Voids 1 2 # Bowel Movements 1 - Labs CBC & Chem 7: 12/02/24 03:37 12/02/24 03:37 Labs: Abnormal Lab Results - Last 24 Hours (Table) 12/01/24 12/01/24 12/01/24 Range/Units 05:14 12:29 19:54 WBC (4.50-10.00) X 10*3/uL RBC (4.10-5.20) X 10*6/uL Hgb (12.0-15.0) g/dL Hct (37.2-46.3) % MCH (27.0-32.0) pg MCHC (32.0-37.0) g/dL RDW (11.5-14.5) % Plt Count (140-440) X 10*3/uL Immature Gran # (0.00-0.04) X 10*3/uL Neutrophils # (1.80-7.70) X 10*3/uL Neutrophils # (Manual) 9.91 H (1.3-7.7) k/uL Monocytes # (0.20-1.00) X 10*3/uL Monocytes # (Manual) 1.14 H (0-1.0) k/uL Metamyelocytes # (Man) 0.13 H (0) k/uL Myelocytes # (Manual) 0.13 H (0) k/uL POC Glucose (mg/dL) 122 H 116 H (70-110) mg/dL 12/02/24 12/02/24 Range/Units 02:23 03:37 WBC 14.51 H (4.50-10.00) X 10*3/uL RBC 3.68 L (4.10-5.20) X 10*6/uL Hgb 9.0 L (12.0-15.0) g/dL Hct 33.4 L (37.2-46.3) % MCH 24.5 L (27.0-32.0) pg MCHC 26.9 L (32.0-37.0) g/dL RDW 17.7 H (11.5-14.5) % Plt Count 500 H (140-440) X 10*3/uL Immature Gran # 0.09 H (0.00-0.04) X 10*3/uL Neutrophils # 11.62 H (1.80-7.70) X 10*3/uL Neutrophils # (Manual) (1.3-7.7) k/uL Monocytes # 1.07 H (0.20-1.00) X 10*3/uL Monocytes # (Manual) (0-1.0) k/uL Metamyelocytes # (Man) (0) k/uL Myelocytes # (Manual) (0) k/uL POC Glucose (mg/dL) 117 H (70-110) mg/dL
--- NOTE | 2024-12-02 15:42 | P.PN ---
Subjective Progress Note Date: 12/02/24 SURGICAL PROGRESS NOTE CHIEF COMPLAINT: Abdominal pain HISTORY OF PRESENT ILLNESS: Patient sitting at bedside chair. Patient reports having flatus and bowel movements. Denies any nausea or vomiting. Patient tolerating a full liquid diet. Afebrile. Afebrile. Tachycardic. On room air satting at 95%. During Dr. Garcia's afternoon rounds he did note that the patient was more short of breath. Abdominal fluid cytology had shown malignant fluid. Positive for metastatic non-small cell carcinoma compatible with metastatic pulmonary adenocarcinoma. Oncology on consult. WBC is up to 14.5. Patient currently off antibiotics. PHYSICAL EXAM: VITAL SIGNS: Reviewed. GENERAL: Well-developed in no acute distress. ABDOMEN: soft, nondistended. NEUROLOGIC: Alert and oriented. Cranial nerves II through XII grossly intact. ASSESSMENT: 1. Partial small bowel obstruction within the third portion of the duodenum. EGD performed on 130 showed gastritis with no obstruction. 2. Complex fluid collection in the anterior abdomen status post drain placement. 2. Stage IV lung cancer PLAN: -Advance diet to low fiber -Patient scheduled for peritoneal drainage of fluid tomorrow by IR service -Continue supportive care Physician Agent Producer note has been reviewed by physician. Signing provider agrees with the documented findings, assessment, and plan of care. Objective - Vital Signs Vital signs: Vital Signs Temp 97.7 F 12/02/24 12:59 Pulse 120 H 12/02/24 15:21 Resp 16 12/02/24 12:59 BP 115/78 12/02/24 12:59 Pulse Ox 95 12/02/24 12:59 FiO2 Intake & Output 12/01/24 12/02/24 12/02/24 18:59 06:59 18:59 Intake Total 240 540 Balance 240 540 Intake: Oral 240 540 Other: Voiding Method Diaper Diaper Incontinent External Catheter External Catheter # Voids 1 2 # Bowel Movements 1 - Labs CBC & Chem 7: 12/02/24 03:37 12/02/24 03:37 Labs: Abnormal Lab Results - Last 24 Hours (Table) 12/01/24 12/02/24 12/02/24 Range/Units 19:54 02:23 03:37 WBC 14.51 H (4.50-10.00) X 10*3/uL RBC 3.68 L (4.10-5.20) X 10*6/uL Hgb 9.0 L (12.0-15.0) g/dL Hct 33.4 L (37.2-46.3) % MCH 24.5 L (27.0-32.0) pg MCHC 26.9 L (32.0-37.0) g/dL RDW 17.7 H (11.5-14.5) % Plt Count 500 H (140-440) X 10*3/uL Immature Gran # 0.09 H (0.00-0.04) X 10*3/uL Neutrophils # 11.62 H (1.80-7.70) X 10*3/uL Monocytes # 1.07 H (0.20-1.00) X 10*3/uL BUN (9.0-27.0) mg/dL Creatinine (0.6-1.5) mg/dL BUN/Creatinine Ratio (12.00-20.00) Ratio POC Glucose (mg/dL) 116 H 117 H (70-110) mg/dL Calcium (8.7-10.3) mg/dL Total Bilirubin (0.3-1.2) mg/dL Total Protein (6.2-8.2) g/dL Albumin (3.8-4.9) g/dL Albumin/Globulin Ratio (1.60-3.17) Ratio 02/03/25 Range/Units 03:37 WBC (4.50-10.00) X 10*3/uL RBC (4.10-5.20) X 10*6/uL Hgb (12.0-15.0) g/dL Hct (37.2-46.3) % MCH (27.0-32.0) pg MCHC (32.0-37.0) g/dL RDW (11.5-14.5) % Plt Count (140-440) X 10*3/uL Immature Gran # (0.00-0.04) X 10*3/uL Neutrophils # (1.80-7.70) X 10*3/uL Monocytes # (0.20-1.00) X 10*3/uL BUN 5.1 L (9.0-27.0) mg/dL Creatinine 0.5 L (0.6-1.5) mg/dL BUN/Creatinine Ratio 10.20 L (12.00-20.00) Ratio POC Glucose (mg/dL) (70-110) mg/dL Calcium 7.9 L (8.7-10.3) mg/dL Total Bilirubin <0.2 L (0.3-1.2) mg/dL Total Protein 4.0 L (6.2-8.2) g/dL Albumin 2.2 L (3.8-4.9) g/dL Albumin/Globulin Ratio 1.22 L (1.60-3.17) Ratio
--- NOTE | 2024-12-02 16:49 | XR ---
EXAMINATION TYPE: XR chest 1V portable DATE OF EXAM: 12/02/2024 4:38 PM COMPARISON: Chest radiographs from 11/29/2024 CLINICAL INDICATION: Female, 59 years old with history of increased SOB; [facility] TECHNIQUE: XR chest 1V portable Frontal view of the chest. FINDINGS: Lungs/Pleura: There is no evidence of pleural effusion, focal consolidation, or pneumothorax. Pulmonary vascularity: Pulmonary vascular congestion. Heart/mediastinum: Cardiomediastinal silhouette is partially obscured due to overlying and adjacent o pacities. Musculoskeletal: No acute osseous pathology. Other findings: None Lines/Tubes: [id number] projecting over the right hemithorax with distal tip at the cavoatrial junction. IMPRESSION: Not significantly changed exam from prior. Cardiomegaly, pulmonary vascular congestion and bilateral pleural effusions. Correlate with BNP for congestive heart failure. [facility], , 12/02/2024 4:47 PM
[2024-12-02 17:47] LABS: Glucose,Whole Blood 96 mg/dL (70-110)
[2024-12-02] MEDS: guaiFENesin 600 MG TABLET.ER PO PRN (22:20)
[2024-12-02] MEDS: ALBUTEROL NEBULIZED 2.5 MG/3 ML INHALATION PRN (23:32)
[2024-12-03 00:06] LABS: Glucose,Whole Blood 116 mg/dL (70-110)
[2024-12-03 05:55] LABS: Glucose,Whole Blood 105 mg/dL (70-110)
[2024-12-03 08:08] VITALS: RESP 24; TEMP 97.6
[2024-12-03] MEDS: FUROSEMIDE 10 MG/ML 4 ML VIAL IV STA (08:28)
[2024-12-03 08:46] LABS: Glucose,Whole Blood 110 mg/dL (70-110)
[2024-12-03 08:47] LABS: Anisocytosis Slight; HCT 35.3 % (34.0-46.0); HGB 9.7 gm/dL (11.4-16.0); Hypochromasia Marked; MCH 24.9 pg (25.0-35.0); MCHC 27.5 g/dL (31.0-37.0); MCV 90.3 fL (80.0-100.0); Mean Platelet Volume 7.8; Platelet Count 616 k/uL (150-450); RBC 3.91 m/uL (3.80-5.40); RDW 16.7 % (11.5-15.5)
[2024-12-03 09:00] LABS: ALT 16 U/L (4-34); AST 21 U/L (14-36); African American GFR (CKD) >90 (>60 ml/min/1.73 sqM); Albumin 2.2 g/dL (3.5-5.0); Albumin/Globulin Ratio 0.9; Alkaline Phosphatase 106 U/L (38-126); Anion Gap 0 mmol/L; Blood Urea Nitrogen 7 mg/dL (7-17); Calcium 8.5 mg/dL (8.4-10.2); Carbon Dioxide 33 mmol/L (22-30); Chloride 96 mmol/L (98-107); Globulin 2.4 g/dL; Glucose 105 mg/dL (74-99); Magnesium 1.9 mg/dL (1.6-2.3); Non-African American GFR(CKD) >90 (>60 ml/min/1.73 sqM); Potassium 4.3 mmol/L (3.5-5.1); Sodium 129 mmol/L (137-145); Total Bilirubin 0.3 mg/dL (0.2-1.3); Total Protein 4.6 g/dL (6.3-8.2)
[2024-12-03] MEDS ORDERED: LORazepam 2 MG/ML INJ IV PRN (09:11)
[2024-12-03] MEDS ORDERED: DRY MOUTH SPRAY 59 SPRAY/59 ML SPRAY MUCOUS MEM PRN (09:11)
[2024-12-03] MEDS ORDERED: HYDROmorphone 1 MG/ML 1 ML SYRINGE IVP PRN (09:11)
[2024-12-03] MEDS ORDERED: MORPHINE SULFATE 2 MG/ML SYRINGE IV PRN (09:11)
[2024-12-03] MEDS ORDERED: ARTIFICIAL TEARS-HYPROMELLOSE DROPS 15 ML BTL BOTH EYES PRN (09:11)
[2024-12-03 09:44] VITALS: BP 82/60; PULSE 115
--- NOTE | 2024-12-03 11:09 | P.DS ---
Providers Date of admission: 11/22/24 19:16 Attending physician: Meredith Rojas MD Consults: 11/22/24 19:24 Consult Physician Urgent Consulting Provider: Chay Phillips Consult Reason/Comments: Small bowel obstruction Do you want consulting provider notified?: Yes 11/22/24 19:29 Consult Physician Urgent Consulting Provider: Harrison Adams Consult Reason/Comments: Bilateral pleural effusions, history of lung cancer Do you want consulting provider notified?: Yes 11/29/24 16:33 Consult Physician Routine Consulting Provider: Prince Castillo Consult Reason/Comments: lung cancer Do you want consulting provider notified?: Yes Primary care physician: [facility] Course: Discharge Diagnosis: Cadriopulmonary arrest Partial small bowel obstruction with complex fluid collection in anterior abdomen, small bowel obstruction resolved Hypochloremic hyponatremia Opioid-induced constipation Recurrent pleural effusions with chronic small right pleural effusion, recurrent metastatic infusions Stage IV non-small cell lung cancer with history of wedge resection of left upper lobe and wedge resection of right lower lobe COPD with chronic hypoxic respiratory failure Sinus tachycardia, secondary to above Hospital Course: Patient is a very pleasant 59-year-old female with a past medical history of COPD with chronic hypoxic respiratory failure home oxygen dependence on 2 L, stage IV lung cancer on Opdivo and has received 2 infusions so far follows outpatient with Dr. Castillo, history of previous pulmonary emboli, hyperlipidemia, opioid-induced constipation, and GERD. Patient presented to the hospital on 11/22/24 with a chief complaint of complaint of generalized weakness, abdominal pain, nausea, and vomiting. Upon arrival to our facility, patient underwent evaluation in the emergency department. Vital signs upon arrival show blood pressure 118/74, heart rate 130, respiratory rate 20, temp 98.1 F, and SpO2 of 96% on room air. EKG completed showing sinus tachycardia at 123 bpm. Labs completed and reviewed. CBC showing leukocytosis with WBC count of 12.4, normocytic anemia with hemoglobin of 10.2, and thrombocytosis with platelet count of 650. Coagulation profile showing elevated INR of 1.2 and elevated D- dimer of 1.64. BMP showing hypochloremic hyponatremia with sodium of 131 and chloride of 91. Blood glucose was low at 68. Lactic acid was normal findings at 1.1. Magnesium 1.7. Liver profile showing elevated alkaline phosphatase of 129 otherwise normal findings. Troponin was negative at less than 0.012. proBNP 215. Albumin slightly low at 3.3. Procalcitonin negative at 0.19. Urinalysis negative for infection. Influenza A, influenza B, RSV, and COVID PCR negative. CT abdomen and pelvis was completed showing possible small bowel obstruction at the third position of the duodenum with significant dilation of the duodenum, large fluid-filled loculated collection within the anterior abdomen, small pleural effusion, and thickened left adrenal gland. Chest x-ray completed showing moderate right and minimal posterior left pleural effusions. CTA chest reporting stable appearance of patient's right lung cancer, new left pleural effusion, and subcarinal lymph node. 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 On 11/25/2026 patient underwent insertion of ultrasound guided abdominal drain placement for visceral fluid drainage. On 11/26/2024 patient underwent small bowel follow-through which revealed findings suggestive of proximal obstruction within the region of the third portion of the duodenum. Patient taken for EGD by Dr. Phillips on 11/28/2024. EGD reporting mild inflammatory changes in the first portion of the duodenum, biopsies were obtained and a portion of the gastric body just distal to the GE junction with findings of focal gastritis versus early ulceration and biopsies were obtained from this location as wel. Oncology following, reviewed documentation in chart oncologist discussed with patient current regimen is not working and discussed options of alternative therapy versus comfort care and patient requesting continued aggressive therapy stating she is not interested in comfort care at this time. 12/03 in the morning patient was seen by pulmonology team, "CODE STATUS changed to DNR/DNI. at 8:30AM she was found to be altered, barely responsive. RR called, patient was placed on rebreather, continued to be satting in 50s%, BP soft with MAP above 60. Afebrile. Breath sounds present bilaterally, agonal breathing. Bilateral pupils not constricted, reactive. Patient's was called and notifed on decline, as patient earlier expressed her wishes to be switched to DNR/DNI, given her advanced cancer and very complicated resent medical history, she was transitioned to ASSOCIATE DIRECTOR QA, patient passed on 12/03/2024. Patient's family present at bedside. Patient seen and examined at bedside no spontaneous breathing, no heart beat, non reactive to verbal stimuli. A total of 40 minutes of time were spent preparing this complex discharge summary. Patient was discharged on [12/03/2024. Plan - Discharge Summary New Discharge Prescriptions: No Action Albuterol Inhaler [Ventolin Hfa Inhaler] 2 puff INHALATION RT-Q6H PRN PRN Reason: Shortness Of Breath Omeprazole Magnesium [PriLOSEC OTC] 20 mg PO BID Cetirizine HCl [Zyrtec] 10 mg PO DAILY Ipratropium-Albuterol Nebulize [Duoneb 0.5 mg-3 mg/3 ml Soln] 3 ml INHALATION RT-QID 30 Days #300 ml Apixaban [Eliquis] 5 mg PO BID 30 Days #60 tab Budesonide-Formot 160-4.5 Mcg [Symbicort 160-4.5 Mcg Inhaler] 2 puff INHALATION RT-BID Lidocaine/Menthol [Asperflex Max 4%-1% Patch] 1 patch TRANSDERM DAILY PRN PRN Reason: Pain HYDROcodone/APAP 10-325MG [[place] 10-325] 1 tab PO Q6HR PRN PRN Reason: Pain Ondansetron Odt [Zofran ODT] 8 mg PO Q6H PRN PRN Reason: Nausea Linaclotide [Linzess] 145 mcg PO DAILY PRN PRN Reason: IBS guaiFENesin [Mucinex] 600 mg PO Q12HR PRN #30 tab PRN Reason: Cough fentaNYL 50MCG/HR PATCH [Duragesic 50MCG/HR] 1 patch TRANSDERM Q72H patch Simethicone Chew [Mylicon Chew] 80 mg PO QID PRN #90 tab PRN Reason: Gi Upset Sennosides [Senokot] 8.6 mg PO BID #90 tab Gabapentin [Neurontin] 300 mg PO TID #90 cap Discharge Medication List Albuterol Inhaler [Ventolin Hfa Inhaler] 2 puff INHALATION RT-Q6H PRN 09/17/19 [History] Cetirizine HCl [Zyrtec] 10 mg PO DAILY 06/21/22 [History] Omeprazole Magnesium [PriLOSEC OTC] 20 mg PO BID 06/21/22 [History] Apixaban [Eliquis] 5 mg PO BID 30 Days #60 tab 06/24/22 [Rx] Ipratropium-Albuterol Nebulize [Duoneb 0.5 mg-3 mg/3 ml Soln] 3 ml INHALATION RT-QID 30 Days #300 ml 06/24/22 [Rx] Budesonide-Formot 160-4.5 Mcg [Symbicort 160-4.5 Mcg Inhaler] 2 puff INHALATION RT-BID 02/28/23 [History] HYDROcodone/APAP 10-325MG [[place] 10-325] 1 tab PO Q6HR PRN 01/05/24 [History] Lidocaine/Menthol [Asperflex Max 4%-1% Patch] 1 patch TRANSDERM DAILY PRN 01/05/24 [History] Linaclotide [Linzess] 145 mcg PO DAILY PRN 01/05/24 [History] Ondansetron Odt [Zofran ODT] 8 mg PO Q6H PRN 01/05/24 [History] guaiFENesin [Mucinex] 600 mg PO Q12HR PRN #30 tab 01/08/24 [Rx] fentaNYL 50MCG/HR PATCH [Duragesic 50MCG/HR] 1 patch TRANSDERM Q72H patch 09/30 12/23 [Rx] Gabapentin [Neurontin] 300 mg PO TID #90 cap 11/17/24 [Rx] Sennosides [Senokot] 8.6 mg PO BID #90 tab 11/17/24 [Rx] Simethicone Chew [Mylicon Chew] 80 mg PO QID PRN #90 tab 11/17/24 [Rx] Follow up Appointment(s)/Referral(s): Rao Foster MD [Primary Care Provider] - 1-2 days
--- NOTE | 2024-12-03 11:40 | P.PN ---
Subjective Progress Note Date: 12/03/24 59-year-old female well-known to me. She presents to the emergency department, on November 22, at about 3 PM, complaining of generalized weakness, and abdominal pain. She apparently was in the hospital recently, for multiple problems including severe abdominal pain, related to opioid induced constipation, nausea, and vomiting. The patient also has a history of COPD, and has a history of non- small cell lung cancer, involving both lungs, with previous resections, done at [facility]. She unfortunately has recurrent lung cancer. She is not undergoing any treatment at this time. The patient is seen today in room 367. Her chest x-ray shows a right-sided pleural effusion, and a small left-sided pleural effusion. Her CT of the chest, shows no progression of her lung cancer. She is currently on 2 L. She is thought to have a possible bowel obstruction, and an NG tube will be placed. She is getting lactated Ringer's at 100 cc an hour. She is getting nasal O2 at 2 L. Current labs include white count 13.8, hemoglobin 9.6, hematocrit 32.8, and a platelet count of 547,000. Sodium 132, potassium 3.8, chloride 95, CO2 25, BUN 13, creatinine 0.55. Glucose was 92. Calcium is 8.7. Procalcitonin level was normal at 0.19. Viral screen was negative. CT scan of the abdomen and pelvis appears to show an obstruction, at the third portion of the duodenum, and significant dilatation of the duodenum, with a large fluid-filled loculated collection within the anterior abdomen. There is a small left pleural effusion. Progress note dated November 24, 2024. 59-year-old female seen today in room 367. She was admitted with abdominal discomfort. She is currently resting comfortably in bed. No acute distress. She is getting adequate pain control. She is currently on room air. An NG tube was noted. She is getting saline at 10 cc an hour, and lactated Ringer's at 75 cc an hour. Procalcitonin level is 0.19. She continues on Zosyn. Current labs include a white count of 11, hemoglobin 8.9, hematocrit 29.8, platelet count of 534,000. Sodium 133, potassium 3.8, chlorides 94, CO2 29, BUN 13, creatinine 0.63. Blood cultures are negative. Chest x-ray is essentially unchanged. On 11/25/2024, the patient is being seen for a follow-up. The patient has an NG tube in place for small bowel obstruction the patient has also a complex fluid collection in the anterior abdomen as revealed on the CAT scan of the abdomen pelvis was obtained on 11/22/2024. Specifically, the patient has obstruction likely at the level of the third portion of the duodenum with significant dilatation of the duodenum. Large fluid filled loculated collection is also present in the anterior abdomen with a small left-sided pleural effusion. The proximal bowel loops are dilated and there is a large loculated fluid collection displacing normal-appearing small bowel loops and colon. The transition point is possibly the proximal jejunum. CT of the chest was also done on 11/22/2024 revealing a small left-sided pleural effusion. No evidence of any pulmonary embolism. There was a subcarinal lymph node in addition to some consolidation involving the right lung base. The patient has an NG tube in place and total amount of output has been 400 cc for yesterday and 200 cc this morning. The [facility] ient had a IR guided placement of a drain in the abdomen with a total of 2.6 L of dark red tea colored fluid being removed and the fluid was sent for cytology. The patient remains on IV Zosyn. The patient remains on IV fluids. NG tube attached to low intermittent suction.Labs from today showed a white cell count of 10.8 with a hemoglobin 8.5 and a platelet count of 562. The sodium is at 134, potassium is at 3.8, BUN is 12 with a creatinine of 0.6. On 11/26/2024, the patient is being seen for a follow-up. The patient underwent a IR guided drainage of the abdominal fluid and immediately a total of 2.4 L of fluid was aspirated. The drainage is less on today's evaluation. NG tube remains in place for now and the patient has produced approximately 400 cc over the past 8 hours from the NG tube and a total of 120 cc from the abdominal drain. Bowel sounds are hypoactive. She is passing flatus. She remains NPO. No bowel movement activity for now. Respiratory status remains stable and the patient remains on oxygen at 3 L with a pulse ox of 99 to 100%. The patient remains on DuoNeb the regiment [id number] and Symbicort as maintenance regarding COPD. The patient remains on IV Zosyn as an empiric antibiotic coverage. Rest of the medications remain unchanged. General surgery is on the case. The patient remains NPO. The patient may need a small bowel follow- through if there is no improvement over the next 24 to 48 hours. On 11/27/2024, condition essentially unchanged. The patient remains NPO. NG tube is in place and total amount of output from the NG tube has been 600 cc overnight. The same time, the patient had another 150 cc drainage from the abdominal drain. Abdomen is not distended. Bowel sounds are absent. No bowel movement activity yet. The patient is scheduled to undergo an EGD tomorrow. Awaiting ascitic fluid cytology. White cell count is at 12 with a hemoglobin 9 and a platelet count of 428. BUN is 6 with a creatinine of 0.5 and a sodium levels at 135. Overall respiratory status is stable. No dyspnea at rest and she remains on 3 days of oxygen by nasal cannula with a pulse ox of 99 to 100%. No other significant events overnight. The patient needs to be considered for TPN. 1. 11/28/2024, the patient underwent EGD this morning and the patient was found to have no evidence of any duodenal obstruction. NG tube is still in place attached to low intermittent suction. Patient is on D5 normal saline at rate of 75 cc an hour. The patient may need to be started on TPN for nutritional support. Remains on IV Zosyn. Overall respiratory status is unchanged and the patient remains on 2 L of oxygen nasal cannula with a pulse ox of 99%. White cell count is at 10 with a hemoglobin 8.9 and a platelet count of 438. BUN is at 7 with a creatinine of 0.5 and a sodium level is at 134 and a potassium level is at 3.3. The ascitic fluid that was aspirated earlier was malignant and consistent with pulmonary non-small cell lung cancer. The output from the NG tube has been 750 cc over the past 8 hours. The abdominal drain has produced another 500 cc of output. On 11/29/2024, the patient's abdominal drain has been dislodged and the NG tube has been removed. She is trying to take some clear liquid diet. She had a small bowel movement. Noted ascitic fluid that was drained earlier was consistent with malignancy. A follow-up CAT scan of the abdomen was ordered for today. EGD that was done on 11/28/2024 showed gastritis without any obstruction. Respiratory status remains unchanged. She remains on 3 L with a pulse ox of 99 %. She is quite debilitated. 11/30/2024, the patient is taking some limited amount of clear liquid diet. She states that she is passing some gas and flatus. CAT scan of the abdomen was repeated on 11/29/2024 and there is decrease in the amount of abdominal ascitic fluid. The drainage tube has been removed. There is bilateral pleural effusion. There is diffuse anasarca. There is also evidence of omental caking as the patient also has malignant ascitic fluid. Doppler lower extremities been negative. Chest x-ray is showing bilateral pleural effusion and consolidation right more than left. She remains on oxygen at 2 L/min nasal cannula with pulse ox of 98%. Continues to have some sinus tachycardia. Oncology has been consulted. On 12/01/2024, overall condition is stable and unchanged. The patient denies having any significant shortness of breath. Denies having any nausea vomiting o r abdominal pain. She has a partial small bowel obstruction with the third portion of the duodenum. She is also status post drainage of the ascitic fluid in the abdomen determined to be malignant. She is passing flatus. She is passing bowel movement. The white cell count of 12.7 with a hemoglobin 8.3 and a platelet count of 458. BUN is at 4 with a creatinine 0.49 and sodium levels at 133 and a potassium level is at 3.3. LFTs are normal. Remains on DuoNeb nebulized treatments [id number]. Remains on Symbicort. Remains on Lovenox DVT prophylaxis. Fentanyl patch for pain control. Oxygen requirements remain unchanged and stable and the patient remains on 3 L with a pulse ox of 9 7%. The patient is seen today December 02, 2024 in follow-up on the regular medical floor. Awake and alert in no acute distress. Maintaining O2 saturations in the 90s on 3 L/min per nasal cannula. She is currently up with a walker and assistance. She denies any worsening shortness of breath, cough or congestion. She remains quite weak. Abdominal fluid cultures reveal no growth. Gastric biopsy pending. Dopplers of the lower extremities were negative for DVT. White count 14.5. Hemoglobin 9.0. Platelets 500. Sodium 139. Potassium 4.0. Bicarb 28. BUN 5. Creatinine 0.5. Glucose 95. INR 1.1. She remains on DuoNeb and elations, Symbicort. Lovenox for DVT prophylaxis. Her pain is well- managed. The patient is seen today December 03, 2024 in follow-up on the oncology unit. She is currently sitting up in a chair at the bedside. She is awake and alert. She is feeling quite weak today. 2 saturations in the low 90s on 4 L/min per nasal cannula. She is afebrile. Blood pressure stable. White count 20.0. Hemoglobin 9.7. Platelets 616. Sodium 129. Potassium 4.3. Bicarb 33. BUN 7. Creatinine 0.58. Glucose 105. She is continued on DuoNeb inhalations, Symbicort. Lovenox for DVT prophylaxis. She has a Dilaudid MANAGER [employer]ION pump in place for pain control. Does have some significant peripheral edema. She will receive Lasix 40 mg IVP x 1. Objective - Vital Signs Vital signs: Vital Signs Temp 97.6 F 12/03/24 08:00 Pulse 115 H 12/03/24 08:52 Resp 24 12/03/24 08:00 BP 82/60 12/03/24 08:52 Pulse Ox 55 L 12/03/24 08:52 FiO2 Intake & Output 12/02/24 12/03/24 12/03/24 18:59 06:59 18:59 Intake Total 600 Output Total 200 225 Balance 400 -225 Weight 56.7 kg Intake: IV 120 0.9 Normal saline 120 Oral 480 Output: Urine 200 225 Other: Voiding Method Diaper Diaper Diaper External Catheter External Catheter External Catheter # Voids 1 - Exam GENERAL EXAM: Alert, very weak, frail, 59-year-old female, sitting up in a chair, on 4 L nasal cannula, fairly comfortable. HEAD: Normocephalic. EYES: Normal reaction of pupils, equal size. NOSE: Clear with pink turbinates. THROAT: No erythema or exudates. NECK: No masses, no JVD. CHEST: No chest wall deformity. LUNGS: Equal air entry with bilateral scattered rhonchi, crackles in the posterior bases right greater than left. CVS: S1 and S2 normal with no audible murmur, regular rhythm. ABDOMEN: No hepatosplenomegaly, normal bowel sounds, no guarding or rigidity. SPINE: No scoliosis or deformity SKIN: No rashes CENTRAL NERVOUS SYSTEM: No focal deficits, tone is normal in all 4 extremities. EXTREMITIES: There is no peripheral edema. No clubbing, no cyanosis. Peripheral pulses are intact. - Labs CBC & Chem 7: 12/03/24 08:22 12/03/24 08:22 Labs: Abnormal Lab Results - Last 24 Hours (Table) 12/03/24 12/03/24 12/03/24 Range/Units 00:00 08:22 08:22 WBC 20.0 H (3.8-10.6) k/uL Hgb 9.7 L (11.4-16.0) gm/dL MCH 24.9 L (25.0-35.0) pg MCHC 27.5 L (31.0-37.0) g/dL RDW 16.7 H (11.5-15.5) % Plt Count 616 H (150-450) k/uL Sodium 129 L (137-145) mmol/L Chloride 96 L (98-107) mmol/L Carbon Dioxide 33 H (22-30) mmol/L Glucose 105 H (74-99) mg/dL POC Glucose (mg/dL) 116 H (70-110) mg/dL Total Protein 4.6 L (6.3-8.2) g/dL Albumin 2.2 L (3.5-5.0) g/dL Assessment and Plan Assessment: Abdominal pain with small bowel obstruction and a large loculated fluid collection displacing the normal appearing small bowel loops and colon with a transition zone appearing to be within the proximal jejunum. At the same time, the patient underwent an IR guided placement of a drainage catheter in regards to the abdominal fluid collection. The abdominal drain is still in place. The patient continues to have bowel obstruction. The ascitic fluid aspirated was positive for malignancy consistent with non-small cell lung cancer. Follow-up CAT scan of the abdomen and pelvis on 11/29/2024 shows decrease in the ascitic fluid. There is omental caking. Oral intake remains quite diminished. Passing flatus. Stage IV lung cancer. 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 Previously maintained on chemotherapy with Alimta and carboplatin, could not tolerate side effects. PET scan taken on 07/25/2024 showing overall mixed response to therapy with slightly increased radiotracer activity throughout the right pleural and anterior right seventh rib with mild decrease in radiotracer activity within the right 10th rib and poste rior costophrenic pleural region. Development of nonspecific left anterior peritoneal stranding changes with mild FDG uptake, could represent early peritoneal metastasis versus other etiologies such as infectious/inflammatory nature. Currently on Opdivo, has received 2 infusions so far. She has a known history of lung cancer originally diagnosed with wedge resection of the left upper lobe October 2019, as well as, a right lung resection in February 2021. A follow-up PET scan in February 2023 indicating possible disease recurrence. 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 Her established oncologist is Dr. Castillo. Previous hospitalization, secondary to opioid-induced constipation. Advanced COPD with an FEV1 of 31% of predicted The patient has ongoing volume loss and extensive pleural-parenchymal opacities throughout the right hemithorax and the patient has a pleural rind in the lower lung there is a progressively increasing since 2022. There is also confluent lower lobe opacities that have increased since 2022 and this is consistent with progression of her underlying non-small cell lung cancer Chronic hypoxic respiratory failure maintained on oxygen 2 L/min nasal cannula History of pulmonary embolism, maintained on anticoagulation with Eliquis History of hyperlipidemia. History of gastroesophageal reflux disease. History of tobacco use. Plan: The patient was seen and evaluated Labs and medications reviewed She is quite weak today Dr. Underwood had a discussion with her regarding CODE STATUS She is quite adamant on being a DO NOT RESUSCITATE CODE STATUS DNR order was placed per her request She may benefit from a hospice consult/comfort care Continue the current treatment plan for now This patient was seen independently by the pulmonary nurse practitioner addressing pulmonary issues I have personally seen and examined the patient, performed the documentation and the assessment and plan as written. Number of minutes spent on the visit: 25 Dictation was produced using [employer]ation software. Please excuse any grammatical, word or spelling errors.
[2024-12-03] MEDS: MORPHINE SULFATE (100 MG/2 ML) 100 MG in SODIUM CHLORIDE 0.9% 100 ML IV SCH (14:12)
[2024-12-03] MEDS: MORPHINE SULFATE 2 MG/ML SYRINGE IVP STA (14:12)
--- NOTE | 2024-12-04 12:52 | CDI ---
Documentation Clarification Form Date: 12/04/2024 12:43:35 PM From: Maddi Stanley Phone: Admit Date: 11/22/2024 07:16:00 PM Patient Name: Cat Rodriguez Visit Number: [id number] Discharge Date: 12/03/2024 02:04:00 PM ATTENTION: The Clinical Documentation Specialists (CDI) and [facility] Coding Staff appreciate your assistance in clarifying documentation. Please respond to the clarification below the line at the bottom and electronically sign. The CDI & [facility] Coding staff will review the response and follow-up if needed. Please note: Queries are made part of the Legal Health Record. If you have any questions, please contact the author of this message via ITS. Doctor/Provider: Meredith Rojas The final diagnosis of the pathology report states acute erosive gastritis. Coding guidelines do not allow coding professionals to code based on pathology results; therefore, clarification is requested. History/risk factors: 59yo F, Partial SBO w fluid,lobar PNA, malig ascites, PEA, hypochloremia,hyponatremia, opioid-induced constipation, recurrentmalig pleural effusionswith chronic small rightpleural effusion, stage IVnon-small cell lung cancersp lobectomy, COPD, CHRF on O2 Clinical Indicators: Specimen is labeled gastric body and consists of a 0.3 cm pink/segovia soft tissue fragment. Entirely submitted. Treatment: stomach, Biopsy - Gastric body Please clarify if you agree with the pathology report diagnosis of acute erosive gastritis: [ ] Yes [ ] No [ ] Other (please specify) [ ] Unable to determine (Template Last Revised: December 2020) unable to determine , defer to GI MTDD
--- NOTE | 2024-12-15 15:01 | CDI ---
Documentation Clarification Form Date: 12/15/2024 02:57:23 PM From: Maddi Stanley Phone: Admit Date: 11/22/2024 07:16:00 PM Patient Name: Cat Rodriguez Visit Number: [id number] Discharge Date: 12/03/2024 02:04:00 PM ATTENTION: The Clinical Documentation Specialists (CDI) and [facility] Coding Staff appreciate your assistance in clarifying documentation. Please respond to the clarification below the line at the bottom and electronically sign. The CDI & [facility] Coding staff will review the response and follow-up if needed. Please note: Queries are made part of the Legal Health Record. If you have any questions, please contact the author of this message via ITS. Doctor/Provider: Dennys The final diagnosis of the pathology report statesacute erosive gastritis. Coding guidelines do not allow coding professionals to code based on pathology results; therefore, clarification is requested. History/risk factors: 59yo F,Partial SBOw fluid,lobar PNA, maligascites, PEA,hypochloremia,hyponatremia,opioid-induced constipation, recurrentmalig pleural effusionswith chronic small rightpleural effusion, stage IVnon-small cell lung cancersplobectomy,COPD, CHRF on O2 Clinical Indicators: Specimen is labeled gastric body and consists of a 0.3 cm pink/segovia soft tissue fragment. Entirely submitted. Treatment: stomach,Biopsy- Gastric body Please clarify if you agree with the pathology report diagnosis ofacute erosive gastritis: [ ] Yes [ ] No [ ] Other (please specify) [ ] Unable to determine (Template LastRevised: December 2020) MTDD
--- NOTE | 2024-12-15 15:15 | CDI ---
Documentation Clarification Form Date: 12/10/2024 03:03:11 PM From: Maddi Stanley Phone: Admit Date: 11/22/2024 07:16:00 PM Patient Name: Cat Rodriguez Visit Number: [id number] Discharge Date: 12/03/2024 02:04:00 PM ATTENTION: The Clinical Documentation Specialists (CDI) and [facility] Coding Staff appreciate your assistance in clarifying documentation. Please respond to the clarification below the line at the bottom and electronically sign. The CDI & [facility] Coding staff will review the response and follow-up if needed. Please note: Queries are made part of the Legal Health Record. If you have any questions, please contact the author of this message via ITS. Doctor/Provider: Ruben Soriano Malnutrition is documented per Procedure Note 11/29. Additional clarification regarding the severity of malnutrition is requested. History/Risk Factors: 59yo F, Partial SBO w fluid, lobar PNA, malig ascites, PEA, hypochloremia, hyponatremia, opioid-induced constipation, recurrent malig pleural effusions with chronic small right pleural effusion, stage IV non-small cell lung cancer sp lobectomy, COPD, CHRF on O2 Clinical Indicators: Current BMI: 22.9 Strict NPO; appears older than stated age,malnourishedand emaciated; Grossmuscle atrophy Consult Note 11/30- 01/04/23-Pt here today for acute visit, c/o severe rib/chest nervepain, R>L, "burning, ripping, like glass being pushed in", interferes with eating, sleeping and breathing. She was on gabapentin 100mg PO BID, this was increased to 200mg BID a few month back and it helped but only briefly. She has tried Tylenol, ibuprofen and Cooper with mild, temporary relief. Nofevers,sweats, new resp symptoms. Sheis on anticoagulationfor PE,nobleedingto report. 04/30/24: C/OSOB,fatigue,noteating well 06/26/24: Was hospitalized withweaknessdehydration. Lost 10 LBS last 4 weeks, she is veryweak, unable to stand up 08/07/24:notfeeling well, C/OSOBIncreasing R sidedchest wall pain. PET Scan: Progressed 10/02/24: C/O losing weight,painis controlled with Duragesic Cooper 10. Tolerating Opdivo well (Lenoxinfusion) Treatment: patient is taking some limited amount of clear liquid diet. Biopsy of gastric body- H. Pyloriimmunostain performed onblockA1 and evaluated with an appropriate positive controlis negative forH. Pyloriorganisms. Please clarify the severity of malnutrition, if known: [ ] Mild Protein-Calorie Malnutrition [ ] Moderate Protein-Calorie Malnutrition [ ] Severe Protein-Calorie Malnutrition [ ] Malnutrition, unknown severity [ ] Other condition, please specify [ ] Unable to Determine (Template Last Revised: April 2023) MTDD
--- NOTE | 2024-12-18 12:49 | CDI ---
Documentation Clarification Form Date: 12/18/2024 12:44:36 PM From: Maddi Stanley Phone: Admit Date: 11/22/2024 07:16:00 PM Patient Name: Cat Rodriguez Visit Number: [id number] Discharge Date: 12/03/2024 02:04:00 PM ATTENTION: The Clinical Documentation Specialists (CDI) and [facility] Coding Staff appreciate your assistance in clarifying documentation. Please respond to the clarification below the line at the bottom and electronically sign. The CDI & [facility] Coding staff will review the response and follow-up if needed. Please note: Queries are made part of the Legal Health Record. If you have any questions, please contact the author of this message via ITS. Doctor/Provider: Ruben Soriano Thank you for acknowledging the previous query; however, it lacks a response. Malnutrition is documented per Procedure Note 11/29. Additional clarification regarding the severity of malnutrition is requested. History/Risk Factors: 59yo F, Partial SBO w fluid, lobar PNA, malig ascites, PEA, hypochloremia, hyponatremia, opioid-induced constipation, recurrent malig pleural effusions with chronic small right pleural effusion, stage IV non-small cell lung cancer sp lobectomy, COPD, CHRF on O2 Clinical Indicators: Current BMI: 22.9 Strict NPO; appears older than stated age, malnourished and emaciated; Gross muscle atrophy Consult Note 11/30- 01/04/23-Pt here today for acute visit, c/o severe rib/chest nerve pain, R>L, "burning, ripping, like glass being pushed in", interferes with eating, sleeping and breathing. She was on gabapentin 100mg PO BID, this was increased to 200mg BID a few month back and it helped but only briefly. She has tried Tylenol, Ibuprofen and [place] with mild, temporary relief. No fevers, sweats, new resp symptoms. She is on anticoagulation for PE, no bleeding to report. 04/30/24: C/O SOB, fatigue, not eating well 06/26/24: Was hospitalized with weakness dehydration. Lost 10 LBS last 4 weeks, she is very weak, unable to stand up 08/07/24: not feeling well, C/O SOB Increasing R sided chest wall pain. PET Scan: Progressed 10/02/24: C/O losing weight, pain is controlled with Duragesic [place] 10. Tolerating Opdivo well ([place] infusion) Treatment: patient is taking some limited amount of clear liquid diet. Biopsy of gastric body- H. Pylori immunostain performed on block A1 and evaluated with an appropriate positive control is negative for H. Pylori organisms. Please clarify the severity of malnutrition, if known: [ ] Mild Protein-Calorie Malnutrition [ ] Moderate Protein-Calorie Malnutrition [ ] Severe Protein-Calorie Malnutrition [x ] Malnutrition, unknown severity [ ] Other condition, please specify [ ] Unable to Determine (Template Last Revised: April 2023) MTDD
--- NOTE | 2024-12-18 12:53 | CDI ---
Documentation Clarification Form Date: 12/18/2024 12:51:39 PM From: Maddi Stanley Phone: Admit Date: 11/22/2024 07:16:00 PM Patient Name: Cat Rodriguez Visit Number: [id number] Discharge Date: 12/03/2024 02:04:00 PM ATTENTION: The Clinical Documentation Specialists (CDI) and [facility] Coding Staff appreciate your assistance in clarifying documentation. Please respond to the clarification below the line at the bottom and electronically sign. The CDI & [facility] Coding staff will review the response and follow-up if needed. Please note: Queries are made part of the Legal Health Record. If you have any questions, please contact the author of this message via ITS. Doctor/Provider: Josue Garcia Thank you for acknowledging the previous query; however, it lacks a response. The final diagnosis of the pathology report states acute erosive gastritis. Coding guidelines do not allow coding professionals to code based on pathology results; therefore, clarification is requested. History/risk factors: 59yo F, Partial SBO w fluid , lobar PNA, malig ascites, PEA, hypochloremia, hyponatremia, opioid-induced constipation, recurrent malig pleural effusions with chronic small right pleural effusion, stage IV non-small cell lung cancer sp lobectomy, COPD, CHRF on O2 Clinical Indicators: Specimen is labeled gastric body and consists of a 0.3 cm pink/segovia soft tissue fragment. Entirely submitted. Treatment: stomach, Biopsy - Gastric body Please clarify if you agree with the pathology report diagnosis of acute erosive gastritis: [ ] Yes [ ] No [ ] Other (please specify) [ ] Unable to determine (Template Last Revised: December 2020) MTDD
--- NOTE | 2024-12-21 10:39 | CDI ---
Documentation Clarification Form Date: 12/21/2024 10:36:22 AM From: Maddi Stanley Phone: Admit Date: 11/22/2024 07:16:00 PM Patient Name: Cat Rodriguez Visit Number: [id number] Discharge Date: 12/03/2024 02:04:00 PM ATTENTION: The Clinical Documentation Specialists (CDI) and [facility] Coding Staff appreciate your assistance in clarifying documentation. Please respond to the clarification below the line at the bottom and electronically sign. The CDI & [facility] Coding staff will review the response and follow-up if needed. Please note: Queries are made part of the Legal Health Record. If you have any questions, please contact the author of this message via ITS. Doctor/Provider: Josue Garcia Thank you for acknowledging the previous two queries; however, each has lacked a response. The final diagnosis of the pathology report statesacute erosive gastritis. Coding guidelines do not allow coding professionals to code based on pathology results; therefore, clarification is requested. History/risk factors: 59yo F,Partial SBOw fluid ,lobar PNA, maligascites, PEA,hypochloremia,hyponatremia,opioid-induced constipation, recurrent malig pleural effusionswith chronic small rightpleural effusion, stage IVnon-small cell lung cancersplobectomy,COPD, CHRF on O2 Clinical Indicators: Specimen is labeled gastric body and consists of a 0. 3 cm pink/segovia soft tissue fragment. Entirely submitted. Treatment: stomach,Biopsy- Gastric body Please clarify if you agree with the pathology report diagnosis ofacute erosive gastritis: [ ] Yes [ ] No [ ] Other (please specify) [ ] Unable to determine (Template LastRevised: December 2020) MTDD
--- NOTE | 2024-12-25 11:56 | CDI ---
Documentation Clarification Form Date: 12/25/2024 11:52:54 AM From: Maddi Stanley Phone: Admit Date: 11/22/2024 07:16:00 PM Patient Name: Cat Rodriguez Visit Number: [id number] Discharge Date: 12/03/2024 02:04:00 PM ATTENTION: The Clinical Documentation Specialists (CDI) and [facility] Coding Staff appreciate your assistance in clarifying documentation. Please respond to the clarification below the line at the bottom and electronically sign. The CDI & [facility] Coding staff will review the response and follow-up if needed. Please note: Queries are made part of the Legal Health Record. If you have any questions, please contact the author of this message via ITS. Doctor/Provider: Josue Garcia Thank you for acknowledging the previous two queries; however, each has lacked a response. The final diagnosis of the pathology report statesacute erosive gastritis. Coding guidelines do not allow coding professionals to code based on pathology results; therefore, clarification is requested. History/risk factors: 59yo F,Partial SBOw fluid ,lobar PNA, maligascites, PEA,hypochloremia,hyponatremia,opioid-induced constipation, recurrent malig pleural effusionswith chronic small rightpleural effusion, stage IVnon-small cell lung cancersplobectomy,COPD, CHRF on O2 Clinical Indicators: Specimen is labeled gastric body and consists of a 0.3 cm pink/segovia soft tissue fragment. Entirely submitted. Treatment: stomach,Biopsy- Gastric body Please clarify if you agree with the pathology report diagnosis ofacute erosive gastritis: [ ] Yes [ ] No [ ] Other (please specify) [ ] Unable to determine (Template LastRevised: December 2020) MTDD
--- NOTE | 2024-12-30 09:45 | CDI ---
Documentation Clarification Form Date: 12/30/2024 09:36:09 AM From: Maddi Stanley Phone: Admit Date: 11/22/2024 07:16:00 PM Patient Name: Cat Rodriguez Visit Number: [id number] Discharge Date: 12/03/2024 02:04:00 PM ATTENTION: The Clinical Documentation Specialists (CDI) and [facility] Coding Staff appreciate your assistance in clarifying documentation. Please respond to the clarification below the line at the bottom and electronically sign. The CDI & [facility] Coding staff will review the response and follow-up if needed. Please note: Queries are made part of the Legal Health Record. If you have any questions, please contact the author of this message via ITS. Doctor/Provider: Josue Garcia Thank you for acknowledging the previous multiple queries; however, each has lacked a response. The final diagnosis of the pathology report statesacute erosive gastritis. Coding guidelines do not allow coding professionals to code based on pathology results; therefore, clarification is requested. History/risk factors: 59yo F,Partial SBOw fluid ,lobar PNA, maligascites, PEA,hypochloremia,hyponatremia,opioid-induced constipation, recurrent malig pleural effusionswith chronic small rightpleural effusion, stage IVnon-small cell lung cancersplobectomy,COPD, CHRF on O2 Clinical Indicators: Specimen is labeled gastric body and consists of a 0.3 cm pink/segovia soft tissue fragment. Treatment: stomach,Biopsy- Gastric body Please clarify if you agree with the pathology report diagnosis ofacute erosive gastritis: [ ] Yes [ ] No [ ] Other (please specify) [ ] Unable to determine (Template LastRevised: December 2020) MTDD
--- NOTE | 2024-12-31 19:19 | CDI ---
Documentation Clarification Form Date: 12/31/2024 07:18:19 PM From: Maddi Stanley Phone: Admit Date: 11/22/2024 07:16:00 PM Patient Name: Cat Rodriguez Visit Number: [id number] Discharge Date: 12/03/2024 02:04:00 PM ATTENTION: The Clinical Documentation Specialists (CDI) and [facility] Coding Staff appreciate your assistance in clarifying documentation. Please respond to the clarification below the line at the bottom and electronically sign. The CDI & [facility] Coding staff will review the response and follow-up if needed. Please note: Queries are made part of the Legal Health Record. If you have any questions, please contact the author of this message via ITS. Doctor/Provider: Josue Garcia Thank you for acknowledging the previous multiple queries; however, each has lacked a response. The final diagnosis of the pathology report states acute erosive gastritis. Coding guidelines do not allow coding professionals to code based on pathology results; therefore, clarification is requested. History/risk factors: 59yo F, Partial SBO w fluid , lobar PNA, malig ascites, PEA, hypochloremia, hyponatremia, opioid-induced constipation, recurrent malig pleural effusions with chronic small right pleural effusion, stage IV non-small cell lung cancer sp lobectomy, COPD, CHRF on O2 Clinical Indicators: Specimen is labeled gastric body and consists of a 0.3 cm pink/segovia soft tissue fragment. Treatment: stomach, Biopsy - Gastric body Please clarify if you agree with the pathology report diagnosis of acute erosive gastritis: [ ] Yes [ ] No [ ] Other (please specify) [ ] Unable to determine (Template Last Revised: December 2020) MTDD
--- NOTE | 2025-01-02 11:48 | CDI ---
Documentation Clarification Form Date: 01/02/2025 11:46:49 AM From: Maddi Stanley Phone: Admit Date: 11/22/2024 07:16:00 PM Patient Name: Cat Rodriguez Visit Number: [id number] Discharge Date: 12/03/2024 02:04:00 PM ATTENTION: The Clinical Documentation Specialists (CDI) and [facility] Coding Staff appreciate your assistance in clarifying documentation. Please respond to the clarification below the line at the bottom and electronically sign. The CDI & [facility] Coding staff will review the response and follow-up if needed. Please note: Queries are made part of the Legal Health Record. If you have any questions, please contact the author of this message via ITS. Doctor/Provider: Cony Goode The final diagnosis of the pathology report statesacute erosive gastritis.Coding guidelines do not allow coding professionals to code based on pathology results; therefore, clarification is requested. History/risk factors: 59yo F,Partial SBOw fluid ,lobar PNA, maligascites, PEA,hypochloremia,hyponatremia,opioid-induced constipation, recurrent malig pleural effusionswith chronic small rightpleural effusion, stage IVnon-small cell lung cancersplobectomy,COPD, CHRF on O2 Clinical Indicators: Specimen is labeled gastric body and consists of a 0.3 cm pink/segovia soft tissue fragment. Treatment: stomach,Biopsy- Gastric body Please clarify if you agree with the pathology report diagnosis ofacute erosive gastritis: [x ] Yes [ ] No [ ] Other (please specify) [ ] Unable to determine (Template LastRevised: December 2020) MTDD
== END 2024-12-03 14:04 | disposition expired | DRG 389 ==
LOC: EC 15:04 → 4SSUR 19:16 → 5NMEDONC 21:12 → 3SCARD 11-23 06:20 → 5NMEDONC 11-27 06:03
PROVIDERS: ADMIT Internal Medicine; ATTEND Internal Medicine
PROC: 0D9670Z Drainage of Stomach with Drainage Device, Via Natural or Artificial Opening (ICD-10-PCS; 2024-11-22)
PROC: 0W9G30Z Drainage of Peritoneal Cavity with Drainage Device, Percutaneous Approach (ICD-10-PCS; 2024-11-25 13:05)
PROC: 0DB68ZX Excision of Stomach, Via Natural or Artificial Opening Endoscopic, Diagnostic (ICD-10-PCS; principal; 2024-11-28 09:30)
PROC: 3E03329 Introduction of Other Anti-infective into Peripheral Vein, Percutaneous Approach (ICD-10-PCS; 2024-11-29)
DX: K56.690 Other partial intestinal obstruction (principal); C38.4 Malignant neoplasm of pleura; E46 Unspecified protein-calorie malnutrition; R18.0 Malignant ascites; R64 Cachexia; E87.1 Hypo-osmolality and hyponatremia; J44.0 Chronic obstructive pulmonary disease with (acute) lower respiratory infection; C78.6 Secondary malignant neoplasm of retroperitoneum and peritoneum; E88.09 Other disorders of plasma-protein metabolism, not elsewhere classified; E86.1 Hypovolemia; J91.0 Malignant pleural effusion; D63.0 Anemia in neoplastic disease; J96.11 Chronic respiratory failure with hypoxia; I46.8 Cardiac arrest due to other underlying condition; Z51.5 Encounter for palliative care; Z66 Do not resuscitate; K29.00 Acute gastritis without bleeding; M62.50 Muscle wasting and atrophy, not elsewhere classified, unspecified site; Z99.81 Dependence on supplemental oxygen; E78.5 Hyperlipidemia, unspecified; K44.9 Diaphragmatic hernia without obstruction or gangrene; E87.6 Hypokalemia; R54 Age-related physical debility; T40.2X5A Adverse effect of other opioids, initial encounter; K59.03 Drug induced constipation; D75.838 Other thrombocytosis; K21.9 Gastro-esophageal reflux disease without esophagitis; Z53.29 Procedure and treatment not carried out because of patient's decision for other reasons; E87.8 Other disorders of electrolyte and fluid balance, not elsewhere classified; D72.828 Other elevated white blood cell count; E83.42 Hypomagnesemia; G62.9 Polyneuropathy, unspecified; G89.3 Neoplasm related pain (acute) (chronic); E87.70 Fluid overload, unspecified; R79.1 Abnormal coagulation profile; W19.XXXA Unspecified fall, initial encounter; E16.2 Hypoglycemia, unspecified; Y92.239 Unspecified place in hospital as the place of occurrence of the external cause; Z79.01 Long term (current) use of anticoagulants; Z86.711 Personal history of pulmonary embolism; Z85.118 Personal history of other malignant neoplasm of bronchus and lung; Z87.891 Personal history of nicotine dependence; Z92.21 Personal history of antineoplastic chemotherapy; Z90.2 Acquired absence of lung [part of]; Z79.51 Long term (current) use of inhaled steroids; Z79.899 Other long term (current) drug therapy; Z68.22 Body mass index [BMI] 22.0-22.9, adult
CPT/HCPCS: 36410; 36415; 43239; 49405; 71045; 71046; 71275; 74177; 74250; 76937; 76942; 80048; 80053; 81001; 82150; 82945; 83605; 83615; 83735; 83880; 84145; 84157; 84484; 85025; 85027; 85379; 85610; 85730; 87040; 87070; 87075; 87102; 87116; 87205; 87206; 87636; 88108; 88305; 88341; 88342; 89050; 93005; 93970; 94640; 94760; 96361; 96374; 96375; 96376; 99285